=== PATIENT | female | born 1965 | race Caucasian/White ===

== ENCOUNTER 2017-01-30 05:38 | Outpatient (CLI) | payer BC ==
[~2017-01-30] VITALS: Ht 160 cm; Wt 68.9 kg
[~2017-01-30 05:38] MED LIST: ATEN50TA PO; ATOR10TA66; ATOR20TA66 PO; CYCL10TA9 PO; CYCL5TAB PO; DIAZ-345 PO; DIAZ5TAB3 PO; FLDR.1T PO; GABA-488; GABA600T2 PO; HYDR-1231 PO; HYDR12.56 PO; LEVO500T69 PO; LORA-1025 PO; METO-352 PO; NAPR500T3 PO; OMEP20TA7 PO; ONDA-42 SL; PARO20TA57 PO; SERT25TA5 PO; SERT50TA2 PO; SERT50TA9 PO; TRAM200T31 PO; TRAM50TA2 PO; WALK1EAC23 MC
[2017-01-30] MEDS ORDERED: PANT40TA2 PO (15:31)
== END 2017-01-30 15:33 ==
LOC: PREOP 05:38
PROVIDERS: ATTEND Surgery
DX: Z01.818 Encounter for other preprocedural examination (principal); Z12.11 Encounter for screening for malignant neoplasm of colon; K21.9 Gastro-esophageal reflux disease without esophagitis

== ENCOUNTER 2017-02-04 09:01 | Day surgery (SDC) | payer BC ==
[~2017-02-04] VITALS: Ht 160 cm; Wt 68.9 kg
[~2017-02-04 09:01] MED LIST changes: +PANT40TA2 PO
[2017-02-04] MEDS ORDERED: NS IV 1000 ML 1,000 ML IV STA (09:12)
[2017-02-04] MEDS ORDERED: HURRICAINE EXT TUBE (BENZOCAINE) XX PRN (09:15)
[2017-02-04] MEDS ORDERED: NS IV 1000 ML 1,000 ML ONE (09:16)
[2017-02-04 09:27] VITALS: BP 133/86
[2017-02-04] MEDS ORDERED: MIDAZOLAM 2 MG/2 ML (VERSED) VIAL ONE (10:31)
[2017-02-04] MEDS ORDERED: proPOfol 200 MG/20 ML (DIPRIVAN) VIAL IV ONE (10:31)
--- NOTE | 2017-02-04 10:41 | Progress Note-Pre Operative ---
Pre-Operative Progress Note H&P Reviewed The H&P was reviewed, patient examined and no changes noted. Date H&P Reviewed: February 04, 2017 Time H&P Reviewed: 10:39 Pre-Operative Diagnosis: gerd, screening colonoscopy EUFEMIA RAMOS DO February 04, 2017 10:41 am
[2017-02-04] MEDS ORDERED: SUCR1TAB36 PO (11:16)
--- NOTE | 2017-02-04 11:19 | Progress Note-Post Operative ---
Post-Operative Progess Note Surgeon (s)/Asphalt Dauber (s) Surgeon EUFEMIA RAMOS DO Asphalt Dauber: na Pre-Operative Diagnosis gerd, screening colonoscopy Post-Operative Diagnosis hiatal hernia, esophageal erosions, incomplete colonoscopy Procedure & Operative Findings Date of Procedure 02/04/17 Procedure Performed/Findings egd c biopsies, incomplete colonoscopy Anesthesia Type per [facility] Estimated Blood Loss Estimated blood loss (mL): none Specimens/Packing Specimens Removed antrum, distal esophagus EUFEMIA RAMOS DO February 04, 2017 11:19 am
--- NOTE | 2017-02-04 11:19 | Discharge Inst-Simple/Standard ---
Discharge Inst-Standard Discharge Medications New, Converted or Re-Newed RX: Transmitted to Pharmacy Patient Instructions/Follow Up Plan of Care/Instructions/FU: Follow up with Dr. Sanchez in 3 weeks Take protonix 40 mg twice a day for 2 weeks and then once a day after that. Activity as Tolerated: Yes Discharge Diet: No Restrictions SHAYY CHEN APRN February 04, 2017 11:19
[2017-02-04] MEDS ORDERED: HURRICAINE EXT TUBE (BENZOCAINE) ONE (11:25)
[2017-02-04 11:35] VITALS: BP 118/81
[2017-02-04 12:10] VITALS: BP 117/81
--- NOTE | 2017-02-04 12:57 | OPERATIVE REPORT ---
DATE OF SERVICE: 02/04/2017 PREOPERATIVE DIAGNOSIS: GERD, screening colonoscopy. POSTOPERATIVE DIAGNOSES: Hiatal hernia, esophageal erosions and incomplete colonoscopy. PROCEDURE: EGD with biopsies and incomplete colonoscopy. SURGEON: Nils Sanchez DO. ANESTHESIA: Per MDA. ESTIMATED BLOOD LOSS: None. COMPLICATIONS: None. INDICATIONS: The patient is a 51-year-old female with worsening GERD symptoms. She has not had a colonoscopy before. She understands risks and benefits of procedures and wished to proceed with procedure. Consent was signed and in the chart. PROCEDURE: The patient was taken to the endoscopy suite, placed in left lateral recumbent position. Timeout was performed. Scope was inserted in mouth, down into esophagus, stomach and into the duodenum without difficulty. There were no polyps, masses or ulcerations within the duodenum. The scope was slowly retracted back into the stomach, where it was further insufflated. There were no polyps, masses or ulcerations present within the stomach. Biopsy of the antrum was obtained. Scope was retroflexed, noting moderate sized hiatal hernia. Scope was slowly returned to its normal position, slowly withdrawn in the distal esophagus, there was some esophageal erosions present. Biopsy was obtained. Scope was slowly retracted back noting no other pathology. Digital rectal exam was performed. There were no palpable polyps, masses or ulcerations. Scope was inserted in the rectum and advanced to the rectum and into the sigmoid colon. Due to some fixed points within the sigmoid colon, the scope could not be advanced. The patient was repositioned multiple times trying to reposition the colon for further advancement but the scope was unable to be further advanced. At that time, it was decided to slowly retract the scope back. There were no polyps, masses or ulcerations within the sigmoid colon visualized or within the rectum. Scope was also retroflexed in the rectum, noting no other pathology. Scope was returned to its normal position slowly withdrawn until completely removed. RECOMMENDATIONS: The patient will go for barium enema for further evaluation of the colon. She is to have a repeat colonoscopy in ten years if no family history and normal barium enema. If she has family history of colon cancer, it should be in 5 years. If she has any problems prior to that, she should be reevaluated at that time. As for her reflux, the patient will go on Protonix twice a day 40 mg for two weeks and then go to 1 per day. The patient also be started on Carafate 1 gram four times a day. She will follow up in the office in 3 weeks to discuss all findings. Job ID: [id number] DocumentID: [id number] Dictated Date: 02/04/2017 11:22:56 Public Health Service Officer Date: 02/04/2017 11:58:08 Dictated By: DO HARLAN KAUR
[2017-02-04 15:17] VITALS: BP 117/81
--- NOTE | 2017-02-04 15:55 | Diagnostic Imaging Report ---
PROCEDURE: CT abdomen and pelvis with rectal contrast, without intravenous contrast. TECHNIQUE: Multiple contiguous axial images were obtained through the abdomen and pelvis without the use of intravenous contrast. Rectal contrast however is administered with prone and supine images performed. INDICATION: Incomplete colonoscopy. FINDINGS: There are areas of nonspecific fold thickening seen in the colon with no definite sizable polyp or mass. No colonic obstruction. There are scattered diverticula seen in the sigmoid colon. A few distal small bowel loops are opacified with no definite abnormality. There is a small hiatal hernia. There is mild atelectasis in the left lung base. The liver demonstrates geographic areas of low density seen mostly in the left hepatic lobe suggestive of fatty infiltration. The spleen is not enlarged. The adrenals and the pancreas and the gallbladder appear unremarkable for unenhanced exam. The kidneys demonstrate no hydronephrosis. Nonobstructive stone in the upper to mid left kidney measuring 3 mm is seen. No fluid collection or free fluid in the abdomen or pelvis seen. The abdominal aorta is normal in caliber. No para-aortic significantly enlarged lymph node is seen. Mild degenerative changes in the lower lumbar spine and SI joints noted. IMPRESSION: 1. Scattered diverticula in the sigmoid colon. No diverticulitis. 2. Mild nonspecific fold thickening is seen in the colon with no suspicious mass. 3. Small to moderate hiatal hernia. 4. Nonobstructive 3 mm stone in the upper to mid left kidney. 5. Hepatic steatosis. Dictated by: Dictated on workstation # [id number]
== END 2017-02-04 15:15 | disposition home or self-care (01) ==
LOC: ENDO 09:01
PROVIDERS: ATTEND Surgery
DX: Z12.11 Encounter for screening for malignant neoplasm of colon (principal); K21.9 Gastro-esophageal reflux disease without esophagitis; K44.9 Diaphragmatic hernia without obstruction or gangrene; K22.10 Ulcer of esophagus without bleeding; I10 Essential (primary) hypertension; I08.1 Rheumatic disorders of both mitral and tricuspid valves; J43.9 Emphysema, unspecified; F17.210 Nicotine dependence, cigarettes, uncomplicated; F41.9 Anxiety disorder, unspecified; F32.9 Major depressive disorder, single episode, unspecified; N28.9 Disorder of kidney and ureter, unspecified
CPT/HCPCS: 74176

== ENCOUNTER 2017-04-11 10:00 | Outpatient (CLI) | payer BC, OTHER ==
[~2017-04-11 10:00] MED LIST changes: +SUCR1TAB36 PO
== END 2017-04-11 10:30 | disposition home or self-care (01) ==
LOC: SLEEP 10:00
PROVIDERS: ATTEND Internal Medicine Cardiovascular Disease
DX: G47.33 Obstructive sleep apnea (adult) (pediatric) (principal)

== ENCOUNTER 2017-05-14 19:20 | Outpatient (CLI) | payer BC, OTHER ==
[~2017-05-14 19:20] MED LIST changes: -NAPR500T3 PO; +NAPR500T4 PO
== END 2017-05-15 05:27 | disposition home or self-care (01) ==
LOC: SLEEP 19:20
PROVIDERS: ATTEND Nurse Practitioner Family
DX: G47.33 Obstructive sleep apnea (adult) (pediatric) (principal); R06.83 Snoring; I10 Essential (primary) hypertension
CPT/HCPCS: 95811

== ENCOUNTER → 2017-11-14 | Outpatient (CLI) | payer BC, OTHER ==
[~2017-11-14] MED LIST changes: +NAPR-915 PO; -NAPR500T4 PO
== END ==
LOC: CARD 11:26
PROVIDERS: ATTEND Internal Medicine Cardiovascular Disease
DX: R07.9 Chest pain, unspecified (principal); I10 Essential (primary) hypertension; I34.0 Nonrheumatic mitral (valve) insufficiency; R00.2 Palpitations; Z72.0 Tobacco use
CPT/HCPCS: 93306

== ENCOUNTER → 2018-04-06 | Outpatient (CLI) | payer BC ==
[~2018-04-06] MED LIST changes: +OMEG-154 PO
--- NOTE | 2018-04-06 08:36 | Diagnostic Imaging Report ---
PROCEDURE: US Gallbladder. TECHNIQUE: Multiple real-time grayscale images were obtained over the right upper quadrant in various projections. INDICATION: Epigastric pain. COMPARISON: CT abdomen and pelvis from 02/04/2017. FINDINGS: Diffuse increased echogenicity of the liver is most indicative of hepatic steatosis. No focal hepatic mass. The main portal vein is patent with antegrade flow. The gallbladder is distended without gallstones, wall thickening, or pericholecystic fluid. The common bile duct is not visualized as it is obscured by overlying bowel gas. Majority of the pancreas is obscured by overlying bowel gas and therefore suboptimally evaluated. The right kidney is normal in size. No hydronephrosis, shadowing calculi, or suspicious mass lesion. No right upper quadrant ascites. IMPRESSION: 1. Diffuse hepatic steatosis. No focal hepatic lesion. 2. Normal gallbladder. 3. Common bile duct is not visualized as it is obscured by overlying bowel gas from the stomach and the first portion of duodenum. Dictated by: Dictated on workstation # [id number]
== END ==
LOC: RAD 07:16
PROVIDERS: ATTEND Surgery
DX: K76.0 Fatty (change of) liver, not elsewhere classified (principal)
CPT/HCPCS: 76705

== ENCOUNTER → 2018-04-10 | Outpatient (CLI) | payer BC ==
[~2018-04-10] MED LIST changes: +CATHETER FLUSH 10 ML SYR IV PRN
--- NOTE | 2018-04-10 13:43 | Diagnostic Imaging Report ---
INDICATION: Upper abdominal pain. TECHNIQUE: Patient was administered 4.9 mCi technetium-99m Choletec intravenously, and imaging over the abdomen was performed. At 80 minutes, the patient ingested 8 ounces of Ensure, and gallbladder ejection fraction was calculated. FINDINGS: There is homogeneous uptake of activity throughout the liver. Prompt excretion of activity into the common duct and gallbladder is seen. There is normal passage of activity into the small bowel. Gallbladder ejection fraction is normal at 57%. IMPRESSION: Normal HIDA scan and gallbladder ejection fraction. Dictated by: Dictated on workstation # [id number]
== END ==
LOC: CARD 09:24
PROVIDERS: ATTEND Surgery
DX: R10.13 Epigastric pain (principal)
CPT/HCPCS: 78227

== ENCOUNTER 2018-04-22 10:00 | Outpatient (CLI) | payer BC ==
[~2018-04-22] VITALS: Ht 160 cm; Wt 78.0 kg
[~2018-04-22 10:00] MED LIST changes: -CATHETER FLUSH 10 ML SYR IV PRN; -OMEG-154 PO
[2018-04-22] MEDS ORDERED: TRAM50TA2 PO (10:03)
[2018-04-22] MEDS ORDERED: OMEG-154 PO (10:03)
== END 2018-04-22 10:30 | disposition home or self-care (01) ==
LOC: PREOP 10:00
PROVIDERS: ATTEND Surgery
DX: Z01.818 Encounter for other preprocedural examination (principal)

== ENCOUNTER → 2018-05-25 | Outpatient (CLI) | payer BC ==
[~2018-05-25] MED LIST changes: +OMEG-154 PO
--- NOTE | 2018-05-25 10:47 | Diagnostic Imaging Report ---
INDICATION: Routine screening. No prior mammograms are available for comparison. 2-D and 3-D bilateral screening mammography was performed with a Computer Aided Detection (CAD) system. FINDINGS: Both breasts are heterogeneously dense, limiting the sensitivity of mammography. No discrete mass or malignant appearing microcalcifications are seen. Axillae are unremarkable. IMPRESSION: No mammographic features suspicious for malignancy are identified. ACR BI-RADS Category 1: Negative. Result letter will be mailed to the patient. Note: At least 10% of breast cancer is not imaged by mammography. Dictated by: Dictated on workstation # [id number]
== END ==
LOC: RAD 09:10
PROVIDERS: ATTEND Nurse Practitioner Primary Care
DX: Z12.31 Encounter for screening mammogram for malignant neoplasm of breast (principal)
CPT/HCPCS: 77067

== ENCOUNTER → 2018-06-30 | Outpatient (CLI) | payer BC | LOC: RT 08:14 | PROVIDERS: ATTEND Nurse Practitioner Family | DX: R06.09 Other forms of dyspnea (principal); K21.0 Gastro-esophageal reflux disease with esophagitis; R00.2 Palpitations; G47.33 Obstructive sleep apnea (adult) (pediatric); Z72.0 Tobacco use ==

== ENCOUNTER → 2018-07-06 | Outpatient (CLI) | payer BC, OTHER ==
[~2018-07-06] MED LIST changes: +RT-ALBUTEROL SULF 2.5 MG/3 ML PRE-MIX VIAL INH ONE
== END ==
LOC: RT 12:18
PROVIDERS: ATTEND Nurse Practitioner Family
DX: R06.09 Other forms of dyspnea (principal); G47.33 Obstructive sleep apnea (adult) (pediatric); K21.9 Gastro-esophageal reflux disease without esophagitis; K20.9 Esophagitis, unspecified; R00.2 Palpitations; Z72.0 Tobacco use
CPT/HCPCS: 94060; 94640; 94726; 94729

== ENCOUNTER → 2018-07-27 | Outpatient (CLI) | payer BC, OTHER ==
[~2018-07-27] MED LIST changes: +IOHEXOL 350 MG/ML 150 ML (OMNIPAQUE 350) VIAL IV ONE; +NS 250 ML (IVPB) BAG IV ONE; +RECEIVED CONTRAST (Hold Metformin) IV SCH; -RT-ALBUTEROL SULF 2.5 MG/3 ML PRE-MIX VIAL INH ONE
[2018-07-27 09:21] LABS: BASOPHILS % (AUTO) 1 % (0-10); EOSINOPHILS # (AUTO) 0.1 10^3/uL (0.0-0.3); EOSINOPHILS % (AUTO) 2 % (0-10); HEMATOCRIT 44 % (35-52); HEMOGLOBIN 14.6 G/DL (11.5-16.0); LYMPHOCYTES # (AUTO) 1.9 X 10^3 (1.0-4.0); LYMPHOCYTES % (AUTO) 30 % (12-44); MEAN CORPUSCULAR HEMOGLOBIN 31 PG (25-34); MEAN CORPUSCULAR HGB CONC 33 G/DL (32-36); MEAN CORPUSCULAR VOLUME 94 FL (80-99); MEAN PLATELET VOLUME 9.1 FL (7.4-10.4); MONOCYTES # (AUTO) 0.4 X 10^3 (0.0-1.0); MONOCYTES % (AUTO) 6 % (0-12); NEUTROPHILS # (AUTO) 3.9 X 10^3 (1.8-7.8); NEUTROPHILS % (AUTO) 62 % (42-75); PLATELET COUNT 223 10^3/uL (130-400); RED BLOOD COUNT 4.68 10^6/uL (4.35-5.85); RED CELL DISTRIBUTION WIDTH 12.7 % (10.0-14.5); WHITE BLOOD COUNT 6.3 10^3/uL (4.3-11.0)
[2018-07-27 09:45] LABS: BUN/CREATININE RATIO 9; GFR ESTIMATED > 60
--- NOTE | 2018-07-27 12:00 | Diagnostic Imaging Report ---
CLINICAL INDICATION: Patient with dyspnea on exertion and decreased diffusion capacity of the lung. Patient is tobacco user. COMPARISON: Ultrasound venous Doppler of the bilateral lower extremity dated 04/04/2015. PROCEDURE: Real-time bilateral lower extremity venous Doppler duplex evaluation is performed from the inguinal region through the popliteal fossa. The calf venous structures are also evaluated. FINDINGS: The deep venous system is well visualized and is easily compressible. There is no evidence of deep venous thrombosis, valvular incompetence, or significant collateral circulation. Benign-appearing lymph node in the left groin region is seen. IMPRESSION: There is no ultrasound Doppler evidence of deep venous thrombosis in the bilateral lower extremities. Dictated by: Dictated on workstation # [id number]
--- NOTE | 2018-07-27 13:35 | Diagnostic Imaging Report ---
PROCEDURE: CT angiography of the chest with contrast. TECHNIQUE: Multiple contiguous axial images were obtained through the chest after uneventful bolus administration of intravenous contrast. 2D reconstructed CTA MIP acquisitions were also performed. INDICATION: Decreased oxygen levels. FINDINGS: The previous CTA chest exam of 04/04/2015 noted emphysematous changes involving both lungs but failed to show any sign of an acute abnormality. In particular, there was no evidence for a pulmonary embolus. On this study, there is still no defect within the pulmonary arteries to indicate a pulmonary embolus. The aorta is not abnormally dilated, and there is no sign of a dissection. The heart size is stable. The emphysematous changes involving both lungs seen previously are again evident. There is still no sign of failure, pneumonia, or of a pleural effusion to indicate an acute abnormality. There is no new mediastinal or hilar adenopathy. There is a 1.4 x 1 x 2.0 cm lymph node in the aorticopulmonary window. This was present on the prior exam, at which time, it measured approximately 1.5 x 1.6 cm. This lymph node is nonspecific in appearance. Just superior to this, there is another lymph node measuring 0.5 x 0.7 cm. This was also present on the prior exam and measured 0.6 x 0.5 cm. Also, in the interval since the prior study, a well-circumscribed 0.7 cm area of low density has developed in the right lobe of the thyroid. Ultrasound would be recommended to better characterize this finding. There is no obvious breast mass. The sections through the upper abdomen fail to show any sign of an acute abnormality. 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 The hiatal hernia seen previously is again evident and no different. The bone windows are unremarkable for a fracture or for a destructive lesion. IMPRESSION: 1. There is no evidence for an acute cardiopulmonary abnormality. 2. The lymph nodes in the aorticopulmonary window seen previously are slightly more prominent than on the prior exam. These nodes are nonspecific in appearance. It may prove worthwhile to have a short-term (three-month) followup CT chest exam for further study. 3. Ultrasound would be recommended for further evaluation of the small low-density area in the right lobe of the thyroid. 4. The appearance of the liver does suggest fatty metamorphosis. Dictated by: Dictated on workstation # [id number]
== END ==
LOC: RAD 09:06
PROVIDERS: ATTEND Nurse Practitioner Family
DX: K21.9 Gastro-esophageal reflux disease without esophagitis (principal); R06.09 Other forms of dyspnea; R09.02 Hypoxemia; R00.2 Palpitations; R94.2 Abnormal results of pulmonary function studies; Z72.0 Tobacco use
CPT/HCPCS: 36415; 71275; 82565; 84520; 85025; 93970

== ENCOUNTER 2018-08-06 05:32 | Outpatient (CLI) | payer BC, OTHER ==
[~2018-08-06] VITALS: Ht 160 cm; Wt 78.0 kg
[~2018-08-06 05:32] MED LIST changes: -IOHEXOL 350 MG/ML 150 ML (OMNIPAQUE 350) VIAL IV ONE; -NS 250 ML (IVPB) BAG IV ONE; -RECEIVED CONTRAST (Hold Metformin) IV SCH
[2018-08-06] MEDS ORDERED: BUDE10.22 IH (14:48)
[2018-08-06] MEDS ORDERED: RT-ALBUINH INH (14:48)
[2018-08-06] MEDS ORDERED: FLUT9.9S NS (14:48)
== END 2018-08-06 14:49 | disposition home or self-care (01) ==
LOC: PREOP 05:32
PROVIDERS: ATTEND Internal Medicine Critical Care Medicine
DX: Z01.818 Encounter for other preprocedural examination (principal)

== ENCOUNTER 2018-08-10 08:17 | Outpatient (RCR) | payer BC, OTHER ==
[~2018-08-10] VITALS: Ht 157.5 cm; Wt 80.3 kg
[~2018-08-10 08:17] MED LIST changes: +BUDE10.22 IH; +FLUT9.9S NS; -GABA600T2 PO; +GBPN600T PO; +RT-ALBUINH INH
[2018-08-10 08:23] VITALS: BP 120/50
--- NOTE | 2018-08-10 11:08 | Pulmonary Rehab Eval/Txmt Plan ---
Pulmonary Rehab Initial Eval Information Paper Evaluation Completed: No Date: Aug 10, 2018 Therapist: YAHAIRA OSMAN Pulmonary Rehab Treatment Plan Treatment P Treatment Periord: Initial Diagnosis Diagnosis: DECREASED DIFFUSION CAPACITY Date: Aug 10, 2018 Assessment/Problems Exercise: Deconditioning, Decreased Exer Tolerance, No Regular Exercise, Sedentary Type: AEROBIC Frequency: 2 X PER WEEK Duration: 1 HR CLASS, EXERCISE PER PT'S TOLERANCE Barriers to Exercise: CYATIC PAIN Initial MET Level: 2 Aerobic Exercise/Goals Freq: time per week minus LA: 2 MET Level=: 2 Type: Arm Ergometry, Bike, Scifi/Nustep, Treadmill JOSE CRUZ DO Aug 10, 2018 11:08
== END 2018-11-08 | disposition home or self-care (01) ==
LOC: PULM 08:17
PROVIDERS: ATTEND Nurse Practitioner Family
DX: R94.2 Abnormal results of pulmonary function studies (principal); R06.09 Other forms of dyspnea; Z72.0 Tobacco use

== ENCOUNTER 2018-08-12 06:55 | Day surgery (SDC) | payer BC, OTHER ==
[~2018-08-12] VITALS: Ht 157.5 cm; Wt 80.3 kg
[~2018-08-12 06:55] MED LIST changes: +GABA600T2 PO; -GBPN600T PO
[2018-08-12] MEDS ORDERED: LACTATED RINGERS 1,000 ML IV ONE (06:56)
[2018-08-12] MEDS ORDERED: LIDOCAINE PF 1% 2 ML AMP IJ ONE (06:56)
[2018-08-12] MEDS ORDERED: LIDOCAINE PF 2% 5 ML (XYLOCAINE) VIAL INJ ONE (06:56)
[2018-08-12] MEDS ORDERED: LACTATED RINGERS 1,000 ML IV STA (07:03)
--- OUTSIDE RECORDS SUMMARY | 2018-08-12 07:04 | XMS REPORT ---
Author Author JOHANNY KINNEY Organization [facility] Address [address] [place] [address] Care Team Providers Care Special Education Case Manager Name Role Phone JOHANNY KINNEY Unavailable PROBLEMS Type Condition ICD9-CM Code HCB37-RR Code Onset Dates Condition Status SNOMED Code Problem Cervical disc disease M50.90 Active 886816620 Problem Anxiety disorder, unspecified F41.9 Active 354674469 Problem Gastroesophageal reflux disease, esophagitis presence not specified K21.9 Active 275788006 Problem Pulmonary emphysema, unspecified emphysema type J43.9 Active 36999234 Problem Chronic maxillary sinusitis J32.0 Active 11536023 Problem Prediabetes R73.03 Active 337993803 Problem Mixed hyperlipidemia E78.2 Active 397737871 Problem Right maxillary sinusitis J32.0 Active 59875473 Problem Sinusitis chronic, frontal J32.1 Active 09138507 Problem Hypertension I10 Active 60068148 Problem Reactive depression F32.9 Active 68597680 Problem Lumbago with sciatica, right side M54.41 Active 496227709 Problem Sciatica M54.30 Active 55339996 Problem Other chronic pain G89.29 Active 27703900 Problem PVCs (premature ventricular contractions) I49.3 Active 58991794 Problem Neck pain M54.2 Active 13528748 ALLERGIES No Information ENCOUNTERS Encounter Location Date Diagnosis [facility] [address] [address] Aug, Low back pain M54.5 [facility] [id number] [place] [address] 59802- 9180 Jul, Low back pain M54.5 [facility] [address] [address] 2458 Jul, Low back pain M54.5 [facility] [id number] [place] [address] 89035- 8268 Jun, Low back pain M54.5 [facility] [id number] [place] [address] 92713- 8647 Jun, Low back pain M54.5 [facility] [id number] [place] [address] 86777- 1305 Jun, Low back pain M54.5 [facility] [id number] [place] [address] 00349- 1848 24 May, 2018 Elevated glucose R73.09 [facility] [id number] [place] [address] 00161- 4524 18 May, 2018 Elevated glucose R73.09 [facility] [id number] [place] [address] 69569- 7519 11 May, 2018 Screening for breast cancer Z12.31 ; Well woman exam Z01.419 and Hypertension I10 [facility] [id number] [place] [address] 04725- 2797 May, Low back pain M54.5 [facility] [id number] [place] [address] 07682- 0146 May, Low back pain M54.5 [facility] [id number] [place] [address] 25337- 4765 Apr, [facility] [id number] [place] [address] 46249- 6378 Apr, [facility] [id number] [place] [address] 16678- 6525 Apr, Lumbago with sciatica, right side M54.41 ; Right maxillary sinusitis J32.0 ; Pulmonary emphysema, unspecified emphysema type J43.9 ; Hypertension I10 and Reactive depression F32.9 [facility] [id number] [place] [address] 10978- 0801 Apr, [facility] [id number] [place] [address] 71948- 8781 Apr, Low back pain M54.5 [facility] [address] 39234- 0560 Apr, Low back pain M54.5 [facility] [id number] [place] [address] 30355- 4875 Mar, Gastroesophageal reflux disease, esophagitis presence not specified K21.9 and Low back pain M54.5 [facility] [id number] [place] [address] 98765 -2279 Feb, Chronic maxillary sinusitis J32.0 [facility] [address] 03540- 1065 Feb, Low back pain M54.5 [facility] [address] 59767- 5629 Feb, Low back pain M54.5 [facility] [address] 00152- 9594 Feb, Low back pain M54.5 [facility] [address] 93212- 3767 January, [facility] [id number] [place] [address] 27080- 2373 January, Sinusitis chronic, frontal J32.1 [facility] [address] 51719- 4526 January, Lumbago with sciatica, right side M54.41 ; Cervical disc disease M50.90 ; Hypertension I10 and Gastroesophageal reflux disease, esophagitis presence not specified K21.9 [facility] [id number] [place] [address] 19475- 2660 Dec, Low back pain M54.5 [facility] [id number] [place] [address] 73761- 7038 Dec, Low back pain M54.5 [facility] [id number] [place] [address] 57329- 4833 Nov, [facility] [address] 63574 -8039 Nov, Right maxillary sinusitis J32.0 [facility] [address] 24943- 9148 Nov, Low back pain M54.5 [facility] [address] 80721 -0298 Oct, Sinusitis chronic, frontal J32.1 [facility] [address] 95552- 5122 Oct, Neck pain M54.2 [facility] [address] 41510- 1360 Sep, Low back pain M54.5 [facility] [address] 53517- 8230 Sep, Neck pain M54.2 [facility] [address] 02205- 9778 Sep, Lumbago with sciatica, right side M54.41 ; Hypertension I10 ; Bronchitis J40 and Anxiety disorder, unspecified F41.9 [facility] [address] 69963- 3012 Aug, Neck pain M54.2 and Low back pain M54.5 [facility] [address] 14426- 9232 Jul, Neck pain M54.2 and Low back pain M54.5 [facility] [address] 27186- 7953 Jul, Neck pain M54.2 [facility] [address] 66169- 0618 Jun, Low back pain M54.5 and Neck pain M54.2 [facility] [id number] [place] [address] 65362- 4792 22 May, 2017 Low back pain M54.5 and Neck pain M54.2 [facility] [id number] [place] [address] 16902- 6333 21 May, 2017 [facility] [id number] [place] [address] 45266 -3523 14 May, 2017 Bronchitis J40 [facility] [id number] [place] [address] 91683- 1619 11 Apr, 2017 Hyperglycemia R73.9 [facility] [address] 21633- 5941 08 Apr, 2017 Hyperglycemia R73.9 [facility] [id number] [place] [address] 17450- 3822 Apr, Gastroesophageal reflux disease, esophagitis presence not specified K21.9 ; Mixed hyperlipidemia E78.2 ; Neck pain M54.2 and PVCs ( premature ventricular contractions) I49.3 [facility] [id number] [place] [address] 63304- 0974 Mar, Low back pain M54.5 [facility] [id number] [place] [address] 04200- 9012 Feb, Low back pain M54.5 and Gastroesophageal reflux disease, esophagitis presence not specified K21.9 [facility] [id number] [place] [address] 58050- 1681 January, Dyspnea on exertion R06.09 [facility] [address] 79989- 3985 January, Hypertension I10 [facility] [id number] [place] [address] 17273- 7555 January, [facility] [id number] [place] [address] 51066- 2513 January, Low back pain M54.5 [facility] [id number] [place] [address] 05073- 1808 January, Low back pain M54.5 [facility] [id number] [place] [address] 54872- 4118 January, Gastroesophageal reflux disease, esophagitis presence not specified K21.9 ; Lumbago with sciatica, right side M54.41 and Dyspnea on exertion R06.09 [facility] [address] 27012- 7777 30 Nov, 2016 [facility] [address] 25347- 7094 Nov, [facility] [address] 74547- 4210 Nov, Gastroesophageal reflux disease, esophagitis presence not specified K21.9 and Bronchitis J40 [facility] [id number] [place] [address] 57794- 2526 15 Oct, 2016 Low back pain M54.5 and Anxiety disorder, unspecified F41.9 [facility] [id number] [place] [address] 73381- 5939 10 Oct, 2016 Bronchitis J40 ; Hypertension I10 ; Sciatica M54.30 and Paresthesias R20.2 [facility] [address] [id number] Sep, Dental examination Z01.20 [facility] [address] [id number] Sep, Dental examination Z01.20 and Dental caries K02.9 [facility] [address] 36635- 4125 Aug, [facility] [address] 10270- 4025 Jul, Low back pain M54.5 and Anxiety disorder, unspecified F41.9 [facility] [address] [address]- 6766 Jul, [facility] [id number] [place] [address], [place] [address]- 5052 Jun, Lumbago with sciatica, right side M54.41 ; Cervical disc disease M50.90 and Gastroesophageal reflux disease, esophagitis presence not specified K21.9 [facility] [id number] [place] [address], [place] [address]- 4525 Jun, [facility] [address] [facility] [id number] [place] [address], [place] [address]- 5318 Jun, [facility] [id number] [place] [address], [place] [address]- 4136 Jun, [facility] [id number] [place] [address], [place] [address]- 1075 Jun, [facility] [id number] [place] [address], [place] [address]- 9703 Jun, [facility] [address] [address]- 7032 May, [facility] [id number] [place] [address], [place] [address]- 9839 May, [facility] [address] [address]- 6539 May, [facility] [address] [address]- 1276 Apr, [facility] [id number] [address]- 2548 Apr, [facility] [id number] [place] [address], [place] [address]- 5587 Apr, [facility] [address] [address]- 4099 Apr, Cervical disc disease M50.90 [facility] [id number] [place] [address] 72730- 7294 Apr, [facility] [id number] [place] [address] 24316- 8170 Apr, Neck pain M54.2 ; Hypertension I10 and Reactive depression F32.9 [facility] [id number] [place] [address] 17312- 0312 Mar, [facility] [id number] [place] [address] 08400- 4897 Mar, [facility] [id number] [place] [address] 11801- 3920 Mar, [facility] [id number] [place] [address] 75421- 6892 Feb, Sciatica M54.30 [facility] [id number] [place] [address] 26802- 6203 Feb, Paresthesias R20.2 ; Sciatica M54.30 and Reactive depression F32.9 [facility] [id number] [place] [address] 98463- 1248 Feb, [facility] [id number] [place] [address] 87265- 3492 January, [facility] [id number] [place] [address] 24850- 0069 January, Hyperlipemia, mixed E78.2 ; Other abnormalities of heart beat R00.8 and Anxiety F41.9 [facility] [id number] [place] [address] 24135- 6831 January, [facility] [id number] [place] [address] 29850- 2153 January, Low back pain M54.5 [facility] [id number] [place] [address] 70445- 8768 January, Anxiety disorder, unspecified F41.9 [facility] [id number] [place] [address] 16008- 8241 Dec, Ventricular bigeminy I49.9 [facility] [id number] [place] [address] 84596- 1213 Dec, [facility] [id number] [place] [address] 23804- 2533 Dec, Low back pain M54.5 [facility] [address] 16687- 7633 Dec, Sciatica M54.30 [facility] [id number] [place] [address] 32957- 5375 Nov, Major depressive disorder, single episode, unspecified F32.9 [facility] [id number] [place] [address] 54444- 1473 Nov, Sciatica M54.30 [facility] [address] 59026- 7610 Nov, [facility] [id number] [place] [address] 71454- 4535 Nov, [facility] [address] 98713- 3924 Nov, Anxiety disorder, unspecified F41.9 [facility] [id number] [place] [address] 40874- 0727 Nov, [facility] [id number] [place] [address] 38982- 9333 Nov, Depressed F32.9 and Anxiety F41.9 [facility] [id number] [place] [address] 23190- 0072 Nov, Lumbago 724.2 ; Sciatica M54.30 and PVCs (premature ventricular contractions) I49.3 [facility] [id number] [place] [address] 34282- 8122 Oct, [facility] [address] 17307- 5446 Oct, [facility] [id number] [place] [address] 84071- 7762 Oct, Sciatica M54.30 and Hypertension I10 [facility] [id number] [place] [address] 30923- 2096 Oct, [facility] [id number] [place] [address] 71504- 5346 Oct, [facility] [id number] [place] [address] 26285- 6617 Oct, [facility] [id number] [place] [address] 54250- 1491 Sep, [facility] [id number] [place] [address] 44326- 9022 Sep, [facility] [id number] [place] [address] 84139- 7016 Sep, [facility] [id number] [place] [address] 96629- 7082 Sep, Ventricular arrhythmia I49.9 [facility] [address] [place] [address] 35490- 2682 Sep, Ventricular bigeminy I49.9 and Hypertension I10 [facility] [id number] [place] [address] 51648- 9507 Sep, Lumbago M54.5 and Ventricular bigeminy I49.9 [facility] [address] [place] [address] 07235- 2069 Sep, [facility] [id number] [place] [address] 82508- 7089 Aug, [facility] [address] [place] [address] 17879- 5326 Aug, [facility] [id number] [place] [address] 69305- 1102 Aug, [facility] [address]- 9362 Aug, [facility] [address] [address]- 1748 Aug, [facility] [address] [address]- 3518 Jul, [facility] [address] 3730 Jun, [facility] [address] 8637 May, [facility] [address] 1931 May, [facility] [address]- 3498 May, Lumbago 724.2 and Depressive disorder, not elsewhere classified 311 [facility] [id number] [address]- 1192 Apr, UTI (urinary tract infection) 599.0 [facility] [address] 9689 Apr, UTI (urinary tract infection) 599.0 and Depression 311 [facility] [address] [address]- 8149 Mar, [facility] [id number] [address]- 4550 Mar, [facility] [address] [address]- 9805 Mar, [facility] [id number] 1004 Mar, Unspecified essential hypertension 401.9 ; Lumbago 724.2 and Anxiety 300.00 [facility] [address] [address]- 9728 Mar, [facility] [place] [facility] [address] [id number] [place] [address]- 5788 Feb, [facility] [place] [facility] [address] [id number] [place] [address]- 7613 Feb, [facility] [place] [facility] [address] [id number] [place] [address]- 4040 January, [facility] [place] [facility] [address] [id number] [place] [address]- 3151 Dec, [facility] [place] [facility] [address] [id number] [place] [address]- 6432 Dec, [facility] [place] [facility] [address] [id number] [place] [address]- 6126 Oct, [facility] [place] [facility] [address] [id number] [place] [address]- 5353 Oct, [facility] [place] [facility] [address] [id number] [place] [address]- 9829 Oct, [facility] [place] [facility] [address] [id number] [place] [address]- 5947 Oct, [facility] [place] [facility] [address] [facility] [id number] [place] [address]- 2194 Sep, [facility] [place] [facility] [address] [id number] [place] [address]- 7278 Sep, [facility] [place] [facility] [address] [id number] [place] [address]- 4115 Sep, [facility] [place] [facility] [address] [id number] [place] [address]- 6365 Sep, [facility] [place] [facility] [address] [id number] [place] [address]- 8904 Aug, [facility] [place] [facility] [address] [id number] [place] [address]- 4439 Aug, [facility] [place] [facility] [address] [id number] [place] [address]- 8410 Jul, [facility] [place] [facility] [address] [id number] [place] [address]- 7198 Jul, [facility] [place] [facility] [address] [id number] [place] [address]- 8070 Jun, [facility] [place] [facility] [address] [id number] [place] [address]- 1959 Jun, [facility] [place] [facility] [address] [id number] [place] [address]- 9117 Jun, [facility] [place] [facility] [address] [id number] [place] [address]- 7827 Jun, [facility] [place] [facility] [address] [id number] [place] [address]- 4802 Jun, [facility] [place] [facility] [address] [id number] [place] [address]- 4792 Jun, [facility] [place] [facility] [address] [id number] [place] [address]- 9567 May, [facility] [place] [facility] [address] [id number] [place] [address]- 6509 May, [facility] [place] [facility] [address] [id number] [place] [address]- 0073 Apr, [facility] [place] [facility] [address] [id number] [place] [address]- 2993 Apr, [facility] [place] [facility] [address] [id number] [place] [address]- 5857 Apr, [facility] [place] [facility] [address] [id number] [place] [address]- 1087 Apr, [facility] [place] [facility] [address] [id number] [place] [address]- 8447 Mar, [facility] [place] [facility] [address] [id number] [place] [address]- 0755 Mar, [facility] [place] [facility] [address] [id number] [place] [address]- 4806 Mar, [facility] [place] [facility] [address] [id number] [place] [address]- 4546 Mar, [facility] [place] [facility] [address] [id number] [place] [address]- 5139 Mar, [facility] [place] [facility] [address] [id number] [place] [address]- 4329 Mar, [facility] [place] [facility] [address] [id number] [place] [address]- 1410 Mar, [facility] [place] [facility] [address] [id number] [place] [address]- 7718 Mar, [facility] [place] [facility] [address] [id number] [place] [address]- 4601 Feb, [facility] [place] [facility] [address] [id number] [place] [address] Feb, [facility] [place] [facility] [address] [id number] [place] [address] January, [facility] [place] [facility] [address] [id number] [place] [address] January, [facility] [place] [facility] [address] [id number] [place] [address] January, [facility] [place] [facility] [address] [id number] [place] [address] January, [facility] [place] [facility] [address] [id number] [place] [address] Dec, [facility] [place] [facility] [address] [id number] [place] [address] Dec, [facility] [place] [facility] [address] [id number] [place] [address] Dec, [facility] [place] [facility] [address] [id number] [place] [address] 14 Dec, 2013 [facility] [place] [facility] [address] [id number] [place] [address] 13 Nov, 2013 [facility] [place] [facility] [address] [id number] [place] [address] 13 Nov, 2013 [facility] [place] [facility] [address] [id number] [place] [address] Sep, [facility] [place] [facility] [address] [id number] [place] [address] Sep, [facility] [place] [facility] [address] [id number] [place] [address] Sep, [facility] [place] [facility] [address] [id number] [place] [address] Sep, [facility] [place] [facility] [address] [id number] [place] [address] Sep, [facility] [place] [facility] [address] [id number] [place] [address] Sep, [facility] [place] [facility] [address] [id number] [place] [address] Aug, [facility] [place] [facility] [address] [id number] [place] [address] Aug, [facility] [place] [facility] [address] [id number] [place] [address] Aug, [facility] [place] [facility] [address] [id number] [place] [address] Aug, [facility] [place] [facility] [address] [id number] [place] [address] Jul, [facility] [place] [facility] [address] [id number] [place] [address] 11 Jul, 2013 [facility] [place] [facility] [address] [id number] [place] [address] Jun, [facility] [id number] [address] Jun, [facility] [id number] [address] Mar, [facility] [id number] [address] January, [facility] [id number] [address] Dec, [facility] [id number] [address] Dec, [facility] [id number] [place] [address] Nov, [facility] [id number] [address] Nov, [facility] [id number] [address] Oct, [facility] [id number] [address] January, [facility] [id number] [address] Dec, [facility] [id number] [address] Sep, IMMUNIZATIONS No Known Immunizations SOCIAL HISTORY Never Assessed REASON FOR VISIT Controlled Med Refill PLAN OF CARE VITAL SIGNS MEDICATIONS Medication Instructions Dosage Frequency Start Date End Date Duration Status Tramadol HCl 50MG Orally, each fill must last 30 days every 6 hours 1 tablet 6h 28 days Active RESULTS No Results PROCEDURES No Known procedures INSTRUCTIONS MEDICATIONS ADMINISTERED No Known Medications MEDICAL (GENERAL) HISTORY Type Description Date Medical History hypertension Medical History anxiety Medical History renal disease Medical History heart disease Medical History heart murmur (skips a beat) Medical History COPD Medical History arthritis Medical History back trouble Surgical History hysterectomy Surgical History Dr. Cottrell took out cyst off Thyroid 09/07/2016 Surgical History endoscope 04/28/2018 Hospitalization History Hospitalization for surgery only Hospitalization History hypertension and heart 09/28/2015 Hospitalization History ER for hypertension 10/24/2015 Hospitalization History Right ankle was smashed 01/2016 Hospitalization History cyst removed from thyroid 09/06/15
--- OUTSIDE RECORDS SUMMARY | 2018-08-12 07:05 | XMS REPORT ---
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 Role Phone JOHANNY KINNEY Unavailable PROBLEMS Type Condition ICD9-CM Code TCK83-ZH Code Onset Dates Condition Status SNOMED Code Problem Cervical disc disease M50.90 Active 593962449 Problem Anxiety disorder, unspecified F41.9 Active 829694220 Problem Gastroesophageal reflux disease, esophagitis presence not specified K21.9 Active 062706451 Problem Pulmonary emphysema, unspecified emphysema type J43.9 Active 09434317 Problem Chronic maxillary sinusitis J32.0 Active 48978535 Problem Prediabetes R73.03 Active 738870237 Problem Mixed hyperlipidemia E78.2 Active 644306188 Problem Right maxillary sinusitis J32.0 Active 25274493 Problem Sinusitis chronic, frontal J32.1 Active 01738701 Problem Hypertension I10 Active 28634135 Problem Reactive depression F32.9 Active 05801491 Problem Lumbago with sciatica, right side M54.41 Active 982224790 Problem Sciatica M54.30 Active 34045941 Problem Other chronic pain G89.29 Active 67566238 Problem PVCs (premature ventricular contractions) I49.3 Active 28396062 Problem Neck pain M54.2 Active 70121170 ALLERGIES No Information ENCOUNTERS Encounter Location Date Diagnosis [facility] [place] [facility] [id number], [place] [address] Jul, Low back pain M54.5 [facility] [place] [facility] [id number] [place] [address] 43452- 9701 Jul, Low back pain M54.5 [facility] [place] [facility] [id number], [place] [address] Jun, Low back pain M54.5 [facility] [place] [facility] [id number] [place] [address] 17073- 6852 Jun, Low back pain M54.5 [facility] [place] [facility] [id number] [place] [address] 41342- 9722 04 Jun, 2018 Low back pain M54.5 [facility] [place] [facility] [id number] [place] [address] 96539- 5719 24 May, 2018 Elevated glucose R73.09 [facility] [place] [facility] [id number] [place] [address] 96076- 6312 18 May, 2018 Elevated glucose R73.09 [facility] [place] [facility] [id number] [place] [address] 82064- 0895 11 May, 2018 Screening for breast cancer Z12.31 ; Well woman exam Z01.419 and Hypertension I10 [place] [facility] [id number] [place] [address] 20940- 1265 May, Low back pain M54.5 [facility] [place] [facility] [id number] [place] [address] 35105- 5534 May, Low back pain M54.5 [facility] [place] [facility] [id number] [place] [address] 30057- 0052 Apr, [facility] [place] [facility] [id number] [place] [address] 64597- 0808 Apr, [facility] [place] [facility] [id number] [place] [address] 28737- 2179 Apr, Lumbago with sciatica, right side M54.41 ; Right maxillary sinusitis J32.0 ; Pulmonary emphysema, unspecified emphysema type J43.9 ; Hypertension I10 and Reactive depression F32.9 [facility] [place] [facility] [id number] [place] [address] 21508- 7897 Apr, [facility] [place] [facility] [id number] [place] [address] 98546- 2020 Apr, Low back pain M54.5 [facility] [place] [facility] [address] [place] [address] 1310 Apr, Low back pain M54.5 [facility] [place] [facility] [id number] [place] [address] 27088- 5936 Mar, Gastroesophageal reflux disease, esophagitis presence not specified K21.9 and Low back pain M54.5 [facility] [id number] [place] [address] 73537 -0729 Feb, Chronic maxillary sinusitis J32.0 [facility] [place] [facility] [id number] [place] [address] 56272- 4421 Feb, Low back pain M54.5 [facility] [place] [facility] [address] 88578- 1393 Feb, Low back pain M54.5 [facility] [place] [facility] [id number] [place] [address] 89914- 3894 Feb, Low back pain M54.5 [facility] [place] [facility] [id number] [place] [address] 41711- 3248 January, [facility] [place] [facility] [address] 23747- 7818 January, Sinusitis chronic, frontal J32.1 [facility] [place] [facility] [id number] [place] [address] 41527- 3174 January, Lumbago with sciatica, right side M54.41 ; Cervical disc disease M50.90 ; Hypertension I10 and Gastroesophageal reflux disease, esophagitis presence not specified K21.9 [facility] [place] [facility] [id number] [place] [address] 85756- 3293 Dec, Low back pain M54.5 [facility] [place] [facility] [id number] [place] [address] 74247- 0299 Dec, Low back pain M54.5 [facility] [place] [facility] [id number] [place] [address] 18152- 2795 Nov, [facility] [id number] [place] [address] 83576 -9761 Nov, Right maxillary sinusitis J32.0 [facility] [place] [facility] [address] 35575- 7454 15 Nov, 2017 Low back pain M54.5 [facility] [address] 80482 -6098 Oct, Sinusitis chronic, frontal J32.1 [facility] [place] [facility] [address] 70039- 7647 Oct, Neck pain M54.2 [place] [facility] [address] 12984- 9139 Sep, Low back pain M54.5 [place] [facility] [address] 87743- 3559 Sep, Neck pain M54.2 [place] [facility] [address] 96005- 0724 Sep, Lumbago with sciatica, right side M54.41 ; Hypertension I10 ; Bronchitis J40 and Anxiety disorder, unspecified F41.9 [place] [facility] [address] 81410- 5044 Aug, Neck pain M54.2 and Low back pain M54.5 [facility] [facility] [address] 15975- 7085 16 Jul, 2017 Neck pain M54.2 and Low back pain M54.5 [facility] [facility] [address] 19139- 7120 06 Jul, 2017 Neck pain M54.2 [place] [facility] [address] 63540- 7141 20 Jun, 2017 Low back pain M54.5 and Neck pain M54.2 [facility] [facility] [address] 39871- 0441 May, Low back pain M54.5 and Neck pain M54.2 [facility] [place] [facility] [id number] [place] [address] 13254- 6304 21 May, 2017 [facility] [id number] [place] [address] 06136 -2341 14 May, 2017 Bronchitis J40 [facility] [place] [facility] [address] 92805- 3832 11 Apr, 2017 Hyperglycemia R73.9 [facility] [place] [facility] [address] 30539- 0306 08 Apr, 2017 Hyperglycemia R73.9 [place] [facility] [address] 57619- 2896 07 Apr, 2017 Gastroesophageal reflux disease, esophagitis presence not specified K21.9 ; Mixed hyperlipidemia E78.2 ; Neck pain M54.2 and PVCs ( premature ventricular contractions) I49.3 [facility] [facility] [address] 68598- 8780 Mar, Low back pain M54.5 [facility] [place] [facility] [id number] [place] [address] 85088- 3945 Feb, Low back pain M54.5 and Gastroesophageal reflux disease, esophagitis presence not specified K21.9 [facility] [place] [facility] [id number] [place] [address] 12437- 5649 January, Dyspnea on exertion R06.09 [facility] [place] [facility] [id number] [place] [address] 61835- 6248 January, Hypertension I10 [facility] [place] [facility] [id number] [place] [address] 31719- 3419 January, [facility] [address] 71395- 3446 January, Low back pain M54.5 [facility] [place] [facility] [id number] [place] [address] 46453- 8398 January, Low back pain M54.5 [facility] [place] [facility] [id number] [place] [address] 88133- 2399 January, Gastroesophageal reflux disease, esophagitis presence not specified K21.9 ; Lumbago with sciatica, right side M54.41 and Dyspnea on exertion R06.09 [facility] [facility] [address] 60737- 7865 Nov, [facility] [place] [facility] [address] 52490- 8307 Nov, [place] [address] 49071- 6987 Nov, Gastroesophageal reflux disease, esophagitis presence not specified K21.9 and Bronchitis J40 [place] [address] 33922- 4660 15 Oct, 2016 Low back pain M54.5 and Anxiety disorder, unspecified F41.9 [place] [facility] [address] 40286- 0149 10 Oct, 2016 Bronchitis J40 ; Hypertension I10 ; Sciatica M54.30 and Paresthesias R20.2 [facility] [address] [id number] Sep, Dental examination Z01.20 [facility] [id number] [place] [address] [id number] Sep, Dental examination Z01.20 and Dental caries K02.9 [place] [facility] [id number] [place] [address] 73724- 9689 Aug, [place] [facility] [address] 17769- 4769 17 Jul, 2016 Low back pain M54.5 and Anxiety disorder, unspecified F41.9 [place] [facility] [address] 37513- 2281 Jul, [place] [facility] [address] 80337- 8935 Jun, Lumbago with sciatica, right side M54.41 ; Cervical disc disease M50.90 and Gastroesophageal reflux disease, esophagitis presence not specified K21.9 [facility] [place] [facility] [address], [place] [address]- 3409 Jun, [facility] [place] [facility] [id number] [place] [address] 80490- 6654 Jun, [facility] [place] [facility] [id number] [place] [address] 84322- 5036 Jun, [facility] [place] [facility] [id number] [place] [address] 46535- 1082 Jun, [facility] [place] [facility] [id number] [place] [address] 49489- 3705 Jun, [facility] [place] [facility] [id number] [place] [address] 97770- 3448 May, [facility] [place] [facility] [id number] [place] [address] 41498- 8466 May, [facility] [place] [facility] [id number] [place] [address] 48767- 1439 May, [facility] [place] [facility] [id number] [address]- 3636 Apr, [facility] [place] [facility] [id number] [place] [address] 80716- 5703 Apr, [facility] [place] [facility] [address], [place] [address]- 8668 Apr, [facility] [place] [facility] [id number] [place] [address] 70674- 9049 Apr, Cervical disc disease M50.90 [facility] [facility] [address], [place] [address]- 2446 Apr, [facility] [place] [facility] [id number] [place] [address] 25947- 1126 Apr, Neck pain M54.2 ; Hypertension I10 and Reactive depression F32.9 [facility] [facility] [id number] [place] [address] 17393- 0147 Mar, [facility] [place] [facility] [address] 89588- 2112 Mar, [facility] [place] [facility] [address] 87992- 4911 Mar, [facility] [place] [facility] [address] 47001- 6860 Feb, Sciatica M54.30 [place] [facility] [address] 50586- 3622 Feb, Paresthesias R20.2 ; Sciatica M54.30 and Reactive depression F32.9 [place] [facility] [address] 91803- 8871 Feb, [facility] [place] [facility] [address] 04128- 6348 January, [place] [address] 90047- 9415 January, Hyperlipemia, mixed E78.2 ; Other abnormalities of heart beat R00.8 and Anxiety F41.9 [place] [facility] [address] 46985- 7732 January, [facility] [place] [facility] [address] 89123- 3212 January, Low back pain M54.5 [place] [facility] [address] 83764- 1276 January, Anxiety disorder, unspecified F41.9 [facility] [facility] [id number] [place] [address] 03082- 5339 Dec, Ventricular bigeminy I49.9 [place] [facility] [address] 16586- 5329 Dec, [facility] [place] [facility] [id number] [place] [address] 33563- 8612 Dec, Low back pain M54.5 [facility] [place] [facility] [id number] [place] [address] 19038- 4365 Dec, Sciatica M54.30 [facility] [place] [facility] [address] 05807- 6241 Nov, Major depressive disorder, single episode, unspecified F32.9 [facility] [place] [facility] [id number] [place] [address] 16845- 8030 Nov, Sciatica M54.30 [facility] [place] [facility] [id number] [place] [address] 53712- 1734 Nov, [facility] [place] [facility] [address] 07425- 7454 Nov, [facility] [place] [facility] [id number] [place] [address] 71589- 0999 Nov, Anxiety disorder, unspecified F41.9 [facility] [place] [facility] [id number] [place] [address] 48525- 4927 Nov, [facility] [place] [facility] [id number] [place] [address] 32306- 1893 Nov, Depressed F32.9 and Anxiety F41.9 [facility] [place] [facility] [id number] [place] [address] 13048- 9285 Nov, Lumbago 724.2 ; Sciatica M54.30 and PVCs (premature ventricular contractions) I49.3 [facility] [place] [facility] [id number] [place] [address] 30309- 1073 Oct, [facility] [place] [facility] [id number] [place] [address] 86647- 9369 Oct, [facility] [place] [facility] [id number] [place] [address] 67744- 3565 Oct, Sciatica M54.30 and Hypertension I10 [facility] [place] [facility] [id number] [place] [address] 58518- 7930 Oct, [facility] [place] [facility] [id number] [place] [address] 28672- 8762 Oct, [facility] [place] [facility] [id number] [place] [address] 00787- 7690 Oct, [facility] [place] [facility] [id number] [place] [address] 11482- 2767 Sep, [facility] [place] [facility] [id number] [place] [address] 18468- 1898 Sep, [facility] [place] [facility] [id number] [place] [address] 59703- 8485 Sep, [facility] [place] [facility] [id number] [place] [address] 89923- 0284 Sep, Ventricular arrhythmia I49.9 [facility] [place] [facility] [id number] [place] [address] 58198- 2317 Sep, Ventricular bigeminy I49.9 and Hypertension I10 [facility] [place] [facility] [id number] [place] [address] 00931- 3357 Sep, Lumbago M54.5 and Ventricular bigeminy I49.9 [facility] [place] [facility] [id number] [place] [address] 54099- 9395 Sep, [facility] [place] [facility] [id number] [place] [address] 62352- 8801 Aug, [facility] [place] [facility] [id number] [place] [address] 40990- 8057 Aug, [facility] [place] [facility] [id number] [place] [address] 53954- 9474 Aug, [facility] [place] [facility] [id number] [place] [address] 70301- 1608 Aug, [facility] [place] [facility] [id number]- 5333 Aug, [facility] [place] [facility] [address], [place] [address]- 4597 Jul, [facility] [facility] [id number]- 7494 Jun, [facility] [place] [facility] [id number] [place] [address] 169563- 5380 May, [facility] [place] [facility] [address]- 1367 May, [facility] [place] [facility] [id number] [place] [address] 343840- 7577 May, Lumbago 724.2 and Depressive disorder, not elsewhere classified 311 [facility] [facility] [address], [place] [address]- 2972 Apr, UTI (urinary tract infection) 599.0 [facility] [facility] [id number] [address]- 0048 Apr, UTI (urinary tract infection) 599.0 and Depression 311 [facility] [facility] [address], [place] [address]- 1318 Mar, [facility] [facility] [id number] [address]- 7590 Mar, [facility] [facility] [id number], [place] [address]- 9169 Mar, [facility] [facility] [id number] [address]- 2375 Mar, Unspecified essential hypertension 401.9 ; Lumbago 724.2 and Anxiety 300.00 [facility] [place] [facility] [id number]- 7356 Mar, [facility] [place] [facility] [address], [place] [address]- 1274 Feb, [facility] [place] [facility] [address] [id number] [place] [address]- 2425 Feb, [facility] [place] [facility] [address] [id number] [place] [address]- 4370 January, [facility] [place] [facility] [address] [id number] [place] [address]- 8509 Dec, [facility] [place] [facility] [address] [id number] [place] [address]- 2841 Dec, [facility] [place] [facility] [address] [id number] [place] [address]- 5404 Oct, [facility] [place] [facility] [address] [id number] [place] [address]- 4508 Oct, [facility] [place] [facility] [address] [id number] [place] [address]- 6265 Oct, [facility] [place] [facility] [address] [id number] [place] [address]- 8317 Oct, [facility] [place] [facility] [address] [id number] [place] [address]- 8545 Sep, [facility] [place] [facility] [address] [facility] [id number] [place] [address]- 0123 Sep, [facility] [place] [facility] [address] [facility] [id number] [place] [address]- 4375 Sep, [facility] [place] [facility] [address] [id number] [place] [address]- 5562 Sep, [facility] [place] [facility] [address] [id number] [place] [address]- 6432 Aug, [facility] [place] [facility] [address] [id number] [place] 5482 Aug, [facility] [place] [facility] [address] [facility] [id number] [address]- 1035 Jul, [facility] [place] [facility] [address] [id number] [place] [address]- 8744 Jul, [facility] [place] [facility] [address] [id number] [place] [address]- 9897 Jun, [facility] [place] [facility] [address] [id number] [place] [address]- 8532 Jun, [facility] [place] [facility] [address] [id number] [place] [address]- 2925 Jun, [facility] [place] [facility] [address] [id number] [place] [address]- 6767 Jun, [facility] [place] [facility] [address] [id number] [place] [address]- 9970 Jun, [facility] [place] [facility] [address] [id number] [place] [address]- 3828 Jun, [facility] [place] [facility] [address] [id number] [place] [address]- 1918 May, [facility] [place] [facility] [address] [id number] [place] [address]- 2752 May, [facility] [place] [facility] [address] [id number] [place] [address]- 9458 Apr, [facility] [place] [facility] [address] [id number] [place] [address]- 4503 Apr, [facility] [place] [facility] [address] [id number] [place] [address]- 2845 Apr, [facility] [place] [facility] [address] [id number] [place] [address]- 7536 Apr, [facility] [place] [facility] [address] [id number] [place] [address]- 9016 Mar, [facility] [place] [facility] [address] [id number] [place] [address]- 6190 Mar, [facility] [place] [facility] [address] [id number] [place] [address]- 3558 Mar, [facility] [place] [facility] [address] [id number] [place] [address]- 4119 Mar, [facility] [place] [facility] [address] [id number] [place] [address]- 8473 Mar, [facility] [place] [facility] [address] [id number] [place] [address]- 5951 Mar, [facility] [place] [facility] [address] [id number] [place] [address]- 2239 Mar, [facility] [place] [facility] [address] [id number] [place] [address]- 4612 Mar, [facility] [place] [facility] [address] [id number] [place] [address]- 5442 Feb, [facility] [place] [facility] [address] [id number] [place] [address]- 8513 Feb, [facility] [place] [facility] [address] [id number] [place] [address]- 4877 January, [facility] [place] [facility] [address] [id number] [place] [address]- 1243 January, [facility] [place] [facility] [address] [id number] [place] [address]- 2216 January, [facility] [place] [facility] [address] [id number] [place] [address] January, [facility] [place] [facility] [address] [id number] [place] [address] Dec, [facility] [place] [facility] [address] [id number] [place] [address] Dec, [facility] [place] [facility] [address] [id number] [place] [address] Dec, [facility] [place] [facility] [address] [id number] [place] [address] Dec, [facility] [place] [facility] [address] [id number] [place] [address] 13 Nov, 2013 [facility] [address] [id number] [place] [address] 13 Nov, 2013 [facility] [address] [id number] [place] [address] Sep, [facility] [address] [id number] [place] [address] Sep, [facility] [address] [id number] [place] [address] Sep, [facility] [address] [id number] [place] [address] Sep, [facility] [address] [id number] [place] [address] Sep, [facility] [address] [id number] [place] [address] Sep, [facility] [address] [id number] [place] [address] Aug, [facility] [address] [id number] [place] [address] Aug, [facility] [address] [id number] [place] [address] Aug, [facility] [address] [id number] [place] [address] Aug, [facility] [address] [id number] [place] [address] Jul, [facility] [place] [facility] [address] [id number] [place] [address] Jul, [facility] [place] [facility] [address] [id number] [place] [address] Jun, [facility] [address] [id number] [place] [address] Jun, [facility] [place] [facility] [address] [id number] [address] Mar, [facility] [place] [facility] [address] [id number] [address] January, [facility] [place] [facility] [address] [id number] [address] Dec, [facility] [place] [facility] [id number] [place] [address] Dec, [facility] [place] [facility] [id number], [place] [address] Nov, [facility] [place] [facility] [id number], [place] [address] Nov, [facility] [place] [facility] [id number], [place] [address] Oct, [facility] [place] [facility] [id number], [place] [address] January, [facility] [place] [facility] [id number], [place] [address] Dec, [facility] [place] [facility] [address] [id number], [place] [address] Sep, IMMUNIZATIONS No Known Immunizations SOCIAL HISTORY Never Assessed REASON FOR VISIT Controlled Med Refill 08/06 PLAN OF CARE VITAL SIGNS MEDICATIONS Medication Instructions Dosage Frequency Start Date End Date Duration Status Diazepam 5MG Orally, each fill must last 30 days Twice a day 1 tablet as needed 12h 28 days Active RESULTS No Results PROCEDURES [...]
--- OUTSIDE RECORDS SUMMARY | 2018-08-12 07:05 | XMS REPORT ---
Author Author JOHANNY KINNEY Organization [facility] Address [address] [place] [address] Care Team Providers Care Bus Escort Name Role Phone JOHANNY KINNEY Unavailable PROBLEMS Type Condition ICD9-CM Code ZUH89-WX Code Onset Dates Condition Status SNOMED Code Problem Cervical disc disease M50.90 Active 220653553 Problem Anxiety disorder, unspecified F41.9 Active 947578773 Problem Gastroesophageal reflux disease, esophagitis presence not specified K21.9 Active 751701027 Problem Pulmonary emphysema, unspecified emphysema type J43.9 Active 94672393 Problem Chronic maxillary sinusitis J32.0 Active 00715420 Problem Prediabetes R73.03 Active 121562481 Problem Mixed hyperlipidemia E78.2 Active 408674469 Problem Right maxillary sinusitis J32.0 Active 12347246 Problem Sinusitis chronic, frontal J32.1 Active 82845940 Problem Hypertension I10 Active 40328116 Problem Reactive depression F32.9 Active 63230788 Problem Lumbago with sciatica, right side M54.41 Active 853744059 Problem Sciatica M54.30 Active 56525642 Problem Other chronic pain G89.29 Active 39842371 Problem PVCs (premature ventricular contractions) I49.3 Active 84910531 Problem Neck pain M54.2 Active [id number] ALLERGIES No Information ENCOUNTERS Encounter Location Date Diagnosis [facility] [address] [address] Jul, Low back pain M54.5 [facility] [id number] [place] [address] 78985- 2116 Jun, Low back pain M54.5 [facility] [address] [address] 3[address] Jun, Low back pain M54.5 [facility] [id number] [place] [address] 92926- 1977 04 Jun, 2018 Low back pain M54.5 [facility] [id number] [place] [address] 77508- 2968 24 May, 2018 Elevated glucose R73.09 [facility] [id number] [place] [address] 00045- 7575 18 May, 2018 Elevated glucose R73.09 [facility] [id number] [place] [address] 21944- 1794 11 May, 2018 Screening for breast cancer Z12.31 ; Well woman exam Z01.419 and Hypertension I10 [facility] [id number] [place] [address] 01970- 7856 10 May, 2018 Low back pain M54.5 [facility] [id number] [place] [address] 42407- 6507 05 May, 2018 Low back pain M54.5 [facility] [id number] [place] [address] 26281- 1091 Apr, [facility] [id number] [place] [address] 27825- 4848 Apr, [facility] [id number] [place] [address] 93305- 0256 Apr, Lumbago with sciatica, right side M54.41 ; Right maxillary sinusitis J32.0 ; Pulmonary emphysema, unspecified emphysema type J43.9 ; Hypertension I10 and Reactive depression F32.9 [facility] [id number] [place] [address] 42507- 0169 Apr, [facility] [id number] [place] [address] 73396- 5989 Apr, Low back pain M54.5 [facility] [id number] [place] [address] 73188- 4935 Apr, Low back pain M54.5 [facility] [address] [place] [address] 3213 Mar, Gastroesophageal reflux disease, esophagitis presence not specified K21.9 and Low back pain M54.5 [facility] [id number] [place] [address] 95428 -7352 Feb, Chronic maxillary sinusitis J32.0 [facility] [address] 52370- 6371 Feb, Low back pain M54.5 [facility] [address] 51609- 7469 Feb, Low back pain M54.5 [facility] [address] 31124- 9212 Feb, Low back pain M54.5 [facility] [address] 90040- 8936 January, [facility] [address] 27479- 8749 January, Sinusitis chronic, frontal J32.1 [facility] [address] 51280- 8648 January, Lumbago with sciatica, right side M54.41 ; Cervical disc disease M50.90 ; Hypertension I10 and Gastroesophageal reflux disease, esophagitis presence not specified K21.9 [facility] [id number] [place] [address] 18535- 2996 Dec, Low back pain M54.5 [facility] [id number] [place] [address] 03130- 8726 Dec, Low back pain M54.5 [facility] [address] 00800- 3267 Nov, [facility] [id number] [place] [address] 68929 -6834 Nov, Right maxillary sinusitis J32.0 [facility] [id number] [place] [address] 29153- 2698 15 Nov, 2017 Low back pain M54.5 [facility] [address] 34546 -0962 Oct, Sinusitis chronic, frontal J32.1 [facility] [id number] [place] [address] 45732- 8606 Oct, Neck pain M54.2 [facility] [address] 62190- 1755 Sep, Low back pain M54.5 [facility] [address] 82333- 3119 Sep, Neck pain M54.2 [facility] [address] 20548- 4713 Sep, Lumbago with sciatica, right side M54.41 ; Hypertension I10 ; Bronchitis J40 and Anxiety disorder, unspecified F41.9 [facility] [address] 63679- 2305 Aug, Neck pain M54.2 and Low back pain M54.5 [facility] [id number] [place] [address] 55359- 1589 16 Jul, 2017 Neck pain M54.2 and Low back pain M54.5 [facility] [id number] [place] [address] 96368- 1646 Jul, Neck pain M54.2 [facility] [id number] [place] [address] 95686- 2859 Jun, Low back pain M54.5 and Neck pain M54.2 [facility] [id number] [place] [address] 12158- 2382 May, Low back pain M54.5 and Neck pain M54.2 [facility] [address] 97333- 9098 May, [facility] [id number] [place] [address] 49688 -4858 14 May, 2017 Bronchitis J40 [facility] [id number] [place] [address] 12016- 0752 11 Apr, 2017 Hyperglycemia R73.9 [facility] [id number] [place] [address] 59840- 0159 08 Apr, 2017 Hyperglycemia R73.9 [facility] [address] 31571- 7954 07 Apr, 2017 Gastroesophageal reflux disease, esophagitis presence not specified K21.9 ; Mixed hyperlipidemia E78.2 ; Neck pain M54.2 and PVCs ( premature ventricular contractions) I49.3 [facility] [address] 47417- 4776 Mar, Low back pain M54.5 [facility] [address] 91258- 9092 Feb, Low back pain M54.5 and Gastroesophageal reflux disease, esophagitis presence not specified K21.9 [facility] [id number] [place] [address] 09970- 3538 January, Dyspnea on exertion R06.09 [facility] [id number] [place] [address] 54867- 1957 January, Hypertension I10 [facility] [id number] [place] [address] 72366- 6492 January, [facility] [id number] [place] [address] 77026- 6547 January, Low back pain M54.5 [facility] [id number] [place] [address] 21435- 1897 January, Low back pain M54.5 [facility] [id number] [place] [address] 23646- 3765 January, Gastroesophageal reflux disease, esophagitis presence not specified K21.9 ; Lumbago with sciatica, right side M54.41 and Dyspnea on exertion R06.09 [facility] [address] 70802- 9441 30 Nov, 2016 [facility] [id number] [place] [address] 40064- 5732 Nov, [facility] [address] 66129- 5690 Nov, Gastroesophageal reflux disease, esophagitis presence not specified K21.9 and Bronchitis J40 [facility] [address] 861627- 6512 15 Oct, 2016 Low back pain M54.5 and Anxiety disorder, unspecified F41.9 [facility] [address] 14588- 3227 10 Oct, 2016 Bronchitis J40 ; Hypertension I10 ; Sciatica M54.30 and Paresthesias R20.2 [facility] [id number] [place] [address] [id number] Sep, Dental examination Z01.20 [facility] [address] [id number] Sep, Dental examination Z01.20 and Dental caries K02.9 [facility] [id number] [place] [address] 96591- 0684 Aug, [facility] [id number] [place] [address] 01512- 7752 17 Jul, 2016 Low back pain M54.5 and Anxiety disorder, unspecified F41.9 [facility] [address] 17515- 4416 Jul, [facility] [id number] [place] [address] 27956- 9077 31 Jun, 2016 Lumbago with sciatica, right side M54.41 ; Cervical disc disease M50.90 and Gastroesophageal reflux disease, esophagitis presence not specified K21.9 [facility] [address] [address]- 3069 Jun, [facility] [id number] [place] [address] 50614- 9223 Jun, [facility] [id number] [place] [address] 62144- 9010 Jun, [facility] [id number] [place] [address] 23557- 1567 Jun, [facility] [id number] [place] [address] 45812- 3632 Jun, [facility] [id number] [place] [address] 61554- 0442 May, [facility] [id number] [place] [address] 14480- 2170 May, [facility] [id number] [place] [address] 30971- 5693 May, [facility] [id number] [place] [address] 07244- 5541 Apr, [facility] [id number] [place] [address] 37857- 8511 Apr, [facility] [id number] [place] [address] 50067- 2926 Apr, [facility] [id number] [place] [address] 22240- 1235 Apr, Cervical disc disease M50.90 [facility] [id number] [place] [address] 80864- 8737 Apr, [facility] [id number] [place] [address] 71572- 1977 Apr, Neck pain M54.2 ; Hypertension I10 and Reactive depression F32.9 [facility] [id number] [place] [address] 75690- 0523 Mar, [facility] [id number] [place] [address] 32897- 8211 Mar, [facility] [id number] [place] [address] 58077- 4324 Mar, [facility] [id number] [place] [address] 72912- 7174 Feb, Sciatica M54.30 [facility] [id number] [place] [address] 31793- 5082 Feb, Paresthesias R20.2 ; Sciatica M54.30 and Reactive depression F32.9 [facility] [id number] [place] [address] 77182- 1698 Feb, [facility] [id number] [place] [address] 48689- 6892 January, [facility] [id number] [place] [address] 52053- 0921 January, Hyperlipemia, mixed E78.2 ; Other abnormalities of heart beat R00.8 and Anxiety F41.9 [facility] [id number] [place] [address] 86123- 6073 January, [facility] [id number] [place] [address] 71460- 4361 January, Low back pain M54.5 [facility] [id number] [place] [address] 78803- 9567 January, Anxiety disorder, unspecified F41.9 [facility] [id number] [place] [address] 41293- 2000 Dec, Ventricular bigeminy I49.9 [facility] [id number] [place] [address] 75424- 9374 Dec, [facility] [id number] [place] [address] 88141- 5314 Dec, Low back pain M54.5 [facility] [id number] [place] [address] 18853- 0210 Dec, Sciatica M54.30 [facility] [id number] [place] [address] 87640- 0327 Nov, Major depressive disorder, single episode, unspecified F32.9 [facility] [address] 36699- 1748 Nov, Sciatica M54.30 [facility] [id number] [place] [address] 94862- 6100 Nov, [facility] [id number] [place] [address] 01534- 3709 Nov, [facility] [id number] [place] [address] 88260- 0616 Nov, Anxiety disorder, unspecified F41.9 [facility] [id number] [place] [address] 86520- 2159 Nov, [facility] [id number] [place] [address] 83218- 7965 Nov, Depressed F32.9 and Anxiety F41.9 [facility] [id number] [place] [address] 57681- 7865 Nov, Lumbago 724.2 ; Sciatica M54.30 and PVCs (premature ventricular contractions) I49.3 [facility] [id number] [place] [address] 68183- 3238 Oct, [facility] [address] 66156- 0084 Oct, [facility] [id number] [place] [address] 75358- 2343 Oct, Sciatica M54.30 and Hypertension I10 [facility] [id number] [place] [address] 67018- 1019 Oct, [facility] [id number] [place] [address]- 2580 Oct, [facility] [address] [address]- 3645 Oct, [facility] [address] [address]- 8980 Sep, [facility] [id number] [place] [address] 73909- 2086 Sep, [facility] [address] [place] [address] 36667- 0037 Sep, [facility] [address] [place] [address] 02960- 9655 Sep, Ventricular arrhythmia I49.9 [facility] [address] [place] [address] 68945- 4249 Sep, Ventricular bigeminy I49.9 and Hypertension I10 [facility] [address] [place] [address] 35341- 8721 Sep, Lumbago M54.5 and Ventricular bigeminy I49.9 [facility] [address] [address]- 8467 Sep, [facility] [address] [address]- 9527 Aug, [facility] [address] [address]- 1084 Aug, [facility] [address] [address]- 5051 Aug, [facility] [address] [address]- 8027 Aug, [facility] [address] [address]- 1307 Aug, [facility] [address] [address]- 6087 Jul, [facility] [address] [address]- 8568 Jun, [facility] [address] [address]- 5129 May, [facility] [id number] [place] [address] 69575- 7092 May, [facility] [address] [address]- 6939 May, Lumbago 724.2 and Depressive disorder, not elsewhere classified 311 [facility] [address] 3150 Apr, UTI (urinary tract infection) 599.0 [facility] [id number] [place] [address] 686719- 1446 Apr, UTI (urinary tract infection) 599.0 and Depression 311 [facility] [address] [address]- 7633 Mar, [facility] [address] [address]- 2698 Mar, [facility] [address] [address]- 9626 Mar, [facility] [address] [address]- 5968 Mar, Unspecified essential hypertension 401.9 ; Lumbago 724.2 and Anxiety 300.00 [facility] [address] [address]- 3193 Mar, [facility] [address] [address]- 4716 Feb, [facility] [id number] [place] [address] 26484- 9007 Feb, [facility] [place] [facility] [address] [id number] [place] [address]- 4043 January, [facility] [place] [facility] [address] [id number] [place] [address]- 6994 Dec, [facility] [place] [facility] [address] [id number] [place] [address]- 5688 Dec, [facility] [place] [facility] [address] [id number] [place] [address]- 9990 Oct, [facility] [place] [facility] [address] [id number] [place] [address]- 9859 Oct, [facility] [place] [facility] [address] [id number] [place] [address]- 3610 Oct, [facility] [place] [facility] [address] [id number] [place] [address]- 4365 Oct, [facility] [place] [facility] [address] [id number] [place] [address]- 3870 Sep, [facility] [place] [facility] [address] [id number] [place] [address]- 8607 Sep, [facility] [place] [facility] [address] [id number] [place] [address]- 2627 Sep, [facility] [place] [facility] [address] [id number] [place] [address]- 9638 Sep, [facility] [place] [facility] [address] [id number] [place] [address]- 6729 Aug, [facility] [place] [facility] [address] [id number] [place] [address]- 7172 Aug, [facility] [place] [facility] [address] [id number] [place] [address]- 1972 Jul, [facility] [place] [facility] [address] [id number] [place] [address]- 1376 Jul, [facility] [place] [facility] [address] [id number] [place] [address]- 6867 Jun, [facility] [place] [facility] [address] [id number] [place] [address]- 1298 Jun, [facility] [place] [facility] [address] [id number] [place] [address]- 8056 Jun, [facility] [place] [facility] [address] [id number] [place] [address]- 9370 Jun, [facility] [place] [facility] [address] [id number] [place] [address]- 5995 Jun, [facility] [place] [facility] [address] [id number] [place] [address]- 0350 Jun, [facility] [place] [facility] [address] [id number] [place] [address]- 0958 May, [facility] [place] [facility] [address] [id number] [place] [address]- 0114 May, [facility] [place] [facility] [address] [id number] [place] [address]- 8536 Apr, [facility] [place] [facility] [address] [id number] [place] [address]- 4328 Apr, [facility] [place] [facility] [address] [id number] [place] [address]- 1811 Apr, [facility] [place] [facility] [address] [id number] [place] [address]- 0403 Apr, [facility] [place] [facility] [address] [id number] [place] [address]- 2393 Mar, [facility] [place] [facility] [address] [id number] [place] [address]- 8260 Mar, [facility] [place] [facility] [address] [id number] [place] [address]- 3805 Mar, [facility] [place] [facility] [address] [id number] [place] [address]- 7807 Mar, [facility] [place] [facility] [address] [id number] [place] [address]- 8200 Mar, [facility] [place] [facility] [address] [id number] [place] [address]- 7242 Mar, [facility] [place] [facility] [address] [id number] [place] [address]- 4558 Mar, [facility] [place] [facility] [address] [id number] [place] [address]- 1764 Mar, [facility] [place] [facility] [address] [id number] [place] [address]- 1553 Feb, [facility] [place] [facility] [address] [id number] [place] [address]- 2234 Feb, [facility] [place] [facility] [address] [id number] [place] [address] January, [facility] [place] [facility] [address] [id number] [place] [address] January, [facility] [place] [facility] [address] [id number] [place] [address] January, [facility] [place] [facility] [address] [id number] [place] [address] January, [facility] [place] [facility] [address] [id number] [place] [address] Dec, [facility] [place] [facility] [address] [id number] [place] [address] Dec, [facility] [place] [facility] [address] [id number] [place] [address] Dec, [facility] [place] [facility] [address] [id number] [place] [address] Dec, [facility] [place] [facility] [address] [id number] [place] [address] Nov, [facility] [place] [facility] [address] [id number] [address] Nov, [facility] [place] [facility] [address] [id number] [place] [address] Sep, [facility] [place] [facility] [address] [id number] [place] [address] Sep, [facility] [place] [facility] [address] [id number] [place] [address] Sep, [facility] [place] [facility] [address] [id number] [place] [address] Sep, [facility] [place] [facility] [address] [id number] [place] [address] Sep, [facility] [place] [facility] [address] [id number] [place] [address] Sep, [facility] [place] [facility] [address] [id number] [place] [address] Aug, [facility] [place] [facility] [address] [id number] [place] [address] Aug, [facility] [place] [facility] [address] [id number] [place] [address] Aug, [facility] [place] [facility] [address] [id number] [place] [address] Aug, [facility] [place] [facility] [address] [id number] [place] [address] Jul, [facility] [place] [facility] [address] [id number] [place] [address] Jul, [facility] [place] [facility] [address] [id number] [place] [address] Jun, [facility] [place] [facility] [address] [id number] [place] [address] Jun, [facility] [place] [facility] [address] [id number] [place] [address] Mar, [facility] [place] [facility] [address] [id number] [address] January, [facility] [address] [id number] [address] Dec, [facility] [address] [id number] [address] Dec, [facility] [address] [id number] [address] Nov, [facility] [id number] [address] Nov, [facility] [id number] [address] Oct, [facility] [id number] [address] January, [facility] [id number] [address] Dec, [facility] [address] [facility] [id number] [address] Sep, IMMUNIZATIONS No Known Immunizations SOCIAL HISTORY Never Assessed REASON FOR VISIT Controlled Med Refill 07/13 PLAN OF CARE VITAL SIGNS MEDICATIONS Medication [...]
--- OUTSIDE RECORDS SUMMARY | 2018-08-12 07:06 | XMS REPORT ---
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 Name Role Phone JOHANNY KINNEY Unavailable PROBLEMS Type Condition ICD9-CM Code [id number] Code Onset Dates Condition Status SNOMED Code Problem Cervical disc disease M50.90 Active 712018613 Problem Anxiety disorder, unspecified F41.9 Active 276897995 Problem Gastroesophageal reflux disease, esophagitis presence not specified K21.9 Active 162908976 Problem Pulmonary emphysema, unspecified emphysema type J43.9 Active 54413001 Problem Chronic maxillary sinusitis J32.0 Active 89778835 Problem Prediabetes R73.03 Active 253421716 Problem Mixed hyperlipidemia E78.2 Active 355817886 Problem Right maxillary sinusitis J32.0 Active 45727621 Problem Sinusitis chronic, frontal J32.1 Active 69549951 Problem Hypertension I10 Active 43098709 Problem Reactive depression F32.9 Active 40030940 Problem Lumbago with sciatica, right side M54.41 Active 630267339 Problem Sciatica M54.30 Active 12040049 Problem Other chronic pain G89.29 Active 98946934 Problem PVCs (premature ventricular contractions) I49.3 Active 21790153 Problem Neck pain M54.2 Active 82335333 ALLERGIES No Information ENCOUNTERS Encounter Location Date Diagnosis [facility] [id number] [address] Jun, Low back pain M54.5 [facility] [id number] [place] [address] 74686- 4995 Jun, Low back pain M54.5 [facility] [id number] [address] 0037 Jun, Low back pain M54.5 [facility] [id number] [place] [address] 18755- 9916 24 May, 2018 Elevated glucose R73.09 [place] [address] 32503- 2741 18 May, 2018 Elevated glucose R73.09 [facility] [id number] [place] [address] 12398- 1991 11 May, 2018 Screening for breast cancer Z12.31 ; Well woman exam Z01.419 and Hypertension I10 [place] [address] 64980- 3860 10 May, 2018 Low back pain M54.5 [place] [address] 12047- 2415 05 May, 2018 Low back pain M54.5 [place] [address] 88076- 6037 Apr, [place] [address] 56561- 0984 Apr, [facility] [id number] [place] [address] 80301- 2400 Apr, Lumbago with sciatica, right side M54.41 ; Right maxillary sinusitis J32.0 ; Pulmonary emphysema, unspecified emphysema type J43.9 ; Hypertension I10 and Reactive depression F32.9 [place] [address] 74029- 1191 Apr, [facility] [id number] [place] [address] 06080- 7923 Apr, Low back pain M54.5 [facility] [facility] [address] 16741- 5569 Apr, Low back pain M54.5 [facility] [id number] [place] [address] 31228- 5754 Mar, Gastroesophageal reflux disease, esophagitis presence not specified K21.9 and Low back pain M54.5 [facility] [id number] [place] [address] 59629 -6021 Feb, Chronic maxillary sinusitis J32.0 [facility] [id number] [place] [address] 56736- 2446 Feb, Low back pain M54.5 [facility] [id number] [place] [address] 95433- 4447 Feb, Low back pain M54.5 [facility] [id number] [place] [address] 10509- 0731 Feb, Low back pain M54.5 [facility] [address] 22115- 4383 January, [facility] [id number] [place] [address] 96080- 9694 January, Sinusitis chronic, frontal J32.1 [facility] [address] 32961- 6137 January, Lumbago with sciatica, right side M54.41 ; Cervical disc disease M50.90 ; Hypertension I10 and Gastroesophageal reflux disease, esophagitis presence not specified K21.9 [facility] [id number] [place] [address] 16599- 1563 Dec, Low back pain M54.5 [facility] [id number] [place] [address] 19073- 6077 Dec, Low back pain M54.5 [facility] [id number] [place] [address] 39056- 7698 Nov, [facility] [id number] [place] [address] 08612 -0808 Nov, Right maxillary sinusitis J32.0 [facility] [id number] [place] [address] 02029- 4278 Nov, Low back pain M54.5 [facility] [id number] [place] [address] 08549 -5242 Oct, Sinusitis chronic, frontal J32.1 [facility] [address] 00732- 4331 Oct, Neck pain M54.2 [facility] [address] 53543- 8947 Sep, Low back pain M54.5 [facility] [address] 46951- 9617 Sep, Neck pain M54.2 [place] [address] 89104- 8667 Sep, Lumbago with sciatica, right side M54.41 ; Hypertension I10 ; Bronchitis J40 and Anxiety disorder, unspecified F41.9 [place] [address] 07177- 8310 Aug, Neck pain M54.2 and Low back pain M54.5 [place] [address] 36148- 6525 16 Jul, 2017 Neck pain M54.2 and Low back pain M54.5 [place] [address] 78661- 1388 Jul, Neck pain M54.2 [facility] [address] 91575- 5018 Jun, Low back pain M54.5 and Neck pain M54.2 [facility] [address] 80648- 8027 22 May, 2017 Low back pain M54.5 and Neck pain M54.2 [facility] [id number] [place] [address] 95133- 2928 21 May, 2017 [facility] [address] 52083 -0171 14 May, 2017 Bronchitis J40 [facility] [id number] [place] [address] 06586- 9257 11 Apr, 2017 Hyperglycemia R73.9 [facility] [address] 26402- 1311 08 Apr, 2017 Hyperglycemia R73.9 [facility] [address] 91141- 8606 Apr, Gastroesophageal reflux disease, esophagitis presence not specified K21.9 ; Mixed hyperlipidemia E78.2 ; Neck pain M54.2 and PVCs ( premature ventricular contractions) I49.3 [place] [address] 42800- 5308 Mar, Low back pain M54.5 [place] [address] 54763- 7811 Feb, Low back pain M54.5 and Gastroesophageal reflux disease, esophagitis presence not specified K21.9 [facility] [id number] [place] [address] 22115- 0199 January, Dyspnea on exertion R06.09 [place] [address] 13396- 7414 January, Hypertension I10 [facility] [facility] [id number] [place] [address] 59800- 7168 January, [facility] [id number] [place] [address] 94872- 2056 January, Low back pain M54.5 [facility] [id number] [place] [address] 88918- 0164 January, Low back pain M54.5 [facility] [id number] [place] [address] 55398- 9428 January, Gastroesophageal reflux disease, esophagitis presence not specified K21.9 ; Lumbago with sciatica, right side M54.41 and Dyspnea on exertion R06.09 [facility] [id number] [place] [address] 27014- 5673 30 Nov, 2016 [facility] [address] 80209- 2072 Nov, [facility] [address] 32198- 3611 Nov, Gastroesophageal reflux disease, esophagitis presence not specified K21.9 and Bronchitis J40 [place] [address] 36811- 3947 15 Oct, 2016 Low back pain M54.5 and Anxiety disorder, unspecified F41.9 [place] [address] 29135- 9907 10 Oct, 2016 Bronchitis J40 ; Hypertension I10 ; Sciatica M54.30 and Paresthesias R20.2 [facility] [address] [id number] Sep, Dental examination Z01.20 [facility] [address] [id number] Sep, Dental examination Z01.20 and Dental caries K02.9 [facility] [facility] [id number] [place] [address] 27178- 0784 Aug, [facility] [id number] [place] [address] 58268- 0672 Jul, Low back pain M54.5 and Anxiety disorder, unspecified F41.9 [facility] [facility] [id number] [place] [address] 79947- 7030 Jul, [place] [address] 14943- 4570 31 Jun, 2016 Lumbago with sciatica, right side M54.41 ; Cervical disc disease M50.90 and Gastroesophageal reflux disease, esophagitis presence not specified K21.9 [place] [address] 63083- 0187 Jun, [facility] [address] [address]- 9224 Jun, [facility] [id number] [place] [address], [place] [address]- 1624 Jun, [facility] [address] [address]- 9800 Jun, [facility] [id number] [place] [address], [place] [address]- 8238 Jun, [facility] [address] [facility] [id number] [place] [address]- 1860 May, [facility] [id number] [place] [address], [place] [address]- 3410 May, [facility] [id number] [place] [address], [place] [address]- 2684 May, [facility] [id number] [place] [address], [place] [address]- 1410 Apr, [facility] [id number] [address]- 2657 Apr, [facility] [id number] [address]- 8956 Apr, [facility] [address], [place] [address]- 7785 Apr, Cervical disc disease M50.90 [facility] [address], [place] [address]- 5460 Apr, [facility] [id number], [place] [address]- 9020 Apr, Neck pain M54.2 ; Hypertension I10 and Reactive depression F32.9 [facility] [address], [place] [address]- 4627 Mar, [facility] [id number] [address]- 6304 15 Mar, 2016 [facility] [id number] [place] [address] 10699- 8512 Mar, [facility] [id number] [place] [address] 22341- 9452 Feb, Sciatica M54.30 [facility] [id number] [place] [address] 24917- 2697 Feb, Paresthesias R20.2 ; Sciatica M54.30 and Reactive depression F32.9 [facility] [id number] [place] [address] 19083- 8918 Feb, [facility] [id number] [place] [address] 66120- 6019 January, [facility] [id number] [place] [address] 12711- 0252 January, Hyperlipemia, mixed E78.2 ; Other abnormalities of heart beat R00.8 and Anxiety F41.9 [facility] [id number] [place] [address] 44994- 0352 January, [facility] [id number] [place] [address] 90931- 3545 January, Low back pain M54.5 [facility] [id number] [place] [address] 07450- 0698 January, Anxiety disorder, unspecified F41.9 [facility] [id number] [place] [address] 23555- 9605 Dec, Ventricular bigeminy I49.9 [facility] [id number] [place] [address] 04442- 2394 Dec, [facility] [id number] [place] [address] 14908- 9288 Dec, Low back pain M54.5 [facility] [id number] [place] [address] 74648- 2782 Dec, Sciatica M54.30 [facility] [id number] [place] [address] 87278- 5613 Nov, Major depressive disorder, single episode, unspecified F32.9 [facility] [id number] [place] [address] 35964- 5790 Nov, Sciatica M54.30 [facility] [address] 47952- 8354 Nov, [facility] [id number] [place] [address] 51052- 1000 Nov, [facility] [id number] [place] [address] 77744- 6514 Nov, Anxiety disorder, unspecified F41.9 [facility] [facility] [id number] [place] [address] 44130- 2993 Nov, [facility] [id number] [place] [address] 18257- 2240 Nov, Depressed F32.9 and Anxiety F41.9 [facility] [facility] [id number] [place] [address] 11742- 8665 Nov, Lumbago 724.2 ; Sciatica M54.30 and PVCs (premature ventricular contractions) I49.3 [facility] [id number] [place] [address] 41492- 9107 Oct, [facility] [id number] [place] [address] 22005- 6115 Oct, [facility] [id number] [place] [address] 62350- 1312 Oct, Sciatica M54.30 and Hypertension I10 [facility] [id number] [place] [address] 45029- 1129 Oct, [facility] [id number] [place] [address] 37731- 3615 Oct, [facility] [address] [address]- 5564 Oct, [facility] [id number] [place] [address] 39825- 9182 Sep, [facility] [id number] [place] [address] 12395- 1310 Sep, [facility] [id number] [place] [address] 01650- 7950 Sep, [facility] [id number] [place] [address] 15223- 6551 Sep, Ventricular arrhythmia I49.9 [facility] [id number] [place] [address] 76769- 1964 Sep, Ventricular bigeminy I49.9 and Hypertension I10 [facility] [id number] [place] [address] 57341- 9246 Sep, Lumbago M54.5 and Ventricular bigeminy I49.9 [facility] [id number] [place] [address] 26572- 2138 Sep, [facility] [id number] [place] [address] 51902- 2476 Aug, [facility] [address], [place] [address]- 6374 Aug, [facility] [address] [address]- 9612 Aug, [facility] [id number] [place] [address] 34254- 5633 Aug, [facility] [address] [address]- 0263 Aug, [facility] [address] [address]- 7523 Jul, [facility] [address] [facility] [id number] [address]- 5509 Jun, [facility] [address] [facility] [id number] [address]- 9260 May, [facility] [address] [facility] [id number] [address]- 6982 May, [facility] [id number] 2814 May, Lumbago 724.2 and Depressive disorder, not elsewhere classified 311 [facility] [address] [facility] [id number], [place] [address]- 2295 Apr, UTI (urinary tract infection) 599.0 [facility] [address] [facility] [id number] [address]- 5010 Apr, UTI (urinary tract infection) 599.0 and Depression 311 [facility] [id number] [address]- 1629 Mar, [facility] [id number] [address]- 2872 Mar, [facility] [id number] [address]- 0418 Mar, [facility] [id number] [address]- 6712 Mar, Unspecified essential hypertension 401.9 ; Lumbago 724.2 and Anxiety 300.00 [facility] [address] [facility] [id number] [address]- 2991 Mar, [facility] [address] [facility] [id number][place] [address]- 0049 Feb, [facility] [address] [facility] [id number], [place] [address]- 8159 Feb, [facility] [id number] [address]- 7912 January, [facility] [place] [facility] [address] [id number] [place] [address]- 6171 Dec, [facility] [place] [facility] [address] [id number] [place] [address]- 8278 Dec, [facility] [place] [facility] [address] [id number] [place] [address]- 9048 Oct, [facility] [place] [facility] [address] [id number] [place] [address]- 4350 Oct, [facility] [place] [facility] [address] [id number] [place] [address]- 3236 Oct, [facility] [place] [facility] [address] [id number] [place] [address]- 6661 Oct, [facility] [place] [facility] [address] [id number] [place] [address]- 3101 Sep, [facility] [place] [facility] [address] [id number] [place] [address]- 8356 Sep, [facility] [place] [facility] [address] [id number] [place] [address]- 7580 Sep, [facility] [place] [facility] [address] [id number] [place] [address]- 9993 Sep, [facility] [place] [facility] [address] [id number], [place] [address]- 7650 Aug, [facility] [place] [facility] [address] [id number] [address]- 1527 Aug, [facility] [place] [facility] [address] [id number] [place] [address]- 4563 Jul, [facility] [place] [facility] [address] [id number] [place] [address]- 4048 Jul, [facility] [place] [facility] [address] [id number] [place] [address]- 4860 Jun, [facility] [place] [facility] [address] [id number], [place] [address]- 2791 Jun, [facility] [place] [facility] [address] [id number] [place] [address]- 0858 Jun, [facility] [place] [facility] [address] [id number] [place] [address]- 0262 Jun, [facility] [place] [facility] [address] [id number] [place] [address]- 8337 Jun, [facility] [place] [facility] [address] [id number] [place] [address]- 4622 Jun, [facility] [place] [facility] [address] [id number] [place] [address]- 3989 May, [facility] [place] [facility] [address] [id number] [place] [address]- 4539 May, [facility] [place] [facility] [address] [id number] [place] [address]- 5589 Apr, [facility] [place] [facility] [address] [id number] [place] [address]- 4726 Apr, [facility] [place] [facility] [address] [id number] [place] [address]- 7249 Apr, [facility] [place] [facility] [address] [id number] [place] [address]- 4032 Apr, [facility] [place] [facility] [address] [id number] [place] [address]- 2869 Mar, [facility] [place] [facility] [address] [id number] [place] [address]- 7822 Mar, [facility] [place] [facility] [address] [id number] [place] [address]- 9140 Mar, [facility] [place] [facility] [address] [id number] [place] [address]- 1963 Mar, [facility] [place] [facility] [address] [id number] [place] [address]- 4421 Mar, [facility] [place] [facility] [address] [id number] [place] [address]- 4964 Mar, [facility] [place] [facility] [address] [id number] [place] [address]- 5286 Mar, [facility] [place] [facility] [address] [id number] [place] [address]- 5316 Mar, [facility] [place] [facility] [address] [id number] [place] [address]- 8905 Feb, [facility] [place] [facility] [address] [id number] [place] [address] Feb, [facility] [place] [facility] [address] [id number] [place] [address] January, [facility] [place] [facility] [address] [id number] [place] [address] January, [facility] [place] [facility] [address] [id number] [place] [address] January, [facility] [place] [facility] [address] [id number] [place] [address] January, [facility] [place] [facility] [address] [id number] [place] [address] Dec, [facility] [place] [facility] [address] [id number] [place] [address] Dec, [facility] [place] [facility] [address] [id number] [place] [address] Dec, [facility] [place] [facility] [address] [id number] [place] [address] Dec, [facility] [place] [facility] [address] [id number] [place] [address] Nov, [facility] [place] [facility] [address] [id number] [place] [address] Nov, [facility] [place] [facility] [address] [id number] [place] [address] Sep, [facility] [address] [id number] [place] [address] Sep, [facility] [place] [facility] [address] [id number] [place] [address] Sep, [facility] [place] [facility] [address] [id number] [place] [address] Sep, [facility] [place] [facility] [address] [id number] [place] [address] Sep, [facility] [place] [facility] [address] [id number] [place] [address] Sep, [facility] [place] [facility] [address] [id number] [place] [address] Aug, [facility] [place] [facility] [address] [id number] [place] [address] Aug, [facility] [place] [facility] [address] [id number] [place] [address] Aug, [facility] [place] [facility] [address] [id number] [place] [address] Aug, [facility] [place] [facility] [address] [id number] [place] [address] Jul, [facility] [place] [facility] [address] [id number], [place] [address] Jul, [facility] [place] [facility] [address] [id number], [place] [address] Jun, [facility] [place] [facility] [address] [id number] [place] [address] Jun, [facility] [place] [facility] [address] [id number], [place] [address] Mar, [facility] [place] [facility] [address] [id number] [place] [address] January, [facility] [place] [facility] [address] [facility] [id number], [place] [address] Dec, [facility] [address] [id number], [place] [address] Dec, [facility] [address] [id number], [place] [address] Nov, [facility] [id number], [place] [address] Nov, [facility] [address] [id number], [place] [address] Oct, [facility] [id number], [place] [address] January, [facility] [id number], [place] [address] Dec, [facility] [address] [id number], [place] [address] Sep, IMMUNIZATIONS No Known Immunizations SOCIAL HISTORY Never Assessed REASON FOR VISIT Controlled Med Refill 07/09 PLAN OF CARE VITAL SIGNS MEDICATIONS Medication [...]
--- OUTSIDE RECORDS SUMMARY | 2018-08-12 07:06 | XMS REPORT ---
Author Author DEL HAWTHORNE Organization [facility] Address [address] [place] [address] Care Team Providers Care General Operations Manager Name Role Phone DEL HAWTHORNE Unavailable PROBLEMS Type Condition ICD9-CM Code SIY16-PY Code Onset Dates Condition Status SNOMED Code Problem Cervical disc disease M50.90 Active 840547223 Problem Anxiety disorder, unspecified F41.9 Active 947330979 Problem Gastroesophageal reflux disease, esophagitis presence not specified K21.9 Active 619119505 Problem Pulmonary emphysema, unspecified emphysema type J43.9 Active 81679119 Problem Chronic maxillary sinusitis J32.0 Active 71882919 Problem Prediabetes R73.03 Active 811731913 Problem Mixed hyperlipidemia E78.2 Active 569053891 Problem Right maxillary sinusitis J32.0 Active 54330519 Problem Sinusitis chronic, frontal J32.1 Active 74530653 Problem Hypertension I10 Active 74866681 Problem Reactive depression F32.9 Active 78878195 Problem Lumbago with sciatica, right side M54.41 Active 872562806 Problem Sciatica M54.30 Active 63284426 Problem Other chronic pain G89.29 Active 99389343 Problem PVCs (premature ventricular contractions) I49.3 Active 30072284 Problem Neck pain M54.2 Active 12015742 ALLERGIES No Information ENCOUNTERS Encounter Location Date Diagnosis [facility] [address] [address] Jun, Low back pain M54.5 [facility] [id number] [place] [address] 26297- 1249 Jun, Low back pain M54.5 [facility] [id number], [place] [address] May, Elevated glucose R73.09 [facility] [id number] [place] [address] 49037- 4436 18 May, 2018 Elevated glucose R73.09 [place] [address] 95127- 7461 11 May, 2018 Screening for breast cancer Z12.31 ; Well woman exam Z01.419 and Hypertension I10 [place] [address] 78734- 6075 10 May, 2018 Low back pain M54.5 [place] [address] 46489- 2166 05 May, 2018 Low back pain M54.5 [place] [address] 25164- 1940 Apr, [place] [address] 42818- 3709 Apr, [place] [address] 90253- 1406 Apr, Lumbago with sciatica, right side M54.41 ; Right maxillary sinusitis J32.0 ; Pulmonary emphysema, unspecified emphysema type J43.9 ; Hypertension I10 and Reactive depression F32.9 [place] [id number] [place] [address] 07138- 5492 Apr, [place] [id number] [place] [address] 39622- 3119 Apr, Low back pain M54.5 [facility] [id number] [place] [address] 07499- 5704 Apr, Low back pain M54.5 [place] [address] 36722- 2112 Mar, Gastroesophageal reflux disease, esophagitis presence not specified K21.9 and Low back pain M54.5 [facility] [id number] [place] [address] 03901 -1783 Feb, Chronic maxillary sinusitis J32.0 [facility] [id number] [place] [address] 73003- 9576 14 Feb, 2018 Low back pain M54.5 [facility] [id number] [place] [address] 77260- 1904 Feb, Low back pain M54.5 [facility] [id number] [place] [address] 90272- 3057 Feb, Low back pain M54.5 [facility] [id number] [place] [address] 13168- 6221 January, [facility] [address] 50910- 1618 January, Sinusitis chronic, frontal J32.1 [facility] [id number] [place] [address] 00263- 2437 January, Lumbago with sciatica, right side M54.41 ; Cervical disc disease M50.90 ; Hypertension I10 and Gastroesophageal reflux disease, esophagitis presence not specified K21.9 [facility] [id number] [place] [address] 79188- 7727 Dec, Low back pain M54.5 [facility] [id number] [place] [address] 12589- 7542 Dec, Low back pain M54.5 [facility] [id number] [place] [address] 92252- 0800 Nov, [facility] [id number] [place] [address] 91754 -5035 Nov, Right maxillary sinusitis J32.0 [facility] [id number] [place] [address] 36913- 6067 15 Nov, 2017 Low back pain M54.5 [facility] [id number] [place] [address] 32855 -6744 Oct, Sinusitis chronic, frontal J32.1 [facility] [id number] [place] [address] 83160- 2211 Oct, Neck pain M54.2 [facility] [address] 15899- 9229 Sep, Low back pain M54.5 [facility] [address] 25937- 6044 Sep, Neck pain M54.2 [facility] [address] 14735- 2456 Sep, Lumbago with sciatica, right side M54.41 ; Hypertension I10 ; Bronchitis J40 and Anxiety disorder, unspecified F41.9 [facility] [address] 20463- 1431 Aug, Neck pain M54.2 and Low back pain M54.5 [facility] [address] 12898- 8230 Jul, Neck pain M54.2 and Low back pain M54.5 [facility] [address] 09304- 2333 Jul, Neck pain M54.2 [facility] [address] 77678- 4281 Jun, Low back pain M54.5 and Neck pain M54.2 [facility] [id number] [place] [address] 82909- 5417 22 May, 2017 Low back pain M54.5 and Neck pain M54.2 [facility] [address] 49931- 6075 21 May, 2017 [facility] [id number] [place] [address] 88006 -6348 14 May, 2017 Bronchitis J40 [facility] [id number] [place] [address] 84162- 0057 Apr, Hyperglycemia R73.9 [facility] [id number] [place] [address] 27477- 9720 Apr, Hyperglycemia R73.9 [facility] [address] 73734- 7673 Apr, Gastroesophageal reflux disease, esophagitis presence not specified K21.9 ; Mixed hyperlipidemia E78.2 ; Neck pain M54.2 and PVCs ( premature ventricular contractions) I49.3 [place] [address] 34394- 1086 Mar, Low back pain M54.5 [place] [address] 47904- 9403 Feb, Low back pain M54.5 and Gastroesophageal reflux disease, esophagitis presence not specified K21.9 [place] [address] 08173- 0909 January, Dyspnea on exertion R06.09 [facility] [address] 84016- 6415 January, Hypertension I10 [place] [address] 23415- 1339 January, [facility] [address] 57164- 2809 January, Low back pain M54.5 [facility] [address] 96513- 8535 January, Low back pain M54.5 [facility] [id number] [place] [address] 25539- 6351 January, Gastroesophageal reflux disease, esophagitis presence not specified K21.9 ; Lumbago with sciatica, right side M54.41 and Dyspnea on exertion R06.09 [facility] [id number] [place] [address] 17123- 9107 Nov, [facility] [address] 23429- 1586 29 Nov, 2016 [facility] [address] 05129- 4492 Nov, Gastroesophageal reflux disease, esophagitis presence not specified K21.9 and Bronchitis J40 [facility] [address] 39764- 7156 15 Oct, 2016 Low back pain M54.5 and Anxiety disorder, unspecified F41.9 [facility] [address] 27266- 0410 10 Oct, 2016 Bronchitis J40 ; Hypertension I10 ; Sciatica M54.30 and Paresthesias R20.2 [facility] [address] [id number] Sep, Dental examination Z01.20 [facility] [address] [id number] Sep, Dental examination Z01.20 and Dental caries K02.9 [place] [address] 28662- 8444 Aug, [place] [address] 99649- 2713 Jul, Low back pain M54.5 and Anxiety disorder, unspecified F41.9 [place] [address] 10457- 7153 Jul, [facility] [address] 45865- 5826 31 Jun, 2016 Lumbago with sciatica, right side M54.41 ; Cervical disc disease M50.90 and Gastroesophageal reflux disease, esophagitis presence not specified K21.9 [facility] [address] 04501- 0159 Jun, [facility] [address] 66195- 0366 Jun, [place] [id number] [address]- 7593 Jun, [facility] [id number] [address]- 7154 18 Jun, 2016 [facility] [id number] [address]- 9590 Jun, [facility] [id number] [place] [address], [place] [address]- 0019 May, [facility] [address] [facility] [id number] [place] [address]- 5024 May, [facility] [id number] [place] [address], [place] [address]- 3390 May, [facility] [id number] [address]- 5142 Apr, [facility] [address] [place] [address], [place] [address]- 7282 Apr, [facility] [address], [place] [address]- 2465 Apr, [facility] [address], [place] [address]- 6159 Apr, Cervical disc disease M50.90 [facility] [address], [place] [address]- 7053 Apr, [facility] [address], [place] [address]- 6001 Apr, Neck pain M54.2 ; Hypertension I10 and Reactive depression F32.9 [facility] [address], [place] [address]- 8406 Mar, [facility] [address], [place] [address]- 1186 Mar, [facility] [address], [place] [address]- 5022 Mar, [facility] [id number] [place] [address] 41742- 0442 Feb, Sciatica M54.30 [facility] [address] 75773- 4404 Feb, Paresthesias R20.2 ; Sciatica M54.30 and Reactive depression F32.9 [place] [address] 97964- 7436 Feb, [facility] [address] 51360- 6107 January, [place] [address] 57676- 3721 January, Hyperlipemia, mixed E78.2 ; Other abnormalities of heart beat R00.8 and Anxiety F41.9 [place] [address] 79862- 3630 January, [place] [address] 46125- 3727 January, Low back pain M54.5 [place] [address] 79602- 0335 January, Anxiety disorder, unspecified F41.9 [place] [address] 29074- 9967 Dec, Ventricular bigeminy I49.9 [facility] [address] 78925- 6770 Dec, [facility] [address] 93937- 7523 Dec, Low back pain M54.5 [facility] [id number] [place] [address] 72394- 1955 Dec, Sciatica M54.30 [facility] [address] 42108- 1487 Nov, Major depressive disorder, single episode, unspecified F32.9 [facility] [id number] [place] [address] 14293- 4507 Nov, Sciatica M54.30 [facility] [id number] [place] [address] 05829- 7534 Nov, [facility] [address] 22736- 0690 Nov, [facility] [address] 53492- 8568 Nov, Anxiety disorder, unspecified F41.9 [facility] [address] 38897- 6365 Nov, [place] [address] 89320- 8294 Nov, Depressed F32.9 and Anxiety F41.9 [place] [id number] [place] [address] 45281- 7218 Nov, Lumbago 724.2 ; Sciatica M54.30 and PVCs (premature ventricular contractions) I49.3 [place] [id number] [place] [address] 76105- 0063 Oct, [facility] [id number] [place] [address] 24864- 8292 Oct, [facility] [id number] [place] [address] 67908- 8448 Oct, Sciatica M54.30 and Hypertension I10 [facility] [id number] [place] [address] 01204- 0957 Oct, [facility] [id number] [place] [address] 94384- 8192 Oct, [facility] [id number] [place] [address] 43125- 2158 Oct, [facility] [address], [place] [address]- 8798 Sep, [facility] [id number] [place] [address] 55699- 8669 Sep, [facility] [id number] [place] [address] 93591- 5986 Sep, [facility] [id number] [place] [address] 84690- 2056 Sep, Ventricular arrhythmia I49.9 [facility] [id number] [place] [address] 61219- 8428 Sep, Ventricular bigeminy I49.9 and Hypertension I10 [facility] [id number] [place] [address] 02504- 2115 Sep, Lumbago M54.5 and Ventricular bigeminy I49.9 [facility] [id number] [place] [address] 62918- 4608 Sep, [facility] [id number] [place] [address] 70037- 0171 Aug, [facility] [address] [place] [address] 24570- 6718 Aug, [facility] [address], [place] [address]- 1948 Aug, [facility] [address] [place] [address] 29399- 5179 Aug, [facility] [address] [place] [address] 39753- 7648 Aug, [facility] [id number] [place] [address] 60926- 8705 Jul, [facility] [address], [place] [address]- 7805 Jun, [facility] [id number]- 9869 14 May, 2015 [facility] [address], [place] [address]- 1058 May, [facility] [id number] 8085 May, Lumbago 724.2 and Depressive disorder, not elsewhere classified 311 [facility] [address], [place] [address]- 5861 Apr, UTI (urinary tract infection) 599.0 [facility] [address] 5010 Apr, UTI (urinary tract infection) 599.0 and Depression 311 [facility] [address], [place] [address]- 6382 Mar, [facility] [address], [place] [address]- 0845 Mar, [facility] [address], [place] [address]- 2024 Mar, [facility] [address], [place] [address]- 7252 Mar, Unspecified essential hypertension 401.9 ; Lumbago 724.2 and Anxiety 300.00 [facility] [address], [place] [address]- 6915 Mar, [facility] [id number], [place] [address]- 7474 Feb, [facility] [id number], [place] [address]- 4331 Feb, [facility] [id number] 2621 January, [facility] [id number] 5005 Dec, [facility] [address] [facility] [id number] [place] [address]- 6885 13 Dec, 2014 [facility] [place] [facility] [address] [id number] [place] [address]- 5116 10 Oct, 2014 [facility] [place] [facility] [address] [id number] [place] [address]- 6315 10 Oct, 2014 [facility] [place] [facility] [address] [id number] [place] [address]- 5665 Oct, [facility] [place] [facility] [address] [id number] [place] [address]- 3859 Oct, [facility] [place] [facility] [address] [id number] [place] [address]- 6284 Sep, [facility] [place] [facility] [address] [id number] [place] [address]- 9216 Sep, [facility] [place] [facility] [address] [id number] [place] [address]- 2082 Sep, [facility] [place] [facility] [address] [id number] [place] [address]- 1109 Sep, [facility] [place] [facility] [address] [id number] [place] [address]- 5297 Aug, [facility] [place] [facility] [address] [id number] [place] [address]- 9450 Aug, [facility] [place] [facility] [address] [id number] [place] [address]- 5039 Jul, [facility] [place] [facility] [address] [id number] [place] [address]- 9745 Jul, [facility] [place] [facility] [address] [id number] [place] [address]- 2752 Jun, [facility] [place] [facility] [address] [id number] [place] [address]- 1708 Jun, [facility] [place] [facility] [address] [id number] [place] [address]- 2055 Jun, [facility] [place] [facility] [address] [id number] [place] [address]- 8076 Jun, [facility] [place] [facility] [address] [id number] [place] [address]- 8821 Jun, [facility] [place] [facility] [address] [id number] [place] [address]- 1789 Jun, [facility] [place] [facility] [address] [id number] [place] [address]- 3891 May, [facility] [place] [facility] [address] [id number] [place] [address]- 1956 May, [facility] [place] [facility] [address] [id number] [place] [address]- 9523 Apr, [facility] [place] [facility] [address] [id number] [place] [address]- 7239 Apr, [facility] [place] [facility] [address] [id number] [place] [address]- 7661 Apr, [facility] [place] [facility] [address] [id number] [place] [address]- 6136 Apr, [facility] [place] [facility] [address] [id number] [place] [address]- 3869 Mar, [facility] [place] [facility] [address] [id number] [place] [address]- 1775 Mar, [facility] [place] [facility] [address] [id number] [place] [address]- 7307 Mar, [facility] [place] [facility] [address] [id number] [place] [address]- 6859 Mar, [facility] [place] [facility] [address] [id number] [place] [address]- 7154 Mar, [facility] [place] [facility] [address] [id number] [place] [address]- 5019 Mar, [facility] [place] [facility] [address] [id number] [place] [address]- 5870 Mar, [facility] [place] [facility] [address] [id number] [place] [address]- 6606 Mar, [facility] [place] [facility] [address] [id number] [place] [address]- 4769 Feb, [facility] [place] [facility] [address] [id number] [place] [address]- 6657 Feb, [facility] [place] [facility] [address] [id number] [place] [address]- 5792 January, [facility] [place] [facility] [address] [id number] [place] [address]- 2313 January, [facility] [place] [facility] [address] [id number] [place] [address]- 2659 January, [facility] [place] [facility] [address] [id number] [place] [address]- 1593 January, [facility] [place] [facility] [address] [id number] [place] [address]- 0477 Dec, [facility] [place] [facility] [address] [id number] [place] [address]- 3043 Dec, [facility] [place] [facility] [address] [id number] [place] [address]- 4661 Dec, [facility] [place] [facility] [address] [id number] [place] [address]- 9353 Dec, [facility] [place] [facility] [address] [id number] [place] [address]- 2622 Nov, [facility] [place] [facility] [address] [id number] [place] [address]- 0976 Nov, [facility] [place] [facility] [address] [id number] [place] [address]- 4868 Sep, [facility] [place] [facility] [address] [id number] [place] [address]- 9125 Sep, [facility] [place] [facility] [address] [id number] [place] [address]- 9457 Sep, [facility] [address] [id number] [place] [address]- 9849 Sep, [facility] [address] [id number] [place] [address]- 5057 Sep, [facility] [address] [id number] [place] [address]- 6685 Sep, [facility] [address] [id number] [place] [address]- 1465 Aug, [facility] [address] [id number] [place] [address]- 1369 Aug, [facility] [address] [id number] [place] [address] Aug, [facility] [address] [id number] [place] [address] Aug, [facility] [address] [id number] [place] [address] Jul, [facility] [address] [id number] [place] [address] Jul, [facility] [address] [id number] [place] [address] Jun, [facility] [address] [id number] [place] [address] Jun, [facility] [place] [facility] [address] [id number] [place] [address] Mar, [facility] [place] [facility] [address] [id number] [place] [address] January, [facility] [place] [facility] [address] [id number] [place] [address] Dec, [facility] [place] [facility] [address] [id number], [place] [address] Dec, [facility] [address] [facility] [id number], [place] [address] Nov, [facility] [address] [facility] [id number], [place] [address] Nov, [facility] [address] [facility] [id number], [place] [address] Oct, [facility] [address] [facility] [id number], [place] [address] January, [facility] [address] [facility] [id number], [place] [address] Dec, [facility] [address] [facility] [id number], [place] [address] Sep, IMMUNIZATIONS No Known Immunizations SOCIAL [...]
--- OUTSIDE RECORDS SUMMARY | 2018-08-12 07:07 | XMS REPORT ---
Author Author MELANIE ESCOBAR Organization [facility] Address [address] [place] [address] Care Team Providers Care Business Operations Consultant Name Role Phone MELANIE ESCOBAR Unavailable PROBLEMS Type Condition ICD9-CM Code KWP69-OP Code Onset Dates Condition Status SNOMED Code Problem Cervical disc disease M50.90 Active 304955597 Problem Anxiety disorder, unspecified F41.9 Active 379774074 Problem Gastroesophageal reflux disease, esophagitis presence not specified K21.9 Active 049172039 Problem Pulmonary emphysema, unspecified emphysema type J43.9 Active 29879389 Problem Chronic maxillary sinusitis J32.0 Active 97704628 Problem Prediabetes R73.03 Active 283978740 Problem Mixed hyperlipidemia E78.2 Active 997614356 Problem Right maxillary sinusitis J32.0 Active 28032922 Problem Sinusitis chronic, frontal J32.1 Active 93893057 Problem Hypertension I10 Active 18987093 Problem Reactive depression F32.9 Active 95747269 Problem Lumbago with sciatica, right side M54.41 Active 211897342 Problem Sciatica M54.30 Active 68095142 Problem Other chronic pain G89.29 Active 15066128 Problem PVCs (premature ventricular contractions) I49.3 Active 46830065 Problem Neck pain M54.2 Active 91890151 ALLERGIES No Information ENCOUNTERS Encounter Location Date Diagnosis [facility] [address] [address] Jun, Low back pain M54.5 [facility] [id number] [place] [address] 93965- 9236 May, Elevated glucose R73.09 [facility] [id number] [address] 49[address] May, Elevated glucose R73.09 [facility] [id number] [place] [address] 46478- 6887 11 May, 2018 Screening for breast cancer Z12.31 ; Well woman exam Z01.419 and Hypertension I10 [facility] [id number] [place] [address] 45291- 3940 10 May, 2018 Low back pain M54.5 [facility] [address] 12558- 2975 05 May, 2018 Low back pain M54.5 [facility] [address] 89310- 1314 Apr, [facility] [address] 40840- 1305 Apr, [facility] [address] 74302- 0308 Apr, Lumbago with sciatica, right side M54.41 ; Right maxillary sinusitis J32.0 ; Pulmonary emphysema, unspecified emphysema type J43.9 ; Hypertension I10 and Reactive depression F32.9 [facility] [address] 61199- 7147 Apr, [facility] [address] 71754- 1399 Apr, Low back pain M54.5 [facility] [address] 62624- 5853 Apr, Low back pain M54.5 [facility] [id number] [place] [address] 52652- 2594 Mar, Gastroesophageal reflux disease, esophagitis presence not specified K21.9 and Low back pain M54.5 [facility] [id number] [place] [address] 91709 -3202 Feb, Chronic maxillary sinusitis J32.0 [facility] [address] 35950- 4748 14 Feb, 2018 Low back pain M54.5 [facility] [id number] [place] [address] 30575- 3846 Feb, Low back pain M54.5 [facility] [address] 61292- 4484 Feb, Low back pain M54.5 [facility] [address] 31677- 1139 January, [facility] [address] 75570- 5898 January, Sinusitis chronic, frontal J32.1 [facility] [address] 89575- 2188 January, Lumbago with sciatica, right side M54.41 ; Cervical disc disease M50.90 ; Hypertension I10 and Gastroesophageal reflux disease, esophagitis presence not specified K21.9 [facility] [address] 94701- 6578 Dec, Low back pain M54.5 [facility] [address] 27275- 2113 Dec, Low back pain M54.5 [facility] [address] 83341- 6006 Nov, [facility] [id number] [place] [address] 00785 -4564 Nov, Right maxillary sinusitis J32.0 [facility] [id number] [place] [address] 94513- 3821 15 Nov, 2017 Low back pain M54.5 [facility] [address] 42065 -0421 Oct, Sinusitis chronic, frontal J32.1 [facility] [id number] [place] [address] 04372- 3699 Oct, Neck pain M54.2 [facility] [address] 56993- 3342 Sep, Low back pain M54.5 [facility] [address] 22605- 8607 Sep, Neck pain M54.2 [facility] [address] 43492- 9730 Sep, Lumbago with sciatica, right side M54.41 ; Hypertension I10 ; Bronchitis J40 and Anxiety disorder, unspecified F41.9 [facility] [address] 33482- 3955 Aug, Neck pain M54.2 and Low back pain M54.5 [facility] [address] 04154- 4833 16 Jul, 2017 Neck pain M54.2 and Low back pain M54.5 [facility] [address] 67250- 9359 Jul, Neck pain M54.2 [facility] [address] 09546- 7783 Jun, Low back pain M54.5 and Neck pain M54.2 [facility] [address] 39139- 6913 22 May, 2017 Low back pain M54.5 and Neck pain M54.2 [facility] [address] 16174- 9698 21 May, 2017 [facility] [address] 42977 -4648 14 May, 2017 Bronchitis J40 [facility] [address] 52637- 5390 11 Apr, 2017 Hyperglycemia R73.9 [facility] [address] 96797- 7429 08 Apr, 2017 Hyperglycemia R73.9 [facility] [id number] [place] [address] 02374- 5378 Apr, Gastroesophageal reflux disease, esophagitis presence not specified K21.9 ; Mixed hyperlipidemia E78.2 ; Neck pain M54.2 and PVCs ( premature ventricular contractions) I49.3 [facility] [id number] [place] [address] 82845- 4123 Mar, Low back pain M54.5 [facility] [address] 03939- 8819 Feb, Low back pain M54.5 and Gastroesophageal reflux disease, esophagitis presence not specified K21.9 [facility] [address] 09364- 0621 January, Dyspnea on exertion R06.09 [facility] [address] 16220- 0322 January, Hypertension I10 [facility] [address] 16613- 5347 January, [facility] [address] 94183- 5603 January, Low back pain M54.5 [facility] [id number] [place] [address] 05704- 5651 January, Low back pain M54.5 [facility] [id number] [place] [address] 99822- 2409 January, Gastroesophageal reflux disease, esophagitis presence not specified K21.9 ; Lumbago with sciatica, right side M54.41 and Dyspnea on exertion R06.09 [facility] [id number] [place] [address] 29229- 7087 Nov, [facility] [id number] [place] [address] 29909- 9196 Nov, [facility] [address] [place] [address]- 1365 Nov, Gastroesophageal reflux disease, esophagitis presence not specified K21.9 and Bronchitis J40 [facility] [address] 21392- 5653 15 Oct, 2016 Low back pain M54.5 and Anxiety disorder, unspecified F41.9 [facility] [address] 63881- 7827 10 Oct, 2016 Bronchitis J40 ; Hypertension I10 ; Sciatica M54.30 and Paresthesias R20.2 [facility] [place] [facility] [address] [id number] Sep, Dental examination Z01.20 [facility] [place] [facility] [address] [id number] Sep, Dental examination Z01.20 and Dental caries K02.9 [facility] [address] 88680- 4750 Aug, [facility] [address] 16020- 5720 Jul, Low back pain M54.5 and Anxiety disorder, unspecified F41.9 [facility] [address] 11110- 3584 Jul, [facility] [id number] [place] [address] 95549- 1983 Jun, Lumbago with sciatica, right side M54.41 ; Cervical disc disease M50.90 and Gastroesophageal reflux disease, esophagitis presence not specified K21.9 [facility] [address] 48949- 5805 Jun, [facility] [address] 84401- 5322 Jun, [facility] [address] 92151- 5236 Jun, [facility] [address] [place] [address]- 8102 18 Jun, 2016 [facility] [address] [place] [address], [place] [address]- 5259 Jun, [facility] [address] [place] [address]- 4122 23 May, 2016 [facility] [address] [place] [address], [place] [address]- 8663 16 May, 2016 [facility] [address] [facility] [id number] [place] [address]- 0585 May, [facility] [id number] [place] [address], [place] [address]- 4003 Apr, [facility] [address] [place] [address]- 6832 Apr, [facility] [address] [place] [address], [place] [address]- 9266 Apr, [facility] [address], [place] [address]- 3974 Apr, Cervical disc disease M50.90 [facility] [address], [place] [address]- 6472 Apr, [facility] [address], [place] [address]- 4671 Apr, Neck pain M54.2 ; Hypertension I10 and Reactive depression F32.9 [facility] [address], [place] [address]- 1693 Mar, [facility] [address], [place] [address]- 1350 Mar, [facility] [address], [place] [address]- 1057 Mar, [facility] [address], [place] [address]- 7965 Feb, Sciatica M54.30 [facility] [id number] [place] [address] 56135- 6857 Feb, Paresthesias R20.2 ; Sciatica M54.30 and Reactive depression F32.9 [facility] [id number] [place] [address] 62289- 9109 Feb, [facility] [address] 59562- 5783 January, [facility] [address] 11105- 4798 January, Hyperlipemia, mixed E78.2 ; Other abnormalities of heart beat R00.8 and Anxiety F41.9 [facility] [address] 09649- 6509 January, [facility] [address] 61278- 6954 January, Low back pain M54.5 [facility] [address] 29469- 9985 January, Anxiety disorder, unspecified F41.9 [facility] [address] 82262- 1515 Dec, Ventricular bigeminy I49.9 [facility] [id number] [place] [address] 93602- 7514 Dec, [facility] [address] 21517- 7043 Dec, Low back pain M54.5 [facility] [address] 50355- 1795 Dec, Sciatica M54.30 [facility] [id number] [place] [address] 77886- 1929 Nov, Major depressive disorder, single episode, unspecified F32.9 [facility] [address] [place] [address]- 9508 Nov, Sciatica M54.30 [facility] [address] 81490- 6351 Nov, [facility] [address] 70888- 3174 Nov, [facility] [address] 78710- 9112 Nov, Anxiety disorder, unspecified F41.9 [facility] [address] 31161- 7460 Nov, [facility] [address] 03481- 7839 Nov, Depressed F32.9 and Anxiety F41.9 [facility] [address] 54953- 3721 Nov, Lumbago 724.2 ; Sciatica M54.30 and PVCs (premature ventricular contractions) I49.3 [facility] [id number] [place] [address] 74578- 6051 Oct, [facility] [id number] [place] [address] 08150- 6091 Oct, [facility] [id number] [place] [address] 41141- 2122 Oct, Sciatica M54.30 and Hypertension I10 [facility] [id number] [place] [address] 26373- 5810 Oct, [facility] [id number] [place] [address] 67818- 7758 Oct, [facility] [id number] [place] [address] 61808- 5349 Oct, [facility] [address] 24434- 6610 Sep, [facility] [address], [place] [address]- 4823 Sep, [facility] [id number] [place] [address], [place] [address]- 1808 Sep, [facility] [id number] [place] [address] 20392- 2880 Sep, Ventricular arrhythmia I49.9 [facility] [id number] [place] [address] 41260- 0019 Sep, Ventricular bigeminy I49.9 and Hypertension I10 [facility] [id number] [place] [address] 84736- 3200 Sep, Lumbago M54.5 and Ventricular bigeminy I49.9 [facility] [id number] [place] [address] 50715- 7721 Sep, [facility] [id number] [place] [address] 40997- 9113 Aug, [facility] [id number] [place] [address] 13861- 7310 Aug, [facility] [address] [place] [address] 25958- 7535 Aug, [facility] [address], [place] [address]- 0993 Aug, [facility] [address] [place] [address] 15101- 6819 Aug, [facility] [place] [facility] [address], [place] [address]- 7663 Jul, [facility] [id number] [place] [address] 46410- 5346 29 Jun, 2015 [facility] [address], [place] [address]- 9987 14 May, 2015 [facility] [id number], [place] [address]- 6155 May, [facility] [id number] 2748 May, Lumbago 724.2 and Depressive disorder, not elsewhere classified 311 [facility] [id number] 6280 Apr, UTI (urinary tract infection) 599.0 [facility] [address] 4292 Apr, UTI (urinary tract infection) 599.0 and Depression 311 [facility] [address], [place] [address]- 7678 Mar, [facility] [address], [place] [address]- 0636 Mar, [facility] [address], [place] [address]- 2542 Mar, [facility] [address], [place] [address]- 6239 Mar, Unspecified essential hypertension 401.9 ; Lumbago 724.2 and Anxiety 300.00 [facility] [id number], [place] [address]- 0575 Mar, [facility] [id number], [place] [address]- 2744 Feb, [facility] [id number], [place] [address]- 5593 Feb, [facility] [id number], [place] [address]- 9938 January, [facility] [id number], [place] [address]- 2381 Dec, [facility] [id number], [place] [address]- 7641 Dec, [facility] [address] [place] [address]- 0928 10 Oct, 2014 [facility] [place] [facility] [address] [id number] [place] [address]- 2492 10 Oct, 2014 [facility] [place] [facility] [address] [id number] [place] [address]- 1498 Oct, 2014 [facility] [place] [facility] [address] [id number] [place] [address]- 6811 Oct, [facility] [place] [facility] [address] [id number] [place] [address]- 6696 Sep, [facility] [place] [facility] [address] [id number] [place] [address]- 4864 Sep, [facility] [place] [facility] [address] [id number] [place] [address]- 6772 Sep, [facility] [place] [facility] [address] [id number] [place] [address]- 7226 Sep, [facility] [place] [facility] [address] [id number] [place] [address]- 1880 Aug, [facility] [place] [facility] [address] [id number] [place] [address]- 3804 Aug, [facility] [place] [facility] [address] [facility] [id number] [place] [address]- 2784 Jul, [facility] [place] [facility] [address] [id number] [place] [address]- 5390 Jul, [facility] [place] [facility] [address] [id number] [place] [address]- 2375 Jun, [facility] [place] [facility] [address] [id number] [place] [address]- 7389 Jun, [facility] [place] [facility] [address] [id number] [place] 2569 Jun, [facility] [place] [facility] [address] [id number] [place] [address]- 7226 Jun, [facility] [place] [facility] [address] [id number] [place] [address]- 5885 Jun, [facility] [place] [facility] [address] [id number] [place] [address]- 1084 Jun, [facility] [place] [facility] [address] [id number] [place] [address]- 1945 May, [facility] [place] [facility] [address] [id number] [place] [address]- 3063 May, [facility] [place] [facility] [address] [id number] [place] [address]- 0089 Apr, [facility] [place] [facility] [address] [id number] [place] [address]- 9813 Apr, [facility] [place] [facility] [address] [id number] [place] [address]- 6466 Apr, [facility] [place] [facility] [address] [id number] [place] [address]- 2049 Apr, [facility] [place] [facility] [address] [id number] [place] [address]- 5520 Mar, [facility] [place] [facility] [address] [id number] [place] [address]- 1738 Mar, [facility] [place] [facility] [address] [id number] [place] [address]- 9019 Mar, [facility] [place] [facility] [address] [id number] [place] [address]- 1885 Mar, [facility] [place] [facility] [address] [id number] [place] [address]- 8752 Mar, [facility] [place] [facility] [address] [id number] [place] [address]- 0258 Mar, [facility] [place] [facility] [address] [id number] [place] [address]- 0207 Mar, [facility] [place] [facility] [address] [id number] [place] [address]- 6569 Mar, [facility] [place] [facility] [address] [id number] [place] [address]- 7661 Feb, [facility] [place] [facility] [address] [id number] [place] 6353 Feb, [facility] [place] [facility] [address] [id number] [place] [address]- 5557 January, [facility] [place] [facility] [address] [id number] [place] [address]- 8772 January, [facility] [place] [facility] [address] [id number] [place] [address]- 8283 January, [facility] [place] [facility] [address] [id number] [place] [address]- 8193 January, [facility] [place] [facility] [address] [id number] [place] [address]- 5485 Dec, [facility] [place] [facility] [address] [id number] [place] [address]- 2849 Dec, [facility] [place] [facility] [address] [id number] [place] [address]- 4648 Dec, [facility] [place] [facility] [address] [id number] [place] [address]- 1358 Dec, [facility] [place] [facility] [address] [id number] [place] [address]- 7194 Nov, [facility] [place] [facility] [address] [id number] [place] [address]- 2962 Nov, [facility] [place] [facility] [address] [id number] [place] [address]- 2248 Sep, [facility] [place] [facility] [address] [id number] [place] [address]- 6005 Sep, [facility] [place] [facility] [address] [id number] [place] [address]- 9521 Sep, [facility] [place] [facility] [address] [id number] [place] [address]- 9925 16 Sep, 2013 [facility] [address] [id number] [place] [address]- 8807 Sep, [facility] [place] [facility] [address] [id number] [place] [address]- 0138 Sep, [facility] [place] [facility] [address] [id number] [place] [address]- 1282 Aug, [facility] [address] [id number] [place] [address]- 5810 Aug, [facility] [place] [facility] [address] [id number] [place] [address]- 6342 Aug, [facility] [place] [facility] [address] [id number] [place] [address]- 8838 Aug, [facility] [place] [facility] [address] [id number] [place] [address]- 4487 Jul, [facility] [place] [facility] [address] [id number] [place] [address] Jul, [facility] [place] [facility] [address] [id number] [place] [address] Jun, [facility] [place] [facility] [address] [id number] [place] [address] Jun, [facility] [place] [facility] [address] [id number] [place] [address] Mar, [facility] [place] [facility] [address] [id number] [place] [address] January, [facility] [place] [facility] [address] [id number] [place] [address] Dec, [facility] [place] [facility] [address] [id number] [place] [address] Dec, [facility] [place] [facility] [address] [id number], [place] [address] Nov, [facility] [address] [facility] [place] [id number], [place] [address] Nov, [facility] [address] [facility] [place] [id number], [place] [address] Oct, [facility] [address] [facility] [place] [id number], [place] [address] January, [facility] [address] [facility] [place] [id number], [place] [address] Dec, [facility] [address] [facility] [place] [id number], [place] [address] Sep, IMMUNIZATIONS No Known Immunizations SOCIAL HISTORY Never Assessed REASON FOR VISIT Lab (walk-in) PLAN OF CARE VITAL SIGNS MEDICATIONS Unknown Medications RESULTS Name Result Date Reference Range A1C (IN HOUSE) 2018-06-01 A1C IN HOUSE 6.5 4.3 - 5.6 % Previous A1c 6.0 Lot [id number] Exp date 11/2019 PROCEDURES Procedure Date Ordered Result Body Site GLYCATED HEMOGLOBIN TEST Jun 01, 2018 INSTRUCTIONS MEDICATIONS ADMINISTERED No Known Medications MEDICAL [...]
--- OUTSIDE RECORDS SUMMARY | 2018-08-12 07:07 | XMS REPORT ---
Author Author JOHANNY KINNEY Organization [facility] Address [address] [place] [address] Care Team Providers Care Rehabilitation Inspector Name Role Phone JOHANNY KINNEY Unavailable PROBLEMS Type Condition ICD9-CM Code EAT40-RT Code Onset Dates Condition Status SNOMED Code Problem Cervical disc disease M50.90 Active 607964916 Problem Anxiety disorder, unspecified F41.9 Active 125936934 Problem Gastroesophageal reflux disease, esophagitis presence not specified K21.9 Active 175851898 Problem Pulmonary emphysema, unspecified emphysema type J43.9 Active 23286447 Problem Chronic maxillary sinusitis J32.0 Active 86939322 Problem Prediabetes R73.03 Active 191594338 Problem Mixed hyperlipidemia E78.2 Active 233234246 Problem Right maxillary sinusitis J32.0 Active 33644062 Problem Sinusitis chronic, frontal J32.1 Active 34075855 Problem Hypertension I10 Active 84458222 Problem Reactive depression F32.9 Active 91133025 Problem Lumbago with sciatica, right side M54.41 Active 575961856 Problem Sciatica M54.30 Active 83467426 Problem Other chronic pain G89.29 Active 89723780 Problem PVCs (premature ventricular contractions) I49.3 Active 34644405 Problem Neck pain M54.2 Active [id number] ALLERGIES No Information ENCOUNTERS Encounter Location Date Diagnosis [facility] [id number] [address] Jun, Low back pain M54.5 [facility] [id number] [place] [address] 53752- 2648 Jun, Low back pain M54.5 [facility] [id number] [address] May, Elevated glucose R73.09 [facility] [id number] [place] [address] 94715- 5499 18 May, 2018 Elevated glucose R73.09 [place] [address] 94695- 5546 11 May, 2018 Screening for breast cancer Z12.31 ; Well woman exam Z01.419 and Hypertension I10 [place] [address] 94200- 5756 10 May, 2018 Low back pain M54.5 [place] [address] 42822- 5613 05 May, 2018 Low back pain M54.5 [place] [address] 33653- 9453 Apr, [place] [address] 51043- 4333 Apr, [place] [address] 20177- 5539 Apr, Lumbago with sciatica, right side M54.41 ; Right maxillary sinusitis J32.0 ; Pulmonary emphysema, unspecified emphysema type J43.9 ; Hypertension I10 and Reactive depression F32.9 [facility] [id number] [place] [address] 92729- 0382 Apr, [place] [id number] [place] [address] 67275- 0565 Apr, Low back pain M54.5 [facility] [id number] [place] [address] 66538- 6695 Apr, Low back pain M54.5 [place] [address] 27024- 2398 Mar, Gastroesophageal reflux disease, esophagitis presence not specified K21.9 and Low back pain M54.5 [facility] [id number] [place] [address] 67660 -5955 Feb, Chronic maxillary sinusitis J32.0 [facility] [id number] [place] [address] 88105- 2185 14 Feb, 2018 Low back pain M54.5 [facility] [id number] [place] [address] 01127- 1359 Feb, Low back pain M54.5 [facility] [id number] [place] [address] 81463- 2798 Feb, Low back pain M54.5 [facility] [id number] [place] [address] 77346- 3213 January, [facility] [address] 46257- 4833 January, Sinusitis chronic, frontal J32.1 [facility] [id number] [place] [address] 73999- 1426 January, Lumbago with sciatica, right side M54.41 ; Cervical disc disease M50.90 ; Hypertension I10 and Gastroesophageal reflux disease, esophagitis presence not specified K21.9 [facility] [id number] [place] [address] 30175- 7929 Dec, Low back pain M54.5 [facility] [id number] [place] [address] 77142- 9643 Dec, Low back pain M54.5 [facility] [id number] [place] [address] 55302- 2625 Nov, [facility] [id number] [place] [address] 30017 -0214 Nov, Right maxillary sinusitis J32.0 [facility] [id number] [place] [address] 65950- 6564 15 Nov, 2017 Low back pain M54.5 [facility] [id number] [place] [address] 64110 -2893 Oct, Sinusitis chronic, frontal J32.1 [facility] [id number] [place] [address] 01589- 6977 Oct, Neck pain M54.2 [facility] [address] 59300- 8327 Sep, Low back pain M54.5 [facility] [address] 95210- 3825 Sep, Neck pain M54.2 [facility] [address] 84204- 6859 Sep, Lumbago with sciatica, right side M54.41 ; Hypertension I10 ; Bronchitis J40 and Anxiety disorder, unspecified F41.9 [facility] [address] 70799- 8773 Aug, Neck pain M54.2 and Low back pain M54.5 [facility] [address] 78904- 2683 16 Jul, 2017 Neck pain M54.2 and Low back pain M54.5 [facility] [address] 49848- 3900 Jul, Neck pain M54.2 [facility] [address] 03470- 6980 Jun, Low back pain M54.5 and Neck pain M54.2 [facility] [address] 95467- 7812 22 May, 2017 Low back pain M54.5 and Neck pain M54.2 [facility] [address] 08654- 0765 21 May, 2017 [facility] [address] 71103 -5566 14 May, 2017 Bronchitis J40 [facility] [address] 61509- 8518 Apr, Hyperglycemia R73.9 [facility] [id number] [place] [address] 06664- 8497 08 Apr, 2017 Hyperglycemia R73.9 [facility] [address] 93190- 8337 07 Apr, 2017 Gastroesophageal reflux disease, esophagitis presence not specified K21.9 ; Mixed hyperlipidemia E78.2 ; Neck pain M54.2 and PVCs ( premature ventricular contractions) I49.3 [facility] [address] 06306- 0689 Mar, Low back pain M54.5 [place] [address] 55970- 0331 Feb, Low back pain M54.5 and Gastroesophageal reflux disease, esophagitis presence not specified K21.9 [place] [address] 06269- 6824 January, Dyspnea on exertion R06.09 [facility] [address] 77137- 6905 January, Hypertension I10 [facility] [address] 60546- 8639 January, [facility] [address] 84895- 0762 January, Low back pain M54.5 [facility] [address] 93612- 1500 January, Low back pain M54.5 [facility] [id number] [place] [address] 11154- 6516 January, Gastroesophageal reflux disease, esophagitis presence not specified K21.9 ; Lumbago with sciatica, right side M54.41 and Dyspnea on exertion R06.09 [facility] [id number] [place] [address] 95657- 2222 Nov, [facility] [address] 25889- 3233 29 Nov, 2016 [facility] [address] 11902- 8070 Nov, Gastroesophageal reflux disease, esophagitis presence not specified K21.9 and Bronchitis J40 [place] [address] 55167- 6757 15 Oct, 2016 Low back pain M54.5 and Anxiety disorder, unspecified F41.9 [facility] [address] 64285- 1928 10 Oct, 2016 Bronchitis J40 ; Hypertension I10 ; Sciatica M54.30 and Paresthesias R20.2 [facility] [address] [id number] Sep, Dental examination Z01.20 [facility] [address] [id number] Sep, Dental examination Z01.20 and Dental caries K02.9 [place] [address] 35441- 4653 Aug, [place] [address] 58748- 9591 Jul, Low back pain M54.5 and Anxiety disorder, unspecified F41.9 [place] [address] 37457- 2359 Jul, [facility] [address] 18224- 6723 Jun, Lumbago with sciatica, right side M54.41 ; Cervical disc disease M50.90 and Gastroesophageal reflux disease, esophagitis presence not specified K21.9 [facility] [address] 79120- 0649 Jun, [place] [address] 92061- 9995 Jun, [place] [address] [place] [address]- 1494 Jun, [facility] [address] [place] [address]- 3141 18 Jun, 2016 [facility] [address] [facility] [id number] [place] [address]- 4406 Jun, [facility] [address] [place] [address], [place] [address]- 6177 23 May, 2016 [facility] [address] [facility] [id number] [place] [address]- 9495 May, [facility] [id number] [place] [address], [place] [address]- 8305 May, [facility] [address] [place] [address]- 2326 Apr, [facility] [address] [place] [address]- 9458 Apr, [facility] [address] [place] [address]- 3648 Apr, [facility] [address] [place] [address]- 1627 Apr, Cervical disc disease M50.90 [facility] [address] [address]- 0050 Apr, [facility] [address] [address]- 5312 Apr, Neck pain M54.2 ; Hypertension I10 and Reactive depression F32.9 [facility] [address] [address]- 4075 Mar, [facility] [address] [address]- 1913 Mar, [facility] [address], [place] [address]- 7633 Mar, [place] [id number] [place] [address] 91400- 4007 Feb, Sciatica M54.30 [place] [address] 33701- 0836 Feb, Paresthesias R20.2 ; Sciatica M54.30 and Reactive depression F32.9 [place] [address] 34314- 6540 Feb, [place] [address] 35717- 1799 January, [place] [address] 02001- 4434 January, Hyperlipemia, mixed E78.2 ; Other abnormalities of heart beat R00.8 and Anxiety F41.9 [place] [address] 03463- 5528 January, [place] [address] 10885- 5489 January, Low back pain M54.5 [place] [address] 30909- 5964 January, Anxiety disorder, unspecified F41.9 [place] [id number] [place] [address] 35006- 5789 Dec, Ventricular bigeminy I49.9 [place] [address] 26344- 1208 Dec, [facility] [address] 59406- 8933 Dec, Low back pain M54.5 [facility] [id number] [place] [address] 39019- 7422 Dec, Sciatica M54.30 [place] [address] 58850- 0751 Nov, Major depressive disorder, single episode, unspecified F32.9 [facility] [id number] [place] [address] 82883- 2578 Nov, Sciatica M54.30 [facility] [id number] [place] [address] 74534- 4866 Nov, [facility] [address] 15063- 9015 Nov, [facility] [address] 12192- 2474 Nov, Anxiety disorder, unspecified F41.9 [facility] [address] 80621- 9980 Nov, [place] [id number] [place] [address] 11844- 1368 Nov, Depressed F32.9 and Anxiety F41.9 [place] [id number] [place] [address] 12056- 7370 Nov, Lumbago 724.2 ; Sciatica M54.30 and PVCs (premature ventricular contractions) I49.3 [place] [id number] [place] [address] 54348- 1888 Oct, [facility] [id number] [place] [address] 91871- 8042 Oct, [facility] [id number] [place] [address] 00114- 6087 Oct, Sciatica M54.30 and Hypertension I10 [facility] [id number] [place] [address] 23142- 2871 Oct, [facility] [id number] [place] [address] 41936- 2411 Oct, [facility] [id number] [place] [address] 40866- 8757 Oct, [facility] [address], [place] [address]- 7183 Sep, [facility] [id number] [place] [address] 38853- 2547 Sep, [facility] [id number] [place] [address] 60398- 1857 Sep, [facility] [id number] [place] [address] 30310- 0842 Sep, Ventricular arrhythmia I49.9 [facility] [id number] [place] [address] 05922- 8624 Sep, Ventricular bigeminy I49.9 and Hypertension I10 [facility] [id number] [place] [address] 70118- 9054 Sep, Lumbago M54.5 and Ventricular bigeminy I49.9 [facility] [id number] [place] [address] 59292- 6176 Sep, [facility] [id number] [place] [address] 46471- 7174 Aug, [facility] [id number] [place] [address] 20195- 3197 Aug, [facility] [address] [address]- 1072 Aug, [facility] [id number] [place] [address] 52169- 4309 Aug, [facility] [id number] [place] [address] 40136- 6653 Aug, [facility] [id number] [place] [address] 62558- 4756 Jul, [facility] [address] [address]- 8557 Jun, [facility] [id number] [address]- 0397 14 May, 2015 [facility] [id number] [address]- 4088 May, [facility] [address] 9030 May, Lumbago 724.2 and Depressive disorder, not elsewhere classified 311 [facility] [address] [address]- 8192 Apr, UTI (urinary tract infection) 599.0 [facility] [address] 8616 Apr, UTI (urinary tract infection) 599.0 and Depression 311 [facility] [address] [address]- 1008 Mar, [facility] [address] [address]- 6092 Mar, [facility] [address] [address]- 0642 Mar, [facility] [address] [address]- 5355 Mar, Unspecified essential hypertension 401.9 ; Lumbago 724.2 and Anxiety 300.00 [facility] [address] [address]- 2508 Mar, [facility] [id number] [address]- 3227 Feb, [facility] [id number] [address]- 8047 Feb, [facility] [id number] 2739 January, [facility] [id number] [address]- 2601 Dec, [facility] [id number] [place] [address]- 2332 Dec, [facility] [place] [facility] [address] [id number] [place] [address]- 5981 Oct, [facility] [place] [facility] [address] [id number] [place] [address]- 8476 Oct, 2014 [facility] [place] [facility] [address] [id number] [place] [address]- 0128 Oct, [facility] [place] [facility] [address] [id number] [place] [address]- 2463 Oct, [facility] [place] [facility] [address] [id number] [place] [address]- 9105 Sep, [facility] [place] [facility] [address] [id number] [place] [address]- 7569 Sep, [facility] [place] [facility] [address] [id number] [place] [address]- 5639 Sep, [facility] [place] [facility] [address] [id number] [place] [address]- 3207 Sep, [facility] [place] [facility] [address] [id number] [place] [address]- 2838 Aug, [facility] [place] [facility] [address] [id number] [place] [address]- 2468 Aug, [facility] [place] [facility] [address] [id number] [place] [address]- 3069 Jul, [facility] [place] [facility] [address] [id number] [place] [address]- 4650 Jul, [facility] [place] [facility] [address] [id number] [place] 7798 Jun, [facility] [place] [facility] [address] [id number] [place] 9876 Jun, [facility] [place] [facility] [address] [id number] [place] [address]- 7439 Jun, [facility] [place] [facility] [address] [id number] [place] [address]- 0641 Jun, [facility] [place] [facility] [address] [id number] [place] [address]- 5691 Jun, [facility] [place] [facility] [address] [id number] [place] [address]- 8505 Jun, [facility] [place] [facility] [address] [id number] [place] [address] May, [facility] [place] [facility] [address] [id number] [place] [address] May, [facility] [place] [facility] [address] [id number] [place] [address] Apr, [facility] [place] [facility] [address] [id number] [place] [address] Apr, [facility] [place] [facility] [address] [id number] [place] [address] Apr, [facility] [place] [facility] [address] [id number] [place] [address] Apr, [facility] [place] [facility] [address] [id number] [place] [address] Mar, [facility] [place] [facility] [address] [id number] [place] [address] Mar, [facility] [place] [facility] [address] [id number] [place] [address] Mar, [facility] [place] [facility] [address] [id number] [place] [address] Mar, [facility] [place] [facility] [address] [id number] [place] [address] Mar, [facility] [place] [facility] [address] [id number] [place] [address] Mar, [facility] [place] [facility] [address] [id number] [place] [address] Mar, [facility] [place] [facility] [address] [id number] [place] [address] Mar, [facility] [place] [facility] [address] [id number] [place] [address] Feb, [facility] [place] [facility] [address] [id number] [place] [address] Feb, [facility] [place] [facility] [address] [id number] [place] [address] January, [facility] [place] [facility] [address] [id number] [place] [address] January, [facility] [place] [facility] [address] [id number] [place] [address] January, [facility] [place] [facility] [address] [id number] [place] [address] January, [facility] [place] [facility] [address] [id number] [place] [address] Dec, [facility] [place] [facility] [address] [id number] [place] [address] Dec, [facility] [place] [facility] [address] [id number] [place] [address] Dec, [facility] [place] [facility] [address] [id number] [place] [address] Dec, [facility] [place] [facility] [address] [id number] [place] [address] Nov, [facility] [place] [facility] [address] [id number] [place] [address] Nov, [facility] [place] [facility] [address] [id number] [place] [address] Sep, [facility] [place] [facility] [address] [id number] [place] [address] Sep, [facility] [place] [facility] [address] [id number] [place] [address] Sep, [facility] [address] [id number] [place] [address] Sep, [facility] [address] [id number] [place] [address] Sep, [facility] [address] [id number] [place] [address] Sep, [facility] [address] [id number] [place] [address] Aug, [facility] [address] [id number] [place] [address] Aug, [facility] [address] [id number] [place] [address] Aug, [facility] [address] [id number] [place] [address] Aug, [facility] [address] [id number] [place] [address] Jul, [facility] [address] [id number] [place] [address] Jul, [facility] [address] [id number] [place] [address] Jun, [facility] [address] [id number] [place] [address] Jun, [facility] [place] [facility] [address] [id number] [place] [address] Mar, [facility] [place] [facility] [address] [id number] [place] [address] January, [facility] [place] [facility] [address] [id number] [place] [address] Dec, [facility] [place] [facility] [address] [id number] [place] [address] Dec, [facility] [address] [facility] [id number], [place] [address] Nov, [facility] [address] [facility] [id number], [place] [address] Nov, [facility] [address] [facility] [id number], [place] [address] Oct, [facility] [address] [facility] [id number], [place] [address] January, [facility] [address] [facility] [id number], [place] [address] Dec, [facility] [address] [facility] [id number], [place] [address] Sep, IMMUNIZATIONS No Known Immunizations SOCIAL [...]
--- OUTSIDE RECORDS SUMMARY | 2018-08-12 07:08 | XMS REPORT ---
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 Name Role Phone MELANIE ESCOBAR Unavailable PROBLEMS Type Condition ICD9-CM Code RAY68-NR Code Onset Dates Condition Status SNOMED Code Problem Cervical disc disease M50.90 Active 740690626 Problem Anxiety disorder, unspecified F41.9 Active 908444459 Problem Gastroesophageal reflux disease, esophagitis presence not specified K21.9 Active 011701821 Problem Pulmonary emphysema, unspecified emphysema type J43.9 Active 77248813 Problem Chronic maxillary sinusitis J32.0 Active 95364075 Problem Prediabetes R73.03 Active 179238229 Problem Mixed hyperlipidemia E78.2 Active 041235807 Problem Right maxillary sinusitis J32.0 Active 81610425 Problem Sinusitis chronic, frontal J32.1 Active 60164622 Problem Hypertension I10 Active 42675757 Problem Reactive depression F32.9 Active 17854248 Problem Lumbago with sciatica, right side M54.41 Active 378502820 Problem Sciatica M54.30 Active 54785186 Problem Other chronic pain G89.29 Active 40792267 Problem PVCs (premature ventricular contractions) I49.3 Active 78357113 Problem Neck pain M54.2 Active 18296716 ALLERGIES No Known Allergies ENCOUNTERS Encounter Location Date Diagnosis [facility] [id number] [address] May, Elevated glucose R73.09 [facility] [address] [address] May, Elevated glucose R73.09 [facility] [id number] [address] May, Screening for breast cancer Z12.31 ; Well woman exam Z01.419 and Hypertension I10 [facility] [id number] [place] [address] 64658- 8411 10 May, 2018 Low back pain M54.5 [facility] [address] 26[address]- 2871 05 May, 2018 Low back pain M54.5 [facility] [address] 22363- 7177 Apr, [facility] [address] 42799- 8803 Apr, [facility] [address] 14346- 7993 Apr, Lumbago with sciatica, right side M54.41 ; Right maxillary sinusitis J32.0 ; Pulmonary emphysema, unspecified emphysema type J43.9 ; Hypertension I10 and Reactive depression F32.9 [facility] [address] [address]58- [address] Apr, [facility] [address] 41064- 8493 Apr, Low back pain M54.5 [facility] [address] 37894- 5492 Apr, Low back pain M54.5 [facility] [address] 6[address]16- 4614 Mar, Gastroesophageal reflux disease, esophagitis presence not specified K21.9 and Low back pain M54.5 [facility] [id number] [place] [address] 06251 -7583 Feb, Chronic maxillary sinusitis J32.0 [facility] [address] 77648- 3161 14 Feb, 2018 Low back pain M54.5 [facility] [address] 23064- 2459 Feb, Low back pain M54.5 [facility] [id number] [place] [address] 00443- 9754 Feb, Low back pain M54.5 [facility] [id number] [place] [address] 13960- 8628 January, [facility] [id number] [place] [address] 64229- 4648 January, Sinusitis chronic, frontal J32.1 [facility] [address] 36155- 5619 January, Lumbago with sciatica, right side M54.41 ; Cervical disc disease M50.90 ; Hypertension I10 and Gastroesophageal reflux disease, esophagitis presence not specified K21.9 [facility] [id number] [place] [address] 91785- 1059 Dec, Low back pain M54.5 [facility] [id number] [place] [address] 89529- 6917 Dec, Low back pain M54.5 [facility] [address] 13933- 0643 Nov, [facility] [id number] [place] [address] 32604 -3655 Nov, Right maxillary sinusitis J32.0 [facility] [id number] [place] [address] 50010- 1328 Nov, Low back pain M54.5 [facility] [id number] [place] [address] 59744 -2717 Oct, Sinusitis chronic, frontal J32.1 [facility] [id number] [place] [address] 46361- 4159 Oct, Neck pain M54.2 [facility] [id number] [place] [address] 23598- 2123 Sep, Low back pain M54.5 [facility] [address] 03630- 5337 Sep, Neck pain M54.2 [facility] [address] 79725- 2754 08 Sep, 2017 Lumbago with sciatica, right side M54.41 ; Hypertension I10 ; Bronchitis J40 and Anxiety disorder, unspecified F41.9 [facility] [address] 15693- 3756 Aug, Neck pain M54.2 and Low back pain M54.5 [facility] [address] 37360- 3550 16 Jul, 2017 Neck pain M54.2 and Low back pain M54.5 [facility] [address] 63480- 8488 Jul, Neck pain M54.2 [facility] [address] 48762- 8329 Jun, Low back pain M54.5 and Neck pain M54.2 [facility] [address] 27344- 1252 22 May, 2017 Low back pain M54.5 and Neck pain M54.2 [facility] [address] 87332- 4091 21 May, 2017 [facility] [address] 83257 -4290 14 May, 2017 Bronchitis J40 [facility] [address] 85774- 3497 11 Apr, 2017 Hyperglycemia R73.9 [facility] [address] 94009- 3595 08 Apr, 2017 Hyperglycemia R73.9 [facility] [address] 99089- 1484 Apr, Gastroesophageal reflux disease, esophagitis presence not specified K21.9 ; Mixed hyperlipidemia E78.2 ; Neck pain M54.2 and PVCs ( premature ventricular contractions) I49.3 [place] [address] 57249- 3546 Mar, Low back pain M54.5 [facility] [address] 38641- 2977 Feb, Low back pain M54.5 and Gastroesophageal reflux disease, esophagitis presence not specified K21.9 [facility] [address] 50167- 7105 January, Dyspnea on exertion R06.09 [place] [address] 47819- 5524 January, Hypertension I10 [place] [address] 88216- 6155 January, [facility] [address] 48964- 9173 January, Low back pain M54.5 [facility] [address] 16171- 3626 January, Low back pain M54.5 [place] [id number] [place] [address] 00010- 6009 January, Gastroesophageal reflux disease, esophagitis presence not specified K21.9 ; Lumbago with sciatica, right side M54.41 and Dyspnea on exertion R06.09 [facility] [id number] [place] [address] 73635- 0082 Nov, [facility] [address] 79959- 7731 Nov, [facility] [address] 84199- 6320 Nov, Gastroesophageal reflux disease, esophagitis presence not specified K21.9 and Bronchitis J40 [place] [id number] [place] [address] 40140- 4395 15 Oct, 2016 Low back pain M54.5 and Anxiety disorder, unspecified F41.9 [facility] [id number] [place] [address] 32437- 0712 10 Oct, 2016 Bronchitis J40 ; Hypertension I10 ; Sciatica M54.30 and Paresthesias R20.2 [facility] [address] [id number] Sep, Dental examination Z01.20 [facility] [address] [id number] Sep, Dental examination Z01.20 and Dental caries K02.9 [facility] [address] 05195- 3972 Aug, [facility] [address] 57676- 2050 Jul, Low back pain M54.5 and Anxiety disorder, unspecified F41.9 [facility] [id number] [place] [address] 13764- 3466 Jul, [facility] [address] 24791- 1823 Jun, Lumbago with sciatica, right side M54.41 ; Cervical disc disease M50.90 and Gastroesophageal reflux disease, esophagitis presence not specified K21.9 [facility] [id number] [place] [address] 63085- 6789 Jun, [facility] [id number] [place] [address] 02212- 6094 Jun, [facility] [address] 72391- 5182 Jun, [facility] [id number] [place] [address] 92927- 3879 Jun, [facility] [address] [place] [address]- 6869 Jun, [facility] [address] [address]- 3256 23 May, 2016 [facility] [address] [address]- 1042 16 May, 2016 [facility] [address] [place] [address] 97423- 1028 May, [facility] [id number] [place] [address] 69807- 9149 Apr, [facility] [address] [place] [address] 87125- 8841 Apr, [facility] [id number] [place] [address] 77770- 4800 Apr, [facility] [id number] [place] [address] 74515- 6340 Apr, Cervical disc disease M50.90 [facility] [address] [place] [address] 54847- 9878 Apr, [facility] [id number] [place] [address] 02198- 2978 Apr, Neck pain M54.2 ; Hypertension I10 and Reactive depression F32.9 [facility] [address] [address]- 9836 Mar, [facility] [id number] [address]- 0333 Mar, [facility] [address] [address]- 1809 Mar, [facility] [address] [place] [address] 74888- 4465 Feb, Sciatica M54.30 [facility] [address] [address]- 3869 Feb, Paresthesias R20.2 ; Sciatica M54.30 and Reactive depression F32.9 [facility] [id number] [place] [address] 01175- 6853 Feb, [facility] [address] 22058- 0754 January, [facility] [address] 48041- 1291 January, Hyperlipemia, mixed E78.2 ; Other abnormalities of heart beat R00.8 and Anxiety F41.9 [facility] [id number] [place] [address] 35157- 1458 January, [facility] [address] 76781- 7379 January, Low back pain M54.5 [place] [address] 58073- 8331 January, Anxiety disorder, unspecified F41.9 [facility] [address] 96287- 6426 18 Dec, 2015 Ventricular bigeminy I49.9 [facility] [id number] [place] [address] 36578- 8877 Dec, [facility] [id number] [place] [address] 94406- 3642 Dec, Low back pain M54.5 [facility] [address] 57499- 1965 Dec, Sciatica M54.30 [facility] [id number] [place] [address] 96043- 1422 Nov, Major depressive disorder, single episode, unspecified F32.9 [facility] [id number] [place] [address] 64805- 9820 14 Nov, 2015 Sciatica M54.30 [facility] [address] [place] [address]- 6911 14 Nov, 2015 [facility] [address] 64504- 8059 Nov, [facility] [address] 29819- 8045 Nov, Anxiety disorder, unspecified F41.9 [facility] [address] 93195- 9999 Nov, [facility] [address] 37188- 1943 Nov, Depressed F32.9 and Anxiety F41.9 [place] [address] 00847- 9593 Nov, Lumbago 724.2 ; Sciatica M54.30 and PVCs (premature ventricular contractions) I49.3 [facility] [address] 19613- 9729 Oct, [facility] [address] 42696- 7016 Oct, [facility] [address] 23535- 4271 Oct, Sciatica M54.30 and Hypertension I10 [facility] [id number] [place] [address] 18667- 4764 Oct, [facility] [address] 66270- 4505 Oct, [facility] [address] 30022- 5823 Oct, [facility] [address] 78117- 8194 Sep, [facility] [address] 76080- 8958 Sep, [facility] [id number] [place] [address] 93360- 3482 Sep, [facility] [id number] [place] [address] 45784- 9059 Sep, Ventricular arrhythmia I49.9 [facility] [id number] [place] [address] 79756- 1138 Sep, Ventricular bigeminy I49.9 and Hypertension I10 [facility] [id number] [place] [address] 12655- 1711 Sep, Lumbago M54.5 and Ventricular bigeminy I49.9 [facility] [id number] [place] [address], [place] [address]- 2894 Sep, [facility] [id number] [place] [address] 34820- 9305 Aug, [facility] [id number] [place] [address] 75887- 5704 Aug, [facility] [id number] [place] [address] 41782- 0019 Aug, [facility] [id number] [place] [address] 32700- 5952 Aug, [facility] [id number] [place] [address] 43607- 9178 Aug, [facility] [id number] [place] [address] 23073- 1037 Jul, [facility] [address] [place] [address] 57955- 7079 29 Jun, 2015 [facility] [id number] [place] [address] 24569- 4172 14 May, 2015 [facility] [id number] [place] [address] 45987- 2063 10 May, 2015 [facility] [id number] [place] [address] 11214- 5017 May, Lumbago 724.2 and Depressive disorder, not elsewhere classified 311 [facility] [id number] [address]- 0716 Apr, UTI (urinary tract infection) 599.0 [facility] [id number]- 6582 Apr, UTI (urinary tract infection) 599.0 and Depression 311 [facility] [address] [facility] [id number] [address]- 7259 Mar, [facility] [id number] [place] [address] 80554- 5258 Mar, [facility] [id number] [address]- 1707 Mar, [facility] [address] [place] [address] 56871- 9451 Mar, Unspecified essential hypertension 401.9 ; Lumbago 724.2 and Anxiety 300.00 [facility] [address] [address]- 9448 Mar, [facility] [id number] [address]- 3220 Feb, [facility] [id number] [address]- 6265 Feb, [facility] [id number] [address]- 7938 January, [facility] [id number] [address]- 6597 Dec, [facility] [id number] [address]- 8302 Dec, [facility] [id number] [address]- 2662 Oct, [facility] [id number] [address]- 4379 10 Oct, 2014 [facility] [place] [facility] [address] [id number] [place] [address]- 6592 Oct, [facility] [place] [facility] [address] [id number] [place] [address]- 6422 Oct, [facility] [place] [facility] [address] [id number] [place] [address]- 6192 Sep, [facility] [place] [facility] [address] [id number] [place] [address]- 7465 Sep, [facility] [place] [facility] [address] [id number] [place] [address]- 6263 Sep, [facility] [place] [facility] [address] [id number] [place] [address]- 4880 Sep, [facility] [place] [facility] [address] [id number] [place] [address]- 7789 Aug, [facility] [place] [facility] [address] [id number] [place] [address]- 9040 Aug, [facility] [place] [facility] [address] [id number] [place] [address]- 8258 Jul, [facility] [place] [facility] [address] [id number] [place] [address]- 6050 Jul, [facility] [place] [facility] [address] [id number] [place] [address]- 0953 Jun, [facility] [place] [facility] [address] [id number] [place] [address]- 3250 Jun, [facility] [place] [facility] [address] [id number] [place] [address]- 4042 Jun, [facility] [place] [facility] [address] [id number] [place] [address]- 0518 Jun, [facility] [place] [facility] [address] [id number] [place] [address]- 0001 Jun, [facility] [place] [facility] [address] [id number] [place] [address]- 5755 Jun, [facility] [place] [facility] [address] [id number] [place] [address]- 6663 May, [facility] [place] [facility] [address] [id number] [place] [address]- 7900 May, [facility] [place] [facility] [address] [id number] [place] [address]- 3940 Apr, [facility] [place] [facility] [address] [id number] [place] [address]- 2637 Apr, [facility] [place] [facility] [address] [id number] [place] [address]- 8003 Apr, [facility] [place] [facility] [address] [id number] [place] [address]- 9029 Apr, [facility] [place] [facility] [address] [id number] [place] [address]- 9460 Mar, [facility] [place] [facility] [address] [id number] [place] [address]- 0201 Mar, [facility] [place] [facility] [address] [id number] [place] [address]- 6733 Mar, [facility] [place] [facility] [address] [id number] [place] [address]- 5837 Mar, [facility] [place] [facility] [address] [id number] [place] [address]- 5226 Mar, [facility] [place] [facility] [address] [id number] [place] [address]- 3852 Mar, [facility] [place] [facility] [address] [id number] [place] [address]- 5489 Mar, [facility] [place] [facility] [address] [id number] [place] [address]- 8877 Mar, [facility] [place] [facility] [address] [id number] [place] [address]- 8586 Feb, [facility] [place] [facility] [address] [id number] [place] [address]- 7550 Feb, [facility] [place] [facility] [address] [id number] [place] 6963 January, [facility] [place] [facility] [address] [id number] [place] [address]- 3904 January, [facility] [place] [facility] [address] [id number] [place] 8369 January, [facility] [place] [facility] [address] [id number] [place] [address]- 1455 January, [facility] [place] [facility] [address] [id number] [place] [address] Dec, [facility] [place] [facility] [address] [id number] [place] [address] Dec, [facility] [place] [facility] [address] [id number] [place] [address] Dec, [facility] [place] [facility] [address] [id number] [place] [address] Dec, [facility] [place] [facility] [address] [id number] [place] [address] Nov, [facility] [place] [facility] [address] [id number] [place] [address] Nov, [facility] [place] [facility] [address] [id number] [place] [address] Sep, [facility] [place] [facility] [address] [id number] [place] [address] Sep, [facility] [place] [facility] [address] [id number] [place] [address] Sep, [facility] [place] [facility] [address] [id number] [place] [address] Sep, [facility] [place] [facility] [address] [id number] [place] [address] 13 Sep, 2013 [facility] [address] [id number] [place] [address] Sep, [facility] [address] [id number] [place] [address] Aug, [facility] [address] [id number] [place] [address] Aug, [facility] [address] [id number] [place] [address] Aug, [facility] [address] [id number] [place] [address] Aug, [facility] [address] [id number] [place] [address] Jul, [facility] [address] [id number] [place] [address] Jul, [facility] [address] [id number] [place] [address] Jun, [facility] [address] [id number] [place] [address] Jun, [facility] [address] [id number] [place] [address] Mar, [facility] [address] [id number] [place] [address] January, [facility] [address] [id number] [place] [address] Dec, [facility] [place] [facility] [address] [id number] [place] [address] Dec, [facility] [address] [id number] [place] [address] Nov, [facility] [address] [id number] [place] [address] Nov, [facility] [address] [facility] [id number] [address] Oct, [facility] [address] [facility] [id number] [address] January, [facility] [address] [facility] [id number] [place] [address] Dec, [facility] [address] [facility] [id number] [address] Sep, IMMUNIZATIONS No Known Immunizations SOCIAL HISTORY Never Assessed REASON FOR VISIT Well Woman [facility] PLAN OF CARE Activity Details Follow Up 1 Year Reason: VITAL SIGNS Height 62 in 2018-05-19 Weight 174.8 lbs 2018-05-19 Temperature 100.0 degrees Fahrenheit 2018-05-19 Heart Rate 110 bpm 2018-05-19 Respiratory Rate 20 2018-05-19 BMI 31.97 kg/m2 2018-05-19 Blood pressure systolic 124 mmHg 2018-05-19 Blood pressure diastolic 78 mmHg 2018-05-19 MEDICATIONS Medication Instructions Dosage Frequency Start Date End Date Duration Status Gabapentin 600 mg Orally 2 times a day 1 tablet 12h Active Lipitor 10 MG Orally Once a day 1 tablet 24h Active C-PAP Machine Active Tramadol HCl 50MG Orally, each fill must last 30 days every 6 hours 1 tablet 6h 28 days Active Zoloft 50MG Orally Once a day 1 tablet 24h Active Diazepam 5MG Orally, each fill must last 30 days Twice a day 1 tablet as needed 12h 28 days Active Protonix 40 mg Orally twice a day 1 tablet 12h Nov, 30 day(s) Active ProAir HFA 108 (90 Base) MCG/ACT Inhalation every 4 hrs 2 puffs as needed 4h 14 May, 2017 5 days Active Metoprolol Succinate ER 50MG TAKE ONE TABLET BY MOUTH ONCE DAILY 90 Active Carafate 1 GM Orally 4 times a day 1 tablet 6h Active Cyclobenzaprine HCl 10MG Orally Three times a day 1 tablet 8h 90 Active Flonase 50 MCG/ACT Nasally twice a day 1 spray in each nostril 12h Oct, 30 days Active RESULTS No Results PROCEDURES Procedure Date Ordered Result Body Site COMPREHEN METABOLIC PANEL May 19, 2018 LIPID PANEL May 19, 2018 ASSAY THYROID STIM HORMONE May 19, 2018 INSTRUCTIONS MEDICATIONS ADMINISTERED No Known Medications [...]
--- OUTSIDE RECORDS SUMMARY | 2018-08-12 07:08 | XMS REPORT ---
Author Author JOHANNY KINNEY Organization [facility] Address [address] [place] [address] Care Team Providers Care Tissue Coordinator Name Role Phone JOHANNY KINNEY Unavailable PROBLEMS Type Condition ICD9-CM Code [id number] Code Onset Dates Condition Status SNOMED Code Problem Cervical disc disease M50.90 Active 666588653 Problem Anxiety disorder, unspecified F41.9 Active 513939205 Problem Gastroesophageal reflux disease, esophagitis presence not specified K21.9 Active 690325314 Problem Pulmonary emphysema, unspecified emphysema type J43.9 Active 11550950 Problem Chronic maxillary sinusitis J32.0 Active 21636198 Problem Prediabetes R73.03 Active 480179613 Problem Mixed hyperlipidemia E78.2 Active 952751679 Problem Right maxillary sinusitis J32.0 Active 64552697 Problem Sinusitis chronic, frontal J32.1 Active 04207716 Problem Hypertension I10 Active 21313706 Problem Reactive depression F32.9 Active 98450574 Problem Lumbago with sciatica, right side M54.41 Active 973207163 Problem Sciatica M54.30 Active 26389554 Problem Other chronic pain G89.29 Active 30593977 Problem PVCs (premature ventricular contractions) I49.3 Active 13433941 Problem Neck pain M54.2 Active 36532076 ALLERGIES No Information ENCOUNTERS Encounter Location Date Diagnosis [facility] [id number] [address] May, Elevated glucose R73.09 [facility] [address], [place] [address] 18 May, 2018 Elevated glucose R73.09 [facility] [id number], [place] [address] 8[address] May, Screening for breast cancer Z12.31 ; Well woman exam Z01.419 and Hypertension I10 [facility] [id number] [place] [address] 20427- 0177 10 May, 2018 Low back pain M54.5 [facility] [address] 08697- 7421 05 May, 2018 Low back pain M54.5 [facility] [address] 06130- 5414 Apr, [facility] [address] 61174- 6436 Apr, [facility] [address] 21737- 7856 Apr, Lumbago with sciatica, right side M54.41 ; Right maxillary sinusitis J32.0 ; Pulmonary emphysema, unspecified emphysema type J43.9 ; Hypertension I10 and Reactive depression F32.9 [facility] [address] [address]- 8993 Apr, [facility] [address] 15129- 6398 Apr, Low back pain M54.5 [facility] [address] 70052- 8993 Apr, Low back pain M54.5 [facility] [id number] [place] [address] 26262- 6266 Mar, Gastroesophageal reflux disease, esophagitis presence not specified K21.9 and Low back pain M54.5 [facility] [id number] [place] [address] 22279 -4209 Feb, Chronic maxillary sinusitis J32.0 [facility] [id number] [place] [address] 43515- 0281 Feb, Low back pain M54.5 [facility] [id number] [place] [address] 82306- 4427 Feb, Low back pain M54.5 [facility] [id number] [place] [address] 47071- 8835 Feb, Low back pain M54.5 [facility] [id number] [place] [address] 76053- 5303 January, [facility] [id number] [place] [address] 50590- 1982 January, Sinusitis chronic, frontal J32.1 [facility] [id number] [place] [address] 42768- 7319 January, Lumbago with sciatica, right side M54.41 ; Cervical disc disease M50.90 ; Hypertension I10 and Gastroesophageal reflux disease, esophagitis presence not specified K21.9 [facility] [id number] [place] [address] 96667- 3912 Dec, Low back pain M54.5 [facility] [id number] [place] [address] 52326- 4761 Dec, Low back pain M54.5 [facility] [id number] [place] [address] 16437- 4735 Nov, [facility] [id number] [place] [address] 98279 -1628 Nov, Right maxillary sinusitis J32.0 [facility] [id number] [place] [address] 95111- 2636 Nov, Low back pain M54.5 [facility] [id number] [place] [address] 17692 -1731 Oct, Sinusitis chronic, frontal J32.1 [facility] [id number] [place] [address] 61870- 3328 Oct, Neck pain M54.2 [facility] [id number] [place] [address] 23588- 0870 Sep, Low back pain M54.5 [facility] [address] 49524- 8527 Sep, Neck pain M54.2 [facility] [address] 94169- 5984 Sep, Lumbago with sciatica, right side M54.41 ; Hypertension I10 ; Bronchitis J40 and Anxiety disorder, unspecified F41.9 [facility] [address] 35941- 2102 Aug, Neck pain M54.2 and Low back pain M54.5 [facility] [address] 35777- 9241 16 Jul, 2017 Neck pain M54.2 and Low back pain M54.5 [facility] [address] 01029- 2796 Jul, Neck pain M54.2 [facility] [address] 03559- 7700 Jun, Low back pain M54.5 and Neck pain M54.2 [facility] [address] 46116- 6469 May, Low back pain M54.5 and Neck pain M54.2 [facility] [address] 23377- 0645 May, [facility] [address] 37516 -7193 14 May, 2017 Bronchitis J40 [facility] [address] 63575- 6686 Apr, Hyperglycemia R73.9 [facility] [address] 58626- 9862 08 Apr, 2017 Hyperglycemia R73.9 [facility] [address] 73579- 1889 07 Apr, 2017 Gastroesophageal reflux disease, esophagitis presence not specified K21.9 ; Mixed hyperlipidemia E78.2 ; Neck pain M54.2 and PVCs ( premature ventricular contractions) I49.3 [facility] [address] 97830- 5244 Mar, Low back pain M54.5 [facility] [address] 51092- 4915 Feb, Low back pain M54.5 and Gastroesophageal reflux disease, esophagitis presence not specified K21.9 [facility] [address] 98896- 2020 January, Dyspnea on exertion R06.09 [facility] [address] 25325- 7624 January, Hypertension I10 [facility] [address] 70398- 9868 January, [facility] [address] 55240- 9473 January, Low back pain M54.5 [facility] [address] 21316- 4542 January, Low back pain M54.5 [facility] [id number] [place] [address] 58414- 7009 January, Gastroesophageal reflux disease, esophagitis presence not specified K21.9 ; Lumbago with sciatica, right side M54.41 and Dyspnea on exertion R06.09 [facility] [id number] [place] [address] 75161- 7454 Nov, [facility] [address] 15462- 8459 Nov, [facility] [id number] [place] [address] 21563- 7975 Nov, Gastroesophageal reflux disease, esophagitis presence not specified K21.9 and Bronchitis J40 [facility] [id number] [place] [address] 68330- 0949 15 Oct, 2016 Low back pain M54.5 and Anxiety disorder, unspecified F41.9 [facility] [address] 75732- 6877 10 Oct, 2016 Bronchitis J40 ; Hypertension I10 ; Sciatica M54.30 and Paresthesias R20.2 [facility] [address] [id number] Sep, Dental examination Z01.20 [facility] [address] [id number] Sep, Dental examination Z01.20 and Dental caries K02.9 [facility] [address] 16359- 3675 Aug, [facility] [address] 07198- 3319 Jul, Low back pain M54.5 and Anxiety disorder, unspecified F41.9 [facility] [address] 25372- 3330 Jul, [facility] [address] 49488- 3041 Jun, Lumbago with sciatica, right side M54.41 ; Cervical disc disease M50.90 and Gastroesophageal reflux disease, esophagitis presence not specified K21.9 [facility] [id number] [place] [address] 14345- 5342 Jun, [facility] [address] 22421- 4085 Jun, [facility] [address] 90076- 8404 Jun, [facility] [id number] [place] [address] 35073- 3328 Jun, [facility] [address] 23502- 7567 Jun, [facility] [address], [place] [address]- 4958 May, [facility] [id number] [place] [address] 43751- 6179 May, [facility] [id number] [place] [address] 52267- 2132 May, [facility] [id number] [place] [address] 77168- 2379 Apr, [facility] [id number] [place] [address] 48891- 1519 Apr, [facility] [id number] [place] [address] 43968- 4764 Apr, [facility] [id number] [place] [address] 25600- 2480 Apr, Cervical disc disease M50.90 [facility] [id number] [place] [address] 70934- 6453 Apr, [facility] [id number] [place] [address] 67062- 2483 Apr, Neck pain M54.2 ; Hypertension I10 and Reactive depression F32.9 [facility] [address], [place] [address]- 3837 Mar, [facility] [id number] [place] [address] 22324- 9613 Mar, [facility] [address], [place] [address]- 0800 Mar, [facility] [id number] [place] [address] 81866- 7172 Feb, Sciatica M54.30 [facility] [address], [place] [address]- 5303 Feb, Paresthesias R20.2 ; Sciatica M54.30 and Reactive depression F32.9 [facility] [id number] [place] [address] 09684- 9316 Feb, [facility] [address] 52230- 5769 January, [facility] [address] 32698- 4213 January, Hyperlipemia, mixed E78.2 ; Other abnormalities of heart beat R00.8 and Anxiety F41.9 [facility] [address] 34705- 0523 January, [address] 59701- 2561 January, Low back pain M54.5 [place] [address] 73706- 0274 January, Anxiety disorder, unspecified F41.9 [facility] [id number] [place] [address] 56370- 1899 18 Dec, 2015 Ventricular bigeminy I49.9 [address] [address] 34210- 6969 Dec, [facility] [id number] [place] [address] 44267- 2245 Dec, Low back pain M54.5 [facility] [id number] [place] [address] 78696- 8178 Dec, Sciatica M54.30 [facility] [id number] [place] [address] 25475- 2592 Nov, Major depressive disorder, single episode, unspecified F32.9 [facility] [id number] [place] [address] 21053- 1252 14 Nov, 2015 Sciatica M54.30 [facility] [address] 39669- 0456 14 Nov, 2015 [facility] [id number] [place] [address] 92908- 9083 Nov, [facility] [id number] [place] [address] 54375- 2972 Nov, Anxiety disorder, unspecified F41.9 [facility] [id number] [place] [address] 73608- 5664 Nov, [facility] [id number] [place] [address] 60791- 4538 Nov, Depressed F32.9 and Anxiety F41.9 [facility] [address] 74681- 8660 Nov, Lumbago 724.2 ; Sciatica M54.30 and PVCs (premature ventricular contractions) I49.3 [facility] [id number] [place] [address] 90026- 8034 Oct, [facility] [id number] [place] [address] 20492- 1853 Oct, [facility] [id number] [place] [address] 64782- 5569 Oct, Sciatica M54.30 and Hypertension I10 [facility] [id number] [place] [address] 63059- 0418 Oct, [facility] [id number] [place] [address] 88833- 4652 Oct, [facility] [id number] [place] [address] 76944- 8444 Oct, [facility] [id number] [place] [address] 97503- 9235 Sep, [facility] [id number] [place] [address] 54806- 3763 Sep, [facility] [address] [place] [address]- 1852 Sep, [facility] [id number] [place] [address] 41930- 7794 Sep, Ventricular arrhythmia I49.9 [facility] [id number] [place] [address], [place] [address]- 8086 Sep, Ventricular bigeminy I49.9 and Hypertension I10 [facility] [id number] [place] [address] 65208- 3396 Sep, Lumbago M54.5 and Ventricular bigeminy I49.9 [facility] [id number] [place] [address], [place] [address]- 9202 Sep, [facility] [id number] [place] [address] 28156- 0586 Aug, [facility] [id number] [place] [address], [place] [address]- 2195 Aug, [facility] [id number] [place] [address] 74755- 0938 Aug, [facility] [id number] [place] [address], [place] [address]- 3747 Aug, [facility] [address], [place] [address]- 3124 Aug, [facility] [id number] [place] [address] 16091- 2845 Jul, [facility] [address], [place] [address]- 7710 Jun, [facility] [id number] [place] [address], [place] [address]- 9702 14 May, 2015 [facility] [address], [place] [address]- 3879 May, [facility] [id number] [place] [address] 862111- 1912 May, Lumbago 724.2 and Depressive disorder, not elsewhere classified 311 [facility] [address], [place] [address]- 7875 Apr, UTI (urinary tract infection) 599.0 [facility] [address] 4384 Apr, UTI (urinary tract infection) 599.0 and Depression 311 [facility] [address], [place] [address]- 4275 Mar, [facility] [address], [place] [address]- 1097 Mar, [facility] [id number] [place] [address] 27017- 9989 Mar, [facility] [id number] [place] [address] 52048- 4374 Mar, Unspecified essential hypertension 401.9 ; Lumbago 724.2 and Anxiety 300.00 [facility] [address], [place] [address]- 5763 Mar, [facility] [address], [place] [address]- 9353 Feb, [facility] [address] [place] [address]- 1792 Feb, [facility] [address], [place] [address]- 2649 January, [facility] [id number], [place] [address]- 4325 Dec, [facility] [address], [place] [address]- 7635 Dec, [facility] [id number], [place] [address]- 1371 Oct, [facility] [address], [place] [address]- 9315 Oct, [facility] [place] [facility] [address] [id number] [place] [address]- 7984 Oct, [facility] [place] [facility] [address] [id number] [place] [address]- 2781 Oct, [facility] [place] [facility] [address] [id number] [place] [address]- 9195 Sep, [facility] [place] [facility] [address] [id number] [place] [address]- 2133 Sep, [facility] [place] [facility] [address] [id number] [place] [address]- 9384 Sep, [facility] [place] [facility] [address] [id number] [place] [address]- 4228 Sep, [facility] [place] [facility] [address] [facility] [id number] [place] [address]- 0908 Aug, [facility] [place] [facility] [address] [id number] [place] [address]- 2558 Aug, [facility] [place] [facility] [address] [facility] [id number] [place] [address]- 0130 Jul, [facility] [place] [facility] [address] [facility] [id number] [place] [address]- 6337 Jul, [facility] [place] [facility] [address] [id number] [address]- 4676 Jun, [facility] [place] [facility] [address] [id number], [place] [address]- 2499 Jun, [facility] [place] [facility] [address] [id number] [place] [address]- 0544 Jun, [facility] [place] [facility] [address] [id number] [place] [address]- 0372 Jun, [facility] [place] [facility] [address] [facility] [id number] [place] [address]- 1744 Jun, [facility] [place] [facility] [address] [id number] [place] [address]- 0190 Jun, [facility] [place] [facility] [address] [id number] [place] [address]- 8167 May, [facility] [place] [facility] [address] [id number] [place] [address]- 0086 May, [facility] [place] [facility] [address] [id number] [place] [address]- 6706 Apr, [facility] [place] [facility] [address] [id number] [place] [address]- 6686 Apr, [facility] [place] [facility] [address] [id number] [place] [address]- 6080 Apr, [facility] [place] [facility] [address] [id number] [place] [address]- 0175 Apr, [facility] [place] [facility] [address] [id number] [place] [address]- 7153 Mar, [facility] [place] [facility] [address] [id number] [place] [address]- 2712 Mar, [facility] [place] [facility] [address] [id number] [place] [address]- 9110 Mar, [facility] [place] [facility] [address] [id number] [place] [address]- 8387 Mar, [facility] [place] [facility] [address] [id number] [place] [address]- 0762 Mar, [facility] [place] [facility] [address] [id number] [place] [address]- 0008 Mar, [facility] [place] [facility] [address] [id number] [place] [address]- 0476 Mar, [facility] [place] [facility] [address] [id number] [place] [address]- 7796 Mar, [facility] [place] [facility] [address] [id number] [place] [address]- 5198 Feb, [facility] [place] [facility] [address] [id number] [place] [address]- 9746 Feb, [facility] [place] [facility] [address] [id number] [place] [address]- 6750 January, [facility] [place] [facility] [address] [id number] [place] [address] January, [facility] [place] [facility] [address] [id number] [place] [address] January, [facility] [place] [facility] [address] [id number] [place] [address] January, [facility] [place] [facility] [address] [id number] [place] [address] Dec, [facility] [place] [facility] [address] [id number] [place] [address] Dec, [facility] [place] [facility] [address] [id number] [place] [address] Dec, [facility] [place] [facility] [address] [id number] [place] [address] Dec, [facility] [place] [facility] [address] [id number] [place] [address] Nov, [facility] [place] [facility] [address] [id number] [place] [address] Nov, [facility] [place] [facility] [address] [id number] [place] [address] Sep, [facility] [place] [facility] [address] [id number] [place] [address] Sep, [facility] [place] [facility] [address] [id number] [place] [address] Sep, [facility] [place] [facility] [address] [id number] [place] [address] Sep, [facility] [place] [facility] [address] [id number] [place] [address] 13 Sep, 2013 [facility] [address] [id number] [place] [address] Sep, [facility] [place] [facility] [address] [id number] [place] [address] Aug, [facility] [address] [id number] [place] [address] Aug, [facility] [place] [facility] [address] [id number] [place] [address] Aug, [facility] [address] [id number] [place] [address] Aug, [facility] [place] [facility] [address] [id number] [place] [address] Jul, [facility] [address] [id number] [place] [address] Jul, [facility] [address] [id number] [place] [address] Jun, [facility] [address] [id number] [place] [address] Jun, [facility] [address] [id number] [place] [address] Mar, [facility] [address] [id number] [place] [address] January, [facility] [place] [facility] [address] [id number] [place] [address] Dec, [facility] [place] [facility] [address] [id number] [place] [address] Dec, [facility] [place] [facility] [address] [id number] [place] [address] Nov, [facility] [place] [facility] [address] [id number] [place] [address] Nov, [facility] [address] [facility] [id number], [place] [address] Oct, [facility] [address] [facility] [id number], [place] [address] January, [facility] [address] [facility] [id number], [place] [address] Dec, [facility] [address] [facility] [id number], [place] [address] Sep, IMMUNIZATIONS No Known Immunizations SOCIAL HISTORY Never Assessed REASON FOR VISIT Medication refill request/question PLAN OF CARE VITAL SIGNS MEDICATIONS Medication Instructions Dosage Frequency Start Date End Date Duration Status Gabapentin 600 mg Orally 2 times a day 1 tablet 12h Active Tramadol HCl 50MG Orally, each fill [...]
--- OUTSIDE RECORDS SUMMARY | 2018-08-12 07:09 | XMS REPORT ---
Author Author JOHANNY KINNEY Organization [facility] Address [address] [place] [address] Care Team Providers Care Callisthenics Instructor Name Role Phone JOHANNY KINNEY Unavailable PROBLEMS Type Condition ICD9-CM Code [id number] Code Onset Dates Condition Status SNOMED Code Problem Cervical disc disease M50.90 Active 066863296 Problem Anxiety disorder, unspecified F41.9 Active 224399769 Problem Gastroesophageal reflux disease, esophagitis presence not specified K21.9 Active 709149634 Problem Pulmonary emphysema, unspecified emphysema type J43.9 Active 49068750 Problem Chronic maxillary sinusitis J32.0 Active 92633130 Problem Prediabetes R73.03 Active 112395140 Problem Mixed hyperlipidemia E78.2 Active 924823089 Problem Right maxillary sinusitis J32.0 Active 69284452 Problem Sinusitis chronic, frontal J32.1 Active 98594796 Problem Hypertension I10 Active 94633275 Problem Reactive depression F32.9 Active 35770033 Problem Lumbago with sciatica, right side M54.41 Active 962319690 Problem Sciatica M54.30 Active 14837542 Problem Other chronic pain G89.29 Active 58719968 Problem PVCs (premature ventricular contractions) I49.3 Active 30630910 Problem Neck pain M54.2 Active 60107898 ALLERGIES No Information ENCOUNTERS Encounter Location Date Diagnosis [facility] [id number], [place] [address] 18 May, [address] [facility] [id number] [place] [address] 65844- 1824 11 May, 2018 Screening for breast cancer Z12.31 ; Well woman exam Z01.[address] [facility] [id number], [place] [address] 10 May, 2018 Low back pain M54.5 [facility] [id number] [place] [address] 01429- 7152 May, Low back pain M54.5 [facility] [id number] [place] [address] 67940- 2671 Apr, [facility] [id number] [place] [address] 89094- 0112 Apr, [facility] [address] 61130- 2414 Apr, Lumbago with sciatica, right side M54.41 ; Right maxillary sinusitis J32.0 ; Pulmonary emphysema, unspecified emphysema type J43.9 ; Hypertension I10 and Reactive depression F32.9 [facility] [id number] [place] [address] 06215- 3747 Apr, [facility] [address] 49222- 7045 Apr, Low back pain M54.5 [facility] [id number] [place] [address] 30984- 0110 Apr, Low back pain M54.5 [facility] [id number] [place] [address] 30633- 7493 Mar, Gastroesophageal reflux disease, esophagitis presence not specified K21.9 and Low back pain M54.5 [facility] [id number] [place] [address] 71709 -8876 Feb, Chronic maxillary sinusitis J32.0 [facility] [id number] [place] [address] 24586- 8515 Feb, Low back pain M54.5 [facility] [id number] [place] [address] 31680- 9446 Feb, Low back pain M54.5 [facility] [id number] [place] [address] 59627- 7551 Feb, Low back pain M54.5 [facility] [id number] [place] [address] 71321- 5651 January, [facility] [id number] [place] [address] 03219- 2553 January, Sinusitis chronic, frontal J32.1 [facility] [id number] [place] [address] 52705- 3186 January, Lumbago with sciatica, right side M54.41 ; Cervical disc disease M50.90 ; Hypertension I10 and Gastroesophageal reflux disease, esophagitis presence not specified K21.9 [facility] [address] 20760- 9143 Dec, Low back pain M54.5 [facility] [id number] [place] [address] 40410- 7189 Dec, Low back pain M54.5 [facility] [address] 50636- 6634 Nov, [facility] [id number] [place] [address] 93484 -0175 Nov, Right maxillary sinusitis J32.0 [facility] [id number] [place] [address] 12690- 3208 Nov, Low back pain M54.5 [facility] [id number] [place] [address] 07861 -9027 Oct, Sinusitis chronic, frontal J32.1 [facility] [id number] [place] [address] 80193- 2662 Oct, Neck pain M54.2 [facility] [id number] [place] [address] 16111- 2843 Sep, Low back pain M54.5 [facility] [id number] [place] [address] 82477- 8022 Sep, Neck pain M54.2 [facility] [id number] [place] [address] 79892- 9679 08 Sep, 2017 Lumbago with sciatica, right side M54.41 ; Hypertension I10 ; Bronchitis J40 and Anxiety disorder, unspecified F41.9 [place] [address] 59188- 1718 13 Aug, 2017 Neck pain M54.2 and Low back pain M54.5 [place] [address] 67710- 0212 16 Jul, 2017 Neck pain M54.2 and Low back pain M54.5 [place] [address] 59036- 9989 06 Jul, 2017 Neck pain M54.2 [place] [address] 49976- 5213 Jun, Low back pain M54.5 and Neck pain M54.2 [place] [address] 02818- 9527 May, Low back pain M54.5 and Neck pain M54.2 [place] [address] 73100- 3492 21 May, 2017 [facility] [address] 79591 -2807 14 May, 2017 Bronchitis J40 [address] [address] 52504- 3406 Apr, Hyperglycemia R73.9 [place] [address] 63712- 0628 08 Apr, 2017 Hyperglycemia R73.9 [place] [address] 47619- 4293 07 Apr, 2017 Gastroesophageal reflux disease, esophagitis presence not specified K21.9 ; Mixed hyperlipidemia E78.2 ; Neck pain M54.2 and PVCs ( premature ventricular contractions) I49.3 [place] [id number] [place] [address] 88270- 1404 Mar, Low back pain M54.5 [facility] [id number] [place] [address] 61876- 2902 Feb, Low back pain M54.5 and Gastroesophageal reflux disease, esophagitis presence not specified K21.9 [facility] [id number] [place] [address] 10326- 9898 January, Dyspnea on exertion R06.09 [facility] [id number] [place] [address] 97532- 0532 January, Hypertension I10 [facility] [address] 86683- 1765 January, [facility] [id number] [place] [address] 23093- 5965 January, Low back pain M54.5 [facility] [id number] [place] [address] 82509- 0903 January, Low back pain M54.5 [facility] [id number] [place] [address] 52110- 9911 January, Gastroesophageal reflux disease, esophagitis presence not specified K21.9 ; Lumbago with sciatica, right side M54.41 and Dyspnea on exertion R06.09 [facility] [id number] [place] [address] 45222- 2231 Nov, [facility] [id number] [place] [address] 62407- 7249 Nov, [facility] [id number] [place] [address] 39964- 2675 Nov, Gastroesophageal reflux disease, esophagitis presence not specified K21.[address] [facility] [id number] [place] [address] 62194- 6383 Oct, Low back pain M54.5 and Anxiety disorder, unspecified F41.9 [facility] [id number] [place] [address] 83911- 3198 10 Oct, 2016 Bronchitis J40 ; Hypertension I10 ; Sciatica M54.30 and Paresthesias R20.2 [facility] [id number] [place] [address] [id number] Sep, Dental examination Z01.20 [facility] [id number] [place] [address] [phone] Sep, Dental examination Z01.20 [address] Dental caries K02.9 [facility] [address] 01566- 2676 Aug, [facility] [id number] [place] [address] 04912- 1585 Jul, Low back pain M54.5 and Anxiety disorder, unspecified F41.9 [facility] [id number] [place] [address] 31025- 9838 Jul, [facility] [id number] [place] [address] 76197- 2540 Jun, Lumbago with sciatica, right side M54.41 ; Cervical disc disease M50.90 and Gastroesophageal reflux disease, esophagitis presence not specified K21.9 [facility] [id number] [place] [address] 88361- 8897 Jun, [facility] [id number] [place] [address] 84559- 2994 Jun, [facility] [id number] [place] [address] 64184- 2006 Jun, [facility] [id number] [place] [address] 00624- 6408 Jun, [facility] [id number] [place] [address] 38516- 9960 Jun, [facility] [id number] [place] [address] 97785- 0117 May, [facility] [id number] [place] [address] 22654- 3307 May, [facility] [id number] [place] [address] 15468- 7756 May, [facility] [id number] [place] [address] 47864- 0926 Apr, [facility] [id number] [place] [address] 64092- 6845 Apr, [facility] [id number] [place] [address] 08047- 3286 Apr, [facility] [id number] [place] [address] 45771- 3960 Apr, Cervical disc disease M50.90 [facility] [id number] [place] [address] 88557- 8552 Apr, [facility] [id number] [place] [address] 70918- 6452 Apr, Neck pain M54.2 ; Hypertension I10 and Reactive depression F32.9 [facility] [id number] [place] [address] 07123- 5753 Mar, [facility] [id number] [place] [address] 78300- 2937 Mar, [facility] [id number] [place] [address] 50701- 8014 Mar, [facility] [id number] [place] [address] 91507- 8530 Feb, Sciatica M54.30 [facility] [id number] [place] [address] 44103- 6235 Feb, Paresthesias R20.2 ; Sciatica M54.30 and Reactive depression F32.9 [facility] [id number] [place] [address] 40753- 0041 Feb, [facility] [id number] [place] [address] 93747- 6152 January, [facility] [id number] [place] [address] 39616- 4410 January, Hyperlipemia, mixed E78.2 ; Other abnormalities of heart beat R00.[address] [facility] [address] 66768- 6318 January, [facility] [id number] [place] [address] 42517- 2384 January, Low back pain M54.5 [facility] [id number] [place] [address] 13081- 2320 January, Anxiety disorder, unspecified F41.9 [facility] [id number] [place] [address] 70421- 1441 Dec, Ventricular bigeminy I49.9 [facility] [id number] [place] [address] 15958- 9917 Dec, [facility] [id number] [place] [address] 32197- 7440 Dec, Low back pain M54.5 [facility] [id number] [place] [address] 68737- 0460 Dec, Sciatica M54.30 [facility] [id number] [place] [address] 82133- 1282 Nov, Major depressive disorder, single episode, unspecified F32.9 [facility] [id number] [place] [address] 57333- 2783 Nov, Sciatica M54.30 [facility] [id number] [place] [address] 32864- 2467 Nov, [facility] [id number] [place] [address] 70910- 6178 Nov, [facility] [id number] [place] [address] 59575- 2754 Nov, Anxiety disorder, unspecified F41.9 [facility] [id number] [place] [address] 47683- 2352 Nov, [facility] [id number] [place] [address] 26671- 4465 Nov, Depressed F32.[address] [facility] [address] 80667- 9977 Nov, Lumbago 724.2 ; Sciatica M54.30 and PVCs (premature ventricular contractions) I49.3 [facility] [id number] [place] [address] 24447- 5082 Oct, [facility] [address] 77592- 0693 Oct, [facility] [id number] [place] [address] 86408- 0682 Oct, Sciatica M54.[address] [facility] [id number] [place] [address] 72964- 3401 Oct, [facility] [id number] [place] [address] 03616- 4532 Oct, [facility] [id number] [place] [address] 85434- 1600 Oct, [facility] [id number] [place] [address] 23175- 9773 Sep, [facility] [address] 17341- 2721 Sep, [facility] [id number] [place] [address] 88233- 3616 Sep, [facility] [address] 92757- 2260 Sep, Ventricular arrhythmia I49.9 [facility] [id number] [place] [address] 31270- 4694 Sep, Ventricular bigeminy I49.[address] [facility] [id number] [place] [address] 62820- 5643 Sep, Lumbago M54.5 and Ventricular bigeminy I49.9 [facility] [id number] [place] [address] 97232- 9676 Sep, [facility] [id number] [place] [address] 18223- 8780 Aug, [facility] [id number] [place] [address] 20394- 1708 Aug, [facility] [id number] [place] [address] 54394- 2026 Aug, [facility] [id number] [place] [address] 63217- 1109 Aug, [facility] [id number] [place] [address] 24467- 8802 Aug, [facility] [id number] [place] [address] 33020- 4621 Jul, [facility] [id number] [place] [address] 42065- 6899 Jun, [facility] [address], [place] [address]- 8139 [address], [address] [facility] [id number] [place] [address] 44196- 5465 May, [facility] [id number] [place] [address] 70076- 4205 May, Lumbago 724.2 and Depressive disorder, not elsewhere classified 311 [facility] [id number] [place] [address] 23701- 6246 Apr, UTI (urinary tract infection) 599.0 [facility] [id number] [address]- 9497 Apr, UTI (urinary tract infection) 599.[address] [facility] [address] [place] [address]- 9527 Mar, [facility] [address] [address] 4398 Mar, [facility] [address] 1830 Mar, [facility] [address]- 1754 Mar, Unspecified essential hypertension 401.9 ; Lumbago 724.[address] [facility] [address] [place] [address]- 8306 Mar, [facility] [address] [address]- 1618 Feb, [facility] [address] [address]- 4216 Feb, [facility] [id number] [address] 8694 January, [facility] [id number] [address]- 6909 Dec, [facility] [id number] [address]- 2177 Dec, [facility] [id number] [address]- 8243 Oct, [facility] [id number] [address]- 6566 Oct, [facility] [id number] [address]- 0489 Oct, [facility] [place] [facility] [address] [id number] [place] [address]- 1631 Oct, [facility] [place] [facility] [address] [id number] [place] [address]- 3990 Sep, [facility] [place] [facility] [address] [id number] [place] [address]- 0881 Sep, [facility] [place] [facility] [address] [id number] [place] [address]- 2207 Sep, [facility] [place] [facility] [address] [id number] [place] [address]- 3909 Sep, [facility] [place] [facility] [address] [id number] [place] [address]- 3213 Aug, [facility] [place] [facility] [address] [id number] [place] [address]- 6051 Aug, [facility] [place] [facility] [address] [id number] [place] [address]- 4731 Jul, [facility] [place] [facility] [address] [id number] [place] [address]- 5031 Jul, [facility] [place] [facility] [address] [id number] [place] [address]- 2742 Jun, [facility] [place] [facility] [address] [id number], [place] [address]- 5488 Jun, [facility] [place] [facility] [address] [id number], [place] [address]- 0620 Jun, [facility] [place] [facility] [address] [id number] [place] [address]- 4644 Jun, [facility] [place] [facility] [address] [id number], [place] [address]- 8345 Jun, [facility] [place] [facility] [address] [id number], [place] [address]- 9529 Jun, [facility] [place] [facility] [address] [id number] [place] [address]- 7503 May, [facility] [place] [facility] [address] [id number] [place] [address]- 3516 May, [facility] [place] [facility] [address] [id number] [place] [address]- 6002 Apr, [facility] [place] [facility] [address] [id number] [place] [address]- 9082 Apr, [facility] [place] [facility] [address] [id number] [place] [address]- 5084 Apr, [facility] [place] [facility] [address] [id number] [place] [address] Apr, [facility] [place] [facility] [address] [id number] [place] [address] Mar, [facility] [place] [facility] [address] [id number] [place] [address] Mar, [facility] [place] [facility] [address] [id number] [place] [address] Mar, [facility] [place] [facility] [address] [id number] [place] [address] Mar, [facility] [place] [facility] [address] [id number] [place] [address] Mar, [facility] [place] [facility] [address] [id number] [place] [address] Mar, [facility] [place] [facility] [address] [id number] [place] [address] Mar, [facility] [place] [facility] [address] [id number] [place] [address] Mar, [facility] [place] [facility] [address] [id number] [place] [address] Feb, [facility] [place] [facility] [address] [id number] [place] [address] Feb, [facility] [place] [facility] [address] [id number] [place] [address] January, [facility] [place] [facility] [address] [id number] [place] [address] January, [facility] [place] [facility] [address] [id number] [place] [address] January, [facility] [place] [facility] [address] [id number] [place] [address] January, [facility] [address] [id number] [place] [address] Dec, [facility] [place] [facility] [address] [id number] [place] [address] Dec, [facility] [address] [id number] [place] [address] Dec, [facility] [address] [id number] [place] [address] Dec, [facility] [place] [facility] [address] [id number] [place] [address] Nov, [facility] [place] [facility] [address] [id number] [place] [address]- [address] Nov, [facility] [place] [facility] [address] [id number] [place] [address] Sep, [facility] [place] [facility] [address] [id number] [place] [address] Sep, [facility] [place] [facility] [address] [id number] [place] [address]- [address] Sep, [facility] [place] [facility] [address] [id number] [place] [address]- [address] Sep, [facility] [place] [facility] [address] [id number] [place] [address] Sep, [facility] [place] [facility] [address] [id number] [place] [address]- [address] Sep, [facility] [address] [id number] [place] [address] Aug, [facility] [place] [facility] [address] [id number] [place] [address] Aug, [facility] [place] [facility] [address] [id number] [place] [address] Aug, [facility] [place] [facility] [address] [id number] [place] [address] Aug, [facility] [place] [facility] [address] [id number] [place] [address] Jul, [facility] [place] [facility] [address] [id number] [place] [address] Jul, [facility] [place] [facility] [address] [id number] [place] [address] Jun, [facility] [place] [facility] [address] [id number] [place] [address] Jun, [facility] [place] [facility] [address] [id number] [place] [address] Mar, [facility] [place] [facility] [address] [id number] [place] [address] January, [facility] [place] [facility] [address] [id number] [place] [address] Dec, [facility] [place] [facility] [address] [id number] [place] [address] Dec, [facility] [place] [facility] [address] [id number] [place] [address] Nov, [facility] [place] [facility] [address] [id number] [place] [address] Nov, [facility] [place] [facility] [address] [id number] [place] [address] Oct, [facility] [place] [facility] [address] [facility] [id number] [place] [address] January, [facility] [address] [facility] [id number] [place] [id number]- 1183 Dec, [facility] [address] [facility] [id number] [place] [address] Sep, IMMUNIZATIONS No Known Immunizations SOCIAL HISTORY Never Assessed REASON FOR VISIT Medication refill request PLAN OF CARE VITAL SIGNS MEDICATIONS Unknown Medications RESULTS No Results PROCEDURES No Known procedures [...]
--- OUTSIDE RECORDS SUMMARY | 2018-08-12 07:09 | XMS REPORT ---
Author Author JOHANNY KINNEY Organization [facility] Address [address] [place] [address] Care Team Providers Care Couturiere Name Role Phone JOHANNY KINNEY Unavailable PROBLEMS Type Condition ICD9-CM Code SMH19-NZ Code Onset Dates Condition Status SNOMED Code Problem Cervical disc disease M50.90 Active 202006508 Problem Anxiety disorder, unspecified F41.9 Active 492954928 Problem Gastroesophageal reflux disease, esophagitis presence not specified K21.9 Active 999358930 Problem Pulmonary emphysema, unspecified emphysema type J43.9 Active 07345678 Problem Chronic maxillary sinusitis J32.0 Active 62960698 Problem Prediabetes R73.03 Active 531035013 Problem Mixed hyperlipidemia E78.2 Active 229405869 Problem Right maxillary sinusitis J32.0 Active 18997398 Problem Sinusitis chronic, frontal J32.1 Active 99548105 Problem Hypertension I10 Active 51396232 Problem Reactive depression F32.9 Active 14493383 Problem Lumbago with sciatica, right side M54.41 Active 723389526 Problem Sciatica M54.30 Active 58161204 Problem Other chronic pain G89.29 Active 76211980 Problem PVCs (premature ventricular contractions) I49.3 Active 56830809 Problem Neck pain M54.2 Active 48756699 ALLERGIES No Information ENCOUNTERS Encounter Location Date Diagnosis [facility] [id number] [address] May, Elevated glucose R73.09 [facility] [address] [address] 18 May, 2018 Elevated glucose R73.09 [facility] [id number] [address] May, Screening for breast cancer Z12.31 ; Well woman exam Z01.419 and Hypertension I10 [facility] [id number] [place] [address] 58042- 4702 10 May, 2018 Low back pain M54.5 [facility] [address] 22350- 6245 05 May, 2018 Low back pain M54.5 [facility] [address] 92500- 8146 Apr, [facility] [address] 97179- 0059 Apr, [facility] [address] 46731- 6515 Apr, Lumbago with sciatica, right side M54.41 ; Right maxillary sinusitis J32.0 ; Pulmonary emphysema, unspecified emphysema type J43.9 ; Hypertension I10 and Reactive depression F32.9 [facility] [address] 24504- 8009 Apr, [facility] [address] 38708- 5456 Apr, Low back pain M54.5 [facility] [address] 58454- 0330 Apr, Low back pain M54.5 [facility] [id number] [place] [address] 20654- 2643 Mar, Gastroesophageal reflux disease, esophagitis presence not specified K21.9 and Low back pain M54.5 [facility] [id number] [place] [address] 05809 -8826 Feb, Chronic maxillary sinusitis J32.0 [facility] [id number] [place] [address] 44661- 3135 Feb, Low back pain M54.5 [facility] [id number] [place] [address] 85831- 7944 Feb, Low back pain M54.5 [facility] [id number] [place] [address] 37063- 1051 Feb, Low back pain M54.5 [facility] [id number] [place] [address] 98007- 5265 January, [facility] [id number] [place] [address] 29153- 9240 January, Sinusitis chronic, frontal J32.1 [facility] [id number] [place] [address] 41019- 5490 January, Lumbago with sciatica, right side M54.41 ; Cervical disc disease M50.90 ; Hypertension I10 and Gastroesophageal reflux disease, esophagitis presence not specified K21.9 [facility] [id number] [place] [address] 67963- 9706 Dec, Low back pain M54.5 [facility] [id number] [place] [address] 13192- 6736 Dec, Low back pain M54.5 [facility] [id number] [place] [address] 52753- 3369 Nov, [facility] [id number] [place] [address] 40524 -3862 Nov, Right maxillary sinusitis J32.0 [facility] [id number] [place] [address] 83623- 6697 Nov, Low back pain M54.5 [facility] [id number] [place] [address] 66172 -5355 Oct, Sinusitis chronic, frontal J32.1 [facility] [id number] [place] [address] 16795- 8070 Oct, Neck pain M54.2 [facility] [id number] [place] [address] 80572- 7614 Sep, Low back pain M54.5 [facility] [address] 60446- 1952 Sep, Neck pain M54.2 [facility] [address] 01115- 9733 Sep, Lumbago with sciatica, right side M54.41 ; Hypertension I10 ; Bronchitis J40 and Anxiety disorder, unspecified F41.9 [facility] [address] 77657- 7446 Aug, Neck pain M54.2 and Low back pain M54.5 [facility] [address] 45942- 7486 16 Jul, 2017 Neck pain M54.2 and Low back pain M54.5 [facility] [address] 43923- 1108 Jul, Neck pain M54.2 [facility] [address] 13383- 5630 Jun, Low back pain M54.5 and Neck pain M54.2 [facility] [address] 23439- 4066 May, Low back pain M54.5 and Neck pain M54.2 [facility] [address] 76440- 0764 May, [facility] [address] 84081 -1394 14 May, 2017 Bronchitis J40 [facility] [address] 63167- 6513 Apr, Hyperglycemia R73.9 [facility] [address] 41811- 1335 08 Apr, 2017 Hyperglycemia R73.9 [facility] [address] 10648- 9491 07 Apr, 2017 Gastroesophageal reflux disease, esophagitis presence not specified K21.9 ; Mixed hyperlipidemia E78.2 ; Neck pain M54.2 and PVCs ( premature ventricular contractions) I49.3 [facility] [address] 63967- 4930 Mar, Low back pain M54.5 [facility] [address] 38506- 1457 Feb, Low back pain M54.5 and Gastroesophageal reflux disease, esophagitis presence not specified K21.9 [facility] [address] 75466- 5040 January, Dyspnea on exertion R06.09 [facility] [address] 90018- 7249 January, Hypertension I10 [facility] [address] 31286- 2875 January, [facility] [address] 97857- 9665 January, Low back pain M54.5 [facility] [address] 49126- 3251 January, Low back pain M54.5 [facility] [id number] [place] [address] 52554- 7854 January, Gastroesophageal reflux disease, esophagitis presence not specified K21.9 ; Lumbago with sciatica, right side M54.41 and Dyspnea on exertion R06.09 [facility] [id number] [place] [address] 99291- 4129 Nov, [facility] [address] 78085- 3711 Nov, [facility] [id number] [place] [address] 43516- 7791 Nov, Gastroesophageal reflux disease, esophagitis presence not specified K21.9 and Bronchitis J40 [facility] [id number] [place] [address] 69151- 3001 15 Oct, 2016 Low back pain M54.5 and Anxiety disorder, unspecified F41.9 [facility] [address] 34107- 9302 10 Oct, 2016 Bronchitis J40 ; Hypertension I10 ; Sciatica M54.30 and Paresthesias R20.2 [facility] [address] [id number] Sep, Dental examination Z01.20 [facility] [address] [id number] Sep, Dental examination Z01.20 and Dental caries K02.9 [facility] [address] 89192- 3923 Aug, [facility] [address] 02686- 7191 Jul, Low back pain M54.5 and Anxiety disorder, unspecified F41.9 [facility] [address] 89040- 6263 Jul, [facility] [address] 29400- 4492 Jun, Lumbago with sciatica, right side M54.41 ; Cervical disc disease M50.90 and Gastroesophageal reflux disease, esophagitis presence not specified K21.9 [facility] [id number] [place] [address] 63847- 2854 Jun, [facility] [address] 52277- 3326 Jun, [facility] [address] 69656- 1291 Jun, [facility] [id number] [place] [address] 43656- 6385 Jun, [facility] [address] 05219- 1373 Jun, [facility] [address] [address]- 6815 May, [facility] [address] [place] [address] 85956- 6741 May, [facility] [address] [place] [address] 08887- 8118 May, [facility] [id number] [place] [address] 32946- 9930 Apr, [facility] [address] [place] [address] 23105- 6390 Apr, [facility] [id number] [place] [address] 11473- 6760 Apr, [facility] [id number] [place] [address] 35334- 9817 Apr, Cervical disc disease M50.90 [facility] [id number] [place] [address] 52692- 4049 Apr, [facility] [id number] [place] [address] 66712- 6977 Apr, Neck pain M54.2 ; Hypertension I10 and Reactive depression F32.9 [facility] [address] [address]- 1085 Mar, [facility] [address] [place] [address] 49385- 2903 Mar, [facility] [address] [address]- 8244 Mar, [facility] [id number] [place] [address] 19939- 7195 Feb, Sciatica M54.30 [facility] [address] [address]- 1729 Feb, Paresthesias R20.2 ; Sciatica M54.30 and Reactive depression F32.9 [facility] [id number] [place] [address] 46594- 6639 Feb, [facility] [address] 08836- 6340 January, [facility] [address] 06908- 7170 January, Hyperlipemia, mixed E78.2 ; Other abnormalities of heart beat R00.8 and Anxiety F41.9 [facility] [address] 68174- 3285 January, [address] 24329- 8858 January, Low back pain M54.5 [address] 73365- 8815 January, Anxiety disorder, unspecified F41.9 [facility] [id number] [place] [address] 36758- 6772 18 Dec, 2015 Ventricular bigeminy I49.9 [address] 98568- 8323 Dec, [facility] [id number] [place] [address] 37115- 6276 Dec, Low back pain M54.5 [facility] [id number] [place] [address] 91270- 1593 Dec, Sciatica M54.30 [facility] [id number] [place] [address] 23777- 0783 Nov, Major depressive disorder, single episode, unspecified F32.9 [facility] [id number] [place] [address] 58769- 6672 14 Nov, 2015 Sciatica M54.30 [facility] [address] 90285- 6691 14 Nov, 2015 [facility] [id number] [place] [address] 48194- 2034 Nov, [facility] [id number] [place] [address] 29993- 1619 Nov, Anxiety disorder, unspecified F41.9 [facility] [id number] [place] [address] 74411- 5751 Nov, [facility] [id number] [place] [address] 24847- 5102 Nov, Depressed F32.9 and Anxiety F41.9 [facility] [address] 66951- 4076 Nov, Lumbago 724.2 ; Sciatica M54.30 and PVCs (premature ventricular contractions) I49.3 [facility] [id number] [place] [address] 24954- 0187 Oct, [facility] [id number] [place] [address] 24428- 0612 Oct, [facility] [id number] [place] [address] 88821- 3835 Oct, Sciatica M54.30 and Hypertension I10 [facility] [id number] [place] [address] 94726- 8189 Oct, [facility] [id number] [place] [address] 70458- 4546 Oct, [facility] [id number] [place] [address] 61224- 6072 Oct, [facility] [id number] [place] [address] 90614- 0667 Sep, [facility] [id number] [place] [address] 15266- 9363 Sep, [facility] [address] [place] [address]- 0565 Sep, [facility] [address] [place] [address] 50653- 9370 Sep, Ventricular arrhythmia I49.9 [facility] [id number] [place] [address], [place] [address]- 7031 Sep, Ventricular bigeminy I49.9 and Hypertension I10 [facility] [id number] [place] [address] 69930- 3167 Sep, Lumbago M54.5 and Ventricular bigeminy I49.9 [facility] [id number] [place] [address], [place] [address]- 1528 Sep, [facility] [id number] [place] [address] 08704- 2040 Aug, [facility] [id number] [place] [address], [place] [address]- 4553 Aug, [facility] [address] [place] [address] 10625- 7666 Aug, [facility] [id number] [place] [address], [place] [address]- 7618 Aug, [facility] [address] [address]- 2179 Aug, [facility] [address] [place] [address] 28801- 2794 Jul, [facility] [address] [address]- 3322 Jun, [facility] [id number] [place] [address], [place] [address]- 0933 14 May, 2015 [facility] [address] [address]- 2485 May, [facility] [address] [place] [address] 378300- 2467 May, Lumbago 724.2 and Depressive disorder, not elsewhere classified 311 [facility] [address] [address]- 8325 Apr, UTI (urinary tract infection) 599.0 [facility] [address] 7149 Apr, UTI (urinary tract infection) 599.0 and Depression 311 [facility] [address] [address]- 4985 Mar, [facility] [address] [address]- 0481 Mar, [facility] [address] [place] [address] 32629- 1766 Mar, [facility] [id number] [place] [address] 37466- 5496 Mar, Unspecified essential hypertension 401.9 ; Lumbago 724.2 and Anxiety 300.00 [facility] [address] [address]- 3857 Mar, [facility] [address] [address]- 2306 Feb, [facility] [address] [address]- 8357 Feb, [facility] [address] [address]- 3893 January, [facility] [id number] [address]- 8953 Dec, [facility] [address] [address]- 5958 Dec, [facility] [id number] [address]- 1805 Oct, [facility] [address] [address]- 0557 Oct, [facility] [place] [facility] [address] [id number] [place] [address]- 4675 Oct, [facility] [place] [facility] [address] [id number] [place] [address]- 6081 Oct, [facility] [place] [facility] [address] [id number] [place] [address]- 6373 Sep, [facility] [place] [facility] [address] [id number] [place] [address]- 5309 Sep, [facility] [place] [facility] [address] [id number] [place] [address]- 5799 Sep, [facility] [place] [facility] [address] [id number] [place] [address]- 8460 Sep, [facility] [place] [facility] [address] [facility] [id number] [place] [address]- 0539 Aug, [facility] [place] [facility] [address] [id number] [place] [address]- 5414 Aug, [facility] [place] [facility] [address] [facility] [id number] [place] [address]- 2319 Jul, [facility] [place] [facility] [address] [facility] [id number] [place] [address]- 7036 Jul, [facility] [place] [facility] [address] [id number] [address]- 8378 Jun, [facility] [place] [facility] [address] [id number] [address]- 4428 Jun, [facility] [place] [facility] [address] [id number] [place] [address]- 6851 Jun, [facility] [place] [facility] [address] [id number] [place] [address]- 2692 Jun, [facility] [place] [facility] [address] [facility] [id number] [place] [address]- 6879 Jun, [facility] [place] [facility] [address] [id number] [place] [address]- 8873 Jun, [facility] [place] [facility] [address] [id number] [place] [address]- 7957 May, [facility] [place] [facility] [address] [id number] [place] [address]- 5556 May, [facility] [place] [facility] [address] [id number] [place] [address]- 7876 Apr, [facility] [place] [facility] [address] [id number] [place] [address]- 5498 Apr, [facility] [place] [facility] [address] [id number] [place] [address]- 2828 Apr, [facility] [place] [facility] [address] [id number] [place] [address]- 4924 Apr, [facility] [place] [facility] [address] [id number] [place] [address]- 7951 Mar, [facility] [place] [facility] [address] [id number] [place] [address]- 5996 Mar, [facility] [place] [facility] [address] [id number] [place] [address]- 4805 Mar, [facility] [place] [facility] [address] [id number] [place] [address]- 5857 Mar, [facility] [place] [facility] [address] [id number] [place] [address]- 0585 Mar, [facility] [place] [facility] [address] [id number] [place] [address]- 3896 Mar, [facility] [place] [facility] [address] [id number] [place] [address]- 5596 Mar, [facility] [place] [facility] [address] [id number] [place] [address]- 2686 Mar, [facility] [place] [facility] [address] [id number] [place] [address]- 3647 Feb, [facility] [place] [facility] [address] [id number] [place] [address]- 9721 Feb, [facility] [place] [facility] [address] [id number] [place] [address]- 1233 January, [facility] [place] [facility] [address] [id number] [place] [address]- 5408 January, [facility] [place] [facility] [address] [id number] [place] [address]- 1160 January, [facility] [place] [facility] [address] [id number] [place] [address]- 2393 January, [facility] [place] [facility] [address] [id number] [place] [address]- 2381 Dec, [facility] [place] [facility] [address] [id number] [place] [address]- 9470 Dec, [facility] [place] [facility] [address] [id number] [place] [address]- 6530 Dec, [facility] [place] [facility] [address] [id number] [place] [address]- 6317 Dec, [facility] [place] [facility] [address] [id number] [place] [address]- 7661 Nov, [facility] [place] [facility] [address] [id number] [place] [address]- 1412 Nov, [facility] [place] [facility] [address] [id number] [place] [address]- 9103 Sep, [facility] [place] [facility] [address] [id number] [place] [address]- 0322 Sep, [facility] [place] [facility] [address] [id number] [place] [address]- 3154 Sep, [facility] [place] [facility] [address] [id number] [place] [address]- 18[address] Sep, [facility] [place] [facility] [address] [id number] [place] [address] 13 Sep, 2013 [facility] [address] [id number] [place] [address] Sep, [facility] [place] [facility] [address] [id number] [place] [address] Aug, [facility] [address] [id number] [place] [address] Aug, [facility] [place] [facility] [address] [id number] [place] [address] Aug, [facility] [address] [id number] [place] [address] Aug, [facility] [place] [facility] [address] [id number] [place] [address] Jul, [facility] [address] [id number] [place] [address] Jul, [facility] [address] [id number] [place] [address] Jun, [facility] [address] [id number] [place] [address] Jun, [facility] [address] [id number] [place] [address] Mar, [facility] [address] [id number] [place] [address] January, [facility] [place] [facility] [address] [id number] [place] [address] Dec, [facility] [place] [facility] [address] [id number] [place] [address] Dec, [facility] [place] [facility] [address] [id number] [place] [address] Nov, [facility] [place] [facility] [address] [id number] [place] [address] Nov, [facility] [address] [facility] [id number] [place] [address] Oct, [facility] [address] [facility] [id number] [place] [address] January, [facility] [address] [facility] [id number] [place] [address] Dec, [facility] [address] [facility] [id number] [place] [address] Sep, IMMUNIZATIONS No Known Immunizations SOCIAL HISTORY Never Assessed REASON FOR VISIT Controlled Med Refill 05/14 PLAN OF CARE VITAL SIGNS MEDICATIONS Medication Instructions Dosage Frequency Start Date End Date Duration Status Gabapentin 600 mg Orally 2 times a day 1 tablet 12h Active Diazepam 5MG Orally, each fill must [...]
--- OUTSIDE RECORDS SUMMARY | 2018-08-12 07:09 | XMS REPORT ---
Author Author JOHANNY KINNEY Organization [facility] Address [address] [place] [address] Care Team Providers Care [employer] Name Role Phone JOHANNY KINNEY Unavailable PROBLEMS Type Condition ICD9-CM Code IYX41-FI Code Onset Dates Condition Status SNOMED Code Problem Cervical disc disease M50.90 Active 107726954 Problem Anxiety disorder, unspecified F41.9 Active 406443923 Problem Gastroesophageal reflux disease, esophagitis presence not specified K21.9 Active 041831042 Problem Pulmonary emphysema, unspecified emphysema type J43.9 Active 23766435 Problem Chronic maxillary sinusitis J32.0 Active 71745456 Problem Prediabetes R73.03 Active 481622944 Problem Mixed hyperlipidemia E78.2 Active 995727642 Problem Right maxillary sinusitis J32.0 Active 49750505 Problem Sinusitis chronic, frontal J32.1 Active 34550186 Problem Hypertension I10 Active 54704553 Problem Reactive depression F32.9 Active 40661467 Problem Lumbago with sciatica, right side M54.41 Active 351282331 Problem Sciatica M54.30 Active 64434445 Problem Other chronic pain G89.29 Active 73974374 Problem PVCs (premature ventricular contractions) I49.3 Active 95854474 Problem Neck pain M54.2 Active 95732969 ALLERGIES No Information ENCOUNTERS Encounter Location Date Diagnosis [facility] [id number], [place] [address] 18 May, 2018 Elevated glucose R73.09 [facility] [id number] [place] [address] 90901- 3815 11 May, 2018 Screening for breast cancer Z12.31 ; Well woman exam Z01.419 and Hypertension I10 [facility] [id number], [place] [address] 10 May, 2018 Low back pain M54.5 [facility] [id number] [place] [address] 29913- 2662 May, Low back pain M54.5 [facility] [id number] [place] [address] 86697- 2678 Apr, [facility] [id number] [place] [address] 52738- 9848 Apr, [facility] [address] 27967- 0232 Apr, Lumbago with sciatica, right side M54.41 ; Right maxillary sinusitis J32.0 ; Pulmonary emphysema, unspecified emphysema type J43.9 ; Hypertension I10 and Reactive depression F32.9 [facility] [id number] [place] [address] 04335- 0620 Apr, [facility] [address] 67583- 9734 Apr, Low back pain M54.5 [facility] [id number] [place] [address] 22997- 8497 Apr, Low back pain M54.5 [facility] [id number] [place] [address] 37060- 1826 Mar, Gastroesophageal reflux disease, esophagitis presence not specified K21.9 and Low back pain M54.5 [facility] [id number] [place] [address] 80979 -0590 Feb, Chronic maxillary sinusitis J32.0 [facility] [id number] [place] [address] 78493- 1021 Feb, Low back pain M54.5 [facility] [id number] [place] [address] 02853- 3810 Feb, Low back pain M54.5 [facility] [id number] [place] [address] 46587- 5367 Feb, Low back pain M54.5 [facility] [id number] [place] [address] 22422- 4977 January, [facility] [id number] [place] [address] 58428- 6311 January, Sinusitis chronic, frontal J32.1 [facility] [id number] [place] [address] 46258- 7867 January, Lumbago with sciatica, right side M54.41 ; Cervical disc disease M50.90 ; Hypertension I10 and Gastroesophageal reflux disease, esophagitis presence not specified K21.9 [facility] [address] 62344- 5047 Dec, Low back pain M54.5 [facility] [id number] [place] [address] 01060- 0247 Dec, Low back pain M54.5 [facility] [address] 80334- 7614 Nov, [facility] [id number] [place] [address] 35225 -8609 Nov, Right maxillary sinusitis J32.0 [facility] [id number] [place] [address] 30284- 6813 Nov, Low back pain M54.5 [facility] [id number] [place] [address] 52023 -4906 Oct, Sinusitis chronic, frontal J32.1 [facility] [id number] [place] [address] 48495- 2977 Oct, Neck pain M54.2 [facility] [id number] [place] [address] 69169- 2016 Sep, Low back pain M54.5 [facility] [id number] [place] [address] 38131- 9569 Sep, Neck pain M54.2 [facility] [id number] [place] [address] 94699- 2295 08 Sep, 2017 Lumbago with sciatica, right side M54.41 ; Hypertension I10 ; Bronchitis J40 and Anxiety disorder, unspecified F41.9 [place] [address] 55776- 5552 13 Aug, 2017 Neck pain M54.2 and Low back pain M54.5 [place] [address] 81370- 4879 16 Jul, 2017 Neck pain M54.2 and Low back pain M54.5 [place] [address] 24017- 9047 06 Jul, 2017 Neck pain M54.2 [place] [address] 10997- 6127 Jun, Low back pain M54.5 and Neck pain M54.2 [place] [address] 16443- 5369 May, Low back pain M54.5 and Neck pain M54.2 [place] [address] 05828- 2603 21 May, 2017 [facility] [address] 24584 -3594 14 May, 2017 Bronchitis J40 [place] [address] 53352- 0787 Apr, Hyperglycemia R73.9 [place] [address] 36310- 2390 08 Apr, 2017 Hyperglycemia R73.9 [place] [address] 16257- 7285 07 Apr, 2017 Gastroesophageal reflux disease, esophagitis presence not specified K21.9 ; Mixed hyperlipidemia E78.2 ; Neck pain M54.2 and PVCs ( premature ventricular contractions) I49.3 [place] [id number] [place] [address] 10209- 0274 Mar, Low back pain M54.5 [facility] [id number] [place] [address] 54023- 6693 Feb, Low back pain M54.5 and Gastroesophageal reflux disease, esophagitis presence not specified K21.9 [facility] [id number] [place] [address] 74049- 0421 January, Dyspnea on exertion R06.09 [facility] [id number] [place] [address] 51086- 6980 January, Hypertension I10 [facility] [address] 57384- 3570 January, [facility] [id number] [place] [address] 06246- 9346 January, Low back pain M54.5 [facility] [id number] [place] [address] 52644- 2907 January, Low back pain M54.5 [facility] [id number] [place] [address] 57115- 5504 January, Gastroesophageal reflux disease, esophagitis presence not specified K21.9 ; Lumbago with sciatica, right side M54.41 and Dyspnea on exertion R06.09 [facility] [id number] [place] [address] 49898- 4097 Nov, [facility] [id number] [place] [address] 85426- 3325 Nov, [facility] [id number] [place] [address] 16856- 5959 Nov, Gastroesophageal reflux disease, esophagitis presence not specified K21.9 and Bronchitis J40 [facility] [id number] [place] [address] 21462- 9316 Oct, Low back pain M54.5 and Anxiety disorder, unspecified F41.9 [facility] [id number] [place] [address] 61667- 1206 10 Oct, 2016 Bronchitis J40 ; Hypertension I10 ; Sciatica M54.30 and Paresthesias R20.2 [facility] [id number] [place] [address] [id number] Sep, Dental examination Z01.20 [facility] [id number] [place] [address] [id number] Sep, Dental examination Z01.20 and Dental caries K02.9 [facility] [address] 66174- 4405 Aug, [facility] [id number] [place] [address] 51304- 9795 Jul, Low back pain M54.5 and Anxiety disorder, unspecified F41.9 [facility] [id number] [place] [address] 24154- 6945 Jul, [facility] [id number] [place] [address] 50040- 2235 Jun, Lumbago with sciatica, right side M54.41 ; Cervical disc disease M50.90 and Gastroesophageal reflux disease, esophagitis presence not specified K21.9 [facility] [id number] [place] [address] 74082- 3823 Jun, [facility] [id number] [place] [address] 03702- 7234 Jun, [facility] [id number] [place] [address] 50545- 9136 Jun, [facility] [id number] [place] [address] 34418- 7276 Jun, [facility] [id number] [place] [address] 53798- 8854 Jun, [facility] [id number] [place] [address] 92229- 8004 May, [facility] [id number] [place] [address] 95329- 5220 May, [facility] [id number] [place] [address] 26583- 4179 May, [facility] [id number] [place] [address] 60244- 2890 Apr, [facility] [id number] [place] [address] 88443- 8623 Apr, [facility] [id number] [place] [address] 14726- 8779 Apr, [facility] [id number] [place] [address] 98024- 9761 Apr, Cervical disc disease M50.90 [facility] [id number] [place] [address] 56866- 5607 Apr, [facility] [id number] [place] [address] 83130- 3453 Apr, Neck pain M54.2 ; Hypertension I10 and Reactive depression F32.9 [facility] [id number] [place] [address] 43801- 1314 Mar, [facility] [id number] [place] [address] 06539- 6350 Mar, [facility] [id number] [place] [address] 80434- 3798 Mar, [facility] [id number] [place] [address] 28179- 0345 Feb, Sciatica M54.30 [facility] [id number] [place] [address] 08400- 8825 Feb, Paresthesias R20.2 ; Sciatica M54.30 and Reactive depression F32.9 [facility] [id number] [place] [address] 88234- 6564 Feb, [facility] [id number] [place] [address] 87044- 6802 January, [facility] [id number] [place] [address] 48885- 0244 January, Hyperlipemia, mixed E78.2 ; Other abnormalities of heart beat R00.8 and Anxiety F41.9 [facility] [address] 93655- 3944 January, [facility] [id number] [place] [address] 37650- 6463 January, Low back pain M54.5 [facility] [id number] [place] [address] 10269- 5931 January, Anxiety disorder, unspecified F41.9 [facility] [id number] [place] [address] 90701- 1361 Dec, Ventricular bigeminy I49.9 [facility] [id number] [place] [address] 84117- 3186 Dec, [facility] [id number] [place] [address] 97759- 2060 Dec, Low back pain M54.5 [facility] [id number] [place] [address] 79455- 8124 Dec, Sciatica M54.30 [facility] [id number] [place] [address] 88460- 8060 Nov, Major depressive disorder, single episode, unspecified F32.9 [facility] [id number] [place] [address] 87900- 2182 Nov, Sciatica M54.30 [facility] [id number] [place] [address] 15104- 9449 Nov, [facility] [id number] [place] [address] 90078- 9436 Nov, [facility] [id number] [place] [address] 31760- 9662 Nov, Anxiety disorder, unspecified F41.9 [facility] [id number] [place] [address] 07082- 3588 Nov, [facility] [id number] [place] [address] 16564- 5655 Nov, Depressed F32.9 and Anxiety F41.9 [facility] [address] 85109- 5484 Nov, Lumbago 724.2 ; Sciatica M54.30 and PVCs (premature ventricular contractions) I49.3 [facility] [id number] [place] [address] 43964- 0363 Oct, [facility] [address] 28303- 2589 Oct, [facility] [id number] [place] [address] 14981- 4890 Oct, Sciatica M54.30 and Hypertension I10 [facility] [id number] [place] [address] 89535- 1316 Oct, [facility] [id number] [place] [address] 04205- 5343 Oct, [facility] [id number] [place] [address] 97324- 9373 Oct, [facility] [id number] [place] [address] 72837- 0520 Sep, [facility] [address] 15034- 7235 Sep, [facility] [id number] [place] [address] 21229- 9001 Sep, [facility] [address] 50498- 2909 Sep, Ventricular arrhythmia I49.9 [facility] [address] [place] [address] 90407- 3143 Sep, Ventricular bigeminy I49.9 and Hypertension I10 [facility] [id number] [place] [address] 33701- 9640 Sep, Lumbago M54.5 and Ventricular bigeminy I49.9 [facility] [id number] [place] [address] 05170- 1502 Sep, [facility] [id number] [place] [address] 26809- 4510 Aug, [facility] [id number] [place] [address] 97371- 0880 Aug, [facility] [id number] [place] [address] 60979- 5094 Aug, [facility] [address] [place] [address] 29044- 2423 Aug, [facility] [id number] [place] [address] 87007- 4713 Aug, [facility] [id number] [place] [address] 00327- 4507 Jul, [facility] [id number] [place] [address] 63773- 6120 Jun, [facility] [address] [place] [address]- 6553 14 May, 2015 [facility] [id number] [place] [address] 51916- 5970 May, [facility] [address] [place] [address] 10063- 4235 May, Lumbago 724.2 and Depressive disorder, not elsewhere classified 311 [facility] [id number] [place] [address] 88599- 1436 Apr, UTI (urinary tract infection) 599.0 [facility] [id number], [place] [address]- 2003 Apr, UTI (urinary tract infection) 599.0 and Depression 311 [facility] [address], [place] [address]- 7835 Mar, [facility] [address] [place] [address]- 2588 Mar, [facility] [address]- 6369 Mar, [facility] [address] 2338 Mar, Unspecified essential hypertension 401.9 ; Lumbago 724.2 and Anxiety 300.00 [facility] [address], [place] [address]- 7177 Mar, [facility] [address], [place] [address]- 8941 Feb, [facility] [address] [place] [address]- 5060 Feb, [facility] [id number] [address]- 5920 January, [facility] [id number], [place] [address]- 5715 Dec, [facility] [id number], [place] [address]- 1563 Dec, [facility] [id number] [address]- 3960 Oct, [facility] [id number] [address]- 0096 Oct, [facility] [id number], [place] [address]- 1795 Oct, [facility] [place] [facility] [address] [id number] [place] [address]- 7048 Oct, [facility] [place] [facility] [address] [id number] [place] [address]- 2042 Sep, [facility] [place] [facility] [address] [id number] [place] [address]- 4640 Sep, [facility] [place] [facility] [address] [id number] [place] [address]- 0761 Sep, [facility] [place] [facility] [address] [id number] [place] [address]- 9802 Sep, [facility] [place] [facility] [address] [id number] [place] [address]- 9148 Aug, [facility] [place] [facility] [address] [id number] [place] [address]- 3508 Aug, [facility] [place] [facility] [address] [id number] [place] [address]- 2158 Jul, [facility] [place] [facility] [address] [id number] [place] [address]- 2207 Jul, [facility] [place] [facility] [address] [id number] [place] [address]- 5184 Jun, [facility] [place] [facility] [address] [id number], [place] [address]- 7583 Jun, [facility] [place] [facility] [address] [id number], [place] [address]- 7049 Jun, [facility] [place] [facility] [address] [id number] [place] [address]- 3181 Jun, [facility] [place] [facility] [address] [id number], [place] [address]- 3414 Jun, [facility] [place] [facility] [address] [id number], [place] [address]- 3860 Jun, [facility] [place] [facility] [address] [id number] [place] [address]- 2987 May, [facility] [place] [facility] [address] [id number] [place] [address]- 1746 May, [facility] [place] [facility] [address] [id number] [place] [address]- 1857 Apr, [facility] [place] [facility] [address] [id number] [place] [address]- 4026 Apr, [facility] [place] [facility] [address] [id number] [place] [address]- 0585 Apr, [facility] [place] [facility] [address] [id number] [place] [address]- 6127 Apr, [facility] [place] [facility] [address] [id number] [place] [address]- 7810 Mar, [facility] [place] [facility] [address] [id number] [place] [address]- 2211 Mar, [facility] [place] [facility] [address] [id number] [place] [address]- 3182 Mar, [facility] [place] [facility] [address] [id number] [place] [address]- 8607 Mar, [facility] [place] [facility] [address] [id number] [place] [address]- 9509 Mar, [facility] [place] [facility] [address] [id number] [place] [address]- 1334 Mar, [facility] [place] [facility] [address] [id number] [place] [address]- 6970 Mar, [facility] [place] [facility] [address] [id number] [place] [address]- 5436 Mar, [facility] [place] [facility] [address] [id number] [place] [address] Feb, [facility] [place] [facility] [address] [id number] [place] [address] Feb, [facility] [place] [facility] [address] [id number] [place] [address] January, [facility] [place] [facility] [address] [id number] [place] [address] January, [facility] [place] [facility] [address] [id number] [place] [address] January, [facility] [place] [facility] [address] [id number] [place] [address] January, [facility] [address] [id number] [place] [address] Dec, [facility] [place] [facility] [address] [id number] [place] [address] Dec, [facility] [address] [id number] [place] [address] Dec, [facility] [address] [id number] [place] [address] Dec, [facility] [place] [facility] [address] [id number] [place] [address] Nov, [facility] [place] [facility] [address] [id number] [place] [address] Nov, [facility] [place] [facility] [address] [id number] [place] [address] Sep, [facility] [place] [facility] [address] [id number] [place] [address] Sep, [facility] [place] [facility] [address] [id number] [place] [address] Sep, [facility] [place] [facility] [address] [id number] [place] [address] Sep, [facility] [place] [facility] [address] [id number] [place] [address] Sep, [facility] [place] [facility] [address] [id number] [place] [address] Sep, [facility] [address] [id number] [place] [address] Aug, [facility] [place] [facility] [address] [id number] [place] [address] Aug, [facility] [place] [facility] [address] [id number] [place] [address] Aug, [facility] [place] [facility] [address] [id number] [place] [address] Aug, [facility] [place] [facility] [address] [id number] [place] [address] Jul, [facility] [place] [facility] [address] [id number] [place] [address] Jul, [facility] [place] [facility] [address] [id number] [place] [address] Jun, [facility] [place] [facility] [address] [id number] [place] [address] Jun, [facility] [place] [facility] [address] [id number] [place] [address] Mar, [facility] [place] [facility] [address] [id number] [place] [address] January, [facility] [place] [facility] [address] [id number] [place] [address] Dec, [facility] [place] [facility] [address] [id number] [place] [address] Dec, [facility] [place] [facility] [address] [id number] [place] [address] Nov, [facility] [place] [facility] [address] [id number] [place] [address] Nov, [facility] [place] [facility] [address] [id number] [place] [address] Oct, [facility] [place] [facility] [address] [facility] [id number] [place] [id number] January, [facility] [address] [facility] [id number] [place] [address] Dec, [facility] [address] [facility] [id number] [place] [address] Sep, IMMUNIZATIONS No Known Immunizations SOCIAL HISTORY Never Assessed REASON FOR VISIT PLAN OF CARE VITAL SIGNS MEDICATIONS Medication Instructions Dosage Frequency Start Date End Date Duration Status Breo Ellipta 100-25 MCG/INH Inhalation Once a day 1 puff 24h Apr, Active RESULTS No Results PROCEDURES No Known [...]
--- OUTSIDE RECORDS SUMMARY | 2018-08-12 07:10 | XMS REPORT ---
Author Author JOHANNY KINNEY Organization [facility] Address [address] [place] [address] Care Team Providers Care Ssrs Developer Name Role Phone JOHANNY KINNEY Unavailable PROBLEMS Type Condition ICD9-CM Code BGW66-SB Code Onset Dates Condition Status SNOMED Code Problem Cervical disc disease M50.90 Active 908515079 Problem Anxiety disorder, unspecified F41.9 Active 837909021 Problem Gastroesophageal reflux disease, esophagitis presence not specified K21.9 Active 631264925 Problem Pulmonary emphysema, unspecified emphysema type J43.9 Active 17510410 Problem Chronic maxillary sinusitis J32.0 Active 97467414 Problem Prediabetes R73.03 Active 235704712 Problem Mixed hyperlipidemia E78.2 Active 448440580 Problem Right maxillary sinusitis J32.0 Active 30137014 Problem Sinusitis chronic, frontal J32.1 Active 28400220 Problem Hypertension I10 Active 28201163 Problem Reactive depression F32.9 Active 55782843 Problem Lumbago with sciatica, right side M54.41 Active 380613677 Problem Sciatica M54.30 Active 11192561 Problem Other chronic pain G89.29 Active 32287283 Problem PVCs (premature ventricular contractions) I49.3 Active 71353116 Problem Neck pain M54.2 Active 01708917 ALLERGIES No Information ENCOUNTERS Encounter Location Date Diagnosis [facility] [address] [address] 11 May, 2018 Screening for breast cancer Z12.31 ; Well woman exam Z01.419 and Hypertension I10 [facility] [address] [address] 10 May, 2018 Low back pain M54.5 [facility] [id number] [address] 250[address] 05 May, 2018 Low back pain M54.5 [facility] [id number] [place] [address] 90360- 7366 Apr, [facility] [id number] [place] [address] 04868- 6487 Apr, [facility] [id number] [place] [address] 40120- 0120 Apr, Lumbago with sciatica, right side M54.41 ; Right maxillary sinusitis J32.0 ; Pulmonary emphysema, unspecified emphysema type J43.9 ; Hypertension I10 and Reactive depression F32.9 [facility] [id number] [place] [address] 56091- 2806 Apr, [facility] [id number] [place] [address] 55132- 1424 Apr, Low back pain M54.5 [facility] [id number] [place] [address] 37683- 5506 Apr, Low back pain M54.5 [facility] [id number] [place] [address] 06122- 5310 Mar, Gastroesophageal reflux disease, esophagitis presence not specified K21.9 and Low back pain M54.5 [facility] [id number] [place] [address] 29904 -0339 Feb, Chronic maxillary sinusitis J32.0 [facility] [id number] [place] [address] 75526- 8223 Feb, Low back pain M54.5 [facility] [id number] [place] [address] 51305- 0256 Feb, Low back pain M54.5 [facility] [id number] [place] [address] 72628- 7251 Feb, Low back pain M54.5 [facility] [id number] [place] [address] 71690- 8607 January, [facility] [id number] [place] [address] 19998- 5686 January, Sinusitis chronic, frontal J32.1 [facility] [address] 44668- 4111 January, Lumbago with sciatica, right side M54.41 ; Cervical disc disease M50.90 ; Hypertension I10 and Gastroesophageal reflux disease, esophagitis presence not specified K21.9 [facility] [address] 43705- 6133 Dec, Low back pain M54.5 [place] [address] 87966- 3712 Dec, Low back pain M54.5 [place] [address] 37490- 9321 Nov, [facility] [address] 05863 -4437 Nov, Right maxillary sinusitis J32.0 [facility] [address] 28820- 3376 Nov, Low back pain M54.5 [facility] [id number] [place] [address] 18867 -1978 Oct, Sinusitis chronic, frontal J32.1 [facility] [id number] [place] [address] 26427- 4608 Oct, Neck pain M54.2 [facility] [id number] [place] [address] 23312- 6817 Sep, Low back pain M54.5 [facility] [address] 65213- 0099 Sep, Neck pain M54.2 [facility] [id number] [place] [address] 55178- 3186 Sep, Lumbago with sciatica, right side M54.41 ; Hypertension I10 ; Bronchitis J40 and Anxiety disorder, unspecified F41.9 [facility] [address] 51731- 4831 13 Aug, 2017 Neck pain M54.2 and Low back pain M54.5 [facility] [address] 18732- 7303 16 Jul, 2017 Neck pain M54.2 and Low back pain M54.5 [facility] [address] 90283- 1964 06 Jul, 2017 Neck pain M54.2 [place] [address] 44220- 6887 Jun, Low back pain M54.5 and Neck pain M54.2 [place] [address] 70045- 8888 22 May, 2017 Low back pain M54.5 and Neck pain M54.2 [facility] [address] 85090- 5081 21 May, 2017 [facility] [address] 68268 -2038 14 May, 2017 Bronchitis J40 [facility] [address] 35556- 5224 11 Apr, 2017 Hyperglycemia R73.9 [place] [address] 45091- 5177 08 Apr, 2017 Hyperglycemia R73.9 [place] [address] 71227- 7829 Apr, Gastroesophageal reflux disease, esophagitis presence not specified K21.9 ; Mixed hyperlipidemia E78.2 ; Neck pain M54.2 and PVCs ( premature ventricular contractions) I49.3 [facility] [address] 73185- 4020 Mar, Low back pain M54.5 [place] [id number] [place] [address] 23781- 4725 Feb, Low back pain M54.5 and Gastroesophageal reflux disease, esophagitis presence not specified K21.9 [facility] [id number] [place] [address] 39721- 0985 January, Dyspnea on exertion R06.09 [place] [address] 27964- 6020 January, Hypertension I10 [place] [address] 95977- 7043 January, [place] [address] 37757- 0227 January, Low back pain M54.5 [place] [id number] [place] [address] 60933- 3120 January, Low back pain M54.5 [place] [id number] [place] [address] 59104- 3902 05 Jan, 2017 Gastroesophageal reflux disease, esophagitis presence not specified K21.9 ; Lumbago with sciatica, right side M54.41 and Dyspnea on exertion R06.09 [place] [id number] [place] [address] 82023- 4606 30 Nov, 2016 [place] [id number] [place] [address] 72660- 3783 Nov, [place] [id number] [place] [address] 40963- 1144 Nov, Gastroesophageal reflux disease, esophagitis presence not specified K21.9 and Bronchitis J40 [place] [address] 91521- 6916 15 Oct, 2016 Low back pain M54.5 and Anxiety disorder, unspecified F41.9 [place] [id number] [place] [address] 04702- 9712 10 Feb, 2017 Bronchitis J40 ; Hypertension I10 ; Sciatica M54.30 and Paresthesias R20.2 [facility] [id number] [place] [address] [id number] Sep, Dental examination Z01.20 [facility] [id number] [place] [address] [id number] Sep, Dental examination Z01.20 and Dental caries K02.9 [facility] [address] 38989- 0366 Aug, [facility] [id number] [place] [address] 33247- 1595 Jul, Low back pain M54.5 and Anxiety disorder, unspecified F41.9 [facility] [id number] [place] [address] 58732- 5285 Jul, [facility] [address] 49004- 0426 Jun, Lumbago with sciatica, right side M54.41 ; Cervical disc disease M50.90 and Gastroesophageal reflux disease, esophagitis presence not specified K21.9 [facility] [id number] [place] [address] 69012- 5153 Jun, [facility] [id number] [place] [address] 74675- 7164 Jun, [facility] [id number] [place] [address] 76268- 1062 Jun, [facility] [id number] [place] [address] 93452- 4870 18 Jun, 2016 [facility] [address] 96973- 8596 Jun, [facility] [id number] [place] [address] 60659- 0007 23 May, 2016 [facility] [id number] [place] [address] 25364- 8387 May, [facility] [address] [address]- 0061 May, [facility] [address] [place] [address] 24978- 7478 Apr, [facility] [address] [address]- 7518 Apr, [facility] [id number] [place] [address] 39408- 5418 Apr, [facility] [address] [place] [address] 02704- 8923 Apr, Cervical disc disease M50.90 [facility] [address] [place] [address] 99618- 3093 Apr, [facility] [address] [place] [address] 44738- 5707 Apr, Neck pain M54.2 ; Hypertension I10 and Reactive depression F32.9 [facility] [address] [place] [address] 57816- 4411 Mar, [facility] [id number] [place] [address] 70537- 9359 Mar, [facility] [address] [address]- 0617 Mar, [facility] [address] [place] [address] 82947- 3781 Feb, Sciatica M54.30 [facility] [address] [address]- 4980 Feb, Paresthesias R20.2 ; Sciatica M54.30 and Reactive depression F32.9 [facility] [address] [address]- 4934 Feb, [facility] [address] [place] [address] 26971- 5527 January, [facility] [id number] [place] [address] 74591- 2411 January, Hyperlipemia, mixed E78.2 ; Other abnormalities of heart beat R00.8 and Anxiety F41.9 [facility] [id number] [place] [address] 06619- 8046 January, [facility] [address] 66307- 2862 January, Low back pain M54.5 [facility] [id number] [place] [address] 98860- 0261 January, Anxiety disorder, unspecified F41.9 [facility] [id number] [place] [address] 96616- 6072 Dec, Ventricular bigeminy I49.9 [place] [address] 33137- 6577 Dec, [facility] [id number] [place] [address] 57980- 9261 Dec, Low back pain M54.5 [facility] [id number] [place] [address] 59752- 8876 Dec, Sciatica M54.30 [facility] [id number] [place] [address] 88791- 6750 Nov, Major depressive disorder, single episode, unspecified F32.9 [facility] [id number] [place] [address] 29037- 2072 14 Nov, 2015 Sciatica M54.30 [facility] [id number] [place] [address] 69571- 5825 14 Nov, 2015 [facility] [id number] [place] [address] 27960- 8384 Nov, [facility] [id number] [place] [address] 90184- 3710 Nov, Anxiety disorder, unspecified F41.9 [facility] [id number] [place] [address] 69566- 3656 Nov, [facility] [address] 66004- 0937 Nov, Depressed F32.9 and Anxiety F41.9 [facility] [address] 79534- 6291 Nov, Lumbago 724.2 ; Sciatica M54.30 and PVCs (premature ventricular contractions) I49.3 [facility] [id number] [place] [address] 29262- 3769 Oct, [facility] [address] 31710- 7091 Oct, [facility] [address] 16563- 9926 Oct, Sciatica M54.30 and Hypertension I10 [facility] [id number] [place] [address] 77912- 3148 Oct, [facility] [id number] [place] [address] 38987- 3586 Oct, [facility] [id number] [place] [address] 31280- 5274 Oct, [facility] [id number] [place] [address] 34792- 0842 Sep, [facility] [id number] [place] [address] 90090- 1849 Sep, [facility] [address] 40091- 7070 Sep, [facility] [id number] [place] [address] 86178- 5952 Sep, Ventricular arrhythmia I49.9 [facility] [id number] [place] [address] 04113- 1072 Sep, Ventricular bigeminy I49.9 and Hypertension I10 [facility] [id number] [place] [address] 42387- 4219 Sep, Lumbago M54.5 and Ventricular bigeminy I49.9 [facility] [id number] [place] [address] 26831- 2051 Sep, [facility] [id number] [place] [address] 59515- 0545 Aug, [facility] [address] [place] [address] 01700- 6084 Aug, [facility] [id number] [place] [address] 70913- 2228 Aug, [facility] [id number] [place] [address] 66039- 8239 Aug, [facility] [id number] [place] [address] 48983- 5537 Aug, [facility] [id number] [place] [address] 41906- 3455 Jul, [facility] [address] [place] [address] 67015- 5453 Jun, [facility] [address] [place] [address] 46023- 7809 14 May, 2015 [facility] [address] [place] [address] 63191- 1889 10 May, 2015 [facility] [address] [place] [address] 44304- 4415 May, Lumbago 724.2 and Depressive disorder, not elsewhere classified 311 [facility] [address] [address]- 4324 17 Apr, 2015 UTI (urinary tract infection) 599.0 [facility] [id number] [address]- 1190 Apr, UTI (urinary tract infection) 599.0 and Depression 311 [facility] [id number] [place] [address] 36663- 3386 Mar, [facility] [id number] [address]- 4395 Mar, [facility] [id number] [place] [address] 69115- 5599 Mar, [facility] [id number] [place] [address] 62408- 4402 Mar, Unspecified essential hypertension 401.9 ; Lumbago 724.2 and Anxiety 300.00 [facility] [address] [address]- 1170 Mar, [facility] [id number] [place] [address] 14731- 7865 Feb, [facility] [address] [place] [address] 41674- 8590 Feb, [facility] [id number] [place] [address] 78982- 3808 January, [facility] [address] [address]- 5316 Dec, [facility] [address] [place] [address] 72527- 1407 Dec, [facility] [address] [address]- 8708 Oct, [facility] [address] [place] [address] 17542- 0523 Oct, [facility] [address] 2511 Oct, [facility] [address] [place] [address] 17671- 3123 Oct, [facility] [place] [facility] [address] [id number] [place] [address]- 3023 Sep, [facility] [place] [facility] [address] [id number] [place] [address]- 5240 Sep, [facility] [place] [facility] [address] [id number] [place] [address]- 5847 Sep, [facility] [place] [facility] [address] [id number] [place] [address]- 6344 Sep, [facility] [place] [facility] [address] [id number] [place] [address]- 1651 Aug, [facility] [place] [facility] [address] [id number] [place] [address]- 7006 Aug, [facility] [place] [facility] [address] [id number] [place] [address]- 5185 Jul, [facility] [place] [facility] [address] [id number] [place] [address]- 9328 Jul, [facility] [place] [facility] [address] [id number] [place] [address]- 6217 Jun, [facility] [place] [facility] [address] [id number] [place] [address]- 0926 Jun, [facility] [place] [facility] [address] [id number] [address]- 5106 Jun, [facility] [place] [facility] [address] [id number] [address]- 7563 Jun, [facility] [place] [facility] [address] [id number] [place] [address]- 6055 Jun, [facility] [place] [facility] [address] [id number] [place] [address]- 3403 Jun, [facility] [place] [facility] [address] [id number] 6600 May, [facility] [place] [facility] [address] [id number] [place] [address]- 1144 May, [facility] [place] [facility] [address] [id number] [place] [address]- 3157 Apr, [facility] [place] [facility] [address] [id number] [place] [address]- 7210 Apr, [facility] [place] [facility] [address] [id number] [place] [address]- 0836 Apr, [facility] [place] [facility] [address] [id number] [place] [address]- 2881 Apr, [facility] [place] [facility] [address] [id number] [place] [address]- 3411 Mar, [facility] [place] [facility] [address] [id number] [place] [address]- 6866 Mar, [facility] [place] [facility] [address] [id number] [place] [address]- 2187 Mar, [facility] [place] [facility] [address] [id number] [place] [address]- 0056 Mar, [facility] [place] [facility] [address] [id number] [place] [address]- 8038 Mar, [facility] [place] [facility] [address] [id number] [place] [address]- 9710 Mar, [facility] [place] [facility] [address] [id number] [place] [address]- 2526 Mar, [facility] [place] [facility] [address] [id number] [place] [address]- 0092 Mar, [facility] [place] [facility] [address] [id number] [place] [address]- 3493 Feb, [facility] [place] [facility] [address] [id number] [place] [address]- 2615 Feb, [facility] [place] [facility] [address] [id number] [place] [address]- 2567 January, [facility] [place] [facility] [address] [id number] [place] [address]- 0824 January, [facility] [place] [facility] [address] [id number] [place] [address]- 8208 January, [facility] [place] [facility] [address] [id number] [place] [address]- 9966 January, [facility] [place] [facility] [address] [id number] [place] [address]- 5621 Dec, [facility] [place] [facility] [address] [id number] [place] [address]- 7291 Dec, [facility] [place] [facility] [address] [id number] [place] [address]- 4223 Dec, [facility] [place] [facility] [address] [id number] [place] [address]- 2270 Dec, [facility] [place] [facility] [address] [id number] [place] [address]- 8593 Nov, [facility] [place] [facility] [address] [id number] [place] [address]- 6606 Nov, [facility] [place] [facility] [address] [id number] [place] [address]- 5669 Sep, [facility] [place] [facility] [address] [id number] [place] [address]- 5306 Sep, [facility] [place] [facility] [address] [id number] [place] [address] Sep, [facility] [place] [facility] [address] [id number] [place] [address] Sep, [facility] [place] [facility] [address] [id number] [place] [address] Sep, [facility] [place] [facility] [address] [id number] [place] [address] Sep, [facility] [place] [facility] [address] [id number] [place] [address] Aug, [facility] [address] [id number] [place] [address] Aug, [facility] [place] [facility] [address] [id number] [place] [address] Aug, [facility] [place] [facility] [address] [id number] [place] [address] [address] Aug, [facility] [place] [facility] [address] [id number] [place] [address] Jul, [facility] [place] [facility] [address] [id number] [place] [address] Jul, [facility] [place] [facility] [address] [id number] [place] [address] Jun, [facility] [place] [facility] [address] [id number] [place] [address] Jun, [facility] [place] [facility] [address] [id number] [place] [address] Mar, [facility] [place] [facility] [address] [id number] [place] [address] January, [facility] [place] [facility] [address] [id number] [place] [address] Dec, [facility] [place] [facility] [address] [id number] [address] Dec, [facility] [place] [facility] [address] [id number] [place] [address] Nov, [facility] [place] [facility] [address] [id number] [place] [address] Nov, [facility] [place] [facility] [address] [id number] [place] [address] Oct, [facility] [place] [facility] [address] [id number] [place] [address] January, [facility] [place] [facility] [address] [facility] [id number] [place] [id number] Dec, [facility] [address] [facility] [id number] [place] [id number] Sep, IMMUNIZATIONS No Known Immunizations SOCIAL HISTORY Never Assessed REASON FOR VISIT Refill request PLAN OF CARE VITAL SIGNS MEDICATIONS Medication [...]
--- OUTSIDE RECORDS SUMMARY | 2018-08-12 07:10 | XMS REPORT ---
Author Author JOHANNY KINNEY Organization [facility] Address [address] [place] [address] Care Team Providers Care Stamping Mill Tender Name Role Phone JOHANNY KINNEY Unavailable PROBLEMS Type Condition ICD9-CM Code [id number]-IM Code Onset Dates Condition Status SNOMED Code Problem Cervical disc disease M50.90 Active 868098887 Problem Anxiety disorder, unspecified F41.9 Active 261852912 Problem Gastroesophageal reflux disease, esophagitis presence not specified K21.9 Active 568253695 Problem Pulmonary emphysema, unspecified emphysema type J43.9 Active 93231337 Problem Chronic maxillary sinusitis J32.0 Active 99205889 Problem Prediabetes R73.03 Active 131940278 Problem Mixed hyperlipidemia E78.2 Active 699147486 Problem Right maxillary sinusitis J32.0 Active 96387296 Problem Sinusitis chronic, frontal J32.1 Active 91983154 Problem Hypertension I10 Active 99972625 Problem Reactive depression F32.9 Active 26494613 Problem Lumbago with sciatica, right side M54.41 Active 433491095 Problem Sciatica M54.30 Active 97677691 Problem Other chronic pain G89.29 Active 87124017 Problem PVCs (premature ventricular contractions) I49.3 Active 17965178 Problem Neck pain M54.2 Active [id number] ALLERGIES No Information ENCOUNTERS Encounter Location Date Diagnosis [facility] [address], [place] [address] 11 May, 2018 Screening for breast cancer Z12.31 ; Well woman exam Z01.419 and Hypertension I10 [facility] [address], [place] [address] 10 May, 2018 Low back pain M54.5 [facility] [id number] [address] 05 May, 2018 Low back pain M54.5 [facility] [id number] [place] [address] 16494- 7542 Apr, [facility] [id number] [place] [address] 96114- 2869 Apr, [facility] [id number] [place] [address] 33637- 6599 Apr, Lumbago with sciatica, right side M54.41 ; Right maxillary sinusitis J32.0 ; Pulmonary emphysema, unspecified emphysema type J43.9 ; Hypertension I10 and Reactive depression F32.9 [facility] [id number] [place] [address] 12359- 4194 Apr, [facility] [id number] [place] [address] 88916- 9333 Apr, Low back pain M54.5 [facility] [id number] [place] [address] 43329- 5398 Apr, Low back pain M54.5 [facility] [id number] [place] [address] 85162- 3268 Mar, Gastroesophageal reflux disease, esophagitis presence not specified K21.9 and Low back pain M54.5 [facility] [id number] [place] [address] 00091 -9179 Feb, Chronic maxillary sinusitis J32.0 [facility] [id number] [place] [address] 08743- 1955 Feb, Low back pain M54.5 [facility] [id number] [place] [address] 18793- 4665 Feb, Low back pain M54.5 [facility] [id number] [place] [address] 00479- 7173 Feb, Low back pain M54.5 [facility] [id number] [place] [address] 80990- 1470 January, [facility] [id number] [place] [address] 42254- 8283 January, Sinusitis chronic, frontal J32.1 [facility] [address] 03957- 1782 January, Lumbago with sciatica, right side M54.41 ; Cervical disc disease M50.90 ; Hypertension I10 and Gastroesophageal reflux disease, esophagitis presence not specified K21.9 [facility] [address] 90702- 9186 Dec, Low back pain M54.5 [place] [address] 32915- 8692 Dec, Low back pain M54.5 [place] [address] 28965- 2420 Nov, [facility] [address] 97546 -5753 Nov, Right maxillary sinusitis J32.0 [facility] [address] 39241- 5217 Nov, Low back pain M54.5 [facility] [id number] [place] [address] 86935 -2550 Oct, Sinusitis chronic, frontal J32.1 [facility] [id number] [place] [address] 48749- 4123 Oct, Neck pain M54.2 [facility] [id number] [place] [address] 79740- 7245 Sep, Low back pain M54.5 [facility] [address] 78577- 5386 Sep, Neck pain M54.2 [facility] [id number] [place] [address] 03099- 7200 Sep, Lumbago with sciatica, right side M54.41 ; Hypertension I10 ; Bronchitis J40 and Anxiety disorder, unspecified F41.9 [facility] [address] 23995- 1755 13 Aug, 2017 Neck pain M54.2 and Low back pain M54.5 [facility] [address] 93557- 4416 16 Jul, 2017 Neck pain M54.2 and Low back pain M54.5 [facility] [address] 07477- 2706 06 Jul, 2017 Neck pain M54.2 [place] [address] 01714- 4640 Jun, Low back pain M54.5 and Neck pain M54.2 [facility] [facility] [address] 13109- 3753 22 May, 2017 Low back pain M54.5 and Neck pain M54.2 [facility] [address] 39804- 8572 21 May, 2017 [facility] [address] 84715 -8616 14 May, 2017 Bronchitis J40 [facility] [address] 75368- 0049 11 Apr, 2017 Hyperglycemia R73.9 [place] [facility] [address] 72831- 2079 08 Apr, 2017 Hyperglycemia R73.9 [facility] [address] 82951- 5571 Apr, Gastroesophageal reflux disease, esophagitis presence not specified K21.9 ; Mixed hyperlipidemia E78.2 ; Neck pain M54.2 and PVCs ( premature ventricular contractions) I49.3 [facility] [address] 27075- 2456 Mar, Low back pain M54.5 [facility] [facility] [id number] [place] [address] 65432- 2940 Feb, Low back pain M54.5 and Gastroesophageal reflux disease, esophagitis presence not specified K21.9 [facility] [id number] [place] [address] 74155- 8751 January, Dyspnea on exertion R06.09 [place] [facility] [address] 28893- 0237 January, Hypertension I10 [place] [facility] [address] 82330- 7547 January, [place] [address] 42445- 2474 January, Low back pain M54.5 [facility] [id number] [place] [address] 74334- 0899 January, Low back pain M54.5 [facility] [id number] [place] [address] 15451- 2378 05 Jan, 2017 Gastroesophageal reflux disease, esophagitis presence not specified K21.9 ; Lumbago with sciatica, right side M54.41 and Dyspnea on exertion R06.09 [place] [id number] [place] [address] 76701- 5375 30 Nov, 2016 [place] [id number] [place] [address] 09255- 6350 Nov, [facility] [id number] [place] [address] 19822- 6678 Nov, Gastroesophageal reflux disease, esophagitis presence not specified K21.9 and Bronchitis J40 [facility] [address] 42221- 4460 15 Oct, 2016 Low back pain M54.5 and Anxiety disorder, unspecified F41.9 [facility] [id number] [place] [address] 35745- 0284 10 Feb, 2017 Bronchitis J40 ; Hypertension I10 ; Sciatica M54.30 and Paresthesias R20.2 [facility] [id number] [place] [address] [id number] Sep, Dental examination Z01.20 [facility] [id number] [place] [address] [id number] Sep, Dental examination Z01.20 and Dental caries K02.9 [facility] [address] 45146- 8076 Aug, [facility] [id number] [place] [address] 87496- 8131 Jul, Low back pain M54.5 and Anxiety disorder, unspecified F41.9 [facility] [id number] [place] [address] 80520- 0160 Jul, [facility] [address] 43671- 0357 Jun, Lumbago with sciatica, right side M54.41 ; Cervical disc disease M50.90 and Gastroesophageal reflux disease, esophagitis presence not specified K21.9 [facility] [id number] [place] [address] 38489- 4557 Jun, [facility] [id number] [place] [address] 02149- 9531 Jun, [facility] [id number] [place] [address] 12408- 5619 Jun, [facility] [id number] [place] [address] 59380- 8151 18 Jun, 2016 [facility] [address] 59072- 0803 Jun, [facility] [id number] [place] [address] 89637- 2094 23 May, 2016 [facility] [id number] [place] [address] 30265- 0668 May, [facility] [address], [place] [address]- 3220 May, [facility] [id number] [place] [address] 51238- 0791 Apr, [facility] [address], [place] [address]- 7604 Apr, [facility] [id number] [place] [address] 05354- 7690 Apr, [facility] [id number] [place] [address] 56857- 6433 Apr, Cervical disc disease M50.90 [facility] [address] [place] [address] 93151- 6937 Apr, [facility] [id number] [place] [address] 90024- 2022 Apr, Neck pain M54.2 ; Hypertension I10 and Reactive depression F32.9 [facility] [id number] [place] [address] 36070- 3555 Mar, [facility] [id number] [place] [address] 14308- 3219 Mar, [facility] [address], [place] [address]- 4761 Mar, [facility] [address] [place] [address] 44801- 0561 Feb, Sciatica M54.30 [facility] [address], [place] [address]- 2786 Feb, Paresthesias R20.2 ; Sciatica M54.30 and Reactive depression F32.9 [facility] [address] [address]- 2606 Feb, [facility] [id number] [place] [address] 75143- 7287 January, [facility] [id number] [place] [address] 30396- 9585 January, Hyperlipemia, mixed E78.2 ; Other abnormalities of heart beat R00.8 and Anxiety F41.9 [facility] [id number] [place] [address] 03910- 0765 January, [facility] [address] 21253- 3185 January, Low back pain M54.5 [facility] [id number] [place] [address] 47360- 2368 January, Anxiety disorder, unspecified F41.9 [facility] [id number] [place] [address] 01720- 9537 Dec, Ventricular bigeminy I49.9 [place] [address] 08314- 1031 Dec, [facility] [id number] [place] [address] 90015- 8037 Dec, Low back pain M54.5 [facility] [id number] [place] [address] 53259- 7385 Dec, Sciatica M54.30 [facility] [id number] [place] [address] 16312- 7589 Nov, Major depressive disorder, single episode, unspecified F32.9 [facility] [id number] [place] [address] 41217- 8507 14 Nov, 2015 Sciatica M54.30 [facility] [id number] [place] [address] 04654- 2292 14 Nov, 2015 [facility] [id number] [place] [address] 06556- 6740 Nov, [facility] [id number] [place] [address] 83354- 8074 Nov, Anxiety disorder, unspecified F41.9 [facility] [id number] [place] [address] 14025- 6497 Nov, [facility] [address] 13717- 5326 Nov, Depressed F32.9 and Anxiety F41.9 [facility] [address] 11368- 5629 Nov, Lumbago 724.2 ; Sciatica M54.30 and PVCs (premature ventricular contractions) I49.3 [facility] [id number] [place] [address] 22891- 6038 Oct, [facility] [address] 70588- 1073 Oct, [facility] [address] 20754- 0726 Oct, Sciatica M54.30 and Hypertension I10 [facility] [id number] [place] [address] 20660- 2784 Oct, [facility] [id number] [place] [address] 65775- 4468 Oct, [facility] [id number] [place] [address] 64703- 5125 Oct, [facility] [id number] [place] [address] 61005- 5606 Sep, [facility] [id number] [place] [address] 56059- 9120 Sep, [facility] [address] 88805- 4958 Sep, [facility] [id number] [place] [address] 91877- 0500 Sep, Ventricular arrhythmia I49.9 [facility] [id number] [place] [address] 99619- 3828 Sep, Ventricular bigeminy I49.9 and Hypertension I10 [facility] [id number] [place] [address] 56201- 4070 Sep, Lumbago M54.5 and Ventricular bigeminy I49.9 [facility] [id number] [place] [address] 83638- 9048 Sep, [facility] [id number] [place] [address] 55072- 9958 Aug, [facility] [id number] [place] [address] 67085- 3519 Aug, [facility] [id number] [place] [address] 21560- 6268 Aug, [facility] [id number] [place] [address] 76406- 7908 Aug, [facility] [id number] [place] [address] 46938- 8012 Aug, [facility] [id number] [place] [address] 39124- 1508 Jul, [facility] [id number] [place] [address] 09489- 7807 Jun, [facility] [id number] [place] [address] 63615- 6336 14 May, 2015 [facility] [id number] [place] [address] 53073- 4095 10 May, 2015 [facility] [id number] [place] [address] 22273- 8226 May, Lumbago 724.2 and Depressive disorder, not elsewhere classified 311 [facility] [address], [place] [address]- 7947 17 Apr, 2015 UTI (urinary tract infection) 599.0 [facility] [id number], [place] [address]- 2381 Apr, UTI (urinary tract infection) 599.0 and Depression 311 [facility] [id number] [place] [address] 12793- 0891 Mar, [facility] [id number] [address]- 1462 Mar, [facility] [id number] [place] [address] 77273- 5864 Mar, [facility] [id number] [place] [address] 00157- 7332 Mar, Unspecified essential hypertension 401.9 ; Lumbago 724.2 and Anxiety 300.00 [facility] [address], [place] [address]- 0769 Mar, [facility] [id number] [place] [address] 37593- 1928 Feb, [facility] [id number] [place] [address] 52906- 0047 Feb, [facility] [id number] [place] [address] 75783- 8345 January, [facility] [address], [place] [address]- 8291 Dec, [facility] [id number] [place] [address] 11987- 6833 Dec, [facility] [address] [address]- 8205 Oct, [facility] [id number] [place] [address] 31954- 4250 Oct, [facility] [address] 9852 Oct, [facility] [id number] [place] [address] 39631- 0313 Oct, [facility] [place] [facility] [address] [id number] [place] [address]- 0537 Sep, [facility] [place] [facility] [address] [id number] [place] [address]- 5829 Sep, [facility] [place] [facility] [address] [id number] [place] [address]- 3215 Sep, [facility] [place] [facility] [address] [id number] [place] [address]- 0179 Sep, [facility] [place] [facility] [address] [id number] [place] [address]- 9140 Aug, [facility] [place] [facility] [address] [id number] [place] [address]- 9645 Aug, [facility] [place] [facility] [address] [id number] [place] [address]- 0485 Jul, [facility] [place] [facility] [address] [id number] [place] [address]- 1789 Jul, [facility] [place] [facility] [address] [id number] [place] [address]- 4309 Jun, [facility] [place] [facility] [address] [id number] [place] [address]- 9557 Jun, [facility] [place] [facility] [address] [id number], [place] [address]- 6803 Jun, [facility] [place] [facility] [address] [id number], [place] [address]- 5849 Jun, [facility] [place] [facility] [address] [id number] [place] [address]- 4243 Jun, [facility] [place] [facility] [address] [id number] [place] [address]- 6152 Jun, [facility] [place] [facility] [address] [id number] 8141 May, [facility] [place] [facility] [address] [id number], [place] [address]- 0375 May, [facility] [place] [facility] [address] [id number] [place] [address]- 3022 Apr, [facility] [place] [facility] [address] [id number] [place] [address]- 3947 Apr, [facility] [place] [facility] [address] [id number] [place] [address]- 6036 Apr, [facility] [place] [facility] [address] [id number] [place] [address]- 4921 Apr, [facility] [place] [facility] [address] [id number] [place] [address]- 7291 Mar, [facility] [place] [facility] [address] [id number] [place] [address]- 9295 Mar, [facility] [place] [facility] [address] [id number] [place] [address]- 2173 Mar, [facility] [place] [facility] [address] [id number] [place] [address]- 2922 Mar, [facility] [place] [facility] [address] [id number] [place] [address]- 4567 Mar, [facility] [place] [facility] [address] [id number] [place] [address]- 8944 Mar, [facility] [place] [facility] [address] [id number] [place] [address]- 5982 Mar, [facility] [place] [facility] [address] [id number] [place] [address]- 5252 Mar, [facility] [place] [facility] [address] [id number] [place] [address]- 3698 Feb, [facility] [place] [facility] [address] [id number] [place] [address]- 5741 Feb, [facility] [place] [facility] [address] [id number] [place] [address]- 2879 January, [facility] [place] [facility] [address] [id number] [place] [address]- 8815 January, [facility] [place] [facility] [address] [id number] [place] [address]- 5832 January, [facility] [place] [facility] [address] [id number] [place] [address]- 3546 January, [facility] [place] [facility] [address] [id number] [place] [address]- 0483 Dec, [facility] [place] [facility] [address] [id number] [place] [address]- 2657 Dec, [facility] [place] [facility] [address] [id number] [place] [address]- 6395 Dec, [facility] [place] [facility] [address] [id number] [place] [address]- 9399 Dec, [facility] [place] [facility] [address] [id number] [place] [address]- 0966 Nov, [facility] [place] [facility] [address] [id number] [place] [address]- 1637 Nov, [facility] [place] [facility] [address] [id number] [place] [address]- 1106 Sep, [facility] [place] [facility] [address] [id number] [place] [address]- 3232 Sep, [facility] [place] [facility] [address] [id number] [place] [address]- 9051 Sep, [facility] [facility] [address] [id number] [place] [address] Sep, [facility] [place] [facility] [address] [id number] [place] [address] Sep, [facility] [place] [facility] [address] [id number] [place] [address] Sep, [facility] [place] [facility] [address] [id number] [place] [address] Aug, [facility] [address] [id number] [place] [address] Aug, [facility] [place] [facility] [address] [id number] [place] [address] Aug, [facility] [place] [facility] [address] [id number] [place] Aug, [facility] [place] [facility] [address] [id number] [place] [address] Jul, [facility] [place] [facility] [address] [id number] [place] [address] Jul, [facility] [place] [facility] [address] [id number] [place] [address] Jun, [facility] [place] [facility] [address] [id number] [place] [address] Jun, [facility] [place] [facility] [address] [id number] [place] [address] Mar, [facility] [place] [facility] [address] [id number] [place] [address] January, [facility] [place] [facility] [address] [id number] [place] [address] Dec, [facility] [place] [facility] [address] [id number], [place] [address] Dec, [facility] [place] [facility] [address] [id number], [place] [address] Nov, [facility] [place] [facility] [address] [id number] [place] [address] Nov, [facility] [facility] [address] [id number], [place] [address] Oct, [facility] [place] [facility] [address] [id number] [place] [address] January, [facility] [facility] [address] [facility] [id number] [place] [address] Dec, [facility] [address] [facility] [id number] [place] [address] Sep, IMMUNIZATIONS No Known Immunizations SOCIAL HISTORY Never Assessed REASON FOR VISIT Requests return call PLAN OF CARE VITAL SIGNS MEDICATIONS No Known Medications RESULTS No Results PROCEDURES No Known [...]
--- OUTSIDE RECORDS SUMMARY | 2018-08-12 07:11 | XMS REPORT ---
Author Author JOHANNY KINNEY Organization [facility] Address [address] [place] [address] Care Team Providers Care Coil Connector Name Role Phone JOHANNY KINNEY Unavailable PROBLEMS Type Condition ICD9-CM Code ABS05-KV Code Onset Dates Condition Status SNOMED Code Problem Cervical disc disease M50.90 Active 906390520 Problem Anxiety disorder, unspecified F41.9 Active 430870498 Problem Gastroesophageal reflux disease, esophagitis presence not specified K21.9 Active 907581142 Problem Pulmonary emphysema, unspecified emphysema type J43.9 Active 40969526 Problem Chronic maxillary sinusitis J32.0 Active 81365914 Problem Prediabetes R73.03 Active 932102220 Problem Mixed hyperlipidemia E78.2 Active 387626722 Problem Right maxillary sinusitis J32.0 Active 52230299 Problem Sinusitis chronic, frontal J32.1 Active 65048229 Problem Hypertension I10 Active 55610353 Problem Reactive depression F32.9 Active 84336895 Problem Lumbago with sciatica, right side M54.41 Active 456601832 Problem Sciatica M54.30 Active 41933037 Problem Other chronic pain G89.29 Active 75495794 Problem PVCs (premature ventricular contractions) I49.3 Active 16650828 Problem Neck pain M54.2 Active [id number] ALLERGIES No Information ENCOUNTERS Encounter Location Date Diagnosis [facility] [id number], [place] [address] 11 May, 2018 Screening for breast cancer Z12.31 ; Well woman exam Z01.419 and Hypertension I10 [facility] [id number], [place] [address] 10 May, 2018 Low back pain M54.5 [facility] [id number], [place] [address] 05 May, 2018 Low back pain M54.5 [facility] [id number] [place] [address] 47026- 2975 Apr, [facility] [id number] [place] [address] 74284- 4133 Apr, [facility] [id number] [place] [address] 10233- 7285 Apr, Lumbago with sciatica, right side M54.41 ; Right maxillary sinusitis J32.0 ; Pulmonary emphysema, unspecified emphysema type J43.9 ; Hypertension I10 and Reactive depression F32.9 [facility] [id number] [place] [address] 99227- 6116 Apr, [facility] [id number] [place] [address] 23929- 5364 Apr, Low back pain M54.5 [facility] [id number] [place] [address] 34158- 4932 Apr, Low back pain M54.5 [facility] [id number] [place] [address] 20775- 6893 Mar, Gastroesophageal reflux disease, esophagitis presence not specified K21.9 and Low back pain M54.5 [facility] [id number] [place] [address] 08196 -8519 Feb, Chronic maxillary sinusitis J32.0 [facility] [id number] [place] [address] 78411- 1877 Feb, Low back pain M54.5 [facility] [id number] [place] [address] 52180- 0718 Feb, Low back pain M54.5 [facility] [id number] [place] [address] 76344- 3925 Feb, Low back pain M54.5 [facility] [id number] [place] [address] 61584- 1819 January, [facility] [id number] [place] [address] 35009- 1975 January, Sinusitis chronic, frontal J32.1 [facility] [address] 94432- 3874 January, Lumbago with sciatica, right side M54.41 ; Cervical disc disease M50.90 ; Hypertension I10 and Gastroesophageal reflux disease, esophagitis presence not specified K21.9 [facility] [address] 08088- 2899 Dec, Low back pain M54.5 [place] [address] 06981- 4383 Dec, Low back pain M54.5 [place] [address] 20541- 9901 Nov, [facility] [address] 14490 -4450 Nov, Right maxillary sinusitis J32.0 [facility] [address] 89937- 3406 Nov, Low back pain M54.5 [facility] [id number] [place] [address] 53399 -6040 Oct, Sinusitis chronic, frontal J32.1 [facility] [id number] [place] [address] 36645- 4471 Oct, Neck pain M54.2 [facility] [id number] [place] [address] 91141- 0289 Sep, Low back pain M54.5 [facility] [address] 15125- 9226 Sep, Neck pain M54.2 [facility] [id number] [place] [address] 61472- 8773 Sep, Lumbago with sciatica, right side M54.41 ; Hypertension I10 ; Bronchitis J40 and Anxiety disorder, unspecified F41.9 [facility] [address] 42868- 2006 13 Aug, 2017 Neck pain M54.2 and Low back pain M54.5 [facility] [address] 93217- 9360 16 Jul, 2017 Neck pain M54.2 and Low back pain M54.5 [facility] [address] 27221- 2192 06 Jul, 2017 Neck pain M54.2 [place] [address] 92026- 8154 Jun, Low back pain M54.5 and Neck pain M54.2 [place] [address] 79427- 8781 22 May, 2017 Low back pain M54.5 and Neck pain M54.2 [facility] [address] 07250- 9531 21 May, 2017 [facility] [address] 87717 -0391 14 May, 2017 Bronchitis J40 [facility] [address] 38941- 7209 11 Apr, 2017 Hyperglycemia R73.9 [place] [address] 78609- 3091 08 Apr, 2017 Hyperglycemia R73.9 [place] [address] 17677- 6072 Apr, Gastroesophageal reflux disease, esophagitis presence not specified K21.9 ; Mixed hyperlipidemia E78.2 ; Neck pain M54.2 and PVCs ( premature ventricular contractions) I49.3 [facility] [address] 37023- 2118 Mar, Low back pain M54.5 [place] [id number] [place] [address] 29572- 2735 Feb, Low back pain M54.5 and Gastroesophageal reflux disease, esophagitis presence not specified K21.9 [facility] [id number] [place] [address] 50074- 0557 January, Dyspnea on exertion R06.09 [place] [address] 44307- 4628 January, Hypertension I10 [place] [address] 01071- 1778 January, [place] [address] 76391- 4968 January, Low back pain M54.5 [place] [id number] [place] [address] 37133- 4551 January, Low back pain M54.5 [place] [id number] [place] [address] 64205- 6568 05 Jan, 2017 Gastroesophageal reflux disease, esophagitis presence not specified K21.9 ; Lumbago with sciatica, right side M54.41 and Dyspnea on exertion R06.09 [place] [id number] [place] [address] 47591- 1875 30 Nov, 2016 [place] [facility] [id number] [place] [address] 57258- 7066 Nov, [place] [facility] [id number] [place] [address] 79537- 9485 Nov, Gastroesophageal reflux disease, esophagitis presence not specified K21.9 and Bronchitis J40 [place] [address] 45824- 8474 15 Oct, 2016 Low back pain M54.5 and Anxiety disorder, unspecified F41.9 [place] [id number] [place] [address] 39067- 0444 10 Feb, 2017 Bronchitis J40 ; Hypertension I10 ; Sciatica M54.30 and Paresthesias R20.2 [facility] [id number] [place] [address] [id number] Sep, Dental examination Z01.20 [facility] [id number] [place] [address] [id number] Sep, Dental examination Z01.20 and Dental caries K02.9 [facility] [address] 68916- 1561 Aug, [facility] [id number] [place] [address] 35015- 4783 Jul, Low back pain M54.5 and Anxiety disorder, unspecified F41.9 [facility] [id number] [place] [address] 33388- 3347 Jul, [facility] [address] 27487- 9693 Jun, Lumbago with sciatica, right side M54.41 ; Cervical disc disease M50.90 and Gastroesophageal reflux disease, esophagitis presence not specified K21.9 [facility] [id number] [place] [address] 17602- 8065 Jun, [facility] [id number] [place] [address] 07424- 4772 Jun, [facility] [id number] [place] [address] 91725- 9907 Jun, [facility] [id number] [place] [address] 30460- 0652 18 Jun, 2016 [facility] [address] 80302- 6832 Jun, [facility] [id number] [place] [address] 41600- 3176 23 May, 2016 [facility] [id number] [place] [address] 03385- 1154 May, [facility] [address], [place] [address]- 5748 May, [facility] [id number] [place] [address] 43746- 7324 Apr, [facility] [address], [place] [address]- 9330 Apr, [facility] [id number] [place] [address] 64887- 2324 Apr, [facility] [id number] [place] [address] 95410- 3310 Apr, Cervical disc disease M50.90 [facility] [id number] [place] [address] 28737- 1653 Apr, [facility] [id number] [place] [address] 69744- 0437 Apr, Neck pain M54.2 ; Hypertension I10 and Reactive depression F32.9 [facility] [id number] [place] [address] 50541- 4427 Mar, [facility] [id number] [place] [address] 30030- 2068 Mar, [facility] [address], [place] [address]- 8101 Mar, [facility] [id number] [place] [address] 99355- 1280 Feb, Sciatica M54.30 [facility] [address], [place] [address]- 8940 Feb, Paresthesias R20.2 ; Sciatica M54.30 and Reactive depression F32.9 [facility] [address], [place] [address]- 6203 Feb, [facility] [id number] [place] [address] 41508- 1199 January, [facility] [id number] [place] [address] 43914- 3130 January, Hyperlipemia, mixed E78.2 ; Other abnormalities of heart beat R00.8 and Anxiety F41.9 [facility] [id number] [place] [address] 60336- 4952 January, [facility] [address] 73456- 1997 January, Low back pain M54.5 [facility] [id number] [place] [address] 74923- 1151 January, Anxiety disorder, unspecified F41.9 [facility] [id number] [place] [address] 69506- 1928 Dec, Ventricular bigeminy I49.9 [place] [address] 90665- 2657 Dec, [facility] [id number] [place] [address] 41300- 5112 Dec, Low back pain M54.5 [facility] [id number] [place] [address] 68567- 8429 Dec, Sciatica M54.30 [facility] [id number] [place] [address] 71391- 7744 Nov, Major depressive disorder, single episode, unspecified F32.9 [facility] [id number] [place] [address] 14514- 8384 14 Nov, 2015 Sciatica M54.30 [facility] [id number] [place] [address] 76186- 9367 14 Nov, 2015 [facility] [id number] [place] [address] 57321- 2502 Nov, [facility] [id number] [place] [address] 03631- 6558 Nov, Anxiety disorder, unspecified F41.9 [facility] [id number] [place] [address] 06543- 3139 Nov, [facility] [address] 93893- 7612 Nov, Depressed F32.9 and Anxiety F41.9 [facility] [address] 67228- 0304 Nov, Lumbago 724.2 ; Sciatica M54.30 and PVCs (premature ventricular contractions) I49.3 [facility] [id number] [place] [address] 99928- 8281 Oct, [facility] [address] 62276- 3080 Oct, [facility] [address] 95322- 0763 Oct, Sciatica M54.30 and Hypertension I10 [facility] [id number] [place] [address] 87289- 6137 Oct, [facility] [id number] [place] [address] 50439- 8648 Oct, [facility] [id number] [place] [address] 98192- 8283 Oct, [facility] [id number] [place] [address] 83803- 3001 Sep, [facility] [id number] [place] [address] 16501- 5184 Sep, [facility] [address] 60103- 5579 Sep, [facility] [id number] [place] [address] 26569- 4428 Sep, Ventricular arrhythmia I49.9 [facility] [id number] [place] [address] 86558- 1865 Sep, Ventricular bigeminy I49.9 and Hypertension I10 [facility] [id number] [place] [address] 61147- 1664 Sep, Lumbago M54.5 and Ventricular bigeminy I49.9 [facility] [id number] [place] [address] 72888- 0492 Sep, [facility] [id number] [place] [address] 10240- 1192 Aug, [facility] [id number] [place] [address] 08419- 7503 Aug, [facility] [id number] [place] [address] 30803- 8670 Aug, [facility] [id number] [place] [address] 40470- 8164 Aug, [facility] [id number] [place] [address] 41587- 0819 Aug, [facility] [id number] [place] [address] 17837- 3902 Jul, [facility] [id number] [place] [address] 05328- 1705 Jun, [facility] [id number] [place] [address] 51213- 3262 14 May, 2015 [facility] [id number] [place] [address] 85459- 7354 10 May, 2015 [facility] [id number] [place] [address] 44867- 5087 May, Lumbago 724.2 and Depressive disorder, not elsewhere classified 311 [facility] [address], [place] [address]- 8793 17 Apr, 2015 UTI (urinary tract infection) 599.0 [facility] [id number], [place] [address]- 1431 Apr, UTI (urinary tract infection) 599.0 and Depression 311 [facility] [id number] [place] [address] 29976- 6412 Mar, [facility] [id number], [place] [address]- 8812 Mar, [facility] [id number] [place] [address] 88675- 3674 Mar, [facility] [id number] [place] [address] 33797- 9770 Mar, Unspecified essential hypertension 401.9 ; Lumbago 724.2 and Anxiety 300.00 [facility] [address], [place] [address]- 4804 Mar, [facility] [id number] [place] [address] 38942- 8012 Feb, [facility] [id number] [place] [address] 28734- 3749 Feb, [facility] [id number] [place] [address] 08083- 0357 January, [facility] [address], [place] [address]- 6959 Dec, [facility] [id number] [place] [address] 86781- 8122 Dec, [facility] [address], [place] [address]- 0543 Oct, [facility] [id number] [place] [address] 76370- 9604 Oct, [facility] [address] 5113 Oct, [facility] [id number] [place] [address] 39423- 0050 Oct, [facility] [place] [facility] [address] [id number] [place] [address]- 8085 Sep, [facility] [place] [facility] [address] [id number] [place] [address]- 2368 Sep, [facility] [place] [facility] [address] [id number] [place] [address]- 0470 Sep, [facility] [place] [facility] [address] [id number] [place] [address]- 0891 Sep, [facility] [place] [facility] [address] [id number] [place] [address]- 8044 Aug, [facility] [place] [facility] [address] [id number] [place] [address]- 9374 Aug, [facility] [place] [facility] [address] [id number] [place] [address]- 9437 Jul, [facility] [place] [facility] [address] [id number] [place] [address]- 4220 Jul, [facility] [place] [facility] [address] [id number] [place] [address]- 6119 Jun, [facility] [place] [facility] [address] [id number] [place] [address]- 4239 Jun, [facility] [place] [facility] [address] [id number], [place] [address]- 1386 Jun, [facility] [place] [facility] [address] [id number], [place] [address]- 7129 Jun, [facility] [place] [facility] [address] [id number] [place] [address]- 8082 Jun, [facility] [place] [facility] [address] [id number] [place] [address]- 7681 Jun, [facility] [place] [facility] [address] [id number] 0716 May, [facility] [place] [facility] [address] [id number], [place] [address]- 7757 May, [facility] [place] [facility] [address] [id number] [place] [address]- 4328 Apr, [facility] [place] [facility] [address] [id number] [place] [address]- 7444 Apr, [facility] [place] [facility] [address] [id number] [place] [address]- 5777 Apr, [facility] [place] [facility] [address] [id number] [place] [address]- 4726 Apr, [facility] [place] [facility] [address] [id number] [place] [address]- 0186 Mar, [facility] [place] [facility] [address] [id number] [place] [address]- 3629 Mar, [facility] [place] [facility] [address] [id number] [place] [address]- 2646 Mar, [facility] [place] [facility] [address] [id number] [place] [address]- 6832 Mar, [facility] [place] [facility] [address] [id number] [place] [address]- 6269 Mar, [facility] [place] [facility] [address] [id number] [place] [address]- 6399 Mar, [facility] [place] [facility] [address] [id number] [place] [address] Mar, [facility] [place] [facility] [address] [id number] [place] [address] Mar, [facility] [place] [facility] [address] [id number] [place] [address] Feb, [facility] [place] [facility] [address] [id number] [place] [address] Feb, [facility] [place] [facility] [address] [id number] [place] [address] January, [facility] [place] [facility] [address] [id number] [place] [address] January, [facility] [place] [facility] [address] [id number] [place] [address] January, [facility] [place] [facility] [address] [id number] [place] [address] January, [facility] [place] [facility] [address] [id number] [place] [address] Dec, [facility] [place] [facility] [address] [id number] [place] [address] Dec, [facility] [place] [facility] [address] [id number] [place] [address] Dec, [facility] [place] [facility] [address] [id number] [place] [address] Dec, [facility] [place] [facility] [address] [id number] [place] [address] Nov, [facility] [place] [facility] [address] [id number] [place] [address] Nov, [facility] [place] [facility] [address] [id number] [place] [address] Sep, [facility] [place] [facility] [address] [id number] [place] [address] Sep, [facility] [place] [facility] [address] [id number] [place] [address] Sep, [facility] [place] [facility] [address] [id number] [place] [address] Sep, [facility] [place] [facility] [address] [id number] [place] [address] Sep, [facility] [place] [facility] [address] [id number] [place] [address] Sep, [facility] [place] [facility] [address] [id number] [place] [address] Aug, [facility] [address] [id number] [place] [address] Aug, [facility] [place] [facility] [address] [id number] [place] [address]- [address] Aug, [facility] [place] [facility] [address] [id number] [place] [address] Aug, [facility] [place] [facility] [address] [id number] [place] [address] Jul, [facility] [place] [facility] [address] [id number] [place] [address] Jul, [facility] [place] [facility] [address] [id number] [place] [address] Jun, [facility] [place] [facility] [address] [id number] [place] [address] Jun, [facility] [place] [facility] [address] [id number] [place] [address] Mar, [facility] [place] [facility] [address] [id number] [place] [address] January, [facility] [place] [facility] [address] [id number] [place] [address] Dec, [facility] [place] [facility] [address] [id number], [place] [address] Dec, [facility] [place] [facility] [address] [id number], [place] [address] Nov, [facility] [place] [facility] [address] [id number] [place] [address] Nov, [facility] [place] [facility] [address] [id number], [place] [address] Oct, [facility] [place] [facility] [address] [id number] [place] [address] January, [facility] [place] [facility] [address] [facility] [place] [id number] [place] [address] Dec, [facility] [address] [facility] [place] [id number] [place] [id number] Sep, IMMUNIZATIONS No Known Immunizations SOCIAL HISTORY [...]
--- OUTSIDE RECORDS SUMMARY | 2018-08-12 07:11 | XMS REPORT ---
Author Author JOHANNY KINNEY Organization [facility] [place] Address [address] [place] [address] Care Team Providers Care Instrument Assembly Supervisor Name Role Phone JOHANNY KINNEY Unavailable PROBLEMS Type Condition ICD9-CM Code HEI09-GO Code Onset Dates Condition Status SNOMED Code Problem Cervical disc disease M50.90 Active 181324354 Problem Anxiety disorder, unspecified F41.9 Active 494014054 Problem Gastroesophageal reflux disease, esophagitis presence not specified K21.9 Active 624766770 Problem Pulmonary emphysema, unspecified emphysema type J43.9 Active 08804677 Problem Chronic maxillary sinusitis J32.0 Active 98997426 Problem Prediabetes R73.03 Active 018683438 Problem Mixed hyperlipidemia E78.2 Active 233295139 Problem Right maxillary sinusitis J32.0 Active 24898915 Problem Sinusitis chronic, frontal J32.1 Active 41308868 Problem Hypertension I10 Active 09358636 Problem Reactive depression F32.9 Active 34815353 Problem Lumbago with sciatica, right side M54.41 Active 022390427 Problem Sciatica M54.30 Active 86758506 Problem Other chronic pain G89.29 Active 20618049 Problem PVCs (premature ventricular contractions) I49.3 Active 76593234 Problem Neck pain M54.2 Active [id number] ALLERGIES No Information ENCOUNTERS Encounter Location Date Diagnosis [facility] [place] [address] [facility] [id number] [address] Apr, [facility] [place] [address] [address] Apr, [facility] [place] [address] [address] Apr, Lumbago with sciatica, right side M54.41 ; Right maxillary sinusitis J32.0 ; Pulmonary emphysema, unspecified emphysema type J43.9 ; Hypertension I10 and Reactive depression F32.9 [facility] [place] [address] [address] Apr, [facility] [place] [address] [address]- 12[address] Apr, Low back pain M54.5 [facility] [place] [address] [address] 8869 Apr, Low back pain M54.5 [facility] [place] [address] [address] Mar, Gastroesophageal reflux disease, esophagitis presence not specified K21.9 and Low back pain M54.5 [facility] WALK IN [facility] [address] [address] Feb, Chronic maxillary sinusitis J32.0 [facility] [place] [address] [address] 0324 Feb, Low back pain M54.5 [facility] [place] [address] [address]- 1155 Feb, Low back pain M54.5 [place] [address] [address] 6[address] Feb, Low back pain M54.5 [facility] [place] [address] [address]- 3[address] January, [facility] [place] [address] [address]- 0038 January, Sinusitis chronic, frontal J32.1 [facility] [place] [address] [address]- 120[address] January, Lumbago with sciatica, right side M54.41 ; Cervical disc disease M50.90 ; Hypertension I10 and Gastroesophageal reflux disease, esophagitis presence not specified K21.9 [facility] [place] [address] [address]- [address] Dec, Low back pain M54.5 [facility] [place] [id number] [place] [address]00- 5862 Dec, Low back pain M54.5 [facility] [place] [id number] [place] [address] 27322- 6530 Nov, [facility] IN CARE [address] [address] Nov, Right maxillary sinusitis J32.0 [facility] [place] [id number] [place] [address] 07254- 5972 Nov, Low back pain M54.5 [facility] WALK IN [facility] [id number] [place] [address]86 [address]455 Oct, Sinusitis chronic, frontal J32.1 [place] [address] [address]- 1629 Oct, Neck pain M54.2 [facility] [place] [id number] [place] [address] 13991- 0732 Sep, Low back pain M54.5 [place] [address] [address] [id number] [place] [address] 33672- 6792 Sep, Neck pain M54.2 [place] [address] [address] [id number] [place] [address] 83900- 9726 Sep, Lumbago with sciatica, right side M54.41 ; Hypertension I10 ; Bronchitis J40 and Anxiety disorder, unspecified F41.9 [facility] [place] [id number] [place] [address] 82740- 8387 Aug, Neck pain M54.2 and Low back pain M54.5 [facility] [place] [id number] [place] [address] 24786- 8325 Jul, Neck pain M54.2 and Low back pain M54.5 [facility] [place] [address] [place] [address]- 1534 Jul, Neck pain M54.2 [facility] [place] [address] 32[address]- 9280 Jun, Low back pain M54.5 and Neck pain M54.2 [facility] [place] [id number] [place] [address] 85017- 4568 May, Low back pain M54.5 and Neck pain M54.2 [facility] [place] [address] 6[address]- 7138 21 May, 2017 [facility] WALK IN [facility] [address] [address]68 14 May, 2017 Bronchitis J40 [facility] [place] [address] 32946- 2730 11 Apr, 2017 Hyperglycemia R73.9 [place] [address] [address]- 2425 08 Apr, 2017 Hyperglycemia R73.9 [place] [address] 38982- 3169 07 Apr, 2017 Gastroesophageal reflux disease, esophagitis presence not specified K21.9 ; Mixed hyperlipidemia E78.2 ; Neck pain M54.2 and PVCs ( premature ventricular contractions) I49.3 [place] [address] [place] [id number] [place] [address] 67543- 4700 Mar, Low back pain M54.5 [facility] [place] [id number] [place] [address] 96189- 1618 Feb, Low back pain M54.5 and Gastroesophageal reflux disease, esophagitis presence not specified K21.9 [place] [address] 0[address]- 0774 January, Dyspnea on exertion R06.09 [facility] [place] [id number] [place] [address] 06730- 9386 January, Hypertension I10 [place] [address] [place] [address] [id number] [place] [address] 69307- 6205 January, [facility] [place] [address] [address]- 1827 January, Low back pain M54.5 [facility] [place] [id number] [place] [address] 18174- 2145 January, Low back pain M54.5 [facility] [place] [address] 53163- 5498 January, Gastroesophageal reflux disease, esophagitis presence not specified K21.9 ; Lumbago with sciatica, right side M54.41 and Dyspnea on exertion R06.09 [place] [address] [address]- 1966 Nov, [place] [address] 63279- 7209 Nov, [facility] [place] [address] [address]- 4890 Nov, Gastroesophageal reflux disease, esophagitis presence not specified K21.9 and Bronchitis J40 [place] [address] [place] [id number] [place] [address] 91435- 6192 15 Oct, 2016 Low back pain M54.5 and Anxiety disorder, unspecified F41.9 [place] [address] [place] [address] [id number] [place] [address] 10515- 3410 10 Oct, 2016 Bronchitis J40 ; Hypertension I10 ; Sciatica M54.30 and Paresthesias R20.2 [facility] [id number] [place] [address] [id number] Sep, Dental examination Z01.20 [facility] [address] [id number] Sep, Dental examination Z01.20 and Dental caries K02.9 [facility] [place] [id number] [place] [address] 07340- 1913 Aug, [facility] [place] [address] [facility] [id number] [address] Jul, Low back pain M54.5 and Anxiety disorder, unspecified F41.9 [facility] [place] [id number] [place] [address], [place] [address]- 9858 Jul, [facility] [place] [id number] [place] [address], [place] [address]- 2631 Jun, Lumbago with sciatica, right side M54.41 ; Cervical disc disease M50.90 and Gastroesophageal reflux disease, esophagitis presence not specified K21.9 [facility] [place] [id number] [place] [address], [place] [address]- 2620 Jun, [facility] [place] [address] [id number] [place] [address], [place] [address]- 0599 Jun, [facility] [place] [id number] [place] [address], [place] [address]- 0495 Jun, [facility] [place] [id number] [place] [address], [place] [address]- 5483 Jun, [facility] [place] [id number] [place] [address], [place] [address]- 7950 Jun, [facility] [place] [id number] [place] [address]- 2724 May, [facility] [place] [id number] [place] [address], [place] [address]- 7920 May, [facility] [place] [address] [id number] [address]- 5913 May, [facility] [place] [id number] [place] [address], [place] [address]- 4407 Apr, [facility] [place] [address] [facility] [id number] [place] [address]- 3317 Apr, [facility] [place] [address], [place] [address]- 9597 Apr, [facility] [place] [id number] [place] [address] 59727- 7891 Apr, Cervical disc disease M50.90 [facility] [place] [id number] [place] [address] 05482- 1762 Apr, [facility] [place] [id number] [place] [address] 48772- 5720 Apr, Neck pain M54.2 ; Hypertension I10 and Reactive depression F32.9 [facility] [place] [id number] [place] [address] 39550- 3100 Mar, [facility] [place] [address] 16421- 2513 Mar, [facility] [place] [address] [address] [id number] [place] [address] 10640- 1531 Mar, [facility] [place] [address] 43912- 3884 Feb, Sciatica M54.30 [facility] [place] [address] [place] [address] [id number] [place] [address] 98408- 9059 Feb, Paresthesias R20.2 ; Sciatica M54.30 and Reactive depression F32.9 [facility] [place] [id number] [place] [address] 03273- 2289 Feb, [facility] [place] [id number] [place] [address] 98561- 1925 January, [facility] [place] [id number] [place] [address] 01022- 6231 January, Hyperlipemia, mixed E78.2 ; Other abnormalities of heart beat R00.8 and Anxiety F41.9 [facility] [place] [id number] [place] [address] 84710- 0946 January, [facility] [place] [id number] [place] [address] 96546- 0188 January, Low back pain M54.5 [facility] [place] [id number] [place] [address] 34275- 3892 January, Anxiety disorder, unspecified F41.9 [facility] [place] [id number] [place] [address] 09341- 2603 Dec, Ventricular bigeminy I49.9 [facility] [place] [address] 18662- 7040 Dec, [facility] [place] [address] 41459- 1038 Dec, Low back pain M54.5 [place] [address] 61988- 5743 Dec, Sciatica M54.30 [place] [address] 33554- 0100 Nov, Major depressive disorder, single episode, unspecified F32.9 [facility] [place] [id number] [place] [address] 02940- 0250 Nov, Sciatica M54.30 [facility] [place] [address] 76456- 4281 Nov, [facility] [place] [id number] [place] [address] 83284- 8723 Nov, [place] [address] [id number] [place] [address] 19323- 0817 Nov, Anxiety disorder, unspecified F41.9 [facility] [place] [id number] [place] [address] 28801- 1327 Nov, [facility] [place] [address] 66949- 8184 Nov, Depressed F32.9 and Anxiety F41.9 [facility] [place] [id number] [place] [address] 48664- 0158 Nov, Lumbago 724.2 ; Sciatica M54.30 and PVCs (premature ventricular contractions) I49.3 [facility] [place] [id number] [place] [address] 17006- 2140 Oct, [facility] [place] [address] 75744- 8332 Oct, [facility] [place] [address] 30640- 2688 Oct, Sciatica M54.30 and Hypertension I10 [facility] [place] [address] 49368- 8717 Oct, [facility] [place] [address] 93393- 4765 Oct, [facility] [place] [address] 25419- 9343 Oct, [facility] [place] [address] 82617- 3548 Sep, [facility] [place] [id number] [place] [address] 23882- 5711 Sep, [facility] [place] [address] 68081- 3690 Sep, [facility] [place] [id number] [place] [address] 98217- 2309 Sep, Ventricular arrhythmia I49.9 [facility] [place] [address] 76536- 2744 Sep, Ventricular bigeminy I49.9 and Hypertension I10 [facility] [place] [id number] [place] [address] 14727- 9772 Sep, Lumbago M54.5 and Ventricular bigeminy I49.9 [facility] [place] [id number] [place] [address] 19614- 3017 Sep, [facility] [place] [address] 93903- 7196 Aug, [facility] [place] [address] [facility] [id number], [place] [address]- 5115 Aug, [facility] [place] [address] [facility] [id number] [address]- 8029 Aug, [facility] [place] [address] [id number] [address]- 3845 Aug, [facility] [place] [address] [facility] [id number] [address]- 6415 Aug, [facility] [place] [id number] [address]- 6023 Jul, [facility] [place] [id number] [address]- 4469 Jun, [facility] [place] [address] [address]- 8251 May, [facility] [place] [id number] [address]- 9023 May, [facility] [place] [id number]- 7448 May, Lumbago 724.2 and Depressive disorder, not elsewhere classified 311 [facility] [place] [address] [id number] [address]- 3773 Apr, UTI (urinary tract infection) 599.0 [facility] [place] [address] [id number] [address]- 1989 Apr, UTI (urinary tract infection) 599.0 and Depression 311 [facility] [place] [id number] [address]- 8982 Mar, [facility] [place] [id number] [address]- 1341 Mar, [facility] [place] [id number] [address]- 1613 Mar, [facility] [place] [address] [address]- 1855 Mar, Unspecified essential hypertension 401.9 ; Lumbago 724.2 and Anxiety 300.00 [facility] [place] [id number]- 9841 Mar, [facility] [place] [id number] [place] [address]- 0937 Feb, [facility] [place] [address] [address]- 3184 Feb, [facility] [place] [id number] [place] [address]- 3012 January, [facility] [place] [id number] [place] [address]- 0286 Dec, [facility] [place] [id number] [address]- 9592 Dec, [facility] [place] [id number] [address]- 4795 Oct, [facility] [place] [id number] [place] [address]- 1354 Oct, [facility] [place] [address]65[address] [address]- 5090 Oct, [facility] [place] [id number] [place] [address]- 5754 Oct, [facility] [place] [address] [id number] [address] Sep, [facility], [place], [facility] [address] [id number] [address] Sep, [facility], [place], [facility] [id number] [address] Sep, [facility], [place], [facility] [address] [id number] [address] Sep, [facility] [place] [facility] [address] [id number] [place] [address] Aug, [facility] [place] [facility] [address] [id number] [place] [address] Aug, [facility] [place] [facility] [address] [id number] [place] [address] Jul, [facility] [place] [facility] [address] [id number] [place] [address] Jul, [facility] [place] [facility] [address] [id number] [place] [address] Jun, [facility] [place] [facility] [address] [id number] [place] [address] Jun, [facility] [place] [facility] [address] [id number] [place] [address] Jun, [facility] [place] [facility] [address] [id number] [place] [address] Jun, [facility] [place] [facility] [address] [id number] [place] [address] Jun, [facility] [place] [facility] [address] [id number] [place] [address] Jun, [facility] [place] [facility] [address] [id number] [place] [address] May, [facility] [place] [facility] [address] [id number] [place] [address] May, [facility] [place] [facility] [address] [id number] [place] [address] Apr, [facility] [place] [facility] [address] [id number] [place] [address] Apr, [facility] [place] [facility] [address] [id number] [place] [address] Apr, [facility] [place] [facility] [address] [id number] [place] [address] Apr, [facility] [place] [facility] [address] [id number] [place] [address] Mar, [facility] [place] [facility] [address] [id number] [place] [address] Mar, [facility] [place] [facility] [address] [id number] [place] [address] Mar, [facility] [place] [facility] [address] [id number] [place] [address] Mar, [facility] [place] [facility] [address] [id number] [place] [address] Mar, [facility] [place] [facility] [address] [id number] [place] [address] Mar, [facility] [place] [facility] [address] [id number] [place] [address] Mar, [facility] [place] [facility] [address] [id number] [place] [address] Mar, [facility] [place] [facility] [address] [id number] [place] [address] Feb, [facility] [place] [facility] [address] [id number] [place] [address] Feb, [facility] [place] [facility] [address] [id number] [place] [address] January, [facility] [place] [facility] [address] [id number] [place] [address] January, [facility] [place] [facility] [address] [id number] [place] [address] January, [facility] [place] [facility] [address] [id number] [place] [address] January, [facility] [place] [facility] [address] [id number] [place] [address] Dec, [facility] [place] [facility] [address] [id number] [place] [address] 14 Dec, 2013 [facility] [address] [id number] [place] [address] 14 Dec, 2013 [facility] [address] [id number] [place] [address] 14 Dec, 2013 [facility] [address] [id number] [place] [address] 13 Nov, 2013 [facility] [address] [id number] [place] [address] 13 Nov, 2013 [facility] [address] [id number] [place] [address] Sep, [facility] [address] [id number] [place] [address] Sep, [facility] [address] [id number] [place] [address] 16 Sep, 2013 [facility] [address] [id number] [place] [address] 16 Sep, 2013 [facility] [address] [id number] [place] [address] Sep, [facility] [address] [id number] [place] [address] Sep, [facility] [address] [id number] [place] [address] Aug, [facility] [address] [id number] [place] [address] Aug, [facility] [place] [facility] [address] [id number] [place] [address] Aug, [facility] [address] [id number] [place] [address] Aug, [facility] [address] [id number] [place] [address] Jul, [facility] [place] [address] [id number] [address] Jul, [facility] [place] [id number] [place] [address] Jun, [facility] [place] [id number] [address] Jun, [facility] [place] [id number] [place] [address] Mar, [facility] [place] [id number], [place] [address] January, [facility] [place] [id number], [place] [address] Dec, [facility] [place] [id number], [place] [address] Dec, [facility] [place] [id number] [place] [address] Nov, [facility] [place] [id number], [place] [address] Nov, [facility] [place] [id number], [place] [address] Oct, [facility] [place] [id number] [address] January, [facility] [place] [id number], [place] [address] Dec, [facility] [place] [address] [id number], [place] [address] Sep, IMMUNIZATIONS No Known Immunizations SOCIAL HISTORY Never Assessed REASON FOR VISIT Medication refill request PLAN OF CARE VITAL SIGNS MEDICATIONS Medication Instructions Dosage Frequency Start Date End Date Duration Status Protonix 40 mg Orally twice a day 1 tablet 12h 30 Nov, 2016 30 day(s) Active Tramadol HCl 50MG Orally, each fill [...]
[2018-08-12] MEDS ORDERED: SUCCINYLCHOLINE INJ 100 MG/5 ML SYR ONE (07:12)
[2018-08-12] MEDS ORDERED: ROCURONIUM 10 MG/ML 5 ML SYRINGE IV ONE (07:12)
[2018-08-12] MEDS ORDERED: MIDAZOLAM 2 MG/2 ML (VERSED) VIAL ONE (07:12)
[2018-08-12] MEDS ORDERED: fentaNYL INJECTION 100 MCG/2 ML AMP ONE (07:12)
[2018-08-12] MEDS ORDERED: proPOfol 200 MG/20 ML (DIPRIVAN) VIAL IV ONE (07:12)
--- OUTSIDE RECORDS SUMMARY | 2018-08-12 07:12 | XMS REPORT ---
Author Author JOHANNY KINNEY Organization [facility] Address [address] [place] [address] Care Team Providers Care Epic Prelude Analyst Name Role Phone JOHANNY KINNEY Unavailable PROBLEMS Type Condition ICD9-CM Code [id number] Code Onset Dates Condition Status SNOMED Code Problem Cervical disc disease M50.90 Active 314404441 Problem Anxiety disorder, unspecified F41.9 Active 694404176 Problem Gastroesophageal reflux disease, esophagitis presence not specified K21.9 Active 382542073 Problem Pulmonary emphysema, unspecified emphysema type J43.9 Active 27659840 Problem Chronic maxillary sinusitis J32.0 Active 95469210 Problem Prediabetes R73.03 Active 575578284 Problem Mixed hyperlipidemia E78.2 Active 381307734 Problem Right maxillary sinusitis J32.0 Active 83073999 Problem Sinusitis chronic, frontal J32.1 Active 20067521 Problem Hypertension I10 Active 59899333 Problem Reactive depression F32.9 Active 92798805 Problem Lumbago with sciatica, right side M54.41 Active 703064776 Problem Sciatica M54.30 Active 22525059 Problem Other chronic pain G89.29 Active 54396002 Problem PVCs (premature ventricular contractions) I49.3 Active 31263476 Problem Neck pain M54.2 Active 71546162 ALLERGIES No Information ENCOUNTERS Encounter Location Date Diagnosis [facility] [address] [facility] [id number] [address] Apr, [facility] [address] [address] 67[address] Apr, [facility] [address] [address] Apr, Lumbago with sciatica, right side M54.41 ; Right maxillary sinusitis J32.0 ; Pulmonary emphysema, unspecified emphysema type J43.9 ; Hypertension I10 and Reactive depression F32.9 [facility] [address] [address]- [address] Apr, [facility] [address] [address]- 3008 Apr, Low back pain M54.5 [facility] [address] [address]- 5034 Apr, Low back pain M54.5 [facility] [address] 299[address]- 3753 Mar, Gastroesophageal reflux disease, esophagitis presence not specified K21.9 and Low back pain M54.5 [facility] [address] [address] Feb, Chronic maxillary sinusitis J32.0 [facility] [address] [address]- 4690 Feb, Low back pain M54.5 [facility] [address] 6[address]- 3776 Feb, Low back pain M54.5 [place] [address] [address]- 7344 Feb, Low back pain M54.5 [facility] [address] 46784- 9657 January, [facility] [address] 8[address]54- 3602 January, Sinusitis chronic, frontal J32.1 [facility] [address] 77409- 8588 January, Lumbago with sciatica, right side M54.41 ; Cervical disc disease M50.90 ; Hypertension I10 and Gastroesophageal reflux disease, esophagitis presence not specified K21.9 [facility] [address] 25995- 0776 Dec, Low back pain M54.5 [facility] [address] [place] [id number] [place] [address] 43419- 5700 Dec, Low back pain M54.5 [facility] [address] [id number] [place] [address] 69320- 3710 Nov, [facility] [address] 30[address]25 Nov, Right maxillary sinusitis J32.0 [facility] [address] [place] [id number] [place] [address] 86088- 8610 Nov, Low back pain M54.5 [facility] [address] [id number] [place] [address] 23789 -6604 Oct, Sinusitis chronic, frontal J32.1 [place] [address] 75383- 1050 Oct, Neck pain M54.2 [facility] [id number] [place] [address] 50749- 2610 Sep, Low back pain M54.5 [place] [address] [place] [id number] [place] [address] 26199- 2239 Sep, Neck pain M54.2 [place] [address] [place] [id number] [place] [address] 09728- 4578 Sep, Lumbago with sciatica, right side M54.41 ; Hypertension I10 ; Bronchitis J40 and Anxiety disorder, unspecified F41.9 [facility] [address] [id number] [place] [address] 00168- 9441 Aug, Neck pain M54.2 and Low back pain M54.5 [facility] [id number] [place] [address] 78147- 8692 Jul, Neck pain M54.2 and Low back pain M54.5 [facility] [address] [place] [address]- 3092 Jul, Neck pain M54.2 [facility] [address] 95027- 3224 Jun, Low back pain M54.5 and Neck pain M54.2 [facility] [address] [id number] [place] [address] 70925- 4962 May, Low back pain M54.5 and Neck pain M54.2 [facility] [address] 55252- 7419 21 May, 2017 [facility] [address] 90819 -3802 14 May, 2017 Bronchitis J40 [facility] [address] 31147- 5643 11 Apr, 2017 Hyperglycemia R73.9 [place] [address] 42667- 4956 08 Apr, 2017 Hyperglycemia R73.9 [place] [address] 89696- 7611 07 Apr, 2017 Gastroesophageal reflux disease, esophagitis presence not specified K21.9 ; Mixed hyperlipidemia E78.2 ; Neck pain M54.2 and PVCs ( premature ventricular contractions) I49.3 [place] [address] [place] [id number] [place] [address] 68763- 3703 Mar, Low back pain M54.5 [facility] [address] [place] [id number] [place] [address] 07805- 2648 Feb, Low back pain M54.5 and Gastroesophageal reflux disease, esophagitis presence not specified K21.9 [place] [address] 64982- 7920 January, Dyspnea on exertion R06.09 [facility] [address] [place] [id number] [place] [address] 12255- 7295 January, Hypertension I10 [place] [address] [place] [id number] [place] [address] 85772- 7811 January, [facility] [address] 48252- 9742 January, Low back pain M54.5 [facility] [address] [place] [id number] [place] [address] 91910- 9349 January, Low back pain M54.5 [facility] [address] 67487- 9643 January, Gastroesophageal reflux disease, esophagitis presence not specified K21.9 ; Lumbago with sciatica, right side M54.41 and Dyspnea on exertion R06.09 [place] [address] 36834- 4146 Nov, [place] [address] 87867- 5972 Nov, [facility] [address] 01899- 1159 Nov, Gastroesophageal reflux disease, esophagitis presence not specified K21.9 and Bronchitis J40 [place] [address] [place] [id number] [place] [address] 92239- 2153 15 Oct, 2016 Low back pain M54.5 and Anxiety disorder, unspecified F41.9 [place] [address] [place] [id number] [place] [address] 82618- 0564 10 Oct, 2016 Bronchitis J40 ; Hypertension I10 ; Sciatica M54.30 and Paresthesias R20.2 [facility] [id number] [place] [address] [id number] Sep, Dental examination Z01.20 [facility] [address] [id number] Sep, Dental examination Z01.20 and Dental caries K02.9 [facility] [address] [place] [id number] [place] [address] 08714- 7754 Aug, [facility] [address] [facility] [id number] [address]- 0485 Jul, Low back pain M54.5 and Anxiety disorder, unspecified F41.9 [facility] [address] [place] [place] [id number] [place] [address], [place] [address]- 1022 Jul, [facility] [id number] [place] [address], [place] [address]- 2402 Jun, Lumbago with sciatica, right side M54.41 ; Cervical disc disease M50.90 and Gastroesophageal reflux disease, esophagitis presence not specified K21.9 [facility] [id number] [place] [address], [place] [address]- 4135 Jun, [facility] [address] [place] [address] [id number] [place] [address], [place] [address]- 7088 Jun, [facility] [id number] [place] [address], [place] [address]- 9235 Jun, [facility] [id number] [place] [address], [place] [address]- 2619 Jun, [facility] [id number] [place] [address], [place] [address]- 9603 Jun, [facility] [address] [place] [id number] [address]- 6151 May, [facility] [id number] [place] [address], [place] [address]- 6500 May, [facility] [address] [place] [address] [id number] [address]- 9623 May, [facility] [address] [place] [address] [id number] [place] [address], [place] [address]- 9729 Apr, [facility] [address] [facility] [id number] [place] [address]- 0234 Apr, [facility] [address] [address]- 4721 Apr, [facility] [address] [place] [id number] [place] [address] 44793- 8061 Apr, Cervical disc disease M50.90 [facility] [address] [place] [id number] [place] [address] 44733- 3197 Apr, [facility] [address] [place] [id number] [place] [address] 58464- 0659 Apr, Neck pain M54.2 ; Hypertension I10 and Reactive depression F32.9 [facility] [address] [place] [id number] [place] [address] 21344- 4237 Mar, [facility] [address] 02720- 4834 Mar, [facility] [address] [place] [id number] [place] [address] 28084- 5872 Mar, [facility] [address] 39866- 3535 Feb, Sciatica M54.30 [facility] [address] [place] [id number] [place] [address] 01112- 2459 Feb, Paresthesias R20.2 ; Sciatica M54.30 and Reactive depression F32.9 [facility] [address] [place] [id number] [place] [address] 81698- 1855 Feb, [facility] [address] [place] [id number] [place] [address] 30992- 6482 January, [facility] [address] [place] [id number] [place] [address] 28489- 1295 January, Hyperlipemia, mixed E78.2 ; Other abnormalities of heart beat R00.8 and Anxiety F41.9 [facility] [address] [id number] [place] [address] 98135- 7057 January, [facility] [address] [id number] [place] [address] 45461- 4006 January, Low back pain M54.5 [facility] [address] [id number] [place] [address] 32550- 2392 January, Anxiety disorder, unspecified F41.9 [facility] [address] [id number] [place] [address] 02481- 5242 Dec, Ventricular bigeminy I49.9 [facility] [address] 81568- 6137 Dec, [facility] [address] 66921- 6548 Dec, Low back pain M54.5 [place] [address] 03740- 8032 Dec, Sciatica M54.30 [place] [address] 84172- 1713 Nov, Major depressive disorder, single episode, unspecified F32.9 [facility] [address] [place] [id number] [place] [address] 50325- 4352 Nov, Sciatica M54.30 [facility] [address] 65458- 8317 Nov, [facility] [address] [place] [id number] [place] [address] 06915- 9716 Nov, [place] [address] [place] [id number] [place] [address] 99920- 5205 Nov, Anxiety disorder, unspecified F41.9 [facility] [address] [place] [place] [id number] [place] [address] 64414- 9403 Nov, [facility] [address] 21384- 3794 Nov, Depressed F32.9 and Anxiety F41.9 [facility] [address] [place] [id number] [place] [address] 21686- 5742 Nov, Lumbago 724.2 ; Sciatica M54.30 and PVCs (premature ventricular contractions) I49.3 [facility] [address] [place] [id number] [place] [address] 94901- 2108 Oct, [facility] [address] 61129- 3783 Oct, [facility] [address] 23770- 7897 Oct, Sciatica M54.30 and Hypertension I10 [facility] [address] 84748- 8366 Oct, [facility] [address] 65465- 7151 Oct, [facility] [address] 28698- 8205 Oct, [facility] [address] 93330- 6309 Sep, [facility] [address] [place] [id number] [place] [address] 56838- 6905 Sep, [facility] [address] 04299- 6423 Sep, [facility] [address] [place] [id number] [place] [address] 93909- 4045 Sep, Ventricular arrhythmia I49.9 [facility] [address] 47118- 9564 Sep, Ventricular bigeminy I49.9 and Hypertension I10 [facility] [address] [place] [id number] [place] [address] 87598- 5021 Sep, Lumbago M54.5 and Ventricular bigeminy I49.9 [facility] [id number] [place] [address] 36888- 3203 Sep, [facility] [address] 48360- 1326 Aug, [facility] [address] [facility] [id number] [place] [address]- 8700 Aug, [facility] [address] [facility] [id number] [place] [address]- 3008 Aug, [facility] [id number] [address]- 7115 Aug, [facility] [address] [facility] [id number] [place] [address]- 3029 Aug, [facility] [id number] [address]- 2550 Jul, [facility] [id number] [address]- 9577 Jun, [facility] [address] [address]- 9607 May, [facility] [id number] [address]- 8872 May, [facility] [id number] 5781 May, Lumbago 724.2 and Depressive disorder, not elsewhere classified 311 [facility] [id number] [address]- 1598 Apr, UTI (urinary tract infection) 599.0 [facility] [id number] [address]- 2533 Apr, UTI (urinary tract infection) 599.0 and Depression 311 [facility] [id number] [address]- 7159 Mar, [facility] [id number] [address]- 3921 Mar, [facility] [id number] [address]- 0015 Mar, [facility] [address] [address]- 3649 Mar, Unspecified essential hypertension 401.9 ; Lumbago 724.2 and Anxiety 300.00 [facility] [address] 6425 Mar, [facility] [address] [place] [address]- 9193 Feb, [facility] [address] [address]- 2534 Feb, [facility] [address] [place] [address]- 7132 January, [facility] [address] [place] [address]- 3680 Dec, [facility] [address] [address]- 9909 Dec, [facility] [address] [address]- 2837 Oct, [facility] [address] [place] [address]- 3427 Oct, [facility] [address] [address]- 7597 Oct, [facility] [address] [place] [address]- 8306 Oct, [facility] [id number] [address]- 7593 Sep, [facility] [id number] [address]- 9552 Sep, [facility] [address] [address]- 0018 Sep, [facility] [id number] [address]- 0095 Sep, [facility] [place] [facility] [address] [id number] [place] [address]- 7770 Aug, [facility] [place] [facility] [address] [id number] [place] [address]- 0141 Aug, [facility] [place] [facility] [address] [id number] [place] [address]- 4531 Jul, [facility] [place] [facility] [address] [id number] [place] [address]- 2898 Jul, [facility] [place] [facility] [address] [id number] [place] [address]- 9495 Jun, [facility] [place] [facility] [address] [id number] [place] [address]- 1928 Jun, [facility] [place] [facility] [address] [id number] [place] [address]- 0184 Jun, [facility] [place] [facility] [address] [id number] [place] [address]- 2140 Jun, [facility] [place] [facility] [address] [id number] [place] [address]- 8471 Jun, [facility] [place] [facility] [address] [id number] [place] [address]- 3274 Jun, [facility] [place] [facility] [address] [id number] [place] [address]- 2537 May, [facility] [place] [facility] [address] [id number] [place] [address]- 0863 May, [facility] [place] [facility] [address] [id number] [place] [address]- 0107 Apr, [facility] [place] [facility] [address] [id number] [place] [address]- 9703 Apr, [facility] [place] [facility] [address] [id number] [place] 8411 Apr, [facility] [place] [facility] [address] [id number] [place] [address]- 3817 Apr, [facility] [place] [facility] [address] [id number] [place] [address]- 0310 Mar, [facility] [place] [facility] [address] [id number] [place] 4514 Mar, [facility] [place] [facility] [address] [id number] [place] [address]- 4751 Mar, [facility] [place] [facility] [address] [id number] [place] [address]- 1791 Mar, [facility] [place] [facility] [address] [id number] [place] [address]- 8661 Mar, [facility] [place] [facility] [address] [id number] [place] [address]- 8425 Mar, [facility] [place] [facility] [address] [id number] [place] [address]- 4417 Mar, [facility] [place] [facility] [address] [id number] [place] [address]- 4824 Mar, [facility] [place] [facility] [address] [id number] [place] [address]- 9997 Feb, [facility] [place] [facility] [address] [id number] [place] [address]- 9339 Feb, [facility] [place] [facility] [address] [id number] [place] [address]- 2346 January, [facility] [place] [facility] [address] [id number] [place] [address]- 8310 January, [facility] [place] [facility] [address] [id number] [place] 6552 January, [facility] [place] [facility] [address] [id number] [place] 2012 January, [facility] [place] [facility] [address] [id number] [place] [address]- 7400 Dec, [facility] [place] [facility] [address] [id number] [place] [address]- 4746 14 Dec, 2013 [facility] [address] [id number] [place] [address]- 6684 14 Dec, 2013 [facility] [address] [id number] [place] [address]- 8458 14 Dec, 2013 [facility] [address] [id number] [place] [address]- 8146 13 Nov, 2013 [facility] [address] [id number] [place] [address]- 6715 13 Nov, 2013 [facility] [address] [id number] [place] [address]- 9521 Sep, [facility] [address] [id number] [place] [address]- 8855 Sep, [facility] [address] [id number] [place] [address]- 4913 16 Sep, 2013 [facility] [address] [id number] [place] [address]- 0467 16 Sep, 2013 [facility] [address] [id number] [place] [address]- 6616 Sep, [facility] [address] [id number] [place] [address] Sep, [facility] [address] [id number] [place] [address] Aug, [facility] [address] [id number] [place] [address] Aug, [facility] [place] [facility] [address] [id number] [place] [address] Aug, [facility] [address] [id number] [place] [address] Aug, [facility] [address] [id number] [place] [address] Jul, [facility] [id number] [address] Jul, [facility] [address] [address] Jun, [facility] [id number] [address] Jun, [facility] [id number] [address] Mar, [facility] [id number] [address] January, [facility] [id number] [place] [address] Dec, [facility] [id number] [address] Dec, [facility] [id number] [address] Nov, [facility] [id number] [address] Nov, [facility] [id number] [address] Oct, [facility] [id number] [address] January, [facility] [id number] [address] Dec, [facility] [id number] [address] Sep, IMMUNIZATIONS No Known Immunizations SOCIAL HISTORY [...]
--- OUTSIDE RECORDS SUMMARY | 2018-08-12 07:12 | XMS REPORT ---
Author Author RICHARD HAWTHORNE [facility] IN [facility] Address [address] [place] [address] Care Team Providers Care Marketing Secretary Name Role Phone RICHARD HAWTHORNE Unavailable PROBLEMS Type Condition ICD9-CM Code QKZ52-SC Code Onset Dates Condition Status SNOMED Code Problem Cervical disc disease M50.90 Active 712893905 Problem Anxiety disorder, unspecified F41.9 Active 906947689 Problem Gastroesophageal reflux disease, esophagitis presence not specified K21.9 Active 856202981 Problem Pulmonary emphysema, unspecified emphysema type J43.9 Active 96733279 Problem Chronic maxillary sinusitis J32.0 Active 80033797 Problem Prediabetes R73.03 Active 999821265 Problem Mixed hyperlipidemia E78.2 Active 067263569 Problem Right maxillary sinusitis J32.0 Active 20796391 Problem Sinusitis chronic, frontal J32.1 Active 89891142 Problem Hypertension I10 Active 92378972 Problem Reactive depression F32.9 Active 38464767 Problem Lumbago with sciatica, right side M54.41 Active 943700965 Problem Sciatica M54.30 Active 52729780 Problem Other chronic pain G89.29 Active 21832487 Problem PVCs (premature ventricular contractions) I49.3 Active 65292779 Problem Neck pain M54.2 Active 85194866 ALLERGIES No Known Allergies ENCOUNTERS Encounter Location Date Diagnosis [facility] [address] [facility] [id number] [address] Apr, [facility] [address] [address] Apr, [facility] [address] [id number] [address] Apr, Lumbago with sciatica, right side M54.41 ; Right maxillary sinusitis J32.0 ; Pulmonary emphysema, unspecified emphysema type J43.9 ; Hypertension I10 and Reactive depression F32.9 [facility] [id number] [place] [address] 88325- 7088 Apr, [facility] [id number] [place] [address] 33647- 6750 Apr, Low back pain M54.5 [facility] [address] 12726- 0894 Apr, Low back pain M54.5 [facility] [address] 36742- 9150 Mar, Gastroesophageal reflux disease, esophagitis presence not specified K21.9 and Low back pain M54.5 [facility] IN [facility] [id number] [place] [address] 90235 -1732 Feb, Chronic maxillary sinusitis J32.0 [facility] [address] 89456- 9375 Feb, Low back pain M54.5 [facility] [address] 08175- 4816 Feb, Low back pain M54.5 [facility] [id number] [place] [address] 66123- 0552 Feb, Low back pain M54.5 [facility] [id number] [place] [address] 05005- 1567 January, [facility] [id number] [place] [address] 99064- 5375 January, Sinusitis chronic, frontal J32.1 [facility] [address] 58954- 8101 January, Lumbago with sciatica, right side M54.41 ; Cervical disc disease M50.90 ; Hypertension I10 and Gastroesophageal reflux disease, esophagitis presence not specified K21.9 [facility] [address] 67479- 4878 Dec, Low back pain M54.5 [facility] [id number] [place] [address] 91433- 5658 Dec, Low back pain M54.5 [facility] [id number] [place] [address] 16347- 5871 Nov, [facility] [address] 40391 -6876 Nov, Right maxillary sinusitis J32.0 [facility] [address] 13353- 0482 Nov, Low back pain M54.5 [facility] [id number] [place] [address] 71608 -6103 Oct, Sinusitis chronic, frontal J32.1 [place] [address] 67983- 8062 Oct, Neck pain M54.2 [facility] [address] 25749- 8125 Sep, Low back pain M54.5 [facility] [address] 39590- 2113 Sep, Neck pain M54.2 [place] [id number] [place] [address] 45859- 2731 Sep, Lumbago with sciatica, right side M54.41 ; Hypertension I10 ; Bronchitis J40 and Anxiety disorder, unspecified F41.9 [facility] [id number] [place] [address] 28002- 5049 Aug, Neck pain M54.2 and Low back pain M54.5 [facility] [id number] [place] [address] 74370- 5971 Jul, Neck pain M54.2 and Low back pain M54.5 [facility] [address] 72415- 7144 Jul, Neck pain M54.2 [place] [address] 88313- 3850 Jun, Low back pain M54.5 and Neck pain M54.2 [facility] [address] 92840- 4151 22 May, 2017 Low back pain M54.5 [address] Neck pain M54.2 [facility] [address] 83741- 2963 21 May, 2017 [facility] [address] 03420 -3876 14 May, [address] [facility] [address] 18782- 1241 11 Apr, 2017 Hyperglycemia R73.9 [place] [address] 16048- 1495 08 Apr, 2017 Hyperglycemia R73.9 [place] [address] 80654- 7610 07 Apr, 2017 Gastroesophageal reflux disease, esophagitis presence not specified K21.9 ; Mixed hyperlipidemia E78.2 ; Neck pain M54.2 and PVCs ( premature ventricular contractions) I49.3 [place] [id number] [place] [address] 73616- 5220 Mar, Low back pain M54.5 [facility] [address] 29987- 9943 Feb, Low back pain M54.5 and Gastroesophageal reflux disease, esophagitis presence not specified K21.9 [place] [address] 29324- 9015 January, Dyspnea on exertion R06.09 [place] [id number] [place] [address] 89637- 1331 January, Hypertension I10 [place] [id number] [place] [address] 32109- 8365 January, [facility] [address] 44670- 3665 January, Low back pain M54.5 [facility] [id number] [place] [address] 20526- 6255 January, Low back pain M54.5 [facility] [address] 44991- 7021 January, Gastroesophageal reflux disease, esophagitis presence not specified K21.9 ; Lumbago with sciatica, right side M54.41 and Dyspnea on exertion R06.09 [place] [address] 67427- 1454 Nov, [place] [address] 80354- 2446 Nov, [place] [address] 30618- 7570 Nov, Gastroesophageal reflux disease, esophagitis presence not specified K21.9 and Bronchitis J40 [place] [id number] [place] [address] 14330- 1477 15 Oct, 2016 Low back pain M54.5 and Anxiety disorder, unspecified F41.9 [place] [id number] [place] [address] 53284- 5085 10 Oct, 2016 Bronchitis J40 ; Hypertension I10 ; Sciatica M54.30 and Paresthesias R20.2 [facility] [id number] [place] [address] [id number] Sep, Dental examination Z01.20 [facility] [id number] [place] [address] [id number] Sep, Dental examination Z01.20 and Dental caries K02.9 [place] [id number] [place] [address] 46237- 4648 Aug, [facility] [id number] [place] [address] 79297- 2915 Jul, Low back pain M54.5 and Anxiety disorder, unspecified F41.9 [facility] [id number] [place] [address] 89672- 2852 Jul, [facility] [id number] [place] [address] 19179- 1869 Jun, Lumbago with sciatica, right side M54.41 ; Cervical disc disease M50.90 and Gastroesophageal reflux disease, esophagitis presence not specified K21.9 [facility] [id number] [place] [address] 12055- 7922 Jun, [facility] [id number] [place] [address] 60386- 3694 Jun, [facility] [id number] [place] [address] 19064- 1060 Jun, [facility] [id number] [place] [address] 37996- 1332 Jun, [facility] [id number] [place] [address], [place] [address]- 8598 Jun, [facility] [id number] [place] [address] 72221- 5560 May, [facility] [id number] [place] [address] 98636- 2105 May, [facility] [id number] [place] [address] 361962- [address]994 May, [facility] [id number] [place] [address], [place]- [address] Apr, [facility] [id number] [place] [address] [id number]- 7497 Apr, [facility] [id number] [place] [address] 28080- 5276 Apr, [facility] [id number] [place] [address] 59658- 9406 Apr, Cervical disc disease M50.90 [facility] [id number] [place] [address] 52185- 1943 Apr, [facility] [id number] [place] [address] 44147- 9406 Apr, Neck pain M54.2 ; Hypertension I10 and Reactive depression F32.9 [facility] [id number] [place] [address] 07343- 1431 Mar, [facility] [address] 07646- 3683 Mar, [facility] [id number] [place] [address] 54296- 1066 Mar, [facility] [address] 50434- 0694 Feb, Sciatica M54.30 [facility] [id number] [place] [address] 40986- 6733 Feb, Paresthesias R20.2 ; Sciatica M54.30 and Reactive depression F32.9 [facility] [id number] [place] [address] 77737- 7230 Feb, [facility] [id number] [place] [address] 51049- 4422 January, [facility] [id number] [place] [address] 18752- 1470 January, Hyperlipemia, mixed E78.2 ; Other abnormalities of heart beat R00.[address] [facility] [id number] [place] [address] 29965- 5537 January, [facility] [id number] [place] [address] 23631- 2519 January, Low back pain M54.5 [facility] [id number] [place] [address] 77097- 3806 January, Anxiety disorder, unspecified F41.9 [facility] [id number] [place] [address] 73889- 8605 Dec, Ventricular bigeminy I49.9 [facility] [id number] [place] [address] 14513- 6295 Dec, [facility] [id number] [place] [address] 88218- 5968 Dec, Low back pain M54.5 [facility] [id number] [place] [address] 62330- 1340 Dec, Sciatica M54.30 [facility] [id number] [place] [address] 47586- 3342 Nov, Major depressive disorder, single episode, unspecified F32.9 [facility] [id number] [place] [address] 44943- 0195 Nov, Sciatica M54.30 [facility] [id number] [place] [address] 36268- 7111 Nov, [facility] [id number] [place] [address] 60127- 0612 Nov, [facility] [id number] [place] [address] 78386- 4810 Nov, Anxiety disorder, unspecified F41.9 [facility] [id number] [place] [address] 33472- 5549 Nov, [facility] [id number] [place] [address] 41502- 0343 Nov, Depressed F32.[address] [facility] [id number] [place] [address] 92941- 4650 Nov, Lumbago 724.2 ; Sciatica M54.30 and PVCs (premature ventricular contractions) I49.3 [facility] [id number] [place] [address] 52184- 7589 Oct, [facility] [id number] [place] [address] 09614- 8922 Oct, [facility] [id number] [place] [address] 64052- 1561 Oct, Sciatica M54.[address] [facility] [id number] [place] [address] 59888- 7345 Oct, [facility] [address] 59960- 2375 Oct, [facility] [address] 74525- 3319 Oct, [facility] [address] 07850- 8673 Sep, [facility] [id number] [place] [address] 71469- 6795 Sep, [facility] [address] 74424- 4899 Sep, [facility] [id number] [place] [address] 70630- 1668 Sep, Ventricular arrhythmia I49.9 [facility] [address] 10998- 8623 Sep, Ventricular bigeminy I49.[address] [facility] [id number] [place] [address] 17530- 0778 Sep, Lumbago M54.5 and Ventricular bigeminy I49.9 [facility] [id number] [place] [address] 01775- 0146 Sep, [facility] [id number] [place] [address] 48466- 0505 Aug, [facility] [address] [facility] [id number] [address]- 5788 Aug, [facility] [address] [facility] [id number] [place] [address]- 3974 Aug, [facility] [id number] [address]- 4984 Aug, [facility] [id number] [address]- 1148 Aug, [facility] [id number] [address]- 3283 Jul, [facility] [address]- 78[address] Jun, [facility] [address]- [address] May, [facility] [address] [address]- 1243 May, [facility] [id number]- 4106 May, Lumbago 724.2 and Depressive disorder, not elsewhere classified 311 [facility] [id number]- 4058 Apr, UTI (urinary tract infection) 599.0 [facility] [id number] 3769 Apr, UTI (urinary tract infection) 599.[address] [facility] [id number] [address]- 1848 Mar, [facility] [id number]- 6120 Mar, [facility] [id number] [address]- 8392 Mar, [facility] [address] [facility] [id number] [place] [address]- 9991 Mar, Unspecified essential hypertension 401.9 ; Lumbago 724.[address] [facility] [address] [facility] [id number] [place] [address]- 8875 Mar, [facility] [address] [place] [address]- 1529 Feb, [facility] [address] [facility] [id number] [place] [address]- 2013 Feb, [facility] [address] [place] [address], [place] [address]- 2822 January, [facility] [address] [address]- 5348 Dec, [facility] [address] [place] [address]- 2677 Dec, [facility] [address] [place] [address]- 5498 Oct, [facility] [address] [address]- 3257 Oct, [facility] [id number] [address]- 4664 Oct, [facility] [address] [address]- 5836 Oct, [facility] [id number] [address]- 385[address] Sep, [facility] [address]- 5707 Sep, [facility] [id number] [address]- 7[address] Sep, [facility] [id number]- 8400 Sep, [facility] [place] [facility] [address] [id number] [place] [address]- 4096 Aug, [facility] [place] [facility] [address] [id number] [place] [address]- 9409 Aug, [facility] [place] [facility] [address] [id number] [place] [address]- 5481 Jul, [facility] [place] [facility] [address] [id number] [place] [address]- 5836 Jul, [facility] [place] [facility] [address] [id number] [place] [address]- 0232 Jun, [facility] [place] [facility] [address] [id number] [place] [address]- 5365 Jun, [facility] [place] [facility] [address] [id number] [place] [address]- 2140 Jun, [facility] [place] [facility] [address] [id number] [place] [address]- 7924 Jun, [facility] [place] [facility] [address] [id number] [place] [address]- 3293 Jun, [facility] [place] [facility] [address] [id number] [place] [address]- 6421 Jun, [facility] [place] [facility] [address] [id number] [place] [address]- 9210 May, [facility] [place] [facility] [address] [id number] [place] [address]- 7571 May, [facility] [place] [facility] [address] [id number] [place] [address]- 1280 Apr, [facility] [place] [facility] [address] [id number] [place] [address]- 4268 Apr, [facility] [place] [facility] [address] [id number] [place] [address]- 6967 Apr, [facility] [place] [facility] [address] [id number] [place] [address]- 5555 Apr, [facility] [place] [facility] [address] [id number] [place] [address]- 5591 Mar, [facility] [place] [facility] [address] [id number] [place] [address]- 5102 Mar, [facility] [place] [facility] [address] [id number] [place] [address]- 3103 Mar, [facility] [place] [facility] [address] [id number] [place] [address]- 5423 Mar, [facility] [place] [facility] [address] [id number] [place] [address]- 6190 Mar, [facility] [place] [facility] [address] [id number] [place] [address]- 5040 Mar, [facility] [place] [facility] [address] [id number] [place] [address]- 4179 Mar, [facility] [place] [facility] [address] [id number] [place] [address]- 5297 Mar, [facility] [place] [facility] [address] [id number] [place] [address]- 5400 Feb, [facility] [place] [facility] [address] [id number] [place] [address]- 1583 Feb, [facility] [place] [facility] [address] [id number] [place] [address]- 2606 January, [facility] [place] [facility] [address] [id number] [place] [address]- 4140 January, [facility] [place] [facility] [address] [id number] [place] [address]- 5839 January, [facility] [place] [facility] [address] [id number] [place] [address]- 6282 January, [facility] [place] [facility] [address] [id number] [place] [address]- 0237 Dec, [facility] [place] [facility] [address] [id number] [place] [address]- 4171 14 Dec, 2013 [facility] [place] [facility] [address] [id number] [place] [address]- 9640 14 Dec, 2013 [facility] [place] [facility] [address] [id number] [place] [address]- 5218 14 Dec, 2013 [facility] [place] [facility] [address] [id number] [place] [address]- 3200 13 Nov, 2013 [facility] [place] [facility] [address] [id number] [place] [address]- 7921 13 Nov, 2013 [facility] [place] [facility] [address] [id number] [place] [address] Sep, [facility] [place] [facility] [address] [id number] [place] [address] Sep, [facility] [place] [facility] [address] [id number] [place] [address] 16 Sep, 2013 [facility] [place] [facility] [address] [id number] [place] [address] 16 Sep, 2013 [facility] [place] [facility] [address] [id number] [place] [address] Sep, [facility] [place] [facility] [address] [id number] [place] [address] Sep, [facility] [place] [facility] [address] [id number] [place] [address] Aug, [facility] [place] [facility] [address] [id number] [place] [address] Aug, [facility] [place] [facility] [address] [id number] [place] [address] Aug, [facility] [place] [facility] [address] [id number] [place] [address] Aug, [facility] [place] [facility] [address] [id number] [place] [address] Jul, [facility] [address] [id number] [address] Jul, [facility] [id number] [address] Jun, [facility] [address] [id number] [address] Jun, [facility] [address] [id number] [address] Mar, [facility] [id number] [address] January, [facility] [id number] [place] [address] Dec, [facility] [id number] [address] Dec, [facility] [id number] [address] Nov, [facility] [id number] [address] Nov, [facility] [id number] [address] Oct, [facility] [id number] [address] January, [facility] [address] [id number] [address] Dec, [facility] [address] [id number] [address] Sep, IMMUNIZATIONS No Known Immunizations SOCIAL HISTORY Never Assessed REASON FOR VISIT sinus pressure moving to ear and teeth started 1 week ago Pratik PLAN OF CARE Activity Details Follow Up w/ Dr. Cottrell Reason:chronic sinusitis VITAL SIGNS Height 62 in 2018-02-25 Weight 169.0 lbs 2018-02-25 Temperature 99.4 degrees Fahrenheit 2018-02-25 Heart Rate 90 bpm 2018-02-25 Respiratory Rate 20 2018-02-25 BMI 30.91 kg/m2 2018-02-25 Blood pressure systolic 120 mmHg 2018-02-25 Blood pressure diastolic 80 mmHg 2018-02-25 MEDICATIONS Medication Instructions Dosage Frequency Start Date End Date Duration Status Protonix 40 mg Orally twice a day 1 tablet 12h 30 Nov, 2016 30 day(s) Active Cyclobenzaprine HCl 10MG Orally Three times a day 1 tablet 8h 90 Active ProAir HFA 108 (90 Base) MCG/ACT Inhalation every 4 hrs 2 puffs as needed 4h 14 May, 2017 5 days Active Flonase 50 MCG/ACT Nasally twice a day 1 spray in each nostril 12h Oct, 30 days Active Metoprolol Succinate ER 50MG TAKE ONE TABLET BY MOUTH ONCE DAILY 90 Active Lipitor 10 MG Orally Once a day 1 tablet 24h Active C-PAP Machine Active Augmentin 875-125 MG Orally every 12 hrs 1 tablet 12h Feb,Feb 10 day(s) Active Tramadol HCl 50MG Orally, each fill must last 30 days every 6 hours 1 tablet 6h 28 days Active Gabapentin 600MG Orally 2 times a day 1 tablet 12h Active Diazepam 5MG Orally, each fill must last 30 days Twice a day 1 tablet as needed 12h 28 days Active Zoloft 50MG Orally Once a day 1 tablet 24h Active RESULTS No Results PROCEDURES No Known [...]
[2018-08-12] MEDS ORDERED: ONDANSETRON 4 MG/2 ML (SDV) Z0FRAN ONE (07:13)
[2018-08-12] MEDS ORDERED: DEXAMETHASONE 10 MG/ML (DECADRON) 1 ML VIAL ONE (07:13)
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
--- OUTSIDE RECORDS SUMMARY | 2018-08-12 07:13 | XMS REPORT ---
Author Author JOHANNY KINNEY Organization [facility] Address [address] [place] [address] Care Team Providers Care Document Clerk Name Role Phone JOHANNY KINNEY Unavailable PROBLEMS Type Condition ICD9-CM Code KEP58-OX Code Onset Dates Condition Status SNOMED Code Problem Neck pain M54.2 Active 92245161 Problem Gastroesophageal reflux disease, esophagitis presence not specified K21.9 Active 371814879 Problem Cervical disc disease M50.90 Active 084863420 Problem Chronic maxillary sinusitis J32.0 Active 64298703 Problem Right maxillary sinusitis J32.0 Active 50152974 Problem Mixed hyperlipidemia E78.2 Active 178094440 Problem Anxiety disorder, unspecified F41.9 Active 418986576 Problem Sinusitis chronic, frontal J32.1 Active 49707652 Problem Prediabetes R73.03 Active 710968962 Problem PVCs (premature ventricular contractions) I49.3 Active 62414177 Problem Reactive depression F32.9 Active 91428188 Problem Hypertension I10 Active 32188417 Problem Lumbago with sciatica, right side M54.41 Active 077657789 Problem Sciatica M54.30 Active 13634006 Problem Other chronic pain G89.29 Active 82228076 ALLERGIES No Information ENCOUNTERS Encounter Location Date Diagnosis [facility] [address] [address] Apr, [facility] [address] [address] Apr, [facility] [id number] [place] [address] 80585- 5380 Apr, Low back pain M54.5 [facility] [id number] [address] 8088 Apr, Low back pain M54.5 [facility] [id number] [place] [address] 03196- 7120 Mar, Gastroesophageal reflux disease, esophagitis presence not specified K21.9 and Low back pain M54.5 [facility] [id number] [place] [address] 73719 -0368 Feb, Chronic maxillary sinusitis J32.0 [facility] [address] [address]- [address] Feb, Low back pain M54.5 [facility] [address] [address]- 3822 Feb, Low back pain M54.5 [facility] [address] 78846- 5356 Feb, Low back pain M54.5 [place] [address] 00[address]- 6807 January, [facility] [address] [address]21- [address]35 January, Sinusitis chronic, frontal J32.1 [facility] [address] [address]26- 5800 January, Lumbago with sciatica, right side M54.41 ; Cervical disc disease M50.90 ; Hypertension I10 and Gastroesophageal reflux disease, esophagitis presence not specified K21.9 [facility] [id number] [place] [address] 58982- 2681 Dec, Low back pain M54.5 [facility] [id number] [place] [address] 70185- 6033 Dec, Low back pain M54.5 [facility] [id number] [place] [address] 95149- 3005 Nov, [facility] [id number] [place] [address] 72008 -6027 22 Mar, 2018 Right maxillary sinusitis J32.0 [facility] [id number] [place] [address] 53810- 1191 Nov, Low back pain M54.5 [facility] [id number] [place] [address] 74001 -2551 Oct, Sinusitis chronic, frontal J32.1 [facility] [address] 73617- 2520 Oct, Neck pain M54.2 [facility] [address] 39424- 9931 Sep, Low back pain M54.5 [facility] [address] 07608- 8755 Sep, Neck pain M54.2 [facility] [address] 40021- 9466 Sep, Lumbago with sciatica, right side M54.41 ; Hypertension I10 ; Bronchitis J40 and Anxiety disorder, unspecified F41.9 [facility] [address] 57363- 4785 Aug, Neck pain M54.2 and Low back pain M54.5 [facility] [address] 41083- 2564 16 Jul, 2017 Neck pain M54.2 and Low back pain M54.5 [facility] [id number] [place] [address] 28963- 6557 Jul, Neck pain M54.2 [facility] [address] 41440- 2312 Jun, Low back pain M54.5 and Neck pain M54.2 [facility] [id number] [place] [address] 34193- 3166 May, Low back pain M54.5 and Neck pain M54.2 [facility] [id number] [place] [address]- 0745 21 May, 2017 [facility] [id number] [place] [address] 40923 -0447 14 May, 2017 Bronchitis J40 [facility] [id number] [place] [address] 23421- 6663 11 Apr, 2017 Hyperglycemia R73.9 [facility] [address] 30738- 7665 08 Apr, 2017 Hyperglycemia R73.9 [facility] [id number] [place] [address] 51016- 1898 07 Apr, 2017 Gastroesophageal reflux disease, esophagitis presence not specified K21.9 ; Mixed hyperlipidemia E78.2 ; Neck pain M54.2 and PVCs ( premature ventricular contractions) I49.3 [facility] [id number] [place] [address] 43150- 9436 Mar, Low back pain M54.5 [facility] [id number] [place] [address] 45532- 2808 Feb, Low back pain M54.5 and Gastroesophageal reflux disease, esophagitis presence not specified K21.9 [facility] [id number] [place] [address] 18677- 1241 January, Dyspnea on exertion R06.09 [facility] [id number] [place] [address] 86272- 1550 January, Hypertension I10 [facility] [id number] [place] [address] 14789- 1141 January, [facility] [address] 30655- 0627 January, Low back pain M54.5 [facility] [id number] [place] [address] 06497- 3146 January, Low back pain M54.5 [facility] [address] 55032- 5160 January, Gastroesophageal reflux disease, esophagitis presence not specified K21.9 ; Lumbago with sciatica, right side M54.41 and Dyspnea on exertion R06.09 [place] [id number] [place] [address] 06173- 9389 Nov, [place] [id number] [place] [address] 60957- 9398 Nov, [place] [address] 36844- 1524 Nov, Gastroesophageal reflux disease, esophagitis presence not specified K21.9 and Bronchitis J40 [place] [address] 58057- 5834 15 Oct, 2016 Low back pain M54.5 and Anxiety disorder, unspecified F41.9 [place] [address] 31946- 3551 10 Oct, 2016 Bronchitis J40 ; Hypertension I10 ; Sciatica M54.30 and Paresthesias R20.2 [facility] [address] [id number] Sep, Dental examination Z01.20 [facility] [address] [id number] Sep, Dental examination Z01.20 and Dental caries K02.9 [place] [id number] [place] [address] 26141- 1784 Aug, [place] [address] 64986- 2811 17 Jul, 2016 Low back pain M54.5 and Anxiety disorder, unspecified F41.9 [place] [address] 16507- 2236 11 Jul, 2016 [place] [id number] [place] [address] 48247- 7549 31 Jun, 2016 Lumbago with sciatica, right side M54.41 ; Cervical disc disease M50.90 and Gastroesophageal reflux disease, esophagitis presence not specified K21.9 [facility] [id number] [place] [address] 67512- 5315 Jun, [facility] [id number] [place] [address] 89809- 5266 Jun, [facility] [id number] [place] [address] 60291- 9616 Jun, [facility] [id number] [place] [address] 20056- 2063 Jun, [facility] [id number] [place] [address] 85074- 0593 Jun, [facility] [id number] [place] [address] 62544- 3849 May, [facility] [id number] [place] [address] 52998- 4178 May, [facility] [id number] [place] [address] 49893- 8065 May, [facility] [id number] [place] [address] 24278- 1029 Apr, [facility] [id number] [place] [address] 77353- 8216 Apr, [facility] [id number] [place] [address] 83164- 5240 Apr, [facility] [address] [address]- 8331 Apr, Cervical disc disease M50.90 [facility] [id number] [place] [address] 17669- 8145 Apr, [facility] [id number] [place] [address] 59895- 8385 Apr, Neck pain M54.2 ; Hypertension I10 and Reactive depression F32.9 [facility] [id number] [place] [address] 53832- 0184 Mar, [facility] [address] 50415- 0094 Mar, [facility] [id number] [place] [address] 30259- 7479 Mar, [facility] [address] 90725- 9936 Feb, Sciatica M54.30 [facility] [address] 44357- 5588 Feb, Paresthesias R20.2 ; Sciatica M54.30 and Reactive depression F32.9 [facility] [id number] [place] [address] 32714- 5272 Feb, [facility] [address] 14280- 1311 January, [facility] [address] 52242- 6602 January, Hyperlipemia, mixed E78.2 ; Other abnormalities of heart beat R00.8 and Anxiety F41.9 [facility] [id number] [place] [address] 53052- 7327 January, [facility] [id number] [place] [address] 94064- 8403 January, Low back pain M54.5 [facility] [id number] [place] [address] 07420- 8035 January, Anxiety disorder, unspecified F41.9 [facility] [address] 25632- 8048 Dec, Ventricular bigeminy I49.9 [facility] [id number] [place] [address] 13409- 5980 Dec, [facility] [address] [place] [address]- 6690 Dec, Low back pain M54.5 [facility] [address] 22172- 7535 Dec, Sciatica M54.30 [facility] [id number] [place] [address] 97289- 2601 Nov, Major depressive disorder, single episode, unspecified F32.9 [facility] [address] 23238- 0910 Nov, Sciatica M54.30 [facility] [address] 35648- 0998 Nov, [facility] [address] 14097- 5149 Nov, [facility] [address] 30802- 4907 Nov, Anxiety disorder, unspecified F41.9 [facility] [id number] [place] [address] 89577- 2286 Nov, [facility] [address] 26615- 5186 Nov, Depressed F32.9 and Anxiety F41.9 [facility] [id number] [place] [address] 04701- 2392 Nov, Lumbago 724.2 ; Sciatica M54.30 and PVCs (premature ventricular contractions) I49.3 [facility] [id number] [place] [address] 53559- 5421 Oct, [facility] [address] 61527- 5916 Oct, [facility] [id number] [place] [address] 74730- 5769 Oct, Sciatica M54.30 and Hypertension I10 [facility] [address], [place] [address]- 6838 Oct, [facility] [id number] [place] [address] 19775- 4138 Oct, [facility] [id number] [place] [address] 82845- 9621 Oct, [facility] [id number] [place] [address] 64595- 6356 Sep, [facility] [id number] [place] [address] 59042- 9304 Sep, [facility] [id number] [place] [address] 04137- 3071 Sep, [facility] [id number] [place] [address] 15743- 0230 Sep, Ventricular arrhythmia I49.9 [facility] [id number] [place] [address] 55237- 6996 Sep, Ventricular bigeminy I49.9 and Hypertension I10 [facility] [id number] [place] [address] 09309- 5866 Sep, Lumbago M54.5 and Ventricular bigeminy I49.9 [facility] [address] [place] [address] 81654- 6644 Sep, [facility] [id number] [place] [address] 63338- 3952 Aug, [facility] [id number] [place] [address] 38750- 6851 Aug, [facility] [id number] [place] [address] 03192- 8386 Aug, [facility] [address], [place] [address]- 6455 Aug, [facility] [id number] [place] [address] 64266- 7193 Aug, [facility] [address], [place] [address]- 5935 Jul, [facility] [address], [place] [address]- 6881 Jun, [facility] [address]- 6608 May, [facility] [address], [place] [address]- 4515 May, [facility] [address] 8279 May, Lumbago 724.2 and Depressive disorder, not elsewhere classified 311 [facility] [id number] [address]- 6818 Apr, UTI (urinary tract infection) 599.0 [facility] [address], [place] [address]- 3309 Apr, UTI (urinary tract infection) 599.0 and Depression 311 [facility] [address], [place] [address]- 7608 Mar, [facility] [id number] [address]- 5339 Mar, [facility] [address], [place] [address]- 9661 Mar, [facility] [id number] [address]- 7829 Mar, Unspecified essential hypertension 401.9 ; Lumbago 724.2 and Anxiety 300.00 [facility] [id number] [address]- 2993 Mar, [facility] [id number] [address]- 1014 Feb, [facility] [address] [place] [address]- 0503 Feb, [facility] [place] [facility] [address] [id number] [place] [address]- 9683 January, [facility] [place] [facility] [address] [id number] [place] [address]- 5963 Dec, [facility] [place] [facility] [address] [id number] [place] [address]- 1380 Dec, [facility] [place] [facility] [address] [id number] [place] [address]- 4420 Oct, [facility] [place] [facility] [address] [id number] [place] [address]- 8696 Oct, [facility] [place] [facility] [address] [id number] [place] [address]- 3305 Oct, [facility] [place] [facility] [address] [id number] [place] [address]- 7465 Oct, [facility] [place] [facility] [address] [id number] [place] [address]- 3868 Sep, [facility] [place] [facility] [address] [id number] [place] [address]- 9090 Sep, [facility] [place] [facility] [address] [facility] [id number] [place] [address]- 9261 Sep, [facility] [place] [facility] [address] [id number] [place] [address]- 7618 Sep, [facility] [place] [facility] [address] [id number] [place] [address]- 8006 Aug, [facility] [place] [facility] [address] [id number] [place]68 Aug, [facility] [place] [facility] [address] [id number] [place] [address]- 7668 Jul, [facility] [place] [facility] [address] [id number] [place] [address]- 0465 Jul, [facility] [place] [facility] [address] [id number] [place] [address]- 6346 Jun, [facility] [place] [facility] [address] [id number] [place] [address]- 0836 Jun, [facility] [place] [facility] [address] [id number] [place] [address]- 8891 Jun, [facility] [place] [facility] [address] [id number] [place] [address]- 7328 Jun, [facility] [place] [facility] [address] [id number] [place] [address]- 2859 Jun, [facility] [place] [facility] [address] [id number] [place] [address]- 4022 Jun, [facility] [place] [facility] [address] [id number] [place] [address]- 2879 May, [facility] [place] [facility] [address] [id number] [place] [address]- 1784 May, [facility] [place] [facility] [address] [id number] [place] [address]- 9974 Apr, [facility] [place] [facility] [address] [id number] [place] [address]- 0087 Apr, [facility] [place] [facility] [address] [id number] [place] [address]- 8308 Apr, [facility] [place] [facility] [address] [id number] [place] [address]- 1751 Apr, [facility] [place] [facility] [address] [id number] [place] [address]- 0202 Mar, [facility] [place] [facility] [address] [id number] [place] [address]- 7579 Mar, [facility] [place] [facility] [address] [id number] [place] [address]- 9350 Mar, [facility] [place] [facility] [address] [id number] [place] [address]- 1740 Mar, [facility] [place] [facility] [address] [id number] [place] [address]- 1243 Mar, [facility] [place] [facility] [address] [id number] [place] [address]- 5761 Mar, [facility] [place] [facility] [address] [id number] [place] [address]- 5650 Mar, [facility] [place] [facility] [address] [id number] [place] [address]- 0890 Mar, [facility] [place] [facility] [address] [id number] [place] [address]- 4691 Feb, [facility] [place] [facility] [address] [id number] [place] [address]- 0553 Feb, [facility] [place] [facility] [address] [id number] [place] [address]- 1473 January, [facility] [place] [facility] [address] [id number] [place] [address]- 4775 January, [facility] [place] [facility] [address] [id number] [place] [address]- 2181 January, [facility] [place] [facility] [address] [id number] [place] [address]- 3164 January, [facility] [place] [facility] [address] [id number] [place] [address]- 9382 Dec, [facility] [place] [facility] [address] [id number] [place] [address]- 1264 Dec, [facility] [place] [facility] [address] [id number] [place] [address]- 3484 Dec, [facility] [place] [facility] [address] [id number] [place] [address]- 2488 Dec, [facility] [place] [facility] [address] [id number] [place] [address]- 3620 Nov, [facility] [place] [facility] [address] [id number] [place] [address]- 0063 Nov, [facility] [place] [facility] [address] [id number] [place] [address]- 7773 Sep, [facility] [place] [facility] [address] [id number] [place] [address]- 7832 Sep, [facility] [place] [facility] [address] [id number] [place] [address]- 1017 Sep, [facility] [place] [facility] [address] [id number] [place] [address]- 9180 Sep, [facility] [place] [facility] [address] [id number] [place] [address]- 8267 Sep, [facility] [place] [facility] [address] [id number] [place] [address]- 9276 Sep, [facility] [place] [facility] [address] [id number] [place] [address]- 1327 Aug, [facility] [place] [facility] [address] [id number] [place] [address]- 7623 Aug, [facility] [place] [facility] [address] [id number] [place] [address] Aug, [facility] [place] [facility] [address] [id number] [place] [address] Aug, [facility] [place] [facility] [address] [id number] [place] [address] Jul, [facility] [place] [facility] [address] [id number] [place] [address] Jul, [facility] [place] [facility] [address] [id number] [place] [address] Jun, [facility] [place] [facility] [address] [id number] [place] [address] Jun, [facility] [place] [facility] [address] [id number] [place] [address] Mar, [facility] [address] [id number] [address] January, [facility] [id number] [address] Dec, [facility] [address] [id number] [address] Dec, [facility] [id number] [address] Nov, [facility] [id number] [place] [address] Nov, [facility] [id number] [address] Oct, [facility] [id number] [address] January, [facility] [id number] [address] Dec, [facility] [id number] [address] Sep, IMMUNIZATIONS No Known Immunizations SOCIAL [...]
--- OUTSIDE RECORDS SUMMARY | 2018-08-12 07:14 | XMS REPORT ---
Author Author JOHANNY KINNEY Organization [facility] Address [address] [place] [address] Care Team Providers Care Business Analyst Sales Operations Name Role Phone JOHANNY KINNEY Unavailable PROBLEMS Type Condition ICD9-CM Code [id number] Code Onset Dates Condition Status SNOMED Code Problem Neck pain M54.2 Active 41376283 Problem Gastroesophageal reflux disease, esophagitis presence not specified K21.9 Active 331555273 Problem Cervical disc disease M50.90 Active 403102417 Problem Chronic maxillary sinusitis J32.0 Active 75212653 Problem Right maxillary sinusitis J32.0 Active 59153511 Problem Mixed hyperlipidemia E78.2 Active 751417446 Problem Anxiety disorder, unspecified F41.9 Active 506795618 Problem Sinusitis chronic, frontal J32.1 Active 73676344 Problem Prediabetes R73.03 Active 258327936 Problem PVCs (premature ventricular contractions) I49.3 Active 09119587 Problem Reactive depression F32.9 Active 17426723 Problem Hypertension I10 Active 30222159 Problem Lumbago with sciatica, right side M54.41 Active 259676808 Problem Sciatica M54.30 Active 30424924 Problem Other chronic pain G89.29 Active 04791268 ALLERGIES No Known Allergies ENCOUNTERS Encounter Location Date Diagnosis [facility] [id number] [place] [address] 91043- 1111 Mar, Gastroesophageal reflux disease, esophagitis presence not specified K21.9 and Low back pain M54.5 [facility] [id number] [place] [address] 86184 -7575 20 Feb, 2018 Chronic maxillary sinusitis J32.0 [facility] [id number] [place] [address] 19222- 3262 14 Feb, 2018 Low back pain M54.5 [facility] [id number] [place] [address] 43749- 1855 Feb, Low back pain M54.5 [facility] [address] 70994- 1212 Feb, Low back pain M54.5 [facility] [address] 84823- 7855 January, [facility] [address] 29517- 3802 January, Sinusitis chronic, frontal J32.1 [facility] [address] 79068- 7911 January, Lumbago with sciatica, right side M54.41 ; Cervical disc disease M50.90 ; Hypertension I10 and Gastroesophageal reflux disease, esophagitis presence not specified K21.9 [facility] [address] 91917- 5516 Dec, Low back pain M54.5 [facility] [address] 48989- 9546 Dec, Low back pain M54.5 [facility] [address] 05735- 0304 Nov, [facility] [id number] [place] [address] 28416 -4557 Nov, Right maxillary sinusitis J32.0 [facility] [id number] [place] [address] 62098- 2000 Nov, Low back pain M54.5 [facility] [address] 47477 -3966 Oct, Sinusitis chronic, frontal J32.1 [facility] [id number] [place] [address] 69882- 3404 Oct, Neck pain M54.2 [facility] [address] 50048- 5868 Sep, Low back pain M54.5 [facility] [address] 11498- 8810 Sep, Neck pain M54.2 [facility] [address] 77947- 9510 Sep, Lumbago with sciatica, right side M54.41 ; Hypertension I10 ; Bronchitis J40 and Anxiety disorder, unspecified F41.9 [facility] [address] 82186- 6632 Aug, Neck pain M54.2 and Low back pain M54.5 [facility] [address] 85493- 4281 16 Jul, 2017 Neck pain M54.2 and Low back pain M54.5 [facility] [address] 73461- 7963 Jul, Neck pain M54.2 [facility] [address] 20794- 3565 Jun, Low back pain M54.5 and Neck pain M54.2 [facility] [id number] [place] [address] 41427- 4548 22 May, 2017 Low back pain M54.5 and Neck pain M54.2 [facility] [address] 46903- 6101 21 May, 2017 [facility] [address] 33336 -9482 14 May, 2017 Bronchitis J40 [facility] [address] 40118- 9728 Apr, Hyperglycemia R73.9 [facility] [id number] [place] [address] 30814- 2403 Apr, Hyperglycemia R73.9 [facility] [id number] [place] [address] 65351- 3759 Apr, Gastroesophageal reflux disease, esophagitis presence not specified K21.9 ; Mixed hyperlipidemia E78.2 ; Neck pain M54.2 and PVCs ( premature ventricular contractions) I49.3 [facility] [id number] [place] [address] 69849- 9013 Mar, Low back pain M54.5 [facility] [address] 79729- 7377 Feb, Low back pain M54.5 and Gastroesophageal reflux disease, esophagitis presence not specified K21.9 [place] [address] 25374- 1298 January, Dyspnea on exertion R06.09 [place] [address] 48003- 6800 January, Hypertension I10 [place] [address] 37795- 3129 January, [facility] [id number] [place] [address] 66696- 1556 January, Low back pain M54.5 [place] [id number] [place] [address] 89918- 1909 January, Low back pain M54.5 [place] [id number] [place] [address] 95259- 4038 January, Gastroesophageal reflux disease, esophagitis presence not specified K21.9 ; Lumbago with sciatica, right side M54.41 and Dyspnea on exertion R06.09 [place] [id number] [place] [address] 55688- 3814 Nov, [place] [id number] [place] [address] 60648- 6804 Nov, [facility] [id number] [place] [address] 00394- 5705 Nov, Gastroesophageal reflux disease, esophagitis presence not specified K21.9 and Bronchitis J40 [facility] [address] 23396- 8021 15 Oct, 2016 Low back pain M54.5 and Anxiety disorder, unspecified F41.9 [facility] [address] 11325- 1930 10 Oct, 2016 Bronchitis J40 ; Hypertension I10 ; Sciatica M54.30 and Paresthesias R20.2 [facility] [address] [id number] Sep, Dental examination Z01.20 [facility] [address] [id number] Sep, Dental examination Z01.20 and Dental caries K02.9 [facility] [address] 94976- 5164 Aug, [facility] [address] 24349- 8325 Jul, Low back pain M54.5 and Anxiety disorder, unspecified F41.9 [facility] [address] 92064- 9393 Jul, [facility] [address] 77766- 0340 Jun, Lumbago with sciatica, right side M54.41 ; Cervical disc disease M50.90 and Gastroesophageal reflux disease, esophagitis presence not specified K21.9 [facility] [id number] [place] [address] 38097- 6571 Jun, [facility] [address] 23033- 7582 Jun, [facility] [id number] [place] [address] 16003- 0155 Jun, [facility] [address] 03160- 9884 Jun, [facility] [address] [address]- 7869 Jun, [facility] [id number] [place] [address] 93509- 2771 23 May, 2016 [facility] [id number] [place] [address] 57419- 7247 May, [facility] [id number] [place] [address] 47757- 4022 May, [facility] [id number] [place] [address] 10588- 0660 Apr, [facility] [id number] [place] [address] 14182- 0122 Apr, [facility] [id number] [place] [address] 63565- 7818 Apr, [facility] [id number] [place] [address] 51739- 6089 Apr, Cervical disc disease M50.90 [facility] [id number] [place] [address] 13038- 5721 Apr, [facility] [id number] [place] [address] 36245- 1086 Apr, Neck pain M54.2 ; Hypertension I10 and Reactive depression F32.9 [facility] [id number] [place] [address] 27142- 6213 Mar, [facility] [id number] [place] [address] 70650- 5848 Mar, [facility] [id number] [place] [address] 85076- 5434 Mar, [facility] [id number] [place] [address] 50326- 7399 Feb, Sciatica M54.30 [facility] [address] 75262- 2612 13 Feb, 2016 Paresthesias R20.2 ; Sciatica M54.30 and Reactive depression F32.9 [place] [address] 33355- 5265 06 Feb, 2016 [facility] [address] 36029- 2771 January, [facility] [address] 01847- 3521 January, Hyperlipemia, mixed E78.2 ; Other abnormalities of heart beat R00.8 and Anxiety F41.9 [place] [address] 85822- 0743 January, [place] [address] 30687- 9615 January, Low back pain M54.5 [place] [address] 98992- 1082 January, Anxiety disorder, unspecified F41.9 [place] [address] 70504- 7986 18 Dec, 2015 Ventricular bigeminy I49.9 [facility] [address] 20385- 1803 Dec, [facility] [address] 62784- 7562 Dec, Low back pain M54.5 [facility] [id number] [place] [address] 39068- 9412 Dec, Sciatica M54.30 [facility] [address] 82028- 1673 Nov, Major depressive disorder, single episode, unspecified F32.9 [facility] [address] 63688- 7796 14 Nov, 2015 Sciatica M54.30 [facility] [id number] [place] [address] 87737- 6507 14 Nov, 2015 [facility] [address] 61659- 0878 Nov, [facility] [id number] [place] [address] 19649- 9522 Nov, Anxiety disorder, unspecified F41.9 [facility] [address] 22265- 2970 Nov, [facility] [address] 14775- 5196 Nov, Depressed F32.9 and Anxiety F41.9 [facility] [address] 93292- 8799 Nov, Lumbago 724.2 ; Sciatica M54.30 and PVCs (premature ventricular contractions) I49.3 [facility] [id number] [place] [address] 51956- 4471 Oct, [facility] [address] 36764- 8488 Oct, [facility] [id number] [place] [address] 20314- 4216 Oct, Sciatica M54.30 and Hypertension I10 [facility] [id number] [place] [address] 95796- 9119 Oct, [facility] [id number] [place] [address] 61321- 0564 Oct, [facility] [address] 25144- 7243 Oct, [facility] [id number] [place] [address] 43169- 6709 Sep, [facility] [address] 54995- 9482 Sep, [facility] [id number] [place] [address], [place] [address]- 0975 Sep, [facility] [id number] [place] [address] 30670- 3671 Sep, Ventricular arrhythmia I49.9 [facility] [id number] [place] [address] 00711- 4903 Sep, Ventricular bigeminy I49.9 and Hypertension I10 [facility] [id number] [place] [address] 69585- 3209 Sep, Lumbago M54.5 and Ventricular bigeminy I49.9 [facility] [id number] [place] [address], [place] [address]- 2192 Sep, [facility] [id number] [place] [address] 74735- 1150 Aug, [facility] [id number] [place] [address] 12990- 6894 Aug, [facility] [id number] [place] [address], [place] [address]- 9822 Aug, [facility] [address] [address]- 1621 Aug, [facility] [id number] [place] [address] 37252- 1999 Aug, [facility] [address] [address]- 7571 Jul, [facility] [id number] [place] [address] 61365- 3804 29 Jun, 2015 [facility] [address] [address]- 4782 14 May, 2015 [facility] [address] [address]- 6230 10 May, 2015 [facility] [address] [address]- 4896 May, Lumbago 724.2 and Depressive disorder, not elsewhere classified 311 [facility] [address] [address]- 4753 Apr, UTI (urinary tract infection) 599.0 [facility] [id number] [place] [address] 726993- 9883 Apr, UTI (urinary tract infection) 599.0 and Depression 311 [facility] [address]- 6892 Mar, [facility] [id number] [place] [address] 61197- 2455 Mar, [facility] [address] [address]- 3611 Mar, [facility] [address] [address]- 8685 Mar, Unspecified essential hypertension 401.9 ; Lumbago 724.2 and Anxiety 300.00 [facility] [address] [address]- 1167 Mar, [facility] [address] [address]- 9405 Feb, [facility] [address] [address]- 2531 Feb, [facility] [address] [address]- 2076 January, [facility] [address]- 3238 Dec, [facility] [id number] [address]- 7809 Dec, [facility] [id number] [address]- 0381 Oct, 2014 [facility] [place] [facility] [address] [id number] [place] [address]- 2145 10 Oct, 2014 [facility] [place] [facility] [address] [id number] [place] [address]- 4757 Oct, [facility] [place] [facility] [address] [id number] [place] [address]- 9481 Oct, [facility] [place] [facility] [address] [id number] [place] [address]- 6114 Sep, [facility] [place] [facility] [address] [id number] [place] [address]- 9644 Sep, [facility] [place] [facility] [address] [id number] [place] [address]- 0398 Sep, [facility] [place] [facility] [address] [id number] [place] [address]- 2117 Sep, [facility] [place] [facility] [address] [id number] [place] [address]- 7415 Aug, [facility] [place] [facility] [address] [id number] [place] [address]- 9902 Aug, [facility] [place] [facility] [address] [id number] [place] [address]- 8372 Jul, [facility] [place] [facility] [address] [id number] [place] [address]- 8894 Jul, [facility] [place] [facility] [address] [id number] [place] [address]- 1344 Jun, [facility] [place] [facility] [address] [id number] [place] [address]- 1506 Jun, [facility] [place] [facility] [address] [id number] [place] [address]- 6580 Jun, [facility] [place] [facility] [address] [id number] [place] [address]- 4813 Jun, [facility] [place] [facility] [address] [id number] [place] [address]- 0600 Jun, [facility] [place] [facility] [address] [id number] [place] [address]- 2211 Jun, [facility] [place] [facility] [address] [id number] [place] [address]- 5933 May, [facility] [place] [facility] [address] [id number] [place] [address]- 7378 May, [facility] [place] [facility] [address] [id number] [place] [address]- 6961 Apr, [facility] [place] [facility] [address] [id number] [place] [address]- 1449 Apr, [facility] [place] [facility] [address] [id number] [place] [address]- 1413 Apr, [facility] [place] [facility] [address] [id number] [place] [address]- 1408 Apr, [facility] [place] [facility] [address] [id number] [place] [address]- 6469 Mar, [facility] [place] [facility] [address] [id number] [place] [address]- 8182 Mar, [facility] [place] [facility] [address] [id number] [place] [address]- 1655 Mar, [facility] [place] [facility] [address] [id number] [place] [address]- 9037 Mar, [facility] [place] [facility] [address] [id number] [place] [address]- 4307 Mar, [facility] [place] [facility] [address] [id number] [place] [address]- 1605 Mar, [facility] [place] [facility] [address] [id number] [place] [address]- 6259 Mar, [facility] [place] [facility] [address] [id number] [place] [address]- 0030 Mar, [facility] [place] [facility] [address] [id number] [place] [address]- 1779 Feb, [facility] [place] [facility] [address] [id number] [place] [address]- 5151 Feb, [facility] [place] [facility] [address] [id number] [place] [address]- 9287 January, [facility] [place] [facility] [address] [id number] [place] [address]- 0182 January, [facility] [place] [facility] [address] [id number] [place] [address]- 5147 January, [facility] [place] [facility] [address] [id number] [place] [address]- 8388 January, [facility] [place] [facility] [address] [id number] [place] [address]- 5368 Dec, [facility] [place] [facility] [address] [id number] [place] [address]- 1810 Dec, [facility] [place] [facility] [address] [id number] [place] [address]- 5224 Dec, [facility] [place] [facility] [address] [id number] [place] [address]- 6409 Dec, [facility] [place] [facility] [address] [id number] [place] [address]- 1781 Nov, [facility] [place] [facility] [address] [id number] [place] [address]- 8904 Nov, [facility] [place] [facility] [address] [id number] [place] [address]- 5785 Sep, [facility] [place] [facility] [address] [id number] [place] [address]- 6031 Sep, [facility] [place] [facility] [address] [id number] [place] [address]- 4764 Sep, [facility] [place] [facility] [address] [id number] [place] [address]- 2523 Sep, [facility] [address] [id number] [place] [address]- 0818 Sep, [facility] [place] [facility] [address] [id number] [place] 6587 Sep, [facility] [place] [facility] [address] [id number] [place] [address] Aug, [facility] [place] [facility] [address] [id number] [place] [address] Aug, [facility] [place] [facility] [address] [id number] [place] [address] Aug, [facility] [place] [facility] [address] [id number] [place] [address] Aug, [facility] [place] [facility] [address] [id number] [place] [address] Jul, [facility] [place] [facility] [address] [id number] [place] [address] Jul, [facility] [place] [facility] [address] [id number] [place] [address] Jun, [facility] [place] [facility] [address] [id number] [place] [address] Jun, [facility] [place] [facility] [address] [id number] [place] [address] Mar, [facility] [place] [facility] [address] [id number] [place] [address] January, [facility] [place] [facility] [address] [id number] [place] [address] Dec, [facility] [place] [facility] [address] [id number] [place] [address] Dec, [facility] [place] [facility] [address] [id number] [place] [address] Nov, [facility] [place] [facility] [address] [id number] [place] [address] Nov, [facility] [address] [facility] [id number] [place] [address] Oct, [facility] [address] [facility] [id number] [place] [address] January, [facility] [address] [facility] [id number] [place] [address] Dec, [facility] [address] [facility] [id number] [place] [address] Sep, IMMUNIZATIONS No Known Immunizations SOCIAL HISTORY Never Assessed REASON FOR VISIT Pain management (chronic)- Karen Oden RN, PDM, PLAN OF CARE Activity Details Follow Up 3 Months, needs A1c then Reason: VITAL SIGNS Height 62 in 2018-01-08 Weight 167 lbs 2018-01-08 Temperature 98.0 degrees Fahrenheit 2018-01-08 Heart Rate 78 bpm 2018-01-08 Respiratory Rate 18 2018-01-08 BMI 30.54 kg/m2 2018-01-08 Blood pressure systolic 130 mmHg 2018-01-08 Blood pressure diastolic 90 mmHg 2018-01-08 MEDICATIONS Medication Instructions Dosage Frequency Start Date End Date Duration Status Gabapentin 600MG Orally 2 times a day 1 tablet 12h Active Zoloft 50MG Orally Once a day 1 tablet 24h Active C-PAP Machine Active ProAir HFA 108 (90 Base) MCG/ACT Inhalation every 4 hrs 2 puffs as needed 4h 14 May, 2017 5 days Active Protonix 40 mg Orally twice a day 1 tablet 12h 30 Nov, 2016 30 day(s) Active Metoprolol Succinate ER 50MG TAKE ONE TABLET BY MOUTH ONCE DAILY Active Flonase 50 MCG/ACT Nasally twice a day 1 spray in each nostril 12h Oct, 07 days Active Cyclobenzaprine HCl 10MG Orally Three times a day 1 tablet 8h 90 Active Lipitor 10 MG Orally Once a day 1 tablet 24h Active Diazepam 5MG Orally, each fill must last 30 days Twice a day 1 tablet as needed 12h 28 days Active Tramadol HCl 50MG Orally, each fill must last 30 days every 6 hours 1 tablet 6h 28 days Active RESULTS No Results PROCEDURES Procedure Date Ordered Result Body Site DRUG SCREENING TRAMADOL January 08, 2018 09 PANEL (PROFILE 1) January 08, 2018 INSTRUCTIONS MEDICATIONS ADMINISTERED No Known Medications [...]
--- OUTSIDE RECORDS SUMMARY | 2018-08-12 07:14 | XMS REPORT ---
Author Author JOHANNY KINNEY Organization [facility] Address [address] [place] [address] Care Team Providers Care Pensions Retirement Plan Specialist Name Role Phone JOHANNY KINNEY Unavailable PROBLEMS Type Condition ICD9-CM Code OUI64-KN Code Onset Dates Condition Status SNOMED Code Problem Neck pain M54.2 Active 58399588 Problem Gastroesophageal reflux disease, esophagitis presence not specified K21.9 Active 203010188 Problem Cervical disc disease M50.90 Active 467634142 Problem Chronic maxillary sinusitis J32.0 Active 22921768 Problem Right maxillary sinusitis J32.0 Active 51290182 Problem Mixed hyperlipidemia E78.2 Active 507171968 Problem Anxiety disorder, unspecified F41.9 Active 856887680 Problem Sinusitis chronic, frontal J32.1 Active 52462644 Problem Prediabetes R73.03 Active 450608052 Problem PVCs (premature ventricular contractions) I49.3 Active 90622956 Problem Reactive depression F32.9 Active 37445523 Problem Hypertension I10 Active 15480253 Problem Lumbago with sciatica, right side M54.41 Active 892076272 Problem Sciatica M54.30 Active 15512326 Problem Other chronic pain G89.29 Active 60515829 ALLERGIES No Information ENCOUNTERS Encounter Location Date Diagnosis [facility] [address] [address] Apr, [facility] [address] [address] Apr, [facility] [address] [place] [address] 84453- 7623 Apr, Low back pain M54.5 [facility] [id number] [address] 3314 Apr, Low back pain M54.5 [facility] [id number] [place] [address] 17946- 5185 Mar, Gastroesophageal reflux disease, esophagitis presence not specified K21.9 and Low back pain M54.5 [facility] [id number] [place] [address] 62617 -1739 Feb, Chronic maxillary sinusitis J32.0 [facility] [address] [address]- 1292 Feb, Low back pain M54.5 [facility] [address] 14838- 7295 Feb, Low back pain M54.5 [facility] [address] 73204- 3621 Feb, Low back pain M54.5 [place] [address] 47448- 8037 January, [facility] [address] 36413- 6004 January, Sinusitis chronic, frontal J32.1 [facility] [address] 00865- 8440 January, Lumbago with sciatica, right side M54.41 ; Cervical disc disease M50.90 ; Hypertension I10 and Gastroesophageal reflux disease, esophagitis presence not specified K21.9 [facility] [id number] [place] [address] 98875- 2822 Dec, Low back pain M54.5 [facility] [id number] [place] [address] 63879- 2207 Dec, Low back pain M54.5 [facility] [id number] [place] [address] 91652- 9516 Nov, [facility] [id number] [place] [address] 38740 -7160 22 Mar, 2018 Right maxillary sinusitis J32.0 [facility] [id number] [place] [address] 66587- 1419 Nov, Low back pain M54.[address] [facility] [id number] [place] [address] 05254 -3874 Oct, Sinusitis chronic, frontal J32.1 [facility] [address] 87779- 0841 Oct, Neck pain M54.2 [facility] [address] 42346- 7405 Sep, Low back pain M54.5 [facility] [address] 55998- 0401 Sep, Neck pain M54.2 [facility] [address] 84490- 7700 Sep, Lumbago with sciatica, right side M54.41 ; Hypertension I10 ; Bronchitis J40 and Anxiety disorder, unspecified F41.9 [facility] [address] 44319- 0953 Aug, Neck pain M54.2 and Low back pain M54.5 [facility] [address] 01093- 0979 16 Jul, 2017 Neck pain M54.2 and Low back pain M54.5 [facility] [id number] [place] [address] 47165- 4046 Jul, Neck pain M54.2 [facility] [address] 08198- 1264 Jun, Low back pain M54.5 and Neck pain M54.2 [facility] [id number] [place] [address] 08444- 1787 May, Low back pain M54.5 and Neck pain M54.2 [facility] [id number] [place] [address] 4056 21 May, [address] [facility] [id number] [place] [address] 32108 -1240 14 May, 2017 Bronchitis J40 [facility] [id number] [place] [address] 86606- 8987 11 Apr, 2017 Hyperglycemia R73.9 [facility] [address] 75498- 1234 08 Apr, 2017 Hyperglycemia R73.9 [facility] [id number] [place] [address] 54995- 1275 07 Apr, 2017 Gastroesophageal reflux disease, esophagitis presence not specified K21.9 ; Mixed hyperlipidemia E78.2 ; Neck pain M54.2 and PVCs ( premature ventricular contractions) I49.3 [facility] [id number] [place] [address] 24908- 4027 Mar, Low back pain M54.5 [facility] [id number] [place] [address] 38263- 9476 Feb, Low back pain M54.5 and Gastroesophageal reflux disease, esophagitis presence not specified K21.9 [facility] [id number] [place] [address] 66012- 4621 January, Dyspnea on exertion R06.09 [facility] [id number] [place] [address] 59999- 3142 January, Hypertension I10 [facility] [id number] [place] [address] 75724- 3907 January, [facility] [address] 33323- 6961 January, Low back pain M54.5 [facility] [id number] [place] [address] 52359- 5021 January, Low back pain M54.5 [facility] [address] 48091- 2985 January, Gastroesophageal reflux disease, esophagitis presence not specified K21.9 ; Lumbago with sciatica, right side M54.41 and Dyspnea on exertion R06.09 [place] [id number] [place] [address] 08149- 4830 Nov, [facility] [id number] [place] [address] 26294- 1453 Nov, [place] [address] 78312- 2633 Nov, Gastroesophageal reflux disease, esophagitis presence not specified K21.9 and Bronchitis J40 [place] [address] 10665- 4456 15 Oct, 2016 Low back pain M54.5 and Anxiety disorder, unspecified F41.9 [place] [address] 44827- 6916 10 Oct, 2016 Bronchitis J40 ; Hypertension I10 ; Sciatica M54.30 and Paresthesias R20.2 [facility] [address] [id number] Sep, Dental examination Z01.20 [facility] [address] [id number] Sep, Dental examination Z01.20 and Dental caries K02.9 [place] [id number] [place] [address] 88495- 5743 Aug, [place] [address] 86268- 0050 17 Jul, 2016 Low back pain M54.5 and Anxiety disorder, unspecified F41.9 [place] [address] 94181- 8208 11 Jul, 2016 [place] [id number] [place] [address] 34517- 7588 31 Jun, 2016 Lumbago with sciatica, right side M54.41 ; Cervical disc disease M50.90 and Gastroesophageal reflux disease, esophagitis presence not specified K21.9 [facility] [id number] [place] [address] 79822- 3719 Jun, [facility] [id number] [place] [address] 10404- 9400 Jun, [facility] [id number] [place] [address] 82419- 9905 Jun, [facility] [id number] [place] [address] 62338- 4214 Jun, [facility] [id number] [place] [address] 46457- 6397 Jun, [facility] [id number] [place] [address] 61772- 8172 May, [facility] [id number] [place] [address] 13774- 2564 May, [facility] [id number] [place] [address] 27945- 7467 May, [facility] [id number] [place] [address] 35423- 0906 Apr, [facility] [id number] [place] [address] 49332- 2032 Apr, [facility] [address] [place] [address] 31773- 4380 Apr, [facility] [address] [address]- 5902 Apr, Cervical disc disease M50.90 [facility] [id number] [place] [address] 36671- 7595 Apr, [facility] [address] [place] [address] 59129- 8596 Apr, Neck pain M54.2 ; Hypertension I10 and Reactive depression F32.9 [facility] [id number] [place] [address] 58544- 2846 Mar, [facility] [address] 80262- 3304 Mar, [facility] [id number] [place] [address] 81675- 2166 Mar, [facility] [address] 54376- 0061 Feb, Sciatica M54.30 [facility] [address] 22483- 8320 Feb, Paresthesias R20.2 ; Sciatica M54.30 and Reactive depression F32.9 [facility] [id number] [place] [address] 72023- 2061 Feb, [facility] [address] 24859- 7009 January, [facility] [address] 21746- 3355 January, Hyperlipemia, mixed E78.2 ; Other abnormalities of heart beat R00.8 and Anxiety F41.9 [facility] [id number] [place] [address] 60357- 8767 January, [facility] [id number] [place] [address] 15309- 2831 January, Low back pain M54.5 [facility] [id number] [place] [address] 99501- 6078 January, Anxiety disorder, unspecified F41.9 [facility] [address] 36143- 7664 Dec, Ventricular bigeminy I49.9 [facility] [id number] [place] [address] 23449- 4618 Dec, [facility] [address] [place] [address]- 1883 Dec, Low back pain M54.5 [facility] [address] 02325- 8569 Dec, Sciatica M54.30 [facility] [id number] [place] [address] 84283- 3078 Nov, Major depressive disorder, single episode, unspecified F32.9 [facility] [address] 25303- 4085 Nov, Sciatica M54.30 [facility] [address] 76414- 2183 Nov, [facility] [address] 92932- 8085 Nov, [facility] [address] 75881- 6978 Nov, Anxiety disorder, unspecified F41.9 [facility] [id number] [place] [address] 45342- 1061 Nov, [facility] [address] 84546- 4968 Nov, Depressed F32.9 and Anxiety F41.9 [facility] [id number] [place] [address] 88750- 5722 Nov, Lumbago 724.2 ; Sciatica M54.30 and PVCs (premature ventricular contractions) I49.3 [facility] [id number] [place] [address] 51468- 8987 Oct, [facility] [address] 17394- 0111 Oct, [facility] [id number] [place] [address] 23895- 9157 Oct, Sciatica M54.30 and Hypertension I10 [facility] [address] [address]- 1887 Oct, [facility] [id number] [place] [address] 11806- 5926 Oct, [facility] [id number] [place] [address] 13495- 2580 Oct, [facility] [id number] [place] [address] 69637- 7711 Sep, [facility] [address] [place] [address] 05661- 5333 Sep, [facility] [id number] [place] [address] 05507- 9936 Sep, [facility] [id number] [place] [address] 84987- 9497 Sep, Ventricular arrhythmia I49.9 [facility] [id number] [place] [address] 02735- 4500 Sep, Ventricular bigeminy I49.9 and Hypertension I10 [facility] [id number] [place] [address] 27886- 2287 Sep, Lumbago M54.5 and Ventricular bigeminy I49.9 [facility] [address] [place] [address] 20563- 2432 Sep, [facility] [address] [place] [address] 74541- 4572 Aug, [facility] [address] [place] [address] 21619- 4809 Aug, [facility] [id number] [place] [address] 80612- 6607 Aug, [facility] [address] [address]- 6749 Aug, [facility] [id number] [place] [address] 58128- 4311 Aug, [facility] [address] [address]- 7930 Jul, [facility] [address] [address]- 9295 Jun, [facility] [address] 9998 May, [facility] [address] [address]- 6275 May, [facility] [address] 3595 May, Lumbago 724.2 and Depressive disorder, not elsewhere classified 311 [facility] [id number] [address]- 0561 Apr, UTI (urinary tract infection) 599.0 [facility] [address] [address]- 4322 Apr, UTI (urinary tract infection) 599.0 and Depression 311 [facility] [address] [address]- 6007 Mar, [facility] [id number] [address]- 2433 Mar, [facility] [address] [address]- 1445 Mar, [facility] [id number] [address]- 6155 Mar, Unspecified essential hypertension 401.9 ; Lumbago 724.2 and Anxiety 300.00 [facility] [id number] [address]- 4957 Mar, [facility] [id number] [address]- 7452 Feb, [facility] [id number] [place] [address]- 6353 Feb, [facility] [place] [facility] [address] [id number] [place] [address]- 2031 January, [facility] [place] [facility] [address] [id number] [place] [address]- 1242 Dec, [facility] [place] [facility] [address] [id number] [place] [address]- 7681 Dec, [facility] [place] [facility] [address] [id number] [place] [address]- 9443 Oct, [facility] [place] [facility] [address] [id number] [place] [address]- 5314 Oct, [facility] [place] [facility] [address] [id number] [place] [address]- 2956 Oct, [facility] [place] [facility] [address] [id number] [place] [address]- 7316 Oct, [facility] [place] [facility] [address] [id number] [place] [address]- 3086 Sep, [facility] [place] [facility] [address] [id number] [place] [address]- 6519 Sep, [facility] [place] [facility] [address] [facility] [id number] [place] [address]- 3132 Sep, [facility] [place] [facility] [address] [id number] [place] [address]- 8909 Sep, [facility] [place] [facility] [address] [id number] [place] [address]- 7259 Aug, [facility] [place] [facility] [address] [id number] [place] 9909 Aug, [facility] [place] [facility] [address] [id number] [place] [address]- 2181 Jul, [facility] [place] [facility] [address] [id number] [place] [address]- 9502 Jul, [facility] [place] [facility] [address] [id number] [place] [address]- 2021 Jun, [facility] [place] [facility] [address] [id number] [place] [address]- 9883 Jun, [facility] [place] [facility] [address] [id number] [place] [address]- 4898 Jun, [facility] [place] [facility] [address] [id number] [place] [address]- 4368 Jun, [facility] [place] [facility] [address] [id number] [place] [address]- 2010 Jun, [facility] [place] [facility] [address] [id number] [place] [address]- 8049 Jun, [facility] [place] [facility] [address] [id number] [place] [address]- 8868 May, [facility] [place] [facility] [address] [id number] [place] [address]- 0690 May, [facility] [place] [facility] [address] [id number] [place] [address]- 3755 Apr, [facility] [place] [facility] [address] [id number] [place] [address]- 4210 Apr, [facility] [place] [facility] [address] [id number] [place] [address]- 0385 Apr, [facility] [place] [facility] [address] [id number] [place] [address]- 4637 Apr, [facility] [place] [facility] [address] [id number] [place] [address]- 5814 Mar, [facility] [place] [facility] [address] [id number] [place] [address]- 3318 Mar, [facility] [place] [facility] [address] [id number] [place] [address]- 4741 Mar, [facility] [place] [facility] [address] [id number] [place] [address]- 7266 Mar, [facility] [place] [facility] [address] [id number] [place] [address]- 6212 Mar, [facility] [place] [facility] [address] [id number] [place] [address]- 6518 Mar, [facility] [place] [facility] [address] [id number] [place] [address]- 3803 Mar, [facility] [place] [facility] [address] [id number] [place] [address]- 7329 Mar, [facility] [place] [facility] [address] [id number] [place] [address]- 9071 Feb, [facility] [place] [facility] [address] [id number] [place] [address]- 7952 Feb, [facility] [place] [facility] [address] [id number] [place] [address]- 0556 January, [facility] [place] [facility] [address] [id number] [place] [address]- 6921 January, [facility] [place] [facility] [address] [id number] [place] [address]- 0302 January, [facility] [place] [facility] [address] [id number] [place] [address]- 7580 January, [facility] [place] [facility] [address] [id number] [place] [address]- 8780 Dec, [facility] [place] [facility] [address] [id number] [place] [address]- 4605 Dec, [facility] [place] [facility] [address] [id number] [place] [address]- 0615 Dec, [facility] [place] [facility] [address] [id number] [place] [address]- 5509 Dec, [facility] [place] [facility] [address] [id number] [place] [address]- 9776 Nov, [facility] [place] [facility] [address] [id number] [place] [address]- 5197 Nov, [facility] [place] [facility] [address] [id number] [place] [address]- 5991 Sep, [facility] [place] [facility] [address] [id number] [place] [address]- 3004 Sep, [facility] [place] [facility] [address] [id number] [place] [address]- 3353 Sep, [facility] [place] [facility] [address] [id number] [place] [address] Sep, [facility] [place] [facility] [address] [id number] [place] [address] Sep, [facility] [place] [facility] [address] [id number] [place] [address] Sep, [facility] [place] [facility] [address] [id number] [place] [address] Aug, [facility] [place] [facility] [address] [id number] [place] [address] Aug, [facility] [place] [facility] [address] [id number] [place] [address] Aug, [facility] [place] [facility] [address] [id number] [place] [address] Aug, [facility] [place] [facility] [address] [id number] [place] [address] Jul, [facility] [place] [facility] [address] [id number] [place] [address] Jul, [facility] [place] [facility] [address] [id number] [place] [address] Jun, [facility] [place] [facility] [address] [id number] [place] [address] Jun, [facility] [place] [facility] [address] [id number] [place] [address] Mar, [facility] [id number] [address] January, [facility] [address] [id number] [address] Dec, [facility] [id number] [address] Dec, [facility] [id number] [address] Nov, [facility] [id number] [address] Nov, [facility] [id number] [address] Oct, [facility] [id number] [address] January, [facility] [id number] [address] Dec, [facility] [id number] [address] Sep, IMMUNIZATIONS No Known Immunizations SOCIAL HISTORY Never Assessed REASON FOR VISIT questions PLAN OF CARE VITAL SIGNS MEDICATIONS Unknown [...]
--- OUTSIDE RECORDS SUMMARY | 2018-08-12 07:15 | XMS REPORT ---
Author Author JOHANNY KINNEY Organization [facility] Address [address] [place] [address] Care Team Providers Care Film Booker Name Role Phone JOHANNY KINNEY Unavailable PROBLEMS Type Condition ICD9-CM Code IOX44-UP Code Onset Dates Condition Status SNOMED Code Problem Neck pain M54.2 Active 46500591 Problem Gastroesophageal reflux disease, esophagitis presence not specified K21.9 Active 683627287 Problem Cervical disc disease M50.90 Active 372451415 Problem Chronic maxillary sinusitis J32.0 Active 11743976 Problem Right maxillary sinusitis J32.0 Active 26567074 Problem Mixed hyperlipidemia E78.2 Active 388496538 Problem Anxiety disorder, unspecified F41.9 Active 369412454 Problem Sinusitis chronic, frontal J32.1 Active 19046808 Problem Prediabetes R73.03 Active 101286986 Problem PVCs (premature ventricular contractions) I49.3 Active 31027957 Problem Reactive depression F32.9 Active 24374927 Problem Hypertension I10 Active 32246199 Problem Lumbago with sciatica, right side M54.41 Active 793633041 Problem Sciatica M54.30 Active 21495697 Problem Other chronic pain G89.29 Active 80759662 ALLERGIES No Information ENCOUNTERS Encounter Location Date Diagnosis [facility] [id number] [place] [address] 23631- 3461 Mar, Gastroesophageal reflux disease, esophagitis presence not specified K21.9 and Low back pain M54.5 [facility] [id number] [place] [address] 11473 -2208 20 Feb, 2018 Chronic maxillary sinusitis J32.0 [facility] [address] [address] 1394 14 Feb, 2018 Low back pain M54.5 [facility] [id number] [place] [address] 09432- 0536 Feb, Low back pain M54.5 [facility] [address] 12370- 6344 Feb, Low back pain M54.5 [facility] [address] 65251- 9174 January, [facility] [address] 81074- 8196 January, Sinusitis chronic, frontal J32.1 [facility] [address] 43770- 0183 January, Lumbago with sciatica, right side M54.41 ; Cervical disc disease M50.90 ; Hypertension I10 and Gastroesophageal reflux disease, esophagitis presence not specified K21.9 [facility] [address] 50564- 2776 Dec, Low back pain M54.5 [facility] [address] 14784- 5655 Dec, Low back pain M54.5 [facility] [address] 18390- 8589 Nov, [facility] [id number] [place] [address] 65682 -7283 Nov, Right maxillary sinusitis J32.0 [facility] [id number] [place] [address] 60692- 4213 Nov, Low back pain M54.5 [facility] [id number] [place] [address] 68133 -0443 Oct, Sinusitis chronic, frontal J32.1 [facility] [id number] [place] [address] 89258- 0364 Oct, Neck pain M54.2 [facility] [address] [place] [address]- 0520 Sep, Low back pain M54.5 [facility] [address] 76173- 0888 Sep, Neck pain M54.2 [facility] [address] 53494- 4956 Sep, Lumbago with sciatica, right side M54.41 ; Hypertension I10 ; Bronchitis J40 and Anxiety disorder, unspecified F41.9 [facility] [address] 45636- 2464 Aug, Neck pain M54.2 and Low back pain M54.5 [facility] [address] 37117- 6438 16 Jul, 2017 Neck pain M54.2 and Low back pain M54.5 [facility] [address] 91161- 0115 06 Jul, 2017 Neck pain M54.2 [facility] [address] 40985- 9945 Jun, Low back pain M54.5 and Neck pain M54.2 [facility] [id number] [place] [address] 22238- 1922 22 May, 2017 Low back pain M54.5 and Neck pain M54.2 [facility] [address] 62939- 7978 21 May, 2017 [facility] [address] 06944 -3966 14 May, 2017 Bronchitis J40 [facility] [address] 35062- 0714 Apr, Hyperglycemia R73.9 [facility] [id number] [place] [address] 44288- 5111 Apr, Hyperglycemia R73.9 [facility] [id number] [place] [address]- 4615 Apr, Gastroesophageal reflux disease, esophagitis presence not specified K21.9 ; Mixed hyperlipidemia E78.2 ; Neck pain M54.2 and PVCs ( premature ventricular contractions) I49.3 [facility] [id number] [place] [address] 76607- 3590 Mar, Low back pain M54.5 [facility] [address] 64950- 9996 Feb, Low back pain M54.5 and Gastroesophageal reflux disease, esophagitis presence not specified K21.9 [place] [address] 29564- 5317 January, Dyspnea on exertion R06.09 [facility] [address] 88662- 5362 January, Hypertension I10 [facility] [address] 46192- 9019 January, [facility] [id number] [place] [address] 08699- 5655 January, Low back pain M54.5 [facility] [id number] [place] [address] 87170- 4166 January, Low back pain M54.5 [facility] [id number] [place] [address] 23707- 6528 January, Gastroesophageal reflux disease, esophagitis presence not specified K21.9 ; Lumbago with sciatica, right side M54.41 and Dyspnea on exertion R06.09 [facility] [id number] [place] [address] 90750- 3035 Nov, [facility] [id number] [place] [address] 43607- 6313 Nov, [facility] [id number] [place] [address] 64301- 0810 Nov, Gastroesophageal reflux disease, esophagitis presence not specified K21.9 and Bronchitis J40 [facility] [address] 32219- 8401 15 Oct, 2016 Low back pain M54.5 and Anxiety disorder, unspecified F41.9 [facility] [address] 58852- 4707 10 Oct, 2016 Bronchitis J40 ; Hypertension I10 ; Sciatica M54.30 and Paresthesias R20.2 [facility] [address] [id number] Sep, Dental examination Z01.20 [facility] [address] [id number] Sep, Dental examination Z01.20 and Dental caries K02.9 [facility] [address] 80667- 7564 Aug, [facility] [address] 14319- 2968 Jul, Low back pain M54.5 and Anxiety disorder, unspecified F41.9 [facility] [address] 96174- 6527 Jul, [facility] [address] 11899- 4028 Jun, Lumbago with sciatica, right side M54.41 ; Cervical disc disease M50.90 and Gastroesophageal reflux disease, esophagitis presence not specified K21.9 [facility] [id number] [place] [address] 29790- 4594 Jun, [facility] [address] 22850- 5194 Jun, [facility] [id number] [place] [address] 99815- 6205 Jun, [facility] [address] 57015- 2957 Jun, [facility] [address] [place] [address]- 4063 Jun, [facility] [id number] [place] [address] 78805- 8493 23 May, 2016 [facility] [id number] [place] [address], [place] [address]- 4242 May, [facility] [id number] [place] [address] 61743- 8855 May, [facility] [id number] [place] [address], [place] [address]- 4271 Apr, [facility] [id number] [place] [address] 86944- 1841 Apr, [facility] [id number] [place] [address] 49512- 4589 Apr, [facility] [id number] [place] [address] 83930- 1600 Apr, Cervical disc disease M50.90 [facility] [id number] [place] [address] 31573- 5922 Apr, [facility] [id number] [place] [address] 12284- 6582 Apr, Neck pain M54.2 ; Hypertension I10 and Reactive depression F32.9 [facility] [id number] [place] [address] 49707- 9860 Mar, [facility] [id number] [place] [address] 54345- 9439 Mar, [facility] [id number] [place] [address] 90206- 2389 Mar, [facility] [id number] [place] [address] 62996- 0468 Feb, Sciatica M54.30 [facility] [address] 53990- 8370 13 Feb, 2016 Paresthesias R20.2 ; Sciatica M54.30 and Reactive depression F32.9 [facility] [address] 49413- 3620 06 Feb, 2016 [facility] [address] 73043- 4014 January, [facility] [address] 19286- 4791 January, Hyperlipemia, mixed E78.2 ; Other abnormalities of heart beat R00.8 and Anxiety F41.9 [place] [address] 05216- 7689 January, [place] [address] 74864- 8548 January, Low back pain M54.5 [place] [address] 15969- 4265 January, Anxiety disorder, unspecified F41.9 [facility] [address] 81063- 2498 18 Dec, 2015 Ventricular bigeminy I49.9 [facility] [address] 37566- 3394 Dec, [facility] [address] 46131- 8988 Dec, Low back pain M54.5 [facility] [address] 91451- 4698 Dec, Sciatica M54.30 [facility] [address] 71832- 1764 Nov, Major depressive disorder, single episode, unspecified F32.9 [facility] [address] 47053- 7132 14 Nov, 2015 Sciatica M54.30 [facility] [id number] [place] [address] 15167- 2917 14 Nov, 2015 [facility] [address] 46851- 9014 Nov, [facility] [id number] [place] [address] 45473- 9253 Nov, Anxiety disorder, unspecified F41.9 [facility] [address] 32827- 1763 Nov, [facility] [address] 18608- 7890 Nov, Depressed F32.9 and Anxiety F41.9 [facility] [id number] [place] [address] 97707- 1742 Nov, Lumbago 724.2 ; Sciatica M54.30 and PVCs (premature ventricular contractions) I49.3 [facility] [id number] [place] [address] 18724- 2025 Oct, [facility] [address] 93680- 9930 Oct, [facility] [id number] [place] [address] 49306- 2933 Oct, Sciatica M54.30 and Hypertension I10 [facility] [id number] [place] [address] 22647- 1798 Oct, [facility] [id number] [place] [address] 67207- 2751 Oct, [facility] [address] 95607- 5483 Oct, [facility] [id number] [place] [address] 61907- 0994 Sep, [facility] [address] 41182- 7599 Sep, [facility] [address] [place] [address]- 4704 Sep, [facility] [address] [address]- 6284 Sep, Ventricular arrhythmia I49.9 [facility] [address] [place] [address] 37468- 5711 Sep, Ventricular bigeminy I49.9 and Hypertension I10 [facility] [address] [place] [address] 86259- 0292 Sep, Lumbago M54.5 and Ventricular bigeminy I49.9 [facility] [address] [place] [address], [place] [address]- 8273 Sep, [facility] [id number] [place] [address] 21972- 9725 Aug, [facility] [address], [place] [address]- 8405 Aug, [facility] [id number] [place] [address], [place] [address]- 2234 Aug, [facility] [address], [place] [address]- 1151 Aug, [facility] [address] [place] [address]- 3077 Aug, [facility] [address] [address]- 3305 Jul, [facility] [address] [address]- 5884 29 Jun, 2015 [facility] [address] [address]- 5282 14 May, 2015 [facility] [address] [address]- 9630 May, [facility] [address], [place] [address]- 3241 May, Lumbago 724.2 and Depressive disorder, not elsewhere classified 311 [facility] [address], [place] [address]- 9786 Apr, UTI (urinary tract infection) 599.0 [facility] [address] [place] [address] 003927- 3085 Apr, UTI (urinary tract infection) 599.0 and Depression 311 [facility] [address] 4660 Mar, [facility] [address], [place] [address]- 5386 Mar, [facility] [address], [place] [address]- 5580 Mar, [facility] [address], [place] [address]- 3724 Mar, Unspecified essential hypertension 401.9 ; Lumbago 724.2 and Anxiety 300.00 [facility] [address], [place] [address]- 0112 Mar, [facility] [address], [place] [address]- 5879 Feb, [facility] [address], [place] [address]- 4649 Feb, [facility] [id number] [address]- 5987 January, [facility] [address] 1208 Dec, [facility] [id number] [address]- 1822 Dec, [facility] [id number] [address]- 4686 Oct, [facility] [place] [facility] [address] [id number] [place] [address]- 6954 10 Oct, 2014 [facility] [place] [facility] [address] [id number] [place] [address]- 9254 Oct, [facility] [place] [facility] [address] [id number] [place] [address]- 8735 Oct, [facility] [place] [facility] [address] [id number] [place] [address]- 9112 Sep, [facility] [place] [facility] [address] [id number] [place] [address]- 8163 Sep, [facility] [place] [facility] [address] [id number] [place] [address]- 9822 Sep, [facility] [place] [facility] [address] [id number] [place] [address]- 3834 Sep, [facility] [place] [facility] [address] [id number] [place] [address]- 9835 Aug, [facility] [place] [facility] [address] [id number] [place] [address]- 9269 Aug, [facility] [place] [facility] [address] [id number] [place] [address]- 8579 Jul, [facility] [place] [facility] [address] [id number] [address]- 2401 Jul, [facility] [place] [facility] [address] [id number], [place] [address]- 3535 Jun, [facility] [place] [facility] [address] [id number] [place] [address]- 6749 Jun, [facility] [place] [facility] [address] [id number] [place] [address]- 2646 Jun, [facility] [place] [facility] [address] [id number] [place] [address]- 6103 Jun, [facility] [place] [facility] [address] [id number] [place] [address]- 9526 Jun, [facility] [place] [facility] [address] [id number] [place] [address]- 5032 Jun, [facility] [place] [facility] [address] [id number] [place] [address]- 3429 May, [facility] [place] [facility] [address] [id number] [place] [address]- 9263 May, [facility] [place] [facility] [address] [id number] [place] [address]- 6940 Apr, [facility] [place] [facility] [address] [id number] [place] [address]- 4610 Apr, [facility] [place] [facility] [address] [id number] [place] [address]- 0688 Apr, [facility] [place] [facility] [address] [id number] [place] [address]- 2355 Apr, [facility] [place] [facility] [address] [id number] [place] [address]- 1773 Mar, [facility] [place] [facility] [address] [id number] [place] [address]- 1084 Mar, [facility] [place] [facility] [address] [id number] [place] [address]- 9775 Mar, [facility] [place] [facility] [address] [id number] [place] [address]- 0170 Mar, [facility] [place] [facility] [address] [id number] [place] [address]- 9223 Mar, [facility] [place] [facility] [address] [id number] [place] [address]- 4271 Mar, [facility] [place] [facility] [address] [id number] [place] [address]- 3508 Mar, [facility] [place] [facility] [address] [id number] [place] [address]- 5638 Mar, [facility] [place] [facility] [address] [id number] [place] [address]- 6615 Feb, [facility] [place] [facility] [address] [id number] [place] [address]- 4018 Feb, [facility] [place] [facility] [address] [id number] [place] [address]- 7753 January, [facility] [place] [facility] [address] [id number] [place] [address]- 6637 January, [facility] [place] [facility] [address] [id number] [place] [address]- 3510 January, [facility] [place] [facility] [address] [id number] [place] [address]- 3780 January, [facility] [place] [facility] [address] [id number] [place] [address]- 9011 Dec, [facility] [place] [facility] [address] [id number] [place] [address]- 5841 Dec, [facility] [place] [facility] [address] [id number] [place] [address]- 9550 Dec, [facility] [place] [facility] [address] [id number] [place] [address]- 7364 Dec, [facility] [place] [facility] [address] [id number] [place] [address]- 3026 Nov, [facility] [place] [facility] [address] [id number] [place] [address]- 7696 Nov, [facility] [place] [facility] [address] [id number] [place] [address]- 8283 Sep, [facility] [place] [facility] [address] [id number] [place] [address]- 5717 Sep, [facility] [place] [facility] [address] [id number] [place] [address]- 6069 Sep, [facility] [place] [facility] [address] [id number], [place] [address]- 1624 Sep, [facility] [address] [id number] [place] [address]- 1135 Sep, [facility] [place] [facility] [address] [id number] [place] 6098 Sep, [facility] [place] [facility] [address] [id number] [place] [address]- 4902 Aug, [facility] [place] [facility] [address] [id number] [place] [address]- 8887 Aug, [facility] [place] [facility] [address] [id number] [place] [address]- 0023 Aug, [facility] [place] [facility] [address] [id number] [place] [address]- 9645 Aug, [facility] [place] [facility] [address] [id number] [place] [address]- 9319 Jul, [facility] [place] [facility] [address] [id number] [place] [address]- 7539 Jul, [facility] [place] [facility] [address] [id number] [place] [address]- 6685 Jun, [facility] [place] [facility] [address] [id number] [place] [address]- 2077 Jun, [facility] [place] [facility] [address] [id number], [place] [address]- 5482 Mar, [facility] [place] [facility] [address] [id number] [place] [address]- 8293 January, [facility] [place] [facility] [address] [id number] [place] [address]- 1024 Dec, [facility] [place] [facility] [address] [id number] [place] 3335 Dec, [facility] [place] [facility] [address] [id number] [place] 2780 Nov, [facility] [place] [facility] [address] [facility] [id number] [place] [address]- 2546 Nov, [facility] [address] [facility] [id number], [place] [address]- 3356 Oct, [facility] [address] [facility] [id number], [place] [address]- 2546 January, [facility] [address] [facility] [id number], [place] [address]- 2546 Dec, [facility] [address] [facility] [id number], [place] [address]- 8156 Sep, IMMUNIZATIONS No Known Immunizations SOCIAL HISTORY Never Assessed REASON FOR VISIT Flonase Refill PLAN OF CARE VITAL SIGNS MEDICATIONS Medication Instructions Dosage Frequency Start Date End Date Duration Status Flonase 50 MCG/ACT Nasally twice a day 1 spray in each nostril 12h Oct, 30 days Active RESULTS No Results PROCEDURES No [...]
--- OUTSIDE RECORDS SUMMARY | 2018-08-12 07:15 | XMS REPORT ---
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 Name Role Phone JOHANNY KINNEY Unavailable PROBLEMS Type Condition ICD9-CM Code PNL92-YD Code Onset Dates Condition Status SNOMED Code Problem Neck pain M54.2 Active 20125623 Problem Gastroesophageal reflux disease, esophagitis presence not specified K21.9 Active 773066373 Problem Cervical disc disease M50.90 Active 752404572 Problem Chronic maxillary sinusitis J32.0 Active 88843513 Problem Right maxillary sinusitis J32.0 Active 67582109 Problem Mixed hyperlipidemia E78.2 Active 590335818 Problem Anxiety disorder, unspecified F41.9 Active 046969021 Problem Sinusitis chronic, frontal J32.1 Active 73087096 Problem Prediabetes R73.03 Active 127420648 Problem PVCs (premature ventricular contractions) I49.3 Active 98839749 Problem Reactive depression F32.9 Active 59307043 Problem Hypertension I10 Active 75529141 Problem Lumbago with sciatica, right side M54.41 Active 723486645 Problem Sciatica M54.30 Active 70733750 Problem Other chronic pain G89.29 Active [id number] ALLERGIES No Information ENCOUNTERS Encounter Location Date Diagnosis [facility] [place] [id number] [place] [address] 09227- 6182 Mar, Gastroesophageal reflux disease, esophagitis presence not specified K21.9 and Low back pain M54.5 [facility] [id number] [place] [address] 46796 -2511 20 Feb, 2018 Chronic maxillary sinusitis J32.0 [facility] [place] [address] [address] 14 Feb, 2018 Low back pain M54.5 [facility] [place] [id number] [place] [address] 18021- 9984 Feb, Low back pain M54.5 [facility] [place] [address] [address]- 8330 Feb, Low back pain M54.5 [facility] [place] [address] 0[address]30- 8821 January, [facility] [place] [address] 94085- 3453 January, Sinusitis chronic, frontal J32.1 [facility] [place] [address] 78941- 4718 January, Lumbago with sciatica, right side M54.41 ; Cervical disc disease M50.90 ; Hypertension I10 and Gastroesophageal reflux disease, esophagitis presence not specified K21.9 [facility] [place] [address] 6[address]99- 9038 Dec, Low back pain M54.5 [facility] [place] [address] 07623- 8556 Dec, Low back pain M54.5 [facility] [place] [address] 35358- 7587 Nov, [facility] [id number] [place] [address] 40192 -8403 Nov, Right maxillary sinusitis J32.0 [facility] [place] [id number] [place] [address] 89504- 6438 Nov, Low back pain M54.5 [facility] [id number] [place] [address] 65190 -3882 Oct, Sinusitis chronic, frontal J32.1 [facility] [place] [id number] [place] [address] 80028- 2690 Oct, Neck pain M54.2 [facility] [place] [address] [place] [address]- 6080 Sep, Low back pain M54.5 [facility] [place] [address] 25411- 4045 Sep, Neck pain M54.2 [facility] [place] [address] 03675- 6544 Sep, Lumbago with sciatica, right side M54.41 ; Hypertension I10 ; Bronchitis J40 and Anxiety disorder, unspecified F41.9 [facility] [place] [address] 59605- 2810 Aug, Neck pain M54.2 and Low back pain M54.5 [facility] [place] [address] 83826- 3862 16 Jul, 2017 Neck pain M54.2 and Low back pain M54.5 [facility] [place] [address] 54723- 0930 06 Jul, 2017 Neck pain M54.2 [facility] [place] [address] 96397- 5371 Jun, Low back pain M54.5 and Neck pain M54.2 [facility] [place] [id number] [place] [address] 89548- 8292 22 May, 2017 Low back pain M54.5 and Neck pain M54.2 [facility] [place] [address] 65893- 8627 21 May, 2017 [facility] [address] 05759 -7359 14 May, 2017 Bronchitis J40 [facility] [place] [address] 97438- 1274 Apr, Hyperglycemia R73.9 [facility] [place] [id number] [place] [address] 65707- 5074 Apr, Hyperglycemia R73.9 [facility] [place] [address] [place] [address]- 9879 Apr, Gastroesophageal reflux disease, esophagitis presence not specified K21.9 ; Mixed hyperlipidemia E78.2 ; Neck pain M54.2 and PVCs ( premature ventricular contractions) I49.3 [facility] [place] [id number] [place] [address] 73817- 2942 Mar, Low back pain M54.5 [facility] [place] [address] 86016- 2756 Feb, Low back pain M54.5 and Gastroesophageal reflux disease, esophagitis presence not specified K21.9 [place] [address] 41277- 4202 January, Dyspnea on exertion R06.09 [facility] [place] [address] 23927- 4413 January, Hypertension I10 [facility] [place] [address] 24958- 0036 January, [facility] [place] [id number] [place] [address] 98038- 9051 January, Low back pain M54.5 [facility] [place] [id number] [place] [address] 82689- 1665 January, Low back pain M54.5 [facility] [place] [id number] [place] [address] 22905- 9198 January, Gastroesophageal reflux disease, esophagitis presence not specified K21.9 ; Lumbago with sciatica, right side M54.41 and Dyspnea on exertion R06.09 [facility] [place] [id number] [place] [address] 08986- 2764 Nov, [facility] [place] [id number] [place] [address] 19003- 6870 Nov, [facility] [place] [id number] [place] [address] 58905- 3785 Nov, Gastroesophageal reflux disease, esophagitis presence not specified K21.9 and Bronchitis J40 [facility] [place] [address] 69674- 1399 15 Oct, 2016 Low back pain M54.5 and Anxiety disorder, unspecified F41.9 [facility] [place] [address] 98412- 6933 10 Oct, 2016 Bronchitis J40 ; Hypertension I10 ; Sciatica M54.30 and Paresthesias R20.2 [facility] [address] [id number] Sep, Dental examination Z01.20 [facility] [address] [id number] Sep, Dental examination Z01.20 and Dental caries K02.9 [facility] [place] [address] 52022- 5961 Aug, [facility] [place] [address] 48577- 1795 Jul, Low back pain M54.5 and Anxiety disorder, unspecified F41.9 [facility] [place] [address] 76184- 3206 Jul, [facility] [place] [address] 18819- 2754 Jun, Lumbago with sciatica, right side M54.41 ; Cervical disc disease M50.90 and Gastroesophageal reflux disease, esophagitis presence not specified K21.9 [facility] [place] [id number] [place] [address] 54771- 3593 Jun, [facility] [place] [address] 11092- 4814 Jun, [facility] [place] [id number] [place] [address] 23870- 8677 Jun, [facility] [place] [address] 08624- 8131 Jun, [facility] [place] [id number] [place] [address]- 0531 Jun, [facility] [place] [id number] [place] [address] 39468- 5753 23 May, 2016 [facility] [place] [id number] [place] [address], [place] [address]- 3735 May, [facility] [place] [id number] [place] [address] 69209- 5151 May, [facility] [place] [id number] [place] [address], [place] [address]- 7407 Apr, [facility] [place] [id number] [place] [address] 97396- 0462 Apr, [facility] [place] [id number] [place] [address] 48483- 1257 Apr, [facility] [place] [id number] [place] [address] 95545- 3811 Apr, Cervical disc disease M50.90 [facility] [place] [id number] [place] [address] 57486- 3850 Apr, [facility] [place] [id number] [place] [address] 86812- 5861 Apr, Neck pain M54.2 ; Hypertension I10 and Reactive depression F32.9 [facility] [place] [id number] [place] [address] 01603- 3746 Mar, [facility] [place] [id number] [place] [address] 83322- 3426 Mar, [facility] [place] [id number] [place] [address] 47364- 4098 Mar, [facility] [place] [id number] [place] [address] 43696- 6499 Feb, Sciatica M54.30 [facility] [place] [address] 59474- 9458 13 Feb, 2016 Paresthesias R20.2 ; Sciatica M54.30 and Reactive depression F32.9 [facility] [place] [address] [address]6- 3454 06 Feb, 2016 [facility] [place] [address] 75138- 5820 January, [facility] [place] [address] 22908- 4277 January, Hyperlipemia, mixed E78.2 ; Other abnormalities of heart beat R00.8 and Anxiety F41.9 [place] [address] 11181- 9111 January, [place] [address] 02053- 3379 January, Low back pain M54.5 [place] [address] 06737- 6284 January, Anxiety disorder, unspecified F41.9 [facility] [place] [address] 10919- 0821 18 Dec, 2015 Ventricular bigeminy I49.9 [facility] [place] [address] 61144- 0621 Dec, [facility] [place] [address] 20173- 3919 Dec, Low back pain M54.5 [facility] [place] [address] 71149- 7809 Dec, Sciatica M54.30 [facility] [place] [address] 61272- 0682 Nov, Major depressive disorder, single episode, unspecified F32.9 [facility] [place] [address] 87711- 2020 14 Nov, 2015 Sciatica M54.30 [facility] [place] [id number] [place] [address] 05657- 5545 14 Nov, 2015 [facility] [place] [address] 51807- 8947 Nov, [facility] [place] [id number] [place] [address] 01920- 5316 Nov, Anxiety disorder, unspecified F41.9 [facility] [place] [address] 19070- 9393 Nov, [facility] [place] [address] 44901- 3065 Nov, Depressed F32.9 and Anxiety F41.9 [facility] [place] [id number] [place] [address] 48360- 8181 Nov, Lumbago 724.2 ; Sciatica M54.30 and PVCs (premature ventricular contractions) I49.3 [facility] [place] [id number] [place] [address] 33912- 8433 Oct, [facility] [place] [address] 87845- 9178 Oct, [facility] [place] [id number] [place] [address] 43652- 9162 Oct, Sciatica M54.30 and Hypertension I10 [facility] [place] [id number] [place] [address] 14494- 7548 Oct, [facility] [place] [id number] [place] [address] 65354- 7710 Oct, [facility] [place] [address] 63162- 2226 Oct, [facility] [place] [id number] [place] [address] 84177- 2200 Sep, [facility] [place] [address] 77962- 6624 Sep, [facility] [place] [id number] [place] [address]- 2697 Sep, [facility] [place] [id number] [address]- 0444 Sep, Ventricular arrhythmia I49.9 [facility] [place] [id number] [place] [address] 57086- 3292 Sep, Ventricular bigeminy I49.9 and Hypertension I10 [facility] [place] [id number] [place] [address] 56607- 8714 Sep, Lumbago M54.5 and Ventricular bigeminy I49.9 [facility] [place] [id number] [place] [address], [place] [address]- 4725 Sep, [facility] [place] [id number] [place] [address] 03313- 6120 Aug, [facility] [place] [id number] [address]- 7949 Aug, [facility] [place] [address] [place] [address], [place] [address]- 4796 Aug, [facility] [place] [id number] [address]- 5720 Aug, [facility] [place] [id number] [place] [address]- 3713 Aug, [facility] [place] [id number] [address]- 0735 Jul, [facility] [place] [id number] [address]- 5796 29 Jun, 2015 [facility] [place] [address] [address]- 9218 14 May, 2015 [facility] [place] [id number] [address]- 7624 May, [facility] [place] [id number] [address]- 7095 May, Lumbago 724.2 and Depressive disorder, not elsewhere classified 311 [facility] [place] [id number] [address]- 9218 Apr, UTI (urinary tract infection) 599.0 [facility] [place] [id number] [place] [address] 078987- 9768 Apr, UTI (urinary tract infection) 599.0 and Depression 311 [facility] [place] [id number] [address]- 0805 Mar, [facility] [place] [id number], [place] [address]- 1823 Mar, [facility] [place] [id number], [place] [address]- 5815 Mar, [facility] [place] [id number] [address]- 0023 Mar, Unspecified essential hypertension 401.9 ; Lumbago 724.2 and Anxiety 300.00 [facility] [place] [id number] [address]- 6826 Mar, [facility] [place] [id number], [place] [address]- 0834 Feb, [facility] [place] [id number], [place] [address]- 2770 Feb, [facility] [place] [id number] [address]- 4603 January, [facility] [place] [id number]- 1686 Dec, [facility] [place] [id number] [address]- 2414 Dec, [facility] [place] [id number] [address]- 8681 Oct, [facility] [place] [facility] [address] [id number] [place] [address]- 9887 10 Oct, 2014 [facility] [place] [facility] [address] [id number] [place] [address]- 1267 Oct, [facility] [place] [facility] [address] [id number] [place] [address]- 1408 Oct, [facility] [place] [facility] [address] [id number] [place] [address]- 8699 Sep, [facility] [place] [facility] [address] [id number] [place] [address]- 4533 Sep, [facility] [place] [facility] [address] [id number] [place] [address]- 9632 Sep, [facility] [place] [facility] [address] [id number] [place] [address] Sep, [facility] [place] [facility] [address] [id number] [place] [address] Aug, [facility] [place] [facility] [address] [id number] [place] [address] Aug, [facility] [place] [facility] [address] [id number] [place] [address] Jul, [facility] [place] [facility] [address] [id number], [place] [address] Jul, [facility] [place] [facility] [address] [id number], [place] [address] Jun, [facility] [place] [facility] [address] [id number] [place] [address] Jun, [facility] [place] [facility] [address] [id number] [place] [address] Jun, [facility] [place] [facility] [address] [id number] [place] [address] Jun, [facility] [place] [facility] [address] [id number] [place] [address] Jun, [facility] [place] [facility] [address] [id number] [place] [address] Jun, [facility] [place] [facility] [address] [id number] [place] [address] May, [facility] [place] [facility] [address] [id number] [place] [address] May, [facility] [place] [facility] [address] [id number] [place] [address] Apr, [facility] [place] [facility] [address] [id number] [place] [address]- [address] Apr, [facility] [place] [facility] [address] [id number] [place] [address] Apr, [facility] [place] [facility] [address] [id number] [place] [address] Apr, [facility] [place] [facility] [address] [id number] [place] [address] Mar, [facility] [place] [facility] [address] [id number] [place] [address]- [address] Mar, [facility] [place] [facility] [address] [id number] [place] [address] Mar, [facility] [place] [facility] [address] [id number] [place] [address] Mar, [facility] [place] [facility] [address] [id number] [place] [address] Mar, [facility] [place] [facility] [address] [id number] [place] [address] Mar, [facility] [place] [facility] [address] [id number] [place] [address] Mar, [facility] [place] [facility] [address] [id number] [place] [address] Mar, [facility] [place] [facility] [address] [id number] [place] [address] Feb, [facility] [place] [facility] [address] [id number] [place] [address] Feb, [facility] [place] [facility] [address] [id number] [place] [address] January, [facility] [place] [facility] [address] [id number] [place] [address] January, [facility] [place] [facility] [address] [id number] [place] [address] January, [facility] [place] [facility] [address] [id number] [place] [address] January, [facility] [place] [facility] [address] [id number] [place] [address] Dec, [facility] [place] [facility] [address] [id number] [place] [address] Dec, [facility] [place] [facility] [address] [id number] [place] [address] Dec, [facility] [place] [facility] [address] [id number] [place] [address] Dec, [facility] [place] [facility] [address] [id number] [place] [address] Nov, [facility] [place] [facility] [address] [id number] [place] [address] Nov, [facility] [place] [facility] [address] [id number] [place] [address] Sep, [facility] [place] [facility] [address] [id number] [place] [address] Sep, [facility] [place] [facility] [address] [id number] [place] [address] Sep, [facility] [place] [facility] [address] [id number], [place] [address] Sep, [facility] [address] [id number] [place] [address] Sep, [facility] [place] [facility] [address] [id number] [place] [address] Sep, [facility] [place] [facility] [address] [id number] [place] [address] Aug, [facility] [place] [facility] [address] [id number] [place] [address] Aug, [facility] [place] [facility] [address] [id number] [place] [address] Aug, [facility] [place] [facility] [address] [id number] [place] [address] Aug, [facility] [place] [facility] [address] [id number] [place] [address] Jul, [facility] [place] [facility] [address] [id number] [place] [address] Jul, [facility] [place] [facility] [address] [id number] [place] [address] Jun, [facility] [place] [facility] [address] [id number] [place] [address] Jun, [facility] [place] [facility] [address] [id number], [place] [address] Mar, [facility] [place] [facility] [address] [id number] [place] [address] January, [facility] [place] [facility] [address] [id number] [place] [address] Dec, [facility] [place] [facility] [address] [id number] [place] [address] Dec, [facility] [place] [facility] [address] [id number] [place] [address] Nov, [facility] [place] [facility] [address] [id number] [place] [address] Nov, [facility] [place] [address] [id number], [place] [address] Oct, [facility] [place] [address] [id number], [place] [address] January, [facility] [place] [address] [id number], [place] [address] Dec, [facility] [place] [address] [id number], [place] [address] Sep, IMMUNIZATIONS No Known Immunizations SOCIAL HISTORY Never Assessed REASON FOR VISIT Diazepam 01/01 PLAN OF CARE VITAL SIGNS MEDICATIONS Medication [...]
--- OUTSIDE RECORDS SUMMARY | 2018-08-12 07:16 | XMS REPORT ---
Author Author RONI RAMEY [facility] [address] Address [address] [place] [address] Care Team Providers Care Traffic Monitor Specialist Name Role Phone RONI RAMEY Unavailable PROBLEMS Type Condition ICD9-CM Code FCD71-AD Code Onset Dates Condition Status SNOMED Code Problem Neck pain M54.2 Active 79857807 Problem Gastroesophageal reflux disease, esophagitis presence not specified K21.9 Active 381947340 Problem Cervical disc disease M50.90 Active 071765499 Problem Chronic maxillary sinusitis J32.0 Active 12622885 Problem Right maxillary sinusitis J32.0 Active 73945814 Problem Mixed hyperlipidemia E78.2 Active 927441599 Problem Anxiety disorder, unspecified F41.9 Active 118733019 Problem Sinusitis chronic, frontal J32.1 Active 55885654 Problem Prediabetes R73.03 Active 931007105 Problem PVCs (premature ventricular contractions) I49.3 Active 96498250 Problem Reactive depression F32.9 Active 29732673 Problem Hypertension I10 Active 09250096 Problem Lumbago with sciatica, right side M54.41 Active 759556443 Problem Sciatica M54.30 Active 07765776 Problem Other chronic pain G89.29 Active 30388104 ALLERGIES No Known Allergies ENCOUNTERS Encounter Location Date Diagnosis [facility] [address], [place] [address] Mar, Gastroesophageal reflux disease, esophagitis presence not specified K21.9 and Low back pain M54.5 [facility] [address], [place] [address] 20 Feb, 2018 Chronic maxillary sinusitis J32.0 [facility] [address], [place] [address] 14 Feb, 2018 Low back pain M54.5 [facility] [id number] [place] [address] 50014- 1811 Feb, Low back pain M54.5 [facility] [address] [address]- 9077 Feb, Low back pain M54.5 [facility] [id number] [place] [address] 76276- 1818 January, [facility] [address] [address]38- 4655 January, Sinusitis chronic, frontal J32.1 [facility] [address] [address]37- 7972 January, Lumbago with sciatica, right side M54.41 ; Cervical disc disease M50.90 ; Hypertension I10 and Gastroesophageal reflux disease, esophagitis presence not specified K21.9 [facility] [address] [address]- [address] Dec, Low back pain M54.5 [facility] [id number] [place] [address] 18096- 1844 Dec, Low back pain M54.5 [facility] [address] 50008- 4782 Nov, [facility] [id number] [place] [address] 31435 -5129 Nov, Right maxillary sinusitis J32.0 [facility] [id number] [place] [address] 90254- 6764 Nov, Low back pain M54.5 [facility] [id number] [place] [address] 15844 -5564 Oct, Sinusitis chronic, frontal J32.1 [facility] [id number] [place] [address] 06633- 1555 Oct, Neck pain M54.2 [facility] [address] 58054- 8522 Sep, Low back pain M54.5 [facility] [address] 99861- 0967 Sep, Neck pain M54.2 [facility] [id number] [place] [address] 49502- 9323 Sep, Lumbago with sciatica, right side M54.41 ; Hypertension I10 ; Bronchitis J40 and Anxiety disorder, unspecified F41.9 [facility] [id number] [place] [address] 99790- 1178 Aug, Neck pain M54.2 and Low back pain M54.5 [facility] [address] 53575- 1854 16 Jul, 2017 Neck pain M54.2 and Low back pain M54.5 [facility] [address] 72055- 7486 06 Jul, 2017 Neck pain M54.2 [facility] [address] 04000- 9608 Jun, Low back pain M54.5 and Neck pain M54.2 [facility] [id number] [place] [address] 90168- 2914 22 May, 2017 Low back pain M54.5 and Neck pain M54.2 [facility] [address] 95496- 6603 21 May, 2017 [facility] [id number] [place] [address] 67405 -9079 14 May, 2017 Bronchitis J40 [facility] [address] 03296- 8082 Apr, Hyperglycemia R73.9 [facility] [id number] [place] [address] 34267- 2197 Apr, Hyperglycemia R73.9 [facility] [address] [place] [address]- 9455 Apr, Gastroesophageal reflux disease, esophagitis presence not specified K21.9 ; Mixed hyperlipidemia E78.2 ; Neck pain M54.2 and PVCs ( premature ventricular contractions) I49.3 [facility] [address] 23415- 1831 Mar, Low back pain M54.5 [facility] [address] 56664- 2976 Feb, Low back pain M54.5 and Gastroesophageal reflux disease, esophagitis presence not specified K21.9 [place] [address] 25662- 4086 January, Dyspnea on exertion R06.09 [facility] [address] 82387- 2347 January, Hypertension I10 [facility] [address] 35080- 1171 January, [facility] [address] 93759- 6551 January, Low back pain M54.5 [facility] [address] 88690- 4194 January, Low back pain M54.5 [facility] [id number] [place] [address] 40304- 3641 January, Gastroesophageal reflux disease, esophagitis presence not specified K21.9 ; Lumbago with sciatica, right side M54.41 and Dyspnea on exertion R06.09 [facility] [id number] [place] [address] 03915- 3528 Nov, [facility] [address] 48251- 7003 Nov, [facility] [id number] [place] [address] 54767- 2002 Nov, Gastroesophageal reflux disease, esophagitis presence not specified K21.9 and Bronchitis J40 [facility] [id number] [place] [address] 39524- 2457 15 Oct, 2016 Low back pain M54.5 and Anxiety disorder, unspecified F41.9 [facility] [address] 47913- 9053 10 Oct, 2016 Bronchitis J40 ; Hypertension I10 ; Sciatica M54.30 and Paresthesias R20.2 [facility] [address] [id number] Sep, Dental examination Z01.20 [facility] [address] [id number] Sep, Dental examination Z01.20 and Dental caries K02.9 [facility] [address] 85978- 1346 Aug, [facility] [address] 21508- 4885 Jul, Low back pain M54.5 and Anxiety disorder, unspecified F41.9 [facility] [address] 89517- 9869 Jul, [facility] [address] 38732- 0251 Jun, Lumbago with sciatica, right side M54.41 ; Cervical disc disease M50.90 and Gastroesophageal reflux disease, esophagitis presence not specified K21.9 [facility] [id number] [place] [address] 82668- 3502 Jun, [facility] [address] 62399- 8520 Jun, [facility] [id number] [place] [address] 44962- 0568 Jun, [facility] [address] 95485- 5824 Jun, [facility] [address] [address]- 7905 Jun, [facility] [id number] [place] [address], [place] [address]- 3676 23 May, 2016 [facility] [id number] [place] [address], [place] [address]- 3048 May, [facility] [id number] [place] [address] 25293- 0659 May, [facility] [id number] [place] [address], [place] [address]- 2062 Apr, [facility] [id number] [place] [address] 79850- 7209 Apr, [facility] [id number] [place] [address] 71675- 0449 Apr, [facility] [id number] [place] [address] 16062- 3144 Apr, Cervical disc disease M50.90 [facility] [id number] [place] [address] 84992- 0857 Apr, [facility] [id number] [place] [address] 85592- 0203 Apr, Neck pain M54.2 ; Hypertension I10 and Reactive depression F32.9 [facility] [id number] [place] [address] 83205- 5523 Mar, [facility] [id number] [place] [address] 44575- 0475 Mar, [facility] [id number] [place] [address] 51585- 2105 Mar, [facility] [id number] [place] [address] 13541- 7413 Feb, Sciatica M54.30 [facility] [address] [address]- 6353 Feb, Paresthesias R20.2 ; Sciatica M54.30 and Reactive depression F32.9 [facility] [address] 87045- 9449 Feb, [facility] [address] 82514- 2026 January, [facility] [address] 04639- 6234 January, Hyperlipemia, mixed E78.2 ; Other abnormalities of heart beat R00.8 and Anxiety F41.9 [place] [address] 43380- 6652 January, [place] [address] 86241- 5512 January, Low back pain M54.5 [place] [address] 00982- 8498 January, Anxiety disorder, unspecified F41.9 [place] [address] 71500- 4711 18 Dec, 2015 Ventricular bigeminy I49.9 [place] [address] 34287- 4801 Dec, [facility] [address] 30322- 8959 Dec, Low back pain M54.5 [facility] [address] 26808- 6437 Dec, Sciatica M54.30 [facility] [address] 74956- 7794 Nov, Major depressive disorder, single episode, unspecified F32.9 [facility] [address] 61509- 4346 14 Nov, 2015 Sciatica M54.30 [facility] [id number] [place] [address] 59507- 0727 14 Nov, 2015 [facility] [address] 77584- 4790 Nov, [facility] [id number] [place] [address] 30116- 3803 Nov, Anxiety disorder, unspecified F41.9 [facility] [address] 69626- 3211 Nov, [facility] [id number] [place] [address] 98523- 0447 Nov, Depressed F32.9 and Anxiety F41.9 [facility] [id number] [place] [address] 27526- 7826 Nov, Lumbago 724.2 ; Sciatica M54.30 and PVCs (premature ventricular contractions) I49.3 [facility] [id number] [place] [address] 25918- 9071 Oct, [facility] [id number] [place] [address] 92633- 9328 Oct, [facility] [id number] [place] [address] 36261- 4195 Oct, Sciatica M54.30 and Hypertension I10 [facility] [id number] [place] [address] 70530- 2535 Oct, [facility] [id number] [place] [address] 63453- 7796 Oct, [facility] [id number] [place] [address] 10689- 9989 Oct, [facility] [id number] [place] [address] 49690- 2756 Sep, [facility] [address] 15249- 6223 Sep, [facility] [id number] [address]- 8524 Sep, [facility] [address], [place] [address]- 9887 Sep, Ventricular arrhythmia I49.9 [facility] [address] [place] [address] 71214- 1608 Sep, Ventricular bigeminy I49.9 and Hypertension I10 [facility] [address] [place] [address] 27387- 2695 Sep, Lumbago M54.5 and Ventricular bigeminy I49.9 [facility] [id number] [place] [address], [place] [address]- 2826 Sep, [facility] [id number] [place] [address] 59135- 8873 Aug, [facility] [address], [place] [address]- 3241 Aug, [facility] [id number] [place] [address], [place] [address]- 5074 Aug, [facility] [address], [place] [address]- 9635 Aug, [facility] [id number] [address]- 0287 Aug, [facility] [address], [place] [address]- 1467 Jul, [facility] [address], [place] [address]- 2720 29 Jun, 2015 [facility] [address], [place] [address]- 2077 14 May, 2015 [facility] [address], [place] [address]- 5869 May, [facility] [address], [place] [address]- 7071 May, Lumbago 724.2 and Depressive disorder, not elsewhere classified 311 [facility] [address], [place] [address]- 3474 Apr, UTI (urinary tract infection) 599.0 [facility] [address] [place] [address] 646118- 1676 Apr, UTI (urinary tract infection) 599.0 and Depression 311 [facility] [address], [place] [address]- 6106 Mar, [facility] [id number] [place] [address] 61614- 2369 Mar, [facility] [address], [place] [address]- 1440 Mar, [facility] [id number] [place] [address] 29762- 4038 Mar, Unspecified essential hypertension 401.9 ; Lumbago 724.2 and Anxiety 300.00 [facility] [address], [place] [address]- 1174 Mar, [facility] [address], [place] [address]- 2846 Feb, [facility] [address], [place] [address]- 2832 Feb, [facility] [address], [place] [address]- 8837 January, [facility] [address], [place] [address]- 8442 Dec, [facility] [address], [place] [address]- 1206 Dec, [facility] [address], [place] [address]- 2839 Oct, [facility] [place] [facility] [address] [id number] [place] [address]- 2392 10 Oct, 2014 [facility] [place] [facility] [address] [id number] [place] [address]- 3822 Oct, [facility] [place] [facility] [address] [id number] [place] [address]65 Oct, [facility] [place] [facility] [address] [id number] [place] [address]- 6310 Sep, [facility] [place] [facility] [address] [id number] [place] [address]- 1395 Sep, [facility] [place] [facility] [address] [id number] [place] [address]- 3651 Sep, [facility] [place] [facility] [address] [id number] [place] [address]- 9553 Sep, [facility] [place] [facility] [address] [id number] [place] [address]- 1966 Aug, [facility] [place] [facility] [address] [id number] [place] [address]- 1736 Aug, [facility] [place] [facility] [address] [id number] [place] [address]- 6350 Jul, [facility] [place] [facility] [address] [id number] [address]- 6410 Jul, [facility] [place] [facility] [address] [id number], [place] [address]- 4613 Jun, [facility] [place] [facility] [address] [id number] [place] [address]- 5138 Jun, [facility] [place] [facility] [address] [id number] [place] [address]- 5949 Jun, [facility] [place] [facility] [address] [id number] [place] [address]- 4509 Jun, [facility] [place] [facility] [address] [id number] [place] [address]- 4100 Jun, [facility] [place] [facility] [address] [id number] [place] [address]- 6961 Jun, [facility] [place] [facility] [address] [id number] [place] [address]- 9587 May, [facility] [place] [facility] [address] [id number] [place] [address]- 5910 May, [facility] [place] [facility] [address] [id number] [place] [address]- 4252 Apr, [facility] [place] [facility] [address] [id number] [place] [address]- 7292 Apr, [facility] [place] [facility] [address] [id number] [place] [address]- 0588 Apr, [facility] [place] [facility] [address] [id number] [place] [address]- 6815 Apr, [facility] [place] [facility] [address] [id number] [place] [address]- 4560 Mar, [facility] [place] [facility] [address] [id number] [place] [address]- 6326 Mar, [facility] [place] [facility] [address] [id number] [place] [address]- 1137 Mar, [facility] [place] [facility] [address] [id number] [place] [address]- 8395 Mar, [facility] [place] [facility] [address] [id number] [place] [address]- 4451 Mar, [facility] [place] [facility] [address] [id number] [place] [address]- 5605 Mar, [facility] [place] [facility] [address] [id number] [place] [address]- 3645 Mar, [facility] [place] [facility] [address] [id number] [place] [address]- 7596 Mar, [facility] [place] [facility] [address] [id number] [place] [address]- 9593 Feb, [facility] [place] [facility] [address] [id number] [place] [address]- 5279 Feb, [facility] [place] [facility] [address] [id number] [place] [address]- 3802 January, [facility] [place] [facility] [address] [id number] [place] [address]- 8260 January, [facility] [place] [facility] [address] [id number] [place] [address]- 1702 January, [facility] [place] [facility] [address] [id number] [place] [address]- 8883 January, [facility] [place] [facility] [address] [id number] [place] [address]- 6235 Dec, [facility] [place] [facility] [address] [id number] [place] [address]- 0235 Dec, [facility] [place] [facility] [address] [id number] [place] [address]- 9499 Dec, [facility] [place] [facility] [address] [id number] [place] [address]- 3086 Dec, [facility] [place] [facility] [address] [id number] [place] [address]- 5090 Nov, [facility] [place] [facility] [address] [id number] [place] [address]- 4440 Nov, [facility] [place] [facility] [address] [id number] [place] [address]- 1975 Sep, [facility] [place] [facility] [address] [id number] [place] [address]- 1248 Sep, [facility] [place] [facility] [address] [id number] [place] [address]- 9665 Sep, [facility] [place] [facility] [address] [id number] [place] [address]- 4490 Sep, [facility] [place] [facility] [address] [id number] [place] [address]- 9000 Sep, [facility] [place] [facility] [address] [id number] [place] 2870 Sep, [facility] [place] [facility] [address] [id number] [place] [address]- 9607 Aug, [facility] [place] [facility] [address] [id number] [place] [address] Aug, [facility] [place] [facility] [address] [id number] [place] [address] Aug, [facility] [place] [facility] [address] [id number] [place] [address] Aug, [facility] [place] [facility] [address] [id number] [place] [address] Jul, [facility] [place] [facility] [address] [id number] [place] [address] Jul, [facility] [place] [facility] [address] [id number] [place] [address] Jun, [facility] [place] [facility] [address] [id number] [place] [address] Jun, [facility] [place] [facility] [address] [id number] [place] [address] Mar, [facility] [place] [facility] [address] [id number] [place] [address] January, [facility] [place] [facility] [address] [id number] [place] [address] Dec, [facility] [place] [facility] [address] [id number] [place] Dec, [facility] [place] [facility] [address] [id number] [place] [address] Nov, [facility] [place] [facility] [address] [id number][place] [id number] Nov, [place] [address] [address] [facility] [place] [id number], [place] [address] Oct, [facility] [address] [facility] [place] [id number], [place] [address] January, [place] [address] [address] [facility] [place] [id number], [place] [address] Dec, [place] [address] [address] [facility] [place] [id number], [place] [address] Sep, IMMUNIZATIONS No Known Immunizations SOCIAL HISTORY Never Assessed REASON FOR VISIT sinus pressure in ears, teeth, roof of mouth started a little over 1 week ago [employer] PLAN OF CARE Activity Details Follow Up prn Reason: VITAL SIGNS Height 62 in 2017-11-27 Weight 167.0 lbs 2017-11-27 Temperature 99.5 degrees Fahrenheit 2017-11-27 Heart Rate 80 bpm 2017-11-27 Respiratory Rate 20 2017-11-27 BMI 30.54 kg/m2 2017-11-27 Blood pressure systolic 112 mmHg 2017-11-27 Blood pressure diastolic 80 mmHg 2017-11-27 MEDICATIONS Medication Instructions Dosage Frequency Start Date End Date Duration Status Lipitor 10 MG Orally Once a day 1 tablet 24h Active Augmentin 875-125 MG Orally every 12 hrs 1 tablet 12h 10 day(s) Active Tramadol HCl 50MG Orally, each fill must last 30 days every 6 hours 1 tablet 6h 28 days Active Flonase 50 MCG/ACT Nasally twice a day 1 spray in each nostril 12h Oct, 07 days Active C-PAP Machine Active Metoprolol Succinate ER 50MG TAKE ONE TABLET BY MOUTH ONCE DAILY Active ProAir HFA 108 (90 Base) MCG/ACT Inhalation every 4 hrs 2 puffs as needed 4h May, 5 days Not-Taking Cyclobenzaprine HCl 10MG Orally Three times a day 1 tablet 8h Active Zoloft 50MG Orally Once a day 1 tablet 24h Active Gabapentin 600MG TAKE ONE TABLET BY MOUTH THREE TIMES DAILY Active Protonix 40 mg Orally twice a day 1 tablet 12h Nov, 30 day(s) Active Diazepam 5MG Orally, each fill must [...]
--- OUTSIDE RECORDS SUMMARY | 2018-08-12 07:16 | XMS REPORT ---
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 Name Role Phone JOHANNY KINNEY Unavailable PROBLEMS Type Condition ICD9-CM Code GCR36-TZ Code Onset Dates Condition Status SNOMED Code Problem Neck pain M54.2 Active 79358761 Problem Gastroesophageal reflux disease, esophagitis presence not specified K21.9 Active 538867928 Problem Cervical disc disease M50.90 Active 026386448 Problem Chronic maxillary sinusitis J32.0 Active 31414943 Problem Right maxillary sinusitis J32.0 Active 27963214 Problem Mixed hyperlipidemia E78.2 Active 808511133 Problem Anxiety disorder, unspecified F41.9 Active 672926036 Problem Sinusitis chronic, frontal J32.1 Active 65703754 Problem Prediabetes R73.03 Active 143327179 Problem PVCs (premature ventricular contractions) I49.3 Active 56025840 Problem Reactive depression F32.9 Active 08619871 Problem Hypertension I10 Active 98270857 Problem Lumbago with sciatica, right side M54.41 Active 843614592 Problem Sciatica M54.30 Active 77909901 Problem Other chronic pain G89.29 Active [id number] ALLERGIES No Information ENCOUNTERS Encounter Location Date Diagnosis [facility] [id number] [place] [address] 46631- 2857 Mar, Gastroesophageal reflux disease, esophagitis presence not specified K21.9 and Low back pain M54.5 [facility] [id number] [place] [address] 28564 -9086 20 Feb, 2018 Chronic maxillary sinusitis J32.0 [facility] [address] [address] 5408 14 Feb, 2018 Low back pain M54.5 [facility] [id number] [place] [address] 66389- 0725 Feb, Low back pain M54.5 [facility] [address] 42871- 2223 Feb, Low back pain M54.5 [facility] [address] 96388- 5142 January, [facility] [address] 01794- 3851 January, Sinusitis chronic, frontal J32.1 [facility] [address] 43646- 8392 January, Lumbago with sciatica, right side M54.41 ; Cervical disc disease M50.90 ; Hypertension I10 and Gastroesophageal reflux disease, esophagitis presence not specified K21.9 [facility] [address] 38742- 5598 Dec, Low back pain M54.5 [facility] [address] 09331- 7842 Dec, Low back pain M54.5 [facility] [address] 99573- 6433 Nov, [facility] [id number] [place] [address] 04553 -7938 Nov, Right maxillary sinusitis J32.0 [facility] [id number] [place] [address] 83571- 0654 Nov, Low back pain M54.5 [facility] [id number] [place] [address] 87867 -3475 Oct, Sinusitis chronic, frontal J32.1 [facility] [id number] [place] [address] 31607- 2802 Oct, Neck pain M54.2 [facility] [address] [place] [address]- 1499 Sep, Low back pain M54.5 [facility] [address] 75700- 2118 Sep, Neck pain M54.2 [facility] [address] 25560- 7535 Sep, Lumbago with sciatica, right side M54.41 ; Hypertension I10 ; Bronchitis J40 and Anxiety disorder, unspecified F41.9 [facility] [address] 44828- 6735 Aug, Neck pain M54.2 and Low back pain M54.5 [facility] [address] 46204- 0414 16 Jul, 2017 Neck pain M54.2 and Low back pain M54.5 [facility] [address] 25209- 3706 06 Jul, 2017 Neck pain M54.2 [facility] [address] 66503- 4836 Jun, Low back pain M54.5 and Neck pain M54.2 [facility] [id number] [place] [address] 45941- 0369 22 May, 2017 Low back pain M54.5 and Neck pain M54.2 [facility] [address] 92981- 7556 21 May, 2017 [facility] [address] 08625 -0733 14 May, 2017 Bronchitis J40 [facility] [address] 84680- 8131 Apr, Hyperglycemia R73.9 [facility] [id number] [place] [address] 63333- 0592 Apr, Hyperglycemia R73.9 [facility] [address] [place] [address]- 9452 Apr, Gastroesophageal reflux disease, esophagitis presence not specified K21.9 ; Mixed hyperlipidemia E78.2 ; Neck pain M54.2 and PVCs ( premature ventricular contractions) I49.3 [facility] [id number] [place] [address] 15258- 1491 Mar, Low back pain M54.5 [facility] [address] 90875- 8840 Feb, Low back pain M54.5 and Gastroesophageal reflux disease, esophagitis presence not specified K21.9 [place] [address] 90768- 6056 January, Dyspnea on exertion R06.09 [facility] [address] 32203- 7784 January, Hypertension I10 [facility] [address] 73410- 8533 January, [facility] [id number] [place] [address] 71812- 5924 January, Low back pain M54.5 [facility] [id number] [place] [address] 64970- 3876 January, Low back pain M54.5 [facility] [id number] [place] [address] 94994- 5339 January, Gastroesophageal reflux disease, esophagitis presence not specified K21.9 ; Lumbago with sciatica, right side M54.41 and Dyspnea on exertion R06.09 [facility] [id number] [place] [address] 06689- 5620 Nov, [facility] [id number] [place] [address] 50564- 5204 Nov, [facility] [id number] [place] [address] 84505- 5292 Nov, Gastroesophageal reflux disease, esophagitis presence not specified K21.9 and Bronchitis J40 [facility] [address] 24223- 1707 15 Oct, 2016 Low back pain M54.5 and Anxiety disorder, unspecified F41.9 [facility] [address] 38603- 6282 10 Oct, 2016 Bronchitis J40 ; Hypertension I10 ; Sciatica M54.30 and Paresthesias R20.2 [facility] [address] [id number] Sep, Dental examination Z01.20 [facility] [address] [id number] Sep, Dental examination Z01.20 and Dental caries K02.9 [facility] [address] 75759- 0106 Aug, [facility] [address] 53976- 8835 Jul, Low back pain M54.5 and Anxiety disorder, unspecified F41.9 [facility] [address] 28725- 6055 Jul, [facility] [address] 87366- 6731 Jun, Lumbago with sciatica, right side M54.41 ; Cervical disc disease M50.90 and Gastroesophageal reflux disease, esophagitis presence not specified K21.9 [facility] [id number] [place] [address] 83149- 3408 Jun, [facility] [address] 25858- 6502 Jun, [facility] [id number] [place] [address] 37371- 6361 Jun, [facility] [address] 05619- 0957 Jun, [facility] [address] [place] [address]- 7847 Jun, [facility] [id number] [place] [address] 38335- 2224 23 May, 2016 [facility] [id number] [place] [address], [place] [address]- 4800 May, [facility] [id number] [place] [address] 49043- 8684 May, [facility] [id number] [place] [address], [place] [address]- 8962 Apr, [facility] [id number] [place] [address] 46190- 8096 Apr, [facility] [id number] [place] [address] 10807- 5546 Apr, [facility] [id number] [place] [address] 99460- 0771 Apr, Cervical disc disease M50.90 [facility] [id number] [place] [address] 22085- 3768 Apr, [facility] [id number] [place] [address] 77060- 4423 Apr, Neck pain M54.2 ; Hypertension I10 and Reactive depression F32.9 [facility] [address] [place] [address] 75837- 8442 Mar, [facility] [address] [place] [address] 46381- 4577 Mar, [facility] [id number] [place] [address] 65847- 9254 Mar, [facility] [id number] [place] [address] 40276- 9131 Feb, Sciatica M54.30 [facility] [address] 86779- 3501 13 Feb, 2016 Paresthesias R20.2 ; Sciatica M54.30 and Reactive depression F32.9 [facility] [address] 31315- 0221 06 Feb, 2016 [facility] [address] 53861- 2329 January, [facility] [address] 96631- 1350 January, Hyperlipemia, mixed E78.2 ; Other abnormalities of heart beat R00.8 and Anxiety F41.9 [place] [address] 50173- 7127 January, [place] [address] 88728- 1945 January, Low back pain M54.5 [place] [address] 07667- 9011 January, Anxiety disorder, unspecified F41.9 [facility] [address] 55174- 9251 18 Dec, 2015 Ventricular bigeminy I49.9 [facility] [address] 86136- 7346 Dec, [facility] [address] 62069- 6352 Dec, Low back pain M54.5 [facility] [address] 85255- 1985 Dec, Sciatica M54.30 [facility] [address] 90882- 5225 Nov, Major depressive disorder, single episode, unspecified F32.9 [facility] [address] 60904- 5694 14 Nov, 2015 Sciatica M54.30 [facility] [id number] [place] [address] 19447- 6853 14 Nov, 2015 [facility] [address] 14425- 6576 Nov, [facility] [id number] [place] [address] 21037- 7558 Nov, Anxiety disorder, unspecified F41.9 [facility] [address] 74931- 7124 Nov, [facility] [address] 37057- 8063 Nov, Depressed F32.9 and Anxiety F41.9 [facility] [id number] [place] [address] 81354- 4684 Nov, Lumbago 724.2 ; Sciatica M54.30 and PVCs (premature ventricular contractions) I49.3 [facility] [id number] [place] [address] 98443- 8437 Oct, [facility] [address] 88521- 7508 Oct, [facility] [id number] [place] [address] 80632- 2880 Oct, Sciatica M54.30 and Hypertension I10 [facility] [id number] [place] [address] 88467- 3944 Oct, [facility] [id number] [place] [address] 01995- 7532 Oct, [facility] [address] 70176- 3223 Oct, [facility] [id number] [place] [address] 05654- 3350 Sep, [facility] [address] 29075- 9697 Sep, [facility] [address] [place] [address]- 9963 Sep, [facility] [address] [address]- 1682 Sep, Ventricular arrhythmia I49.9 [facility] [address] [place] [address] 66055- 9965 Sep, Ventricular bigeminy I49.9 and Hypertension I10 [facility] [address] [place] [address] 50727- 5355 Sep, Lumbago M54.5 and Ventricular bigeminy I49.9 [facility] [address] [place] [address], [place] [address]- 4041 Sep, [facility] [address] [place] [address] 89481- 4841 Aug, [facility] [address] [address]- 9025 Aug, [facility] [address] [place] [address], [place] [address]- 1421 Aug, [facility] [address] [address]- 2418 Aug, [facility] [id number] [place] [address]- 9600 Aug, [facility] [address] [address]- 5468 Jul, [facility] [address] [address]- 8839 29 Jun, 2015 [facility] [address] [address]- 2403 14 May, 2015 [facility] [address] [address]- 1787 May, [facility] [address] [address]- 3168 May, Lumbago 724.2 and Depressive disorder, not elsewhere classified 311 [facility] [address] [address]- 0852 Apr, UTI (urinary tract infection) 599.0 [facility] [address] [place] [address] 184678- 5987 Apr, UTI (urinary tract infection) 599.0 and Depression 311 [facility] [address] 1523 Mar, [facility] [address] [address]- 3359 Mar, [facility] [address] [address]- 4022 Mar, [facility] [address] [address]- 6860 Mar, Unspecified essential hypertension 401.9 ; Lumbago 724.2 and Anxiety 300.00 [facility] [address] [address]- 0304 Mar, [facility] [address] [address]- 2621 Feb, [facility] [address] [address]- 4404 Feb, [facility] [id number] [address]- 3152 January, [facility] [address] 1106 Dec, [facility] [id number] [address]- 8659 Dec, [facility] [id number] [address]- 7170 Oct, [facility] [place] [facility] [address] [id number] [place] [address]- 2103 10 Oct, 2014 [facility] [place] [facility] [address] [id number] [place] [address]- 1764 Oct, [facility] [place] [facility] [address] [id number] [place] [address]- 8728 Oct, [facility] [place] [facility] [address] [id number] [place] [address]- 5124 Sep, [facility] [place] [facility] [address] [id number] [place] [address]- 4878 Sep, [facility] [place] [facility] [address] [id number] [place] [address]- 9124 Sep, [facility] [place] [facility] [address] [id number] [place] [address]- 0069 Sep, [facility] [place] [facility] [address] [id number] [place] [address]- 2163 Aug, [facility] [place] [facility] [address] [id number] [place] [address]- 3451 Aug, [facility] [place] [facility] [address] [id number] [place] [address]- 2368 Jul, [facility] [place] [facility] [address] [id number] [address]- 2128 Jul, [facility] [place] [facility] [address] [id number], [place] [address]- 2944 Jun, [facility] [place] [facility] [address] [id number] [place] [address]- 0704 Jun, [facility] [place] [facility] [address] [id number] [place] [address]- 4533 Jun, [facility] [place] [facility] [address] [id number] [place] [address]- 4156 Jun, [facility] [place] [facility] [address] [id number] [place] [address]- 5314 Jun, [facility] [place] [facility] [address] [id number] [place] [address]- 3803 Jun, [facility] [place] [facility] [address] [id number] [place] [address]- 5426 May, [facility] [place] [facility] [address] [id number] [place] [address]- 9327 May, [facility] [place] [facility] [address] [id number] [place] [address]- 6740 Apr, [facility] [place] [facility] [address] [id number] [place] [address]- 1185 Apr, [facility] [place] [facility] [address] [id number] [place] [address]- 3442 Apr, [facility] [place] [facility] [address] [id number] [place] [address]- 3805 Apr, [facility] [place] [facility] [address] [id number] [place] [address]- 0467 Mar, [facility] [place] [facility] [address] [id number] [place] [address]- 5001 Mar, [facility] [place] [facility] [address] [id number] [place] [address]- 0458 Mar, [facility] [place] [facility] [address] [id number] [place] [address]- 6150 Mar, [facility] [place] [facility] [address] [id number] [place] [address]- 0536 Mar, [facility] [place] [facility] [address] [id number] [place] [address]- 1840 Mar, [facility] [place] [facility] [address] [id number] [place] [address]- 0938 Mar, [facility] [place] [facility] [address] [id number] [place] [address]- 8288 Mar, [facility] [place] [facility] [address] [id number] [place] [address]- 3848 Feb, [facility] [place] [facility] [address] [id number] [place] [address]- 0354 Feb, [facility] [place] [facility] [address] [id number] [place] [address]- 8510 January, [facility] [place] [facility] [address] [id number] [place] [address]- 4295 January, [facility] [place] [facility] [address] [id number] [place] [address]- 7234 January, [facility] [place] [facility] [address] [id number] [place] [address]- 0299 January, [facility] [place] [facility] [address] [id number] [place] [address]- 2174 Dec, [facility] [place] [facility] [address] [id number] [place] [address]- 7967 Dec, [facility] [place] [facility] [address] [id number] [place] [address]- 4694 Dec, [facility] [place] [facility] [address] [id number] [place] [address]- 1638 Dec, [facility] [place] [facility] [address] [id number] [place] [address]- 4914 Nov, [facility] [place] [facility] [address] [id number] [place] [address] Nov, [facility] [place] [facility] [address] [id number] [place] [address] Sep, [facility] [place] [facility] [address] [id number] [place] [address] Sep, [facility] [place] [facility] [address] [id number] [place] [address] Sep, [facility] [address] [id number], [place] [address] Sep, [facility] [address] [id number] [place] [address] Sep, [facility] [facility] [address] [id number] [place] [address] Sep, [facility] [place] [facility] [address] [id number] [place] [address] Aug, [facility] [place] [facility] [address] [id number] [place] [address] Aug, [facility] [place] [facility] [address] [id number] [place] [address] Aug, [facility] [place] [facility] [address] [id number] [place] [address] Aug, [facility] [place] [facility] [address] [id number] [place] [address] Jul, [facility] [place] [facility] [address] [id number] [place] [address] Jul, [facility] [facility] [address] [id number] [place] [address] Jun, [facility] [place] [facility] [address] [id number] [place] [address] Jun, [facility] [place] [facility] [address] [id number], [place] [address] Mar, [facility] [address] [id number] [place] [address] January, [facility] [place] [facility] [address] [id number] [place] [address] Dec, [facility] [place] [facility] [address] [id number] [place] [address] Dec, [facility] [facility] [address] [id number] [place] [address] Nov, [facility] [facility] [address] [facility] [id number] [place] [address] Nov, [facility] [address] [facility] [id number], [place] [address] Oct, [facility] [address] [facility] [id number], [place] [address] January, [facility] [address] [facility] [id number], [place] [address] Dec, [facility] [address] [facility] [id number] [place] [address] Sep, IMMUNIZATIONS No Known Immunizations SOCIAL HISTORY Never Assessed REASON FOR VISIT Tramadol 12/22 PLAN OF CARE VITAL SIGNS MEDICATIONS Medication [...]
--- OUTSIDE RECORDS SUMMARY | 2018-08-12 07:17 | XMS REPORT ---
Author Author JOHANNY KINNEY Organization [facility] Address [address] [place] [address] Care Team Providers Care Yard Caller Name Role Phone JOHANNY KINNEY Unavailable PROBLEMS Type Condition ICD9-CM Code KSS32-YN Code Onset Dates Condition Status SNOMED Code Problem Neck pain M54.2 Active 33569816 Problem Gastroesophageal reflux disease, esophagitis presence not specified K21.9 Active 976614869 Problem Cervical disc disease M50.90 Active 456976790 Problem Chronic maxillary sinusitis J32.0 Active 19657476 Problem Right maxillary sinusitis J32.0 Active 31876238 Problem Mixed hyperlipidemia E78.2 Active 988333526 Problem Anxiety disorder, unspecified F41.9 Active 398971760 Problem Sinusitis chronic, frontal J32.1 Active 29557242 Problem Prediabetes R73.03 Active 603826019 Problem PVCs (premature ventricular contractions) I49.3 Active 23848850 Problem Reactive depression F32.9 Active 38782490 Problem Hypertension I10 Active 53038753 Problem Lumbago with sciatica, right side M54.41 Active 836761129 Problem Sciatica M54.30 Active 05240664 Problem Other chronic pain G89.29 Active [id number] ALLERGIES No Information ENCOUNTERS Encounter Location Date Diagnosis [facility] [id number] [place] [address] 28719- 4784 Mar, Gastroesophageal reflux disease, esophagitis presence not specified K21.9 and Low back pain M54.5 [facility] [id number] [place] [address] 75051 -4592 20 Feb, 2018 Chronic maxillary sinusitis J32.0 [facility] [address] [address] 1624 14 Feb, 2018 Low back pain M54.5 [facility] [id number] [place] [address] 58599- 0469 Feb, Low back pain M54.5 [facility] [address] 80293- 6976 Feb, Low back pain M54.5 [facility] [address] 27228- 4103 January, [facility] [address] 81822- 2298 January, Sinusitis chronic, frontal J32.1 [facility] [address] 94699- 7996 January, Lumbago with sciatica, right side M54.41 ; Cervical disc disease M50.90 ; Hypertension I10 and Gastroesophageal reflux disease, esophagitis presence not specified K21.9 [facility] [address] 73274- 2060 Dec, Low back pain M54.5 [facility] [address] 80181- 2690 Dec, Low back pain M54.5 [facility] [address] 53985- 2663 Nov, [facility] [id number] [place] [address] 95843 -5788 Nov, Right maxillary sinusitis J32.0 [facility] [id number] [place] [address] 66900- 0800 Nov, Low back pain M54.5 [facility] [id number] [place] [address] 89619 -7746 Oct, Sinusitis chronic, frontal J32.1 [facility] [id number] [place] [address] 79834- 9060 Oct, Neck pain M54.2 [facility] [address] [place] [address]- 9684 Sep, Low back pain M54.5 [facility] [address] 72911- 2602 Sep, Neck pain M54.2 [facility] [address] 76533- 6190 Sep, Lumbago with sciatica, right side M54.41 ; Hypertension I10 ; Bronchitis J40 and Anxiety disorder, unspecified F41.9 [facility] [address] 06364- 3522 Aug, Neck pain M54.2 and Low back pain M54.5 [facility] [address] 86809- 6046 16 Jul, 2017 Neck pain M54.2 and Low back pain M54.5 [facility] [address] 69454- 2267 06 Jul, 2017 Neck pain M54.2 [facility] [address] 24285- 7834 Jun, Low back pain M54.5 and Neck pain M54.2 [facility] [id number] [place] [address] 95282- 0657 22 May, 2017 Low back pain M54.5 and Neck pain M54.2 [facility] [address] 28983- 4817 21 May, 2017 [facility] [address] 72612 -5538 14 May, 2017 Bronchitis J40 [facility] [address] 90443- 4651 Apr, Hyperglycemia R73.9 [facility] [id number] [place] [address] 05928- 3417 Apr, Hyperglycemia R73.9 [facility] [id number] [place] [address]- 2923 Apr, Gastroesophageal reflux disease, esophagitis presence not specified K21.9 ; Mixed hyperlipidemia E78.2 ; Neck pain M54.2 and PVCs ( premature ventricular contractions) I49.3 [facility] [id number] [place] [address] 24514- 3869 Mar, Low back pain M54.5 [facility] [address] 03474- 5838 Feb, Low back pain M54.5 and Gastroesophageal reflux disease, esophagitis presence not specified K21.9 [facility] [address] 91806- 4729 January, Dyspnea on exertion R06.09 [facility] [address] 71602- 1896 January, Hypertension I10 [facility] [address] 72851- 8113 January, [facility] [id number] [place] [address] 67911- 7791 January, Low back pain M54.5 [facility] [id number] [place] [address] 55913- 7955 January, Low back pain M54.5 [facility] [id number] [place] [address] 15911- 2799 January, Gastroesophageal reflux disease, esophagitis presence not specified K21.9 ; Lumbago with sciatica, right side M54.41 and Dyspnea on exertion R06.09 [facility] [id number] [place] [address] 85786- 5134 Nov, [facility] [id number] [place] [address] 27423- 3462 Nov, [facility] [id number] [place] [address] 66459- 2239 Nov, Gastroesophageal reflux disease, esophagitis presence not specified K21.9 and Bronchitis J40 [facility] [address] 83225- 9252 15 Oct, 2016 Low back pain M54.5 and Anxiety disorder, unspecified F41.9 [facility] [address] 36885- 0690 10 Oct, 2016 Bronchitis J40 ; Hypertension I10 ; Sciatica M54.[address] [facility] [address] [id number] Sep, Dental examination Z01.20 [facility] [address] [id number] Sep, Dental examination Z01.20 and Dental caries K02.9 [facility] [address] 65225- 8175 Aug, [facility] [address] 30314- 0220 Jul, Low back pain M54.5 and Anxiety disorder, unspecified F41.9 [facility] [address] 04008- 8552 Jul, [facility] [address] 33112- 7413 Jun, Lumbago with sciatica, right side M54.41 ; Cervical disc disease M50.90 and Gastroesophageal reflux disease, esophagitis presence not specified K21.9 [facility] [id number] [place] [address] 92319- 0063 Jun, [facility] [address] 31724- 6001 Jun, [facility] [id number] [place] [address] 68106- 4517 Jun, [facility] [address] 70066- 5733 Jun, [facility] [address] [place] [address]- 1399 Jun, [facility] [id number] [place] [address] 51476- 8666 23 May, 2016 [facility] [id number] [place] [address], [place] [address]- 2183 May, [facility] [id number] [place] [address] 19198- 4688 May, [facility] [id number] [place] [address], [place] [address]- 3829 Apr, [facility] [id number] [place] [address] 35580- 4077 Apr, [facility] [id number] [place] [address] 39230- 0580 Apr, [facility] [id number] [place] [address] 70112- 6558 Apr, Cervical disc disease M50.90 [facility] [id number] [place] [address] 46337- 5320 Apr, [facility] [id number] [place] [address] 26854- 0595 Apr, Neck pain M54.2 ; Hypertension I10 and Reactive depression F32.9 [facility] [address] [place] [address] 54270- 5307 Mar, [facility] [address] [place] [address] 98586- 9679 Mar, [facility] [id number] [place] [address] 34278- 7849 Mar, [facility] [id number] [place] [address] 92045- 4378 Feb, Sciatica M54.30 [facility] [address] 17229- 7570 13 Feb, 2016 Paresthesias R20.2 ; Sciatica M54.30 and Reactive depression F32.9 [facility] [address] 02598- 1395 06 Feb, 2016 [facility] [address] 67563- 4741 January, [facility] [address] 54908- 4317 January, Hyperlipemia, mixed E78.2 ; Other abnormalities of heart beat R00.8 and Anxiety F41.9 [place] [address] 69412- 2245 January, [place] [address] 43975- 0375 January, Low back pain M54.5 [place] [address] 92678- 0461 January, Anxiety disorder, unspecified F41.9 [facility] [address] 20886- 4820 18 Dec, 2015 Ventricular bigeminy I49.9 [facility] [address] 46604- 5971 Dec, [facility] [address] 02214- 9644 Dec, Low back pain M54.5 [facility] [address] 83983- 3275 Dec, Sciatica M54.30 [facility] [address] 67909- 6779 Nov, Major depressive disorder, single episode, unspecified F32.9 [facility] [address] 36681- 2436 14 Nov, 2015 Sciatica M54.30 [facility] [id number] [place] [address] 09577- 0426 14 Nov, 2015 [facility] [address] 54431- 3309 Nov, [facility] [id number] [place] [address] 78854- 7681 Nov, Anxiety disorder, unspecified F41.9 [facility] [address] 77587- 5542 Nov, [facility] [address] 35846- 1772 Nov, Depressed F32.9 and Anxiety F41.9 [facility] [id number] [place] [address] 77687- 9841 Nov, Lumbago 724.2 ; Sciatica M54.30 and PVCs (premature ventricular contractions) I49.3 [facility] [id number] [place] [address] 48831- 8803 Oct, [facility] [address] 13291- 4575 Oct, [facility] [id number] [place] [address] 67677- 7332 Oct, Sciatica M54.30 and Hypertension I10 [facility] [id number] [place] [address] 23847- 1146 Oct, [facility] [id number] [place] [address] 24609- 9659 Oct, [facility] [address] 13709- 4796 Oct, [facility] [id number] [place] [address] 57084- 1992 Sep, [facility] [address] 03891- 0657 Sep, [facility] [address] [place] [address]- 7029 Sep, [facility] [address] [address]- 4497 Sep, Ventricular arrhythmia I49.9 [facility] [address] [place] [address] 65561- 2283 Sep, Ventricular bigeminy I49.9 and Hypertension I10 [facility] [address] [place] [address] 21430- 1787 Sep, Lumbago M54.5 and Ventricular bigeminy I49.9 [facility] [address] [place] [address], [place] [address]- 4224 Sep, [facility] [id number] [place] [address] 10497- 5817 Aug, [facility] [address] [address]- 4038 Aug, [facility] [address] [place] [address], [place] [address]- 7306 Aug, [facility] [address] [address]- 7786 Aug, [facility] [address] [place] [address]- 6964 Aug, [facility] [address] [address]- 0100 Jul, [facility] [address] [address]- 1580 29 Jun, 2015 [facility] [address] [address]- 5921 14 May, 2015 [facility] [address] [address]- 1130 May, [facility] [address] [address]- 4637 May, Lumbago 724.2 and Depressive disorder, not elsewhere classified 311 [facility] [address] [address]- 6959 Apr, UTI (urinary tract infection) 599.0 [facility] [address] [place] [address] 415067- 2336 Apr, UTI (urinary tract infection) 599.0 and Depression 311 [facility] [address] 9675 Mar, [facility] [address] [address]- 9094 Mar, [facility] [address] [address]- 5108 Mar, [facility] [address] [address]- 2079 Mar, Unspecified essential hypertension 401.9 ; Lumbago 724.2 and Anxiety 300.00 [facility] [address] [address]- 8258 Mar, [facility] [address] [address]- 6641 Feb, [facility] [address] [address]- 6331 Feb, [facility] [id number] [address]- 2662 January, [facility] [address] 6191 Dec, [facility] [id number] [address]- 1691 Dec, [facility] [id number] [address]- 2423 Oct, [facility] [place] [facility] [address] [id number] [place] [address]- 7178 10 Oct, 2014 [facility] [place] [facility] [address] [id number] [place] [address]- 7616 Oct, [facility] [place] [facility] [address] [id number] [place] [address]- 5981 Oct, [facility] [place] [facility] [address] [id number] [place] [address]- 6460 Sep, [facility] [place] [facility] [address] [id number] [place] [address]- 2423 Sep, [facility] [place] [facility] [address] [id number] [place] [address]- 1850 Sep, [facility] [place] [facility] [address] [id number] [place] [address]- 7123 Sep, [facility] [place] [facility] [address] [id number] [place] [address]- 8726 Aug, [facility] [place] [facility] [address] [id number] [place] [address]- 9067 Aug, [facility] [place] [facility] [address] [id number] [place] [address]- 5884 Jul, [facility] [place] [facility] [address] [id number] [address]- 3934 Jul, [facility] [place] [facility] [address] [id number] [address]- 2648 Jun, [facility] [place] [facility] [address] [id number] [place] [address]- 9256 Jun, [facility] [place] [facility] [address] [id number] [place] [address]- 7401 Jun, [facility] [place] [facility] [address] [id number] [place] [address]- 6757 Jun, [facility] [place] [facility] [address] [id number] [place] [address]- 8897 Jun, [facility] [place] [facility] [address] [id number] [place] [address]- 6183 Jun, [facility] [place] [facility] [address] [id number] [place] [address]- 2309 May, [facility] [place] [facility] [address] [id number] [place] [address]- 8838 May, [facility] [place] [facility] [address] [id number] [place] [address]- 4325 Apr, [facility] [place] [facility] [address] [id number] [place] [address]- 8674 Apr, [facility] [place] [facility] [address] [id number] [place] [address]- 6192 Apr, [facility] [place] [facility] [address] [id number] [place] [address]- 0446 Apr, [facility] [place] [facility] [address] [id number] [place] [address]- 0705 Mar, [facility] [place] [facility] [address] [id number] [place] [address]- 6537 Mar, [facility] [place] [facility] [address] [id number] [place] [address]- 4851 Mar, [facility] [place] [facility] [address] [id number] [place] [address]- 1962 Mar, [facility] [place] [facility] [address] [id number] [place] [address]- 9822 Mar, [facility] [place] [facility] [address] [id number] [place] [address]- 5874 Mar, [facility] [place] [facility] [address] [id number] [place] [address]- 6262 Mar, [facility] [place] [facility] [address] [id number] [place] [address]- 7899 Mar, [facility] [place] [facility] [address] [id number] [place] [address]- 1195 Feb, [facility] [place] [facility] [address] [id number] [place] [address]- 4830 Feb, [facility] [place] [facility] [address] [id number] [place] [address]- 7283 January, [facility] [place] [facility] [address] [id number] [place] [address]- 3236 January, [facility] [place] [facility] [address] [id number] [place] [address]- 1350 January, [facility] [place] [facility] [address] [id number] [place] [address]- 5694 January, [facility] [place] [facility] [address] [id number] [place] [address]- 1552 Dec, [facility] [place] [facility] [address] [id number] [place] [address]- 5428 Dec, [facility] [place] [facility] [address] [id number] [place] [address]- 1326 Dec, [facility] [place] [facility] [address] [id number] [place] [address]- 5110 Dec, [facility] [place] [facility] [address] [id number] [place] [address]- 7324 Nov, [facility] [place] [facility] [address] [id number] [place] [address]- 5799 Nov, [facility] [place] [facility] [address] [id number] [place] [address]- 3064 Sep, [facility] [place] [facility] [address] [id number] [place] [address]- 2883 Sep, [facility] [place] [facility] [address] [id number] [place] [address]- 0275 Sep, [facility] [place] [facility] [address] [id number] [address]- 7471 Sep, [facility] [address] [id number] [place] [address]- 9724 Sep, [facility] [place] [facility] [address] [id number] [place] 5611 Sep, [facility] [place] [facility] [address] [id number] [place] [address] Aug, [facility] [place] [facility] [address] [id number] [place] [address] Aug, [facility] [place] [facility] [address] [id number] [place] [address] Aug, [facility] [place] [facility] [address] [id number] [place] [address] Aug, [facility] [place] [facility] [address] [id number] [place] [address] Jul, [facility] [place] [facility] [address] [id number] [place] [address] Jul, [facility] [place] [facility] [address] [id number] [place] [address] Jun, [facility] [place] [facility] [address] [id number] [place] [address] Jun, [facility] [place] [facility] [address] [id number] [place] [address] Mar, [facility] [place] [facility] [address] [id number] [place] [address] January, [facility] [place] [facility] [address] [id number] [place] [address] Dec, [facility] [place] [facility] [address] [id number] [place] [address] Dec, [facility] [place] [facility] [address] [id number] [place] [address] [address] Nov, [facility] [place] [facility] [address] [facility] [id number] [place] [address] Nov, [facility] [address] [facility] [id number] [place] [address] Oct, [facility] [address] [facility] [id number] [place] [address] January, [facility] [address] [facility] [id number] [place] [address] Dec, [facility] [address] [facility] [id number] [place] [address] Sep, IMMUNIZATIONS No Known Immunizations SOCIAL HISTORY Never Assessed REASON FOR VISIT Tramadol 11/24 PLAN OF CARE VITAL SIGNS MEDICATIONS Medication [...]
--- OUTSIDE RECORDS SUMMARY | 2018-08-12 07:17 | XMS REPORT ---
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 Name Role Phone RONI RAMEY Unavailable PROBLEMS Type Condition ICD9-CM Code NOI50-HF Code Onset Dates Condition Status SNOMED Code Problem Neck pain M54.2 Active 73411112 Problem Gastroesophageal reflux disease, esophagitis presence not specified K21.9 Active 122727793 Problem Cervical disc disease M50.90 Active 628046838 Problem Chronic maxillary sinusitis J32.0 Active 28578882 Problem Right maxillary sinusitis J32.0 Active 60027554 Problem Mixed hyperlipidemia E78.2 Active 776026349 Problem Anxiety disorder, unspecified F41.9 Active 327523653 Problem Sinusitis chronic, frontal J32.1 Active 06701257 Problem Prediabetes R73.03 Active 844963547 Problem PVCs (premature ventricular contractions) I49.3 Active 19063530 Problem Reactive depression F32.9 Active 15909706 Problem Hypertension I10 Active 13748378 Problem Lumbago with sciatica, right side M54.41 Active 913279111 Problem Sciatica M54.30 Active 78831225 Problem Other chronic pain G89.29 Active [id number] ALLERGIES No Information ENCOUNTERS Encounter Location Date Diagnosis [facility] [address], [place] [address] Mar, Gastroesophageal reflux disease, esophagitis presence not specified K21.9 and Low back pain M54.5 [facility] [address], [place] [address] Feb, Chronic maxillary sinusitis J32.0 [facility] [id number], [place] [address] 14 Feb, 2018 Low back pain M54.5 [facility] [id number] [place] [address] 77792- 5283 Feb, Low back pain M54.5 [facility] [address] 7[address]71- 9354 Feb, Low back pain M54.5 [facility] [id number] [place] [address] 98872- 1958 January, [facility] [address] [address]08- 0176 January, Sinusitis chronic, frontal J32.1 [facility] [address] [address]276- 4527 January, Lumbago with sciatica, right side M54.41 ; Cervical disc disease M50.90 ; Hypertension I10 and Gastroesophageal reflux disease, esophagitis presence not specified K21.9 [facility] [address] [address]25- 8324 Dec, Low back pain M54.5 [facility] [id number] [place] [address] 54070- 8457 Dec, Low back pain M54.5 [facility] [address] 14561- 9080 Nov, [facility] [id number] [place] [address] 53434 -4941 Nov, Right maxillary sinusitis J32.0 [facility] [id number] [place] [address] 58167- 0433 Nov, Low back pain M54.5 [facility] [id number] [place] [address] 26515 -8462 Oct, Sinusitis chronic, frontal J32.1 [facility] [id number] [place] [address] 47075- 5396 Oct, Neck pain M54.2 [facility] [address] 23221- 9989 Sep, Low back pain M54.5 [facility] [id number] [place] [address] 43668- 6907 Sep, Neck pain M54.2 [facility] [id number] [place] [address] 78202- 7462 Sep, Lumbago with sciatica, right side M54.41 ; Hypertension I10 ; Bronchitis J40 and Anxiety disorder, unspecified F41.9 [facility] [id number] [place] [address] 01989- 2807 Aug, Neck pain M54.2 and Low back pain M54.5 [facility] [address] 91204- 9600 16 Jul, 2017 Neck pain M54.2 and Low back pain M54.5 [facility] [address] 99287- 7840 Jul, Neck pain M54.2 [facility] [address] 13794- 8702 Jun, Low back pain M54.5 and Neck pain M54.2 [facility] [id number] [place] [address] 82661- 3079 22 May, 2017 Low back pain M54.5 and Neck pain M54.2 [facility] [address] 35452- 1413 21 May, 2017 [facility] [id number] [place] [address] 93064 -3008 14 May, 2017 Bronchitis J40 [facility] [address] 33058- 7999 Apr, Hyperglycemia R73.9 [facility] [id number] [place] [address] 59800- 0770 08 Apr, 2017 Hyperglycemia R73.9 [facility] [address] [place] [address] 6[address] Apr, Gastroesophageal reflux disease, esophagitis presence not specified K21.9 ; Mixed hyperlipidemia E78.2 ; Neck pain M54.2 and PVCs ( premature ventricular contractions) I49.3 [facility] [address] 53568- 2359 Mar, Low back pain M54.5 [facility] [address] 00562- 9868 Feb, Low back pain M54.5 and Gastroesophageal reflux disease, esophagitis presence not specified K21.9 [place] [address] 26639- 5367 January, Dyspnea on exertion R06.09 [facility] [address] 85685- 1735 January, Hypertension I10 [facility] [address] 61331- 7054 January, [facility] [address] 40269- 3327 January, Low back pain M54.5 [facility] [address] 31662- 2962 January, Low back pain M54.5 [facility] [id number] [place] [address] 22093- 8090 January, Gastroesophageal reflux disease, esophagitis presence not specified K21.9 ; Lumbago with sciatica, right side M54.41 and Dyspnea on exertion R06.09 [facility] [address] 97447- 0145 Nov, [facility] [address] 40133- 9202 Nov, [facility] [id number] [place] [address] 19106- 2463 28 Mar, 2017 Gastroesophageal reflux disease, esophagitis presence not specified K21.9 and Bronchitis J40 [facility] [id number] [place] [address] 45952- 9904 15 Oct, 2016 Low back pain M54.5 and Anxiety disorder, unspecified F41.9 [facility] [id number] [place] [address] 97029- 7520 10 Oct, 2016 Bronchitis J40 ; Hypertension I10 ; Sciatica M54.30 and Paresthesias R20.2 [facility] [address] [id number] Sep, Dental examination Z01.20 [facility] [address] [id number] Sep, Dental examination Z01.20 and Dental caries K02.9 [facility] [address] 14490- 2680 Aug, [facility] [address] 74934- 2363 Jul, Low back pain M54.5 and Anxiety disorder, unspecified F41.9 [facility] [address] 00791- 3632 Jul, [facility] [address] 94173- 3617 Jun, Lumbago with sciatica, right side M54.41 ; Cervical disc disease M50.90 and Gastroesophageal reflux disease, esophagitis presence not specified K21.9 [facility] [id number] [place] [address] 83890- 4757 Jun, [facility] [address] 75221- 9339 Jun, [facility] [id number] [place] [address] 17032- 1958 Jun, [facility] [address] 84676- 4085 Jun, [facility] [address], [place] [address]- 6628 Jun, [facility] [id number] [place] [address] 88096- 7176 23 May, 2016 [facility] [id number] [place] [address] 80279- 7919 May, [facility] [id number] [place] [address] 75067- 7044 May, [facility] [address] [place] [address], [place] [address]- 9417 Apr, [facility] [id number] [place] [address] 11696- 1431 Apr, [facility] [id number] [place] [address] 39885- 5438 Apr, [facility] [id number] [place] [address] 73858- 1075 Apr, Cervical disc disease M50.90 [facility] [id number] [place] [address] 55029- 2476 Apr, [facility] [id number] [place] [address] 63715- 4647 Apr, Neck pain M54.2 ; Hypertension I10 and Reactive depression F32.9 [facility] [address] [place] [address] 98192- 8855 Mar, [facility] [id number] [place] [address] 87580- 2884 Mar, [facility] [id number] [place] [address] 68526- 6091 Mar, [facility] [address] [place] [address] 97538- 4431 Feb, Sciatica M54.30 [facility] [address] [place] [address] 48550- 8294 Feb, Paresthesias R20.2 ; Sciatica M54.30 and Reactive depression F32.9 [place] [address] 66964- 8488 Feb, [facility] [address] 45104- 5945 January, [facility] [address] 62065- 6321 January, Hyperlipemia, mixed E78.2 ; Other abnormalities of heart beat R00.8 and Anxiety F41.9 [place] [address] 24646- 7403 January, [place] [address] 75653- 0691 January, Low back pain M54.5 [place] [address] 57329- 7166 January, Anxiety disorder, unspecified F41.9 [place] [address] 93520- 1953 18 Dec, 2015 Ventricular bigeminy I49.9 [place] [address] 74039- 4244 Dec, [facility] [address] 04816- 0968 Dec, Low back pain M54.5 [facility] [address] 58414- 1192 Dec, Sciatica M54.30 [facility] [address] 40773- 0987 Nov, Major depressive disorder, single episode, unspecified F32.9 [facility] [address] 36423- 0309 14 Nov, 2015 Sciatica M54.30 [facility] [id number] [place] [address] 99022- 7501 14 Nov, 2015 [facility] [address] 68598- 2198 Nov, [facility] [id number] [place] [address] 41202- 8833 Nov, Anxiety disorder, unspecified F41.9 [facility] [address] 96099- 6402 Nov, [facility] [id number] [place] [address] 71737- 9944 Nov, Depressed F32.9 and Anxiety F41.9 [facility] [id number] [place] [address] 92642- 6347 Nov, Lumbago 724.2 ; Sciatica M54.30 and PVCs (premature ventricular contractions) I49.3 [facility] [id number] [place] [address] 22139- 6313 Oct, [facility] [id number] [place] [address] 59224- 7771 Oct, [facility] [id number] [place] [address] 28658- 7110 Oct, Sciatica M54.30 and Hypertension I10 [facility] [id number] [place] [address] 91165- 2522 Oct, [facility] [id number] [place] [address] 40360- 4256 Oct, [facility] [address] 16004- 8300 Oct, [facility] [id number] [place] [address] 88249- 9749 Sep, [facility] [address] 70466- 6043 Sep, [facility] [address], [place] [address]- 4368 Sep, [facility] [address], [place] [address]- 6184 Sep, Ventricular arrhythmia I49.9 [facility] [address] [place] [address] 49895- 7658 Sep, Ventricular bigeminy I49.9 and Hypertension I10 [facility] [address] [place] [address] 28403- 2328 Sep, Lumbago M54.5 and Ventricular bigeminy I49.9 [facility] [address] [place] [address] 05655- 8193 Sep, [facility] [address] [place] [address] 10243- 4947 Aug, [facility] [address], [place] [address]- 2573 Aug, [facility] [address] [place] [address] 55590- 2911 Aug, [facility] [address], [place] [address]- 9069 Aug, [facility] [address], [place] [address]- 7525 Aug, [facility] [address], [place] [address]- 2918 Jul, [facility] [address], [place] [address]- 2841 29 Jun, 2015 [facility] [address], [place] [address]- 4923 14 May, 2015 [facility] [address], [place] [address]- 4356 May, [facility] [address], [place] [address]- 6507 May, Lumbago 724.2 and Depressive disorder, not elsewhere classified 311 [facility] [address], [place] [address]- 3396 Apr, UTI (urinary tract infection) 599.0 [facility] [address] [place] [address] 33920- 8587 Apr, UTI (urinary tract infection) 599.0 and Depression 311 [facility] [address], [place] [address]- 6978 Mar, [facility] [address] [place] [address] 75896- 3939 Mar, [facility] [address], [place] [address]- 3775 Mar, [facility] [address] [place] [address] 07831- 4073 Mar, Unspecified essential hypertension 401.9 ; Lumbago 724.2 and Anxiety 300.00 [facility] [address], [place] [address]- 8256 Mar, [facility] [address], [place] [address]- 8494 Feb, [facility] [address], [place] [address]- 8066 Feb, [facility] [address], [place] [address]- 4158 January, [facility] [address], [place] [address]- 6335 Dec, [facility] [address], [place] [address]- 0835 Dec, [facility] [address], [place] [address]- 0183 Oct, [facility] [place] [facility] [address] [id number] [place] [address]- 1242 10 Oct, 2014 [facility] [place] [facility] [address] [id number] [place] [address]- 3091 Oct, [facility] [place] [facility] [address] [id number] [place] [address]- 9607 Oct, [facility] [place] [facility] [address] [id number] [place] [address]- 6069 Sep, [facility] [place] [facility] [address] [id number] [place] [address]- 6920 Sep, [facility] [place] [facility] [address] [id number] [place] [address]- 6278 Sep, [facility] [place] [facility] [address] [id number] [place] [address]- 7580 Sep, [facility] [place] [facility] [address] [id number], [place] [address]- 9419 Aug, [facility] [place] [facility] [address] [id number] [place] [address]- 6610 Aug, [facility] [place] [facility] [address] [id number], [place] [address]- 5879 Jul, [facility] [place] [facility] [address] [id number], [place] [address]- 7789 Jul, [facility] [place] [facility] [address] [id number], [place] [address]- 7097 Jun, [facility] [place] [facility] [address] [id number] [place] [address]- 5880 Jun, [facility] [place] [facility] [address] [id number], [place] [address]- 0780 Jun, [facility] [place] [facility] [address] [id number], [place] [address]- 4892 Jun, [facility] [place] [facility] [address] [id number] [place] [address]- 7251 Jun, [facility] [place] [facility] [address] [id number] [place] [address]- 3196 Jun, [facility] [place] [facility] [address] [id number] [place] [address]- 9626 May, [facility] [place] [facility] [address] [id number] [place] [address]- 4056 May, [facility] [place] [facility] [address] [id number] [place] [address]- 2049 Apr, [facility] [place] [facility] [address] [id number] [place] [address]- 7996 Apr, [facility] [place] [facility] [address] [id number] [place] [address]- 9613 Apr, [facility] [place] [facility] [address] [id number] [place] [address]- 4354 Apr, [facility] [place] [facility] [address] [id number] [place] [address]- 1077 Mar, [facility] [place] [facility] [address] [id number] [place] [address]- 4673 Mar, [facility] [place] [facility] [address] [id number] [place] [address]- 3892 Mar, [facility] [place] [facility] [address] [id number] [place] [address]- 5140 Mar, [facility] [place] [facility] [address] [id number] [place] [address]- 0373 Mar, [facility] [place] [facility] [address] [id number] [place] [address]- 5155 Mar, [facility] [place] [facility] [address] [id number] [place] [address]- 4754 Mar, [facility] [place] [facility] [address] [id number] [place] [address]- 5806 Mar, [facility] [place] [facility] [address] [id number] [place] [address]- 1897 Feb, [facility] [place] [facility] [address] [id number] [place] [address]- 5945 Feb, [facility] [place] [facility] [address] [id number] [place] [address]- 0035 January, [facility] [place] [facility] [address] [id number] [place] [address]- 9998 January, [facility] [place] [facility] [address] [id number] [place] [address]- 1179 January, [facility] [place] [facility] [address] [id number] [place] [address]- 2071 January, [facility] [place] [facility] [address] [id number] [place] [address]- 6428 Dec, [facility] [place] [facility] [address] [id number] [place] [address]- 9756 Dec, [facility] [place] [facility] [address] [id number] [place] [address]- 2597 Dec, [facility] [place] [facility] [address] [id number] [place] [address]- 4097 Dec, [facility] [place] [facility] [address] [id number] [place] [address]- 6362 Nov, [facility] [place] [facility] [address] [id number] [place] [address]- 1391 Nov, [facility] [place] [facility] [address] [id number] [place] [address]- 0471 Sep, [facility] [place] [facility] [address] [id number] [place] [address]- 6942 Sep, [facility] [place] [facility] [address] [id number] [place] [address]- 7247 16 Sep, 2013 [facility] [place] [facility] [address] [id number] [place] [address]- 3046 Sep, [facility] [address] [id number] [place] [address]- 8936 Sep, [facility] [place] [facility] [address] [id number] [place] [address]- 6701 Sep, [facility] [place] [facility] [address] [id number] [place] [address]- 2590 Aug, [facility] [place] [facility] [address] [id number] [place] [address]- 8680 Aug, [facility] [place] [facility] [address] [id number] [place] [address]- 5584 Aug, [facility] [place] [facility] [address] [id number] [place] [address]- 5339 Aug, [facility] [place] [facility] [address] [id number] [place] [address]- 2636 Jul, [facility] [place] [facility] [address] [id number] [place] [address]- 8650 Jul, [facility] [place] [facility] [address] [id number] [place] [address]- 2724 Jun, [facility] [place] [facility] [address] [id number] [place] [address]- 4592 Jun, [facility] [place] [facility] [address] [id number], [place] [address]- 8171 Mar, [facility] [place] [facility] [address] [id number], [place] [address]- 5879 January, [facility] [place] [facility] [address] [id number] [place] [address]- 3504 Dec, [facility] [place] [facility] [address] [id number] [place] [address]- 8995 Dec, [facility] [place] [facility] [address] [id number] [place] [address]- 3063 Nov, [facility] [place] [facility] [address] [facility] [id number] [place] [address]- 2546 Nov, [facility] [address] [facility] [id number], [place] [address]- 4847 Oct, [facility] [address] [facility] [id number], [place] [address] January, [facility] [address] [facility] [id number], [place] [address] Dec, [facility] [address] [facility] [id number], [place] [address] Sep, IMMUNIZATIONS No Known Immunizations SOCIAL HISTORY Never Assessed REASON FOR VISIT Requests return call PLAN OF CARE VITAL SIGNS MEDICATIONS Unknown [...]
--- OUTSIDE RECORDS SUMMARY | 2018-08-12 07:17 | XMS REPORT ---
Author Author JOHANNY KINNEY Organization [facility] Address [address] [place] [address] Care Team Providers Care Teacher Hearing Impaired Name Role Phone JOHANNY KINNEY Unavailable PROBLEMS Type Condition ICD9-CM Code XMR90-KG Code Onset Dates Condition Status SNOMED Code Problem Other chronic pain G89.29 Active 97461187 Problem Cervical disc disease M50.90 Active 634327278 Problem Neck pain M54.2 Active 04175885 Problem Right maxillary sinusitis J32.0 Active 44807528 Problem Sinusitis chronic, frontal J32.1 Active 82275357 Problem Anxiety disorder, unspecified F41.9 Active 913251572 Problem Gastroesophageal reflux disease, esophagitis presence not specified K21.9 Active 356156993 Problem Prediabetes R73.03 Active 213525087 Problem Mixed hyperlipidemia E78.2 Active 637254744 Problem Sciatica M54.30 Active 30940984 Problem PVCs (premature ventricular contractions) I49.3 Active 40328101 Problem Reactive depression F32.9 Active 43589803 Problem Hypertension I10 Active 29023623 Problem Lumbago with sciatica, right side M54.41 Active 241996921 ALLERGIES No Information ENCOUNTERS Encounter Location Date Diagnosis [place] [id number] [place] [address] 33915- 5420 January, Sinusitis chronic, frontal J32.1 [facility] [id number] [place] [address] 75061- 1092 January, Lumbago with sciatica, right side M54.41 ; Cervical disc disease M50.90 ; Hypertension I10 and Gastroesophageal reflux disease, esophagitis presence not specified K21.9 [place] [address] [id number] [address] 6754 Dec, Low back pain M54.5 [place] [address] [place] [address] [id number] [place] [address] 48963- 6532 Dec, Low back pain M54.5 [facility] [address] 90483- 5462 Nov, [facility] [id number] [place] [address] 15092 -4591 Nov, Right maxillary sinusitis J32.0 [facility] [address] 16425- 6536 Nov, Low back pain M54.5 [facility] [address] 73482 -2442 Oct, Sinusitis chronic, frontal J32.1 [place] [address] 54483- 1212 Oct, Neck pain M54.2 [place] [address] 19057- 4028 Sep, Low back pain M54.5 [place] [address] 81113- 9199 Sep, Neck pain M54.2 [place] [address] [address] [id number] [place] [address] 12879- 6692 Sep, Lumbago with sciatica, right side M54.41 ; Hypertension I10 ; Bronchitis J40 and Anxiety disorder, unspecified F41.9 [facility] [id number] [place] [address] 55690- 7480 Aug, Neck pain M54.2 and Low back pain M54.5 [facility] [address] 40417- 3522 Jul, Neck pain M54.2 and Low back pain M54.5 [facility] [id number] [place] [address] 20500- 2828 Jul, Neck pain M54.2 [place] [address] [id number] [place] [address] 40401- 7337 Jun, Low back pain M54.5 and Neck pain M54.2 [facility] [address] 08492- 1061 May, Low back pain M54.5 and Neck pain M54.2 [facility] [address] 25400- 9876 May, [facility] [address] 28703 -4681 14 May, 2017 Bronchitis J40 [place] [address] 73833- 3378 11 Apr, 2017 Hyperglycemia R73.9 [place] [address] 87720- 9912 08 Apr, 2017 Hyperglycemia R73.9 [place] [address] 73767- 9285 Apr, Gastroesophageal reflux disease, esophagitis presence not specified K21.9 ; Mixed hyperlipidemia E78.2 ; Neck pain M54.2 and PVCs ( premature ventricular contractions) I49.3 [place] [address] 90957- 6311 Mar, Low back pain M54.5 [place] [address] 24133- 8491 Feb, Low back pain M54.5 and Gastroesophageal reflux disease, esophagitis presence not specified K21.9 [place] [address] 94148- 7862 January, Dyspnea on exertion R06.09 [place] [address] 39282- 6698 January, Hypertension I10 [place] [address] 57977- 2181 January, [facility] [id number] [place] [address] 55847- 8979 January, Low back pain M54.5 [facility] [address] [id number] [place] [address] 52172- 7536 January, Low back pain M54.5 [facility] [id number] [place] [address] 15153- 5462 January, Gastroesophageal reflux disease, esophagitis presence not specified K21.9 ; Lumbago with sciatica, right side M54.41 and Dyspnea on exertion R06.09 [place] [address] 30898- 9412 Nov, [facility] [address] 40282- 9806 Nov, [facility] [address] 28133- 7011 Nov, Gastroesophageal reflux disease, esophagitis presence not specified K21.9 and Bronchitis J40 [facility] [id number] [place] [address] 07049- 0013 15 Oct, 2016 Low back pain M54.5 and Anxiety disorder, unspecified F41.9 [facility] [address] [id number] [place] [address] 76884- 1768 10 Oct, 2016 Bronchitis J40 ; Hypertension I10 ; Sciatica M54.30 and Paresthesias R20.2 [facility] [address] [id number] [place] [address] [id number] Sep, Dental examination Z01.20 [facility] [id number] [place] [address] [id number] Sep, Dental examination Z01.20 and Dental caries K02.9 [facility] [id number] [place] [address] 11460- 2779 Aug, [facility] [address] 85398- 1816 Jul, Low back pain M54.5 and Anxiety disorder, unspecified F41.9 [facility] [address] [id number] [place] [address] 91277- 5057 Jul, [facility] [address] [id number] [place] [address], [place] [address]- 4518 Jun, Lumbago with sciatica, right side M54.41 ; Cervical disc disease M50.90 and Gastroesophageal reflux disease, esophagitis presence not specified K21.9 [facility] [address] [facility] [id number] [place] [address], [place] [address]- 3197 Jun, [facility] [address] [id number] [place] [address], [place] [address]- 4228 Jun, [facility] [address] [place] [id number] [place] [address] 48217- 7660 Jun, [facility] [id number] [place] [address] 48078- 3813 Jun, [facility] [address] [place] [id number] [place] [address] 58989- 2253 Jun, [facility] [address] [place] [id number] [place] [address] 62225- 8626 May, [facility] [id number], [place] [address]- 6575 May, [facility] [id number], [place] [address]- 9718 May, [facility] [id number], [place] [address]- 1424 Apr, [facility] [address] [place] [id number] [place] [address] 53006- 8891 Apr, [facility] [address] [facility] [id number], [place] [address]- 4276 Apr, [facility] [address] [place] [id number] [place] [address] 40374- 6660 Apr, Cervical disc disease M50.90 [facility] [address] [id number] [place] [address] 28496- 9868 Apr, [facility] [address] 76140- 8504 Apr, Neck pain M54.2 ; Hypertension I10 and Reactive depression F32.9 [facility] [address] 48172- 0946 Mar, [facility] [address] 56825- 7760 Mar, [facility] [address] 46216- 3333 Mar, [place] [address] 11527- 3834 Feb, Sciatica M54.30 [place] [address] 33645- 4336 Feb, Paresthesias R20.2 ; Sciatica M54.30 and Reactive depression F32.9 [place] [address] [place] [id number] [place] [address] 09763- 6948 Feb, [place] [address] [place] [id number] [place] [address] 97200- 1420 January, [facility] [address] [place] [address] [id number] [place] [address] 44113- 3557 January, Hyperlipemia, mixed E78.2 ; Other abnormalities of heart beat R00.8 and Anxiety F41.9 [place] [address] 22826- 9693 January, [facility] [address] 37653- 2649 January, Low back pain M54.5 [place] [address] 40117- 3505 January, Anxiety disorder, unspecified F41.9 [facility] [address] [id number] [place] [address] 29675- 5066 Dec, Ventricular bigeminy I49.9 [facility] [address] 17381- 6835 Dec, [facility] [address] 49258- 1408 Dec, Low back pain M54.5 [facility] [address] 65341- 3084 Dec, Sciatica M54.30 [place] [address] 38540- 5858 Nov, Major depressive disorder, single episode, unspecified F32.9 [facility] [address] 62120- 0297 Nov, Sciatica M54.30 [facility] [address] [address] [id number] [place] [address] 51984- 1204 Nov, [facility] [address] 59798- 9530 Nov, [facility] [address] [address] [id number] [place] [address] 99532- 6161 Nov, Anxiety disorder, unspecified F41.9 [facility] [address] [address] [id number] [place] [address] 17929- 9629 Nov, [facility] [address] [id number] [place] [address] 25601- 4366 Nov, Depressed F32.9 and Anxiety F41.9 [facility] [address] [address] [id number] [place] [address] 86019- 0534 Nov, Lumbago 724.2 ; Sciatica M54.30 and PVCs (premature ventricular contractions) I49.3 [place] [address] [place] [address]- 6384 Oct, [facility] [address] [id number] [place] [address] 26080- 4268 Oct, [facility] [address] [id number] [place] [address] 53205- 7858 Oct, Sciatica M54.30 and Hypertension I10 [facility] [address] [id number] [place] [address] 28379- 4425 Oct, [facility] [address] [id number] [place] [address] 74506- 8633 Oct, [facility] [address] [id number] [place] [address] 90995- 9307 Oct, [facility] [address] [id number] [place] [address] 66945- 9165 Sep, [facility] [address] [id number] [place] [address] 46861- 7257 Sep, [facility] [address] [id number] [place] [address] 83522- 8493 Sep, [facility] [address] [id number] [place] [address] 72472- 3228 Sep, Ventricular arrhythmia I49.9 [facility] [address] [id number] [place] [address] 65305- 3457 Sep, Ventricular bigeminy I49.9 and Hypertension I10 [facility] [address] [place] [address] 76999- 6146 Sep, Lumbago M54.5 and Ventricular bigeminy I49.9 [facility] [address] [id number] [place] [address] 10010- 5878 Sep, [facility] [address] [place] [address] 65083- 1181 Aug, [facility] [address] [address] [id number] [address]- 7847 Aug, [facility] [address] [facility] [id number], [place] [address]- 9066 Aug, [facility] [id number], [place] [address]- 6774 Aug, [facility] [address], [place] [address]- 4611 Aug, [facility] [id number], [place] [address]- 1946 Jul, [facility] [address], [place] [address]- 9967 Jun, [facility] [address] 7418 May, [facility] [address], [place] [address]- 3221 May, [facility] [id number] 6102 May, Lumbago 724.2 and Depressive disorder, not elsewhere classified 311 [facility] [id number] 9731 Apr, UTI (urinary tract infection) 599.0 [facility] [id number], [place] [address]- 8983 Apr, UTI (urinary tract infection) 599.0 and Depression 311 [facility] [id number], [place] [address]- 3892 Mar, [facility] [id number], [place] [address]- 3144 Mar, [facility] [id number], [place] [address]- 4534 Mar, [facility] [id number], [place] [address]- 2163 Mar, Unspecified essential hypertension 401.9 ; Lumbago 724.2 and Anxiety 300.00 [facility] [address], [place] [address]- 6972 Mar, [facility] [address] [place] [address]- 4344 Feb, [facility] [id number] [place] [address] 94892- 0660 Feb, [facility] [address] [place] [address] [id number] [place] [address]- 2217 January, [facility] [id number] [place] [address], [place] [address]- 8036 Dec, [facility] [id number] [address]- 1980 Dec, [facility] [address] [place] [address], [place] [address]- 1218 Oct, [facility] [address], [place] [address]- 4856 Oct, [facility] [address], [place] [address]- 6614 Oct, [facility] [address], [place] [address]- 8504 Oct, [facility] [address], [place] [address]- 5009 Sep, [facility] [address], [place] [address]- 3211 Sep, [facility] [address], [place] [address]- 8037 Sep, [facility] [id number], [place] [address]- 4666 Sep, [facility] [address], [place] [address]- 0425 Aug, [facility] [place] [facility] [address] [id number] [place] [address]- 6757 Aug, [facility] [place] [facility] [address] [id number] [place] [address]- 7780 Jul, [facility] [place] [facility] [address] [id number] [place] [address]- 6977 Jul, [facility] [place] [facility] [address] [id number] [place] [address]- 1605 Jun, [facility] [place] [facility] [address] [id number] [place] [address]- 5773 Jun, [facility] [place] [facility] [address] [id number] [place] [address]- 2868 Jun, [facility] [place] [facility] [address] [id number] [place] [address]- 6360 Jun, [facility] [place] [facility] [address] [id number] [place] [address]- 4136 Jun, [facility] [place] [facility] [address] [id number] [place] [address]- 4164 Jun, [facility] [place] [facility] [address] [id number] [place] [address]- 8271 May, [facility] [place] [facility] [address] [id number] [address]- 4750 May, [facility] [place] [facility] [address] [id number], [place] [address]- 4529 Apr, [facility] [place] [facility] [address] [id number] [place] [address]- 6123 Apr, [facility] [place] [facility] [address] [id number] [place] [address]- 9435 Apr, [facility] [place] [facility] [address] [id number] [place] [address]- 4363 Apr, [facility] [place] [facility] [address] [id number] [place] [address]- 9858 Mar, [facility] [place] [facility] [address] [id number] [place] [address]- 2122 Mar, [facility] [place] [facility] [address] [id number] [place] [address]- 7466 Mar, [facility] [place] [facility] [address] [id number] [place] [address]- 4657 Mar, [facility] [place] [facility] [address] [id number] [place] [address]- 0642 Mar, [facility] [place] [facility] [address] [id number] [place] [address]- 4986 Mar, [facility] [place] [facility] [address] [id number] [place] [address]- 5178 Mar, [facility] [place] [facility] [address] [id number] [place] [address]- 9223 Mar, [facility] [place] [facility] [address] [id number] [place] [address]- 7797 Feb, [facility] [place] [facility] [address] [id number] [place] [address]- 4324 Feb, [facility] [place] [facility] [address] [id number] [place] [address]- 0468 January, [facility] [place] [facility] [address] [id number] [place] [address]- 6373 January, [facility] [place] [facility] [address] [id number] [place] [address]- 3456 January, [facility] [place] [facility] [address] [id number] [place] [address]- 4813 January, [facility] [place] [facility] [address] [id number] [place] [address]- 8516 Dec, [facility] [place] [facility] [address] [id number] [place] [address]- 4922 Dec, [facility] [place] [facility] [address] [id number] [place] [address]- 1811 14 Dec, 2013 [facility] [address] [id number] [place] [address]- 8766 14 Dec, 2013 [facility] [address] [id number] [place] [address]- 3647 13 Nov, 2013 [facility] [place] [facility] [address] [id number] [place] [address]- 3271 Nov, [facility] [address] [id number] [place] [address]- 8291 Sep, [facility] [address] [id number] [place] [address]- 3759 Sep, [facility] [address] [id number] [place] [address]- 5752 Sep, [facility] [address] [id number] [place] [address]- 5194 Sep, [facility] [address] [id number] [place] [address]- 3410 Sep, [facility] [address] [id number] [place] [address]- 2656 Sep, [facility] [address] [id number] [place] [address]- 7083 Aug, [facility] [place] [facility] [address] [id number] [place] [address]- 7781 Aug, [facility] [place] [facility] [address] [id number] [place] [address]- 6660 Aug, [facility] [place] [facility] [address] [id number] [place] [address]- 6280 Aug, [facility] [place] [facility] [address] [id number] [place] [address]- 6489 Jul, [facility] [place] [facility] [address] [id number], [place] [address] 2546 Jul, [facility] [address], [place] [address]- 5336 Jun, [facility] [address], [place] [address]- 0376 Jun, [facility] [address], [place] [address] 2546 Mar, [facility] [address], [place] [address]- 8465 January, [facility] [address], [place] [address]- 6713 Dec, [facility] [address], [place] [address] 2546 Dec, [facility] [address], [place] [address]- 0726 Nov, [facility] [address], [place] [address] 2546 Nov, [facility] [address], [place] [address]- [address] Oct, [facility] [id number], [place] [address] January, [facility] [id number] [address] Dec, [facility] [id number], [place] [address] Sep, IMMUNIZATIONS No Known Immunizations SOCIAL HISTORY Never Assessed REASON FOR VISIT Diazepam and Tramadol- 06/30 PLAN OF CARE VITAL SIGNS MEDICATIONS Medication Instructions Dosage Frequency Start Date End Date Duration Status Diazepam 5MG Orally, each fill must last 30 days Twice a day 1 tablet as needed 12h 28 days Active Tramadol HCl 50MG Orally, each fill must last 30 days every 6 hours 1 tablet 6h Active RESULTS No Results PROCEDURES No Known [...]
[2018-08-12 07:18] VITALS: BP 115/84
--- OUTSIDE RECORDS SUMMARY | 2018-08-12 07:18 | XMS REPORT ---
Author Author LAITH Campos Organization [facility] Address Unknown Care Team Providers Care Rn [facility] Name Role Phone lisaLAITH Reyna Unavailable PROBLEMS Type Condition ICD9-CM Code [id number] Code Onset Dates Condition Status SNOMED Code Problem Reactive depression F32.9 Active 08991108 Problem Other chronic pain G89.29 Active 15473710 Problem Lumbago with sciatica, right side M54.41 Active 338375297 Problem Hypertension I10 Active 97585089 Problem Sciatica M54.30 Active 74608501 Problem PVCs (premature ventricular contractions) I49.3 Active 47818415 Problem Prediabetes R73.03 Active 044777806 Problem Mixed hyperlipidemia E78.2 Active 216946845 Problem Cervical disc disease M50.90 Active 246226364 Problem Neck pain M54.2 Active 66527632 Problem Anxiety disorder, unspecified F41.9 Active 746128621 Problem Gastroesophageal reflux disease, esophagitis presence not specified K21.9 Active 033776941 ALLERGIES Substance Reaction Event Type Date Status N.K.D.A. Unknown Non Drug Allergy Sep, Unknown SOCIAL HISTORY No smoking Hx information available PLAN OF CARE VITAL SIGNS MEDICATIONS Medication Instructions Dosage Frequency Start Date End Date Duration Status Lipitor 10 MG Orally Once a day 1 tablet 24h Active Zoloft 50 mg Orally Once a day 1 tablet 24h Sep, Active Metoprolol Succinate ER 50 MG Orally Once a day 1 tablet 24h Sep, Active Zoloft 50MG Orally Once a day 1 tablet 24h 30 Active Cyclobenzaprine HCl 10 mg Orally Three times a day 1 tablet 8h 10 Active Omeprazole 20 mg Orally Once a day 1 24h Jun, Active Tramadol HCl 50MG Orally, each fill must last 30 days every 6 hours 1 tablet 6h Active Hydrocodone-Acetaminophen 5-325 MG Orally every 6 hrs 1 tablet as needed 6h Active Gabapentin 600 MG Orally Three times a day 1 capsule 8h Oct, Active Diazepam 5MG Orally, each fill must last 30 days Twice a day 1 tablet as needed 12h Active RESULTS No Results PROCEDURES Procedure Date Ordered Related Diagnosis Body Site LTD ORAL EVALUATION - PROBLEM FOCUS Oct 08, 2016 INTRAORL-PERIAPICAL 1 FILM 35170 Oct 08, 2016 Billing Notes on claim Oct 08, 2016 IMMUNIZATIONS No Known Immunizations
--- OUTSIDE RECORDS SUMMARY | 2018-08-12 07:18 | XMS REPORT ---
Author Author JOHANNY KINNEY Organization [facility] Address [address] [place] [address] Care Team Providers Care Drop Machine Operator Name Role Phone JOHANNY KINNEY Unavailable PROBLEMS Type Condition ICD9-CM Code BLL06-TT Code Onset Dates Condition Status SNOMED Code Problem Neck pain M54.2 Active 04607851 Problem Gastroesophageal reflux disease, esophagitis presence not specified K21.9 Active 182560804 Problem Cervical disc disease M50.90 Active 058234551 Problem Chronic maxillary sinusitis J32.0 Active 02634618 Problem Right maxillary sinusitis J32.0 Active 85932148 Problem Mixed hyperlipidemia E78.2 Active 878769356 Problem Anxiety disorder, unspecified F41.9 Active 726887099 Problem Sinusitis chronic, frontal J32.1 Active 28935957 Problem Prediabetes R73.03 Active 556024001 Problem PVCs (premature ventricular contractions) I49.3 Active 85207142 Problem Reactive depression F32.9 Active 83503931 Problem Hypertension I10 Active 36880685 Problem Lumbago with sciatica, right side M54.41 Active 180037391 Problem Sciatica M54.30 Active 22592117 Problem Other chronic pain G89.29 Active 16872164 ALLERGIES No Known Allergies ENCOUNTERS Encounter Location Date Diagnosis [facility] [address] [address] Feb, Chronic maxillary sinusitis J32.0 [facility] [id number] [place] [address] 00500- 3339 Feb, Low back pain M54.5 [facility] [id number] [place] [address] 97015- 9610 Feb, Low back pain M54.5 [facility] [id number] [place] [address] 96208- 3140 Feb, Low back pain M54.5 [facility] [id number] [place] [address] 16337- 0228 January, [facility] [address] 77198- 8055 January, Sinusitis chronic, frontal J32.1 [facility] [address] 32399- 9776 January, Lumbago with sciatica, right side M54.41 ; Cervical disc disease M50.90 ; Hypertension I10 and Gastroesophageal reflux disease, esophagitis presence not specified K21.9 [facility] [address] 39807- 7149 Dec, Low back pain M54.5 [facility] [address] 03134- 7381 Dec, Low back pain M54.5 [facility] [address] 51624- 5388 Nov, [facility] [address] [address] Nov, Right maxillary sinusitis J32.0 [facility] [id number] [place] [address] 16596- 1404 Nov, Low back pain M54.5 [facility] [id number] [place] [address] 93250 -8989 Oct, Sinusitis chronic, frontal J32.1 [facility] [id number] [place] [address] 54707- 5214 Oct, Neck pain M54.2 [facility] [id number] [place] [address] 75089- 0153 Sep, Low back pain M54.5 [facility] [address] 57299- 1071 Sep, Neck pain M54.2 [facility] [address] 72961- 9066 Sep, Lumbago with sciatica, right side M54.41 ; Hypertension I10 ; Bronchitis J40 and Anxiety disorder, unspecified F41.9 [facility] [address] 71575- 8609 Aug, Neck pain M54.2 and Low back pain M54.5 [facility] [address] 51558- 7384 Jul, Neck pain M54.2 and Low back pain M54.5 [place] [address] 01922- 2426 Jul, Neck pain M54.2 [place] [address] 16562- 4654 Jun, Low back pain M54.5 and Neck pain M54.2 [facility] [address] 67905- 1373 May, Low back pain M54.5 and Neck pain M54.2 [facility] [address] 77697- 5921 May, [facility] [address] 0[address]65 [address] 14 May, 2017 Bronchitis J40 [facility] [address] 32022- 3522 Apr, Hyperglycemia R73.9 [place] [address] 26465- 6957 Apr, Hyperglycemia R73.9 [facility] [address] 05532- 2786 Apr, Gastroesophageal reflux disease, esophagitis presence not specified K21.9 ; Mixed hyperlipidemia E78.2 ; Neck pain M54.2 and PVCs ( premature ventricular contractions) I49.3 [facility] [id number] [place] [address] 26824- 4016 Mar, Low back pain M54.5 [facility] [id number] [place] [address] 29020- 8365 Feb, Low back pain M54.5 and Gastroesophageal reflux disease, esophagitis presence not specified K21.9 [facility] [address] 40419- 0922 January, Dyspnea on exertion R06.09 [facility] [address] 73081- 6919 January, Hypertension I10 [facility] [address] 09496- 9270 January, [facility] [address] 68110- 8669 January, Low back pain M54.5 [facility] [id number] [place] [address] 50609- 6214 January, Low back pain M54.5 [facility] [id number] [place] [address] 42305- 7014 January, Gastroesophageal reflux disease, esophagitis presence not specified K21.9 ; Lumbago with sciatica, right side M54.41 and Dyspnea on exertion R06.09 [facility] [id number] [place] [address] 27225- 8238 30 Nov, 2016 [facility] [id number] [place] [address] 81388- 9197 Nov, [facility] [address] 50497- 6617 Nov, Gastroesophageal reflux disease, esophagitis presence not specified K21.9 and Bronchitis J40 [facility] [id number] [place] [address] 48594- 2395 Oct, Low back pain M54.5 and Anxiety disorder, unspecified F41.9 [facility] [id number] [place] [address] 15395- 5081 10 Oct, 2016 Bronchitis J40 ; Hypertension I10 ; Sciatica M54.30 and Paresthesias R20.2 [facility] [address] [place] [address] [id number] Sep, Dental examination Z01.20 [facility] [id number] [place] [address] [id number] Sep, Dental examination Z01.20 and Dental caries K02.9 [facility] [address] 01830- 3747 Aug, [facility] [id number] [place] [address] 36397- 5229 Jul, Low back pain M54.5 and Anxiety disorder, unspecified F41.9 [facility] [id number] [place] [address] 32396- 0446 Jul, [facility] [id number] [place] [address] 82914- 6403 Jun, Lumbago with sciatica, right side M54.41 ; Cervical disc disease M50.90 and Gastroesophageal reflux disease, esophagitis presence not specified K21.9 [facility] [id number] [place] [address] 39433- 6118 Jun, [facility] [id number] [place] [address] 04329- 1186 Jun, [facility] [id number] [place] [address] 29412- 2903 Jun, [facility] [id number] [place] [address] 91454- 1192 Jun, [facility] [id number] [place] [address] 22724- 8009 Jun, [facility] [address] [place] [address]- 8390 May, [facility] [address] [place] [address] 12299- 9818 May, [facility] [address] [address]- 8383 May, [facility] [address] [place] [address] 76066- 5278 Apr, [facility] [id number] [place] [address] 89973- 9688 Apr, [facility] [id number] [place] [address] 29176- 9178 Apr, [facility] [id number] [place] [address] 79487- 9107 Apr, Cervical disc disease M50.90 [facility] [id number] [place] [address] 43507- 2197 Apr, [facility] [id number] [place] [address] 71499- 0160 Apr, Neck pain M54.2 ; Hypertension I10 and Reactive depression F32.9 [facility] [id number] [place] [address] 15291- 2630 Mar, [facility] [id number] [place] [address] 20036- 5428 Mar, [facility] [id number] [place] [address] 91604- 1076 Mar, [facility] [id number] [place] [address] 67279- 0038 Feb, Sciatica M54.30 [facility] [id number] [place] [address] 02668- 9115 Feb, Paresthesias R20.2 ; Sciatica M54.30 and Reactive depression F32.9 [facility] [id number] [place] [address] 85675- 2870 Feb, [facility] [id number] [place] [address] 24933- 3046 January, [facility] [id number] [place] [address] 47593- 3094 January, Hyperlipemia, mixed E78.2 ; Other abnormalities of heart beat R00.8 and Anxiety F41.9 [facility] [address] 38999- 4036 January, [facility] [id number] [place] [address] 77173- 4521 January, Low back pain M54.5 [facility] [id number] [place] [address] 81555- 0229 January, Anxiety disorder, unspecified F41.9 [facility] [id number] [place] [address] 44841- 1023 Dec, Ventricular bigeminy I49.9 [facility] [id number] [place] [address] 04630- 4380 Dec, [facility] [id number] [place] [address] 41230- 8406 Dec, Low back pain M54.5 [facility] [id number] [place] [address] 80599- 5503 Dec, Sciatica M54.30 [facility] [id number] [place] [address] 66759- 3698 Nov, Major depressive disorder, single episode, unspecified F32.9 [facility] [id number] [place] [address] 56727- 1556 Nov, Sciatica M54.30 [facility] [id number] [place] [address] 70051- 7001 Nov, [facility] [id number] [place] [address] 75104- 8785 Nov, [facility] [id number] [place] [address] 51945- 7226 Nov, Anxiety disorder, unspecified F41.9 [facility] [id number] [place] [address] 44780- 9960 Nov, [facility] [address] 88693- 6091 Nov, Depressed F32.9 and Anxiety F41.9 [facility] [id number] [place] [address] 15879- 3280 Nov, Lumbago 724.2 ; Sciatica M54.30 and PVCs (premature ventricular contractions) I49.3 [facility] [address] 34011- 0668 Oct, [facility] [address] 19349- 7298 Oct, [facility] [id number] [place] [address] 57338- 8216 Oct, Sciatica M54.30 and Hypertension I10 [facility] [id number] [place] [address] 20974- 1394 Oct, [facility] [id number] [place] [address] 50795- 7569 Oct, [facility] [id number] [place] [address] 76084- 8941 Oct, [facility] [id number] [place] [address] 25135- 5715 Sep, [facility] [id number] [place] [address] 41827- 1192 Sep, [facility] [id number] [place] [address] 63597- 3469 Sep, [facility] [id number] [place] [address] 08532- 2852 Sep, Ventricular arrhythmia I49.9 [facility] [id number] [place] [address] 13946- 2898 Sep, Ventricular bigeminy I49.9 and Hypertension I10 [facility] [id number] [place] [address] 02373- 1809 Sep, Lumbago M54.5 and Ventricular bigeminy I49.9 [facility] [id number] [place] [address], [place] [address]- 7713 Sep, [facility] [id number] [place] [address], [place] [address]- 7305 Aug, [facility] [id number] [place] [address] 89743- 7082 Aug, [facility] [id number] [place] [address] 39477- 9170 Aug, [facility] [id number] [place] [address] 95299- 7741 Aug, [facility] [id number] [place] [address] 72296- 7057 Aug, [facility] [id number] [place] [address] 83275- 4996 Jul, [facility] [address] [place] [address] 47165- 2955 Jun, [facility] [address] [place] [address] 71767- 7794 14 May, 2015 [facility] [id number] [place] [address] 80436- 4721 May, [facility] [address] [place] [address] 42512- 3340 May, Lumbago 724.2 and Depressive disorder, not elsewhere classified 311 [facility] [address] [facility] [id number] [address]- 7168 Apr, UTI (urinary tract infection) 599.0 [facility] [address] [facility] [id number] 5506 Apr, UTI (urinary tract infection) 599.0 and Depression 311 [facility] [id number] [address]- 2571 Mar, [facility] [address] [facility] [id number] [address]- 7873 Mar, [facility] [id number] [address]- 4680 Mar, [facility] [address], [place] [address]- 4539 Mar, Unspecified essential hypertension 401.9 ; Lumbago 724.2 and Anxiety 300.00 [facility] [address] [address]- 3932 Mar, [facility] [id number] [address]- 2084 Feb, [facility] [id number] [address]- 4178 Feb, [facility] [id number] [address]- 2741 January, [facility] [id number] [address]- 9381 Dec, [facility] [address] [facility] [id number] [address]- 6868 Dec, [facility] [id number] 7566 Oct, [facility] [id number]- 3956 Oct, [facility] [id number] [place] [address]- 8913 Oct, [facility] [place] [facility] [address] [id number] [place] [address]- 4704 Oct, [facility] [place] [facility] [address] [id number] [place] 0883 Sep, [facility] [place] [facility] [address] [id number] [place] [address]- 5502 Sep, [facility] [place] [facility] [address] [id number] [place] [address]- 7398 Sep, [facility] [place] [facility] [address] [id number] [place] [address]- 7574 Sep, [facility] [place] [facility] [address] [id number] [place] [address]- 4818 Aug, [facility] [place] [facility] [address] [id number] [place] [address]- 0104 Aug, [facility] [place] [facility] [address] [id number] [place] [address]- 3398 Jul, [facility] [place] [facility] [address] [id number] [place] [address]- 0300 Jul, [facility] [place] [facility] [address] [facility] [id number] [place] [address]- 3494 Jun, [facility] [place] [facility] [address] [id number] [place] [address]- 8758 Jun, [facility] [place] [facility] [address] [id number] [place] [address]- 5051 Jun, [facility] [place] [facility] [address] [id number] [place]- 7918 Jun, [facility] [place] [facility] [address] [id number] [place] [address]- 5290 Jun, [facility] [place] [facility] [address] [id number] [place] [address]- 6054 Jun, [facility] [place] [facility] [address] [id number] [place] [address]- 0853 May, [facility] [place] [facility] [address] [id number] [place] 1410 May, [facility] [place] [facility] [address] [id number] [place] [address]- 2850 Apr, [facility] [place] [facility] [address] [id number] [place] [address]- 9350 Apr, [facility] [place] [facility] [address] [id number] [place] [address]- 5581 Apr, [facility] [place] [facility] [address] [id number] [place] [address]- 4510 Apr, [facility] [place] [facility] [address] [id number] [place] [address]- 5286 Mar, [facility] [place] [facility] [address] [id number] [place] [address]- 1909 Mar, [facility] [place] [facility] [address] [id number] [place] [address]- 1293 Mar, [facility] [place] [facility] [address] [id number] [place] [address]- 4707 Mar, [facility] [place] [facility] [address] [id number] [place] [address]- 4634 Mar, [facility] [place] [facility] [address] [id number] [place] [address]- 0672 Mar, [facility] [place] [facility] [address] [id number] [place] [address]- 3073 Mar, [facility] [place] [facility] [address] [id number] [place] [address]- 8246 Mar, [facility] [place] [facility] [address] [id number] [place] [address]- 8658 Feb, [facility] [place] [facility] [address] [id number] [place] [address]- 1276 Feb, [facility] [place] [facility] [address] [id number] [place] [address]- 4683 January, [facility] [place] [facility] [address] [id number] [place] 3503 January, [facility] [place] [facility] [address] [id number] [place] [address]- 5691 January, [facility] [place] [facility] [address] [id number] [place] [address]- 1890 January, [facility] [place] [facility] [address] [id number] [place] [address]- 1393 Dec, [facility] [place] [facility] [address] [id number] [place] [address]- 8869 Dec, [facility] [place] [facility] [address] [id number] [place] [address]- 2567 Dec, [facility] [place] [facility] [address] [id number] [place] [address]- 6313 Dec, [facility] [place] [facility] [address] [id number] [place] [address]- 0016 Nov, [facility] [place] [facility] [address] [id number] [place] [address]- 4812 Nov, [facility] [place] [facility] [address] [id number] [place] [address]- 7565 Sep, [facility] [place] [facility] [address] [id number] [place] [address]- 5492 Sep, [facility] [place] [facility] [address] [id number] [place] [address]- 6289 Sep, [facility] [place] [facility] [address] [id number] [place] [address]- 4033 Sep, [facility] [place] [facility] [address] [id number] [place] [address]- 6021 Sep, [facility] [place] [facility] [address] [id number] [place] [address]- 2276 Sep, [facility] [address] [id number] [place] [address]- 9587 Aug, [facility] [address] [id number] [place] [address] Aug, [facility] [address] [id number] [place] [address] Aug, [facility] [address] [id number] [place] [address] Aug, [facility] [address] [id number] [place] [address] Jul, [facility] [address] [id number] [place] [address] Jul, [facility] [address] [id number] [place] [address] Jun, [facility] [address] [id number] [place] [address] Jun, [facility] [address] [id number] [place] [address] Mar, [facility] [address] [id number] [place] [address] January, [facility] [address] [id number] [place] [address] Dec, [facility] [address] [id number] [place] [address] Dec, [facility] [place] [facility] [address] [id number] [place] [address] Nov, [facility] [address] [id number] [place] [address] Nov, [facility] [address] [id number] [place] [address] Oct, [facility] [address] [facility] [id number] [address] January, [facility] [address] [facility] [id number] [address] Dec, [facility] [address] [facility] [id number] [address] Sep, IMMUNIZATIONS No Known Immunizations SOCIAL HISTORY Never Assessed REASON FOR VISIT Pain management (chronic), C-PAP and O2 f/u-Buck [facility] PLAN OF CARE Activity Details Follow Up 3 Months Reason: VITAL SIGNS Height 62 in 2017-09-15 Weight 162.4 lbs 2017-09-15 Temperature 98.7 degrees Fahrenheit 2017-09-15 Heart Rate 82 bpm 2017-09-15 Respiratory Rate 20 2017-09-15 Oximetry 97 % 2017-09-15 BMI 29.70 kg/m2 2017-09-15 Blood pressure systolic 124 mmHg 2017-09-15 Blood pressure diastolic 86 mmHg 2017-09-15 MEDICATIONS Medication Instructions Dosage Frequency Start Date End Date Duration Status ProAir HFA 108 (90 Base) MCG/ACT Inhalation every 4 hrs 2 puffs as needed 4h May, 5 days Not-Taking Gabapentin 600MG TAKE ONE TABLET BY MOUTH THREE TIMES DAILY 30 Active Protonix 40 mg Orally twice a day 1 tablet 12h Nov, 30 day(s) Active Lipitor 10 MG Orally Once a day 1 tablet 24h Active Zoloft 50MG Orally Once a day 1 tablet 24h Active Doxycycline Hyclate 100 mg Orally Twice a day 1 capsule 12h Sep, Sep, 5 day(s) Active PredniSONE 20 mg Orally Once a day 2 tabs 24h Sep, Sep, 05 days Active C-PAP Machine Active Cyclobenzaprine HCl 10MG Orally Three times a day 1 tablet 8h Active Metoprolol Succinate ER 50 MG Orally Once a day 1 tablet 24h Sep, Active Diazepam 5MG Orally, each fill must last 30 days Twice a day 1 tablet as needed 12h 28 days Active Tramadol HCl 50MG Orally, each fill must last 30 days every 6 hours 1 tablet 6h 28 days Active RESULTS No Results PROCEDURES Procedure Date Ordered Result Body Site MEASURE BLOOD OXYGEN LEVEL Sep 15, 2017 INSTRUCTIONS MEDICATIONS ADMINISTERED No Known Medications MEDICAL [...]
--- OUTSIDE RECORDS SUMMARY | 2018-08-12 07:18 | XMS REPORT ---
Author Author JOHANNY KINNEY Organization [facility] Address [address] [place] [address] Care Team Providers Care Inspector Wreath Name Role Phone JOHANNY KINNEY Unavailable PROBLEMS Type Condition ICD9-CM Code [id number] Code Onset Dates Condition Status SNOMED Code Problem Reactive depression F32.9 Active 26925827 Problem Other chronic pain G89.29 Active 15353879 Problem Lumbago with sciatica, right side M54.41 Active 291283510 Problem Hypertension I10 Active 18428250 Problem Sciatica M54.30 Active 84275184 Problem PVCs (premature ventricular contractions) I49.3 Active 38413064 Problem Prediabetes R73.03 Active 092434985 Problem Mixed hyperlipidemia E78.2 Active 560200281 Problem Cervical disc disease M50.90 Active 198498376 Problem Neck pain M54.2 Active 90964797 Problem Anxiety disorder, unspecified F41.9 Active 997067847 Problem Gastroesophageal reflux disease, esophagitis presence not specified K21.9 Active 809689758 ALLERGIES No Information SOCIAL HISTORY Never Assessed PLAN OF CARE VITAL SIGNS MEDICATIONS Medication Instructions Dosage Frequency Start Date End Date Duration Status Diazepam 5MG Orally, each fill must last 30 days Twice a day 1 tablet as needed 12h Active RESULTS No Results PROCEDURES No Known procedures IMMUNIZATIONS No Known Immunizations MEDICAL (GENERAL) HISTORY Type Description Date Medical [...]
--- OUTSIDE RECORDS SUMMARY | 2018-08-12 07:19 | XMS REPORT ---
Author Author JOHANNY KINNEY Organization [facility] Address [address] [place] [address] Care Team Providers Care Adjuster Arbitrator Name Role Phone JOHANNY KINNEY Unavailable PROBLEMS Type Condition ICD9-CM Code RZC65-MH Code Onset Dates Condition Status SNOMED Code Problem Reactive depression F32.9 Active 13777518 Problem Other chronic pain G89.29 Active 55320845 Problem Lumbago with sciatica, right side M54.41 Active 615534089 Problem Hypertension I10 Active 34277346 Problem Sciatica M54.30 Active 61512608 Problem PVCs (premature ventricular contractions) I49.3 Active 27690646 Problem Prediabetes R73.03 Active 706382529 Problem Mixed hyperlipidemia E78.2 Active 980091879 Problem Cervical disc disease M50.90 Active 080856941 Problem Neck pain M54.2 Active 42642546 Problem Anxiety disorder, unspecified F41.9 Active 775400570 Problem Gastroesophageal reflux disease, esophagitis presence not specified K21.9 Active 500112835 ALLERGIES No Information SOCIAL HISTORY Never Assessed PLAN OF CARE VITAL SIGNS MEDICATIONS Medication Instructions Dosage Frequency Start Date End Date Duration Status Metoprolol Succinate ER 50 MG Orally Once a day 1 tablet 24h Sep, Active RESULTS No Results PROCEDURES No Known [...]
--- OUTSIDE RECORDS SUMMARY | 2018-08-12 07:19 | XMS REPORT ---
Author Author JOHANNY KINNEY Organization [facility] Address [address] [place] [address] Care Team Providers Care Registered Art Therapist Name Role Phone JOHANNY KINNEY Unavailable PROBLEMS Type Condition ICD9-CM Code [id number] Code Onset Dates Condition Status SNOMED Code Problem Other chronic pain G89.29 Active 03754000 Problem Cervical disc disease M50.90 Active 557785729 Problem Neck pain M54.2 Active 19546886 Problem Right maxillary sinusitis J32.0 Active 68052648 Problem Sinusitis chronic, frontal J32.1 Active 93966939 Problem Anxiety disorder, unspecified F41.9 Active 243420089 Problem Gastroesophageal reflux disease, esophagitis presence not specified K21.9 Active 822754717 Problem Prediabetes R73.03 Active 948417233 Problem Mixed hyperlipidemia E78.2 Active 627470690 Problem Sciatica M54.30 Active 27294659 Problem PVCs (premature ventricular contractions) I49.3 Active 47360424 Problem Reactive depression F32.9 Active 82953630 Problem Hypertension I10 Active 60388346 Problem Lumbago with sciatica, right side M54.41 Active 722009859 ALLERGIES No Information ENCOUNTERS Encounter Location Date Diagnosis [place] [id number] [address] January, [facility] [address] [address] January, Sinusitis chronic, frontal J32.1 [place] [address] [place] [id number] [address] January, Lumbago with sciatica, right side M54.41 ; Cervical disc disease M50.90 ; Hypertension I10 and Gastroesophageal reflux disease, esophagitis presence not specified K21.9 [place] [address] [place] [id number] [place] [address] 67369- 1548 Dec, Low back pain M54.5 [facility] [address] [address]- 6813 Dec, Low back pain M54.5 [facility] [address] [id number] [place] [address] 73147- 5061 Nov, [facility] [address] [address] -[address] Nov, Right maxillary sinusitis J32.0 [facility] [address] 80798- 1155 Nov, Low back pain M54.5 [facility] [address] [address] [id number] [place] [address] 73840 -6512 Oct, Sinusitis chronic, frontal J32.1 [place] [address] [address]79- 6226 Oct, Neck pain M54.2 [facility] [address] 70349- 7132 Sep, Low back pain M54.5 [facility] [address] [place] [address] [id number] [place] [address] 20807- 7211 Sep, Neck pain M54.2 [place] [address] 54893- 6181 Sep, Lumbago with sciatica, right side M54.41 ; Hypertension I10 ; Bronchitis J40 and Anxiety disorder, unspecified F41.9 [facility] [address] 55969- 6596 Aug, Neck pain M54.2 and Low back pain M54.5 [facility] [address] 53729- 1228 16 Jul, 2017 Neck pain M54.2 and Low back pain M54.5 [facility] [id number] [place] [address] 75196- 0908 Jul, Neck pain M54.2 [place] [address] 23099- 4702 Jun, Low back pain M54.5 and Neck pain M54.2 [facility] [address] [place] [id number] [place] [address] 59200- 0113 May, Low back pain M54.5 and Neck pain M54.2 [facility] [address] 84421- 6910 21 May, 2017 [facility] [address] 18844 -1693 14 May, 2017 Bronchitis J40 [place] [address] 61279- 5673 11 Apr, 2017 Hyperglycemia R73.9 [place] [address] 22594- 3614 08 Apr, 2017 Hyperglycemia R73.9 [place] [address] 36403- 7920 Apr, Gastroesophageal reflux disease, esophagitis presence not specified K21.9 ; Mixed hyperlipidemia E78.2 ; Neck pain M54.2 and PVCs ( premature ventricular contractions) I49.3 [place] [address] [place] [id number] [place] [address] 27267- 3310 Mar, Low back pain M54.5 [place] [address] [address] [id number] [place] [address] 20281- 5458 Feb, Low back pain M54.5 and Gastroesophageal reflux disease, esophagitis presence not specified K21.9 [place] [address] [place] [id number] [place] [address] 93000- 4796 January, Dyspnea on exertion R06.09 [place] [address] [place] [id number] [place] [address] 50177- 6456 January, Hypertension I10 [facility] [address] [address] [id number] [place] [address] 56808- 6381 January, [facility] [address] 84813- 9869 January, Low back pain M54.5 [facility] [address] 60795- 9329 January, Low back pain M54.5 [facility] [address] 97124- 0619 05 Jan, 2017 Gastroesophageal reflux disease, esophagitis presence not specified K21.9 ; Lumbago with sciatica, right side M54.41 and Dyspnea on exertion R06.09 [place] [address] 10142- 0965 30 Nov, 2016 [place] [address] 25669- 8004 Nov, [facility] [address] 00418- 8342 Nov, Gastroesophageal reflux disease, esophagitis presence not specified K21.9 and Bronchitis J40 [place] [address] [place] [id number] [place] [address] 99139- 2309 15 Oct, 2016 Low back pain M54.5 and Anxiety disorder, unspecified F41.9 [place] [address] [place] [id number] [place] [address] 04795- 9645 10 Oct, 2016 Bronchitis J40 ; Hypertension I10 ; Sciatica M54.30 and Paresthesias R20.2 [facility] [address] [place] [address] [id number] [place] [address] [id number] Sep, Dental examination Z01.20 [facility] [address] [id number] Sep, Dental examination Z01.20 and Dental caries K02.9 [facility] [address] [place] [id number] [place] [address] 34001- 1599 Aug, [facility] [address] [place] [address] 18503- 9184 Jul, Low back pain M54.5 and Anxiety disorder, unspecified F41.9 [facility] [address] [place] [address] [id number] [place] [address], [place] [address]- 3121 Jul, [facility] [address] [place] [address] [id number] [place] [address] 725311- 8420 Jun, Lumbago with sciatica, right side M54.41 ; Cervical disc disease M50.90 and Gastroesophageal reflux disease, esophagitis presence not specified K21.9 [facility] [address] [place] [address] [id number] [place] [address], [place] [address]- 1036 Jun, [facility] [address] [place] [address] [id number] [place] [address] 54678- 7680 Jun, [facility] [address] [address] [id number] [place] [address] 90688- 0390 Jun, [facility] [address] [id number] [place] [address] 91318- 9689 Jun, [facility] [address] [address] [id number] [place] [address] 83283- 2375 Jun, [facility] [address] [address]- 5250 May, [facility] [address] [place] [address] [id number] [place] [address] 03369- 1395 May, [facility] [address] [place] [address] 539195- 6623 May, [facility] [address] [place] [id number] [place] [address] 977360- 1321 Apr, [facility] [address] [place] [id number] 4311 Apr, [facility] [address] [place] [id number] [place] [address] 73167- 0407 Apr, [facility] [address] [place] [address] [id number] [place] [address] 80231- 1876 Apr, Cervical disc disease M50.90 [facility] [address] [place] [id number] [place] [address] 33457- 9751 Apr, [facility] [address] [place] [address] [id number] [place] [address] 77222- 6834 Apr, Neck pain M54.2 ; Hypertension I10 and Reactive depression F32.9 [facility] [address] [place] [id number] [place] [address] 97546- 4642 Mar, [facility] [address] 18753- 5262 Mar, [facility] [address] [place] [id number] [place] [address] 23560- 8472 Mar, [facility] [address] [place] [id number] [place] [address] 04212- 3242 Feb, Sciatica M54.30 [facility] [address] [place] [id number] [place] [address] 47312- 3546 Feb, Paresthesias R20.2 ; Sciatica M54.30 and Reactive depression F32.9 [facility] [address] [place] [id number] [place] [address] 06434- 9000 Feb, [facility] [address] [place] [id number] [place] [address] 53792- 7164 January, [facility] [address] [place] [id number] [place] [address] 32151- 1380 January, Hyperlipemia, mixed E78.2 ; Other abnormalities of heart beat R00.8 and Anxiety F41.9 [facility] [address] [id number] [place] [address] 55435- 4505 January, [facility] [address] [place] [id number] [place] [address] 62257- 4171 January, Low back pain M54.5 [facility] [address] [place] [address] 54305- 0788 January, Anxiety disorder, unspecified F41.9 [facility] [address] [place] [address] [id number] [place] [address] 42123- 0088 Dec, Ventricular bigeminy I49.9 [facility] [address] [place] [address] [id number] [place] [address] 20741- 2428 Dec, [facility] [address] [address] [id number] [place] [address] 87313- 9263 Dec, Low back pain M54.5 [facility] [address] [place] [id number] [place] [address] 26785- 4826 Dec, Sciatica M54.30 [facility] [address] [place] [id number] [place] [address] 24050- 5818 Nov, Major depressive disorder, single episode, unspecified F32.9 [facility] [address] [place] [id number] [place] [address] 25601- 1816 Nov, Sciatica M54.30 [facility] [address] [address] [id number] [place] [address] 93468- 2748 Nov, [facility] [address] [place] [id number] [place] [address] 69963- 0928 Nov, [facility] [address] [id number] [place] [address] 90087- 8843 Nov, Anxiety disorder, unspecified F41.9 [facility] [address] [place] [address] 54679- 9029 Nov, [facility] [address] [place] [address] [id number] [place] [address] 73289- 5565 Nov, Depressed F32.9 and Anxiety F41.9 [facility] [address] [place] [id number] [place] [address] 66157- 0098 Nov, Lumbago 724.2 ; Sciatica M54.30 and PVCs (premature ventricular contractions) I49.3 [facility] [address] [place] [id number] [place] [address] 69802- 2636 Oct, [facility] [address] [place] [id number] [place] [address] 19587- 9018 Oct, [facility] [address] [id number] [place] [address] 36099- 7741 Oct, Sciatica M54.30 and Hypertension I10 [facility] [address] [place] [id number] [place] [address] 84246- 9130 Oct, [facility] [address] 04732- 1226 Oct, [facility] [address] 73491- 3623 Oct, [facility] [address] 05882- 1191 Sep, [facility] [address] [id number] [place] [address] 60398- 4620 Sep, [facility] [address] [id number] [place] [address] 16507- 4760 Sep, [facility] [id number] [place] [address] 31498- 2485 Sep, Ventricular arrhythmia I49.9 [facility] [address] [place] [id number] [place] [address] 18801- 5522 Sep, Ventricular bigeminy I49.9 and Hypertension I10 [facility] [address] 77209- 7414 Sep, Lumbago M54.5 and Ventricular bigeminy I49.9 [facility] [address] [place] [id number] [place] [address] 82001- 9110 Sep, [facility] [address] [place] [address]- 2670 Aug, [facility] [address] [facility] [id number] [address]- 0486 Aug, [facility] [address] [facility] [id number] [address]- 6771 Aug, [facility] [address] [id number] [address]- 1232 Aug, [facility] [address] [facility] [id number] [place] [address]- 7769 Aug, [facility] [address] [id number] [address]- 3640 Jul, [facility] [address] [address]- 0599 Jun, [facility] [address] [address]- 6267 May, [facility] [address] [id number] [address]- 4725 May, [facility] [address] [id number] 2107 May, Lumbago 724.2 and Depressive disorder, not elsewhere classified 311 [facility] [address] [id number] [address]- 6985 Apr, UTI (urinary tract infection) 599.0 [facility] [address] [place] [id number] [address]- 7195 Apr, UTI (urinary tract infection) 599.0 and Depression 311 [facility] [address] [id number] [address]- 7075 Mar, [facility] [address] [id number] [address]- 7480 Mar, [facility] [address] [id number] [address]- 2718 Mar, [facility] [address] [id number] [address]- 3014 Mar, Unspecified essential hypertension 401.9 ; Lumbago 724.2 and Anxiety 300.00 [facility] [address] [facility] [id number] [place] [address]- 1616 Mar, [facility] [address] [facility] [id number] [place] [address]- 2878 Feb, [facility] [address] [facility] [id number] [place] [address]- 4976 Feb, [facility] [id number] [place] [address], [place] [address]- 9780 January, [facility] [address] [place] [address]- 2653 Dec, [facility] [id number] [place] [address], [place] [address]- 9785 Dec, [facility] [address] [id number] [address]- 1863 Oct, [facility] [address] [place] [address]- 1181 Oct, [facility] [address] [address]- 1678 Oct, [facility] [id number] [address]- 2277 Oct, [facility] [id number] [address]- 9613 Sep, [facility] [id number] [address]- 8959 Sep, [facility] [address] [facility] [id number] [place] [address]- 9806 Sep, [facility] [address] [address]- 7294 Sep, [facility] [place] [facility] [address] [id number] [place] [address]- 3689 Aug, [facility] [place] [facility] [address] [id number] [place] 2402 Aug, [facility] [place] [facility] [address] [id number] [place] [address]- 4541 Jul, [facility] [place] [facility] [address] [id number] [place] [address]- 6863 Jul, [facility] [place] [facility] [address] [id number] [place] [address]- 4635 Jun, [facility] [place] [facility] [address] [id number] [place] [address]- 1566 Jun, [facility] [place] [facility] [address] [id number] [place] [address]- 1143 Jun, [facility] [place] [facility] [address] [id number] [place] [address]- 4564 Jun, [facility] [place] [facility] [address] [id number] [place] [address]- 4034 Jun, [facility] [place] [facility] [address] [id number] [place] [address]- 7189 Jun, [facility] [place] [facility] [address] [id number] [place] [address]- 6158 May, [facility] [place] [facility] [address] [id number] [place] [address]- 2418 May, [facility] [place] [facility] [address] [id number] [place] [address]- 7454 Apr, [facility] [place] [facility] [address] [id number] [place] [address]- 4576 Apr, [facility] [place] [facility] [address] [id number] [place] [address]- 3625 Apr, [facility] [place] [facility] [address] [id number] [place] [address]- 5066 Apr, [facility] [place] [facility] [address] [id number] [place] [address]- 3382 Mar, [facility] [place] [facility] [address] [id number] [place]- 6289 Mar, [facility] [place] [facility] [address] [id number] [place] [address]- 9564 Mar, [facility] [place] [facility] [address] [id number] [place] [address]- 9851 Mar, [facility] [place] [facility] [address] [id number] [place] [address]- 0605 Mar, [facility] [place] [facility] [address] [id number] [place] [address]- 3976 Mar, [facility] [place] [facility] [address] [id number] [place] [address]- 7171 Mar, [facility] [place] [facility] [address] [id number] [place] [address]- 6535 Mar, [facility] [place] [facility] [address] [id number] [place] [address]- 1190 Feb, [facility] [place] [facility] [address] [id number] [place] [address]- 8101 Feb, [facility] [place] [facility] [address] [id number] [place] [address]- 8248 January, [facility] [place] [facility] [address] [id number] [place] [address]- 3786 January, [facility] [place] [facility] [address] [id number] [place] [address]- 2490 January, [facility] [place] [facility] [address] [id number] [place] [address]- 9356 January, [facility] [place] [facility] [address] [id number] [place] [address]- 8574 Dec, [facility] [place] [facility] [address] [id number] [place] [address]- 9819 14 Dec, 2013 [facility] [address] [id number] [place] [address]- 6933 14 Dec, 2013 [facility] [address] [id number] [place] [address]- 9887 14 Dec, 2013 [facility] [address] [id number] [place] [address]- 7448 13 Nov, 2013 [facility] [address] [id number] [place] [address]- 2946 Nov, [facility] [place] [facility] [address] [id number] [place] [address]- 4355 Sep, [facility] [address] [id number] [place] [address]- 4213 Sep, [facility] [address] [id number] [place] [address]- 3151 16 Sep, 2013 [facility] [address] [id number] [place] [address]- 8512 Sep, [facility] [address] [id number] [place] [address]- 9424 Sep, [facility] [address] [id number] [place] [address]- 9434 Sep, [facility] [address] [id number] [place] [address] Aug, [facility] [place] [facility] [address] [id number] [place] [address] Aug, [facility] [place] [facility] [address] [id number] [place] [address] Aug, [facility] [place] [facility] [address] [id number] [place] [address] Aug, [facility] [place] [facility] [address] [id number] [address] Jul, [facility] [id number] [address] Jul, [facility] [id number] [address] Jun, [facility] [id number] [address] Jun, [facility] [id number] [address] Mar, [facility] [id number] [address] January, [facility] [id number] [address] Dec, [facility] [id number] [address] Dec, [facility] [id number] [address] Nov, [facility] [id number] [address] Nov, [facility] [id number] [address] Oct, [facility] [id number] [address] January, [facility] [id number] [address] Dec, [facility] [id number] [address] Sep, IMMUNIZATIONS No Known Immunizations SOCIAL HISTORY Never Assessed REASON FOR VISIT Tramadol and Diazepam- 07/28 PLAN OF CARE VITAL SIGNS MEDICATIONS Medication [...]
--- OUTSIDE RECORDS SUMMARY | 2018-08-12 07:19 | XMS REPORT ---
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 Role Phone JOHANNY KINNEY Unavailable PROBLEMS Type Condition ICD9-CM Code YCF29-MC Code Onset Dates Condition Status SNOMED Code Problem Other chronic pain G89.29 Active 76156957 Problem Cervical disc disease M50.90 Active 905121272 Problem Neck pain M54.2 Active 54019098 Problem Right maxillary sinusitis J32.0 Active 28620690 Problem Sinusitis chronic, frontal J32.1 Active 09629472 Problem Anxiety disorder, unspecified F41.9 Active 942003834 Problem Gastroesophageal reflux disease, esophagitis presence not specified K21.9 Active 406879851 Problem Prediabetes R73.03 Active 604126335 Problem Mixed hyperlipidemia E78.2 Active 187900961 Problem Sciatica M54.30 Active 64764173 Problem PVCs (premature ventricular contractions) I49.3 Active 89940086 Problem Reactive depression F32.9 Active 75004340 Problem Hypertension I10 Active 12189018 Problem Lumbago with sciatica, right side M54.41 Active 017846650 ALLERGIES No Information ENCOUNTERS Encounter Location Date Diagnosis [facility] [id number] [place] [address] 60500- 5687 Nov, [facility] [id number] [place] [address] 82349 -0500 Nov, Right maxillary sinusitis J32.0 [facility] [id number] [place] [address] 13024- 9638 Nov, Low back pain M54.5 [facility] [id number] [place] [address] 19309 -1210 Oct, Sinusitis chronic, frontal J32.1 [facility] [id number] [place] [address] 10290- 3403 Oct, Neck pain M54.2 [facility] [address] 77449- 7784 Sep, Low back pain M54.5 [facility] [address] 83941- 7942 Sep, Neck pain M54.2 [facility] [address] 62721- 9488 Sep, Lumbago with sciatica, right side M54.41 ; Hypertension I10 ; Bronchitis J40 and Anxiety disorder, unspecified F41.9 [facility] [address] 96602- 0506 Aug, Neck pain M54.2 and Low back pain M54.5 [facility] [address] 26263- 6107 Jul, Neck pain M54.2 and Low back pain M54.5 [facility] [address] 08923- 7609 Jul, Neck pain M54.2 [facility] [id number] [place] [address] 30813- 4590 Jun, Low back pain M54.5 and Neck pain M54.2 [facility] [address] 98445- 8251 22 May, 2017 Low back pain M54.5 and Neck pain M54.2 [facility] [address] 29426- 6011 May, [facility] [id number] [place] [address] 51727 -6528 14 May, 2017 Bronchitis J40 [facility] [address] 70753- 9739 Apr, Hyperglycemia R73.9 [facility] [id number] [place] [address] 75876- 1744 Apr, Hyperglycemia R73.9 [facility] [id number] [place] [address] 77629- 1225 Apr, Gastroesophageal reflux disease, esophagitis presence not specified K21.9 ; Mixed hyperlipidemia E78.2 ; Neck pain M54.2 and PVCs ( premature ventricular contractions) I49.3 [facility] [address] 23533- 1872 Mar, Low back pain M54.5 [facility] [address] 41033- 6372 Feb, Low back pain M54.5 and Gastroesophageal reflux disease, esophagitis presence not specified K21.9 [facility] [id number] [place] [address] 22850- 2871 January, Dyspnea on exertion R06.09 [facility] [id number] [place] [address] 87619- 7219 January, Hypertension I10 [facility] [address] 96311- 6205 January, [facility] [id number] [place] [address] 92870- 4551 January, Low back pain M54.5 [facility] [id number] [place] [address] 80145- 7457 January, Low back pain M54.5 [facility] [id number] [place] [address] 73180- 7891 January, Gastroesophageal reflux disease, esophagitis presence not specified K21.9 ; Lumbago with sciatica, right side M54.41 and Dyspnea on exertion R06.09 [facility] [id number] [place] [address] 60745- 7535 Nov, [facility] [address] 27362- 9475 Nov, [facility] [address] 42717- 9689 Nov, Gastroesophageal reflux disease, esophagitis presence not specified K21.9 and Bronchitis J40 [facility] [address] 86967- 5522 15 Oct, 2016 Low back pain M54.5 and Anxiety disorder, unspecified F41.9 [facility] [address] 40239- 7094 10 Oct, 2016 Bronchitis J40 ; Hypertension I10 ; Sciatica M54.30 and Paresthesias R20.2 [facility] [address] [id number] Sep, Dental examination Z01.20 [facility] [address] [id number] Sep, Dental examination Z01.20 and Dental caries K02.9 [facility] [address] 02010- 0604 Aug, [place] [address] 85279- 5913 Jul, Low back pain M54.5 and Anxiety disorder, unspecified F41.9 [place] [address] 28585- 7142 Jul, [facility] [address] 99278- 0811 Jun, Lumbago with sciatica, right side M54.41 ; Cervical disc disease M50.90 and Gastroesophageal reflux disease, esophagitis presence not specified K21.9 [facility] [address] 39297- 4051 Jun, [facility] [address] 68787- 1368 Jun, [place] [id number] [place] [address]- 0405 Jun, [facility] [id number] [place] [address], [place] [address]- 6187 Jun, [facility] [id number] [place] [address]- 2419 Jun, [facility] [id number] [place] [address], [place] [address]- 1740 May, [facility] [address] [facility] [id number] [place] [address], [place] [address]- 7675 May, [facility] [id number] [place] [address], [place] [address]- 3920 May, [facility] [id number] [place] [address], [place] [address]- 6235 Apr, [facility] [id number] [place] [address], [place] [address]- 5642 Apr, [facility] [id number] [place] [address], [place] [address]- 7597 Apr, [facility] [address] [place] [address], [place] [address]- 6285 Apr, Cervical disc disease M50.90 [facility] [address] [address]- 9278 Apr, [facility] [address] [address]- 9368 Apr, Neck pain M54.2 ; Hypertension I10 and Reactive depression F32.9 [facility] [id number] [address]- 2473 Mar, [facility] [id number] [place] [address]- 2871 Mar, [facility] [address] [address]- 1808 Mar, [facility] [id number] [place] [address] 56704- 2847 Feb, Sciatica M54.30 [facility] [address] 89581- 4148 Feb, Paresthesias R20.2 ; Sciatica M54.30 and Reactive depression F32.9 [place] [address] 69816- 3791 Feb, [facility] [address] 34681- 2048 January, [place] [address] 62750- 8304 January, Hyperlipemia, mixed E78.2 ; Other abnormalities of heart beat R00.8 and Anxiety F41.9 [place] [address] 14369- 8594 January, [facility] [address] 32289- 2301 January, Low back pain M54.5 [place] [address] 91119- 9864 January, Anxiety disorder, unspecified F41.9 [facility] [id number] [place] [address] 96800- 7035 Dec, Ventricular bigeminy I49.9 [facility] [id number] [place] [address] 93746- 3834 Dec, [facility] [address] 21315- 6888 Dec, Low back pain M54.5 [facility] [id number] [place] [address] 56931- 2741 Dec, Sciatica M54.30 [facility] [id number] [place] [address] 53177- 1350 Nov, Major depressive disorder, single episode, unspecified F32.9 [facility] [id number] [place] [address] 50656- 6843 Nov, Sciatica M54.30 [facility] [id number] [place] [address] 25646- 5708 Nov, [facility] [id number] [place] [address] 97695- 3500 Nov, [facility] [id number] [place] [address] 26370- 9968 Nov, Anxiety disorder, unspecified F41.9 [facility] [id number] [place] [address] 10928- 2551 Nov, [facility] [id number] [place] [address] 77730- 4398 Nov, Depressed F32.9 and Anxiety F41.9 [place] [id number] [place] [address] 56389- 3514 Nov, Lumbago 724.2 ; Sciatica M54.30 and PVCs (premature ventricular contractions) I49.3 [facility] [id number] [place] [address] 04981- 9265 Oct, [facility] [id number] [place] [address] 68326- 2370 Oct, [facility] [id number] [place] [address] 49895- 7889 Oct, Sciatica M54.30 and Hypertension I10 [facility] [id number] [place] [address] 69272- 6818 Oct, [facility] [id number] [place] [address] 62682- 1100 Oct, [facility] [id number] [place] [address] 67807- 0289 Oct, [facility] [address] [address]- 9956 Sep, [facility] [id number] [place] [address] 47278- 4489 Sep, [facility] [address] [address]- 9533 Sep, [facility] [id number] [place] [address] 41631- 4727 Sep, Ventricular arrhythmia I49.9 [facility] [id number] [place] [address] 99088- 1538 Sep, Ventricular bigeminy I49.9 and Hypertension I10 [facility] [address] [place] [address] 11982- 1048 Sep, Lumbago M54.5 and Ventricular bigeminy I49.9 [facility] [address] [address]- 1225 Sep, [facility] [id number] [place] [address] 78259- 7281 Aug, [facility] [address] [address]- 1056 Aug, [facility] [address] [address]- 6422 Aug, [facility] [address] [address]- 0003 Aug, [facility] [address] [address]- 9181 Aug, [facility] [address] [address]- 6527 Jul, [facility] [address] [address]- 6278 Jun, [facility] [id number] [address]- 7520 14 May, 2015 [facility] [address] [address]- 6671 May, [facility] [address] 2532 May, Lumbago 724.2 and Depressive disorder, not elsewhere classified 311 [facility] [address] [address]- 0987 Apr, UTI (urinary tract infection) 599.0 [facility] [address] 4665 Apr, UTI (urinary tract infection) 599.0 and Depression 311 [facility] [address] [address]- 4564 Mar, [facility] [address] [address]- 0787 Mar, [facility] [id number] [address]- 1040 Mar, [facility] [address] [address]- 4842 Mar, Unspecified essential hypertension 401.9 ; Lumbago 724.2 and Anxiety 300.00 [facility] [address] [address]- 9232 Mar, [facility] [id number] [address]- 6692 Feb, [facility] [id number] [address]- 6688 Feb, [facility] [id number] [address]- 9848 January, [facility] [id number] [address]- 2285 Dec, [facility] [address] [id number] [place] [address]- 0566 Dec, [facility] [place] [facility] [address] [id number] [place] [address]- 7698 Oct, 2014 [facility] [place] [facility] [address] [id number] [place] [address]- 8331 Oct, 2014 [facility] [place] [facility] [address] [id number] [place] [address]- 3655 Oct, [facility] [place] [facility] [address] [id number] [place] [address]- 7136 Oct, [facility] [place] [facility] [address] [id number] [place] [address]- 4962 Sep, [facility] [place] [facility] [address] [id number] [place] [address]- 1634 Sep, [facility] [place] [facility] [address] [id number] [place] [address]- 2821 Sep, [facility] [place] [facility] [address] [id number] [place] [address]- 1454 Sep, [facility] [place] [facility] [address] [id number] [place] [address]- 0694 Aug, [facility] [place] [facility] [address] [id number] [place] [address]- 2055 Aug, [facility] [place] [facility] [address] [id number] [place] [address]- 0899 Jul, [facility] [place] [facility] [address] [id number] [place] [address]- 2552 Jul, [facility] [place] [facility] [address] [id number] [place] [address]- 2048 Jun, [facility] [place] [facility] [address] [id number] [place] [address]- 1243 Jun, [facility] [place] [facility] [address] [id number] [place] [address]- 6003 Jun, [facility] [place] [facility] [address] [id number] [place] [address]- 1062 Jun, [facility] [place] [facility] [address] [id number] [place] 8930 Jun, [facility] [place] [facility] [address] [id number] [place] [address]- 2847 Jun, [facility] [place] [facility] [address] [id number] [place] [address]- 2205 May, [facility] [place] [facility] [address] [id number] [place] [address]- 1370 May, [facility] [place] [facility] [address] [id number] [place] [address]- 1545 Apr, [facility] [place] [facility] [address] [id number] [place] [address]- 6043 Apr, [facility] [place] [facility] [address] [id number] [place] [address]- 2987 Apr, [facility] [place] [facility] [address] [id number] [place] [address]- 1038 Apr, [facility] [place] [facility] [address] [id number] [place] [address]- 8210 Mar, [facility] [place] [facility] [address] [id number] [place] [address]- 8059 Mar, [facility] [place] [facility] [address] [id number] [place] [address]- 2075 Mar, [facility] [place] [facility] [address] [id number] [place] [address]- 8638 Mar, [facility] [place] [facility] [address] [id number] [place] [address]- 3520 Mar, [facility] [place] [facility] [address] [id number] [place] [address]- 8437 Mar, [facility] [place] [facility] [address] [id number] [place] [address]- 8568 Mar, [facility] [address] [id number] [place] [address]- 0871 Mar, [facility] [address] [id number] [place] [address]- 1242 Feb, [facility] [address] [id number] [place] [address]- 1382 Feb, [facility] [address] [id number] [place] [address]- 3732 January, [facility] [address] [id number] [place] [address]- 8820 January, [facility] [address] [id number] [place] [address]- 3791 January, [facility] [address] [id number] [place] [address]- 5103 January, [facility] [address] [id number] [place] [address]- 7985 Dec, [facility] [place] [facility] [address] [id number] [place] [address]- 8752 Dec, [facility] [address] [id number] [place] [address]- 4619 Dec, [facility] [place] [facility] [address] [id number] [place] [address]- 0244 Dec, [facility] [place] [facility] [address] [id number] [place] [address]- 2445 Nov, [facility] [place] [facility] [address] [id number] [place] [address]- 3140 Nov, [facility] [place] [facility] [address] [id number] [place] [address]- 3855 Sep, [facility] [place] [facility] [address] [id number] [place] [address]- 3216 Sep, [facility] [address] [id number] [place] [address]- 1492 Sep, [facility] [place] [facility] [address] [id number] [place] [address]- 3680 Sep, [facility] [place] [facility] [address] [id number] [place] [address]- 6724 Sep, [facility] [place] [facility] [address] [id number] [place] [address]- 6518 Sep, [facility] [place] [facility] [address] [id number] [place] [address]- 6953 Aug, [facility] [place] [facility] [address] [id number] [place] [address]- 1184 Aug, [facility] [place] [facility] [address] [id number] [place] [address]- 8540 Aug, [facility] [place] [facility] [address] [id number] [place] [address]- 9033 Aug, [facility] [place] [facility] [address] [id number] [place] [address]- 4794 Jul, [facility] [place] [facility] [address] [id number] [address]- 1846 Jul, [facility] [place] [facility] [address] [id number], [place] [address]- 7067 Jun, [facility] [place] [facility] [address] [id number], [place] [address]- 8715 Jun, [facility] [place] [facility] [address] [id number] [place] [address]- 3991 Mar, [facility] [place] [facility] [address] [id number] [place] [address]- 4375 January, [facility] [place] [facility] [address] [id number], [place] [address]- 7325 Dec, [facility] [place] [facility] [address] [id number], [place] [address]- 2546 Dec, [facility] [address] [facility] [id number], [place] [address]- 2546 Nov, [facility] [id number] [address]- 2546 Nov, [facility] [id number] [address]- 2546 Oct, [facility] [id number] [address]- 2546 January, [facility] [id number] [address]- 9636 Dec, [facility] [id number] [address] 2546 Sep, IMMUNIZATIONS No Known Immunizations SOCIAL HISTORY Never Assessed REASON FOR VISIT hyperglycemia PLAN OF CARE VITAL SIGNS MEDICATIONS Unknown [...]
--- OUTSIDE RECORDS SUMMARY | 2018-08-12 07:19 | XMS REPORT ---
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 Role Phone JOHANNY KINNEY Unavailable PROBLEMS Type Condition ICD9-CM Code MQT55-QT Code Onset Dates Condition Status SNOMED Code Problem Reactive depression F32.9 Active 89248229 Problem Other chronic pain G89.29 Active 69818992 Problem Lumbago with sciatica, right side M54.41 Active 054867395 Problem Hypertension I10 Active 36040374 Problem Sciatica M54.30 Active 46706623 Problem PVCs (premature ventricular contractions) I49.3 Active 11331596 Problem Prediabetes R73.03 Active 005833635 Problem Mixed hyperlipidemia E78.2 Active 849805146 Problem Cervical disc disease M50.90 Active 561808958 Problem Neck pain M54.2 Active 32597658 Problem Anxiety disorder, unspecified F41.9 Active 395681822 Problem Gastroesophageal reflux disease, esophagitis presence not specified K21.9 Active 057427796 ALLERGIES No Known Allergies SOCIAL HISTORY Never Assessed PLAN OF CARE Activity Details Follow Up 3 Months Reason: VITAL SIGNS Height 62 in 2017-01-10 Weight 159.8 lbs 2017-01-10 Temperature 98.1 degrees Fahrenheit 2017-01-10 Heart Rate 100 bpm 2017-01-10 Respiratory Rate 20 2017-01-10 Oximetry 96 % 2017-01-10 BMI 29.22 kg/m2 2017-01-10 Blood pressure systolic 120 mmHg 2017-01-10 Blood pressure diastolic 78 mmHg 2017-01-10 MEDICATIONS Medication Instructions Dosage Frequency Start Date End Date Duration Status Zoloft 50 mg Orally Once a day 1 tablet 24h Sep, Active Lipitor 10 MG Orally Once a day 1 tablet 24h Active Cyclobenzaprine HCl 10 mg Orally Three times a day 1 tablet 8h 10 Active Tramadol HCl 50MG Orally, each fill must last 30 days every 6 hours 1 tablet 6h Active Gabapentin 600 MG Orally Three times a day 1 capsule 8h Oct, Active Diazepam 5MG Orally, each fill must last 30 days Twice a day 1 tablet as needed 12h Active Protonix 40 mg Orally Once a day 1 tablet 24h Nov, 30 day(s) Active Metoprolol Succinate ER 50 MG Orally Once a day 1 tablet 24h 14 Sep, 2015 Active RESULTS No Results PROCEDURES Procedure Date Ordered Result Body Site MEASURE BLOOD OXYGEN LEVEL January 10, 2017 IMMUNIZATIONS No Known Immunizations MEDICAL (GENERAL) HISTORY [...]
--- OUTSIDE RECORDS SUMMARY | 2018-08-12 07:20 | XMS REPORT ---
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 Role Phone JOHANNY KINNEY Unavailable PROBLEMS Type Condition ICD9-CM Code [id number] Code Onset Dates Condition Status SNOMED Code Problem Reactive depression F32.9 Active 40422919 Problem Other chronic pain G89.29 Active 45707799 Problem Lumbago with sciatica, right side M54.41 Active 933971235 Problem Hypertension I10 Active 75612173 Problem Sciatica M54.30 Active 04159974 Problem PVCs (premature ventricular contractions) I49.3 Active 48222693 Problem Prediabetes R73.03 Active 640308289 Problem Mixed hyperlipidemia E78.2 Active 946562916 Problem Cervical disc disease M50.90 Active 090680381 Problem Neck pain M54.2 Active 19535175 Problem Anxiety disorder, unspecified F41.9 Active 382022726 Problem Gastroesophageal reflux disease, esophagitis presence not specified K21.9 Active 066830676 ALLERGIES No Information SOCIAL HISTORY Never Assessed [...]
--- OUTSIDE RECORDS SUMMARY | 2018-08-12 07:20 | XMS REPORT ---
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 Name Role Phone JOHANNY KINNEY Unavailable PROBLEMS Type Condition ICD9-CM Code [id number] Code Onset Dates Condition Status SNOMED Code Problem Neck pain M54.2 Active 34695280 Problem Gastroesophageal reflux disease, esophagitis presence not specified K21.9 Active 319339140 Problem Cervical disc disease M50.90 Active 053933156 Problem Chronic maxillary sinusitis J32.0 Active 77374219 Problem Right maxillary sinusitis J32.0 Active 64817000 Problem Mixed hyperlipidemia E78.2 Active 793666681 Problem Anxiety disorder, unspecified F41.9 Active 716503170 Problem Sinusitis chronic, frontal J32.1 Active 25537565 Problem Prediabetes R73.03 Active 572772417 Problem PVCs (premature ventricular contractions) I49.3 Active 83462661 Problem Reactive depression F32.9 Active 51477172 Problem Hypertension I10 Active 22715145 Problem Lumbago with sciatica, right side M54.41 Active 985579481 Problem Sciatica M54.30 Active 09466744 Problem Other chronic pain G89.29 Active [id number] ALLERGIES No Information ENCOUNTERS Encounter Location Date Diagnosis [facility] [id number], [place] [address] Feb, Chronic maxillary sinusitis J32.0 [facility] [id number] [place] [address] 95547- 8321 14 Feb, 2018 Low back pain M54.5 [facility] [id number] [place] [address] 54587- 5588 06 Feb, 2018 Low back pain M54.5 [facility] [id number] [place] [address] 87753- 7566 Feb, Low back pain M54.5 [facility] [id number] [place] [address] 62281- 6788 January, [facility] [address] [address]507- 1612 January, Sinusitis chronic, frontal J32.1 [facility] [address] 29243- [address]95 January, Lumbago with sciatica, right side M54.41 ; Cervical disc disease M50.90 ; Hypertension I10 and Gastroesophageal reflux disease, esophagitis presence not specified K21.9 [facility] [address] [address]26- 8898 Dec, Low back pain M54.5 [facility] [address] 98248- 5225 Dec, Low back pain M54.5 [facility] [address] 48031- 0978 Nov, [facility] [address] [address] Nov, Right maxillary sinusitis J32.0 [facility] [address] 74363- 0301 Nov, Low back pain M54.5 [facility] [id number] [place] [address] 24531 -8651 Oct, Sinusitis chronic, frontal J32.1 [facility] [id number] [place] [address] 82508- 7121 Oct, Neck pain M54.2 [facility] [address] 16892- 5180 Sep, Low back pain M54.5 [facility] [address] 98178- 8715 Sep, Neck pain M54.2 [facility] [address] 08196- 0906 Sep, Lumbago with sciatica, right side M54.41 ; Hypertension I10 ; Bronchitis J40 and Anxiety disorder, unspecified F41.9 [facility] [address] 16551- 1600 Aug, Neck pain M54.2 and Low back pain M54.5 [facility] [address] 64559- 6326 Jul, Neck pain M54.2 and Low back pain M54.5 [facility] [facility] [address] 66625- 4028 Jul, Neck pain M54.2 [facility] [address] 92384- 4710 Jun, Low back pain M54.5 and Neck pain M54.2 [facility] [facility] [address] 83884- 8350 May, Low back pain M54.5 and Neck pain M54.2 [place] [address] 56350- 8904 May, [facility] [address] 06324 -7942 14 May, 2017 Bronchitis J40 [facility] [address] 65389- 0353 Apr, Hyperglycemia R73.9 [place] [facility] [address] 94872- 2498 Apr, Hyperglycemia R73.9 [facility] [address] 96604- 9804 Apr, Gastroesophageal reflux disease, esophagitis presence not specified K21.9 ; Mixed hyperlipidemia E78.2 ; Neck pain M54.2 and PVCs ( premature ventricular contractions) I49.3 [facility] [id number] [place] [address] 56408- 8673 Mar, Low back pain M54.5 [facility] [id number] [place] [address] 28782- 0161 Feb, Low back pain M54.5 and Gastroesophageal reflux disease, esophagitis presence not specified K21.9 [facility] [address] 38780- 0640 January, Dyspnea on exertion R06.09 [facility] [address] 28291- 5021 January, Hypertension I10 [facility] [address] 83173- 2856 January, [facility] [address] 57290- 7964 January, Low back pain M54.5 [facility] [id number] [place] [address] 36570- 3052 January, Low back pain M54.5 [facility] [id number] [place] [address] 57054- 2284 January, Gastroesophageal reflux disease, esophagitis presence not specified K21.9 ; Lumbago with sciatica, right side M54.41 and Dyspnea on exertion R06.09 [facility] [id number] [place] [address] 51262- 0359 Nov, [facility] [id number] [place] [address] 28234- 3762 Nov, [facility] [address] 80189- 7604 Nov, Gastroesophageal reflux disease, esophagitis presence not specified K21.9 and Bronchitis J40 [facility] [id number] [place] [address] 38707- 0543 Oct, Low back pain M54.5 and Anxiety disorder, unspecified F41.9 [facility] [id number] [place] [address] 15545- 9810 10 Oct, 2016 Bronchitis J40 ; Hypertension I10 ; Sciatica M54.30 and Paresthesias R20.2 [facility] [address] [place] [address] [id number] Sep, Dental examination Z01.20 [facility] [id number] [place] [address] [id number] Sep, Dental examination Z01.20 and Dental caries K02.9 [facility] [id number] [place] [address] 89601- 6818 Aug, [facility] [id number] [place] [address] 03631- 8134 Jul, Low back pain M54.5 and Anxiety disorder, unspecified F41.9 [facility] [id number] [place] [address] 99449- 7846 Jul, [facility] [id number] [place] [address] 42535- 4291 Jun, Lumbago with sciatica, right side M54.41 ; Cervical disc disease M50.90 and Gastroesophageal reflux disease, esophagitis presence not specified K21.9 [facility] [id number] [place] [address] 97087- 5466 Jun, [facility] [id number] [place] [address] 14856- 0620 Jun, [facility] [id number] [place] [address] 33721- 5628 Jun, [facility] [id number] [place] [address] 91341- 2160 Jun, [facility] [id number] [place] [address] 53154- 8773 Jun, [facility] [address] [place] [address] 0831 May, [facility] [id number] [place] [address] 69525- 1932 May, [facility] [id number] [place] [address] 08473- 7318 May, [facility] [id number] [place] [address] 44064- 9334 Apr, [facility] [id number] [place] [address] 97091- 1520 Apr, [facility] [id number] [place] [address] 08235- 5071 Apr, [facility] [id number] [place] [address] 97610- 4800 Apr, Cervical disc disease M50.90 [facility] [id number] [place] [address] 90522- 5768 Apr, [facility] [id number] [place] [address] 50387- 2843 Apr, Neck pain M54.2 ; Hypertension I10 and Reactive depression F32.9 [facility] [id number] [place] [address] 10709- 6862 Mar, [facility] [id number] [place] [address] 31477- 9916 Mar, [facility] [id number] [place] [address] 31835- 2891 Mar, [facility] [id number] [place] [address] 88022- 7491 Feb, Sciatica M54.30 [facility] [id number] [place] [address] 22833- 8596 Feb, Paresthesias R20.2 ; Sciatica M54.30 and Reactive depression F32.9 [facility] [id number] [place] [address] 47121- 6589 Feb, [facility] [id number] [place] [address] 20074- 5161 January, [facility] [address] 80795- 0503 January, Hyperlipemia, mixed E78.2 ; Other abnormalities of heart beat R00.8 and Anxiety F41.9 [facility] [address] 89271- 1322 January, [facility] [address] 45935- 4006 January, Low back pain M54.5 [facility] [id number] [place] [address] 53095- 6622 January, Anxiety disorder, unspecified F41.9 [facility] [address] 46482- 2267 18 Dec, 2015 Ventricular bigeminy I49.9 [facility] [id number] [place] [address] 17869- 5985 Dec, [facility] [id number] [place] [address] 26155- 8552 Dec, Low back pain M54.5 [facility] [id number] [place] [address] 30150- 6596 Dec, Sciatica M54.30 [facility] [id number] [place] [address] 14870- 8509 Nov, Major depressive disorder, single episode, unspecified F32.9 [facility] [address] 04317- 6423 Nov, Sciatica M54.30 [facility] [id number] [place] [address] 41259- 7036 Nov, [facility] [id number] [place] [address] 54736- 0573 Nov, [facility] [id number] [place] [address] 75193- 1374 Nov, Anxiety disorder, unspecified F41.9 [facility] [id number] [place] [address] 08848- 3029 Nov, [facility] [id number] [place] [address] 11403- 6022 Nov, Depressed F32.9 and Anxiety F41.9 [facility] [id number] [place] [address] 35474- 4294 Nov, Lumbago 724.2 ; Sciatica M54.30 and PVCs (premature ventricular contractions) I49.3 [facility] [id number] [place] [address] 57801- 6439 Oct, [facility] [id number] [place] [address] 62692- 7611 Oct, [facility] [id number] [place] [address] 61026- 7128 Oct, Sciatica M54.30 and Hypertension I10 [facility] [id number] [place] [address] 99440- 6444 Oct, [facility] [id number] [place] [address] 73418- 7742 Oct, [facility] [id number] [place] [address] 05394- 3089 Oct, [facility] [id number] [place] [address] 40163- 6197 Sep, [facility] [id number] [place] [address] 75973- 7571 Sep, [facility] [id number] [place] [address] 12030- 5840 Sep, [facility] [id number] [place] [address] 02819- 7100 Sep, Ventricular arrhythmia I49.9 [facility] [id number] [place] [address] 74769- 0579 Sep, Ventricular bigeminy I49.9 and Hypertension I10 [facility] [id number] [place] [address] 09566- 7968 Sep, Lumbago M54.5 and Ventricular bigeminy I49.9 [facility] [id number] [place] [address] 68560- 6644 Sep, [facility] [id number] [place] [address] 79736- 7128 Aug, [facility] [id number] [place] [address] 54168- 6710 Aug, [facility] [id number] [place] [address] 84532- 0549 Aug, [facility] [id number] [place] [address] 22907- 1211 Aug, [facility] [id number] [place] [address] 92510- 0431 Aug, [facility] [id number] [place] [address] 73112- 3880 Jul, [facility] [id number] [place] [address] 29595- 7484 Jun, [facility] [id number] [place] [address] 49568- 8000 May, [facility] [id number] [place] [address] 99897- 8770 May, [facility] [address] [address]- 1228 May, Lumbago 724.2 and Depressive disorder, not elsewhere classified 311 [facility] [address], [place] [address]- 6717 Apr, UTI (urinary tract infection) 599.0 [facility] [address] 4156 Apr, UTI (urinary tract infection) 599.0 and Depression 311 [facility] [address] [address]- 4907 Mar, [facility] [address], [place] [address]- 1953 Mar, [facility] [address], [place] [address]- 6077 Mar, [facility] [address] [address]- 1004 Mar, Unspecified essential hypertension 401.9 ; Lumbago 724.2 and Anxiety 300.00 [facility] [address], [place] [address]- 8349 Mar, [facility] [address], [place] [address]- 1787 Feb, [facility] [address] [address]- 0388 Feb, [facility] [id number], [place] [address]- 8956 January, [facility] [id number] [address]- 3474 Dec, [facility] [id number] [address]- 3616 Dec, [facility] [id number]- 1056 Oct, [facility] [id number] 9092 Oct, [facility] [address] [place] [address]- 3310 Oct, 2014 [facility] [place] [facility] [address] [id number] [place] [address]- 7003 Oct, [facility] [place] [facility] [address] [id number] [place] [address]- 7196 Sep, [facility] [place] [facility] [address] [id number] [place] [address]- 0731 Sep, [facility] [place] [facility] [address] [id number] [place] [address]- 6001 Sep, [facility] [place] [facility] [address] [id number] [place] [address]- 2966 Sep, [facility] [place] [facility] [address] [id number] [place] [address]- 7738 Aug, [facility] [place] [facility] [address] [id number] [place] [address]- 2013 Aug, [facility] [place] [facility] [address] [id number] [place] [address]- 5423 Jul, [facility] [place] [facility] [address] [id number] [place] [address]- 8622 Jul, [facility] [place] [facility] [address] [facility] [id number] [place] [address]- 3965 Jun, [facility] [place] [facility] [address] [id number] [place] [address]- 1110 Jun, [facility] [place] [facility] [address] [id number] [place] [address]- 2777 Jun, [facility] [place] [facility] [address] [id number] [place] 8069 Jun, [facility] [place] [facility] [address] [id number] [place] [address]- 7972 Jun, [facility] [place] [facility] [address] [id number] [place] 2675 Jun, [facility] [place] [facility] [address] [id number] [place] [address]- 1239 May, [facility] [place] [facility] [address] [id number] [place] [address]- 9019 May, [facility] [place] [facility] [address] [id number] [place] [address]- 2564 Apr, [facility] [place] [facility] [address] [id number] [place] [address]- 7429 Apr, [facility] [place] [facility] [address] [id number] [place] [address]- 6678 Apr, [facility] [place] [facility] [address] [id number] [place] [address]- 5036 Apr, [facility] [place] [facility] [address] [id number] [place] [address]- 2114 Mar, [facility] [place] [facility] [address] [id number] [place] [address]- 9995 Mar, [facility] [place] [facility] [address] [id number] [place] [address]- 3979 Mar, [facility] [place] [facility] [address] [id number] [place] [address]- 4687 Mar, [facility] [place] [facility] [address] [id number] [place] [address]- 9786 Mar, [facility] [place] [facility] [address] [id number] [place] [address]- 6938 Mar, [facility] [place] [facility] [address] [id number] [place] [address]- 3792 Mar, [facility] [place] [facility] [address] [id number] [place] [address]- 5958 Mar, [facility] [place] [facility] [address] [id number] [place] [address]- 7967 Feb, [facility] [place] [facility] [address] [id number] [place] [address]- 0795 Feb, [facility] [place] [facility] [address] [id number] [place] [address]- 7903 January, [facility] [place] [facility] [address] [id number] [place] [address]- 3098 January, [facility] [place] [facility] [address] [id number] [place] 8149 January, [facility] [place] [facility] [address] [id number] [place] [address]- 9193 January, [facility] [place] [facility] [address] [id number] [place] [address]- 7001 Dec, [facility] [place] [facility] [address] [id number] [place] [address]- 3064 Dec, [facility] [place] [facility] [address] [id number] [place] [address]- 8819 Dec, [facility] [place] [facility] [address] [id number] [place] [address]- 3597 Dec, [facility] [place] [facility] [address] [id number] [place] [address]- 3824 Nov, [facility] [place] [facility] [address] [id number] [place] [address]- 0023 Nov, [facility] [place] [facility] [address] [id number] [place] [address]- 3743 Sep, [facility] [place] [facility] [address] [id number] [place] [address]- 7697 Sep, [facility] [place] [facility] [address] [id number] [place] [address]- 6063 Sep, [facility] [place] [facility] [address] [id number] [place] [address] Sep, [facility] [place] [facility] [address] [id number] [place] [address] Sep, [facility] [place] [facility] [address] [id number] [place] [address] Sep, [facility] [address] [id number] [place] [address] Aug, [facility] [address] [id number] [place] [address] Aug, [facility] [address] [id number] [place] [address] Aug, [facility] [address] [id number] [place] [address] Aug, [facility] [address] [id number] [place] [address] Jul, [facility] [address] [id number] [place] [address] Jul, [facility] [address] [id number] [place] [address] Jun, [facility] [address] [id number] [place] [address] Jun, [facility] [address] [id number] [place] [address] Mar, [facility] [address] [id number] [place] [address] January, [facility] [address] [id number] [place] [address] Dec, [facility] [address] [id number] [place] [address] Dec, [facility] [place] [facility] [address] [id number] [place] [address] Nov, [facility] [place] [facility] [address] [id number] [place] [address] Nov, [facility] [address] [id number] [place] [address] Oct, [facility] [address] [facility] [id number] [place] [address] January, [facility] [address] [facility] [id number] [address] Dec, [facility] [address] [facility] [id number] [place] [address] Sep, IMMUNIZATIONS No Known Immunizations SOCIAL HISTORY Never Assessed REASON FOR VISIT Tramadol 10/27 PLAN OF CARE VITAL SIGNS MEDICATIONS Medication [...]
--- OUTSIDE RECORDS SUMMARY | 2018-08-12 07:20 | XMS REPORT ---
Author Author JOHANNY KINNEY Organization [facility] Address [address] [place] [address] Care Team Providers Care President And Chief Executive Officer Name Role Phone JOHANNY KINNEY Unavailable PROBLEMS Type Condition ICD9-CM Code TPF03-WL Code Onset Dates Condition Status SNOMED Code Problem Other chronic pain G89.29 Active 12909657 Problem Cervical disc disease M50.90 Active 021961174 Problem Neck pain M54.2 Active 19961038 Problem Right maxillary sinusitis J32.0 Active 20861227 Problem Sinusitis chronic, frontal J32.1 Active 31140190 Problem Anxiety disorder, unspecified F41.9 Active 058042489 Problem Gastroesophageal reflux disease, esophagitis presence not specified K21.9 Active 483990487 Problem Prediabetes R73.03 Active 962521660 Problem Mixed hyperlipidemia E78.2 Active 952086423 Problem Sciatica M54.30 Active 17309118 Problem PVCs (premature ventricular contractions) I49.3 Active 89031548 Problem Reactive depression F32.9 Active 85914341 Problem Hypertension I10 Active 38454470 Problem Lumbago with sciatica, right side M54.41 Active 154232906 ALLERGIES No Information ENCOUNTERS Encounter Location Date Diagnosis [place] [id number] [place] [address] 56767- 9488 Feb, Low back pain M54.5 [facility] [id number] [address] 5373 Feb, Low back pain M54.5 [facility] [id number] [place] [address] 15028- 4163 January, [facility] [id number] [place] [address] 26505- 1641 January, Sinusitis chronic, frontal J32.1 [place] [address] [place] [id number] [place] [address] 59922- 9388 January, Lumbago with sciatica, right side M54.41 ; Cervical disc disease M50.90 ; Hypertension I10 and Gastroesophageal reflux disease, esophagitis presence not specified K21.9 [facility] [id number] [place] [address] 48911- 9633 Dec, Low back pain M54.5 [facility] [address] 59341- 1545 Dec, Low back pain M54.5 [place] [address] 15302- 3246 Nov, [facility] [address] 33065 -6823 Nov, Right maxillary sinusitis J32.0 [place] [address] 85797- 4188 Nov, Low back pain M54.5 [facility] [id number] [place] [address] 86656 -7873 Oct, Sinusitis chronic, frontal J32.1 [place] [address] [address] [id number] [place] [address] 61801- 2099 Oct, Neck pain M54.2 [place] [address] [place] [address] [id number] [place] [address] 14819- 9626 Sep, Low back pain M54.5 [place] [address] [address] [id number] [place] [address] 60026- 5787 Sep, Neck pain M54.2 [place] [address] 66582- 7815 Sep, Lumbago with sciatica, right side M54.41 ; Hypertension I10 ; Bronchitis J40 and Anxiety disorder, unspecified F41.9 [facility] [id number] [place] [address] 87810- 2871 13 Aug, 2017 Neck pain M54.2 and Low back pain M54.5 [facility] [address] 79815- 6683 16 Jul, 2017 Neck pain M54.2 and Low back pain M54.5 [facility] [address] 45609- 7888 06 Jul, 2017 Neck pain M54.2 [facility] [address] 08936- 6773 Jun, Low back pain M54.5 and Neck pain M54.2 [place] [address] 40621- 8494 22 May, 2017 Low back pain M54.5 and Neck pain M54.2 [place] [address] 77486- 6343 21 May, 2017 [facility] [address] 62828 -5115 14 May, 2017 Bronchitis J40 [place] [address] 11712- 3078 11 Apr, 2017 Hyperglycemia R73.9 [place] [address] 01464- 5186 08 Apr, 2017 Hyperglycemia R73.9 [place] [address] 74164- 6009 07 Apr, 2017 Gastroesophageal reflux disease, esophagitis presence not specified K21.9 ; Mixed hyperlipidemia E78.2 ; Neck pain M54.2 and PVCs ( premature ventricular contractions) I49.3 [place] [address] 12159- 7884 Mar, Low back pain M54.5 [facility] [address] 69490- 9208 Feb, Low back pain M54.5 and Gastroesophageal reflux disease, esophagitis presence not specified K21.9 [facility] [id number] [place] [address] 22472- 2912 January, Dyspnea on exertion R06.09 [facility] [address] 42759- 0606 January, Hypertension I10 [facility] [address] 65763- 3435 January, [facility] [address] 71741- 3940 January, Low back pain M54.5 [place] [address] 33484- 5464 January, Low back pain M54.5 [facility] [address] 92739- 5087 January, Gastroesophageal reflux disease, esophagitis presence not specified K21.9 ; Lumbago with sciatica, right side M54.41 and Dyspnea on exertion R06.09 [facility] [address] 31040- 9048 Nov, [facility] [address] 74310- 0519 Nov, [facility] [address] 82314- 2012 Nov, Gastroesophageal reflux disease, esophagitis presence not specified K21.9 and Bronchitis J40 [facility] [address] [address] [id number] [place] [address] 29592- 8705 15 Oct, 2016 Low back pain M54.5 and Anxiety disorder, unspecified F41.9 [facility] [address] 28114- 4710 10 Oct, 2016 Bronchitis J40 ; Hypertension I10 ; Sciatica M54.30 and Paresthesias R20.2 [facility] [address] [id number] Sep, Dental examination Z01.20 [facility] [address] [id number] [id number] Sep, Dental examination Z01.20 and Dental caries K02.9 [facility] [address] [place] [id number] [place] [address] 433495- 2457 Aug, [facility] [address] [place] [address] [id number] [place] [address] 388563- 5686 Jul, Low back pain M54.5 and Anxiety disorder, unspecified F41.9 [facility] [address] [place] [address] [id number] [place] [address] 17263- 2162 Jul, [facility] [address] [place] [address] [id number] [place] [address] 913510- 1541 Jun, Lumbago with sciatica, right side M54.41 ; Cervical disc disease M50.90 and Gastroesophageal reflux disease, esophagitis presence not specified K21.9 [facility] [address] [id number] [place] [address] 03592- 1230 Jun, [facility] [address] [id number] [place] [address] 70134- 6683 Jun, [facility] [id number] [address]- 2337 Jun, [facility] [address] [address]- 7158 Jun, [facility] [id number] [place] [address] 69379- 3298 Jun, [facility] [address] [facility] [id number] [address]- 3142 23 May, 2016 [facility] [address] [place] [id number] 5838 16 May, 2016 [facility] [address] 5582 May, [facility] [id number] [address]- 2062 Apr, [facility] [address] [address] [id number] [place] [address] 38341- 8011 Apr, [facility] [address] [place] [address] [id number] [place] [address] 13743- 4651 Apr, [facility] [address] [place] [address] [id number] [place] [address] 16740- 0128 Apr, Cervical disc disease M50.90 [facility] [address] [place] [address] [id number] [place] [address] 50841- 3973 Apr, [facility] [address] [place] [id number] [place] [address] 41360- 6601 Apr, Neck pain M54.2 ; Hypertension I10 and Reactive depression F32.9 [facility] [address] [place] [id number] [place] [address] 14109- 0799 Mar, [facility] [address] [place] [address] [id number] [place] [address] 40076- 1179 Mar, [facility] [address] [place] [id number] [place] [address] 62654- 0520 Mar, [facility] [address] [place] [id number] [place] [address] 34694- 1352 Feb, Sciatica M54.30 [facility] [address] [place] [id number] [place] [address] 71838- 6852 Feb, Paresthesias R20.2 ; Sciatica M54.30 and Reactive depression F32.9 [facility] [address] [place] [id number] [place] [address] 64990- 7427 Feb, [facility] [address] [place] [id number] [place] [address] 72119- 1617 January, [facility] [address] [address] [id number] [place] [address] 71827- 8868 January, Hyperlipemia, mixed E78.2 ; Other abnormalities of heart beat R00.8 and Anxiety F41.9 [facility] [address] [place] [address] [id number] [place] [address] 73323- 8472 January, [facility] [address] [id number] [place] [address] 41301- 8082 January, Low back pain M54.5 [facility] [address] [place] [address] [id number] [place] [address] 29749- 4946 January, Anxiety disorder, unspecified F41.9 [facility] [address] [place] [id number] [place] [address] 83146- 8636 Dec, Ventricular bigeminy I49.9 [facility] [address] [place] [id number] [place] [address] 04710- 7730 Dec, [facility] [address] [place] [id number] [place] [address] 65911- 4575 Dec, Low back pain M54.5 [facility] [address] [address] [id number] [place] [address] 13366- 8225 Dec, Sciatica M54.30 [facility] [address] [place] [id number] [place] [address] 43806- 0669 Nov, Major depressive disorder, single episode, unspecified F32.9 [facility] [address] [place] [id number] [place] [address] 82383- 5525 Nov, Sciatica M54.30 [facility] [address] [place] [address] [id number] [place] [address] 01683- 7182 14 Nov, 2015 [facility] [address] [place] [address] [id number] [place] [address] 60525- 8969 Nov, [facility] [address] [place] [id number] [place] [address] 33578- 0952 Nov, Anxiety disorder, unspecified F41.9 [facility] [address] [address] [id number] [place] [address] 78574- 8296 Nov, [facility] [address] [id number] [place] [address] 36845- 0469 Nov, Depressed F32.9 and Anxiety F41.9 [facility] [address] 43552- 5824 Nov, Lumbago 724.2 ; Sciatica M54.30 and PVCs (premature ventricular contractions) I49.3 [facility] [address] 74792- 1844 Oct, [facility] [address] 16253- 7895 Oct, [facility] [address] 62593- 9291 Oct, Sciatica M54.30 and Hypertension I10 [place] [address] 59019- 0060 Oct, [facility] [address] 14892- 5672 Oct, [facility] [address] 83247- 8166 Oct, [facility] [address] 56402- 4543 Sep, [place] [address] 03365- 7237 Sep, [facility] [address] 31378- 4952 Sep, [facility] [address] 11040- 8584 Sep, Ventricular arrhythmia I49.9 [facility] [address] 66941- 6474 14 Sep, 2015 Ventricular bigeminy I49.9 and Hypertension I10 [facility] [address] 88325- 6469 Sep, Lumbago M54.5 and Ventricular bigeminy I49.9 [facility] [address] [place] [id number] [place] [address] 03571- 7967 Sep, [facility] [id number] [address]- 1066 Aug, [facility] [address] [place] [id number] [place] [address] 13045- 4249 Aug, [facility] [address] [id number] [place] [address] 75159- 5663 Aug, [facility] [address] [place] [address] [id number] [place] [address] 48476- 7131 Aug, [facility] [id number] [place] [address] 39518- 7803 Aug, [facility] [id number] [place] [address] 37962- 0373 Jul, [facility] [address] [address]- 8474 Jun, [facility] [address] [address]- 0790 May, [facility] [address] [address]- 4283 May, [facility] [address] [address]- 1228 May, Lumbago 724.2 and Depressive disorder, not elsewhere classified 311 [facility] [id number] [address]- 5587 Apr, UTI (urinary tract infection) 599.0 [facility] [address] [place] [id number] [address]- 1423 Apr, UTI (urinary tract infection) 599.0 and Depression 311 [facility] [address] [address]- 4324 Mar, [facility] [id number] [address]- 8436 Mar, [facility] [address] [address]- 9306 Mar, [facility] [address] [address]- 2299 Mar, Unspecified essential hypertension 401.9 ; Lumbago 724.2 and Anxiety 300.00 [facility] [id number] [address]- 7101 Mar, [facility] [id number] [address]- 7387 Feb, [facility] [id number] [address]- 8242 Feb, [facility] [id number] [address]- 1679 January, [facility] [address] [address]- 8488 Dec, [facility] [address] [address]- 8520 Dec, [facility] [address], [place] [address]- 7828 Oct, [facility] [place] [facility] [id number] [address]- 2265 Oct, [facility] [place] [facility] [id number] [address]- 9814 Oct, [facility] [place] [facility] [id number] 9324 Oct, [facility] [place] [facility] [id number] 8209 Sep, [facility] [place] [facility] [id number] [place] [address]- 2719 Sep, [facility] [address] [id number] [place] [address]- 7092 Sep, [facility] [place] [facility] [address] [id number] [place] [address]- 1516 Sep, [facility] [address] [id number] [place] [address]- 3075 Aug, [facility] [place] [facility] [address] [id number] [place] [address]- 9351 Aug, [facility] [place] [facility] [address] [id number] [place] [address]- 0777 Jul, [facility] [place] [facility] [address] [id number] [place] [address]- 6071 Jul, [facility] [place] [facility] [address] [id number] [place] [address]- 4859 Jun, [facility] [place] [facility] [address] [id number] [place] [address]- 0553 Jun, [facility] [place] [facility] [address] [id number] [place] [address]- 3844 Jun, [facility] [place] [facility] [address] [id number] [place] [address]- 7429 Jun, [facility] [place] [facility] [address] [id number] [place] [address]- 5529 Jun, [facility] [place] [facility] [address] [id number] [place] 0435 Jun, [facility] [place] [facility] [address] [id number] [place] [address]- 6703 May, [facility] [place] [facility] [address] [id number] [place] [address]- 8488 May, [facility] [place] [facility] [address] [id number] [place] [address]- 7529 Apr, [facility] [place] [facility] [address] [id number] [place] [address]- 4684 Apr, [facility] [place] [facility] [address] [id number] [place] [address]- 9616 Apr, [facility] [place] [facility] [address] [id number] [place] [address]- 0173 Apr, [facility] [place] [facility] [address] [id number] [place] [address]- 7893 Mar, [facility] [place] [facility] [address] [id number] [place] [address]- 3381 Mar, [facility] [place] [facility] [address] [id number] [place] [address]- 9551 Mar, [facility] [place] [facility] [address] [id number] [place] [address]- 7250 Mar, [facility] [place] [facility] [address] [id number] [place] [address]- 5036 Mar, [facility] [place] [facility] [address] [id number] [place] [address]- 0945 Mar, [facility] [place] [facility] [address] [id number] [place] [address]- 8617 Mar, [facility] [place] [facility] [address] [id number] [place] [address]- 0614 Mar, [facility] [place] [facility] [address] [id number] [place] [address]- 4041 Feb, [facility] [place] [facility] [address] [id number] [place] [address]- 1261 Feb, [facility] [place] [facility] [address] [id number] [place] [address]- 8245 January, [facility] [place] [facility] [address] [id number] [place] [address]- 1900 January, [facility] [place] [facility] [address] [id number] [place] [address]- 2194 January, [facility] [address] [id number] [place] [address]- 7152 January, [facility] [place] [facility] [address] [id number] [place] [address]- 4603 Dec, [facility] [place] [facility] [address] [id number] [place] [address]- 2209 Dec, [facility] [place] [facility] [address] [id number] [place] [address]- 3425 Dec, [facility] [place] [facility] [address] [id number] [place] [address]- 4771 Dec, [facility] [place] [facility] [address] [id number] [place] [address]- 6309 Nov, [facility] [place] [facility] [address] [id number] [place] [address]- 3535 Nov, [facility] [place] [facility] [address] [id number] [place] [address]- 0655 Sep, [facility] [place] [facility] [address] [id number] [place] [address]- 1423 Sep, [facility] [place] [facility] [address] [id number] [place] [address]- 8661 Sep, [facility] [place] [facility] [address] [id number] [place] [address]- 3820 Sep, [facility] [place] [facility] [address] [id number] [place] [address]- 5560 Sep, [facility] [place] [facility] [address] [id number] [place] [address]- 2646 Sep, [facility] [place] [facility] [address] [id number] [place] [address]- 5326 Aug, [facility] [place] [facility] [address] [id number] [place] [address]- 5965 Aug, [facility] [place] [facility] [address] [id number] [place] [address]- 2752 Aug, [facility] [address] [id number] [place] [address]- 9028 Aug, [facility] [place] [facility] [address] [id number] [place] [address]- 6552 Jul, [facility] [address] [id number] [place] [address]- 5022 Jul, [facility] [place] [facility] [address] [id number] [place] [address]- 9670 Jun, [facility] [address] [id number] [place] [address]- 3265 Jun, [facility] [place] [facility] [address] [id number] [place] [address]- 9168 Mar, [facility] [address] [id number] [place] [address] January, [facility] [address] [id number] [place] [address] Dec, [facility] [address] [id number] [place] [address] Dec, [facility] [address] [id number] [place] [address] Nov, [facility] [place] [facility] [address] [id number] [place] [address] Nov, [facility] [place] [facility] [address] [id number] [place] [address] Oct, [facility] [place] [facility] [address] [id number] [place] [address] January, [facility] [place] [facility] [address] [id number] [place] [address] Dec, [facility] [place] [facility] [address] [id number] [place] [address] Sep, IMMUNIZATIONS No Known Immunizations SOCIAL HISTORY Never Assessed REASON FOR VISIT Valium and Tramadol 08/25 PLAN OF CARE VITAL SIGNS MEDICATIONS Medication [...]
--- OUTSIDE RECORDS SUMMARY | 2018-08-12 07:21 | XMS REPORT ---
Author Author JOHANNY KINNEY Organization [facility] Address [address] [place] [address] Care Team Providers Care Gleason Operator Name Role Phone JOHANNY KINNEY Unavailable PROBLEMS Type Condition ICD9-CM Code VVV37-[place] Code Onset Dates Condition Status SNOMED Code Problem Other chronic pain G89.29 Active 90297500 Problem Cervical disc disease M50.90 Active 901586711 Problem Neck pain M54.2 Active 20818561 Problem Right maxillary sinusitis J32.0 Active 79844144 Problem Sinusitis chronic, frontal J32.1 Active 17264883 Problem Anxiety disorder, unspecified F41.9 Active 743148345 Problem Gastroesophageal reflux disease, esophagitis presence not specified K21.9 Active 838541924 Problem Prediabetes R73.03 Active 487984815 Problem Mixed hyperlipidemia E78.2 Active 437338430 Problem Sciatica M54.30 Active 34575252 Problem PVCs (premature ventricular contractions) I49.3 Active 43088121 Problem Reactive depression F32.9 Active 95015578 Problem Hypertension I10 Active 05078427 Problem Lumbago with sciatica, right side M54.41 Active 167911468 ALLERGIES No Information ENCOUNTERS Encounter Location Date Diagnosis [facility] [id number] [place] [address] 64077- 2549 Nov, [facility] [id number] [place] [address] 59648 -2986 Nov, Right maxillary sinusitis J32.0 [facility] [id number] [place] [address] 16793- 5279 Nov, Low back pain M54.5 [facility] [id number] [place] [address] 10978 -8620 Oct, Sinusitis chronic, frontal J32.1 [facility] [id number] [place] [address] 19378- 7258 Oct, Neck pain M54.2 [facility] [address] 00965- 1521 Sep, Low back pain M54.5 [facility] [address] 76880- 5531 Sep, Neck pain M54.2 [facility] [address] 64315- 0821 Sep, Lumbago with sciatica, right side M54.41 ; Hypertension I10 ; Bronchitis J40 and Anxiety disorder, unspecified F41.9 [facility] [address] 25839- 0091 Aug, Neck pain M54.2 and Low back pain M54.5 [facility] [address] 08602- 2299 Jul, Neck pain M54.2 and Low back pain M54.5 [facility] [address] 08108- 7871 Jul, Neck pain M54.2 [facility] [id number] [place] [address] 13320- 8707 Jun, Low back pain M54.5 and Neck pain M54.2 [facility] [address] 08319- 1944 22 May, 2017 Low back pain M54.5 and Neck pain M54.2 [facility] [address] 78790- 3073 May, [facility] [id number] [place] [address] 03450 -6679 14 May, [address] [facility] [address] 33733- 3134 Apr, Hyperglycemia R73.9 [facility] [id number] [place] [address] 14521- 7862 Apr, Hyperglycemia R73.9 [facility] [id number] [place] [address] 64902- 2505 Apr, Gastroesophageal reflux disease, esophagitis presence not specified K21.9 ; Mixed hyperlipidemia E78.2 ; Neck pain M54.2 and PVCs ( premature ventricular contractions) I49.3 [facility] [address] 96745- 9376 Mar, Low back pain M54.5 [facility] [address] 19778- 0271 Feb, Low back pain M54.5 and Gastroesophageal reflux disease, esophagitis presence not specified K21.9 [facility] [id number] [place] [address] 89884- 9314 January, Dyspnea on exertion R06.09 [facility] [id number] [place] [address] 49247- 6299 January, Hypertension I10 [facility] [address] 21249- 7966 January, [facility] [id number] [place] [address] 59953- 5299 January, Low back pain M54.5 [facility] [id number] [place] [address] 81400- 3576 January, Low back pain M54.5 [facility] [id number] [place] [address] 99075- 5645 January, Gastroesophageal reflux disease, esophagitis presence not specified K21.9 ; Lumbago with sciatica, right side M54.41 and Dyspnea on exertion R06.09 [facility] [id number] [place] [address] 88523- 5653 Nov, [facility] [address] 45790- 5859 Nov, [facility] [address] 28099- 3059 Nov, Gastroesophageal reflux disease, esophagitis presence not specified K21.[address] [facility] [address] 57599- 9101 15 Oct, 2016 Low back pain M54.5 and Anxiety disorder, unspecified F41.9 [facility] [address] 75311- 9199 10 Oct, 2016 Bronchitis J40 ; Hypertension I10 ; Sciatica M54.30 and Paresthesias R20.2 [facility] [address] [id number] Sep, Dental examination Z01.20 [facility] [address] [id number] Sep, Dental examination Z01.20 and Dental caries K02.9 [facility] [address] 46348- 8890 Aug, [place] [address] 74120- 0072 Jul, Low back pain M54.5 and Anxiety disorder, unspecified F41.9 [place] [address] 46951- 8523 Jul, [facility] [address] 65447- 0388 Jun, Lumbago with sciatica, right side M54.41 ; Cervical disc disease M50.90 and Gastroesophageal reflux disease, esophagitis presence not specified K21.9 [facility] [address] 66220- 7107 Jun, [facility] [address] 40183- 5705 Jun, [place] [address] [place] [address] 9557 Jun, [facility] [id number] [place] [address], [place] [address]- 3041 Jun, [facility] [id number] [place] [address]- 6805 Jun, [facility] [id number] [place] [address], [place] [address]- 6660 May, [facility] [address] [facility] [id number] [place] [address], [place] [address]- [address] May, [facility] [id number] [place] [address], [place] [address]- [address] May, [facility] [id number] [place] [address], [place] [address]- 9458 Apr, [facility] [id number] [place] [address], [place] [address]- 4680 Apr, [facility] [id number] [place] [address], [place] [address]- 2159 Apr, [facility] [id number] [place] [address], [place] [address]- 3411 Apr, Cervical disc disease M50.90 [facility] [address] [address]- 1627 Apr, [facility] [address] [address]- 0012 Apr, Neck pain M54.2 ; Hypertension I10 and Reactive depression F32.9 [facility] [address] [address]- 4660 Mar, [facility] [id number] [place] [address]- 0235 Mar, [facility] [address] [address]- 5000 Mar, [facility] [id number] [place] [address] 04654- 9139 Feb, Sciatica M54.30 [facility] [address] 07920- 5988 Feb, Paresthesias R20.2 ; Sciatica M54.30 and Reactive depression F32.9 [place] [address] 84846- 3664 Feb, [facility] [address] 29302- 0708 January, [place] [address] 86981- 6603 January, Hyperlipemia, mixed E78.2 ; Other abnormalities of heart beat R00.8 and Anxiety F41.9 [place] [address] 83465- 3488 January, [facility] [address] 97028- 8434 January, Low back pain M54.5 [place] [address] 79380- 0697 January, Anxiety disorder, unspecified F41.9 [facility] [id number] [place] [address] 48606- 2377 Dec, Ventricular bigeminy I49.9 [facility] [id number] [place] [address] 75840- 8932 Dec, [facility] [address] 40723- 1744 Dec, Low back pain M54.5 [facility] [id number] [place] [address] 50837- 3735 Dec, Sciatica M54.30 [facility] [id number] [place] [address] 87401- 1020 Nov, Major depressive disorder, single episode, unspecified F32.9 [facility] [id number] [place] [address] 48538- 9355 Nov, Sciatica M54.30 [facility] [id number] [place] [address] 14722- 0430 Nov, [facility] [id number] [place] [address] 80540- 2936 Nov, [facility] [id number] [place] [address] 18402- 3283 Nov, Anxiety disorder, unspecified F41.9 [facility] [id number] [place] [address] 49178- 4919 Nov, [facility] [id number] [place] [address] 78331- 0923 Nov, Depressed F32.9 and Anxiety F41.9 [place] [id number] [place] [address] 69081- 5932 Nov, Lumbago 724.2 ; Sciatica M54.30 and PVCs (premature ventricular contractions) I49.3 [facility] [id number] [place] [address] 55307- 7679 Oct, [facility] [id number] [place] [address] 08566- 1851 Oct, [facility] [id number] [place] [address] 39750- 8308 Oct, Sciatica M54.[address] [facility] [id number] [place] [address] 09788- 0602 Oct, [facility] [id number] [place] [address] 56702- 0089 Oct, [facility] [id number] [place] [address] 57715- 9378 Oct, [facility] [address] [address]- 5790 Sep, [facility] [id number] [place] [address] 22933- 1800 Sep, [facility] [address] [address]- 8819 Sep, [facility] [id number] [place] [address] 58748- 4348 Sep, Ventricular arrhythmia I49.9 [facility] [id number] [place] [address] 87276- 6256 Sep, Ventricular bigeminy I49.[address] [facility] [id number] [place] [address] 26818- 9523 Sep, Lumbago M54.5 and Ventricular bigeminy I49.9 [facility] [address] [address]- 3844 Sep, [facility] [id number] [place] [address] 62314- 5614 Aug, [facility] [address] [address]- 0346 Aug, [facility] [address] [address]- 112[address] Aug, [facility] [address] [address]- 8746 Aug, [facility] [address] [address]- 8612 Aug, [facility] [address] [address]- 3110 Jul, [facility] [address] [address]- 3741 Jun, [facility] [address] [address]- 6134 14 [address], 2015 [facility] [address] [address]- 0148 May, [facility] [address] 0461 May, Lumbago 724.2 and Depressive disorder, not elsewhere classified 311 [facility] [address] [address]- 1849 Apr, UTI (urinary tract infection) 599.0 [facility] [address] 7303 Apr, UTI (urinary tract infection) 599.[address] [facility] [address] [address]- 6047 Mar, [facility] [address] [address]- 9839 Mar, [facility] [id number] [address]- 7641 Mar, [facility] [address] [address]- 3866 Mar, Unspecified essential hypertension 401.9 ; Lumbago 724.[address] [facility] [address] [address]- 7844 Mar, [facility] [id number] [address]- 266[address] Feb, [facility] [id number] [address]- 4669 Feb, [facility] [id number] [address]- 6807 January, [facility] [id number] [address]- 6146 Dec, [facility] [address] [id number] [place] [address]- 7937 Dec, [facility] [place] [facility] [address] [id number] [place] [address]- 1118 Oct, 2014 [facility] [place] [facility] [address] [id number] [place] [address]- 4107 Oct, 2014 [facility] [place] [facility] [address] [id number] [place] [address]- 0299 Oct, [facility] [place] [facility] [address] [id number] [place] [address]- 4153 Oct, [facility] [place] [facility] [address] [id number] [place] [address]- 8259 Sep, [facility] [place] [facility] [address] [id number] [place] [address]- 2950 Sep, [facility] [place] [facility] [address] [id number] [place] [address]- 1513 Sep, [facility] [place] [facility] [address] [id number] [place] [address]- 1606 Sep, [facility] [place] [facility] [address] [id number] [place] [address]- 3904 Aug, [facility] [place] [facility] [address] [id number] [place] [address]- 8558 Aug, [facility] [place] [facility] [address] [id number] [place] [address]- 2247 Jul, [facility] [place] [facility] [address] [id number] [place] [address]- 4927 Jul, [facility] [place] [facility] [address] [id number] [place] [address]- 3350 Jun, [facility] [place] [facility] [address] [id number] [place] [address]- 4023 Jun, [facility] [place] [facility] [address] [id number] [place] [address]- 4777 Jun, [facility] [place] [facility] [address] [id number] [place] [address]- 2389 Jun, [facility] [place] [facility] [address] [id number] [place] 0029 Jun, [facility] [place] [facility] [address] [id number] [place] [address]- 4384 Jun, [facility] [place] [facility] [address] [id number] [place] [address]- 0860 May, [facility] [place] [facility] [address] [id number] [place] [address]- 4438 May, [facility] [place] [facility] [address] [id number] [place] [address]- 9042 Apr, [facility] [place] [facility] [address] [id number] [place] [address]- 9995 Apr, [facility] [place] [facility] [address] [id number] [place] [address]- 3869 Apr, [facility] [place] [facility] [address] [id number] [place] [address]- 5290 Apr, [facility] [place] [facility] [address] [id number] [place] [address]- 1194 Mar, [facility] [place] [facility] [address] [id number] [place] [address]- 6888 Mar, [facility] [place] [facility] [address] [id number] [place] [address]- 3052 Mar, [facility] [place] [facility] [address] [id number] [place] [address]- 8331 Mar, [facility] [place] [facility] [address] [id number] [place] [address]- 3099 Mar, [facility] [place] [facility] [address] [id number] [place] [address]- 7605 Mar, [facility] [place] [facility] [address] [id number] [place] [address]- 2984 Mar, [facility] [address] [id number] [place] [address]- 6705 Mar, [facility] [address] [id number] [place] [address]- 8089 Feb, [facility] [address] [id number] [place] [address]- 4952 Feb, [facility] [address] [id number] [place] [address]- 2310 January, [facility] [address] [id number] [place] [address]- 8310 January, [facility] [address] [id number] [place] [address]- 8362 January, [facility] [address] [id number] [place] [address]- 3182 January, [facility] [address] [id number] [place] [address]- 4736 Dec, [facility] [place] [facility] [address] [id number] [place] [address]- 9101 Dec, [facility] [address] [id number] [place] [address]- 8146 Dec, [facility] [place] [facility] [address] [id number] [place] [address]- 8546 Dec, [facility] [place] [facility] [address] [id number] [place] [address]- 2095 Nov, [facility] [place] [facility] [address] [id number] [place] [address]- 8549 Nov, [facility] [place] [facility] [address] [id number] [place] [address] Sep, [facility] [place] [facility] [address] [id number] [place] [address] Sep, [facility] [address] [id number] [place] [address] Sep, [facility] [place] [facility] [address] [id number] [place] [address] Sep, [facility] [place] [facility] [address] [id number] [place] [address] Sep, [facility] [place] [facility] [address] [id number] [place] [address] Sep, [facility] [place] [facility] [address] [id number] [place] [address] Aug, [facility] [place] [facility] [address] [id number] [place] [address] Aug, [facility] [place] [facility] [address] [id number] [place] [address] Aug, [facility] [place] [facility] [address] [id number] [place] [address] Aug, [facility] [place] [facility] [address] [id number] [place] [address] Jul, [facility] [place] [facility] [address] [id number] [place] [address] Jul, [facility] [place] [facility] [address] [id number] [place] [address] Jun, [facility] [place] [facility] [address] [id number] [place] [address] Jun, [facility] [place] [facility] [address] [id number] [place] [address] Mar, [facility] [place] [facility] [address] [id number] [place] [address] January, [facility] [place] [facility] [address] [id number] [place] [address] Dec, [facility] [place] [facility] [address] [id number] [place] [address] Dec, [facility] [address] [facility] [id number] [place] [address] Nov, [facility] [address] [id number] [place] [address] Nov, [facility] [address] [facility] [id number] [place] [address] Oct, [facility] [address] [id number] [place] [address] January, [facility] [address] [id number] [place] [address] Dec, [facility] [address] [id number] [place] [address] Sep, IMMUNIZATIONS No Known Immunizations SOCIAL HISTORY Never Assessed REASON FOR VISIT Valium PLAN OF CARE VITAL SIGNS MEDICATIONS Medication [...]
--- OUTSIDE RECORDS SUMMARY | 2018-08-12 07:21 | XMS REPORT ---
Author Author JOHANNY KINNEY Organization [facility] Address [address] [place] [address] Care Team Providers Care Java Developer Analyst Name Role Phone JOHANNY KINNEY Unavailable PROBLEMS Type Condition ICD9-CM Code LRA84-AT Code Onset Dates Condition Status SNOMED Code Problem Reactive depression F32.9 Active 83064617 Problem Other chronic pain G89.29 Active 14112413 Problem Lumbago with sciatica, right side M54.41 Active 031186792 Problem Hypertension I10 Active 33376766 Problem Sciatica M54.30 Active 82211820 Problem PVCs (premature ventricular contractions) I49.3 Active 29575038 Problem Prediabetes R73.03 Active 459229563 Problem Mixed hyperlipidemia E78.2 Active 253792415 Problem Cervical disc disease M50.90 Active 949772094 Problem Neck pain M54.2 Active 23398938 Problem Anxiety disorder, unspecified F41.9 Active 366883796 Problem Gastroesophageal reflux disease, esophagitis presence not specified K21.9 Active 855900728 ALLERGIES No Information SOCIAL HISTORY Never Assessed PLAN OF CARE VITAL SIGNS MEDICATIONS Unknown Medications RESULTS No Results PROCEDURES Procedure Date Ordered Result Body Site PULMONARY FUNCTION TEST (IN-HOUSE) 2017-01-28 N/A RESPIRATORY FLOW VOLUME LOOP January 28, 2017 SPIROMETRY January 28, 2017 NEB/MDI DEMO January 28, 2017 IMMUNIZATIONS No Known Immunizations MEDICAL (GENERAL) [...]
--- OUTSIDE RECORDS SUMMARY | 2018-08-12 07:21 | XMS REPORT ---
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 Name Role Phone JOHANNY KINNEY Unavailable PROBLEMS Type Condition ICD9-CM Code BSY99-MR Code Onset Dates Condition Status SNOMED Code Problem Other chronic pain G89.29 Active 94013937 Problem Cervical disc disease M50.90 Active 833745198 Problem Neck pain M54.2 Active 14495340 Problem Right maxillary sinusitis J32.0 Active 35614481 Problem Sinusitis chronic, frontal J32.1 Active 32512743 Problem Anxiety disorder, unspecified F41.9 Active 359693297 Problem Gastroesophageal reflux disease, esophagitis presence not specified K21.9 Active 973097468 Problem Prediabetes R73.03 Active 214932063 Problem Mixed hyperlipidemia E78.2 Active 907173698 Problem Sciatica M54.30 Active 01215709 Problem PVCs (premature ventricular contractions) I49.3 Active 37652054 Problem Reactive depression F32.9 Active 58731956 Problem Hypertension I10 Active 16048909 Problem Lumbago with sciatica, right side M54.41 Active 650561567 ALLERGIES No Information ENCOUNTERS Encounter Location Date Diagnosis [facility] [address], [place] [address] January, [facility] [id number] [address] Dec, Low back pain M54.5 [facility] [id number] [address] Dec, Low back pain M54.5 [facility] [address], [place] [address] Nov, [facility] [address] [address] Nov, Right maxillary sinusitis J32.0 [facility] [address] [address]- [address] Nov, Low back pain M54.5 [facility] [address] [address] Oct, Sinusitis chronic, frontal J32.1 [facility] [address] [address] Oct, Neck pain M54.2 [facility] [address] [address]- [address] Sep, Low back pain M54.5 [facility] [address] [address]- 2063 Sep, Neck pain M54.2 [facility] [address] [address] Sep, Lumbago with sciatica, right side M54.41 ; Hypertension I10 ; Bronchitis J40 and Anxiety disorder, unspecified F41.9 [facility] [facility] [address] [address] Aug, Neck pain M54.2 and Low back pain M54.5 [facility] [facility] [address] [address]- [address] Jul, Neck pain M54.2 and Low back pain M54.5 [facility] [address] [address] Jul, Neck pain M54.2 [facility] [address] [address]- 7030 Jun, Low back pain M54.5 and Neck pain M54.2 [facility] [address] [address]- 5404 May, Low back pain M54.5 and Neck pain M54.2 [facility] [id number] [place] [address] 16120- 4964 21 May, 2017 [facility] [id number] [place] [address]36 -2453 14 May, 2017 Bronchitis J40 [facility] [id number] [place] [address] 48870- 7445 11 Apr, 2017 Hyperglycemia R73.9 [facility] [address] [address]- 5232 08 Apr, 2017 Hyperglycemia R73.9 [facility] [address] [address]- [address] 07 Apr, 2017 Gastroesophageal reflux disease, esophagitis presence not specified K21.9 ; Mixed hyperlipidemia E78.2 ; Neck pain M54.2 and PVCs ( premature ventricular contractions) I49.3 [facility] [id number] [place] [address] 46858- 6603 Mar, Low back pain M54.5 [facility] [id number] [place] [address] 35133- 6231 Feb, Low back pain M54.5 and Gastroesophageal reflux disease, esophagitis presence not specified K21.9 [facility] [id number] [place] [address] 31968- 3500 January, Dyspnea on exertion R06.09 [facility] [address] [address]- 5458 January, Hypertension I10 [facility] [id number] [place] [address] 80339- 9837 January, [facility] [address] [address]- [address] January, Low back pain M54.5 [facility] [id number] [place] [address] 43849- 2869 January, Low back pain M54.5 [facility] [id number] [place] [address] 30181- 8979 January, Gastroesophageal reflux disease, esophagitis presence not specified K21.9 ; Lumbago with sciatica, right side M54.41 and Dyspnea on exertion R06.09 [facility] [id number] [place] [address] 82990- 6048 30 Nov, 2016 [place] [address] 71208- 5870 Nov, [place] [address] 12684- 5532 Nov, Gastroesophageal reflux disease, esophagitis presence not specified K21.9 and Bronchitis J40 [place] [address] 38015- 4735 15 Oct, 2016 Low back pain M54.5 and Anxiety disorder, unspecified F41.9 [place] [address] [address]70- 9228 10 Oct, 2016 Bronchitis J40 ; Hypertension I10 ; Sciatica M54.30 and Paresthesias R20.2 [facility] [address] [id number] Sep, Dental examination Z01.20 [facility] [address] [id number] Sep, Dental examination Z01.20 and Dental caries K02.9 [place] [id number] [place] [address] 53191- 7579 Aug, [place] [address] 39883- 7360 17 Jul, 2016 Low back pain M54.5 and Anxiety disorder, unspecified F41.9 [facility] [id number] [place] [address] 18070- 7690 11 Jul, 2016 [place] [address] 37880- 9165 Jun, Lumbago with sciatica, right side M54.41 ; Cervical disc disease M50.90 and Gastroesophageal reflux disease, esophagitis presence not specified K21.9 [facility] [address], [place] [address]- 59[address] Jun, [facility] [id number] [place] [address] 28532- 2648 Jun, [facility] [id number] [place] [address] 77763- 8033 Jun, [facility] [id number] [place] [address] 69528- 1427 Jun, [facility] [id number] [place] [address] 93352- 9936 Jun, [facility] [id number] [place] [address] 12595- 3876 May, [facility] [id number] [place] [address] 65019- 9533 May, [facility] [id number] [place] [address] 53255- 3071 May, [facility] [id number] [place] [address] 49401- 2679 Apr, [facility] [address], [place] [address]- 4711 Apr, [facility] [id number] [place] [address] 02842- 4666 Apr, [facility] [id number] [place] [address] 91935- 6831 Apr, Cervical disc disease M50.90 [facility] [id number], [place] [address]- 5132 Apr, [facility] [id number] [place] [address] 48750- 1029 Apr, Neck pain M54.2 ; Hypertension I10 and Reactive depression F32.9 [facility] [id number] [place] [address] 26417- 7530 Mar, [facility] [address] 49120- 9821 Mar, [facility] [address] 94664- 7755 Mar, [facility] [address] 66378- 4671 Feb, Sciatica M54.30 [place] [address] 89605- 1765 Feb, Paresthesias R20.2 ; Sciatica M54.30 and Reactive depression F32.9 [place] [address] 62863- 5517 Feb, [place] [address] 51713- 1750 January, [place] [address] 80364- 3084 January, Hyperlipemia, mixed E78.2 ; Other abnormalities of heart beat R00.8 and Anxiety F41.9 [place] [id number] [place] [address] 92818- 2768 January, [place] [address] 70688- 3533 January, Low back pain M54.5 [place] [id number] [place] [address] 58128- 9188 January, Anxiety disorder, unspecified F41.9 [facility] [id number] [place] [address] 04850- 2581 Dec, Ventricular bigeminy I49.9 [place] [address] 20352- 4328 Dec, [facility] [id number] [place] [address] 94686- 3256 Dec, Low back pain M54.5 [facility] [id number] [place] [address] 80648- 9478 Dec, Sciatica M54.30 [facility] [address] 95315- 9852 Nov, Major depressive disorder, single episode, unspecified F32.9 [facility] [id number] [place] [address] 46907- 8114 Nov, Sciatica M54.30 [facility] [address] 60446- 6528 Nov, [facility] [address] 96177- 0531 Nov, [facility] [id number] [place] [address] 93604- 7691 Nov, Anxiety disorder, unspecified F41.9 [facility] [id number] [place] [address] 94014- 2806 Nov, [facility] [id number] [place] [address] 86690- 0876 Nov, Depressed F32.9 and Anxiety F41.9 [facility] [id number] [place] [address] 50413- 7556 Nov, Lumbago 724.2 ; Sciatica M54.30 and PVCs (premature ventricular contractions) I49.3 [facility] [address] 00095- 3937 Oct, [facility] [id number] [place] [address] 07019- 5841 Oct, [facility] [id number] [place] [address] 00626- 0877 Oct, Sciatica M54.30 and Hypertension I10 [facility] [address] [place] [address] 47379- 7019 Oct, [facility] [id number] [place] [address] 12104- 2007 Oct, [facility] [id number] [place] [address] 04181- 3042 Oct, [facility] [id number] [place] [address] 27844- 8176 Sep, [facility] [id number] [place] [address] 77569- 9613 Sep, [facility] [id number] [place] [address] 34676- 8475 Sep, [facility] [id number] [place] [address] 55084- 1449 Sep, Ventricular arrhythmia I49.9 [facility] [id number] [place] [address] 45238- 0655 Sep, Ventricular bigeminy I49.9 and Hypertension I10 [facility] [address] [place] [address] 75329- 9890 Sep, Lumbago M54.5 and Ventricular bigeminy I49.9 [facility] [address] [place] [address] 00143- 6216 Sep, [facility] [address] [place] [address] 96967- 8643 Aug, [facility] [id number] [place] [address] 32864- 0326 Aug, [facility] [id number] [place] [address] 93646- 2424 Aug, [facility] [id number] [place] [address] 80649- 7320 Aug, [facility] [id number], [place] [address]- 0897 Aug, [facility] [address], [place] [address]- 9343 Jul, [facility] [id number], [place] [address]- 6235 Jun, [facility] [address], [place] [address]- 5677 May, [facility] [address]- 1166 May, [facility] [address], [place] [address]- 7110 May, Lumbago 724.2 and Depressive disorder, not elsewhere classified 311 [facility] [address], [place] [address]- 8352 Apr, UTI (urinary tract infection) 599.0 [facility] [address]- 0523 Apr, UTI (urinary tract infection) 599.0 and Depression 311 [facility] [id number], [place] [address]- 1421 Mar, [facility] [id number] [address]- 0584 Mar, [facility] [id number], [place] [address]- 0036 Mar, [facility] [id number] [address]- 7534 Mar, Unspecified essential hypertension 401.9 ; Lumbago 724.2 and Anxiety 300.00 [facility] [id number], [place] [address]- 0045 Mar, [facility] [id number], [place] [address]- 7227 Feb, [facility] [place] [facility] [address] [id number] [place] [address]- 1647 Feb, [facility] [place] [facility] [address] [id number] [place] [address]- 5348 January, [facility] [place] [facility] [address] [id number] [place] [address]- 0748 Dec, [facility] [place] [facility] [address] [id number] [place] [address]- 8613 Dec, [facility] [place] [facility] [address] [id number] [place] [address]- 7676 Oct, [facility] [place] [facility] [address] [id number] [place] [address]- 1209 Oct, [facility] [place] [facility] [address] [id number] [place] [address]- 2566 Oct, [facility] [place] [facility] [address] [id number] [place] [address]- 4742 Oct, [facility] [place] [facility] [address] [id number] [place] [address]- 6793 Sep, [facility] [place] [facility] [address] [id number] [place] [address]- 2752 Sep, [facility] [place] [facility] [address] [id number] [place] [address]- 5566 Sep, [facility] [place] [facility] [address] [id number] [place] [address]- 4050 Sep, [facility] [place] [facility] [address] [id number] [place] [address]- 4253 Aug, [facility] [place] [facility] [address] [id number] [place] 3271 Aug, [facility] [place] [facility] [address] [id number] [place] [address]- 1398 Jul, [facility] [place] [facility] [address] [id number] [place] [address]- 9385 Jul, [facility] [place] [facility] [address] [id number] [place] [address]- 7256 Jun, [facility] [place] [facility] [address] [id number] [place] [address]- 3346 Jun, [facility] [place] [facility] [address] [id number] [place] [address]- 0218 Jun, [facility] [place] [facility] [address] [id number] [place] [address]- 7875 Jun, [facility] [place] [facility] [address] [id number] [place] [address]- 0976 Jun, [facility] [place] [facility] [address] [id number] [place] [address]- 5706 Jun, [facility] [place] [facility] [address] [id number] [place] [address]- 0204 May, [facility] [place] [facility] [address] [id number] [place] [address]- 6271 May, [facility] [place] [facility] [address] [id number] [place] [address]- 4995 Apr, [facility] [place] [facility] [address] [id number] [place] [address]- 6661 Apr, [facility] [place] [facility] [address] [id number] [place] [address]- 6848 Apr, [facility] [place] [facility] [address] [id number] [place] [address]- 5897 Apr, [facility] [place] [facility] [address] [id number] [place] [address]- 0368 Mar, [facility] [place] [facility] [address] [id number] [place] [address]- 9932 Mar, [facility] [place] [facility] [address] [id number] [place] [address]- 0118 Mar, [facility] [place] [facility] [address] [id number] [place] [address]- 5663 Mar, [facility] [place] [facility] [address] [id number] [place] [address]- 0350 Mar, [facility] [place] [facility] [address] [id number] [place] [address]- 6772 Mar, [facility] [place] [facility] [address] [id number] [place] [address]- 4752 Mar, [facility] [place] [facility] [address] [id number] [place] [address]- 5217 Mar, [facility] [place] [facility] [address] [id number] [place] [address]- 4330 Feb, [facility] [place] [facility] [address] [id number] [place] [address]- 2751 Feb, [facility] [place] [facility] [address] [id number] [place] [address]- 3741 January, [facility] [place] [facility] [address] [id number] [place] [address]- 5282 January, [facility] [place] [facility] [address] [id number] [place] [address]- 1314 January, [facility] [place] [facility] [address] [id number] [place] [address]- 4214 January, [facility] [place] [facility] [address] [id number] [place] [address]- 6516 Dec, [facility] [place] [facility] [address] [id number] [place] [address]- 1876 Dec, [facility] [place] [facility] [address] [id number] [place] [address]- 5217 Dec, [facility] [place] [facility] [address] [id number] [place] [address]- 7956 Dec, [facility] [place] [facility] [address] [id number] [place] [address]- 8297 13 Nov, 2013 [facility] [address] [id number] [place] [address]- 8023 Nov, [facility] [place] [facility] [address] [id number] [place] [address]- 6108 Sep, [facility] [place] [facility] [address] [id number] [place] [address]- 5526 Sep, [facility] [place] [facility] [address] [id number] [place] [address]- 7926 Sep, [facility] [place] [facility] [address] [id number] [place] [address]- 5046 Sep, [facility] [place] [facility] [address] [id number] [place] [address]- 3944 Sep, [facility] [address] [id number] [place] [address]- 9820 Sep, [facility] [place] [facility] [address] [id number] [place] [address]- 3257 Aug, [facility] [place] [facility] [address] [id number] [place] [address]- 2046 Aug, [facility] [place] [facility] [address] [id number] [place] [address]- 1723 Aug, [facility] [place] [facility] [address] [id number] [place] [address]- 1406 Aug, [facility] [place] [facility] [address] [id number], [place] [address]- 3752 Jul, [facility] [place] [facility] [address] [id number] [place] [address]- 3367 Jul, [facility] [place] [facility] [address] [id number] [place] [address]- 2032 Jun, [facility] [place] [facility] [address] [id number] [place] [address]- 4083 Jun, [facility] [place] [facility] [id number], [place] [address]- 2546 Mar, [facility] [id number], [place] [address]- 3328 January, [facility] [address], [place] [address]- 2366 Dec, [facility] [id number], [place] [address]- 9106 Dec, [facility] [address], [place] [address]- 9237 Nov, [facility] [address], [place] [address]- 4136 Nov, [facility] [address], [place] [address]- 9749 Oct, [facility] [address], [place] [address]- 5840 January, [facility] [id number] [address] Dec, [facility] [id number], [place] [address] Sep, IMMUNIZATIONS No Known Immunizations SOCIAL HISTORY [...]
--- OUTSIDE RECORDS SUMMARY | 2018-08-12 07:21 | XMS REPORT ---
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 Name Role Phone JOHANNY KINNEY Unavailable PROBLEMS Type Condition ICD9-CM Code [id number] Code Onset Dates Condition Status SNOMED Code Problem Reactive depression F32.9 Active 55904740 Problem Other chronic pain G89.29 Active 27457036 Problem Lumbago with sciatica, right side M54.41 Active 184524460 Problem Hypertension I10 Active 47100799 Problem Sciatica M54.30 Active 47487502 Problem PVCs (premature ventricular contractions) I49.3 Active 03196667 Problem Prediabetes R73.03 Active 291628474 Problem Mixed hyperlipidemia E78.2 Active 969601049 Problem Cervical disc disease M50.90 Active 689620607 Problem Neck pain M54.2 Active 58848048 Problem Anxiety disorder, unspecified F41.9 Active 847148949 Problem Gastroesophageal reflux disease, esophagitis presence not specified K21.9 Active 363738786 ALLERGIES No Known Allergies SOCIAL HISTORY Never Assessed PLAN OF CARE Activity Details Follow Up 3 Months Reason: VITAL SIGNS Height 62 in 2016-10-18 Weight 153.8 lbs 2016-10-18 Temperature 98.4 degrees Fahrenheit 2016-10-18 Heart Rate 92 bpm 2016-10-18 Respiratory Rate 20 2016-10-18 BMI 28.13 kg/m2 2016-10-18 Blood pressure systolic 150 mmHg 2016-10-18 Blood pressure diastolic 100 mmHg 2016-10-18 MEDICATIONS Medication Instructions Dosage Frequency Start Date End Date Duration Status Cyclobenzaprine HCl 10 mg Orally Three times a day 1 tablet 8h 10 Active Lipitor 10 MG Orally Once a day 1 tablet 24h Active Diazepam 5MG Orally, each fill must last 30 days Twice a day 1 tablet as needed 12h Active Zoloft 50 mg Orally Once a day 1 tablet 24h Sep, Active Tramadol HCl 50MG Orally, each fill must last 30 days every 6 hours 1 tablet 6h Active Gabapentin 600 MG Orally Three times a day 1 capsule 8h 23 Oct, 2015 Active Zoloft 50MG Orally Once a day 1 tablet 24h 30 Active Zithromax Z-Darryn 250 MG Orally Once a day 2 tablets on the first day, then 1 tablet daily for 4 days 24h Oct, Oct, 5 day(s) Active Omeprazole 20 mg Orally Once a day 1 24h Jun, Active PredniSONE 50 mg Orally Once a day 1 tablet 24h Oct, Oct, 05 days Active Metoprolol Succinate ER 50 MG Orally [...]
--- OUTSIDE RECORDS SUMMARY | 2018-08-12 07:22 | XMS REPORT ---
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 Role Phone JOHANNY KINNEY Unavailable PROBLEMS Type Condition ICD9-CM Code CZZ95-ZT Code Onset Dates Condition Status SNOMED Code Problem Other chronic pain G89.29 Active 77654463 Problem Cervical disc disease M50.90 Active 453052212 Problem Neck pain M54.2 Active 60837217 Problem Right maxillary sinusitis J32.0 Active 90700459 Problem Sinusitis chronic, frontal J32.1 Active 50258945 Problem Anxiety disorder, unspecified F41.9 Active 718811794 Problem Gastroesophageal reflux disease, esophagitis presence not specified K21.9 Active 375183719 Problem Prediabetes R73.03 Active 165342776 Problem Mixed hyperlipidemia E78.2 Active 042720229 Problem Sciatica M54.30 Active 77330548 Problem PVCs (premature ventricular contractions) I49.3 Active 83774820 Problem Reactive depression F32.9 Active 30831687 Problem Hypertension I10 Active 35992632 Problem Lumbago with sciatica, right side M54.41 Active [id number] ALLERGIES No Information ENCOUNTERS Encounter Location Date Diagnosis [facility] [address] [address] January, [facility] [id number] [address] Dec, Low back pain M54.5 [facility] [id number] [address] Dec, Low back pain M54.5 [facility] [address] [address] Nov, [facility] [address] [address] Nov, Right maxillary sinusitis J32.0 [facility] [address] [address]- 9633 Nov, Low back pain M54.5 [facility] [address] [address] Oct, Sinusitis chronic, frontal J32.1 [facility] [address] [address]- 2197 Oct, Neck pain M54.2 [facility] [address] [address]- 7619 Sep, Low back pain M54.5 [facility] [address] [address]111- 4777 Sep, Neck pain M54.2 [facility] [address] [address]- 2207 Sep, Lumbago with sciatica, right side M54.41 ; Hypertension I10 ; Bronchitis J40 and Anxiety disorder, unspecified F41.9 [facility] [address] [address] Aug, Neck pain M54.2 and Low back pain M54.5 [facility] [facility] [address] 29809- 1757 Jul, Neck pain M54.2 and Low back pain M54.5 [facility] [address] 8[address]- 4465 Jul, Neck pain M54.2 [facility] [address] 40062- 9888 Jun, Low back pain M54.5 and Neck pain M54.2 [facility] [address] [address]64- 0516 May, Low back pain M54.5 and Neck pain M54.2 [facility] [id number] [place] [address] 78981- 9062 21 May, 2017 [facility] [id number] [place] [address]40 -2914 14 May, 2017 Bronchitis J40 [facility] [id number] [place] [address] 03684- 5734 11 Apr, 2017 Hyperglycemia R73.9 [facility] [address] 48178- 8672 08 Apr, 2017 Hyperglycemia R73.9 [facility] [address] 24397- 5525 07 Apr, 2017 Gastroesophageal reflux disease, esophagitis presence not specified K21.9 ; Mixed hyperlipidemia E78.2 ; Neck pain M54.2 and PVCs ( premature ventricular contractions) I49.3 [facility] [id number] [place] [address] 77997- 2012 Mar, Low back pain M54.5 [facility] [id number] [place] [address] 49351- 9692 Feb, Low back pain M54.5 and Gastroesophageal reflux disease, esophagitis presence not specified K21.9 [facility] [id number] [place] [address] 64364- 7027 January, Dyspnea on exertion R06.09 [facility] [address] 28760- 4744 January, Hypertension I10 [facility] [id number] [place] [address] 32812- 5057 January, [facility] [address] [address]- 1960 January, Low back pain M54.5 [facility] [id number] [place] [address] 40291- 5647 January, Low back pain M54.5 [facility] [id number] [place] [address] 02885- 1400 January, Gastroesophageal reflux disease, esophagitis presence not specified K21.9 ; Lumbago with sciatica, right side M54.41 and Dyspnea on exertion R06.09 [facility] [id number] [place] [address] 76131- 1288 30 Nov, 2016 [place] [facility] [address] 64787- 1563 Nov, [facility] [facility] [address] 68682- 6196 Nov, Gastroesophageal reflux disease, esophagitis presence not specified K21.9 and Bronchitis J40 [place] [address] 39674- 0413 15 Oct, 2016 Low back pain M54.5 and Anxiety disorder, unspecified F41.9 [facility] [facility] [address] 07462- 6495 10 Oct, 2016 Bronchitis J40 ; Hypertension I10 ; Sciatica M54.30 and Paresthesias R20.2 [facility] [address] [id number] Sep, Dental examination Z01.20 [facility] [address] [id number] Sep, Dental examination Z01.20 and Dental caries K02.9 [facility] [id number] [place] [address] 25261- 2944 Aug, [facility] [facility] [address] 60116- 3764 17 Jul, 2016 Low back pain M54.5 and Anxiety disorder, unspecified F41.9 [facility] [id number] [place] [address] 12407- 7500 11 Jul, 2016 [place] [address] 92021- 2618 Jun, Lumbago with sciatica, right side M54.41 ; Cervical disc disease M50.90 and Gastroesophageal reflux disease, esophagitis presence not specified K21.9 [facility] [address] [address]- 9300 Jun, [facility] [id number] [place] [address] 27632- 8144 Jun, [facility] [id number] [place] [address] 84114- 7767 Jun, [facility] [id number] [place] [address] 52668- 9899 Jun, [facility] [id number] [place] [address] 52899- 3400 Jun, [facility] [id number] [place] [address] 40931- 7972 May, [facility] [id number] [place] [address] 26652- 5561 May, [facility] [id number] [place] [address] 63443- 3937 May, [facility] [id number] [place] [address] 60991- 5661 Apr, [facility] [address] [address]- 0171 Apr, [facility] [id number] [place] [address] 63222- 4049 Apr, [facility] [id number] [place] [address] 79466- 1896 Apr, Cervical disc disease M50.90 [facility] [id number] [address]- 4281 Apr, [facility] [id number] [place] [address] 51069- 0635 Apr, Neck pain M54.2 ; Hypertension I10 and Reactive depression F32.9 [facility] [id number] [place] [address] 17275- 3444 Mar, [facility] [address] 68141- 7474 Mar, [facility] [address] 13784- 3815 Mar, [facility] [address] 35561- 3628 Feb, Sciatica M54.30 [place] [address] 56793- 8333 Feb, Paresthesias R20.2 ; Sciatica M54.30 and Reactive depression F32.9 [place] [address] 07973- 5983 Feb, [place] [address] 27102- 5566 January, [place] [address] 57225- 5168 January, Hyperlipemia, mixed E78.2 ; Other abnormalities of heart beat R00.8 and Anxiety F41.9 [place] [id number] [place] [address] 67841- 2004 January, [place] [address] 40759- 0914 January, Low back pain M54.5 [place] [id number] [place] [address] 26704- 3770 January, Anxiety disorder, unspecified F41.9 [facility] [id number] [place] [address] 31667- 0846 Dec, Ventricular bigeminy I49.9 [place] [address] 50673- 1411 Dec, [facility] [id number] [place] [address] 48627- 1950 Dec, Low back pain M54.5 [facility] [id number] [place] [address] 69046- 3115 Dec, Sciatica M54.30 [facility] [address] 12446- 8441 Nov, Major depressive disorder, single episode, unspecified F32.9 [facility] [id number] [place] [address] 82164- 3151 Nov, Sciatica M54.30 [facility] [address] 85177- 8790 Nov, [facility] [address] 70189- 9256 Nov, [facility] [id number] [place] [address] 51966- 5141 Nov, Anxiety disorder, unspecified F41.9 [facility] [id number] [place] [address] 50169- 3147 Nov, [facility] [id number] [place] [address] 60912- 8045 Nov, Depressed F32.9 and Anxiety F41.9 [facility] [id number] [place] [address] 36962- 4334 Nov, Lumbago 724.2 ; Sciatica M54.30 and PVCs (premature ventricular contractions) I49.3 [facility] [address] 23436- 5020 Oct, [facility] [id number] [place] [address] 35821- 1093 Oct, [facility] [id number] [place] [address] 40548- 7716 Oct, Sciatica M54.30 and Hypertension I10 [facility] [id number] [place] [address] 30622- 4968 Oct, [facility] [id number] [place] [address] 63479- 9914 Oct, [facility] [id number] [place] [address] 62846- 0275 Oct, [facility] [id number] [place] [address] 80402- 4825 Sep, [facility] [id number] [place] [address] 45724- 9467 Sep, [facility] [id number] [place] [address] 07844- 4384 Sep, [facility] [id number] [place] [address] 13733- 4112 Sep, Ventricular arrhythmia I49.9 [facility] [id number] [place] [address] 53111- 3276 Sep, Ventricular bigeminy I49.9 and Hypertension I10 [facility] [id number] [place] [address] 99282- 5308 Sep, Lumbago M54.5 and Ventricular bigeminy I49.9 [facility] [id number] [place] [address] 85012- 2129 Sep, [facility] [id number] [place] [address] 53682- 8533 Aug, [facility] [id number] [place] [address] 19739- 2014 Aug, [facility] [id number] [place] [address] 34749- 3418 Aug, [facility] [id number] [place] [address] 95698- 1793 Aug, [facility] [id number] [address]- 9558 Aug, [facility] [address] [address]- 4365 Jul, [facility] [id number] [address]- 8589 Jun, [facility] [address] [address]- 4084 May, [facility] [address]- 5782 May, [facility] [address] [address]- 3616 May, Lumbago 724.2 and Depressive disorder, not elsewhere classified 311 [facility] [address] [address]- 2291 Apr, UTI (urinary tract infection) 599.0 [facility] [address]- 9787 Apr, UTI (urinary tract infection) 599.0 and Depression 311 [facility] [id number] [address]- 1901 Mar, [facility] [id number] [address]- 9513 Mar, [facility] [id number] [address]- 0599 Mar, [facility] [id number] [address]- 1778 Mar, Unspecified essential hypertension 401.9 ; Lumbago 724.2 and Anxiety 300.00 [facility] [id number] [address]- 2547 Mar, [facility] [id number] [address]- 5390 Feb, [facility] [place] [facility] [address] [id number] [place] [address]- 2452 Feb, [facility] [place] [facility] [address] [id number] [place] [address]- 2780 January, [facility] [place] [facility] [address] [id number] [place] [address]- 0335 Dec, [facility] [place] [facility] [address] [id number] [place] [address]- 8286 Dec, [facility] [place] [facility] [address] [id number] [place] [address]- 6301 Oct, [facility] [place] [facility] [address] [id number] [place] [address]- 9928 Oct, [facility] [place] [facility] [address] [id number] [place] [address]- 6940 Oct, [facility] [place] [facility] [address] [id number] [place] [address]- 5986 Oct, [facility] [place] [facility] [address] [id number] [place] [address]- 3219 Sep, [facility] [place] [facility] [address] [id number] [place] [address]- 9872 Sep, [facility] [place] [facility] [address] [id number] [place] [address]- 8361 Sep, [facility] [place] [facility] [address] [id number] [place] [address]- 4233 Sep, [facility] [place] [facility] [address] [id number] [place] [address]- 8952 Aug, [facility] [place] [facility] [address] [id number] [place] 7641 Aug, [facility] [place] [facility] [address] [id number] [place] [address]- 7819 Jul, [facility] [place] [facility] [address] [id number] [place] [address]- 9082 Jul, [facility] [place] [facility] [address] [id number] [place] [address]- 2094 Jun, [facility] [place] [facility] [address] [id number] [place] [address]- 4046 Jun, [facility] [place] [facility] [address] [id number] [place] [address]- 0491 Jun, [facility] [place] [facility] [address] [id number] [place] [address]- 3098 Jun, [facility] [place] [facility] [address] [id number] [place] [address]- 5068 Jun, [facility] [place] [facility] [address] [id number] [place] [address]- 9137 Jun, [facility] [place] [facility] [address] [id number] [place] [address]- 7380 May, [facility] [place] [facility] [address] [id number] [place] [address]- 9334 May, [facility] [place] [facility] [address] [id number] [place] [address]- 8492 Apr, [facility] [place] [facility] [address] [id number] [place] [address]- 7272 Apr, [facility] [place] [facility] [address] [id number] [place] [address]- 2470 Apr, [facility] [place] [facility] [address] [id number] [place] [address]- 5937 Apr, [facility] [place] [facility] [address] [id number] [place] [address]- 5932 Mar, [facility] [place] [facility] [address] [id number] [place] [address]- 9595 Mar, [facility] [place] [facility] [address] [id number] [place] [address]- 6009 Mar, [facility] [place] [facility] [address] [id number] [place] [address]- 7547 Mar, [facility] [place] [facility] [address] [id number] [place] [address]- 2277 Mar, [facility] [place] [facility] [address] [id number] [place] [address]- 1394 Mar, [facility] [place] [facility] [address] [id number] [place] [address]- 4455 Mar, [facility] [place] [facility] [address] [id number] [place] [address]- 4665 Mar, [facility] [place] [facility] [address] [id number] [place] [address]- 5573 Feb, [facility] [place] [facility] [address] [id number] [place] [address]- 1435 Feb, [facility] [place] [facility] [address] [id number] [place] [address]- 1327 January, [facility] [place] [facility] [address] [id number] [place] [address]- 6707 January, [facility] [place] [facility] [address] [id number] [place] [address]- 6000 January, [facility] [place] [facility] [address] [id number] [place] [address]- 4948 January, [facility] [place] [facility] [address] [id number] [place] [address]- 6130 Dec, [facility] [place] [facility] [address] [id number] [place] [address]- 5169 Dec, [facility] [place] [facility] [address] [id number] [place] [address]- 1265 Dec, [facility] [place] [facility] [address] [id number] [place] [address]- 1028 Dec, [facility] [place] [facility] [address] [id number] [place] [address]- 8366 13 Nov, 2013 [facility] [address] [id number] [place] [address]- 5154 Nov, [facility] [place] [facility] [address] [id number] [place] [address]- 2916 Sep, [facility] [place] [facility] [address] [id number] [place] [address]- 8847 Sep, [facility] [place] [facility] [address] [id number] [place] [address]- 3374 Sep, [facility] [place] [facility] [address] [id number] [place] [address]- 0897 Sep, [facility] [place] [facility] [address] [id number] [place] [address]- 3703 Sep, [facility] [address] [id number] [place] [address]- 2911 Sep, [facility] [place] [facility] [address] [id number] [place] [address]- 3634 Aug, [facility] [place] [facility] [address] [id number] [place] [address]- 0496 Aug, [facility] [place] [facility] [address] [id number] [place] [address]- 5296 Aug, [facility] [place] [facility] [address] [id number] [place] [address]- 8581 Aug, [facility] [place] [facility] [address] [id number] [address]- 7017 Jul, [facility] [place] [facility] [address] [id number] [place] [address]- 1444 Jul, [facility] [place] [facility] [address] [id number] [place] [address]- 0720 Jun, [facility] [place] [facility] [address] [id number] [place] [address]- 5290 Jun, [facility] [place] [facility] [id number] [address]- 2546 Mar, [facility] [address] [address]- 3266 January, [facility] [address] [address]- 1456 Dec, [facility] [address] [address]- 2906 Dec, [facility] [address] [address]- 2767 Nov, [facility] [address] [address]- 6066 Nov, [facility] [address] [address]- 7376 Oct, [facility] [address] [address]- 8283 January, [facility] [id number] [address] Dec, [facility] [id number] [address] Sep, IMMUNIZATIONS No Known Immunizations SOCIAL HISTORY Never Assessed REASON FOR VISIT Diazepam & Tramadol- 06/02 PLAN OF CARE VITAL SIGNS MEDICATIONS Medication Instructions Dosage Frequency Start Date End Date Duration Status Tramadol HCl 50MG Orally, each fill must last 30 days every 6 hours 1 tablet 6h Active Diazepam 5MG Orally, each fill must [...]
[2018-08-12] MEDS ORDERED: SEVOFLURANE (ULTANE) 15 ML INHAL SOLN ONE (07:23)
--- OUTSIDE RECORDS SUMMARY | 2018-08-12 07:23 | XMS REPORT ---
Author Author JOHANNY KINNEY Organization [facility] Address [address] [place] [address] Care Team Providers Care Crap Shooter Name Role Phone JOHANNY KINNEY Unavailable PROBLEMS Type Condition ICD9-CM Code MOG77-RB Code Onset Dates Condition Status SNOMED Code Problem Neck pain M54.2 Active 25773270 Problem Gastroesophageal reflux disease, esophagitis presence not specified K21.9 Active 237645877 Problem Cervical disc disease M50.90 Active 330660723 Problem Chronic maxillary sinusitis J32.0 Active 89684098 Problem Right maxillary sinusitis J32.0 Active 53886274 Problem Mixed hyperlipidemia E78.2 Active 062450363 Problem Anxiety disorder, unspecified F41.9 Active 357998851 Problem Sinusitis chronic, frontal J32.1 Active 04259070 Problem Prediabetes R73.03 Active 675916303 Problem PVCs (premature ventricular contractions) I49.3 Active 08239686 Problem Reactive depression F32.9 Active 42658926 Problem Hypertension I10 Active 06054402 Problem Lumbago with sciatica, right side M54.41 Active 940015858 Problem Sciatica M54.30 Active 87484875 Problem Other chronic pain G89.29 Active 09198072 ALLERGIES No Information ENCOUNTERS Encounter Location Date Diagnosis [facility] [address] [id number] [address] Feb, Chronic maxillary sinusitis J32.0 [facility] [id number] [place] [address] 01203- 6018 14 Feb, 2018 Low back pain M54.5 [facility] [id number] [place] [address] 11717- 2224 06 Feb, 2018 Low back pain M54.5 [facility] [id number] [place] [address] 32907- 0514 Feb, Low back pain M54.5 [facility] [id number] [place] [address] 33503- 2023 January, [facility] [address] 58285- 0505 January, Sinusitis chronic, frontal J32.1 [facility] [address] 19733- 4595 January, Lumbago with sciatica, right side M54.41 ; Cervical disc disease M50.90 ; Hypertension I10 and Gastroesophageal reflux disease, esophagitis presence not specified K21.9 [facility] [address] 10268- 4470 Dec, Low back pain M54.5 [facility] [address] 60243- 9569 Dec, Low back pain M54.5 [facility] [address] 48712- 0332 Nov, [facility] [address] [address] Nov, Right maxillary sinusitis J32.0 [facility] [address] 33621- 8224 Nov, Low back pain M54.5 [facility] [id number] [place] [address] 41149 -2265 Oct, Sinusitis chronic, frontal J32.1 [facility] [id number] [place] [address] 30917- 3669 Oct, Neck pain M54.2 [facility] [address] 56138- 4339 Sep, Low back pain M54.5 [facility] [address] 40597- 4843 Sep, Neck pain M54.2 [facility] [address] 68759- 1211 Sep, Lumbago with sciatica, right side M54.41 ; Hypertension I10 ; Bronchitis J40 and Anxiety disorder, unspecified F41.9 [facility] [address] 31431- 6321 Aug, Neck pain M54.2 and Low back pain M54.5 [facility] [address] 05769- 6439 Jul, Neck pain M54.2 and Low back pain M54.5 [facility] [address] 44414- 4591 Jul, Neck pain M54.2 [facility] [address] 27388- 6622 Jun, Low back pain M54.5 and Neck pain M54.2 [facility] [address] 94354- 1886 May, Low back pain M54.5 and Neck pain M54.2 [facility] [address] 91314- 8450 May, [facility] [address] 10681 [address]376 14 May, 2017 Bronchitis J40 [facility] [address] 70083- 7710 Apr, Hyperglycemia R73.9 [facility] [address] 73853- 3039 Apr, Hyperglycemia R73.9 [facility] [address] 51009- 9661 Apr, Gastroesophageal reflux disease, esophagitis presence not specified K21.9 ; Mixed hyperlipidemia E78.2 ; Neck pain M54.2 and PVCs ( premature ventricular contractions) I49.3 [facility] [id number] [place] [address] 10358- 6868 Mar, Low back pain M54.5 [facility] [id number] [place] [address] 16852- 2076 Feb, Low back pain M54.5 and Gastroesophageal reflux disease, esophagitis presence not specified K21.9 [facility] [address] 23048- 5690 January, Dyspnea on exertion R06.09 [facility] [address] 36676- 7360 January, Hypertension I10 [facility] [address] 44313- 3024 January, [facility] [address] 94267- 8708 January, Low back pain M54.5 [facility] [id number] [place] [address] 64358- 5665 January, Low back pain M54.5 [facility] [id number] [place] [address] 35210- 4871 January, Gastroesophageal reflux disease, esophagitis presence not specified K21.9 ; Lumbago with sciatica, right side M54.41 and Dyspnea on exertion R06.09 [facility] [id number] [place] [address] 21879- 0309 Nov, [facility] [id number] [place] [address] 73217- 5067 Nov, [facility] [address] 28597- 7838 Nov, Gastroesophageal reflux disease, esophagitis presence not specified K21.9 and Bronchitis J40 [facility] [id number] [place] [address] 42947- 9031 Oct, Low back pain M54.5 and Anxiety disorder, unspecified F41.9 [facility] [id number] [place] [address] 21616- 8471 10 Oct, 2016 Bronchitis J40 ; Hypertension I10 ; Sciatica M54.30 and Paresthesias R20.2 [facility] [address] [place] [address] [id number] Sep, Dental examination Z01.20 [facility] [id number] [place] [address] [id number] Sep, Dental examination Z01.20 and Dental caries K02.9 [facility] [id number] [place] [address] 72708- 7888 Aug, [facility] [id number] [place] [address] 70442- 4132 Jul, Low back pain M54.5 and Anxiety disorder, unspecified F41.9 [facility] [id number] [place] [address] 43988- 3359 Jul, [facility] [id number] [place] [address] 37900- 0513 Jun, Lumbago with sciatica, right side M54.41 ; Cervical disc disease M50.90 and Gastroesophageal reflux disease, esophagitis presence not specified K21.9 [facility] [id number] [place] [address] 40407- 8184 Jun, [facility] [id number] [place] [address] 82887- 8169 Jun, [facility] [id number] [place] [address] 54362- 6061 Jun, [facility] [id number] [place] [address] 26992- 0305 Jun, [facility] [id number] [place] [address] 88762- 6419 Jun, [facility] [address] [place] [address]- 1627 May, [facility] [id number] [place] [address] 73583- 3859 May, [facility] [id number] [place] [address] 86565- 6838 May, [facility] [id number] [place] [address] 35465- 3573 Apr, [facility] [id number] [place] [address] 80094- 2075 Apr, [facility] [id number] [place] [address] 44193- 2060 Apr, [facility] [id number] [place] [address] 01962- 4281 Apr, Cervical disc disease M50.90 [facility] [id number] [place] [address] 86156- 1554 Apr, [facility] [id number] [place] [address] 79191- 9237 Apr, Neck pain M54.2 ; Hypertension I10 and Reactive depression F32.9 [facility] [id number] [place] [address] 71654- 9113 Mar, [facility] [id number] [place] [address] 20920- 7471 Mar, [facility] [id number] [place] [address] 41612- 6303 Mar, [facility] [id number] [place] [address] 82783- 1398 Feb, Sciatica M54.30 [facility] [id number] [place] [address] 36175- 6800 Feb, Paresthesias R20.2 ; Sciatica M54.30 and Reactive depression F32.9 [facility] [id number] [place] [address] 69089- 2452 Feb, [facility] [id number] [place] [address] 53954- 3505 January, [facility] [address] 62388- 7115 January, Hyperlipemia, mixed E78.2 ; Other abnormalities of heart beat R00.8 and Anxiety F41.9 [facility] [address] 87389- 6822 January, [facility] [address] 03377- 9766 January, Low back pain M54.5 [facility] [id number] [place] [address] 69105- 9063 January, Anxiety disorder, unspecified F41.9 [facility] [address] 80128- 7786 18 Dec, 2015 Ventricular bigeminy I49.9 [facility] [id number] [place] [address] 70776- 6145 Dec, [facility] [id number] [place] [address] 27619- 4567 Dec, Low back pain M54.5 [facility] [id number] [place] [address] 68135- 0416 Dec, Sciatica M54.30 [facility] [id number] [place] [address] 14840- 8024 Nov, Major depressive disorder, single episode, unspecified F32.9 [facility] [address] 00154- 0033 Nov, Sciatica M54.30 [facility] [id number] [place] [address] 41270- 6782 Nov, [facility] [id number] [place] [address] 84016- 9980 Nov, [facility] [id number] [place] [address] 61222- 5409 Nov, Anxiety disorder, unspecified F41.9 [facility] [id number] [place] [address] 00942- 3052 Nov, [facility] [id number] [place] [address] 36489- 6577 Nov, Depressed F32.9 and Anxiety F41.9 [facility] [id number] [place] [address] 53938- 7190 Nov, Lumbago 724.2 ; Sciatica M54.30 and PVCs (premature ventricular contractions) I49.3 [facility] [id number] [place] [address] 47325- 3737 Oct, [facility] [id number] [place] [address] 52980- 5008 Oct, [facility] [id number] [place] [address] 53111- 8162 Oct, Sciatica M54.30 and Hypertension I10 [facility] [id number] [place] [address] 65345- 8047 Oct, [facility] [id number] [place] [address] 72473- 9318 Oct, [facility] [id number] [place] [address] 81746- 2716 Oct, [facility] [id number] [place] [address] 52158- 0914 Sep, [facility] [id number] [place] [address] 90900- 1374 Sep, [facility] [id number] [place] [address] 47747- 9810 Sep, [facility] [id number] [place] [address] 69384- 2935 Sep, Ventricular arrhythmia I49.9 [facility] [id number] [place] [address] 50779- 2604 Sep, Ventricular bigeminy I49.9 and Hypertension I10 [facility] [id number] [place] [address] 70918- 8818 Sep, Lumbago M54.5 and Ventricular bigeminy I49.9 [facility] [id number] [place] [address] 08835- 4939 Sep, [facility] [id number] [place] [address] 50042- 8939 Aug, [facility] [id number] [place] [address] 03678- 7775 Aug, [facility] [id number] [place] [address] 16746- 0323 Aug, [facility] [id number] [place] [address] 03213- 4561 Aug, [facility] [id number] [place] [address] 49858- 9340 Aug, [facility] [id number] [place] [address] 87767- 0895 Jul, [facility] [id number] [place] [address] 72563- 4406 Jun, [facility] [id number] [place] [address] 19850- 3776 May, [facility] [id number] [place] [address] 39711- 9573 May, [facility] [address] [address]- 8286 May, Lumbago 724.2 and Depressive disorder, not elsewhere classified 311 [facility] [address] [address]- 1481 Apr, UTI (urinary tract infection) 599.0 [facility] [address]- 7044 Apr, UTI (urinary tract infection) 599.0 and Depression 311 [facility] [address] [address]- 9006 Mar, [facility] [address] [address]- 1313 Mar, [facility] [address] [address]- 9985 Mar, [facility] [address] [address]- 6046 Mar, Unspecified essential hypertension 401.9 ; Lumbago 724.2 and Anxiety 300.00 [facility] [address] [address]- 9060 Mar, [facility] [address] [address]- 5669 Feb, [facility] [address] [address]- 9579 Feb, [facility] [id number] [address]- 4550 January, [facility] [id number] [address]- 9105 Dec, [facility] [id number] [address]- 0864 Dec, [facility] [id number]- 4266 Oct, [facility] [id number]- 4226 Oct, [facility] [address] [address]- 2243 Oct, 2014 [facility] [place] [facility] [address] [id number] [place] [address]- 6974 Oct, [facility] [place] [facility] [address] [id number] [place] [address]- 5295 Sep, [facility] [place] [facility] [address] [id number] [place] [address]- 5138 Sep, [facility] [place] [facility] [address] [id number] [place] [address]- 3335 Sep, [facility] [place] [facility] [address] [id number] [place] [address]- 0149 Sep, [facility] [place] [facility] [address] [id number] [place] [address]- 4815 Aug, [facility] [place] [facility] [address] [id number] [place] [address]- 4428 Aug, [facility] [place] [facility] [address] [id number] [place] [address]- 4163 Jul, [facility] [place] [facility] [address] [id number] [place] [address]- 5471 Jul, [facility] [place] [facility] [address] [facility] [id number] [place] [address]- 7505 Jun, [facility] [place] [facility] [address] [id number] [place] [address]- 2284 Jun, [facility] [place] [facility] [address] [id number] [place] [address]- 9314 Jun, [facility] [place] [facility] [address] [id number] [place] 7082 Jun, [facility] [place] [facility] [address] [id number] [place] [address]- 0749 Jun, [facility] [place] [facility] [address] [id number] [place] 4500 Jun, [facility] [place] [facility] [address] [id number] [place] [address]- 4594 May, [facility] [place] [facility] [address] [id number] [place] [address]- 4492 May, [facility] [place] [facility] [address] [id number] [place] [address]- 5758 Apr, [facility] [place] [facility] [address] [id number] [place] [address]- 8550 Apr, [facility] [place] [facility] [address] [id number] [place] [address]- 9078 Apr, [facility] [place] [facility] [address] [id number] [place] [address]- 4222 Apr, [facility] [place] [facility] [address] [id number] [place] [address]- 9442 Mar, [facility] [place] [facility] [address] [id number] [place] [address]- 2652 Mar, [facility] [place] [facility] [address] [id number] [place] [address]- 3890 Mar, [facility] [place] [facility] [address] [id number] [place] [address]- 7458 Mar, [facility] [place] [facility] [address] [id number] [place] [address]- 0154 Mar, [facility] [place] [facility] [address] [id number] [place] [address]- 6066 Mar, [facility] [place] [facility] [address] [id number] [place] [address]- 0505 Mar, [facility] [place] [facility] [address] [id number] [place] [address]- 9694 Mar, [facility] [place] [facility] [address] [id number] [place] [address]- 7448 Feb, [facility] [place] [facility] [address] [id number] [place] [address]- 3731 Feb, [facility] [place] [facility] [address] [id number] [place] [address]- 5596 January, [facility] [place] [facility] [address] [id number] [place] [address]- 6271 January, [facility] [place] [facility] [address] [id number] [place] 7500 January, [facility] [place] [facility] [address] [id number] [place] [address]- 6137 January, [facility] [place] [facility] [address] [id number] [place] [address]- 3727 Dec, [facility] [place] [facility] [address] [id number] [place] [address]- 9686 Dec, [facility] [place] [facility] [address] [id number] [place] [address]- 4114 Dec, [facility] [place] [facility] [address] [id number] [place] [address]- 1259 Dec, [facility] [place] [facility] [address] [id number] [place] [address]- 4789 Nov, [facility] [place] [facility] [address] [id number] [place] [address]- 6709 Nov, [facility] [place] [facility] [address] [id number] [place] [address]- 1875 Sep, [facility] [place] [facility] [address] [id number] [place] [address]- 0079 Sep, [facility] [place] [facility] [address] [id number] [place] [address]- 0522 Sep, [facility] [place] [facility] [address] [id number] [place] [address]- 2107 Sep, [facility] [place] [facility] [address] [id number] [place] [address]- 4632 Sep, [facility] [place] [facility] [address] [id number] [place] [address]- 1386 Sep, [facility] [address] [id number] [place] [address]- 2636 Aug, [facility] [address] [id number] [place] [address]- 2666 Aug, [facility] [address] [id number] [place] [address]- 6497 Aug, [facility] [address] [id number] [place] [address]- 5846 Aug, [facility] [address] [id number] [place] [address]- 4613 Jul, [facility] [address] [id number] [place] [address]- 2388 Jul, [facility] [address] [id number] [place] [address]- 3987 Jun, [facility] [address] [id number] [place] [address]- 4974 Jun, [facility] [address] [id number] [place] [address] Mar, [facility] [address] [id number] [place] [address] January, [facility] [address] [id number] [place] [address] Dec, [facility] [address] [id number] [place] [address] Dec, [facility] [place] [facility] [address] [id number] [place] [address] Nov, [facility] [place] [facility] [address] [id number] [place] [address] Nov, [facility] [address] [id number] [place] [address] Oct, [facility] [address] [facility] [id number] [place] [address] January, [facility] [address] [facility] [id number] [address] Dec, [facility] [address] [facility] [id number] [place] [address] Sep, IMMUNIZATIONS No Known Immunizations SOCIAL HISTORY Never Assessed REASON FOR VISIT Diazepam 10/06 PLAN OF CARE VITAL SIGNS MEDICATIONS Medication [...]
--- OUTSIDE RECORDS SUMMARY | 2018-08-12 07:23 | XMS REPORT ---
Author Author JOHANNY KINNEY Organization [facility] [place] Address [address] [place] [address] Care Team Providers Care Manager Oracle Name Role Phone JOHANNY KINNEY Unavailable PROBLEMS Type Condition ICD9-CM Code [id number] Code Onset Dates Condition Status SNOMED Code Problem Other chronic pain G89.29 Active 49396383 Problem Cervical disc disease M50.90 Active 143432901 Problem Neck pain M54.2 Active 39753972 Problem Right maxillary sinusitis J32.0 Active 03676701 Problem Sinusitis chronic, frontal J32.1 Active 27134154 Problem Anxiety disorder, unspecified F41.9 Active 252835610 Problem Gastroesophageal reflux disease, esophagitis presence not specified K21.9 Active 076941188 Problem Prediabetes R73.03 Active 742797505 Problem Mixed hyperlipidemia E78.2 Active 486926136 Problem Sciatica M54.30 Active 12396665 Problem PVCs (premature ventricular contractions) I49.3 Active 21702755 Problem Reactive depression F32.9 Active 90666245 Problem Hypertension I10 Active 38305467 Problem Lumbago with sciatica, right side M54.41 Active 427905085 ALLERGIES No Information ENCOUNTERS Encounter Location Date Diagnosis [place] [id number] [place] [address] 77423- 3545 January, Sinusitis chronic, frontal J32.1 [facility] [place] [id number] [place] [address] 75639- 8598 January, Lumbago with sciatica, right side M54.41 ; Cervical disc disease M50.90 ; Hypertension I10 and Gastroesophageal reflux disease, esophagitis presence not specified K21.9 [place] [address] [place] [id number] [address] 5921 Dec, Low back pain M54.5 [place] [address] [place] [id number] [place] [address] 19238- 4449 Dec, Low back pain M54.5 [facility] [place] [address] 17114- 8656 Nov, [facility] [address] [place] [id number] [place] [address] 56045 -0912 Nov, Right maxillary sinusitis J32.0 [facility] [place] [address] 77554- 6079 Nov, Low back pain M54.5 [facility] [address] 41589 -7675 Oct, Sinusitis chronic, frontal J32.1 [place] [address] 38555- 4926 Oct, Neck pain M54.2 [place] [address] 39430- 6829 Sep, Low back pain M54.5 [place] [address] 32092- 0164 Sep, Neck pain M54.2 [place] [address] [place] [id number] [place] [address] 59653- 2354 Sep, Lumbago with sciatica, right side M54.41 ; Hypertension I10 ; Bronchitis J40 and Anxiety disorder, unspecified F41.9 [facility] [place] [address] [place] [id number] [place] [address] 15979- 1919 Aug, Neck pain M54.2 and Low back pain M54.5 [facility] [place] [address] 69261- 9677 Jul, Neck pain M54.2 and Low back pain M54.5 [facility] [place] [address] [place] [id number] [place] [address] 47134- 7994 Jul, Neck pain M54.2 [place] [address] [place] [id number] [place] [address] 67910- 2799 Jun, Low back pain M54.5 and Neck pain M54.2 [facility] [place] [address] 01447- 4657 May, Low back pain M54.5 and Neck pain M54.2 [facility] [place] [address] 89889- 9715 May, [facility] [address] 26251 -7263 14 May, 2017 Bronchitis J40 [place] [address] 37355- 1894 11 Apr, 2017 Hyperglycemia R73.9 [place] [address] 08719- 1627 08 Apr, 2017 Hyperglycemia R73.9 [place] [address] 80619- 9954 Apr, Gastroesophageal reflux disease, esophagitis presence not specified K21.9 ; Mixed hyperlipidemia E78.2 ; Neck pain M54.2 and PVCs ( premature ventricular contractions) I49.3 [place] [address] 42737- 0440 Mar, Low back pain M54.5 [place] [address] 98244- 6870 Feb, Low back pain M54.5 and Gastroesophageal reflux disease, esophagitis presence not specified K21.9 [place] [address] 15399- 2608 January, Dyspnea on exertion R06.09 [place] [address] 63103- 2877 January, Hypertension I10 [place] [address] 80923- 7067 January, [facility] [place] [address] [place] [id number] [place] [address] 89662- 8140 January, Low back pain M54.5 [facility] [place] [address] [place] [id number] [place] [address] 98554- 0924 January, Low back pain M54.5 [facility] [place] [address] [place] [id number] [place] [address] 02851- 9635 January, Gastroesophageal reflux disease, esophagitis presence not specified K21.9 ; Lumbago with sciatica, right side M54.41 and Dyspnea on exertion R06.09 [place] [address] 05434- 9282 Nov, [facility] [place] [address] 02274- 0856 Nov, [facility] [place] [address] 77752- 3468 Nov, Gastroesophageal reflux disease, esophagitis presence not specified K21.9 and Bronchitis J40 [facility] [place] [address] [place] [id number] [place] [address] 38028- 3276 15 Oct, 2016 Low back pain M54.5 and Anxiety disorder, unspecified F41.9 [facility] [place] [address] [place] [id number] [place] [address] 65521- 1766 10 Oct, 2016 Bronchitis J40 ; Hypertension I10 ; Sciatica M54.30 and Paresthesias R20.2 [facility] [address] [place] [id number] [place] [address] [id number] Sep, Dental examination Z01.20 [facility] [address] [place] [id number] [place] [address] [id number] Sep, Dental examination Z01.20 and Dental caries K02.9 [facility] [place] [address] [place] [id number] [place] [address] 59694- 2454 Aug, [facility] [place] [address] 41094- 2354 Jul, Low back pain M54.5 and Anxiety disorder, unspecified F41.9 [facility] [place] [address] [place] [id number] [place] [address] 26891- 0312 Jul, [facility] [place] [address] [place] [id number] [place] [address], [place] [address]- 0365 Jun, Lumbago with sciatica, right side M54.41 ; Cervical disc disease M50.90 and Gastroesophageal reflux disease, esophagitis presence not specified K21.9 [facility] [place] [address] [facility] [id number] [place] [address], [place] [address]- 3704 Jun, [facility] [place] [address] [place] [id number] [place] [address], [place] [address]- 9997 Jun, [facility] [place] [address] [place] [id number] [place] [address] 22885- 9972 Jun, [facility] [place] [address] [place] [id number] [place] [address] 08142- 0525 Jun, [facility] [place] [address] [place] [id number] [place] [address] 01713- 4629 Jun, [facility] [place] [address] [place] [id number] [place] [address] 03962- 8585 May, [facility] [place] [address] [place] [id number] [address]- 1454 May, [facility] [place] [address] [place] [id number] [address]- 5815 May, [facility] [place] [address] [place] [id number] [address]- 9051 Apr, [facility] [place] [address] [place] [id number] [place] [address] 74052- 8666 Apr, [facility] [place] [address] [facility] [id number] [address]- 5979 Apr, [facility] [place] [address] [place] [id number] [place] [address] 46054- 1340 Apr, Cervical disc disease M50.90 [facility] [place] [address] [place] [id number] [place] [address] 92520- 4318 Apr, [facility] [place] [address] 12610- 6511 Apr, Neck pain M54.2 ; Hypertension I10 and Reactive depression F32.9 [facility] [place] [address] 44841- 6989 Mar, [facility] [place] [address] 15003- 4660 Mar, [facility] [place] [address] 70828- 7930 Mar, [place] [address] 74870- 7372 Feb, Sciatica M54.30 [place] [address] 72983- 9552 Feb, Paresthesias R20.2 ; Sciatica M54.30 and Reactive depression F32.9 [place] [address] [place] [id number] [place] [address] 02534- 9747 Feb, [place] [address] [place] [id number] [place] [address] 36767- 2104 January, [facility] [place] [address] [place] [id number] [place] [address] 28140- 7232 January, Hyperlipemia, mixed E78.2 ; Other abnormalities of heart beat R00.8 and Anxiety F41.9 [place] [address] 26364- 5056 January, [facility] [place] [address] 99707- 3403 January, Low back pain M54.5 [place] [address] 23616- 0086 January, Anxiety disorder, unspecified F41.9 [facility] [place] [address] [place] [id number] [place] [address] 68443- 5774 Dec, Ventricular bigeminy I49.9 [facility] [place] [address] 67578- 4661 Dec, [facility] [place] [address] 48564- 7989 Dec, Low back pain M54.5 [facility] [place] [address] 52600- 1472 Dec, Sciatica M54.30 [place] [address] 32858- 6320 Nov, Major depressive disorder, single episode, unspecified F32.9 [facility] [place] [address] 55920- 1854 Nov, Sciatica M54.30 [facility] [place] [address] [place] [id number] [place] [address] 99076- 8852 Nov, [facility] [place] [address] 37729- 8076 Nov, [facility] [place] [address] [place] [id number] [place] [address] 82217- 0496 Nov, Anxiety disorder, unspecified F41.9 [facility] [place] [address] [place] [id number] [place] [address] 51867- 9741 Nov, [facility] [place] [address] [place] [id number] [place] [address] 51807- 4944 Nov, Depressed F32.9 and Anxiety F41.9 [facility] [place] [address] [place] [id number] [place] [address] 34239- 7080 Nov, Lumbago 724.2 ; Sciatica M54.30 and PVCs (premature ventricular contractions) I49.3 [place] [address] [place] [address]- 9272 Oct, [facility] [place] [address] [place] [id number] [place] [address] 63697- 8032 Oct, [facility] [place] [address] [place] [id number] [place] [address] 44835- 8604 Oct, Sciatica M54.30 and Hypertension I10 [facility] [place] [address] [place] [id number] [place] [address] 77545- 7948 Oct, [facility] [place] [address] [place] [id number] [place] [address] 74357- 6756 Oct, [facility] [place] [address] [place] [id number] [place] [address] 77803- 3196 Oct, [facility] [place] [address] [place] [id number] [place] [address] 52406- 2500 Sep, [facility] [place] [address] [place] [id number] [place] [address] 10006- 4030 Sep, [facility] [place] [address] [place] [id number] [place] [address] 11027- 3743 Sep, [facility] [place] [address] [place] [id number] [place] [address] 30682- 7439 Sep, Ventricular arrhythmia I49.9 [facility] [place] [address] [place] [id number] [place] [address] 27707- 5097 Sep, Ventricular bigeminy I49.9 and Hypertension I10 [facility] [place] [id number] [place] [address] 47583- 6276 Sep, Lumbago M54.5 and Ventricular bigeminy I49.9 [facility] [place] [address] [place] [id number] [place] [address] 93947- 5215 Sep, [facility] [place] [id number] [place] [address] 82216- 1201 Aug, [facility] [place] [address] [place] [address] [id number] [address]- 0701 Aug, [facility] [place] [address] [facility] [id number] [address]- 2597 Aug, [facility] [place] [address] [place] [id number] [address]- 2432 Aug, [facility] [place] [address] [address]- 3902 Aug, [facility] [place] [address] [place] [id number] [address]- 7504 Jul, [facility] [place] [address] [address]- 3647 Jun, [facility] [place] [address]- 4500 May, [facility] [place] [address] [address]- 0783 May, [facility] [place] [address] [place] [address] [id number]- 5608 May, Lumbago 724.2 and Depressive disorder, not elsewhere classified 311 [facility] [place] [address] [place] [id number] [address]- 5808 Apr, UTI (urinary tract infection) 599.0 [facility] [place] [address] [place] [id number] [address]- 5998 Apr, UTI (urinary tract infection) 599.0 and Depression 311 [facility] [place] [address] [place] [id number] [address]- 2769 Mar, [facility] [place] [address] [id number] [address]- 0041 Mar, [facility] [place] [id number] [address]- 9387 Mar, [facility] [place] [address] [id number] [address]- 2924 Mar, Unspecified essential hypertension 401.9 ; Lumbago 724.2 and Anxiety 300.00 [facility] [place] [id number] [address]- 7763 Mar, [facility] [id number] [address]- 6952 Feb, [facility] [place] [address] [id number] [place] [address] 38546- 5685 Feb, [facility] [place] [address] [id number] [address]- 1059 January, [facility] [place] [address] [place] [id number] [place] [address], [place] [address]- 5847 Dec, [facility] [place] [address] [id number] [address]- 2820 Dec, [facility] [place] [id number] [place] [address], [place] [address]- 7259 Oct, [facility] [place] [address] [address]- 7336 Oct, [facility] [place] [address] [address]- 3138 Oct, [facility] [place] [address] [address]- 6884 Oct, [facility] [place] [address] [address]- 2109 Sep, [facility] [place] [id number] [address]- 1658 Sep, [facility] [place] [address] [address]- 4543 Sep, [facility] [place] [id number] [address]- 4886 Sep, [facility] [place] [address] [address]- 9531 Aug, [facility] [place] [facility] [address] [id number] [place] [address]- 2430 Aug, [facility] [place] [facility] [address] [id number] [place] [address]- 9338 Jul, [facility] [place] [facility] [address] [id number] [place] [address]- 1208 Jul, [facility] [place] [facility] [address] [id number] [place] [address]- 6202 Jun, [facility] [place] [facility] [address] [id number] [place] [address]- 5824 Jun, [facility] [place] [facility] [address] [id number] [place] [address]- 4258 Jun, [facility] [place] [facility] [address] [id number] [place] [address]- 0226 Jun, [facility] [place] [facility] [address] [id number] [place] [address]- 2795 Jun, [facility] [place] [facility] [address] [id number] [place] [address]- 2188 Jun, [facility] [place] [facility] [address] [id number] [place] [address]- 5343 May, [facility] [place] [facility] [address] [id number] [address]- 9142 May, [facility] [place] [facility] [address] [id number] [address]- 9595 Apr, [facility] [place] [facility] [address] [id number] [place] [address]- 4535 Apr, [facility] [place] [facility] [address] [id number] [place] [address]- 2672 Apr, [facility] [place] [facility] [address] [id number] [place] [address] Apr, [facility] [place] [facility] [address] [id number] [place] [address] Mar, [facility] [place] [facility] [address] [id number] [place] [address] Mar, [facility] [place] [facility] [address] [id number] [place] [address] Mar, [facility] [place] [facility] [address] [id number] [place] [address] Mar, [facility] [place] [facility] [address] [id number] [place] [address] Mar, [facility] [place] [facility] [address] [id number] [place] [address] Mar, [facility] [place] [facility] [address] [id number] [place] [address] Mar, [facility] [place] [facility] [address] [id number] [place] [address] Mar, [facility] [place] [facility] [address] [id number] [place] [address] Feb, [facility] [place] [facility] [address] [id number] [place] [address] Feb, [facility] [place] [facility] [address] [id number] [place] [address] January, [facility] [place] [facility] [address] [id number] [place] [address] January, [facility] [place] [facility] [address] [id number] [place] [address] January, [facility] [place] [facility] [address] [id number] [place] [address] January, [facility] [place] [facility] [address] [id number] [place] [address] Dec, [facility] [place] [facility] [address] [id number] [place] [address] Dec, [facility] [place] [facility] [address] [id number] [place] [address] 14 Dec, 2013 [facility] [address] [id number] [place] [address] 14 Dec, 2013 [facility] [address] [id number] [place] [address] 13 Nov, 2013 [facility] [place] [facility] [address] [id number] [place] [address] Nov, [facility] [address] [id number] [place] [address] Sep, [facility] [address] [id number] [place] [address] Sep, [facility] [address] [id number] [place] [address] Sep, [facility] [address] [id number] [place] [address] Sep, [facility] [address] [id number] [place] [address] Sep, [facility] [address] [id number] [place] [address] Sep, [facility] [address] [id number] [place] [address] Aug, [facility] [place] [facility] [address] [id number] [place] [address] Aug, [facility] [place] [facility] [address] [id number] [place] [address] Aug, [facility] [place] [facility] [address] [id number] [place] [address] Aug, [facility] [place] [facility] [address] [id number] [place] [address] Jul, [facility] [place] [facility] [address] [id number] [place] [address] Jul, [facility] [place] [id number] [address] Jun, [facility] [place] [id number] [address] Jun, [facility] [place] [id number] [address] Mar, [facility] [place] [id number] [address] January, [facility] [place] [id number] [address] Dec, [facility] [place] [id number] [address] Dec, [facility] [place] [id number] [address] Nov, [facility] [place] [id number] [address] Nov, [facility] [place] [id number] [address] Oct, [facility] [place] [id number] [id number] January, [facility] [place] [id number] [address] Dec, [facility] [place] [id number] [address] Sep, IMMUNIZATIONS No Known Immunizations SOCIAL HISTORY Never Assessed REASON FOR VISIT Tramadol tempory fill PLAN OF CARE VITAL SIGNS MEDICATIONS Medication Instructions Dosage Frequency Start Date End Date Duration Status Tramadol HCl 50MG Orally, each fill must last 30 days every 6 hours 1 tablet 6h 4 days Active RESULTS No Results PROCEDURES No [...]
--- OUTSIDE RECORDS SUMMARY | 2018-08-12 07:24 | XMS REPORT ---
Author Author LAITH Campos Organization [facility] Address Unknown Care Team Providers Care Platform Worker Name Role Phone lisalisaSLIME LAITH Unavailable PROBLEMS Type Condition ICD9-CM Code QRS43-NP Code Onset Dates Condition Status SNOMED Code Problem Reactive depression F32.9 Active 11883843 Problem Other chronic pain G89.29 Active 12696317 Problem Lumbago with sciatica, right side M54.41 Active 778296092 Problem Hypertension I10 Active 74704330 Problem Sciatica M54.30 Active 03202229 Problem PVCs (premature ventricular contractions) I49.3 Active 51099913 Problem Prediabetes R73.03 Active 836005771 Problem Mixed hyperlipidemia E78.2 Active 102856775 Problem Cervical disc disease M50.90 Active 608972480 Problem Neck pain M54.2 Active 04292719 Problem Anxiety disorder, unspecified F41.9 Active 006269017 Problem Gastroesophageal reflux disease, esophagitis presence not specified K21.9 Active 348891949 ALLERGIES Substance Reaction Event Type Date Status N.K.D.A. Unknown Non Drug Allergy Sep, Unknown SOCIAL HISTORY No smoking Hx information available PLAN OF CARE Activity Details Follow Up prn Reason:nehemias/hygiene VITAL SIGNS Height 62 in 2016-09-25 Blood pressure systolic 141 mmHg 2016-09-25 Blood pressure diastolic 103 mmHg 2016-09-25 MEDICATIONS Medication Instructions Dosage Frequency Start Date End Date Duration Status Zoloft 50 mg Orally Once a day 1 tablet 24h Sep, Active Metoprolol Succinate ER 50 MG Orally Once a day 1 tablet 24h Sep, Active Cyclobenzaprine HCl 10 mg Orally Three times a day 1 tablet 8h 10 Active Tramadol HCl 50MG Orally, each fill must last 30 days every 6 hours 1 tablet 6h Active Zoloft 50MG Orally Once a day 1 tablet 24h 30 Active Hydrocodone-Acetaminophen 5-325 MG Orally every 6 hrs 1 tablet as needed 6h Active Lipitor 10 MG Orally Once a day 1 tablet 24h Active Diazepam 5MG Orally, each fill must last 30 days Twice a day 1 tablet as needed 12h Active Gabapentin 600 MG Orally Three times a day 1 capsule 8h Oct, Active Omeprazole 20 mg Orally Once a day 1 24h Jun, Active RESULTS No Results PROCEDURES Procedure Date Ordered Related Diagnosis Body Site LTD ORAL EVALUATION - PROBLEM FOCUS Sep 25, 2016 INTRAORL-PERIAPICAL 1 FILM 87257 Sep 25, 2016 Billing Notes on claim Sep 25, 2016 EXTRAC ERUPTED TOOTH/EXPOSED ROOT Sep 25, 2016 IMMUNIZATIONS No Known Immunizations
--- OUTSIDE RECORDS SUMMARY | 2018-08-12 07:24 | XMS REPORT ---
Author Author CASI COLLDAO 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 Name Role Phone CASI COLLADO Unavailable PROBLEMS Type Condition ICD9-CM Code HTF54-AJ Code Onset Dates Condition Status SNOMED Code Problem Other chronic pain G89.29 Active 80442209 Problem Cervical disc disease M50.90 Active 056250217 Problem Neck pain M54.2 Active 33154830 Problem Right maxillary sinusitis J32.0 Active 68945433 Problem Sinusitis chronic, frontal J32.1 Active 32142797 Problem Anxiety disorder, unspecified F41.9 Active 846811195 Problem Gastroesophageal reflux disease, esophagitis presence not specified K21.9 Active 876471165 Problem Prediabetes R73.03 Active 252383487 Problem Mixed hyperlipidemia E78.2 Active 551500629 Problem Sciatica M54.30 Active 41791938 Problem PVCs (premature ventricular contractions) I49.3 Active 39861821 Problem Reactive depression F32.9 Active 10279836 Problem Hypertension I10 Active 51892268 Problem Lumbago with sciatica, right side M54.41 Active 659039730 ALLERGIES No Known Allergies ENCOUNTERS Encounter Location Date Diagnosis [facility] [id number] [place] [address]04- [address]286 January, Lumbago with sciatica, right side M54.41 ; Cervical disc disease M50.90 ; Hypertension I10 and Gastroesophageal reflux disease, esophagitis presence not specified K21.9 [facility] [id number] [address] Dec, Low back pain M54.5 [facility] [id number] [address] Dec, Low back pain M54.5 [facility] [id number] [place] [address] 25173- 0259 Nov, [facility] [address] [address] Nov, Right maxillary sinusitis J32.0 [facility] [address] [address]02[address] 8141 Nov, Low back pain M54.5 [facility] [address] [address] Oct, Sinusitis chronic, frontal J32.1 [place] [address] [address]- 6648 Oct, Neck pain M54.2 [place] [address] [address]38- 0315 Sep, Low back pain M54.5 [place] [address] 73512- 8405 Sep, Neck pain M54.2 [place] [address] 89709- 4884 Sep, Lumbago with sciatica, right side M54.41 ; Hypertension I10 ; Bronchitis J40 and Anxiety disorder, unspecified F41.9 [place] [id number] [place] [address] 81919- 4821 Aug, Neck pain M54.2 and Low back pain M54.5 [facility] [id number] [place] [address] 19946- 5568 Jul, Neck pain M54.2 and Low back pain M54.5 [place] [address] 08182- 8027 Jul, Neck pain M54.2 [facility] [id number] [place] [address] 02461- 7026 Jun, Low back pain M54.5 and Neck pain M54.2 [facility] [id number] [place] [address] 44707- 6982 22 May, 2017 Low back pain M54.5 and Neck pain M54.2 [facility] [id number] [place] [address] 80440- 7815 21 May, 2017 [facility] [address] [address] 14 May, 2017 Bronchitis J40 [facility] [address] 62967- 9398 11 Apr, 2017 Hyperglycemia R73.9 [place] [address] 20455- 9720 08 Apr, 2017 Hyperglycemia R73.9 [facility] [id number] [place] [address] 94134- 2347 07 Apr, 2017 Gastroesophageal reflux disease, esophagitis presence not specified K21.9 ; Mixed hyperlipidemia E78.2 ; Neck pain M54.2 and PVCs ( premature ventricular contractions) I49.3 [facility] [id number] [place] [address] 98587- 8943 Mar, Low back pain M54.5 [facility] [id number] [place] [address] 40584- 6502 Feb, Low back pain M54.5 and Gastroesophageal reflux disease, esophagitis presence not specified K21.9 [facility] [id number] [place] [address] 24694- 2327 January, Dyspnea on exertion R06.09 [facility] [address] 89503- 8315 January, Hypertension I10 [facility] [id number] [place] [address] 63439- 2330 January, [facility] [id number] [place] [address] 54232- 9835 January, Low back pain M54.5 [facility] [id number] [place] [address] 22665- 9954 January, Low back pain M54.5 [facility] [address] 17904- 5282 05 Jan, 2017 Gastroesophageal reflux disease, esophagitis presence not specified K21.9 ; Lumbago with sciatica, right side M54.41 and Dyspnea on exertion R06.09 [facility] [address] 38221- 2815 30 Nov, 2016 [facility] [address] 37179- 9181 Nov, [facility] [address] 45768- 3819 Nov, Gastroesophageal reflux disease, esophagitis presence not specified K21.9 and Bronchitis J40 [place] [address] 73946- 8819 15 Oct, 2016 Low back pain M54.5 and Anxiety disorder, unspecified F41.9 [place] [address] 56887- 2790 10 Oct, 2016 Bronchitis J40 ; Hypertension I10 ; Sciatica M54.30 and Paresthesias R20.2 [facility] [address] [id number] Sep, Dental examination Z01.20 [facility] [address] [id number] Sep, Dental examination Z01.20 and Dental caries K02.9 [place] [address] 69950- 1405 Aug, [facility] [address] 92350- 3990 Jul, Low back pain M54.5 and Anxiety disorder, unspecified F41.9 [place] [address] [place] [address]- 7929 Jul, [facility] [id number] [place] [address], [place] [address]- 1801 Jun, Lumbago with sciatica, right side M54.41 ; Cervical disc disease M50.90 and Gastroesophageal reflux disease, esophagitis presence not specified K21.9 [facility] [id number] [place] [address], [place] [address]- 3705 Jun, [facility] [address] [facility] [id number] [place] [address], [place] [address]- 5936 Jun, [facility] [id number] [place] [address], [place] [address]- 0552 Jun, [facility] [id number] [place] [address], [place] [address]- 5720 Jun, [facility] [id number] [place] [address], [place] [address]- 7327 Jun, [facility] [id number] [address]- 1747 May, [facility] [id number] [place] [address], [place] [address]- 6248 May, [facility] [id number] [address]- 4676 May, [facility] [id number] [place] [address]- 4726 Apr, [facility] [id number] [address]- 2548 Apr, [facility] [id number] [place] [address], [place] [address]- 8150 Apr, [facility] [id number], [place] [address]- 2545 Apr, Cervical disc disease M50.90 [facility] [id number] [address]- 1058 Apr, [facility] [id number] [place] [address] 12032- 8684 Apr, Neck pain M54.2 ; Hypertension I10 and Reactive depression F32.9 [facility] [id number] [place] [address] 05078- 6246 Mar, [facility] [id number] [place] [address] 65267- 0423 Mar, [facility] [id number] [place] [address] 11826- 3551 Mar, [facility] [address] 00035- 6935 Feb, Sciatica M54.30 [facility] [id number] [place] [address] 46652- 8600 Feb, Paresthesias R20.2 ; Sciatica M54.30 and Reactive depression F32.9 [facility] [id number] [place] [address] 95801- 8626 Feb, [facility] [id number] [place] [address] 09963- 4193 January, [facility] [id number] [place] [address] 38032- 3930 January, Hyperlipemia, mixed E78.2 ; Other abnormalities of heart beat R00.8 and Anxiety F41.9 [facility] [id number] [place] [address] 32623- 1565 January, [facility] [id number] [place] [address] 53153- 0672 January, Low back pain M54.5 [facility] [id number] [place] [address] 15508- 9439 January, Anxiety disorder, unspecified F41.9 [facility] [id number] [place] [address] 90964- 6410 Dec, Ventricular bigeminy I49.9 [facility] [id number] [place] [address] 41253- 7067 Dec, [facility] [address] 35121- 9372 Dec, Low back pain M54.5 [facility] [address] 74282- 1006 Dec, Sciatica M54.30 [facility] [address] 95996- 4260 Nov, Major depressive disorder, single episode, unspecified F32.9 [facility] [address] 76928- 9294 Nov, Sciatica M54.30 [place] [address] 57329- 4664 Nov, [facility] [id number] [place] [address] 39307- 3558 Nov, [facility] [address] 14982- 8904 Nov, Anxiety disorder, unspecified F41.9 [facility] [id number] [place] [address] 45926- 6188 Nov, [facility] [address] 21068- 9376 Nov, Depressed F32.9 and Anxiety F41.9 [facility] [id number] [place] [address] 99301- 4439 Nov, Lumbago 724.2 ; Sciatica M54.30 and PVCs (premature ventricular contractions) I49.3 [facility] [id number] [place] [address] 27037- 7979 Oct, [facility] [address] 16936- 3642 Oct, [facility] [id number] [place] [address] 51766- 4873 Oct, Sciatica M54.30 and Hypertension I10 [facility] [id number] [place] [address] 12395- 2946 Oct, [facility] [id number] [place] [address] 80625- 7758 Oct, [facility] [id number] [place] [address] 06753- 7661 Oct, [facility] [id number] [place] [address] 44664- 3390 Sep, [facility] [id number] [place] [address] 85577- 5407 Sep, [facility] [id number] [place] [address] 58886- 3605 Sep, [facility] [id number] [place] [address] 39288- 4431 Sep, Ventricular arrhythmia I49.9 [facility] [id number] [place] [address] 31653- 3574 Sep, Ventricular bigeminy I49.9 and Hypertension I10 [facility] [id number] [place] [address] 43208- 6696 Sep, Lumbago M54.5 and Ventricular bigeminy I49.9 [facility] [id number] [address]- 1699 Sep, [facility] [id number] [place] [address] 33410- 6452 Aug, [facility] [id number] [place] [address] 28499- 4116 Aug, [facility] [id number] [place] [address] 21569- 7236 Aug, [facility] [id number] 3825 Aug, [facility] [id number], [place] [address]- 0062 Aug, [facility] [id number], [place] [address]- 7493 Jul, [facility] [id number] 7032 Jun, [facility] [id number] 6340 May, [facility] [id number] 0900 May, [facility] [id number] 0233 May, Lumbago 724.2 and Depressive disorder, not elsewhere classified 311 [facility] [id number], [place] [address]- 0927 Apr, UTI (urinary tract infection) 599.0 [facility] [id number]- 9756 Apr, UTI (urinary tract infection) 599.0 and Depression 311 [facility] [id number], [place] [address]- 8956 Mar, [facility] [id number], [place] [address]- 4677 Mar, [facility] [id number], [place] [address]- 2762 Mar, [facility] [id number]- 1122 Mar, Unspecified essential hypertension 401.9 ; Lumbago 724.2 and Anxiety 300.00 [facility] [address] [place] [address]- 7890 Mar, [facility] [place] [facility] [address] [id number] [place] [address]- 5898 Feb, [facility] [place] [facility] [address] [id number] [place] [address]- 0892 Feb, [facility] [place] [facility] [address] [id number] [place] [address]- 4766 January, [facility] [place] [facility] [address] [id number] [place] [address]- 5603 Dec, [facility] [place] [facility] [address] [id number] [place] [address]- 9651 Dec, [facility] [place] [facility] [address] [id number] [place] [address]- 4160 Oct, [facility] [place] [facility] [address] [id number] [place] [address]- 4446 Oct, [facility] [place] [facility] [address] [id number] [place] [address]- 4306 Oct, [facility] [place] [facility] [address] [id number] [place] [address]- 5269 Oct, [facility] [place] [facility] [address] [facility] [id number] [place] [address]- 6843 Sep, [facility] [place] [facility] [address] [id number] [place] [address]- 0972 Sep, [facility] [place] [facility] [address] [id number] [place] [address]- 6594 Sep, [facility] [place] [facility] [address] [id number] [place] [address]- 1091 Sep, [facility] [place] [facility] [address] [id number] [place] [address]- 3734 Aug, [facility] [place] [facility] [address] [id number] [place] [address]- 7292 Aug, [facility] [place] [facility] [address] [id number] [place] [address]- 1242 Jul, [facility] [place] [facility] [address] [id number] [place] [address]- 5746 Jul, [facility] [place] [facility] [address] [id number] [place] [address]- 0006 Jun, [facility] [place] [facility] [address] [id number] [place] [address]- 9471 Jun, [facility] [place] [facility] [address] [id number] [place] [address]- 9392 Jun, [facility] [place] [facility] [address] [id number] [place] [address]- 1858 Jun, [facility] [place] [facility] [address] [id number] [place] [address]- 3761 Jun, [facility] [place] [facility] [address] [id number] [place] [address]- 4742 Jun, [facility] [place] [facility] [address] [id number] [place] [address]- 5507 May, [facility] [place] [facility] [address] [id number] [place] [address]- 4994 May, [facility] [place] [facility] [address] [id number] [place] [address]- 3811 Apr, [facility] [place] [facility] [address] [id number] [place] [address]- 1304 Apr, [facility] [place] [facility] [address] [id number] [place] [address]- 3491 Apr, [facility] [place] [facility] [address] [id number] [place] [address]- 6988 Apr, [facility] [place] [facility] [address] [id number] [place] [address]- 3537 Mar, [facility] [place] [facility] [address] [id number] [place] [address]- 3936 Mar, [facility] [place] [facility] [address] [id number] [place] [address]- 5132 Mar, [facility] [place] [facility] [address] [id number] [place] [address]- 9895 Mar, [facility] [place] [facility] [address] [id number] [place] [address]- 7604 Mar, [facility] [place] [facility] [address] [id number] [place] [address]- 0319 Mar, [facility] [place] [facility] [address] [id number] [place] [address]- 8166 Mar, [facility] [place] [facility] [address] [id number] [place] [address]- 5294 Mar, [facility] [place] [facility] [address] [id number] [place] [address]- 3176 Feb, [facility] [place] [facility] [address] [id number] [place] [address]- 7483 Feb, [facility] [place] [facility] [address] [id number] [place] [address]- 5170 January, [facility] [place] [facility] [address] [id number] [place] [address]- 9735 January, [facility] [place] [facility] [address] [id number] [place] [address]- 4002 January, [facility] [place] [facility] [address] [id number] [place] [address]- 1748 January, [facility] [place] [facility] [address] [id number] [place] [address]- 8784 Dec, [facility] [place] [facility] [address] [id number] [place] [address]- 2739 Dec, [facility] [place] [facility] [address] [id number] [place] [address]- 0573 Dec, [facility] [place] [facility] [address] [id number] [place] [address]- 2169 14 Dec, 2013 [facility] [place] [facility] [address] [id number] [place] [address]- 3866 13 Nov, 2013 [facility] [place] [facility] [address] [id number] [place] [address]- 4158 13 Nov, 2013 [facility] [place] [facility] [address] [id number] [place] [address]- 4954 Sep, [facility] [place] [facility] [address] [id number] [place] [address]- 3609 Sep, [facility] [place] [facility] [address] [id number] [place] [address]- 9070 Sep, [facility] [place] [facility] [address] [id number] [place] [address]- 1670 Sep, [facility] [place] [facility] [address] [id number] [place] [address]- 2268 Sep, [facility] [place] [facility] [address] [id number] [place] [address]- 9953 Sep, [facility] [place] [facility] [address] [id number] [place] [address]- 6757 Aug, [facility] [place] [facility] [address] [id number] [place] [address]- 8197 Aug, [facility] [place] [facility] [address] [id number] [place] [address]- 8305 Aug, [facility] [place] [facility] [address] [id number] [place] [address]- 3903 Aug, [facility] [place] [facility] [address] [id number] [place] [address]- 3829 Jul, [facility] [place] [facility] [address] [id number] [place] [address]- 7346 Jul, [facility] [place] [facility] [address] [id number] [place] [address]- 9656 Jun, [facility] [id number], [place] [address]- 5167 Jun, [facility] [id number], [place] [address]- 2546 Mar, [facility] [id number], [place] [address]- 2146 January, [facility] [id number] [address] Dec, [facility] [id number] [address] Dec, [facility] [id number] [place] [id number] Nov, [facility] [id number] [address] Nov, [facility] [id number] [address] Oct, [facility] [id number] [address] January, [facility] [id number], [place] [address] Dec, [facility] [id number], [place] [address] Sep, IMMUNIZATIONS No Known Immunizations SOCIAL HISTORY Never Assessed REASON FOR VISIT chest congestion, cough started Eloy Pratik PLAN OF CARE Activity Details Follow Up prn Reason: VITAL SIGNS Height 62 in 2017-05-22 Weight 163.6 lbs 2017-05-22 Temperature 97.9 degrees Fahrenheit 2017-05-22 Heart Rate 80 bpm 2017-05-22 Respiratory Rate 18 2017-05-22 BMI 29.92 kg/m2 2017-05-22 Blood pressure systolic 124 mmHg 2017-05-22 Blood pressure diastolic 80 mmHg 2017-05-22 MEDICATIONS Medication Instructions Dosage Frequency Start Date End Date Duration Status PredniSONE 20 MG Orally Once a day 2 tablet 24h May, May, 5 days Active Protonix 40 mg Orally twice a day 1 tablet 12h 30 Nov, 2016 30 day(s) Active ProAir HFA 108 (90 Base) MCG/ACT Inhalation every 4 hrs 2 puffs as needed 4h May, 5 days Active Cyclobenzaprine HCl 10 mg Orally Three times a day 1 tablet 8h 30 Active Tramadol HCl 50MG Orally, each fill must last 30 days every 6 hours 1 tablet 6h Active Zoloft 50 mg Orally Once a day 1 tablet 24h Sep, Active Metoprolol Succinate ER 50 MG Orally Once a day 1 tablet 24h Sep, Active Gabapentin 600MG TAKE ONE TABLET BY MOUTH THREE TIMES DAILY 30 Active Lipitor 10 MG Orally Once a [...]
--- OUTSIDE RECORDS SUMMARY | 2018-08-12 07:24 | XMS REPORT ---
Author Author JOHANNY KINNEY Organization [facility] Address [address] [place] [address] Care Team Providers Care Clinical Program Consultant Name Role Phone JOHANNY KINNEY Unavailable PROBLEMS Type Condition ICD9-CM Code ZMF45-WR Code Onset Dates Condition Status SNOMED Code Problem Neck pain M54.2 Active 07079713 Problem Gastroesophageal reflux disease, esophagitis presence not specified K21.9 Active 582001651 Problem Cervical disc disease M50.90 Active 989570896 Problem Chronic maxillary sinusitis J32.0 Active 96517006 Problem Right maxillary sinusitis J32.0 Active 71782005 Problem Mixed hyperlipidemia E78.2 Active 095154481 Problem Anxiety disorder, unspecified F41.9 Active 136988592 Problem Sinusitis chronic, frontal J32.1 Active 03889863 Problem Prediabetes R73.03 Active 775307873 Problem PVCs (premature ventricular contractions) I49.3 Active 91353945 Problem Reactive depression F32.9 Active 15373304 Problem Hypertension I10 Active 87946307 Problem Lumbago with sciatica, right side M54.41 Active 057989513 Problem Sciatica M54.30 Active 66266368 Problem Other chronic pain G89.29 Active [id number] ALLERGIES No Information ENCOUNTERS Encounter Location Date Diagnosis [facility] [id number] [address] Feb, Chronic maxillary sinusitis J32.0 [facility] [id number] [place] [address] 69236- 9361 14 Feb, 2018 Low back pain M54.5 [facility] [id number] [place] [address] 80704- 1254 06 Feb, 2018 Low back pain M54.5 [facility] [id number] [place] [address] 95875- 2194 Feb, Low back pain M54.5 [facility] [id number] [place] [address] 85143- 4995 January, [facility] [address] [address]17- 7565 January, Sinusitis chronic, frontal J32.1 [facility] [address] 8[address]30- [address] January, Lumbago with sciatica, right side M54.41 ; Cervical disc disease M50.90 ; Hypertension I10 and Gastroesophageal reflux disease, esophagitis presence not specified K21.9 [facility] [address] [address]38- 4597 Dec, Low back pain M54.5 [facility] [address] 87735- 7717 Dec, Low back pain M54.5 [facility] [address] 19876- 1289 Nov, [facility] [address] [address] Nov, Right maxillary sinusitis J32.0 [facility] [address] 49272- 0264 Nov, Low back pain M54.5 [facility] [id number] [place] [address] 26601 [address]4420 Oct, Sinusitis chronic, frontal J32.1 [facility] [id number] [place] [address] 24669- 1769 Oct, Neck pain M54.2 [facility] [address] 09452- 1902 Sep, Low back pain M54.5 [facility] [address] 04884- 3621 Sep, Neck pain M54.2 [facility] [address] 15654- 3699 Sep, Lumbago with sciatica, right side M54.41 ; Hypertension I10 ; Bronchitis J40 and Anxiety disorder, unspecified F41.9 [facility] [address] 37225- 3805 Aug, Neck pain M54.2 and Low back pain M54.5 [place] [place] [address] [address]20- 3559 Jul, Neck pain M54.2 and Low back pain M54.5 [place] [address] 13618- 2377 Jul, Neck pain M54.2 [place] [place] [address] 26910- 4136 Jun, Low back pain M54.5 and Neck pain M54.2 [place] [address] 85080- 9557 May, Low back pain M54.5 and Neck pain M54.2 [place] [address] 75481- 8094 May, [facility] [address] 16516 [address] 14 May, 2017 Bronchitis J40 [facility] [address] 70222- 9672 Apr, Hyperglycemia R73.9 [place] [address] 54579- 2912 Apr, Hyperglycemia R73.9 [facility] [address] 35241- 2363 Apr, Gastroesophageal reflux disease, esophagitis presence not specified K21.9 ; Mixed hyperlipidemia E78.2 ; Neck pain M54.2 and PVCs ( premature ventricular contractions) I49.3 [facility] [id number] [place] [address] 36335- 8780 Mar, Low back pain M54.5 [facility] [id number] [place] [address] 73761- 6549 Feb, Low back pain M54.5 and Gastroesophageal reflux disease, esophagitis presence not specified K21.9 [facility] [address] 08334- 1691 January, Dyspnea on exertion R06.09 [facility] [address] 53308- 1034 January, Hypertension I10 [facility] [address] 00388- 0126 January, [facility] [address] 64878- 2333 January, Low back pain M54.5 [facility] [id number] [place] [address] 88188- 6452 January, Low back pain M54.5 [facility] [id number] [place] [address] 08023- 8755 January, Gastroesophageal reflux disease, esophagitis presence not specified K21.9 ; Lumbago with sciatica, right side M54.41 and Dyspnea on exertion R06.09 [facility] [id number] [place] [address] 52613- 5983 Nov, [facility] [id number] [place] [address] 75899- 0703 Nov, [facility] [address] 24428- 1575 Nov, Gastroesophageal reflux disease, esophagitis presence not specified K21.9 and Bronchitis J40 [facility] [id number] [place] [address] 34574- 4274 Oct, Low back pain M54.5 and Anxiety disorder, unspecified F41.9 [facility] [id number] [place] [address] 05810- 8276 10 Oct, 2016 Bronchitis J40 ; Hypertension I10 ; Sciatica M54.30 and Paresthesias R20.2 [facility] [address] [place] [address] [phone] Sep, Dental examination Z01.20 [facility] [id number] [place] [address] [id number] Sep, Dental examination Z01.20 and Dental caries K02.9 [facility] [id number] [place] [address] 29732- 8669 Aug, [facility] [id number] [place] [address] 06124- 1189 Jul, Low back pain M54.5 and Anxiety disorder, unspecified F41.9 [facility] [id number] [place] [address] 12997- 3372 Jul, [facility] [id number] [place] [address] 51739- 3138 Jun, Lumbago with sciatica, right side M54.41 ; Cervical disc disease M50.90 and Gastroesophageal reflux disease, esophagitis presence not specified K21.9 [facility] [id number] [place] [address] 04557- 7274 Jun, [facility] [id number] [place] [address] 32318- 1435 Jun, [facility] [id number] [place] [address] 67538- 0283 Jun, [facility] [id number] [place] [address] 27883- 4105 Jun, [facility] [id number] [place] [address] 71322- 9211 Jun, [facility] [address] [place] [address] 1410 May, [facility] [id number] [place] [address] 95198- 4399 May, [facility] [address] [place] [address] 48194- 3146 May, [facility] [address] [place] [address] 12719- 7864 Apr, [facility] [id number] [place] [address] 70765- 6321 Apr, [facility] [id number] [place] [address] 56408- 7495 Apr, [facility] [id number] [place] [address] 74882- 9050 Apr, Cervical disc disease M50.90 [facility] [id number] [place] [address] 16687- 5755 Apr, [facility] [id number] [place] [address] 47720- 3229 Apr, Neck pain M54.2 ; Hypertension I10 and Reactive depression F32.9 [facility] [id number] [place] [address] 63697- 8349 Mar, [facility] [id number] [place] [address] 43628- 1623 Mar, [facility] [id number] [place] [address] 45737- 1973 Mar, [facility] [id number] [place] [address] 34236- 2668 Feb, Sciatica M54.30 [facility] [id number] [place] [address] 99756- 9371 Feb, Paresthesias R20.2 ; Sciatica M54.30 and Reactive depression F32.9 [facility] [id number] [place] [address] 83296- 9562 Feb, [facility] [id number] [place] [address] 07181- 9860 January, [facility] [address] 89091- 3934 January, Hyperlipemia, mixed E78.2 ; Other abnormalities of heart beat R00.8 and Anxiety F41.9 [facility] [address] 77180- 4668 January, [facility] [address] 97295- 6686 January, Low back pain M54.5 [facility] [id number] [place] [address] 57156- 2027 January, Anxiety disorder, unspecified F41.9 [facility] [address] 28947- 6881 18 Dec, 2015 Ventricular bigeminy I49.9 [facility] [id number] [place] [address] 38052- 4432 Dec, [facility] [id number] [place] [address] 96624- 5011 Dec, Low back pain M54.5 [facility] [id number] [place] [address] 84557- 7778 Dec, Sciatica M54.30 [facility] [id number] [place] [address] 85607- 2143 Nov, Major depressive disorder, single episode, unspecified F32.9 [facility] [address] 25892- 1154 Nov, Sciatica M54.30 [facility] [id number] [place] [address] 07553- 1951 Nov, [facility] [id number] [place] [address] 26016- 4601 Nov, [facility] [id number] [place] [address] 95560- 8146 Nov, Anxiety disorder, unspecified F41.9 [facility] [id number] [place] [address] 67914- 7600 Nov, [facility] [id number] [place] [address] 27087- 2245 Nov, Depressed F32.9 and Anxiety F41.9 [facility] [id number] [place] [address] 70863- 3862 Nov, Lumbago 724.2 ; Sciatica M54.30 and PVCs (premature ventricular contractions) I49.3 [facility] [id number] [place] [address] 97631- 2413 Oct, [facility] [id number] [place] [address] 63510- 9655 Oct, [facility] [id number] [place] [address] 77155- 8682 Oct, Sciatica M54.30 and Hypertension I10 [facility] [id number] [place] [address] 55112- 1795 Oct, [facility] [id number] [place] [address] 18544- 8215 Oct, [facility] [id number] [place] [address] 03599- 2168 Oct, [facility] [id number] [place] [address] 40911- 4299 Sep, [facility] [id number] [place] [address] 63103- 7625 Sep, [facility] [id number] [place] [address] 69014- 7211 Sep, [facility] [id number] [place] [address] 37466- 8882 Sep, Ventricular arrhythmia I49.9 [facility] [id number] [place] [address] 96689- 8916 Sep, Ventricular bigeminy I49.9 and Hypertension I10 [facility] [id number] [place] [address] 69566- 9169 Sep, Lumbago M54.5 and Ventricular bigeminy I49.9 [facility] [id number] [place] [address] 33189- 1284 Sep, [facility] [id number] [place] [address] 62775- 8972 Aug, [facility] [id number] [place] [address] 33933- 1477 Aug, [facility] [id number] [place] [address] 05088- 2106 Aug, [facility] [id number] [place] [address] 48349- 4816 Aug, [facility] [id number] [place] [address] 03139- 7984 Aug, [facility] [id number] [place] [address] 68575- 0672 Jul, [facility] [address] [place] [address] 06119- 2766 Jun, [facility] [id number] [place] [address] 07501- 3884 May, [facility] [id number] [place] [address] 23361- 3785 May, [facility] [address] [address]- 1157 May, Lumbago 724.2 and Depressive disorder, not elsewhere classified 311 [facility] [address] [address]- 9427 Apr, UTI (urinary tract infection) 599.0 [facility] [address] 7331 Apr, UTI (urinary tract infection) 599.0 and Depression 311 [facility] [address], [place] [address]- 4792 Mar, [facility] [address], [place] [address]- 7802 Mar, [facility] [address] [address]- 4250 Mar, [facility] [address], [place] [address]- 5859 Mar, Unspecified essential hypertension 401.9 ; Lumbago 724.2 and Anxiety 300.00 [facility] [address] [address]- 4101 Mar, [facility] [address] [address]- 1925 Feb, [facility] [address] [address]- 2753 Feb, [facility] [id number] [address]- 8220 January, [facility] [id number] [address]- 8914 Dec, [facility] [id number] [address]- 3263 Dec, [facility] [id number] 1839 Oct, [facility] [id number] 5853 Oct, [facility] [address] [place] [address]- 1773 Oct, 2014 [facility] [place] [facility] [address] [id number] [place] [address]- 0988 Oct, [facility] [place] [facility] [address] [id number] [place] [address]- 1275 Sep, [facility] [place] [facility] [address] [id number] [place] [address]- 7581 Sep, [facility] [place] [facility] [address] [id number] [place] [address]- 6015 Sep, [facility] [place] [facility] [address] [id number] [place] [address]- 6518 Sep, [facility] [place] [facility] [address] [id number] [place] [address]- 2865 Aug, [facility] [place] [facility] [address] [id number] [place] [address]- 9417 Aug, [facility] [place] [facility] [address] [id number] [place] [address]- 8018 Jul, [facility] [place] [facility] [address] [id number] [place] [address]- 9049 Jul, [facility] [place] [facility] [address] [facility] [id number] [place] [address]- 1179 Jun, [facility] [place] [facility] [address] [id number] [place] [address]- 3397 Jun, [facility] [place] [facility] [address] [id number] [place] [address]- 2941 Jun, [facility] [place] [facility] [address] [id number] [place] 5173 Jun, [facility] [place] [facility] [address] [id number] [place] [address]- 0201 Jun, [facility] [place] [facility] [address] [id number] [place] 0160 Jun, [facility] [place] [facility] [address] [id number] [place] [address]- 2274 May, [facility] [place] [facility] [address] [id number] [place] [address]- 1430 May, [facility] [place] [facility] [address] [id number] [place] [address]- 9997 Apr, [facility] [place] [facility] [address] [id number] [place] [address]- 0783 Apr, [facility] [place] [facility] [address] [id number] [place] [address]- 2780 Apr, [facility] [place] [facility] [address] [id number] [place] [address]- 7281 Apr, [facility] [place] [facility] [address] [id number] [place] [address]- 0849 Mar, [facility] [place] [facility] [address] [id number] [place] [address]- 8287 Mar, [facility] [place] [facility] [address] [id number] [place] [address]- 6279 Mar, [facility] [place] [facility] [address] [id number] [place] [address]- 9656 Mar, [facility] [place] [facility] [address] [id number] [place] [address]- 4761 Mar, [facility] [place] [facility] [address] [id number] [place] [address]- 8934 Mar, [facility] [place] [facility] [address] [id number] [place] [address]- 8717 Mar, [facility] [place] [facility] [address] [id number] [place] [address]- 3348 Mar, [facility] [place] [facility] [address] [id number] [place] [address]- 9189 Feb, [facility] [place] [facility] [address] [id number] [place] [address]- 7984 Feb, [facility] [place] [facility] [address] [id number] [place] [address]- 5941 January, [facility] [place] [facility] [address] [id number] [place] [address]- 1587 January, [facility] [place] [facility] [address] [id number] [place] 9181 January, [facility] [place] [facility] [address] [id number] [place] [address]- 2013 January, [facility] [place] [facility] [address] [id number] [place] [address]- 0443 Dec, [facility] [place] [facility] [address] [id number] [place] [address]- 6932 Dec, [facility] [place] [facility] [address] [id number] [place] [address]- 8268 Dec, [facility] [place] [facility] [address] [id number] [place] [address]- 6655 Dec, [facility] [place] [facility] [address] [id number] [place] [address]- 7523 Nov, [facility] [place] [facility] [address] [id number] [place] [address]- 3417 Nov, [facility] [place] [facility] [address] [id number] [place] [address]- 0000 Sep, [facility] [place] [facility] [address] [id number] [place] [address]- 7150 Sep, [facility] [place] [facility] [address] [id number] [place] [address]- 1886 Sep, [facility] [place] [facility] [address] [id number] [place] [address]- 5482 Sep, [facility] [place] [facility] [address] [id number] [place] [address]- 3362 Sep, [facility] [place] [facility] [address] [id number] [place] [address] Sep, [facility] [address] [id number] [place] [address] Aug, [facility] [address] [id number] [place] [address] Aug, [facility] [address] [id number] [place] [address] Aug, [facility] [address] [id number] [place] [address] Aug, [facility] [address] [id number] [place] [address] Jul, [facility] [address] [id number] [place] [address] Jul, [facility] [address] [id number] [place] [address] Jun, [facility] [address] [id number] [place] [address] Jun, [facility] [address] [id number] [place] [address] Mar, [facility] [address] [id number] [place] [address] January, [facility] [address] [id number] [place] [address] Dec, [facility] [address] [id number] [place] [address] Dec, [facility] [place] [facility] [address] [id number] [place] [address] Nov, [facility] [place] [facility] [address] [id number] [place] [address] Nov, [facility] [address] [id number] [place] [address] Oct, [facility] [address] [facility] [id number] [place] [address] January, [facility] [address] [facility] [id number] [address] Dec, [facility] [address] [facility] [id number] [place] [address] Sep, IMMUNIZATIONS No Known Immunizations SOCIAL HISTORY [...]
--- OUTSIDE RECORDS SUMMARY | 2018-08-12 07:25 | XMS REPORT ---
Author Author JOHANNY KINNEY Organization [facility] Address [address] [place] [address] Care Team Providers Care Oncology Account Specialist Name Role Phone JOHANNY KINNEY Unavailable PROBLEMS Type Condition ICD9-CM Code [id number] Code Onset Dates Condition Status SNOMED Code Problem Reactive depression F32.9 Active 05133991 Problem Other chronic pain G89.29 Active 48460592 Problem Lumbago with sciatica, right side M54.41 Active 055905629 Problem Hypertension I10 Active 13989673 Problem Sciatica M54.30 Active 96748069 Problem PVCs (premature ventricular contractions) I49.3 Active 94095924 Problem Prediabetes R73.03 Active 267214485 Problem Mixed hyperlipidemia E78.2 Active 333873080 Problem Cervical disc disease M50.90 Active 653906925 Problem Neck pain M54.2 Active 44767538 Problem Anxiety disorder, unspecified F41.9 Active 869991063 Problem Gastroesophageal reflux disease, esophagitis presence not specified K21.9 Active 241917528 ALLERGIES Unknown Allergies SOCIAL HISTORY No smoking Hx information available PLAN OF CARE VITAL SIGNS MEDICATIONS Medication Instructions Dosage Frequency Start Date End Date Duration Status Cyclobenzaprine HCl 10 mg Orally Three times a day 1 tablet 8h 10 Active RESULTS No Results PROCEDURES No Known procedures IMMUNIZATIONS No Known Immunizations
--- OUTSIDE RECORDS SUMMARY | 2018-08-12 07:28 | XMS REPORT | Continuity of Care Document ---
Author Author [facility] C[facility] of [facility] of [facility] Address Unknown Phone Unavailable Allergies Active Description Code Type Severity Reaction Onset Reported/Identified Relationship to Patient Clinical Status Yes No Allergy Information Available [id number] Drug Allergy Unknown N/A 2012 Yes No Known Drug Allergies [id number] Drug Allergy Unknown N/A 04/28/2018 Medications There is no data. Problems Date Dx Coded Attending Type Code Diagnosis Diagnosed By 08/07/1121 JOHANNY KINNEY MD, Ot M54.2 CERVICALGIA 09/21/2010 300.00 ANXIETY UNSPEC 09/21/2010 305.1 NONDEPENDENT TOBACCO USE DISORDER 09/21/2010 683 Acute Lymphadenitis 09/21/2010 780.4 Dizziness And Giddiness 09/21/2010 786.09 Respiratory Abnormality Other 09/21/2010 786.59 Other Chest Pain 09/21/2010 JOHANNY KINNEY MD 300.00 ANXIETY UNSPEC 09/21/2010 JOHANNY KINNEY MD 305.1 NONDEPENDENT TOBACCO USE DISORDER 09/21/2010 JOHANNY KINNEY MD Acute Lymphadenitis 09/21/2010 JOHANNY KINNEY MD 780.4 Dizziness And Giddiness 09/21/2010 JOHANNY KINNEY MD 786.09 Respiratory Abnormality Other 09/21/2010 JOHANNY KINNEY MD 786.59 Other Chest Pain 09/21/2010 JOHANNY KINNEY MD 300.00 ANXIETY UNSPEC 09/21/2010 JOHANNY KINNEY MD 305.1 NONDEPENDENT TOBACCO USE DISORDER 09/21/2010 JOHANNY KINNEY MD 68Felix Acute Lymphadenitis 09/21/2010 JOHANNY KINNEY MD 780.4 Dizziness And Giddiness 09/21/2010 JOHANNY KINNEY MD 786.09 Respiratory Abnormality Other 09/21/2010 JOHANNY KINNEY MD 786.59 Other Chest Pain 09/21/2010 JOHANNY KINNEY MD 300.00 ANXIETY UNSPEC 09/21/2010 JOHANNY KINNEY MD 305.1 NONDEPENDENT TOBACCO USE DISORDER 09/21/2010 JOHANNY KINNEY MD Acute Lymphadenitis 09/21/2010 JOHANNY KINNEY MD 780.4 Dizziness And Giddiness 09/21/2010 JOHANNY KINNEY MD 786.09 Respiratory Abnormality Other 09/21/2010 GREGORIA MEJIA, JOHANNY 786.59 Other Chest Pain 09/21/2010 JOHANNY KINNEY MD 300.00 ANXIETY UNSPEC 09/21/2010 GREGORIA MEJIA, JOHANNY 305.1 NONDEPENDENT TOBACCO USE DISORDER 09/21/2010 JOHANNY KINNEY MD Acute Lymphadenitis 09/21/2010 JOHANNY KINNEY MD 780.4 Dizziness And Giddiness 09/21/2010 JOHANNY KINNEY MD 786.09 Respiratory Abnormality Other 09/21/2010 JOHANNY KINNEY MD 786.59 Other Chest Pain 09/21/2010 JOHANNY KINNEY MD 300.00 ANXIETY UNSPEC 09/21/2010 JOHANNY KINNEY MD 305.1 NONDEPENDENT TOBACCO USE DISORDER 09/21/2010 JOHANNY KINNEY MD Acute Lymphadenitis 09/21/2010 JOHANNY KINNEY MD 780.4 Dizziness And Giddiness 09/21/2010 JOHANNY KINNEY MD 786.09 Respiratory Abnormality Other 09/21/2010 JOHANNY KINNEY MD 786.59 Other Chest Pain 09/21/2010 JOHANNY KINNEY MD 300.00 ANXIETY UNSPEC 09/21/2010 JOHANNY KINNEY MD 305.1 NONDEPENDENT TOBACCO USE DISORDER 09/21/2010 JOHANNY KINNEY MD Acute Lymphadenitis 09/21/2010 JOHANNY KINNEY MD 780.4 Dizziness And Giddiness 09/21/2010 JOHANNY KINNEY MD 786.09 Respiratory Abnormality Other 09/21/2010 JOHANNY KINNEY MD 786.59 Other Chest Pain 09/21/2010 JOHANNY KINNEY MD 300.00 ANXIETY UNSPEC 09/21/2010 JOHANNY KINNEY MD 305.1 NONDEPENDENT TOBACCO USE DISORDER 09/21/2010 JOHANNY KINNEY MD Acute Lymphadenitis 09/21/2010 JOHANNY KINNEY MD 780.4 Dizziness And Giddiness 09/21/2010 JOHANNY KINNEY MD 786.09 Respiratory Abnormality Other 09/21/2010 JOHANNY KINNEY MD 786.59 Other Chest Pain 10/16/2012 Ot 401.9 HYPERTENSION NOS 10/16/2012 Ot 786.50 CHEST PAIN NOS 10/16/2012 Ot V15.81 HX OF PAST NONCOMPLIANCE 10/27/2012 401.9 UNSPECIFIED ESSENTIAL HYPERTENSION 10/27/2012 GREGORIA MEJIA, JOHANNY 401.9 UNSPECIFIED ESSENTIAL HYPERTENSION 10/27/2012 GREGORIA MEJIA, JOHANNY 401.9 UNSPECIFIED ESSENTIAL HYPERTENSION 10/27/2012 GREGORIA MEJIA, JOHANNY 401.9 UNSPECIFIED ESSENTIAL HYPERTENSION 10/27/2012 GREGORIA MEJIA, JOHANNY 401.9 UNSPECIFIED ESSENTIAL HYPERTENSION 10/27/2012 GREGORIA MEJIA, JOHANNY 401.9 UNSPECIFIED ESSENTIAL HYPERTENSION 10/27/2012 GREGORIA MEJIA, JOHANNY 401.9 UNSPECIFIED ESSENTIAL HYPERTENSION 10/27/2012 GREGORIA MEJIA, JOHANNY 401.9 UNSPECIFIED ESSENTIAL HYPERTENSION 12/10/2012 GREGORIA MEJIA, JOHANNY 728.87 MUSCLE WEAKNESS (GENERALIZED) 12/10/2012 JOHANNY KINNEY MD 728.87 MUSCLE WEAKNESS (GENERALIZED) 12/10/2012 JOHANNY KINNEY MD 728.87 MUSCLE WEAKNESS (GENERALIZED) 12/10/2012 JOHANNY KINNEY MD 728.87 MUSCLE WEAKNESS (GENERALIZED) 12/10/2012 JOHANNY KINNEY MD 728.87 MUSCLE WEAKNESS (GENERALIZED) 12/10/2012 JOHANNY KINNEY MD 728.87 MUSCLE WEAKNESS (GENERALIZED) 08/30/2013 JOHANNY KINNEY MD 289.0 POLYCYTHEMIA SECONDARY 08/30/2013 JOHANNY KINNEY MD 724.2 LUMBAGO 08/30/2013 JOHANNY KINNEY MD 289.0 POLYCYTHEMIA SECONDARY 08/30/2013 JOHANNY KINNEY MD 724.2 LUMBAGO 08/30/2013 JOHANNY KINNEY MD 289.0 POLYCYTHEMIA SECONDARY 08/30/2013 JOHANNY KINNEY MD 724.2 LUMBAGO 08/30/2013 JOHANNY KINNEY MD 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.0 POLYCYTHEMIA SECONDARY 08/30/2013 JOHANNY KINNEY MD 724.2 LUMBAGO 09/29/2013 JOHANNY KINNEY MD 790.29 ABNORMAL GLUCOSE 09/29/2013 GREGORIA MEJIA, JOHANNY 790.29 ABNORMAL GLUCOSE 09/29/2013 JOHANNY KINNEY MD 790.29 ABNORMAL GLUCOSE 06/28/2014 JOHANNY KINNEY MD 716.90 UNSPECIFIED ARTHROPATHY SITE UNSPECIFIED 04/04/2015 MARY CARTAGENA MD Ot 305.1 TOBACCO USE DISORDER 04/04/2015 MARY CARTAGENA MD Ot 492.8 EMPHYSEMA NEC 04/04/2015 MARY CARTAGENA MD Ot 590.80 PYELONEPHRITIS NOS 04/04/2015 MARY CARTAGENA MD Ot 789.09 ABDOMINAL PAIN, OTHER SPECIFIED SITE 04/04/2015 MARY CARTAGENA MD Ot 790.99 BLOOD EXAM - OTH NONSPECIFIC FINDINGS 04/04/2015 MARY CARTAGENA MD Ot V58.69 OT MED,LT,CURRENT USE 04/04/2015 Ot 305.1 04/04/2015 Ot 683 04/04/2015 Ot 305.1 04/04/2015 Ot 683 09/29/2015 VIOLA AGARWAL MD Ot F17.210 NICOTINE DEPENDENCE, CIGARETTES, UNCOMPL 09/29/2015 VIOLA AGARWAL MD Ot I10 ESSENTIAL (PRIMARY) HYPERTENSION 09/29/2015 VIOLA AGARWAL MD Ot I95.1 ORTHOSTATIC HYPOTENSION 09/29/2015 VIOLA AGARWAL MD Ot M54.5 LOW BACK PAIN 09/29/2015 VIOLA AGARWAL MD Ot R00.2 PALPITATIONS 09/29/2015 VIOLA AGARWAL MD Ot R00.8 OTHER ABNORMALITIES OF HEART BEAT 09/29/2015 VIOLA AGARWAL MD Ot R06.00 DYSPNEA, UNSPECIFIED 09/29/2015 VIOLA AGARWAL MD Ot R07.2 PRECORDIAL PAIN 10/02/2015 VIOLA AGARWAL MD Ot I49.9 10/02/2015 VIOLA AGARWAL MD Ot R07.9 10/24/2015 TRISTAN BOOKER MD Ot F17.210 NICOTINE DEPENDENCE, CIGARETTES, UNCOMPL 10/24/2015 TRISTAN BOOKER MD Ot I10 ESSENTIAL (PRIMARY) HYPERTENSION 10/24/2015 TRISTAN BOOKER MD Ot R07.89 OTHER CHEST PAIN 10/24/2015 TRISTAN BOOKER MD Ot Z79.899 OTHER PRODUCT DEVELOPMENT DIRECTOR (CURRENT) DRUG THERAPY 10/26/2015 VIOLA AGARWAL MD Ot I49.9 10/26/2015 VIOLA AGARWAL MD Ot R07.9 11/25/2015 HARRY ALSTON MD Ot F17.210 NICOTINE DEPENDENCE, CIGARETTES, UNCOMPL 11/25/2015 HARRY ALSTON MD Ot R00.8 OTHER ABNORMALITIES OF HEART BEAT 11/28/2015 HARRY ALSTON MD Ot F17.210 11/28/2015 HARRY ALSTON MD Ot R00.8 12/27/2015 FARHAN WARREN Ot S90.01XA CONTUSION OF RIGHT ANKLE, INITIAL ENCOUN 12/27/2015 FARHAN WARREN Ot S90.31XA CONTUSION OF RIGHT FOOT, INITIAL ENCOUNT 12/27/2015 FARHAN WARREN Ot W31.89XA CONTACT WITH OTHER SPECIFIED MACHINERY, 12/27/2015 FARHAN WARREN Ot Y92.[address] [facility] NON-INSTITUT (PRIVATE 12/27/2015 FARHAN WARREN Ot Y99.8 OTHER EXTERNAL CAUSE STATUS 12/28/2015 VIOLA AGARWAL MD Ot I49.9 CARDIAC ARRHYTHMIA, UNSPECIFIED 12/28/2015 VIOLA AGARWAL MD Ot R07.9 CHEST PAIN, UNSPECIFIED 12/28/2015 FARHAN WARREN Ot S90.01XA CONTUSION OF RIGHT ANKLE, INITIAL ENCOUN 12/28/2015 FARHAN WARREN Ot S90.31XA CONTUSION OF RIGHT FOOT, INITIAL ENCOUNT 12/28/2015 FARHAN WARREN Ot W31.89XA CONTACT WITH OTHER SPECIFIED MACHINERY, 12/28/2015 FARHAN WARREN Ot Y92.[address] [facility] NON-INSTITUT (PRIVATE 12/28/2015 FARHAN WARREN Ot Y99.8 OTHER EXTERNAL CAUSE STATUS 12/29/2015 VIOLA AGARWAL MD Ot I49.9 CARDIAC ARRHYTHMIA, UNSPECIFIED 12/29/2015 VIOLA AGARWAL MD Ot R07.9 CHEST PAIN, UNSPECIFIED 02/12/2016 Ot 305.1 TOBACCO USE DISORDER 02/12/2016 Ot 683 ACUTE LYMPHADENITIS 02/12/2016 VIOLA AGARWAL MD Ot I49.9 CARDIAC ARRHYTHMIA, UNSPECIFIED 02/12/2016 VIOLA AGARWAL MD Ot R07.9 CHEST PAIN, UNSPECIFIED 04/23/2016 ANY MEJIA, VIOLA Argueta Ot I49.9 CARDIAC ARRHYTHMIA, UNSPECIFIED 04/23/2016 ANY MEJIA, VIOLA Argueta Ot R07.9 CHEST PAIN, UNSPECIFIED 04/26/2016 GREGORIA MEJIA, JOHANNY Fry Ot M54.2 CERVICALGIA 05/24/2016 JOHANNY KINNEY MD Ot M54.2 CERVICALGIA 05/30/2016 JOHANNY KINNEY MD Ot M54.2 CERVICALGIA 06/18/2016 DEL DUBOSE MD Ot E04.1 NONTOXIC SINGLE THYROID NODULE 06/18/2016 DEL DUBOSE MD Ot R22.1 LOCALIZED SWELLING, MASS AND LUMP, NECK 06/18/2016 DEL DUBOSE MD Ot R53.83 OTHER FATIGUE 06/26/2016 DEL DUBOSE MD Ot E04.1 NONTOXIC SINGLE THYROID NODULE 06/26/2016 DEL DUBOSE MD Ot R22.1 LOCALIZED SWELLING, MASS AND LUMP, NECK 06/26/2016 DEL DUBOSE MD Ot R53.83 OTHER FATIGUE 08/13/2016 ROBIN HOLLINS K Ot E78.2 MIXED HYPERLIPIDEMIA 08/13/2016 GILDA ZEPEDA ROBIN K Ot I10 ESSENTIAL (PRIMARY) HYPERTENSION 08/13/2016 ROBNI HOLLINS K Ot R00.2 PALPITATIONS 08/13/2016 CHINO HOLLINSDITH K Ot E78.2 MIXED HYPERLIPIDEMIA 08/13/2016 GILDA ZEPEDA ROBIN K Ot I10 ESSENTIAL (PRIMARY) HYPERTENSION 08/13/2016 TONE HOLLINSTH K Ot R00.2 PALPITATIONS 08/28/2016 CHINO HOLLINSDITH K Ot E78.2 MIXED HYPERLIPIDEMIA 08/28/2016 GILDA ZEPEDA, ROBIN K Ot I10 ESSENTIAL (PRIMARY) HYPERTENSION 08/28/2016 ROBIN HOLLINS K Ot R00.2 PALPITATIONS 09/04/2016 DEL DUBOSE MD Ot R22.1 LOCALIZED SWELLING, MASS AND LUMP, NECK 09/04/2016 DEL DUBOSE MD Ot Z01.811 ENCOUNTER FOR PREPROCEDURAL RESPIRATORY 09/04/2016 DEL DUBOSE MD Ot Z01.812 ENCOUNTER FOR PREPROCEDURAL LABORATORY E 09/04/2016 DEL DUBOSE MD Ot Z11.2 ENCOUNTER FOR SCREENING FOR OTHER BACTER 09/05/2016 DEL DUBOSE MD Ot R22.1 LOCALIZED SWELLING, MASS AND LUMP, NECK 09/05/2016 DEL DUBOSE MD Ot Z01.811 ENCOUNTER FOR PREPROCEDURAL RESPIRATORY 09/05/2016 DEL DUBOSE MD Ot Z01.812 ENCOUNTER FOR PREPROCEDURAL LABORATORY E 09/05/2016 DEL DUBOSE MD Ot Z11.2 ENCOUNTER FOR SCREENING FOR OTHER BACTER 09/06/2016 DEL DUBOSE MD Ot 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 09/06/2016 DEL DUBOSE MD Ot R22.1 LOCALIZED SWELLING, MASS AND LUMP, NECK 01/30/2017 EUFEMIA RAMOS DO Ot K21.9 GASTRO-ESOPHAGEAL REFLUX DISEASE WITHOUT 01/30/2017 EUFEMIA RAMOS DO Ot Z01.818 ENCOUNTER FOR OTHER PREPROCEDURAL EXAMIN 01/30/2017 EUFEMIA RAMOS DO Ot Z12.11 ENCOUNTER FOR SCREENING FOR MALIGNANT NE 02/04/2017 EUFEMIA RAMOS DO Ot F17.210 NICOTINE DEPENDENCE, CIGARETTES, UNCOMPL 02/04/2017 EUFEMIA RAMOS DO Ot F32.9 MAJOR DEPRESSIVE DISORDER, SINGLE EPISOD 02/04/2017 EUFEMIA RAMOS DO Ot F41.9 ANXIETY DISORDER, UNSPECIFIED 02/04/2017 EUFEMIA RAMOS DO Ot I08.1 RHEUMATIC DISORDERS OF BOTH MITRAL AND T 02/04/2017 EUFEMIA RAMOS DO Ot I10 ESSENTIAL (PRIMARY) HYPERTENSION 02/04/2017 EUFEMIA RAMOS DO Ot J43.9 EMPHYSEMA, UNSPECIFIED 02/04/2017 EUFEMIA RAMOS DO Ot K21.9 GASTRO-ESOPHAGEAL REFLUX DISEASE WITHOUT 02/04/2017 EUFEMIA RAMOS DO Ot K22.10 ULCER OF ESOPHAGUS WITHOUT BLEEDING 02/04/2017 EUFEMIA RAMOS DO Ot K44.9 DIAPHRAGMATIC HERNIA WITHOUT OBSTRUCTION 02/04/2017 EUFEMIA RAMOS DO Ot N28.9 DISORDER OF KIDNEY AND URETER, UNSPECIFI 02/04/2017 EUFEMIA RAMOS DO Ot Z12.11 ENCOUNTER FOR SCREENING FOR MALIGNANT NE 02/14/2017 Ot V58.69 OTH MED,LT, CURRENT USE 02/14/2017 Ot V58.83 ENCOUNTER FOR THERAPEUTIC DRUG MONITORIN 02/14/2017 Ot 401.9 HYPERTENSION NOS 02/14/2017 Ot 414.00 CORON ATHEROSCLER NOS TYPE VESSEL, NATIV 02/21/2017 Ot V58.69 OTH MED,LT, CURRENT USE 02/21/2017 Ot V58.83 ENCOUNTER FOR THERAPEUTIC DRUG MONITORIN 02/21/2017 Ot 401.9 HYPERTENSION NOS 02/21/2017 Ot 414.00 CORON ATHEROSCLER NOS TYPE VESSEL, NATIV 04/11/2017 VIOLA AGARWAL MD Ot G47.33 OBSTRUCTIVE SLEEP APNEA (ADULT) (PEDIATR 04/14/2017 VIOLA AGARWAL MD, Ot G47.33 OBSTRUCTIVE SLEEP APNEA (ADULT) (PEDIATR 05/15/2017 ABIEL SMITH Ot G47.33 OBSTRUCTIVE SLEEP APNEA (ADULT) (PEDIATR 05/15/2017 ABIEL SMITH Ot I10 ESSENTIAL (PRIMARY) HYPERTENSION 05/15/2017 ABIEL SMITH Ot R06.83 SNORING 11/07/2017 VIOLA AGARWAL MD Ot I49.9 CARDIAC ARRHYTHMIA, UNSPECIFIED 11/07/2017 VIOLA AGARWAL MD Ot R07.9 CHEST PAIN, UNSPECIFIED 11/07/2017 DEL DUBOSE MD Ot E04.1 NONTOXIC SINGLE THYROID NODULE 11/07/2017 DEL DUBOSE MD Ot R22.1 LOCALIZED SWELLING, MASS AND LUMP, NECK 11/07/2017 DEL DUBOSE MD Ot R53.83 OTHER FATIGUE 11/07/2017 ROBIN HOLLINS Ot E78.2 MIXED HYPERLIPIDEMIA 11/07/2017 ROBIN HOLLINS Ot I10 ESSENTIAL (PRIMARY) HYPERTENSION 11/07/2017 ROBIN HOLLINS Ot R00.2 PALPITATIONS 11/07/2017 VIOLA AGARWAL MD Ot I49.9 CARDIAC ARRHYTHMIA, UNSPECIFIED 11/07/2017 VIOLA AGARWAL MD Ot R07.9 CHEST PAIN, UNSPECIFIED 11/07/2017 DEL DUBOSE MD Ot E04.1 NONTOXIC SINGLE THYROID NODULE 11/07/2017 DEL DUBOSE MD Ot R22.1 LOCALIZED SWELLING, MASS AND LUMP, NECK 11/07/2017 DEL UDBOSE MD Ot R53.83 OTHER FATIGUE 11/07/2017 ROBIN HOLLINS Ot E78.2 MIXED HYPERLIPIDEMIA 11/07/2017 ROBIN HOLLINS Ot I10 ESSENTIAL (PRIMARY) HYPERTENSION 11/07/2017 ROBIN HOLLINS Ot R00.2 PALPITATIONS 11/13/2017 VIOLA AGARWAL MD Ot I49.9 CARDIAC ARRHYTHMIA, UNSPECIFIED 11/13/2017 VIOLA AGARWAL MD Ot R07.9 CHEST PAIN, UNSPECIFIED 11/13/2017 DEL DUBOSE MD Ot E04.1 NONTOXIC SINGLE THYROID NODULE 11/13/2017 DEL DUBOSE MD Ot R22.1 LOCALIZED SWELLING, MASS AND LUMP, NECK 11/13/2017 DEL DUBOSE MD Ot R53.83 OTHER FATIGUE 11/13/2017 ROBIN HOLLINS Ot E78.2 MIXED HYPERLIPIDEMIA 11/13/2017 ROBIN HOLLINS Ot I10 ESSENTIAL (PRIMARY) HYPERTENSION 11/13/2017 ROBIN HOLLINS Ot R00.2 PALPITATIONS 11/19/2017 VIOLA AGARWAL MD Ot I10 ESSENTIAL (PRIMARY) HYPERTENSION 11/19/2017 VIOLA AGARWAL MD Ot I34.0 NONRHEUMATIC MITRAL (VALVE) INSUFFICIENC 11/19/2017 VIOLA AGARWAL MD Ot R00.2 PALPITATIONS 11/19/2017 VIOLA AGARWAL MD Ot R07.9 CHEST PAIN, UNSPECIFIED 11/19/2017 VIOLA AGARWAL MD Ot Z72.0 TOBACCO USE 12/22/2017 VIOLA AGARWAL MD Ot I49.9 CARDIAC ARRHYTHMIA, UNSPECIFIED 12/22/2017 VIOLA AGARWAL MD Ot R07.9 CHEST PAIN, UNSPECIFIED 12/22/2017 DEL DUBOSE MD P Ot E04.1 NONTOXIC SINGLE THYROID NODULE 12/22/2017 DEL DUBOSE MD Ot R22.1 LOCALIZED SWELLING, MASS AND LUMP, NECK 12/22/2017 DEL DUBOSE MD P Ot R53.83 OTHER FATIGUE 12/22/2017 ROBIN HOLLINS Ot E78.2 MIXED HYPERLIPIDEMIA 12/22/2017 ROBIN HOLLINS Ot I10 ESSENTIAL (PRIMARY) HYPERTENSION 12/22/2017 ROBIN HOLLINS Ot R00.2 PALPITATIONS 12/22/2017 VIOLA AGARWAL MD Ot I10 ESSENTIAL (PRIMARY) HYPERTENSION 12/22/2017 VIOLA AGARWAL MD Ot I34.0 NONRHEUMATIC MITRAL (VALVE) INSUFFICIENC 12/22/2017 VIOLA AGARWAL MD Ot R00.2 PALPITATIONS 12/22/2017 VIOLA AGARWAL MD Ot R07.9 CHEST PAIN, UNSPECIFIED 12/22/2017 VIOLA AGARWAL MD Ot Z72.0 TOBACCO USE 03/02/2018 VIOLA AGARWAL MD Ot I10 ESSENTIAL (PRIMARY) HYPERTENSION 03/02/2018 VIOLA AGARWAL MD Ot I34.0 NONRHEUMATIC MITRAL (VALVE) INSUFFICIENC 03/02/2018 VIOLA AGARWAL MD Ot R00.2 PALPITATIONS 03/02/2018 VIOLA AGARWAL MD Ot R07.9 CHEST PAIN, UNSPECIFIED 03/02/2018 VIOLA AGARWAL MD Ot Z72.0 TOBACCO USE 03/02/2018 VIOLA AGARWAL MD Ot I10 ESSENTIAL (PRIMARY) HYPERTENSION 03/02/2018 VIOLA AGARWAL MD Ot I34.0 NONRHEUMATIC MITRAL (VALVE) INSUFFICIENC 03/02/2018 VIOLA AGARWAL MD Ot R00.2 PALPITATIONS 03/02/2018 VIOLA AGARWAL MD Ot R07.9 CHEST PAIN, UNSPECIFIED 03/02/2018 VIOLA AGARWAL MD Ot Z72.0 TOBACCO USE 04/07/2018 EUFEMIA RAMOS DO D Ot K76.0 FATTY (CHANGE OF) LIVER, NOT ELSEWHERE C 04/22/2018 Ot Z01.818 ENCOUNTER FOR OTHER PREPROCEDURAL EXAMIN 04/28/2018 VIOLA AGARWAL MD Ot I49.9 CARDIAC ARRHYTHMIA, UNSPECIFIED 04/28/2018 VIOLA AGARWAL MD Ot R07.9 CHEST PAIN, UNSPECIFIED 04/28/2018 DEL DUBOSE MD Ot E04.1 NONTOXIC SINGLE THYROID NODULE 04/28/2018 DEL DUBOSE MD Ot R22.1 LOCALIZED SWELLING, MASS AND LUMP, NECK 04/28/2018 DEL DUBOSE MD Ot R53.83 OTHER FATIGUE 04/28/2018 ROBIN HOLLINS Ot E78.2 MIXED HYPERLIPIDEMIA 04/28/2018 ROBIN HOLLINS Ot I10 ESSENTIAL (PRIMARY) HYPERTENSION 04/28/2018 ROBIN HOLLINS Ot R00.2 PALPITATIONS 04/28/2018 VIOLA AGARWAL MD, Ot I10 ESSENTIAL (PRIMARY) HYPERTENSION 04/28/2018 VIOLA AGARWAL MD Ot I34.0 NONRHEUMATIC MITRAL (VALVE) INSUFFICIENC 04/28/2018 VIOLA AGARWAL MD Ot R00.2 PALPITATIONS 04/28/2018 VIOLA AGARWAL MD Ot R07.9 CHEST PAIN, UNSPECIFIED 04/28/2018 VIOLA AGARWAL MD Ot Z72.0 TOBACCO USE 04/28/2018 EUFEMIA RAMOS DO Ot K76.0 FATTY (CHANGE OF) LIVER, NOT ELSEWHERE C 04/28/2018 Ot R10.13 EPIGASTRIC PAIN 04/28/2018 VIOLA AGARWAL MD Ot I49.9 CARDIAC ARRHYTHMIA, UNSPECIFIED 04/28/2018 VIOLA AGARWAL MD Ot R07.9 CHEST PAIN, UNSPECIFIED 04/28/2018 EUFEMIA RAMOS DO Ot F17.210 NICOTINE DEPENDENCE, CIGARETTES, UNCOMPL 04/28/2018 EUFEMIA RAMOS DO Ot G47.33 OBSTRUCTIVE SLEEP APNEA (ADULT) (PEDIATR 04/28/2018 EUFEMIA RAMOS DO Ot I10 ESSENTIAL (PRIMARY) HYPERTENSION 04/28/2018 EUFEMIA RAMOS DO Ot J44.9 CHRONIC OBSTRUCTIVE PULMONARY DISEASE, U 04/28/2018 EUFEMIA RAMOS DO Ot K21.9 GASTRO-ESOPHAGEAL REFLUX DISEASE WITHOUT 04/28/2018 EUFEMIA RAMOS DO Ot K29.70 GASTRITIS, UNSPECIFIED, WITHOUT BLEEDING 04/28/2018 EUFEMIA RAMOS DO Ot K31.89 OTHER DISEASES OF STOMACH AND DUODENUM 04/28/2018 EUFEMIA RAMOS DO Ot K44.9 DIAPHRAGMATIC HERNIA WITHOUT OBSTRUCTION 04/30/2018 EUFEMIA RAMOS DO Ot F17.210 NICOTINE DEPENDENCE, CIGARETTES, UNCOMPL 04/30/2018 EUFEMIA RAMOS DO Ot G47.33 OBSTRUCTIVE SLEEP APNEA (ADULT) (PEDIATR 04/30/2018 EUFEMIA RAMOS DO Ot I10 ESSENTIAL (PRIMARY) HYPERTENSION 04/30/2018 RAMOS GLEN PLASCENCIATT D Ot J44.9 CHRONIC OBSTRUCTIVE PULMONARY DISEASE, U 04/30/2018 RAMOSGLEN KENNEY DOTT D Ot K21.9 GASTRO-ESOPHAGEAL REFLUX DISEASE WITHOUT 04/30/2018 RAMOS DO, EUFEMIA D Ot K29.70 GASTRITIS, UNSPECIFIED, WITHOUT BLEEDING 04/30/2018 RAMOS DO EUFEMIA D Ot K31.89 OTHER DISEASES OF STOMACH AND DUODENUM 04/30/2018 GLEN RAMOS DOTT D Ot K44.9 DIAPHRAGMATIC HERNIA WITHOUT OBSTRUCTION 05/05/2018 RAMOS DO EUFEMIA D Ot F17.210 NICOTINE DEPENDENCE, CIGARETTES, UNCOMPL 05/05/2018 RAMOS DO EUFEMIA D Ot G47.33 OBSTRUCTIVE SLEEP APNEA (ADULT) (PEDIATR 05/05/2018 EUFEMIA RAMOS DO Ot I10 ESSENTIAL (PRIMARY) HYPERTENSION 05/05/2018 EUFEMIA RAMOS DO D Ot J44.9 CHRONIC OBSTRUCTIVE PULMONARY DISEASE, U 05/05/2018 EUFEMIA RAMOS DO D Ot K21.9 GASTRO-ESOPHAGEAL REFLUX DISEASE WITHOUT 05/05/2018 GLEN RAMOS DOTT D Ot K29.70 GASTRITIS, UNSPECIFIED, WITHOUT BLEEDING 05/05/2018 GLEN RAMOS DOTT D Ot K31.89 OTHER DISEASES OF STOMACH AND DUODENUM 05/05/2018 GLEN RAMOS DOTT D Ot K44.9 DIAPHRAGMATIC HERNIA WITHOUT OBSTRUCTION 05/26/2018 MELANIE ESCOBAR APRN Ot Z12.31 ENCNTR SCREEN MAMMOGRAM FOR MALIGNANT NE 06/17/2018 MELANIE ESCOBAR APRN Ot Z12.31 ENCNTR SCREEN MAMMOGRAM FOR MALIGNANT NE 06/29/2018 EUFEMIA RAMOS DO Ot K76.0 FATTY (CHANGE OF) LIVER, NOT ELSEWHERE C 06/29/2018 Ot R10.13 EPIGASTRIC PAIN 07/02/2018 SAMEER HLUL APRN Ot G47.33 OBSTRUCTIVE SLEEP APNEA (ADULT) (PEDIATR 07/02/2018 SAMEER HULL APRN Ot K21.0 GASTRO-ESOPHAGEAL REFLUX DISEASE WITH ES 07/02/2018 SAMEER HULL APRN Ot R00.2 PALPITATIONS 07/02/2018 SAMEER HULL APRN Ot R06.09 OTHER FORMS OF DYSPNEA 07/02/2018 SAMEER HULL APPLE SOLUTIONS CONSULTANT Ot Z72.0 TOBACCO USE 07/07/2018 KURTIS SAMEER E APPLE SOLUTIONS CONSULTANT Ot G47.33 OBSTRUCTIVE SLEEP APNEA (ADULT) (PEDIATR 07/07/2018 TONY HULLINE E APPLE SOLUTIONS CONSULTANT Ot K20.9 ESOPHAGITIS, UNSPECIFIED 07/07/2018 TONY HULLINE E APPLE SOLUTIONS CONSULTANT Ot K21.9 GASTRO-ESOPHAGEAL REFLUX DISEASE WITHOUT 07/07/2018 KURTISTONY BURROUGHSINE E APPLE SOLUTIONS CONSULTANT Ot R00.2 PALPITATIONS 07/07/2018 TONY HULLINE Jj APPLE SOLUTIONS CONSULTANT Ot R06.09 OTHER FORMS OF DYSPNEA 07/07/2018 KURTISTONY BURROUGHSINE Jj APPLE SOLUTIONS CONSULTANT Ot Z72.0 TOBACCO USE 07/28/2018 KURTISSAMEER BURROUGHS APPLE SOLUTIONS CONSULTANT Ot K21.9 GASTRO-ESOPHAGEAL REFLUX DISEASE WITHOUT 07/28/2018 KURTISTONY BURROUGHSINE E APPLE SOLUTIONS CONSULTANT Ot R00.2 PALPITATIONS 07/28/2018 SAMEER HULL APPLE SOLUTIONS CONSULTANT Ot R06.09 OTHER FORMS OF DYSPNEA 07/28/2018 KURTISSAMEER BURROUGHS APPLE SOLUTIONS CONSULTANT Ot R09.02 HYPOXEMIA 07/28/2018 TONY HULLINE Jj APPLE SOLUTIONS CONSULTANT Ot R94.2 ABNORMAL RESULTS OF PULMONARY FUNCTION S 07/28/2018 SAMEER HULL APPLE SOLUTIONS CONSULTANT Ot Z72.0 TOBACCO USE 08/05/2018 EUFEMIA RAMOS DO Ot K76.0 FATTY (CHANGE OF) LIVER, NOT ELSEWHERE C 08/05/2018 Ot R10.13 EPIGASTRIC PAIN 08/05/2018 SAMEER HULL APPLE SOLUTIONS CONSULTANT Ot K21.9 GASTRO-ESOPHAGEAL REFLUX DISEASE WITHOUT 08/05/2018 TONY HULLINE Jj APPLE SOLUTIONS CONSULTANT Ot R00.2 PALPITATIONS 08/05/2018 TONY HULLINE Jj APPLE SOLUTIONS CONSULTANT Ot R06.09 OTHER FORMS OF DYSPNEA 08/05/2018 KURTISTONY BURROUGHSINE Jj APPLE SOLUTIONS CONSULTANT Ot R09.02 HYPOXEMIA 08/05/2018 SAMEER HULL APPLE SOLUTIONS CONSULTANT Ot R94.2 ABNORMAL RESULTS OF PULMONARY FUNCTION S 08/05/2018 SAMEER HULL APPLE SOLUTIONS CONSULTANT Ot Z72.0 TOBACCO USE 08/06/2018 REX BERMAN DO Ot Z01.818 ENCOUNTER FOR OTHER PREPROCEDURAL EXAMIN 08/07/2018 ANY MEJIA, VIOLA Argueta Ot I49.9 CARDIAC ARRHYTHMIA, UNSPECIFIED 08/07/2018 VIOLA AGARWAL MD Ot R07.9 CHEST PAIN, UNSPECIFIED 08/07/2018 DEL DUBOSE MD Ot E04.1 NONTOXIC SINGLE THYROID NODULE 08/07/2018 DEL DUBOSE MD Ot R22.1 LOCALIZED SWELLING, MASS AND LUMP, NECK 08/07/2018 DEL DUBOSE MD Ot R53.83 OTHER FATIGUE 08/07/2018 ROBIN HOLLINS Ot E78.2 MIXED HYPERLIPIDEMIA 08/07/2018 ROBIN HOLLINS Ot I10 ESSENTIAL (PRIMARY) HYPERTENSION 08/07/2018 ROBIN HOLLINS Ot R00.2 PALPITATIONS 08/07/2018 VIOLA AGARWAL MD, Ot I10 ESSENTIAL (PRIMARY) HYPERTENSION 08/07/2018 VIOLA AGARWAL MD Ot I34.0 NONRHEUMATIC MITRAL (VALVE) INSUFFICIENC 08/07/2018 VIOLA AGARWAL MD Ot R00.2 PALPITATIONS 08/07/2018 VIOLA AGARWAL MD Ot R07.9 CHEST PAIN, UNSPECIFIED 08/07/2018 VIOLA AGARWAL MD Ot Z72.0 TOBACCO USE 08/07/2018 EUFEMIA RAMOS DO D Ot K76.0 FATTY (CHANGE OF) LIVER, NOT ELSEWHERE C 08/07/2018 Ot R10.13 EPIGASTRIC PAIN 08/07/2018 MELANIE ESCOBAR APRN Ot Z12.31 ENCNTR SCREEN MAMMOGRAM FOR MALIGNANT NE 08/07/2018 SAMEER HULL APPLE SOLUTIONS CONSULTANT Ot G47.33 OBSTRUCTIVE SLEEP APNEA (ADULT) (PEDIATR 08/07/2018 SAMEER HULL APPLE SOLUTIONS CONSULTANT Ot K20.9 ESOPHAGITIS, UNSPECIFIED 08/07/2018 SAMEER HULL APPLE SOLUTIONS CONSULTANT Ot K21.9 GASTRO-ESOPHAGEAL REFLUX DISEASE WITHOUT 08/07/2018 SAMEER HULL APPLE SOLUTIONS CONSULTANT Ot R00.2 PALPITATIONS 08/07/2018 SAMEER HULL APRN Ot R06.09 OTHER FORMS OF DYSPNEA 08/07/2018 SAMEER HULL APPLE SOLUTIONS CONSULTANT Ot Z72.0 TOBACCO USE 08/07/2018 SAMEER HULL APPLE SOLUTIONS CONSULTANT Ot G47.33 OBSTRUCTIVE SLEEP APNEA (ADULT) (PEDIATR 08/07/2018 SAMEER HULL APPLE SOLUTIONS CONSULTANT Ot K21.0 GASTRO-ESOPHAGEAL REFLUX DISEASE WITH ES 08/07/2018 KURTIS, SAMEER Gardner APPLE SOLUTIONS CONSULTANT Ot R00.2 PALPITATIONS 08/07/2018 KURTISSAMEER BURROUGHS APPLE SOLUTIONS CONSULTANT Ot R06.09 OTHER FORMS OF DYSPNEA 08/07/2018 KURTIS SAMEER Jj APPLE SOLUTIONS CONSULTANT Ot Z72.0 TOBACCO USE 08/07/2018 KURTISTONY BURROUGHSINE Jj APPLE SOLUTIONS CONSULTANT Ot K21.9 GASTRO-ESOPHAGEAL REFLUX DISEASE WITHOUT 08/07/2018 KURTIS SAMEER Gardner APPLE SOLUTIONS CONSULTANT Ot R00.2 PALPITATIONS 08/07/2018 KURTIS, SAMEER E APPLE SOLUTIONS CONSULTANT Ot R06.09 OTHER FORMS OF DYSPNEA 08/07/2018 KURTIS, SAMEER Gardner APPLE SOLUTIONS CONSULTANT Ot R09.02 HYPOXEMIA 08/07/2018 KURTISSAMEER APPLE SOLUTIONS CONSULTANT Ot R94.2 ABNORMAL RESULTS OF PULMONARY FUNCTION S 08/07/2018 SAMEER HULL APPLE SOLUTIONS CONSULTANT Ot Z72.0 TOBACCO USE 08/07/2018 VIOLA AGARWAL MD Ot I49.9 CARDIAC ARRHYTHMIA, UNSPECIFIED 08/07/2018 VIOLA AGARWAL MD Ot R07.9 CHEST PAIN, UNSPECIFIED 08/07/2018 DEL DUBOSE MD Ot E04.1 NONTOXIC SINGLE THYROID NODULE 08/07/2018 DEL DUBOSE MD Ot R22.1 LOCALIZED SWELLING, MASS AND LUMP, NECK 08/07/2018 DEL DUBOSE MD Ot R53.83 OTHER FATIGUE 08/07/2018 ROBIN HOLLINS Ot E78.2 MIXED HYPERLIPIDEMIA 08/07/2018 ROBIN HOLLINS Ot I10 ESSENTIAL (PRIMARY) HYPERTENSION 08/07/2018 ROBIN HOLLINS Ot R00.2 PALPITATIONS 08/07/2018 VIOLA AGARWAL MD, Ot I10 ESSENTIAL (PRIMARY) HYPERTENSION 08/07/2018 VIOLA AGARWAL MD Ot I34.0 NONRHEUMATIC MITRAL (VALVE) INSUFFICIENC 08/07/2018 VIOLA AGARWAL MD Ot R00.2 PALPITATIONS 08/07/2018 VIOLA AGARWAL MD Ot R07.9 CHEST PAIN, UNSPECIFIED 08/07/2018 VIOLA AGARWAL MD Ot Z72.0 TOBACCO USE 08/07/2018 EUFEMIA RAMOS DO Ot K76.0 FATTY (CHANGE OF) LIVER, NOT ELSEWHERE C 08/07/2018 Ot R10.13 EPIGASTRIC PAIN 08/07/2018 MELANIE ESCOBAR APRN Ot Z12.31 ENCNTR SCREEN MAMMOGRAM FOR MALIGNANT NE 08/07/2018 TONY HULLINE Jj APPLE SOLUTIONS CONSULTANT Ot G47.33 OBSTRUCTIVE SLEEP APNEA (ADULT) (PEDIATR 08/07/2018 KURTISTONY BURROUGHSINE E APPLE SOLUTIONS CONSULTANT Ot K20.9 ESOPHAGITIS, UNSPECIFIED 08/07/2018 KURTISTONY BURROUGHSINE E APPLE SOLUTIONS CONSULTANT Ot K21.9 GASTRO-ESOPHAGEAL REFLUX DISEASE WITHOUT 08/07/2018 KURTIS, SAMEER E APPLE SOLUTIONS CONSULTANT Ot R00.2 PALPITATIONS 08/07/2018 KURTISTONY BURROUGHSINE E APPLE SOLUTIONS CONSULTANT Ot R06.09 OTHER FORMS OF DYSPNEA 08/07/2018 KURTISTONYSAMEER E APPLE SOLUTIONS CONSULTANT Ot Z72.0 TOBACCO USE 08/07/2018 KURTISTONYSAMEER E APPLE SOLUTIONS CONSULTANT Ot G47.33 OBSTRUCTIVE SLEEP APNEA (ADULT) (PEDIATR 08/07/2018 KURTISTONY BURROUGHSINE E APPLE SOLUTIONS CONSULTANT Ot K21.0 GASTRO-ESOPHAGEAL REFLUX DISEASE WITH ES 08/07/2018 KURTISTONYSAMEER E APPLE SOLUTIONS CONSULTANT Ot R00.2 PALPITATIONS 08/07/2018 KURTIS, SAMEER E APPLE SOLUTIONS CONSULTANT Ot R06.09 OTHER FORMS OF DYSPNEA 08/07/2018 TONY HULLINE E APPLE SOLUTIONS CONSULTANT Ot Z72.0 TOBACCO USE 08/07/2018 TONY HULLINE E APPLE SOLUTIONS CONSULTANT Ot K21.9 GASTRO-ESOPHAGEAL REFLUX DISEASE WITHOUT 08/07/2018 TONY HULLINE E APPLE SOLUTIONS CONSULTANT Ot R00.2 PALPITATIONS 08/07/2018 TONY HULLINE E APPLE SOLUTIONS CONSULTANT Ot R06.09 OTHER FORMS OF DYSPNEA 08/07/2018 TONY HULLINE E APPLE SOLUTIONS CONSULTANT Ot R09.02 HYPOXEMIA 08/07/2018 TONY HULLINE Jj APPLE SOLUTIONS CONSULTANT Ot R94.2 ABNORMAL RESULTS OF PULMONARY FUNCTION S 08/07/2018 TONY HULLINE Jj APPLE SOLUTIONS CONSULTANT Ot Z72.0 TOBACCO USE 08/07/2018 REX BERMAN DO Ot Z01.818 ENCOUNTER FOR OTHER PREPROCEDURAL EXAMIN Procedures Code [place] [address] ROUTINE VENIPUNCTURE 11/12/2012 17147 LIPID PANEL 11/12/2012 81755 VITAMIN D 25-HYDROXY (D2,D3 , TOTAL) 11/12/2012 82403 ROUTINE VENIPUNCTURE 12/10/2012 10709 CMP 12/10/20122751610 GFR CALC (RESULT ONLY) 12/10/2012 64403 CBC 12/10/2012 07132 TSH 12/10/2012 69500 ROUTINE VENIPUNCTURE 08/30/2013 88961 CBC 08/30/20130111518 GFR CALC (RESULT ONLY) 08/30/2013 44978 CMP 08/30/2013 29280 A1C (IN-HOUSE) 09/29/2013 Results Test Result Range Automated blood complete blood count (hemogram) panel - 06/14/16 10:34 Blood leukocytes automated count (number/volume) 7.8 10*3/uL 4.3-11.0 Blood erythrocytes automated count (number/volume) 4.53 10*6/uL 4.35-5.85 Venous blood hemoglobin measurement (mass/volume) 14.6 g/dL 11.5-16.0 Blood hematocrit (volume fraction) 43 % 35-52 Automated erythrocyte mean corpuscular volume 94 [foz_us] 80-99 Automated erythrocyte mean corpuscular hemoglobin (mass per erythrocyte) 32 pg 25-34 Automated erythrocyte mean corpuscular hemoglobin concentration measurement ( mass/volume) 34 g/dL 32-36 Automated erythrocyte distribution width ratio 12.6 % 10.0-14.5 Automated blood platelet count (count/volume) 235 10*3/uL 130-400 Automated blood platelet mean volume measurement 9.2 [foz_us] 7.4-10.4 [id number] - 06/14/16 10:34 Serum or plasma urea nitrogen measurement (mass/volume) 9 mg/dL 7-18 Serum or plasma creatinine measurement (mass/volume) 0.80 mg/dL 0.60-1.30 Serum or plasma urea nitrogen/creatinine mass ratio 11 NRG Serum or plasma creatinine measurement with calculation of estimated glomerular filtration rate > NRG THYROID STIMULATING HORMONE - 06/14/16 10:34 THYROID STIMULATING HORMONE 3.19 u[iU]/mL 0.35-4.94 Thyroxine (T4) measurement - 06/14/16 10:34 T4 (thyroxine) 6.2 % 5.5-12.0 Comprehensive metabolic panel - 08/12/16 07:24 Serum or plasma sodium measurement (moles/volume) 140 mmol/L 135-145 Serum or plasma potassium measurement (moles/volume) 4.2 mmol/L 3.6-5.0 Serum or plasma chloride measurement (moles/volume) 104 mmol/L 98-107 Carbon dioxide 26 mmol/L 21-32 Serum or plasma anion gap determination (moles/volume) 10 mmol/L 5-14 Serum or plasma urea nitrogen measurement (mass/volume) 8 mg/dL 7-18 Serum or plasma creatinine measurement (mass/volume) 0.80 mg/dL 0.60-1.30 Serum or plasma urea nitrogen/creatinine mass ratio 10 NRG Serum or plasma creatinine measurement with calculation of estimated glomerular filtration rate > NRG Serum or plasma glucose measurement (mass/volume) 112 mg/dL 70-105 Serum or plasma calcium measurement (mass/volume) 9.2 mg/dL 8.5-10.1 Serum or plasma total bilirubin measurement (mass/volume) 0.5 mg/dL 0.1-1.0 Serum or plasma alkaline phosphatase measurement (enzymatic activity/volume) 90 U/L 40-136 Serum or plasma aspartate aminotransferase measurement (enzymatic activity/ volume) 27 U/L 5-34 Serum or plasma alanine aminotransferase measurement (enzymatic activity/volume ) 26 U/L 0-55 Serum or plasma protein measurement (mass/volume) 7.4 g/dL 6.4-8.2 Serum or plasma albumin measurement (mass/volume) 4.0 g/dL 3.2-4.5 Lipid 1996 panel - 08/12/16 07:24 Serum or plasma triglyceride measurement (mass/volume) 194 mg/dL <150 Serum or plasma cholesterol measurement (mass/volume) 186 mg/dL < 200 Serum or plasma cholesterol in HDL measurement (mass/volume) 36 mg/ dL 40-60 Cholesterol in LDL [mass/volume] in serum or plasma by direct assay 118 mg/dL 1-129 Serum or plasma cholesterol in VLDL measurement (mass/volume) 39 mg/ dL 5-40 Complete blood count (CBC) with automated white blood cell (WBC) differential - 09/04/16 11:30 Blood leukocytes automated count (number/volume) 7.5 10*3/uL 4.3-11.0 Blood erythrocytes automated count (number/volume) 4.54 10*6/uL 4.35-5.85 Venous blood hemoglobin measurement (mass/volume) 14.5 g/dL 11.5-16.0 Blood hematocrit (volume fraction) 42 % 35-52 Automated erythrocyte mean corpuscular volume 93 [foz_us] 80-99 Automated erythrocyte mean corpuscular hemoglobin (mass per erythrocyte) 32 pg 25-34 Automated erythrocyte mean corpuscular hemoglobin concentration measurement ( mass/volume) 34 g/dL 32-36 Automated erythrocyte distribution width ratio 12.2 % 10.0-14.5 Automated blood platelet count (count/volume) 248 10*3/uL 130-400 Automated blood platelet mean volume measurement 9.1 [foz_us] 7.4-10.4 Automated blood neutrophils/100 leukocytes 56 % 42-75 Automated blood lymphocytes/100 leukocytes 33 % 12-44 Blood monocytes/100 leukocytes 9 % 0-12 Automated blood eosinophils/100 leukocytes 2 % 0-10 Automated blood basophils/100 leukocytes 1 % 0-10 Blood neutrophils automated count (number/volume) 4.2 10*3 1.8-7.8 Blood lymphocytes automated count (number/volume) 2.5 10*3 1.0-4.0 Blood monocytes automated count (number/volume) 0.7 10*3 0.0-1.0 Automated eosinophil count 0.2 10*3/uL 0.0-0.3 Automated blood basophil count (count/volume) 0.0 10*3/uL 0.0-0.1 Whole blood basic metabolic panel - 09/04/16 11:30 Serum or plasma sodium measurement (moles/volume) 136 mmol/L 135-145 Serum or plasma potassium measurement (moles/volume) 4.0 mmol/L 3.6-5.0 Serum or plasma chloride measurement (moles/volume) 104 mmol/L 98-107 Carbon dioxide 21 mmol/L 21-32 Serum or plasma anion gap determination (moles/volume) 11 mmol/L 5-14 Serum or plasma urea nitrogen measurement (mass/volume) 8 mg/dL 7-18 Serum or plasma creatinine measurement (mass/volume) 0.78 mg/dL 0.60-1.30 Serum or plasma urea nitrogen/creatinine mass ratio 10 NRG Serum or plasma creatinine measurement with calculation of estimated glomerular filtration rate > NRG Serum or plasma glucose measurement (mass/volume) 96 mg/dL 70-105 Serum or plasma calcium measurement (mass/volume) 9.0 mg/dL 8.5-10.1 Methicillin resistant Staphylococcus aureus (MRSA) screening culture - 11:30 Methicillin resistant Staphylococcus aureus (MRSA) screening culture NEG NRG Comp. Metabolic Panel (14) - 04/14/17 10:21 Glucose, Serum 124 mg/dL 65-99 BUN 10 mg/dL 6-24 Creatinine, Serum 0.82 mg/dL 0.57-1.00 eGFR If NonAfricn Am 82 mL/min/1.73 >59 eGFR If Africn Am 94 mL/min/1.73 >59 BUN/Creatinine Ratio 12 9-23 Sodium, Serum 139 mmol/L 134-144 Potassium, Serum 4.5 mmol/L 3.5-5.2 Chloride, Serum 99 mmol/L 96-106 Carbon Dioxide, Total 24 mmol/L 18-29 Calcium, Serum 9.0 mg/dL 8.7-10.2 Protein, Total, Serum 7.1 g/dL 6.0-8.5 Albumin, Serum 3.9 g/dL 3.5-5.5 Globulin, Total 3.2 g/dL 1.5-4.5 A/G Ratio 1.2 1.2-2.2 Bilirubin, Total 0.2 mg/dL 0.0-1.2 Alkaline Phosphatase, S 105 IU/L 39-117 AST (SGOT) 25 IU/L 0-40 ALT (SGPT) 27 IU/L 0-32 Lipid Panel - 04/14/17 10:21 Cholesterol, Total 179 mg/dL 100-199 Triglycerides 185 mg/dL 0-149 HDL Cholesterol 40 mg/dL >39 VLDL Cholesterol Omid 37 mg/dL 5-40 LDL Cholesterol Calc 102 mg/dL 0-99 PDM - 09 PANEL (PROFILE 1) - 01/08/18 11:23 Prescribed Drug 1 Tramadol NRG Creatinine 49.1 mg/dL > or=20.0 pH 7.78 4.5 - 9.0 Oxidant NEGATIVE mcg/mL <200 Amphetamines NEGATIVE ng/mL <500 medMATCH Amphetamines CONSISTENT NRG Benzodiazepines POSITIVE ng/mL <100 Marijuana Metabolite NEGATIVE ng/mL <20 medMATCH Marijuana Metab CONSISTENT NRG Cocaine Metabolite NEGATIVE ng/mL <150 medMATCH Cocaine Metab CONSISTENT NRG Opiates POSITIVE ng/mL <100 Oxycodone NEGATIVE ng/mL <100 medMATCH Oxycodone CONSISTENT NRG COMMENT NRG Alphahydroxyalprazolam NEGATIVE ng/mL <25 medMATCH aOH alprazolam CONSISTENT NRG Alphahydroxymidazolam NEGATIVE ng/mL <50 medMATCH aOH midazolam CONSISTENT NRG Alphahydroxytriazolam NEGATIVE ng/mL <50 medMATCH aOH triazolam CONSISTENT NRG Aminoclonazepam NEGATIVE ng/mL <25 medMATCH Aminoclonazepam CONSISTENT NRG Hydroxyethylflurazepam NEGATIVE ng/mL <50 medMATCH OH,Et flurazepam CONSISTENT NRG Lorazepam NEGATIVE ng/mL <50 medMATCH Lorazepam CONSISTENT NRG Nordiazepam 217 ng/mL <50 medMATCH Nordiazepam CONSISTENT NRG Oxazepam 985 ng/mL <50 medMATCH Oxazepam CONSISTENT NRG Temazepam 820 ng/mL <50 medMATCH Temazepam CONSISTENT NRG Codeine NEGATIVE ng/mL <50 medMATCH Codeine CONSISTENT NRG Hydrocodone 505 ng/mL <50 medMATCH Hydrocodone INCONSISTENT NRG Hydromorphone NEGATIVE ng/mL <50 medMATCH Hydromorphone CONSISTENT NRG Morphine NEGATIVE ng/mL <50 medMATCH Morphine CONSISTENT NRG Norhydrocodone 1615 ng/mL <50 medMATCH Norhydrocodone INCONSISTENT NRG Prescribed Drug 2 Tramadol NRG Prescribed Drug 3 Diazepam NRG Prescribed Drug 4 Gabapentin NRG Barbiturates NEGATIVE ng/mL <300 medMATCH Barbiturates CONSISTENT NRG Methadone Metabolite NEGATIVE ng/mL <100 medMATCH Methadone Metab CONSISTENT NRG Phencyclidine NEGATIVE ng/mL <25 medMATCH Phencyclidine CONSISTENT NRG TSH - 05/19/18 09:14 TSH 3.75 mIU/L NRG Encounters ACCT No. Visit Date/Time Discharge Status Pt. Type Provider Facility Loc./Unit Complaint [id number] 06/28/2014 10:24:00 06/28/2014 23:59:59 KIM Outpatient JOHANNY KINNEY MD [id number] 03/15/2014 10:06:00 03/15/2014 23:59:59 CLS Outpatient JOHANNY KINNEY MD [id number] 09/29/2013 08:44:00 09/29/2013 23:59:59 CLS Outpatient JOHANNY KINNEY MD [id number] 08/30/2013 09:12:00 08/30/2013 23:59:59 CLS Outpatient JOHANNY KINNEY MD [id number] 01/19/2013 10:19:00 01/19/2013 23:59:59 CLS Outpatient JOHANNY KINNEY MD [id number] 12/10/2012 09:19:00 12/10/2012 23:59:59 CLS Outpatient JOHANNY KINNEY MD [id number] 11/12/2012 08:49:00 11/12/2012 23:59:59 CLS Outpatient JOHANNY KINNEY MD [id number] 10/27/2012 08:53:00 10/27/2012 23:59:59 CLS Outpatient [id number] 08/06/2018 05:32:00 08/06/2018 14:49:00 DIS Outpatient REX BERMAN DO [facility] PREOP EBUS [id number] 08/03/2018 10:30:00 08/03/2018 23:59:59 CLS Preadmit SAMEER HULL APPLE SOLUTIONS CONSULTANT [facility] RAD LYMPH NODES [id number] 07/27/2018 09:06:00 07/27/2018 23:59:59 CLS Outpatient SAMEER HULL APPLE SOLUTIONS CONSULTANT [facility] RAD DECREASED DIFFUSION CAPACITY OF LUNG [id number] 07/06/2018 12:18:00 07/06/2018 23:59:59 CLS Outpatient SAMEER HULL APPLE SOLUTIONS CONSULTANT [facility] RT DYSPNEA ON EXERTION [id number] 06/30/2018 08:14:00 06/30/2018 23:59:59 CLS Outpatient SAMEER HULL APPLE SOLUTIONS CONSULTANT [facility] RT R06.09,K21.0 [id number] 05/25/2018 09:10:00 05/25/2018 23:59:59 CLS Outpatient MELANIE ESCOBAR APPLE SOLUTIONS CONSULTANT [facility] RAD SCREENING [id number] 04/28/2018 10:21:00 04/28/2018 12:35:00 DIS Outpatient EUFEMIA RAMOS DO [facility] ENDO EPIGASTRIC ABD PAIN [id number] 04/06/2018 07:16:00 04/06/2018 23:59:59 CLS Outpatient EUFEMIA RAMOS DO [facility] RAD UPPER GASTRIC PAIN [id number] 11/14/2017 11:26:00 11/14/2017 23:59:59 CLS Outpatient VIOLA AGARWAL MD [facility] CARD R07.89 CHEST PAIN SYNDROME [id number] 05/14/2017 19:20:00 05/15/2017 05:27:00 DIS Outpatient ABIEL SMITH MANIPULATOR OPERATOR [facility] SLEEP OBSTRUCTIVE SLEEP APNEA [id number] 04/11/2017 10:00:00 04/11/2017 10:30:00 DIS Outpatient VIOLA AGARWAL MD [facility] SLEEP BERE,CHOKING [id number] 02/04/2017 09:01:00 02/04/2017 15:15:00 DIS Outpatient EUFEMIA RAMOS DO [facility] ENDO SCREENING/REFLUX [id number] 01/30/2017 05:38:00 01/30/2017 15:33:00 DIS Outpatient EUFEMIA RAMOS DO [facility] PREOP SCREENING/REFLUX [id number] 09/06/2016 09:50:00 09/06/2016 17:35:00 DIS Outpatient DEL DUBOSE MD [facility] SDC NECK MASS [id number] 09/04/2016 11:05:00 09/04/2016 11:45:00 DIS Outpatient DEL DUBOSE MD [facility] PREOP MIDLINE NECK MASS [id number] 08/12/2016 07:16:00 08/12/2016 23:59:59 CLS Outpatient ROBIN HOLLINS [facility] LAB HTN, PALPITATIONS,HLP [id number] 06/14/2016 10:20:00 06/14/2016 23:59:59 CLS Outpatient DEL DUBOSE MD [facility] RAD NECK MASS [id number] 05/30/2016 09:13:00 05/30/2016 11:22:00 DIS Outpatient JOHANNY KINNEY MD [facility] REHAB CERVICAL DISC DISEASE [id number] 12/29/2015 11:30:00 12/29/2015 23:59:59 CLS Preadmit VIOLA AGARWAL MD [facility] CARD CARDIAC ARRHYTHMIA, CHEST PAIN [id number] 09/29/2015 12:20:00 12/28/2015 00:01:00 DIS Outpatient VIOLA AGARWAL MD [facility] CARD CARDIAC ARRHYTHMIA, CHEST PAIN [id number] 12/27/2015 12:23:00 12/27/2015 14:50:00 DIS Emergency FARHAN WARREN [facility] ER FALL RIGHT FOOT/ANKLE PAIN [id number] 11/25/2015 08:52:00 11/25/2015 10:09:00 DIS Emergency ALECIA MEJIA, HARRY Adams [facility] ER ABNORMAL PULSE RATE,SOA [id number] 10/24/2015 11:13:00 10/24/2015 13:29:00 DIS Emergency JHONY MEJIA, TRISTAN Holland [facility] ER CHEST PAIN;SOA;HIGH BLOOD PRESSURE [id number] 04/04/2015 08:55:00 04/04/2015 12:35:00 DIS Emergency MITZI MEJIA, MARY Nguyen [facility] ER ABD/LOWER BACK PAIN UTI SYMPTOMS [id number] 08/12/2018 07:30:00 PEN Preadmit REX BERMAN DO [facility] ENDO BERE ON CPAP/PALPITATIONS/DYSPNEA ON EXCERTION/GERD [id number] 08/10/2018 08:15:00 PEN Preadmit SAMEER HULL APRN [facility] PULM DYSPNEA ON EXERTION [id number] 04/22/2018 10:00:00 Document Registration [id number] 04/10/2018 09:24:00 Document Registration [id number] 09/28/2015 14:24:00 Inpatient VIOLA AGARWAL MD [facility] CSD CHEST PAIN BIGEMINY [id number] 10/16/2012 12:48:00 Document Registration [id number] 04/17/2012 09:17:00 Document Registration [id number] 11/19/2011 08:56:00 Document Registration [id number] 09/24/2010 08:08:00 Document Registration [id number] 04/15/2017 08:06:00 Document Registration [id number] 02/25/2018 08:30:00 02/25/2018 23:59:59 [facility]REGOR[facility] [id number] 05/19/2018 08:20:00 Document Registration [id number] 01/08/2018 10:40:00 Document Registration
[2018-08-12] MEDS ORDERED: PROPOFOL INJECTION 50 ML IV ONE (07:33)
[2018-08-12] MEDS ORDERED: GLYCOPYRROLATE 0.2 MG/ML (ROBINUL) 2 ML VIAL ONE (07:53)
[2018-08-12] MEDS ORDERED: NEOSTIGMINE 1 MG/ML 5 ML SYRINGE ONE (07:54)
[2018-08-12] MEDS ORDERED: ONDANSETRON 4 MG/2 ML (SDV) Z0FRAN IVP PRN (08:30)
[2018-08-12] MEDS ORDERED: HYDROmorphone 2 MG/ML VIAL (DILAUDID) IV ONE (08:30)
--- NOTE | 2018-08-12 08:31 | Progress Note-Pre Operative ---
Pre-Operative Progress Note H&P Reviewed The H&P was reviewed, patient examined and no changes noted. Time Seen by Provider: 07:00 Date H&P Reviewed: Aug 12, 2018 Time H&P Reviewed: 07:00 Pre-Operative Diagnosis: MLA and lung infiltration REX BERMAN DO Aug 12, 2018 08:31
--- NOTE | 2018-08-12 08:36 | Pulmonary Procedures ---
Pulmonary Procedures Date of Procedure Date of Service: Aug 12, 2018 Bronch Bronchoscopy with fluoroscopy, RML washing, BAL, and transbronchial brushes for cytology and fungal. Percepta brush from levi. EBUS with bx of station 7 lymph nodes. Preop DX:mediastinal lymphadenopathy Post OP DX: same Complications: None Pt was sedated per anesthesia. Bronchoscopy was advanced through the ED tube and an anatomical undertaken down to the segmental bronchi bilaterally. No endobronchial lesions noted. fluoroscopy, RML washing, BAL, and transbronchial brushes for cytology and fungal. Percepta brush from levi. EBUS with bx of station 7 lymph nodes.bx under US guidance. Pt tolerated procedure well. No complications noted. REX BERMAN DO Aug 12, 2018 08:36
[2018-08-12 09:20] VITALS: BP 126/90
--- NOTE | 2018-08-12 09:28 | Diagnostic Imaging Report ---
PATIENT HISTORY: Post bronchoscopy. TECHNIQUE: Single frontal view of the chest. COMPARISON: CT from 07/27/2018. Chest X-ray from 09/04/2016 FINDINGS: There is airspace consolidation in the right lung base and mild airspace opacity in the left lung base. Lung volumes are mildly low. The cardiac silhouette is normal in size. There is aortic atherosclerosis. No pleural effusion or pneumothorax is seen. IMPRESSION: 1. Airspace opacities in the lung bases bilaterally, right greater than left. This may be due to atelectasis or infiltrate. Dictated by: Dictated on workstation # [id number]
[2018-08-12 09:50] VITALS: BP 135/90
[2018-08-12 10:00] VITALS: BP 135/90
--- NOTE | 2018-08-12 10:19 | Diagnostic Imaging Report ---
Indication: Fluoroscopy during bronchoscopy. Fluoroscopy was performed during bronchoscopy by Dr. Harp. 12 seconds of fluoroscopy was utilized. Impression: Fluoroscopy for bronchoscopy. Dictated by: Dictated on workstation # [id number]
--- NOTE | 2018-08-12 12:24 | Anesthesia-General Post-Op ---
General Patient Condition Mental Status/LOC: Same as Preop Cardiovascular: Satisfactory Nausea/Vomiting: Absent Respiratory: Satisfactory Pain: Controlled Complications: Absent Post Op Complications Complications None Follow Up Care/Instructions Patient Instructions None needed. Anesthesia/Patient Condition Patient Condition Patient is doing well, no complaints, stable vital signs, no apparent adverse anesthesia problems. No complications reported per nursing. ANASTASIYA CLARK CRNA Aug 12, 2018 12:23
[2018-08-12 13:26] LABS: BODY FLUID SOURCE BRONCHIAL LAVAGE
[2018-08-12 13:27] LABS: BF OTHER CELLS 82 %; BODY FLUID APPEARENCE SLT CLDY; BODY FLUID COLOR COLORLESS
[2018-08-12 13:28] LABS: LYMPHOCYTES,BODY FLUID 13 %
== END 2018-08-12 10:00 | disposition home or self-care (01) ==
LOC: ENDO 06:55
PROVIDERS: ATTEND Internal Medicine Critical Care Medicine
DX: R59.0 Localized enlarged lymph nodes (principal); J44.9 Chronic obstructive pulmonary disease, unspecified; G47.33 Obstructive sleep apnea (adult) (pediatric); I10 Essential (primary) hypertension; K21.9 Gastro-esophageal reflux disease without esophagitis; G62.9 Polyneuropathy, unspecified; F17.210 Nicotine dependence, cigarettes, uncomplicated; Z79.899 Other long term (current) drug therapy
CPT/HCPCS: 71045; 87015; 87070; 87101; 87116; 87205; 87206; 88112; 88305; 88312; 89051; 94640

== ENCOUNTER 2018-08-19 10:32 | Emergency (ER) | payer BC, OTHER ==
[~2018-08-19] VITALS: Ht 157.5 cm; Wt 77.1 kg
--- NOTE | 2018-08-19 12:35 | ED Lower Extremity ---
General Chief Complaint: Lower Extremity Stated Complaint: LEFT LEG SWELLING;SOB Nursing Triage Note: Pt reports swelling to L leg since Friday. pt reports pins and needles feeling to L leg. Pt also reports feeling SOA. Nursing Sepsis Screen: No Definite Risk Source: patient Exam Limitations: no limitations History of Present Illness Date Seen by Provider: Aug 19, 2018 Time Seen by Provider: 12:30 Initial Comments Patient is a 52-year-old female who presents to the emergency room with lower left leg swelling and pain that started 3 days ago. She reports feeling of heaviness and and the needles to the left calf area. She reports that she is also felt more short of breath for the past week she has a history of COPD and recently had a bronchoscope for enlarged lymph nodes in her lungs. She sees Dr. Harp for pulmonology and Dr. Estrada for PCP. She denies fevers, nausea, vomiting or injury to the leg. Onset: other (3 days ago) Pain/Injury Location: left other (calf swelling and pain) Method of Injury: unknown (no injury) Modifying Factors: Worse With Movement Allergies and Home Medications Allergies Coded Allergies: No Known Drug Allergies (Verified , 04/28/18) Home Medications Albuterol Sulfate 6.7 Gm Hfa.aer.ad, 2 PUFF INH Q4H PRN for SHORTNESS OF BREATH, (Reported) Atorvastatin Calcium 20 Mg Tablet, 20 MG PO DAILY, (Reported) Budesonide/Formoterol Fumarate 10.2 Gm Hfa.aer.ad, 2 PUFF IH BID, (Reported) Cyclobenzaprine HCl 10 Mg Tablet, 10 MG PO TID PRN for MUSCLE SPASMS, (Reported) Diazepam 5 Mg Tablet, 5 MG PO BID PRN for ANXIETY, (Reported) Fluticasone Propionate 9.9 Ml [employer].susp, 1 SPRAY NS DAILY, (Reported) 1 SPRAY EACH NARE DAILY Gabapentin 600 Mg Tablet, 600 MG PO BID, (Reported) Metoprolol Succinate 50 Mg Tab.er.24h, 50 MG PO DAILY, (Reported) Bosque-3S/Dha/Epa/Fish Oil 1 Each Capsule.dr, 1 EACH PO DAILY, (Reported) Pantoprazole Sodium 40 Mg Tablet.dr, 40 MG PO BID, (Reported) Sertraline HCl 50 Mg Tablet, 50 MG PO DAILY, (Reported) Patient Home Medication List Home Medication List Reviewed: Yes Review of Systems Constitutional: see HPI; No chills, No fever Respiratory: see HPI, short of breath Musculoskeletal: see HPI, muscle pain (left calf pain and swelling) All Other Systems Reviewed Negative Unless Noted: Yes Past Ertugia-Kubhwr-Wsssde Hx Past Med/Social Hx: Reviewed Nursing Past Med/Soc Hx Patient Social History Type Used: Cigarettes Recent Foreign Travel: No Contact w/Someone Who Travel: No Recent Infectious Disease Expo: No Recent Hopitalizations: No Immunizations Up To Date Tetanus Booster (TDap): Unknown Date of Influenza Vaccine: Jun 08, 2018 Seasonal Allergies Seasonal Allergies: Yes Past Medical History Appendectomy, Hysterectomy Sleep Apnea, COPD Currently Using CPAP: Yes Currently Using BIPAP: No Hypertension, Irregular Heartbeat 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 Disorders: No Female 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 0.0oz. [id number]; 32.4 BMI Method:Stated General Appearance: WD/WN, no apparent distress HEENT: PERRL/EOMI, normal ENT inspection, TMs normal, pharynx normal Cardiovascular: normal peripheral pulses, regular rate, rhythm, no edema, no gallop, no JVD, no murmur Respiratory: chest non-tender, lungs clear, normal breath sounds, no respiratory distress, no accessory muscle use Legs: left leg soft tissue tenderness (calf tenderness), left leg swelling ( left calf swelling) Neurologic/Tendon: normal sensation, normal motor functions, normal tendon functions, responds to pain, no evidence tendon injury Neurologic/Psychiatric: alert, normal mood/affect, oriented x 3 Skin: normal color, warm/dry Progress/Results/Core Measures Results/Orders Lab Results Laboratory Tests Test 08/19/18 11:35 Range/Units White Blood Count 7.4 4.3-11.0 10^3/uL Red Blood Count 4.73 4.35-5.85 10^6/uL Hemoglobin 14.8 11.5-16.0 G/DL Hematocrit 44 35-52 % Mean Corpuscular Volume 93 80-99 FL Mean Corpuscular Hemoglobin 31 25-34 PG Mean Corpuscular Hemoglobin Concent 34 32-36 G/DL Red Cell Distribution Width 12.9 10.0-14.5 % Platelet Count 231 130-400 10^3/uL Mean Platelet Volume 9.5 7.4-10.4 FL Neutrophils (%) (Auto) 57 42-75 % Lymphocytes (%) (Auto) 33 12-44 % Monocytes (%) (Auto) 8 0-12 % Eosinophils (%) (Auto) 1 0-10 % Basophils (%) (Auto) 0 0-10 % Neutrophils # (Auto) 4.3 1.8-7.8 X 10^3 Lymphocytes # (Auto) 2.4 1.0-4.0 X 10^3 Monocytes # (Auto) 0.6 0.0-1.0 X 10^3 Eosinophils # (Auto) 0.1 0.0-0.3 10^3/uL Basophils # (Auto) 0.0 0.0-0.1 10^3/uL Prothrombin Time 12.7 12.2-14.7 SEC INR Comment 1.0 0.8-1.4 Activated Partial Thromboplast Time 32 24-35 SEC D-Dimer 0.47 0.00-0.49 UG/ML Sodium Level 137 135-145 MMOL/L Potassium Level 4.3 3.6-5.0 MMOL/L Chloride Level 101 98-107 MMOL/L Carbon Dioxide Level 23 21-32 MMOL/L Anion Gap 13 5-14 MMOL/L Blood Urea Nitrogen 9 7-18 MG/DL Creatinine 0.85 0.60-1.30 MG/DL Estimat Glomerular Filtration Rate > 60 BUN/Creatinine Ratio 11 Glucose Level 97 70-105 MG/DL Calcium Level 9.6 8.5-10.1 MG/DL Corrected Calcium 9.2 8.5-10.1 MG/DL Total Bilirubin 0.6 0.1-1.0 MG/DL Aspartate Amino Transf (AST/SGOT) 29 5-34 U/L Alanine Aminotransferase (ALT/SGPT) 40 0-55 U/L Alkaline Phosphatase 108 40-136 U/L Total Protein 8.1 6.4-8.2 GM/DL Albumin 4.5 3.2-4.5 GM/DL My Orders Orders - NORMA PEREZ Comprehensive Metabolic Panel (08/19/18 12:28) Cbc With Automated Diff (08/19/18 12:28) Protime With Inr (08/19/18 12:28) Partial Thromboplastin Time (08/19/18 12:28) Fibrin Degradation Products (08/19/18 12:28) Chest Pa/Lat (2 View) (08/19/18 12:28) Us Venous Lower Ext Lt (08/19/18 12:28) Saline Lock/Iv-Start (08/19/18 12:28) Vital Signs/I&O 08/19/18 08/19/18 10:59 14:01 Temp 98.5 Pulse 86 75 Resp 18 20 B/P (MAP) 117/79 (92) 111/66 (81) Pulse Ox 99 98 O2 Delivery Room Air Room Air Blood Pressure Mean: 92 Progress Progress Note : Time: 13:40 Progress Note I have seen and evaluated the patient. I have informed her of laboratory and imaging studies. She agrees with plans for discharge. Return precautions were given. Departure Impression Primary Impression: Pain of left calf Disposition: HOME, SELF-CARE Condition: Stable/Unchanged Departure-Patient Inst. Decision time for Depature: 13:46 Referrals: JOHANNY KINNEY MD (PCP/Family) Primary Care Physician Patient Instructions: Lower Extremity Muscle Strain (DC) Add. Discharge Instructions: Continue with your home medications as previously prescribed. You may use Tylenol and ibuprofen as directed by the bottle for pain relief. Follow-up with Dr. Estrada at [facility] within 1 week for recheck. Return back to the emergency room for any worsening symptoms or concerns as needed. All discharge instructions reviewed with patient and/or family. Voiced understanding. NORMA PEREZ Aug 19, 2018 12:34
[2018-08-19 12:36] LABS: BASOPHILS % (AUTO) 0 % (0-10); EOSINOPHILS # (AUTO) 0.1 10^3/uL (0.0-0.3); EOSINOPHILS % (AUTO) 1 % (0-10); HEMATOCRIT 44 % (35-52); HEMOGLOBIN 14.8 G/DL (11.5-16.0); LYMPHOCYTES # (AUTO) 2.4 X 10^3 (1.0-4.0); LYMPHOCYTES % (AUTO) 33 % (12-44); MEAN CORPUSCULAR HEMOGLOBIN 31 PG (25-34); MEAN CORPUSCULAR HGB CONC 34 G/DL (32-36); MEAN CORPUSCULAR VOLUME 93 FL (80-99); MEAN PLATELET VOLUME 9.5 FL (7.4-10.4); MONOCYTES # (AUTO) 0.6 X 10^3 (0.0-1.0); MONOCYTES % (AUTO) 8 % (0-12); NEUTROPHILS # (AUTO) 4.3 X 10^3 (1.8-7.8); NEUTROPHILS % (AUTO) 57 % (42-75); PLATELET COUNT 231 10^3/uL (130-400); RED BLOOD COUNT 4.73 10^6/uL (4.35-5.85); RED CELL DISTRIBUTION WIDTH 12.9 % (10.0-14.5); WHITE BLOOD COUNT 7.4 10^3/uL (4.3-11.0)
[2018-08-19 12:46] LABS: FIBRIN DEGRADATION PRODUCTS 0.47 UG/ML (0.00-0.49); PROTHROMBIN TIME PATIENT 12.7 SEC (12.2-14.7)
[2018-08-19 12:51] LABS: ALANINE AMINOTRANSFERASE 40 U/L (0-55); ALBUMIN 4.5 GM/DL (3.2-4.5); ALKALINE PHOSPHATASE 108 U/L (40-136); BILIRUBIN,TOTAL 0.6 MG/DL (0.1-1.0); BUN/CREATININE RATIO 11; CALCIUM 9.6 MG/DL (8.5-10.1); CARBON DIOXIDE 23 MMOL/L (21-32); CHLORIDE 101 MMOL/L (98-107); CREATININE SERUM 0.85 MG/DL (0.60-1.30); GFR ESTIMATED > 60; GLUCOSE 97 MG/DL (70-105); POTASSIUM 4.3 MMOL/L (3.6-5.0); SODIUM 137 MMOL/L (135-145); TOTAL PROTEIN 8.1 GM/DL (6.4-8.2)
--- NOTE | 2018-08-19 13:37 | Diagnostic Imaging Report ---
PATIENT HISTORY: Shortness of air. TECHNIQUE: Single frontal view of the chest. COMPARISON: 08/12/2018. FINDINGS: Lung volumes are mildly low. There are airspace opacities in the lung bases which appear improved compared to the prior exam. There is mild central vascular congestion. No pleural effusion or pneumothorax is seen. The cardiac silhouette is stable in size. No acute osseous abnormality is seen. IMPRESSION: 1. Mild bibasilar airspace opacities, improved since the prior study. 2. Mild central vascular congestion, may be accentuated by low lung volumes. Dictated by: Dictated on workstation # [id number]
--- OUTSIDE RECORDS SUMMARY | 2018-08-19 13:58 | XMS REPORT | Continuity of Care Document ---
Author Author [facility] Address Unknown Phone Unavailable Allergies Active Description Code Type Severity Reaction Onset Reported/Identified Relationship to Patient Clinical Status Yes No Allergy Information Available [id number] Drug Allergy Unknown N/A 2012 Yes No Known Drug Allergies [id number] Drug Allergy Unknown N/A 04/28/2018 Medications There [...] MEJIA, JOHANNY 401.9 UNSPECIFIED ESSENTIAL HYPERTENSION 10/27/2012 GERGORIA MEJIA, JOHANNY 401.9 UNSPECIFIED ESSENTIAL HYPERTENSION 10/27/2012 [...] Ot I10 ESSENTIAL (PRIMARY) HYPERTENSION 10/24/2015 TRISTAN OBOKER MD Ot R07.89 OTHER CHEST PAIN 10/24/2015 TRISTAN BOOKER MD Ot Z79.899 OTHER BEAN VINER (CURRENT) DRUG THERAPY 10/26/2015 VIOLA AGARWAL MD [...] FARHAN WARREN Ot Y92.[address] IN [facility] NON-INSTITUT (PRIVATE 12/27/2015 FARHAN WARREN [...] FARHAN WARREN Ot Y92.[address] IN [facility] NON-INSTITUT (PRIVATE 12/28/2015 FARHAN WARREN [...] K Ot I10 ESSENTIAL (PRIMARY) HYPERTENSION 08/13/2016 ROBIN HOLLINS K Ot R00.2 PALPITATIONS 08/13/2016 CHINO [...] Ot I10 ESSENTIAL (PRIMARY) HYPERTENSION 04/28/2018 ROBIN HLOLINS Ot R00.2 PALPITATIONS 04/28/2018 VIOLA AGARWAL MD, [...] 06/29/2018 Ot R10.13 EPIGASTRIC PAIN 07/02/2018 SAMEER HULL APRN Ot G47.33 OBSTRUCTIVE SLEEP APNEA (ADULT) (PEDIATR 07/02/2018 SAMEER HULL APRN Ot K21.0 GASTRO-ESOPHAGEAL REFLUX DISEASE WITH ES 07/02/2018 SAMEER HULL APRN Ot R00.2 PALPITATIONS 07/02/2018 SAMEER HULL APRN Ot R06.09 OTHER FORMS OF DYSPNEA 07/02/2018 SAMEER HULL AIR QUALITY TECHNICIAN Ot Z72.0 TOBACCO USE 07/07/2018 KURTIS SAMEER E AIR QUALITY TECHNICIAN Ot G47.33 OBSTRUCTIVE SLEEP APNEA (ADULT) (PEDIATR 07/07/2018 TONY HULLINE E AIR QUALITY TECHNICIAN Ot K20.9 ESOPHAGITIS, UNSPECIFIED 07/07/2018 TONY HULLINE E AIR QUALITY TECHNICIAN Ot K21.9 GASTRO-ESOPHAGEAL REFLUX DISEASE WITHOUT 07/07/2018 KURTISTONY BURROUGHSINE E AIR QUALITY TECHNICIAN Ot R00.2 PALPITATIONS 07/07/2018 TONY HULLINE Jj AIR QUALITY TECHNICIAN Ot R06.09 OTHER FORMS OF DYSPNEA 07/07/2018 KURTISTONY BURROUGHSINE Jj AIR QUALITY TECHNICIAN Ot Z72.0 TOBACCO USE 07/28/2018 KURTISSAMEER BURROUGHS AIR QUALITY TECHNICIAN Ot K21.9 GASTRO-ESOPHAGEAL REFLUX DISEASE WITHOUT 07/28/2018 KURTISTONY BURROUGHSINE E AIR QUALITY TECHNICIAN Ot R00.2 PALPITATIONS 07/28/2018 SAMEER HULL AIR QUALITY TECHNICIAN Ot R06.09 OTHER FORMS OF DYSPNEA 07/28/2018 KURTISSAMEER BURROUGHS AIR QUALITY TECHNICIAN Ot R09.02 HYPOXEMIA 07/28/2018 TONY HULLINE Jj AIR QUALITY TECHNICIAN Ot R94.2 ABNORMAL RESULTS OF PULMONARY FUNCTION S 07/28/2018 SAMEER HULL AIR QUALITY TECHNICIAN Ot Z72.0 TOBACCO USE 08/05/2018 EUFEMIA RAMOS DO Ot K76.0 FATTY (CHANGE OF) LIVER, NOT ELSEWHERE C 08/05/2018 Ot R10.13 EPIGASTRIC PAIN 08/05/2018 SAMEER HULL AIR QUALITY TECHNICIAN Ot K21.9 GASTRO-ESOPHAGEAL REFLUX DISEASE WITHOUT 08/05/2018 TONY HULLINE Jj AIR QUALITY TECHNICIAN Ot R00.2 PALPITATIONS 08/05/2018 TONY HULLINE Jj AIR QUALITY TECHNICIAN Ot R06.09 OTHER FORMS OF DYSPNEA 08/05/2018 KURTISTONY BURROUGHSINE Jj AIR QUALITY TECHNICIAN Ot R09.02 HYPOXEMIA 08/05/2018 SAMEER HULL AIR QUALITY TECHNICIAN Ot R94.2 ABNORMAL RESULTS OF PULMONARY FUNCTION S 08/05/2018 SAMEER HULL AIR QUALITY TECHNICIAN Ot Z72.0 TOBACCO USE 08/06/2018 REX BERMAN [...] MAMMOGRAM FOR MALIGNANT NE 08/07/2018 SAMEER HULL AIR QUALITY TECHNICIAN Ot G47.33 OBSTRUCTIVE SLEEP APNEA (ADULT) (PEDIATR 08/07/2018 SAMEER HULL AIR QUALITY TECHNICIAN Ot K20.9 ESOPHAGITIS, UNSPECIFIED 08/07/2018 SAMEER HULL AIR QUALITY TECHNICIAN Ot K21.9 GASTRO-ESOPHAGEAL REFLUX DISEASE WITHOUT 08/07/2018 SAMEER HULL AIR QUALITY TECHNICIAN Ot R00.2 PALPITATIONS 08/07/2018 SAMEER HULL APRN Ot R06.09 OTHER FORMS OF DYSPNEA 08/07/2018 SAMEER HULL AIR QUALITY TECHNICIAN Ot Z72.0 TOBACCO USE 08/07/2018 SAMEER HULL AIR QUALITY TECHNICIAN Ot G47.33 OBSTRUCTIVE SLEEP APNEA (ADULT) (PEDIATR 08/07/2018 SAMEER HULL AIR QUALITY TECHNICIAN Ot K21.0 GASTRO-ESOPHAGEAL REFLUX DISEASE WITH ES 08/07/2018 KURTIS, SAMEER Gardner AIR QUALITY TECHNICIAN Ot R00.2 PALPITATIONS 08/07/2018 KURTISSAMEER BURROUGHS AIR QUALITY TECHNICIAN Ot R06.09 OTHER FORMS OF DYSPNEA 08/07/2018 KURTIS SAMEER Jj AIR QUALITY TECHNICIAN Ot Z72.0 TOBACCO USE 08/07/2018 KURTISTONY BURROUGHSINE Jj AIR QUALITY TECHNICIAN Ot K21.9 GASTRO-ESOPHAGEAL REFLUX DISEASE WITHOUT 08/07/2018 KURTIS SAMEER Gardner AIR QUALITY TECHNICIAN Ot R00.2 PALPITATIONS 08/07/2018 KURTIS, SAMEER E AIR QUALITY TECHNICIAN Ot R06.09 OTHER FORMS OF DYSPNEA 08/07/2018 KURTIS, SAMEER Gardner AIR QUALITY TECHNICIAN Ot R09.02 HYPOXEMIA 08/07/2018 KURTISSAMEER AIR QUALITY TECHNICIAN Ot R94.2 ABNORMAL RESULTS OF PULMONARY FUNCTION S 08/07/2018 SAMEER HULL AIR QUALITY TECHNICIAN Ot Z72.0 TOBACCO USE 08/07/2018 VIOLA AGARWAL [...] FOR MALIGNANT NE 08/07/2018 TONY HULLINE Jj AIR QUALITY TECHNICIAN Ot G47.33 OBSTRUCTIVE SLEEP APNEA (ADULT) (PEDIATR 08/07/2018 KURTISTONY BURROUGHSINE E AIR QUALITY TECHNICIAN Ot K20.9 ESOPHAGITIS, UNSPECIFIED 08/07/2018 KURTISTONY BURROUGHSINE E AIR QUALITY TECHNICIAN Ot K21.9 GASTRO-ESOPHAGEAL REFLUX DISEASE WITHOUT 08/07/2018 KURTIS, SAMEER E AIR QUALITY TECHNICIAN Ot R00.2 PALPITATIONS 08/07/2018 KURTISTONY BURROUGHSINE E AIR QUALITY TECHNICIAN Ot R06.09 OTHER FORMS OF DYSPNEA 08/07/2018 KURTISTONYSAMEER E AIR QUALITY TECHNICIAN Ot Z72.0 TOBACCO USE 08/07/2018 KURTISTONYSAMEER E AIR QUALITY TECHNICIAN Ot G47.33 OBSTRUCTIVE SLEEP APNEA (ADULT) (PEDIATR 08/07/2018 KURTISTONY BURROUGHSINE E AIR QUALITY TECHNICIAN Ot K21.0 GASTRO-ESOPHAGEAL REFLUX DISEASE WITH ES 08/07/2018 KURTISTONYSAMEER E AIR QUALITY TECHNICIAN Ot R00.2 PALPITATIONS 08/07/2018 KURTIS, SAMEER E AIR QUALITY TECHNICIAN Ot R06.09 OTHER FORMS OF DYSPNEA 08/07/2018 TONY HULLINE E AIR QUALITY TECHNICIAN Ot Z72.0 TOBACCO USE 08/07/2018 TONY HULLINE E AIR QUALITY TECHNICIAN Ot K21.9 GASTRO-ESOPHAGEAL REFLUX DISEASE WITHOUT 08/07/2018 TONY HULLINE E AIR QUALITY TECHNICIAN Ot R00.2 PALPITATIONS 08/07/2018 TONY HULLINE E AIR QUALITY TECHNICIAN Ot R06.09 OTHER FORMS OF DYSPNEA 08/07/2018 TONY HULLINE E AIR QUALITY TECHNICIAN Ot R09.02 HYPOXEMIA 08/07/2018 TONY HULLINE Jj AIR QUALITY TECHNICIAN Ot R94.2 ABNORMAL RESULTS OF PULMONARY FUNCTION S 08/07/2018 TONY HULLINE Jj AIR QUALITY TECHNICIAN Ot Z72.0 TOBACCO USE 08/07/2018 REX BERMAN DO Ot Z01.818 ENCOUNTER FOR OTHER PREPROCEDURAL EXAMIN Procedures Code [place] [address] ROUTINE VENIPUNCTURE 11/12/2012 49199 LIPID PANEL 11/12/2012 00604 VITAMIN D 25-HYDROXY (D2,D3 , TOTAL) 11/12/2012 35566 ROUTINE VENIPUNCTURE 12/10/2012 88586 CMP 12/10/20125936375 GFR CALC (RESULT ONLY) 12/10/2012 87092 CBC 12/10/2012 06634 TSH 12/10/2012 23408 ROUTINE VENIPUNCTURE 08/30/2013 39310 CBC 08/30/20134412581 GFR CALC (RESULT ONLY) 08/30/2013 71435 CMP 08/30/2013 25609 A1C (IN-HOUSE) 09/29/2013 Results Test Result Range [...] platelet mean volume measurement 9.2 [foz_us] 7.4-10.4 IUQ9583 - 06/14/16 10:34 Serum or plasma urea [...] - 05/19/18 09:14 TSH 3.75 mIU/L NRG Sputum Gram stain - 08/12/18 07:50 Sputum Gram stain No bacteria seen NRG Bacteria identification in bronchial specimen by aerobe culture - 08/12/18 07: 50 Bacteria identification in bronchial specimen by aerobe culture NG NRG C FUNGUS SPUTUM FLUID TISSUE - 08/12/18 07:50 QUANTITY OF GROWTH . NRG FTX;REPORTABLE RML SENT PRELIMINARY REPORT 08/14 14:05 NRG FUNGUS REPORT CURRENT REPORT:NEGATIVE NRG FUNGUS EXAM (FINAL REQUIRES 4 WEEKS) NRG C FUNGUS SPUTUM FLUID TISSUE PROGRESS NRG Sputum Gram stain - 08/12/18 07:51 Sputum Gram stain No bacteria seen NRG C FUNGUS SPUTUM FLUID TISSUE - 08/12/18 07:51 FTX;REPORTABLE RML SENT REPORT 08/14 14:05 NRG FUNGUS REPORT CURRENT REPORT:NEGATIVE NRG FUNGUS EXAM (FINAL REQUIRES 4 WEEKS) NRG C FUNGUS SPUTUM FLUID TISSUE - 08/12/18 07:51 QUANTITY OF GROWTH . NRG C FUNGUS SPUTUM FLUID TISSUE PROGRESS NRG C FUNGUS SPUTUM FLUID TISSUE - 08/12/18 07:52 FTX;REPORTABLE RML SENT PRELIMINARY REPORT 08/14 14:05 NRG FUNGUS REPORT CURRENT REPORT:NEGATIVE NRG FUNGUS EXAM FINAL REQUIRES 4 WEEKS NRG Mycobacterium species detection by organism specific culture - 08/12/18 07:53 BODY FLUID DIFFERENTIAL - 08/12/18 12:20 Specimen source identification of body fluid BR[place]IAL [place] NRG Evaluation of color of body fluid COLORLESS NRG Determination of appearance of body fluid SLT CLDY NRG Manual body fluid polymorphonuclear cells/100 leukocytes 4 % NRG Manual body fluid mononuclear cells/100 leukocytes 1 % NRG Manual body fluid lymphocytes/100 leukocytes 13 % NRG Other cells/100 leukocytes in body fluid by manual count 82 % NRG Encounters ACCT No. Visit Date/Time Discharge Status Pt. Type Provider Facility Loc./Unit Complaint [id number] 06/28/2014 10:24:00 06/28/2014 23:59:59 CLS Outpatient JOHANNY KINNEY MD [id number] 03/15/2014 10:06:00 03/15/2014 23:59:59 CLS Outpatient JOHANNY KINNEY MD [id number] 09/29/2013 08:44:00 09/29/2013 23:59:59 CLS Outpatient JOHANNY KINNEY MD [id number] 08/30/2013 09:12:00 08/30/2013 23:59:59 CLS Outpatient JOHANNY KINNEY MD [id number] 01/19/2013 10:19:00 01/19/2013 23:59:59 CLS Outpatient JOHANNY KINNEY MD [id number] 12/10/2012 09:19:00 12/10/2012 23:59:59 CLS Outpatient JOHANNY KINNEY MD [id number] 11/12/2012 08:49:00 11/12/2012 23:59:59 CLS Outpatient JOHANNY KINNEY MD [id number] 10/27/2012 08:53:00 10/27/2012 23:59:59 CLS Outpatient [id number] 08/12/2018 06:55:00 08/12/2018 10:00:00 DIS Outpatient REX BERMAN DO [facility] ENDO BERE ON CPAP/PALPITATIONS /DYSPNEA ON EXCERTION/GERD [id number] 08/10/2018 08:17:00 08/10/2018 23:59:59 CLS Outpatient SAMEER HULL AIR QUALITY TECHNICIAN [facility] PULM DYSPNEA ON EXERTION [id number] 08/06/2018 05:32:00 08/06/2018 14:49:00 DIS Outpatient REX BERMAN DO [facility] PREOP EBUS [id number] 08/03/2018 10:30:00 08/03/2018 23:59:59 CLS Preadmit SAMEER HULL APRN [facility] RAD LYMPH NODES [id number] 07/27/2018 09:06:00 07/27/2018 23:59:59 CLS Outpatient SAMEER HULL APRN [facility] RAD DECREASED DIFFUSION CAPACITY OF LUNG [id number] 07/06/2018 12:18:00 07/06/2018 23:59:59 CLS Outpatient SAMEER HULL AIR QUALITY TECHNICIAN [facility] RT DYSPNEA ON EXERTION [id number] 06/30/2018 08:14:00 06/30/2018 23:59:59 CLS Outpatient SAMEER HULL AIR QUALITY TECHNICIAN [facility] RT R06.09,K21.0 [id number] 05/25/2018 09:10:00 05/25/2018 23:59:59 CLS Outpatient MELANIE ESCOBAR AIR QUALITY TECHNICIAN [facility] RAD SCREENING [id number] 04/28/2018 10:21:00 04/28/2018 12:35:00 DIS Outpatient EUFEMIA RAMOS DO [facility] ENDO EPIGASTRIC ABD PAIN [id number] 04/06/2018 07:16:00 04/06/2018 23:59:59 CLS Outpatient EUFEMIA RAMOS DO [facility] RAD UPPER GASTRIC PAIN [id number] 11/14/2017 11:26:00 11/14/2017 23:59:59 CLS Outpatient VIOLA AGARWAL MD [facility] CARD R07.89 CHEST PAIN SYNDROME [id number] 05/14/2017 19:20:00 05/15/2017 05:27:00 DIS Outpatient ABIEL SMITH TREATING AND PUMPING SUPERVISOR [facility] SLEEP OBSTRUCTIVE SLEEP APNEA [id number] 04/11/2017 10:00:00 04/11/2017 10:30:00 DIS Outpatient VIOLA AGARWAL MD [facility] SLEEP BERE,CHOKING [id number] 02/04/2017 09:01:00 02/04/2017 15:15:00 DIS Outpatient RAMOS EUFEMIA PLASCENCIA [facility] ENDO SCREENING/REFLUX [id number] 01/30/2017 05:38:00 01/30/2017 15:33:00 DIS Outpatient EUFEMIA RAMOS DO [facility] PREOP SCREENING/REFLUX [id number] 09/06/2016 09:50:00 09/06/2016 17:35:00 DIS Outpatient DEL DUBOSE MD [facility] SDC NECK MASS [id number] 09/04/2016 11:05:00 09/04/2016 11:45:00 DIS Outpatient DEL DUBOSE MD [facility] PREOP MIDLINE NECK MASS [id number] 08/12/2016 07:16:00 08/12/2016 23:59:59 CLS Outpatient ROBIN HOLLINS [facility] LAB HTN, PALPITATIONS,HLP [id number] 06/14/2016 10:20:00 06/14/2016 23:59:59 CLS Outpatient DEL DUBOSE MD [facility] RAD NECK MASS [id number] 05/30/2016 09:13:00 05/30/2016 11:22:00 DIS Outpatient JOHANNY KINNEY MD [facility] REHAB CERVICAL DISC DISEASE [id number] 12/29/2015 11:30:00 12/29/2015 23:59:59 CLS Preadmit VIOLA AGARWAL MD [facility] CARD CARDIAC ARRHYTHMIA, CHEST PAIN [id number] 09/29/2015 12:20:00 12/28/2015 00:01:00 DIS Outpatient ANY MEJIA, VIOLA Argueta [facility] CARD CARDIAC ARRHYTHMIA, CHEST PAIN [id number] 12/27/2015 12:23:00 12/27/2015 14:50:00 DIS Emergency FARHAN WARREN [facility] ER FALL RIGHT FOOT/ANKLE PAIN [id number] 11/25/2015 08:52:00 11/25/2015 10:09:00 DIS Emergency HARRY ALSTON MD [facility] ER ABNORMAL PULSE RATE,SOA [id number] 10/24/2015 11:13:00 10/24/2015 13:29:00 DIS Emergency JHONY MEJIA, TRISTAN Holland [facility] ER CHEST PAIN;SOA;HIGH BLOOD PRESSURE [id number] 04/04/2015 08:55:00 04/04/2015 12:35:00 DIS Emergency MARY CARTAGENA MD [facility] ER ABD/LOWER BACK PAIN UTI SYMPTOMS [id number] 08/19/2018 10:33:00 ACT Emergency JHONY MEJIA, TRISTAN Holland [facility] ER LEFT LEG SWELLING;SOB [id number] 04/22/2018 10:00:00 Document Registration [id number] 04/10/2018 09:24:00 Document Registration [id number] 09/28/2015 14:24:00 Inpatient VIOLA AGARWAL MD [facility] CSD CHEST PAIN BIGEMINY [id number] 10/16/2012 12:48:00 Document Registration [id number] 04/17/2012 09:17:00 Document Registration [id number] 11/19/2011 08:56:00 Document Registration [id number] 09/24/2010 08:08:00 Document Registration [id number] 04/15/2017 08:06:00 Document Registration [id number] 02/25/2018 08:30:00 02/25/2018 23:59:59 [facility] Outpatient GREGORIA MEJIA, JOHANNY [facility] [id number] 05/19/2018 08:20:00 Document Registration [id number] 01/08/2018 10:40:00 Document Registration
[2018-08-19 14:01] VITALS: BP 111/66
--- NOTE | 2018-08-19 14:04 | Diagnostic Imaging Report ---
PROCEDURE: US left lower extremity venous. TECHNIQUE: Multiple real-time grayscale images were obtained over the left lower extremity in various projections. Additional duplex Doppler and color Doppler images were also obtained. Date: August 19, 2018. Indication: 52-year-old female, left lower extremity pain and swelling. Comparison: July 27, 2018. Findings: The left common femoral vein, left superficial femoral vein, and left popliteal vein are all compressible with normal flow and response to augmentation. The left posterior tibial and peroneal veins are patent. Impression: 1. Negative for left lower extremity deep venous thrombosis. Dictated by: Dictated on workstation # [id number]
== END 2018-08-19 14:01 | disposition home or self-care (01) ==
LOC: EDUNIT# 10:32 → ER 10:33
DX: M79.662 Pain in left lower leg (principal); J44.9 Chronic obstructive pulmonary disease, unspecified; G47.30 Sleep apnea, unspecified; I10 Essential (primary) hypertension; K21.9 Gastro-esophageal reflux disease without esophagitis; F41.9 Anxiety disorder, unspecified; F32.9 Major depressive disorder, single episode, unspecified; Z87.19 Personal history of other diseases of the digestive system; Z90.710 Acquired absence of both cervix and uterus; Z90.49 Acquired absence of other specified parts of digestive tract; Z79.51 Long term (current) use of inhaled steroids; Z82.49 Family history of ischemic heart disease and other diseases of the circulatory system
CPT/HCPCS: 36415; 71046; 80053; 85025; 85379; 85610; 85730

== ENCOUNTER → 2018-10-13 | Outpatient (CLI) | payer BC, OTHER ==
[~2018-10-13] MED LIST changes: -GABA600T2 PO; +GBPN600T PO; +IOHEXOL 350 MG/ML 100 ML (OMNIPAQUE 350) VIAL IV ONE; +NS 100 ML (IVPB) BAG IV ONE; +RECEIVED CONTRAST (Hold Metformin) IV SCH
[2018-10-13 08:29] LABS: BUN/CREATININE RATIO 17; CREATININE SERUM 0.78 MG/DL (0.60-1.30); GFR ESTIMATED > 60
--- NOTE | 2018-10-13 08:53 | Diagnostic Imaging Report ---
PROCEDURE: CT chest with contrast only. TECHNIQUE: Multiple contiguous axial images were obtained through the chest after administration of intravenous contrast. INDICATION: Followup on pulmonary nodules. COMPARISON: 07/27/2018. FINDINGS: Bilateral hilar lymph nodes have resolved. The lymph node in the aorticopulmonary window has decreased in size measuring 1.6 x 1.3 cm today previously 2.0 x 1.4 cm. No pathological appearing thoracic lymph nodes are found. Changes of COPD chronic with no dominant or suspicious lung mass. Trace atelectatic changes in the lingula. No evidence of pneumonia. Subcentimeter low density right lobe thyroid nodule stable and upper abdomen demonstrating fatty liver and small hiatal hernia chronic. IMPRESSION: No suspicious lung or rufina mass within the chest. Background COPD chronic. No acute or suspicious finding. Small hiatal hernia and fatty liver chronic. Dictated by: Dictated on workstation # [id number]
== END ==
LOC: RAD 07:59
PROVIDERS: ATTEND Nurse Practitioner Family
DX: J44.9 Chronic obstructive pulmonary disease, unspecified (principal); K44.9 Diaphragmatic hernia without obstruction or gangrene; K76.0 Fatty (change of) liver, not elsewhere classified; R91.8 Other nonspecific abnormal finding of lung field; R59.0 Localized enlarged lymph nodes; Z72.0 Tobacco use
CPT/HCPCS: 36415; 71260; 82565; 84520

== ENCOUNTER 2019-01-17 11:38 | Emergency (ER) | payer BC ==
[~2019-01-17] VITALS: Ht 157.5 cm; Wt 79.4 kg
[~2019-01-17 11:38] MED LIST changes: -IOHEXOL 350 MG/ML 100 ML (OMNIPAQUE 350) VIAL IV ONE; -NS 100 ML (IVPB) BAG IV ONE; -RECEIVED CONTRAST (Hold Metformin) IV SCH
[2019-01-17] MEDS ORDERED: CYCLOBENZAPRINE 10 MG (FLEXERIL) TAB PO SCH (12:15)
[2019-01-17] MEDS ORDERED: KETOROLAC 60 MG/2 ML VIAL IM ONE (12:15)
--- OUTSIDE RECORDS SUMMARY | 2019-01-17 12:18 | XMS REPORT ---
Author Author Migration, Doctor Organization [facility] Address Unknown Phone Unavailable Care Team Providers Care Rubber Down Name Role Phone Migration, Doctor Unavailable Unavailable PROBLEMS Type Condition ICD9-CM Code LBF77-CC Code Onset Dates Condition Status SNOMED Code Problem Hypertension I10 Active 59965902 Problem PVCs (premature ventricular contractions) I49.3 Active 74476941 Problem Sciatica M54.30 Active 21416703 Problem Lumbago with sciatica, right side M54.41 Active 211455916 Problem Reactive depression F32.9 Active 35218141 Problem Cervical disc disease M50.90 Active 821684566 Problem Gastroesophageal reflux disease, esophagitis presence not specified K21.9 Active 283213669 Problem Anxiety disorder, unspecified F41.9 Active 251411272 Problem Chronic maxillary sinusitis J32.0 Active 95856146 Problem Neck pain M54.2 Active 72666764 Problem Pulmonary emphysema, unspecified emphysema type J43.9 Active 77333652 Problem Other chronic pain G89.29 Active 88547468 Problem Mixed hyperlipidemia E78.2 Active 335086245 Problem Prediabetes R73.03 Active 956488594 Problem Sinusitis chronic, frontal J32.1 Active 44851445 Problem Right maxillary sinusitis J32.0 Active 05560749 ALLERGIES No Information ENCOUNTERS Encounter Location Date Diagnosis [facility] [address], [place] [address] Nov, Low back pain M54.5 [facility] [address], [place] [address] Nov, Low back pain M54.5 [facility] [address], [place] [address] Nov, [facility] [address] [address] Nov, [facility] [id number] [place] [address] 53737 -8182 Nov, Coughing R05 [facility] [address] [address]- [address] Oct, Low back pain M54.5 [facility] [id number] [place] [address] 56922 -9229 Oct, Fever R50.9 ; Acute non-recurrent maxillary sinusitis J01.00 and Acute bronchitis, unspecified organism J20.9 [facility] [id number] [place] [address] 39238- 2804 Oct, Low back pain M54.5 [facility] [id number] [place] [address] 92964- 7439 Sep, Low back pain M54.5 [facility] [id number] [place] [address] 31945- 2760 Sep, [facility] [id number] [place] [address] 21439- 6708 Sep, Low back pain M54.5 [facility] [id number] [place] [address] 39699- 0372 Sep, Bakers cyst M71.20 [facility] [id number] [place] [address] 65139- 1847 Sep, Bakers cyst M71.20 [facility] [id number] [place] [address] 73971 -2886 Sep, [facility] [id number] [place] [address] 37760- 8740 Aug, Low back pain M54.5 [facility] [id number] [place] [address] 50915- 2458 Aug, Low back pain M54.5 [facility] [id number] [place] [address] 58514 -5401 Aug, Other specified soft tissue disorders M79.89 and Pain in left lower leg M79.662 [facility] [id number] [place] [address] 40889- 0568 Aug, Low back pain M54.5 [facility] [id number] [place] [address] 27101- 9376 Jul, Low back pain M54.5 [facility] [id number] [place] [address] 46192- 3919 Jul, Low back pain M54.5 [facility] [id number] [place] [address] 88743- 1162 Jun, Low back pain M54.5 [facility] [id number] [place] [address] 41862- 6088 Jun, Low back pain M54.5 [facility] [id number] [place] [address] 31251- 9317 Jun, Low back pain M54.5 [facility] [id number] [place] [address] 19405- 5583 24 May, 2018 Elevated glucose R73.09 [facility] [id number] [place] [address] 89749- 1086 18 May, 2018 Elevated glucose R73.09 [facility] [id number] [place] [address] 98247- 4911 11 May, 2018 Screening for breast cancer Z12.31 ; Well woman exam Z01.419 and Hypertension I10 [facility] [id number] [place] [address] 61153- 8248 10 May, 2018 Low back pain M54.5 [facility] [id number] [place] [address] 52335- 6410 05 May, 2018 Low back pain M54.5 [facility] [id number] [place] [address] 10157- 5133 Apr, [facility] [id number] [place] [address] 21389- 6581 Apr, [facility] [address] 99983- 9050 Apr, Lumbago with sciatica, right side M54.41 ; Right maxillary sinusitis J32.0 ; Pulmonary emphysema, unspecified emphysema type J43.9 ; Hypertension I10 and Reactive depression F32.9 [facility] [address] 13986- 1091 Apr, [facility] [address] 93020- 8590 Apr, Low back pain M54.5 [facility] [address] 17426- 3798 Apr, Low back pain M54.5 [facility] [address] 64110- 3155 Mar, Gastroesophageal reflux disease, esophagitis presence not specified K21.9 and Low back pain M54.5 [facility] [address] 60471 -9507 Feb, Chronic maxillary sinusitis J32.0 [facility] [id number] [place] [address] 09840- 7327 Feb, Low back pain M54.5 [facility] [address] 31204- 0621 Feb, Low back pain M54.5 [facility] [id number] [place] [address] 57371- 8080 Feb, Low back pain M54.5 [facility] [address] 75330- 9770 January, [facility] [id number] [place] [address] 70717- 9140 January, Sinusitis chronic, frontal J32.1 [place] [id number] [place] [address] 40479- 4987 January, Lumbago with sciatica, right side M54.41 ; Cervical disc disease M50.90 ; Hypertension I10 and Gastroesophageal reflux disease, esophagitis presence not specified K21.9 [facility] [id number] [place] [address] 95397- 5648 Dec, Low back pain M54.5 [place] [address] 59440- 6501 Dec, Low back pain M54.5 [place] [address] 04167- 0857 Nov, [facility] [address] 12797 -5586 Nov, Right maxillary sinusitis J32.0 [place] [address] 95448- 9694 Nov, Low back pain M54.5 [facility] [id number] [place] [address] 60602 -7095 Oct, Sinusitis chronic, frontal J32.1 [place] [id number] [place] [address] 54431- 6915 Oct, Neck pain M54.2 [place] [id number] [place] [address] 38293- 4623 Sep, Low back pain M54.5 [place] [id number] [place] [address] 25318- 3862 Sep, Neck pain M54.2 [place] [address] 20170- 4589 Sep, Lumbago with sciatica, right side M54.41 ; Hypertension I10 ; Bronchitis J40 and Anxiety disorder, unspecified F41.9 [place] [address] 59896- 0946 Aug, Neck pain M54.2 and Low back pain M54.5 [facility] [address] 61631- 6422 16 Jul, 2017 Neck pain M54.2 and Low back pain M54.5 [facility] [address] 97982- 7958 Jul, Neck pain M54.2 [facility] [address] 01455- 8472 Jun, Low back pain M54.5 and Neck pain M54.2 [place] [address] 30140- 9307 22 May, 2017 Low back pain M54.5 and Neck pain M54.2 [place] [address] 57061- 8818 21 May, 2017 [facility] [address] 20745 -5890 14 May, 2017 Bronchitis J40 [place] [address] 47786- 5565 11 Apr, 2017 Hyperglycemia R73.9 [place] [address] 52754- 9737 08 Apr, 2017 Hyperglycemia R73.9 [place] [address] 40821- 7791 07 Apr, 2017 Gastroesophageal reflux disease, esophagitis presence not specified K21.9 ; Mixed hyperlipidemia E78.2 ; Neck pain M54.2 and PVCs ( premature ventricular contractions) I49.3 [facility] [address] 58166- 9313 Mar, Low back pain M54.5 [facility] [address] 84442- 3027 Feb, Low back pain M54.5 and Gastroesophageal reflux disease, esophagitis presence not specified K21.9 [facility] [address] 90730- 4296 January, Dyspnea on exertion R06.09 [facility] [address] 09860- 8446 January, Hypertension I10 [place] [address] 89270- 9768 January, [facility] [address] 96845- 5089 January, Low back pain M54.5 [place] [address] 66530- 3228 January, Low back pain M54.5 [place] [address] 93847- 6684 January, Gastroesophageal reflux disease, esophagitis presence not specified K21.9 ; Lumbago with sciatica, right side M54.41 and Dyspnea on exertion R06.09 [facility] [id number] [place] [address] 66570- 4335 Nov, [facility] [address] 42887- 0126 Nov, [place] [address] 59446- 5631 Nov, Gastroesophageal reflux disease, esophagitis presence not specified K21.9 and Bronchitis J40 [facility] [id number] [place] [address] 33585- 9983 15 Oct, 2016 Low back pain M54.5 and Anxiety disorder, unspecified F41.9 [place] [address] 71582- 8402 10 Oct, 2016 Bronchitis J40 ; Hypertension I10 ; Sciatica M54.30 and Paresthesias R20.2 [facility] [address] [id number] Sep, Dental examination Z01.20 [facility] [address] [id number] Sep, Dental examination Z01.20 and Dental caries K02.9 [facility] [id number] [place] [address] 603809- 4484 Aug, [facility] [id number] [place] [address] 669601- 7835 Jul, Low back pain M54.5 and Anxiety disorder, unspecified F41.9 [facility] [id number] [place] [address] 257564- 1625 Jul, [facility] [id number] [place] [address] 378494- 1457 Jun, Lumbago with sciatica, right side M54.41 ; Cervical disc disease M50.90 and Gastroesophageal reflux disease, esophagitis presence not specified K21.9 [facility] [id number], [place] [address]- 6053 Jun, [facility] [id number] [place] [address] 03131- 4719 Jun, [facility] [id number] [place] [address] 54889- 7070 Jun, [facility] [id number], [place] [address]- 1546 Jun, [facility] [id number], [place] [address]- 0950 Jun, [facility] [address] [facility] [id number] [address]- 1182 23 May, 2016 [facility] [id number] 4054 16 May, 2016 [facility] [id number] 5699 May, [facility] [id number] [address]- 3697 Apr, [facility] [id number] [place] [address] 03162- 6084 Apr, [facility] [id number] [place] [address] 52919- 4759 Apr, [facility] [id number] [place] [address] 55165- 6703 Apr, Cervical disc disease M50.90 [facility] [id number] [place] [address] 16758- 3111 Apr, [facility] [id number] [place] [address] 10490- 9774 Apr, Neck pain M54.2 ; Hypertension I10 and Reactive depression F32.9 [facility] [id number] [place] [address] 38548- 9145 Mar, [facility] [id number] [place] [address] 01846- 7504 Mar, [facility] [id number] [place] [address] 06471- 5379 Mar, [facility] [id number] [place] [address] 99032- 5812 Feb, Sciatica M54.30 [facility] [id number] [place] [address] 05896- 3990 Feb, Paresthesias R20.2 ; Sciatica M54.30 and Reactive depression F32.9 [facility] [id number] [place] [address] 05688- 7509 Feb, [facility] [id number] [place] [address] 91360- 5435 January, [facility] [id number] [place] [address] 84371- 7189 January, Hyperlipemia, mixed E78.2 ; Other abnormalities of heart beat R00.8 and Anxiety F41.9 [facility] [id number] [place] [address] 08280- 2439 January, [facility] [id number] [place] [address] 99044- 2170 January, Low back pain M54.5 [facility] [id number] [place] [address] 47859- 5438 January, Anxiety disorder, unspecified F41.9 [facility] [id number] [place] [address] 67951- 5602 Dec, Ventricular bigeminy I49.9 [facility] [id number] [place] [address] 46573- 1170 Dec, [facility] [id number] [place] [address] 66597- 7046 Dec, Low back pain M54.5 [facility] [id number] [place] [address] 91988- 6782 Dec, Sciatica M54.30 [facility] [id number] [place] [address] 74450- 1720 Nov, Major depressive disorder, single episode, unspecified F32.9 [facility] [id number] [place] [address] 61262- 0836 Nov, Sciatica M54.30 [facility] [id number] [place] [address] 59961- 9352 14 Nov, 2015 [facility] [id number] [place] [address] 80812- 8846 Nov, [facility] [id number] [place] [address] 53549- 3014 Nov, Anxiety disorder, unspecified F41.9 [facility] [id number] [place] [address] 75953- 1629 Nov, [place] [id number] [place] [address] 67820- 3247 Nov, Depressed F32.9 and Anxiety F41.9 [facility] [address] 20913- 3507 Nov, Lumbago 724.2 ; Sciatica M54.30 and PVCs (premature ventricular contractions) I49.3 [facility] [address] 72335- 3786 Oct, [facility] [address] 42239- 2182 Oct, [facility] [address] 33388- 4387 Oct, Sciatica M54.30 and Hypertension I10 [place] [address] 19072- 1891 Oct, [facility] [id number] [place] [address] 51188- 2227 Oct, [facility] [address] 21579- 4240 Oct, [facility] [id number] [place] [address] 08077- 4027 Sep, [facility] [address] 15693- 1268 Sep, [facility] [id number] [place] [address] 53835- 2690 Sep, [facility] [id number] [place] [address] 97250- 4704 Sep, Ventricular arrhythmia I49.9 [facility] [id number] [place] [address] 93955- 5697 Sep, Ventricular bigeminy I49.9 and Hypertension I10 [facility] [address] [place] [address]- 3876 Sep, Lumbago M54.5 and Ventricular bigeminy I49.9 [facility] [id number] [place] [address] 51326- 9300 Sep, [facility] [address], [place] [address]- 2512 Aug, [facility] [id number] [place] [address] 49566- 2856 Aug, [facility] [address], [place] [address]- 6034 Aug, [facility] [id number] [place] [address] 18400- 5349 Aug, [facility] [id number] [place] [address] 08925- 9932 Aug, [facility] [id number] [place] [address] 06366- 1559 Jul, [facility] [address], [place] [address]- 9776 Jun, [facility] [address], [place] [address]- 1881 May, [facility] [address], [place] [address]- 5290 May, [facility] [address], [place] [address]- 5993 May, Lumbago 724.2 and Depressive disorder, not elsewhere classified 311 [facility] [address], [place] [address]- 5228 Apr, UTI (urinary tract infection) 599.0 [facility] [id number] [address]- 0825 Apr, UTI (urinary tract infection) 599.0 and Depression 311 [facility] [address] [address]- 4883 Mar, [facility] [id number] [address]- 9175 Mar, [facility] [id number], [place] [address]- 6145 Mar, [facility] [address], [place] [address]- 7042 Mar, Unspecified essential hypertension 401.9 ; Lumbago 724.2 and Anxiety 300.00 [facility] [id number] [place] [address]- 6929 Mar, [facility] [address], [place] [address]- 3266 Feb, [facility] [address], [place] [address]- 2092 Feb, [facility] [address], [place] [address]- 0379 January, [facility] [id number] [address]- 3911 Dec, [facility] [id number] [address]- 9242 Dec, [facility] [address], [place] [address]- 1661 Oct, [facility] [place] [facility] [id number] [address]- 3516 Oct, [facility] [place] [facility] [id number]- 6435 Oct, [facility] [place] [facility] [id number]- 7147 Oct, [facility] [place] [facility] [id number]- 4076 Sep, [facility] [place] [facility] [address] [facility] [id number] [place] [address]- 1802 Sep, [facility] [place] [facility] [address] [id number] [place] [address]- 3822 Sep, [facility] [place] [facility] [address] [id number] [place] [address]- 5020 Sep, [facility] [place] [facility] [address] [id number] [place] [address]- 3494 Aug, [facility] [place] [facility] [address] [id number] [place] [address]- 4173 Aug, [facility] [place] [facility] [address] [id number] [place] 6081 Jul, [facility] [place] [facility] [address] [id number] [place] [address]- 4581 Jul, [facility] [place] [facility] [address] [id number] [place] [address]- 7390 Jun, [facility] [place] [facility] [address] [id number] [place] [address]- 0432 Jun, [facility] [place] [facility] [address] [id number] [place] [address]- 8093 Jun, [facility] [place] [facility] [address] [id number] [place] [address]- 7608 Jun, [facility] [place] [facility] [address] [id number] [place] [address]- 0856 Jun, [facility] [place] [facility] [address] [id number] [place] [address]- 7779 Jun, [facility] [place] [facility] [address] [id number] [place] [address]- 7725 May, [facility] [place] [facility] [address] [id number] [place] [address]- 9050 May, [facility] [place] [facility] [address] [id number] [place] [address] Apr, [facility] [place] [facility] [address] [id number] [place] [address] Apr, [facility] [place] [facility] [address] [id number] [place] [address] Apr, [facility] [place] [facility] [address] [id number] [place] [address] Apr, [facility] [place] [facility] [address] [id number] [place] [address] Mar, [facility] [place] [facility] [address] [id number] [place] [address] Mar, [facility] [place] [facility] [address] [id number] [place] [address] Mar, [facility] [place] [facility] [address] [id number] [place] [address] Mar, [facility] [place] [facility] [address] [id number] [place] [address] Mar, [facility] [place] [facility] [address] [id number] [place] [address] Mar, [facility] [place] [facility] [address] [id number] [place] [address] Mar, [facility] [place] [facility] [address] [id number] [place] [address] Mar, [facility] [place] [facility] [address] [id number] [place] [address] Feb, [facility] [place] [facility] [address] [id number] [place] [address] Feb, [facility] [place] [facility] [address] [id number] [place] [address] January, [facility] [place] [facility] [address] [id number] [place] [address] January, [facility] [place] [facility] [address] [id number] [place] [address] January, [facility] [address] [id number] [place] [address] January, [facility] [place] [facility] [address] [id number] [place] [address] Dec, [facility] [place] [facility] [address] [id number] [place] [address] Dec, [facility] [place] [facility] [address] [id number] [place] [address] Dec, [facility] [place] [facility] [address] [id number] [place] [address] Dec, [facility] [place] [facility] [address] [id number] [place] [address] Nov, [facility] [place] [facility] [address] [id number] [place] [address] Nov, [facility] [place] [facility] [address] [id number] [place] [address] Sep, [facility] [place] [facility] [address] [id number] [place] [address] Sep, [facility] [place] [facility] [address] [id number] [place] [address] Sep, [facility] [place] [facility] [address] [id number] [place] [address]- [address] Sep, [facility] [place] [facility] [address] [id number] [place] [address]- [address] Sep, [facility] [place] [facility] [address] [id number] [place] [address] Sep, [facility] [place] [facility] [address] [id number] [place] [address] Aug, [facility] [place] [facility] [address] [id number] [place] [address] Aug, [facility] [place] [facility] [address] [id number] [place] [address] Aug, [facility] [address] [id number] [place] [address] Aug, [facility] [place] [facility] [address] [id number] [place] [address] Jul, [facility] [place] [facility] [address] [id number] [place] [address] Jul, [facility] [place] [facility] [address] [id number] [place] [address] Jun, [facility] [place] [facility] [address] [id number] [place] [address] Jun, [facility] [address] [id number] [place] [address] Mar, [facility] [address] [id number] [place] [address] January, [facility] [address] [id number] [place] [address] Dec, [facility] [place] [facility] [address] [id number] [place] [address] Dec, [facility] [place] [facility] [address] [id number] [place] [address] Nov, [facility] [place] [facility] [address] [id number] [place] [address] Nov, [facility] [place] [facility] [address] [id number] [place] [address] Oct, [facility] [place] [facility] [address] [id number] [place] [address] January, [facility] [place] [facility] [address] [id number] [place] [address] Dec, [facility] [place] [facility] [address] [id number] [place] [address] Sep, IMMUNIZATIONS No Known Immunizations SOCIAL HISTORY Never Assessed REASON FOR VISIT EMR-[facility] [place] PLAN OF CARE VITAL SIGNS MEDICATIONS Medication Instructions Dosage Frequency Start Date End Date Duration Status Valium 5 mg 1 tablet by Oral route 1-2 times per day PRN anxiety-, need to make a follow up appt Oct, Active Mobic 7.5 mg take 1 Tablet by Oral route 1 time per day Jun, Active RESULTS No Results PROCEDURES No Known [...]
--- OUTSIDE RECORDS SUMMARY | 2019-01-17 12:19 | XMS REPORT ---
Author Author MIROSLAVA KENNEDY Organization [facility] Address [address] [place] [address] Care Team Providers Care Driving Instructor Name Role Phone MIROSLAVA KENNEDY Unavailable PROBLEMS Type Condition ICD9-CM Code QBI81-ZB Code Onset Dates Condition Status SNOMED Code Problem Cervical disc disease M50.90 Active 926861411 Problem Anxiety disorder, unspecified F41.9 Active 678948529 Problem Gastroesophageal reflux disease, esophagitis presence not specified K21.9 Active 555722462 Problem Pulmonary emphysema, unspecified emphysema type J43.9 Active 90554588 Problem Chronic maxillary sinusitis J32.0 Active 71223686 Problem Prediabetes R73.03 Active 427995016 Problem Mixed hyperlipidemia E78.2 Active 688470331 Problem Right maxillary sinusitis J32.0 Active 02045751 Problem Sinusitis chronic, frontal J32.1 Active 06945334 Problem Hypertension I10 Active 91681219 Problem Reactive depression F32.9 Active 07097287 Problem Lumbago with sciatica, right side M54.41 Active 221513576 Problem Sciatica M54.30 Active 11295418 Problem Other chronic pain G89.29 Active 13257712 Problem PVCs (premature ventricular contractions) I49.3 Active 59489242 Problem Neck pain M54.2 Active 45901551 ALLERGIES No Known Allergies ENCOUNTERS Encounter Location Date Diagnosis [facility] [address] [id number], [place] [address] Aug, Other specified soft tissue disorders M79.89 and Pain in left lower leg M79.662 [facility] [address], [place] [address] Aug, Low back pain M54.5 [facility] [id number], [place] [address] 8[address] Jul, Low back pain M54.5 [facility] [id number] [place] [address] 16035- 1015 Jul, Low back pain M54.5 [facility] [id number] [place] [address] 99783- 1517 Jun, Low back pain M54.5 [facility] [id number] [place] [address] 06041- 3096 Jun, Low back pain M54.5 [facility] [id number] [place] [address] 74941- 7174 Jun, Low back pain M54.5 [facility] [id number] [place] [address] 09277- 6154 24 May, [address] [facility] [id number] [place] [address] 50213- 1536 18 May, [address] [facility] [id number] [place] [address] 73987- 5326 11 May, 2018 Screening for breast cancer Z12.31 ; Well woman exam Z01.[address] [facility] [id number] [place] [address] 77029- 1651 10 May, 2018 Low back pain M54.5 [facility] [id number] [place] [address] 42577- 8134 05 May, 2018 Low back pain M54.5 [facility] [id number] [place] [address] 85052- 8962 Apr, [facility] [id number] [place] [address] 91849- 8538 Apr, [facility] [id number] [place] [address] 07935- 6339 Apr, Lumbago with sciatica, right side M54.41 ; Right maxillary sinusitis J32.0 ; Pulmonary emphysema, unspecified emphysema type J43.9 ; Hypertension I10 and Reactive depression F32.9 [facility] [address] 02525- 0190 Apr, [facility] [address] 55764- 4072 Apr, Low back pain M54.5 [facility] [address] 25564- 3471 Apr, Low back pain M54.5 [facility] [address] 14482- 9755 Mar, Gastroesophageal reflux disease, esophagitis presence not specified K21.9 and Low back pain M54.5 [facility] [id number] [place] [address] 35105 -8223 Feb, Chronic maxillary sinusitis J32.0 [facility] [address] 16235- 7608 Feb, Low back pain M54.5 [facility] [address] 35389- 5038 Feb, Low back pain M54.5 [facility] [address] 28892- 2105 Feb, Low back pain M54.5 [facility] [address] 50750- 8247 January, [facility] [address] 10193- 2973 January, Sinusitis chronic, frontal J32.1 [facility] [address] 11141- 6862 January, Lumbago with sciatica, right side M54.41 ; Cervical disc disease M50.90 ; Hypertension I10 and Gastroesophageal reflux disease, esophagitis presence not specified K21.9 [facility] [address] 68581- 2514 Dec, Low back pain M54.5 [facility] [id number] [place] [address] 69892- 5521 Dec, Low back pain M54.5 [facility] [id number] [place] [address] 92546- 4805 Nov, [facility] [address] 08050 -9341 Nov, Right maxillary sinusitis J32.0 [facility] [address] 62458- 8612 Nov, Low back pain M54.5 [facility] [address] 27267 -9021 Oct, Sinusitis chronic, frontal J32.1 [place] [address] 29491- 0160 Oct, Neck pain M54.2 [facility] [address] 79752- 5362 Sep, Low back pain M54.5 [facility] [address] 80132- 4186 Sep, Neck pain M54.2 [place] [id number] [place] [address] 74770- 9782 Sep, Lumbago with sciatica, right side M54.41 ; Hypertension I10 ; Bronchitis J40 and Anxiety disorder, unspecified F41.9 [facility] [id number] [place] [address] 87698- 8417 Aug, Neck pain M54.2 and Low back pain M54.5 [facility] [id number] [place] [address] 15963- 2959 Jul, Neck pain M54.2 and Low back pain M54.5 [facility] [address] 06898- 8289 Jul, Neck pain M54.2 [place] [address] 53321- 0878 Jun, Low back pain M54.5 and Neck pain M54.2 [facility] [address] 59274- 7403 May, Low back pain M54.5 and Neck pain M54.2 [facility] [address] 20381- 0921 21 May, 2017 [facility] [address] 41613 -8916 14 May, 2017 Bronchitis J40 [place] [address] 93982- 9473 11 Apr, 2017 Hyperglycemia R73.9 [place] [address] 27031- 1121 08 Apr, 2017 Hyperglycemia R73.9 [place] [address] 73640- 0176 Apr, Gastroesophageal reflux disease, esophagitis presence not specified K21.9 ; Mixed hyperlipidemia E78.2 ; Neck pain M54.2 and PVCs ( premature ventricular contractions) I49.3 [place] [id number] [place] [address] 97445- 0047 Mar, Low back pain M54.5 [place] [address] 46495- 4252 Feb, Low back pain M54.5 and Gastroesophageal reflux disease, esophagitis presence not specified K21.9 [place] [address] 62563- 8893 January, Dyspnea on exertion R06.09 [place] [id number] [place] [address] 26369- 0660 January, Hypertension I10 [place] [id number] [place] [address] 01756- 7279 January, [facility] [address] 44805- 1759 January, Low back pain M54.5 [facility] [id number] [place] [address] 68925- 1995 January, Low back pain M54.5 [facility] [address] 41926- 1050 January, Gastroesophageal reflux disease, esophagitis presence not specified K21.9 ; Lumbago with sciatica, right side M54.41 and Dyspnea on exertion R06.09 [place] [address] 64147- 0774 Nov, [place] [address] 81669- 5933 Nov, [place] [address] 66223- 6356 Nov, Gastroesophageal reflux disease, esophagitis presence not specified K21.9 and Bronchitis J40 [place] [id number] [place] [address] 87395- 7158 15 Oct, 2016 Low back pain M54.5 and Anxiety disorder, unspecified F41.9 [place] [id number] [place] [address] 61307- 4353 10 Oct, 2016 Bronchitis J40 ; Hypertension I10 ; Sciatica M54.30 and Paresthesias R20.2 [facility] [id number] [place] [address] [id number] Sep, Dental examination Z01.20 [facility] [id number] [place] [address] [id number] Sep, Dental examination Z01.20 and Dental caries K02.9 [place] [id number] [place] [address] 80225- 1944 Aug, [facility] [address], [place] [address]- 8209 Jul, Low back pain M54.5 and Anxiety disorder, unspecified F41.9 [facility] [id number] [place] [address]- 0685 Jul, [facility] [id number] [place] [address] 46974- 9735 Jun, Lumbago with sciatica, right side M54.41 ; Cervical disc disease M50.90 and Gastroesophageal reflux disease, esophagitis presence not specified K21.9 [facility] [id number] [place] [address], [place] [address]- 8616 Jun, [facility] [id number] [place] [address] 30604- 1459 Jun, [facility] [id number] [place] [address] 46380- [address] Jun, [facility] [id number] [place] [address] 40576- 9416 Jun, [facility] [id number] [place] [address], [place] [address]- 0558 Jun, [facility] [id number] [place] [address] 86059- [address] May, [facility] [id number] [place] [address] 96727- 9422 May, [facility] [id number] [place] [address] 13477- 7889 May, [facility] [id number] [place] [address], [place] [address]- [address]166 Apr, [facility] [id number], [place] [address]- 9880 Apr, [facility] [id number] [place] [address] 79769- 6634 Apr, [facility] [id number] [place] [address] 99537- 6021 Apr, Cervical disc disease M50.90 [facility] [id number] [place] [address] 04588- 0211 Apr, [facility] [id number] [place] [address] 06078- 7882 Apr, Neck pain M54.2 ; Hypertension I10 and Reactive depression F32.9 [facility] [id number] [place] [address] 30722- 9846 Mar, [facility] [address] 01688- 1879 Mar, [facility] [id number] [place] [address] 90637- 4558 Mar, [facility] [address] 16411- 4980 Feb, Sciatica M54.30 [facility] [id number] [place] [address] 69468- 6653 Feb, Paresthesias R20.2 ; Sciatica M54.30 and Reactive depression F32.9 [place] [id number] [place] [address] 34579- 1341 Feb, [facility] [id number] [place] [address] 65629- 4648 January, [facility] [id number] [place] [address] 02430- 7706 January, Hyperlipemia, mixed E78.2 ; Other abnormalities of heart beat R00.[address] [facility] [id number] [place] [address] 38155- 3155 January, [facility] [id number] [place] [address] 10694- 1133 January, Low back pain M54.5 [facility] [id number] [place] [address] 39430- 1864 January, Anxiety disorder, unspecified F41.9 [facility] [id number] [place] [address] 97147- 7436 Dec, Ventricular bigeminy I49.9 [facility] [id number] [place] [address] 01704- 2992 Dec, [facility] [id number] [place] [address] 74592- 7848 Dec, Low back pain M54.5 [facility] [id number] [place] [address] 06125- 5016 Dec, Sciatica M54.30 [facility] [id number] [place] [address] 33607- 0686 Nov, Major depressive disorder, single episode, unspecified F32.9 [facility] [id number] [place] [address] 72997- 9337 Nov, Sciatica M54.30 [facility] [id number] [place] [address] 38102- 7074 Nov, [facility] [id number] [place] [address] 69919- 2850 Nov, [facility] [id number] [place] [address] 07770- 1735 Nov, Anxiety disorder, unspecified F41.9 [facility] [id number] [place] [address] 69709- 6614 Nov, [facility] [id number] [place] [address] 09679- 4428 Nov, Depressed F32.[address] [facility] [id number] [place] [address] 10174- 4371 Nov, Lumbago 724.2 ; Sciatica M54.30 and PVCs (premature ventricular contractions) I49.3 [facility] [id number] [place] [address] 12860- 7069 Oct, [facility] [id number] [place] [address] 64230- 7496 Oct, [facility] [id number] [place] [address] 91686- 1186 Oct, Sciatica M54.[address] [facility] [id number] [place] [address] 03596- 1248 Oct, [facility] [address] 91562- 5910 Oct, [facility] [address] 09226- 3075 Oct, [facility] [address] 27077- 5758 Sep, [facility] [id number] [place] [address] 82805- 0170 Sep, [facility] [id number] [place] [address] 73222- 8922 Sep, [facility] [id number] [place] [address] 82245- 5934 Sep, Ventricular arrhythmia I49.9 [facility] [address] 84557- 1633 Sep, Ventricular bigeminy I49.[address] [facility] [id number] [place] [address] 62121- 8852 Sep, Lumbago M54.5 and Ventricular bigeminy I49.9 [facility] [id number] [place] [address] 60467- 6071 Sep, [facility] [id number] [place] [address] 27064- 1521 Aug, [facility] [address] [facility] [id number] [address]- 3078 Aug, [facility] [address] [facility] [id number], [place] [address]- 1394 Aug, [facility] [address] [facility] [id number], [place] [address]- 9475 Aug, [facility] [address] [facility] [id number], [place] [address]- 8492 Aug, [facility] [address] [facility] [id number], [place] [address]- [address] Jul, [facility] [id number], [place] [address]- 0714 Jun, [facility] [address], [place] [address]- 4384 May, [facility] [id number], [place] [address]- 4435 May, [facility] [id number] 1159 May, Lumbago 724.2 and Depressive disorder, not elsewhere classified [address] [facility] [id number], [place] [address]- 6242 Apr, UTI (urinary tract infection) 599.0 [facility] [id number], [place] [address]- 9596 Apr, UTI (urinary tract infection) 599.[address] [facility] [id number], [place] [address]- 7768 Mar, [facility] [id number], [place] [address]- 5[address] Mar, [facility] [id number], [place] [address]- 2770 Mar, [facility] [id number], [place] [address]- 7089 Mar, Unspecified essential hypertension 401.9 ; Lumbago 724.[address] [facility] [id number] [place] [place] [address]- 9094 Mar, [facility] [id number] [place] [address]- 2526 Feb, [facility] [address] [facility] [id number] [place] [address]- [address] Feb, [facility] [id number] [place] [address]- 4565 January, [facility] [id number] [place] [address]- 3167 Dec, [facility] [id number] [place] [address]- 9487 Dec, [facility] [id number] [place] [address]- 2338 Oct, [facility] [id number] [place] [address]- 5956 Oct, [facility] [id number] [place] [address]- 0475 Oct, [facility] [id number] [place] [address]- 6394 Oct, [facility] [id number] [place] [address]- 5073 Sep, [facility] [id number]- [address] Sep, [facility] [id number] [place] [address]- 1748 Sep, [facility] [id number] [place] [address]- 3226 Sep, [facility] [place] [facility] [address] [id number] [place] [address]- 6577 Aug, [facility] [place] [facility] [address] [id number] [place] [address]- 0498 Aug, [facility] [place] [facility] [address] [id number] [place] [address]- 2028 Jul, [facility] [place] [facility] [address] [id number] [place] [address]- 4641 Jul, [facility] [place] [facility] [address] [id number] [place] [address]- 3912 Jun, [facility] [place] [facility] [address] [id number] [place] [address]- 9924 Jun, [facility] [place] [facility] [address] [id number] [place] [address]- 6703 Jun, [facility] [place] [facility] [address] [id number] [place] [address]- 3045 Jun, [facility] [place] [facility] [address] [id number] [place] [address]- 1880 Jun, [facility] [place] [facility] [address] [id number] [place] [address]- 8421 Jun, [facility] [place] [facility] [address] [id number] [place] [address]- 9284 May, [facility] [place] [facility] [address] [id number], [place] [address]- 6193 May, [facility] [place] [facility] [address] [id number] [place] [address]- 5353 Apr, [facility] [place] [facility] [address] [id number] [place] [address]- 8027 Apr, [facility] [place] [facility] [address] [id number] [place] 1141 Apr, [facility] [place] [facility] [address] [id number] [place] [address]- 4847 Apr, [facility] [place] [facility] [address] [id number] [place] [address] Mar, [facility] [place] [facility] [address] [id number] [place] [address] Mar, [facility] [place] [facility] [address] [id number] [place] [address] Mar, [facility] [place] [facility] [address] [id number] [place] [address] Mar, [facility] [place] [facility] [address] [id number] [place] [address] Mar, [facility] [place] [facility] [address] [id number] [place] [address] Mar, [facility] [place] [facility] [address] [id number] [place] [address] Mar, [facility] [place] [facility] [address] [id number] [place] [address] Mar, [facility] [place] [facility] [address] [id number] [place] [address] Feb, [facility] [place] [facility] [address] [id number] [place] [address] Feb, [facility] [place] [facility] [address] [id number] [place] [address] January, [facility] [place] [facility] [address] [id number] [place] [address] January, [facility] [place] [facility] [address] [id number] [place] [address] January, [facility] [place] [facility] [address] [id number] [place] [address] January, [facility] [place] [facility] [address] [id number] [place] [address] Dec, [facility] [place] [facility] [address] [id number] [place] [address] 14 Dec, 2013 [facility] [address] [id number] [place] [address] 14 Dec, 2013 [facility] [place] [facility] [address] [id number] [place] [address] 14 Dec, 2013 [facility] [place] [facility] [address] [id number] [place] [address] 13 Nov, 2013 [facility] [place] [facility] [address] [id number] [place] [address] 13 Nov, 2013 [facility] [place] [facility] [address] [id number] [place] [address] Sep, [facility] [place] [facility] [address] [id number] [place] [address] Sep[facility] [place] [facility] [address] [id number] [place] [address] 16 Sep, 2013 [facility] [place] [facility] [address] [id number] [place] [address] 16 Sep, 2013 [facility] [place] [facility] [address] [id number] [place] [address] Sep, [facility] [place] [facility] [address] [id number] [place] [address] Sep, [facility] [place] [facility] [address] [id number] [place] [address] Aug, [facility] [place] [facility] [address] [id number] [place] [address] Aug, [facility] [place] [facility] [address] [id number] [place] [address] Aug, [facility] [place] [facility] [address] [id number] [place] [address] Aug, [facility] [place] [facility] [address] [id number] [place] [address] Jul, [facility] [address] [facility] [id number] [address] Jul, [facility] [address] [facility] [id number], [place] [address] Jun, [facility] [address] [facility] [facility] [id number], [place] [address] Jun, [facility] [address] [facility] [id number], [place] [address] Mar, [facility] [address] [facility] [id number], [place] [address] January, [facility] [address] [id number] [address] Dec, [facility] [id number] [address] Dec, [facility] [id number] [address] Nov, [facility] [address] [id number] [address] Nov, [facility] [address] [id number] [address] Oct, [facility] [id number] [address] January, [facility] [address] [id number], [place] [address] Dec, [facility] [address] [id number], [place] [address] Sep, IMMUNIZATIONS No Known Immunizations SOCIAL HISTORY Never Assessed REASON FOR VISIT went to via [facility] ER for left lower leg pain. did ultrasound et they ruled out DVT. now reports this am she has shooting pain in her left lower leg that radiated up to her back. does report pain in this extremity whith bending et ambulation-did ambulate without assistance into the [facility] this am. [email or web address] PLAN OF CARE Activity Details Follow Up prn Reason: VITAL SIGNS Height 62 in 2018-08-29 Weight 175.4 lbs 2018-08-29 Temperature 98.4 degrees Fahrenheit 2018-08-29 Heart Rate 88 bpm 2018-08-29 Respiratory Rate 20 2018-08-29 BMI 32.08 kg/m2 2018-08-29 Blood pressure systolic 130 mmHg 2018-08-29 Blood pressure diastolic 76 mmHg 2018-08-29 MEDICATIONS Medication Instructions Dosage Frequency Start Date End Date Duration Status Metoprolol Succinate ER 50MG TAKE ONE TABLET BY MOUTH ONCE DAILY 90 Active ProAir HFA 108 (90 Base) MCG/ACT Inhalation every 4 hrs 2 puffs as needed 4h 14 May, 2017 5 days Active C-PAP Machine Active Zoloft 50MG Orally Once a day 1 tablet 24h Active Lipitor 10 MG Orally Once a day 1 tablet 24h Active Protonix 40 mg Orally twice a day 1 tablet 12h 30 Nov, 2016 30 day(s) Active Diazepam 5MG Orally, each fill must last 30 days Twice a day 1 tablet as needed 12h 28 days Active Tramadol HCl 50MG Orally, each fill must last 30 days every 6 hours 1 tablet 6h 28 days Active Flonase 50 MCG/ACT Nasally twice a day 1 spray in each nostril 12h Oct, 30 days Active Cyclobenzaprine HCl 10MG Orally Three times a day 1 tablet 8h Active Gabapentin 600 mg Orally 2 times a day 1 tablet 12h Active RESULTS No Results PROCEDURES No [...]
--- OUTSIDE RECORDS SUMMARY | 2019-01-17 12:36 | XMS REPORT | Continuity of Care Document ---
Author Organization Unknown Address Unknown Allergies Active Description Code Type Severity Reaction Onset Reported/Identified Relationship to Patient Clinical Status Yes No Allergy Information Available [id number] Drug Allergy Unknown N/A 2012 Yes No Known Drug Allergies [id number] Drug Allergy Unknown N/A 04/28/2018 Medications There [...] KINNEY MD 780.4 Dizziness And Giddiness 09/21/2010 GREGORIA MEJIA, JOHANNY 786.09 Respiratory Abnormality Other 09/21/2010 GREGORIA MEJIA, [...] MEJIA, JOHANNY 401.9 UNSPECIFIED ESSENTIAL HYPERTENSION 12/10/2012 JOHANNY KINNEY MD 728.87 MUSCLE WEAKNESS [...] JOHANNY KINNEY MD 790.29 ABNORMAL GLUCOSE 09/29/2013 JOHANNY KINNEY MD 790.29 ABNORMAL GLUCOSE 09/29/2013 JOHANNY KINNEY MD [...] 10/24/2015 TRISTAN BOOKER MD Ot Z79.899 OTHER TOOLING INSPECTOR (CURRENT) DRUG THERAPY 10/26/2015 VIOLA AGARWAL MD Ot I49.9 10/26/2015 VIOLA AGARWAL MD Ot R07.9 11/25/2015 ALECIA MEJAI, HARRY Adams Ot F17.210 NICOTINE DEPENDENCE, CIGARETTES, UNCOMPL 11/25/2015 HARRY ALSTON MD Ot R00.8 OTHER ABNORMALITIES OF HEART BEAT 11/28/2015 HARRY ALSTON MD Ot F17.210 11/28/2015 HARRY ALSTON MD Ot R00.8 12/27/2015 FARHAN WARREN Ot S90.01XA CONTUSION OF RIGHT ANKLE, INITIAL ENCOUN 12/27/2015 OFELIA WARRENEN Christian Ot S90.31XA CONTUSION OF RIGHT FOOT, INITIAL ENCOUNT 12/27/2015 OFELIA WARRENEN Christian Ot W31.89XA CONTACT WITH OTHER SPECIFIED MACHINERY, 12/27/2015 FARHAN WARREN Ot Y92.[address] IN [facility] NON-INSTITUT (PRIVATE 12/27/2015 FARHAN WARREN Ot Y99.8 OTHER EXTERNAL CAUSE STATUS 12/28/2015 VIOLA AGARWAL MD Ot I49.9 CARDIAC ARRHYTHMIA, UNSPECIFIED 12/28/2015 VIOLA AGARWAL MD Ot R07.9 CHEST PAIN, UNSPECIFIED 12/28/2015 FARHAN WARREN Ot S90.01XA CONTUSION OF RIGHT ANKLE, INITIAL ENCOUN 12/28/2015 FARHAN WARREN Ot S90.31XA CONTUSION OF RIGHT FOOT, INITIAL ENCOUNT 12/28/2015 FARHAN WARREN Ot W31.89XA CONTACT WITH OTHER SPECIFIED MACHINERY, 12/28/2015 FARAHN WARREN Ot Y92.[address] IN [facility] NON-[facility] (PRIVATE 12/28/2015 FARHAN WARREN Ot Y99.8 OTHER EXTERNAL CAUSE STATUS 12/29/2015 VIOLA AGARWAL MD Ot I49.9 CARDIAC ARRHYTHMIA, UNSPECIFIED 12/29/2015 VIOLA AGARWAL MD Ot R07.9 CHEST PAIN, UNSPECIFIED 02/12/2016 Ot 305.1 TOBACCO USE DISORDER 02/12/2016 Ot 683 ACUTE LYMPHADENITIS 02/12/2016 VIOLA AGARWAL MD Ot I49.9 CARDIAC ARRHYTHMIA, UNSPECIFIED 02/12/2016 VIOLA AGARWAL MD Ot R07.9 CHEST PAIN, UNSPECIFIED 04/23/2016 VIOLA AGARWAL MD, Ot I49.9 CARDIAC ARRHYTHMIA, UNSPECIFIED 04/23/2016 ANY MEJIA, VIOLA Argueta Ot R07.9 CHEST PAIN, UNSPECIFIED 04/26/2016 JOHANNY KINNEY MD Ot M54.2 CERVICALGIA 05/24/2016 JOHANNY KINNEY MD [...] DUBOSE MD Ot R53.83 OTHER FATIGUE 08/13/2016 GILDA ZEPEDA, ROBIN K Ot E78.2 MIXED HYPERLIPIDEMIA 08/13/2016 GILDA ZEPEDA, ROBIN K Ot I10 ESSENTIAL (PRIMARY) HYPERTENSION 08/13/2016 CHINO HOLLINSDITH K Ot R00.2 PALPITATIONS 08/13/2016 GILDA ZEPEDA, ROBIN K Ot E78.2 MIXED HYPERLIPIDEMIA 08/13/2016 GILDA ZEPEDA, ROBIN K Ot I10 ESSENTIAL (PRIMARY) HYPERTENSION 08/13/2016 CHINO HOLLINSDITH K Ot R00.2 PALPITATIONS 08/28/2016 GILDA ZEPEDA, ROBIN K Ot E78.2 MIXED HYPERLIPIDEMIA 08/28/2016 GILDA [...] NOS TYPE VESSEL, NATIV 02/21/2017 Ot V58.69 OT MED,LT, CURRENT USE 02/21/2017 Ot V58.83 ENCOUNTER [...] CHEST PAIN, UNSPECIFIED 12/22/2017 DEL DUBOSE MD Ot E04.1 NONTOXIC SINGLE THYROID NODULE 12/22/2017 DEL DUBOSE MD Ot R22.1 LOCALIZED SWELLING, MASS AND LUMP, NECK 12/22/2017 DEL DUBOSE MD Ot R53.83 OTHER FATIGUE 12/22/2017 ROBIN HOLLINS Ot E78.2 MIXED HYPERLIPIDEMIA 12/22/2017 ROBIN HLOLINS Ot I10 ESSENTIAL (PRIMARY) HYPERTENSION 12/22/2017 ROBIN [...] HOLLINS Ot R00.2 PALPITATIONS 04/28/2018 VIOLA AGARWAL MD Ot I10 ESSENTIAL (PRIMARY) HYPERTENSION 04/28/2018 VIOLA [...] DO Ot I10 ESSENTIAL (PRIMARY) HYPERTENSION 04/30/2018 EUEFMIA RAMOS DO Ot J44.9 CHRONIC OBSTRUCTIVE PULMONARY DISEASE, U 04/30/2018 EUFEMIA RAMOS DO D Ot K21.9 GASTRO-ESOPHAGEAL REFLUX DISEASE WITHOUT 04/30/2018 RAMOSEUFEMIA KENNEY DO D Ot K29.70 GASTRITIS, UNSPECIFIED, WITHOUT BLEEDING 04/30/2018 RAMOS GLEN PLASCENCIATT D Ot K31.89 OTHER DISEASES OF STOMACH AND DUODENUM 04/30/2018 EUFEMIA RAMOS DO Ot K44.9 DIAPHRAGMATIC HERNIA WITHOUT OBSTRUCTION 05/05/2018 RAMOS EUFEMIA PLASCENCIA Ot F17.210 NICOTINE DEPENDENCE, CIGARETTES, UNCOMPL 05/05/2018 EUFEMIA RAMOS DO D Ot G47.33 OBSTRUCTIVE SLEEP APNEA (ADULT) (PEDIATR 05/05/2018 EUFEMIA RAMOS DO Ot I10 ESSENTIAL (PRIMARY) HYPERTENSION 05/05/2018 EUFEMIA RAMOS DO Ot J44.9 CHRONIC OBSTRUCTIVE PULMONARY DISEASE, U 05/05/2018 EUFEMIA RAMOS DO Ot K21.9 GASTRO-ESOPHAGEAL REFLUX DISEASE WITHOUT 05/05/2018 EUFEMIA RAMOS DO Ot K29.70 GASTRITIS, UNSPECIFIED, WITHOUT BLEEDING 05/05/2018 RAMOS EUFEMIA PLASCENCIA D Ot K31.89 OTHER DISEASES OF STOMACH AND DUODENUM 05/05/2018 EUFEMIA RAMOS DO Ot K44.9 DIAPHRAGMATIC HERNIA WITHOUT OBSTRUCTION 05/26/2018 [...] OTHER FORMS OF DYSPNEA 07/02/2018 SAMEER HULL APRN Ot Z72.0 TOBACCO USE 07/07/2018 SAMEER HULL PARQUETRY LAYER Ot G47.33 OBSTRUCTIVE SLEEP APNEA (ADULT) (PEDIATR 07/07/2018 TONY HULLINE E PARQUETRY LAYER Ot K20.9 ESOPHAGITIS, UNSPECIFIED 07/07/2018 TONY HULLINE E PARQUETRY LAYER Ot K21.9 GASTRO-ESOPHAGEAL REFLUX DISEASE WITHOUT 07/07/2018 TONY HULLINE E PARQUETRY LAYER Ot R00.2 PALPITATIONS 07/07/2018 TONY UHLLINE E PARQUETRY LAYER Ot R06.09 OTHER FORMS OF DYSPNEA 07/07/2018 KURTISTONY BURROUGHSINE Jj PARQUETRY LAYER Ot Z72.0 TOBACCO USE 07/28/2018 TONY HULLINE Jj PARQUETRY LAYER Ot K21.9 GASTRO-ESOPHAGEAL REFLUX DISEASE WITHOUT 07/28/2018 KURTISTONY BURROUGHSINE E PARQUETRY LAYER Ot R00.2 PALPITATIONS 07/28/2018 SAMEER HULL PARQUETRY LAYER Ot R06.09 OTHER FORMS OF DYSPNEA 07/28/2018 SAMEER HULL PARQUETRY LAYER Ot R09.02 HYPOXEMIA 07/28/2018 SAMEER HULL PARQUETRY LAYER Ot R94.2 ABNORMAL RESULTS OF PULMONARY FUNCTION S 07/28/2018 SAMEER HULL PARQUETRY LAYER Ot Z72.0 TOBACCO USE 08/05/2018 EUFEMIA RAMOS DO Ot K76.0 FATTY (CHANGE OF) LIVER, NOT ELSEWHERE C 08/05/2018 Ot R10.13 EPIGASTRIC PAIN 08/05/2018 SAMEER HULL PARQUETRY LAYER Ot K21.9 GASTRO-ESOPHAGEAL REFLUX DISEASE WITHOUT 08/05/2018 SAMEER HULL PARQUETRY LAYER Ot R00.2 PALPITATIONS 08/05/2018 SAMEER HULL PARQUETRY LAYER Ot R06.09 OTHER FORMS OF DYSPNEA 08/05/2018 SAMEER HULL PARQUETRY LAYER Ot R09.02 HYPOXEMIA 08/05/2018 TONY HULLINE Jj PARQUETRY LAYER Ot R94.2 ABNORMAL RESULTS OF PULMONARY FUNCTION S 08/05/2018 SAMEER HULL PARQUETRY LAYER Ot Z72.0 TOBACCO USE 08/06/2018 REX BERMAN DO Ot Z01.818 ENCOUNTER FOR OTHER PREPROCEDURAL EXAMIN 08/07/2018 VIOLA AGARWAL MD Ot I49.9 CARDIAC ARRHYTHMIA, UNSPECIFIED 08/07/2018 VIOLA AGARWAL MD Ot R07.9 CHEST PAIN, UNSPECIFIED 08/07/2018 SEDRICK MEJIA, DEL Abrams Ot E04.1 NONTOXIC SINGLE THYROID NODULE 08/07/2018 SEDRICK MEJIA, DEL Abrams Ot R22.1 LOCALIZED SWELLING, MASS AND LUMP, NECK 08/07/2018 SEDRICK MEJIA, DEL Abrams Ot R53.83 OTHER FATIGUE 08/07/2018 ROBIN HOLLINS [...] MAMMOGRAM FOR MALIGNANT NE 08/07/2018 SAMEER HULL APRN Ot G47.33 OBSTRUCTIVE SLEEP APNEA (ADULT) (PEDIATR 08/07/2018 SAMEER HULL PARQUETRY LAYER Ot K20.9 ESOPHAGITIS, UNSPECIFIED 08/07/2018 SAMEER HULL PARQUETRY LAYER Ot K21.9 GASTRO-ESOPHAGEAL REFLUX DISEASE WITHOUT 08/07/2018 SAMEER HULL PARQUETRY LAYER Ot R00.2 PALPITATIONS 08/07/2018 SAMEER HULL APRN Ot R06.09 OTHER FORMS OF DYSPNEA 08/07/2018 SAMEER HULL PARQUETRY LAYER Ot Z72.0 TOBACCO USE 08/07/2018 SAMEER HULL PARQUETRY LAYER Ot G47.33 OBSTRUCTIVE SLEEP APNEA (ADULT) (PEDIATR 08/07/2018 SAMEER HULL PARQUETRY LAYER Ot K21.0 GASTRO-ESOPHAGEAL REFLUX DISEASE WITH ES 08/07/2018 SAMEER HULL PARQUETRY LAYER Ot R00.2 PALPITATIONS 08/07/2018 SAMEER HULL PARQUETRY LAYER Ot R06.09 OTHER FORMS OF DYSPNEA 08/07/2018 SAMEER HULL PARQUETRY LAYER Ot Z72.0 TOBACCO USE 08/07/2018 SAMEER HULL PARQUETRY LAYER Ot K21.9 GASTRO-ESOPHAGEAL REFLUX DISEASE WITHOUT 08/07/2018 SAMEER HULL PARQUETRY LAYER Ot R00.2 PALPITATIONS 08/07/2018 SAMEER HULL PARQUETRY LAYER Ot R06.09 OTHER FORMS OF DYSPNEA 08/07/2018 SAMEER HULL APRN Ot R09.02 HYPOXEMIA 08/07/2018 SAMEER HULL APRN Ot R94.2 ABNORMAL RESULTS OF PULMONARY FUNCTION S 08/07/2018 SAMEER HULL APRN Ot Z72.0 TOBACCO USE 08/07/2018 VIOLA AGARWAL MD Ot I49.9 CARDIAC ARRHYTHMIA, UNSPECIFIED 08/07/2018 VIOLA AGARWAL MD, Ot R07.9 CHEST PAIN, UNSPECIFIED 08/07/2018 SEDRICK MEJIA, DEL Abrams Ot E04.1 NONTOXIC SINGLE THYROID NODULE 08/07/2018 DEL DUBOSE MD Ot R22.1 LOCALIZED SWELLING, MASS AND LUMP, NECK 08/07/2018 DEL UDBOSE MD Ot R53.83 OTHER FATIGUE 08/07/2018 ROBIN [...] Ot R10.13 EPIGASTRIC PAIN 08/07/2018 MELANIE ESCOBAR PARQUETRY LAYER Ot Z12.31 ENCNTR SCREEN MAMMOGRAM FOR MALIGNANT NE 08/07/2018 TONY HULLINE Jj PARQUETRY LAYER Ot G47.33 OBSTRUCTIVE SLEEP APNEA (ADULT) (PEDIATR 08/07/2018 TONY HULLINE jJ PARQUETRY LAYER Ot K20.9 ESOPHAGITIS, UNSPECIFIED 08/07/2018 TONY HULLINE E PARQUETRY LAYER Ot K21.9 GASTRO-ESOPHAGEAL REFLUX DISEASE WITHOUT 08/07/2018 KURTIS, SAMEER E PARQUETRY LAYER Ot R00.2 PALPITATIONS 08/07/2018 TONY HULLINE E PARQUETRY LAYER Ot R06.09 OTHER FORMS OF DYSPNEA 08/07/2018 TONY HULLINE E PARQUETRY LAYER Ot Z72.0 TOBACCO USE 08/07/2018 TONY HULLINE E PARQUETRY LAYER Ot G47.33 OBSTRUCTIVE SLEEP APNEA (ADULT) (PEDIATR 08/07/2018 TONY HULLINE E PARQUETRY LAYER Ot K21.0 GASTRO-ESOPHAGEAL REFLUX DISEASE WITH ES 08/07/2018 TONY HULLINE E PARQUETRY LAYER Ot R00.2 PALPITATIONS 08/07/2018 TONY HULLINE E PARQUETRY LAYER Ot R06.09 OTHER FORMS OF DYSPNEA 08/07/2018 TONY HULLINE Jj PARQUETRY LAYER Ot Z72.0 TOBACCO USE 08/07/2018 TONY HULLINE Jj PARQUETRY LAYER Ot K21.9 GASTRO-ESOPHAGEAL REFLUX DISEASE WITHOUT 08/07/2018 TONY HULLINE E PARQUETRY LAYER Ot R00.2 PALPITATIONS 08/07/2018 TONY HULLINE E PARQUETRY LAYER Ot R06.09 OTHER FORMS OF DYSPNEA 08/07/2018 TONY HULLINE Jj PARQUETRY LAYER Ot R09.02 HYPOXEMIA 08/07/2018 TONY HULLINE Jj PARQUETRY LAYER Ot R94.2 ABNORMAL RESULTS OF PULMONARY FUNCTION S 08/07/2018 SAMEER HULL PARQUETRY LAYER Ot Z72.0 TOBACCO USE 08/07/2018 REX EBRMAN DO Ot Z01.818 ENCOUNTER FOR OTHER PREPROCEDURAL EXAMIN 08/12/2018 REX BERMAN DO Ot F17.210 NICOTINE DEPENDENCE, CIGARETTES, UNCOMPL 08/12/2018 REX BERMAN DO Ot G47.33 OBSTRUCTIVE SLEEP APNEA (ADULT) (PEDIATR 08/12/2018 REX BERMAN DO Ot G62.9 POLYNEUROPATHY, UNSPECIFIED 08/12/2018 CULLEN DO REX Ballesteros Ot I10 ESSENTIAL (PRIMARY) HYPERTENSION 08/12/2018 CULLEN DO REX Ballesteros Ot J44.9 CHRONIC OBSTRUCTIVE PULMONARY DISEASE, U 08/12/2018 REX BERMAN DO Ot K21.9 GASTRO-ESOPHAGEAL REFLUX DISEASE WITHOUT 08/12/2018 CULLEN REX Ballesteros Ot R59.0 LOCALIZED ENLARGED LYMPH NODES 08/12/2018 CULLEN PLASCENCIA REX Ballesteros Ot Z79.899 OTHER TOOLING INSPECTOR (CURRENT) DRUG THERAPY 08/19/2018 BERNAZUCENA GODINEZIS Ot F32.9 MAJOR DEPRESSIVE DISORDER, SINGLE EPISOD 08/19/2018 BERNAZUCENA GODINEZIS Ot F41.9 ANXIETY DISORDER, UNSPECIFIED 08/19/2018 BERNAZUCENA GODINEZIS Ot G47.30 SLEEP APNEA, UNSPECIFIED 08/19/2018 BERNAZUCENA GODINEZIS Ot I10 ESSENTIAL (PRIMARY) HYPERTENSION 08/19/2018 NORMA PEREZ Ot J44.9 CHRONIC OBSTRUCTIVE PULMONARY DISEASE, U 08/19/2018 AZUCENA PEREZIS Ot K21.9 GASTRO-ESOPHAGEAL REFLUX DISEASE WITHOUT 08/19/2018 BERNAZUCENA GODINEZIS Ot M79.662 PAIN IN LEFT LOWER LEG 08/19/2018 BERNAZUCENA GODINEZIS Ot M79.89 OTHER SPECIFIED SOFT TISSUE DISORDERS 08/19/2018 BERNAZUCENA GODINEZIS Ot Z79.51 TOOLING INSPECTOR (CURRENT) USE OF INHALED STERO 08/19/2018 AZUCENA PEREZIS Ot Z82.49 FAMILY HX OF ISCHEM HEART DIS AND OTH DI 08/19/2018 AZUCENA PEREZIS Ot Z87.19 PERSONAL HISTORY OF OTHER DISEASES OF TH 08/19/2018 AZUCENA PEREZIS Ot Z90.49 ACQUIRED ABSENCE OF OTHER SPECIFIED PART 08/19/2018 BERNAZUCENA GODINEZIS Ot Z90.710 ACQUIRED ABSENCE OF BOTH CERVIX AND UTER 08/20/2018 SAMEER HULL PARQUETRY LAYER Ot K21.9 GASTRO-ESOPHAGEAL REFLUX DISEASE WITHOUT 08/20/2018 SAMEER HULL E PARQUETRY LAYER Ot R00.2 PALPITATIONS 08/20/2018 SAMEER HULL PARQUETRY LAYER Ot R06.09 OTHER FORMS OF DYSPNEA 08/20/2018 SAMEER HULL PARQUETRY LAYER Ot R09.02 HYPOXEMIA 08/20/2018 SAMEER HULL APRN Ot R94.2 ABNORMAL RESULTS OF PULMONARY FUNCTION S 08/20/2018 SAMEER HULL APRN Ot Z72.0 TOBACCO USE 08/21/2018 REX BERMAN DO Ot F17.210 NICOTINE DEPENDENCE, CIGARETTES, UNCOMPL 08/21/2018 REX BERMAN DO Ot G47.33 OBSTRUCTIVE SLEEP APNEA (ADULT) (PEDIATR 08/21/2018 REX BERMAN DO Ot G62.9 POLYNEUROPATHY, UNSPECIFIED 08/21/2018 REX BERMAN DO Ot I10 ESSENTIAL (PRIMARY) HYPERTENSION 08/21/2018 REX BERMAN DO Ot J44.9 CHRONIC OBSTRUCTIVE PULMONARY DISEASE, U 08/21/2018 REX BERMAN DO Ot K21.9 GASTRO-ESOPHAGEAL REFLUX DISEASE WITHOUT 08/21/2018 REX BERMAN DO Ot R59.0 LOCALIZED ENLARGED LYMPH NODES 08/21/2018 REX BERMAN DO Ot Z79.899 OTHER USP (CURRENT) DRUG THERAPY 08/25/2018 NORMA PEREZ Ot F32.9 MAJOR DEPRESSIVE DISORDER, SINGLE EPISOD 08/25/2018 NORMA PEREZ Ot F41.9 ANXIETY DISORDER, UNSPECIFIED 08/25/2018 NORMA PEREZ Ot G47.30 SLEEP APNEA, UNSPECIFIED 08/25/2018 NORMA PEREZ Ot I10 ESSENTIAL (PRIMARY) HYPERTENSION 08/25/2018 NORMA PEREZ Ot J44.9 CHRONIC OBSTRUCTIVE PULMONARY DISEASE, U 08/25/2018 NORMA PEREZ Ot K21.9 GASTRO-ESOPHAGEAL REFLUX DISEASE WITHOUT 08/25/2018 NORMA PEREZ Ot M79.662 PAIN IN LEFT LOWER LEG 08/25/2018 AZUCENA PEREZIS Ot M79.89 OTHER SPECIFIED SOFT TISSUE DISORDERS 08/25/2018 NORMA PEREZ Ot Z79.51 TOOLING INSPECTOR (CURRENT) USE OF INHALED STERO 08/25/2018 NORMA PEREZ Ot Z82.49 FAMILY HX OF ISCHEM HEART DIS AND OTH DI 08/25/2018 NORMA PEREZ Ot Z87.19 PERSONAL HISTORY OF OTHER DISEASES OF TH 08/25/2018 NORMA PEREZ Ot Z90.49 ACQUIRED ABSENCE OF OTHER SPECIFIED PART 08/25/2018 NORMA PEREZ Ot Z90.710 ACQUIRED ABSENCE OF BOTH CERVIX AND UTER 10/05/2018 VIOLA AGARWAL MD Ot I49.9 CARDIAC ARRHYTHMIA, UNSPECIFIED 10/05/2018 VIOLA AGARWAL MD Ot R07.9 CHEST PAIN, UNSPECIFIED 10/05/2018 DEL DUBOSE MD Ot E04.1 NONTOXIC SINGLE THYROID NODULE 10/05/2018 DEL DUBOSE MD Ot R22.1 LOCALIZED SWELLING, MASS AND LUMP, NECK 10/05/2018 DEL DUBOSE MD Ot R53.83 OTHER FATIGUE 10/05/2018 ROBIN HOLLINS Ot E78.2 MIXED HYPERLIPIDEMIA 10/05/2018 ROBIN HOLLINS Ot I10 ESSENTIAL (PRIMARY) HYPERTENSION 10/05/2018 ROBIN HOLLINS Ot R00.2 PALPITATIONS 10/05/2018 VIOLA AGARWAL MD, Ot I10 ESSENTIAL (PRIMARY) HYPERTENSION 10/05/2018 VIOLA AGARWAL MD Ot I34.0 NONRHEUMATIC MITRAL (VALVE) INSUFFICIENC 10/05/2018 VIOLA AGARWAL MD Ot R00.2 PALPITATIONS 10/05/2018 VIOLA AGARWAL MD Ot R07.9 CHEST PAIN, UNSPECIFIED 10/05/2018 VIOLA AGARWAL MD Ot Z72.0 TOBACCO USE 10/05/2018 EUFEMIA RAMOS DO Ot K76.0 FATTY (CHANGE OF) LIVER, NOT ELSEWHERE C 10/05/2018 Ot R10.13 EPIGASTRIC PAIN 10/05/2018 MELANIE ESCOBAR APRN Ot Z12.31 ENCNTR SCREEN MAMMOGRAM FOR MALIGNANT NE 10/05/2018 SAMEER HULL APRN Ot G47.33 OBSTRUCTIVE SLEEP APNEA (ADULT) (PEDIATR 10/05/2018 SAMEER HULL APRN Ot K20.9 ESOPHAGITIS, UNSPECIFIED 10/05/2018 SAMEER HULL APRN Ot K21.9 GASTRO-ESOPHAGEAL REFLUX DISEASE WITHOUT 10/05/2018 SAMEER HULL APRN Ot R00.2 PALPITATIONS 10/05/2018 SAMEER HULL APRN Ot R06.09 OTHER FORMS OF DYSPNEA 10/05/2018 SAMEER HULL APRN Ot Z72.0 TOBACCO USE 10/05/2018 KURTIS, SAMEER E PARQUETRY LAYER Ot G47.33 OBSTRUCTIVE SLEEP APNEA (ADULT) (PEDIATR 10/05/2018 SAMEER HULL PARQUETRY LAYER Ot K21.0 GASTRO-ESOPHAGEAL REFLUX DISEASE WITH ES 10/05/2018 SAMEER HULL PARQUETRY LAYER Ot R00.2 PALPITATIONS 10/05/2018 SAMEER HULL PARQUETRY LAYER Ot R06.09 OTHER FORMS OF DYSPNEA 10/05/2018 SAMEER HULL PARQUETRY LAYER Ot Z72.0 TOBACCO USE 10/05/2018 SAMEER HULL PARQUETRY LAYER Ot K21.9 GASTRO-ESOPHAGEAL REFLUX DISEASE WITHOUT 10/05/2018 SAMEER HULL PARQUETRY LAYER Ot R00.2 PALPITATIONS 10/05/2018 SAMEER HULL PARQUETRY LAYER Ot R06.09 OTHER FORMS OF DYSPNEA 10/05/2018 SAMEER HULL PARQUETRY LAYER Ot R09.02 HYPOXEMIA 10/05/2018 SAMEER HULL PARQUETRY LAYER Ot R94.2 ABNORMAL RESULTS OF PULMONARY FUNCTION S 10/05/2018 SAMEER HULL PARQUETRY LAYER Ot Z72.0 TOBACCO USE 10/05/2018 SAMEER HULL PARQUETRY LAYER Ot R06.09 OTHER FORMS OF DYSPNEA 10/05/2018 SAMEER HULL PARQUETRY LAYER Ot R94.2 ABNORMAL RESULTS OF PULMONARY FUNCTION S 10/05/2018 SAMEER HULL PARQUETRY LAYER Ot Z72.0 TOBACCO USE 10/30/2018 SAMEER HULL PARQUETRY LAYER Ot J44.9 CHRONIC OBSTRUCTIVE PULMONARY DISEASE, U 10/30/2018 SAMEER HULL PARQUETRY LAYER Ot K44.9 DIAPHRAGMATIC HERNIA WITHOUT OBSTRUCTION 10/30/2018 SAMEER HULL PARQUETRY LAYER Ot K76.0 FATTY (CHANGE OF) LIVER, NOT ELSEWHERE C 10/30/2018 SAMEER HULL PARQUETRY LAYER Ot R59.0 LOCALIZED ENLARGED LYMPH NODES 10/30/2018 SAMEER HULL PARQUETRY LAYER Ot R91.8 OTHER NONSPECIFIC ABNORMAL FINDING OF BREE 10/30/2018 SAMEER HULL PARQUETRY LAYER Ot Z72.0 TOBACCO USE 11/03/2018 ANY MEJIA, VIOLA Argueta Ot I49.9 CARDIAC ARRHYTHMIA, UNSPECIFIED 11/03/2018 ANY MEJIA, VIOLA Argueta Ot R07.9 CHEST PAIN, UNSPECIFIED 11/03/2018 SEDRICK MEJIA, DEL Abrams Ot E04.1 NONTOXIC SINGLE THYROID NODULE 11/03/2018 DEL DUBOSE MD Ot R22.1 LOCALIZED SWELLING, MASS AND LUMP, NECK 11/03/2018 DEL DUBOSE MD Ot R53.83 OTHER FATIGUE 11/03/2018 ROBIN HOLLINS Ot E78.2 MIXED HYPERLIPIDEMIA 11/03/2018 ROBIN HOLLINS Ot I10 ESSENTIAL (PRIMARY) HYPERTENSION 11/03/2018 ROBIN HOLLINS Ot R00.2 PALPITATIONS 11/03/2018 VIOLA AGARWAL MD Ot I10 ESSENTIAL (PRIMARY) HYPERTENSION 11/03/2018 VIOLA AGARWAL MD Ot I34.0 NONRHEUMATIC MITRAL (VALVE) INSUFFICIENC 11/03/2018 VIOLA AGARWAL MD Ot R00.2 PALPITATIONS 11/03/2018 VIOLA AGARWAL MD Ot R07.9 CHEST PAIN, UNSPECIFIED 11/03/2018 VIOLA AGARWAL MD Ot Z72.0 TOBACCO USE 11/03/2018 EUFEMIA RAMOS DO Ot K76.0 FATTY (CHANGE OF) LIVER, NOT ELSEWHERE C 11/03/2018 Ot R10.13 EPIGASTRIC PAIN 11/03/2018 MELANIE ESCOBAR APRN Ot Z12.31 ENCNTR SCREEN MAMMOGRAM FOR MALIGNANT NE 11/03/2018 SAMEER HULL APRN Ot G47.33 OBSTRUCTIVE SLEEP APNEA (ADULT) (PEDIATR 11/03/2018 SAMEER HULL PARQUETRY LAYER Ot K20.9 ESOPHAGITIS, UNSPECIFIED 11/03/2018 SAMEER HULL PARQUETRY LAYER Ot K21.9 GASTRO-ESOPHAGEAL REFLUX DISEASE WITHOUT 11/03/2018 SAMEER HULL PARQUETRY LAYER Ot R00.2 PALPITATIONS 11/03/2018 SAMEER HULL PARQUETRY LAYER Ot R06.09 OTHER FORMS OF DYSPNEA 11/03/2018 SAMEER HULL APRN Ot Z72.0 TOBACCO USE 11/03/2018 SAMEER HULL APRN Ot G47.33 OBSTRUCTIVE SLEEP APNEA (ADULT) (PEDIATR 11/03/2018 SAMEER HULL APRN Ot K21.0 GASTRO-ESOPHAGEAL REFLUX DISEASE WITH ES 11/03/2018 SAMEER HULL PARQUETRY LAYER Ot R00.2 PALPITATIONS 11/03/2018 KURTIS, SAMEER E PARQUETRY LAYER Ot R06.09 OTHER FORMS OF DYSPNEA 11/03/2018 SAMEER HULL PARQUETRY LAYER Ot Z72.0 TOBACCO USE 11/03/2018 SAMEER HULL PARQUETRY LAYER Ot K21.9 GASTRO-ESOPHAGEAL REFLUX DISEASE WITHOUT 11/03/2018 SAMEER HULL PARQUETRY LAYER Ot R00.2 PALPITATIONS 11/03/2018 SAMEER HULL PARQUETRY LAYER Ot R06.09 OTHER FORMS OF DYSPNEA 11/03/2018 SAMEER HULL PARQUETRY LAYER Ot R09.02 HYPOXEMIA 11/03/2018 SAMEER HULL PARQUETRY LAYER Ot R94.2 ABNORMAL RESULTS OF PULMONARY FUNCTION S 11/03/2018 SAMEER HULL PARQUETRY LAYER Ot Z72.0 TOBACCO USE 11/03/2018 SAMEER HULL PARQUETRY LAYER Ot R06.09 OTHER FORMS OF DYSPNEA 11/03/2018 SAMEER HULL PARQUETRY LAYER Ot R94.2 ABNORMAL RESULTS OF PULMONARY FUNCTION S 11/03/2018 SAMEER HULL PARQUETRY LAYER Ot Z72.0 TOBACCO USE 11/04/2018 SAMEER HULL PARQUETRY LAYER Ot J44.9 CHRONIC OBSTRUCTIVE PULMONARY DISEASE, U 11/04/2018 SAMEER HULL PARQUETRY LAYER Ot K44.9 DIAPHRAGMATIC HERNIA WITHOUT OBSTRUCTION 11/04/2018 SAMEER HULL PARQUETRY LAYER Ot K76.0 FATTY (CHANGE OF) LIVER, NOT ELSEWHERE C 11/04/2018 SAMEER HULL PARQUETRY LAYER Ot R59.0 LOCALIZED ENLARGED LYMPH NODES 11/04/2018 SAMEER HULL PARQUETRY LAYER Ot R91.8 OTHER NONSPECIFIC ABNORMAL FINDING OF BREE 11/04/2018 SAMEER HULL PARQUETRY LAYER Ot Z72.0 TOBACCO USE 11/08/2018 SAMEER HULL PARQUETRY LAYER Ot R06.09 OTHER FORMS OF DYSPNEA 11/08/2018 SAMEER HULL PARQUETRY LAYER Ot R94.2 ABNORMAL RESULTS OF PULMONARY FUNCTION S 11/08/2018 SAMEER HULL PARQUETRY LAYER Ot Z72.0 TOBACCO USE 11/09/2018 SAMEER HULL PARQUETRY LAYER Ot R06.09 OTHER FORMS OF DYSPNEA 11/09/2018 SAMEER HULL PARQUETRY LAYER Ot R94.2 ABNORMAL RESULTS OF PULMONARY FUNCTION S 11/09/2018 SAMEER HULL PARQUETRY LAYER Ot Z72.0 TOBACCO USE 01/13/2019 VIOLA AGARWAL MD Ot I49.9 CARDIAC ARRHYTHMIA, UNSPECIFIED 01/13/2019 VIOLA AGARWAL MD Ot R07.9 CHEST PAIN, UNSPECIFIED 01/13/2019 DEL DUBOSE MD Ot E04.1 NONTOXIC SINGLE THYROID NODULE 01/13/2019 DEL DUBOSE MD Ot R22.1 LOCALIZED SWELLING, MASS AND LUMP, NECK 01/13/2019 DEL DUBOSE MD Ot R53.83 OTHER FATIGUE 01/13/2019 ROBIN HOLLINS Ot E78.2 MIXED HYPERLIPIDEMIA 01/13/2019 ROBIN HOLLINS Ot I10 ESSENTIAL (PRIMARY) HYPERTENSION 01/13/2019 ROBIN HOLLINS Ot R00.2 PALPITATIONS 01/13/2019 VIOLA AGARWAL MD, Ot I10 ESSENTIAL (PRIMARY) HYPERTENSION 01/13/2019 VIOLA AGARWAL MD Ot I34.0 NONRHEUMATIC MITRAL (VALVE) INSUFFICIENC 01/13/2019 VIOLA AGARWAL MD Ot R00.2 PALPITATIONS 01/13/2019 VIOLA AGARWAL MD Ot R07.9 CHEST PAIN, UNSPECIFIED 01/13/2019 VIOLA AGARWAL MD Ot Z72.0 TOBACCO USE 01/13/2019 EUFEMIA RAMOS DO Ot K76.0 FATTY (CHANGE OF) LIVER, NOT ELSEWHERE C 01/13/2019 Ot R10.13 EPIGASTRIC PAIN 01/13/2019 MELANIE ESCOBAR APRN Ot Z12.31 ENCNTR SCREEN MAMMOGRAM FOR MALIGNANT NE 01/13/2019 SAMEER HULL APRN Ot G47.33 OBSTRUCTIVE SLEEP APNEA (ADULT) (PEDIATR 01/13/2019 SAMEER HULL APRN Ot K20.9 ESOPHAGITIS, UNSPECIFIED 01/13/2019 SAMEER HULL APRN Ot K21.9 GASTRO-ESOPHAGEAL REFLUX DISEASE WITHOUT 01/13/2019 SAMEER HULL APRN Ot R00.2 PALPITATIONS 01/13/2019 SAMEER HULL APRN Ot R06.09 OTHER FORMS OF DYSPNEA 01/13/2019 SAMEER HULL APRN Ot Z72.0 TOBACCO USE 01/13/2019 SAMEER HULL APRN Ot G47.33 OBSTRUCTIVE SLEEP APNEA (ADULT) (PEDIATR 01/13/2019 SAMEER HULL PARQUETRY LAYER Ot K21.0 GASTRO-ESOPHAGEAL REFLUX DISEASE WITH ES 01/13/2019 SAMEER HULL PARQUETRY LAYER Ot R00.2 PALPITATIONS 01/13/2019 SAMEER HULL PARQUETRY LAYER Ot R06.09 OTHER FORMS OF DYSPNEA 01/13/2019 SAMEER HULL PARQUETRY LAYER Ot Z72.0 TOBACCO USE 01/13/2019 SAMEER HULL PARQUETRY LAYER Ot K21.9 GASTRO-ESOPHAGEAL REFLUX DISEASE WITHOUT 01/13/2019 SAMEER HULL PARQUETRY LAYER Ot R00.2 PALPITATIONS 01/13/2019 SAMEER HULL PARQUETRY LAYER Ot R06.09 OTHER FORMS OF DYSPNEA 01/13/2019 SAMEER HULL PARQUETRY LAYER Ot R09.02 HYPOXEMIA 01/13/2019 SAMEER HULL PARQUETRY LAYER Ot R94.2 ABNORMAL RESULTS OF PULMONARY FUNCTION S 01/13/2019 SAMEER HULL PARQUETRY LAYER Ot Z72.0 TOBACCO USE Procedures Code Description [place] [address] ROUTINE VENIPUNCTURE 11/12/2012 50780 LIPID PANEL 11/12/2012 21929 VITAMIN D 25-HYDROXY (D2,D3 , TOTAL) 11/12/2012 76117 ROUTINE VENIPUNCTURE 12/10/2012 62617 CMP 12/10/2012 [id number] GFR CALC (RESULT ONLY) 12/10/2012 34886 CBC 12/10/2012 46010 TSH 12/10/2012 93536 ROUTINE VENIPUNCTURE 08/30/2013 94072 CBC 08/30/2013 [id number] GFR CALC (RESULT ONLY) 08/30/2013 79897 CMP 08/30/2013 33733 A1C (IN-HOUSE) 09/29/2013 Results Test Result Range [...] platelet mean volume measurement 9.2 [foz_us] 7.4-10.4 [id number] - 06/14/16 10:34 Serum or plasma urea [...] Staphylococcus aureus (MRSA) screening culture NEG NRG PDM - 09 PANEL (PROFILE 1) - [...] FUNGUS SPUTUM FLUID TISSUE - 08/12/18 07:50 FUNGUS REPORT NO FUNGUS GROWTH OBSERVED NRG Sputum Gram stain - 08/12/18 07:51 Sputum Gram stain No bacteria seen NRG Bacteria identification in bronchial specimen by aerobe culture - 08/12/18 07: 51 Bacteria identification in bronchial specimen by aerobe culture NG NRG C FUNGUS SPUTUM FLUID TISSUE - 08/12/18 07:51 FUNGUS REPORT NO FUNGUS GROWTH OBSERVED NRG C FUNGUS SPUTUM FLUID TISSUE - 08/12/18 07:52 FUNGUS REPORT NO FUNGUS GROWTH OBSERVED NRG Mycobacterium species detection by organism specific [...] fluid by manual count 82 % NRG Complete blood count (CBC) with automated white blood cell (WBC) differential - 08/19/18 11:35 Blood leukocytes automated count (number/volume) 7.4 10*3/uL 4.3-11.0 Blood erythrocytes automated count (number/volume) 4.73 10*6/uL 4.35-5.85 Venous blood hemoglobin measurement (mass/volume) 14.8 g/dL 11.5-16.0 Blood hematocrit (volume fraction) 44 % 35-52 Automated erythrocyte mean corpuscular volume 93 [foz_us] 80-99 Automated erythrocyte mean corpuscular hemoglobin (mass per erythrocyte) 31 pg 25-34 Automated erythrocyte mean corpuscular hemoglobin concentration measurement ( mass/volume) 34 g/dL 32-36 Automated erythrocyte distribution width ratio 12.9 % 10.0-14.5 Automated blood platelet count (count/volume) 231 10*3/uL 130-400 Automated blood platelet mean volume measurement 9.5 [foz_us] 7.4-10.4 Automated blood neutrophils/100 leukocytes 57 % 42-75 Automated blood lymphocytes/100 leukocytes 33 % 12-44 Blood monocytes/100 leukocytes 8 % 0-12 Automated blood eosinophils/100 leukocytes 1 % 0-10 Automated blood basophils/100 leukocytes 0 % 0-10 Blood neutrophils automated count (number/volume) 4.3 10*3 1.8-7.8 Blood lymphocytes automated count (number/volume) 2.4 10*3 1.0-4.0 Blood monocytes automated count (number/volume) 0.6 10*3 0.0-1.0 Automated eosinophil count 0.1 10*3/uL 0.0-0.3 Automated blood basophil count (count/volume) 0.0 10*3/uL 0.0-0.1 PT panel in platelet poor plasma by coagulation assay - 08/19/18 11:35 Prothrombin time (PT) in platelet poor plasma by coagulation assay 12.7 s 12.2-14.7 INR in platelet poor plasma or blood by coagulation assay 1.0 0.8-1.4 Activated partial thromboplastin time (aPTT) in platelet poor plasma bycoagulation assay - 08/19/18 11:35 Activated partial thromboplastin time (aPTT) in platelet poor plasma bycoagulation assay 32 s 24-35 Fibrin D-dimer FEU measurement in platelet poor plasma (mass/volume) - 11:35 Fibrin D-dimer FEU measurement in platelet poor plasma (mass/volume) 0.47 ug/mL 0.00-0.49 Comprehensive metabolic panel - 08/19/18 11:35 Serum or plasma sodium measurement (moles/volume) 137 mmol/L 135-145 Serum or plasma potassium measurement (moles/volume) 4.3 mmol/L 3.6-5.0 Serum or plasma chloride measurement (moles/volume) 101 mmol/L 98-107 Carbon dioxide 23 mmol/L 21-32 Serum or plasma anion gap determination (moles/volume) 13 mmol/L 5-14 Serum or plasma urea nitrogen measurement (mass/volume) 9 mg/dL 7-18 Serum or plasma creatinine measurement (mass/volume) 0.85 mg/dL 0.60-1.30 Serum or plasma urea nitrogen/creatinine mass ratio 11 NRG Serum or plasma creatinine measurement with calculation of estimated glomerular filtration rate > NRG Serum or plasma glucose measurement (mass/volume) 97 mg/dL 70-105 Serum or plasma calcium measurement (mass/volume) 9.6 mg/dL 8.5-10.1 Serum or plasma total bilirubin measurement (mass/volume) 0.6 mg/dL 0.1-1.0 Serum or plasma alkaline phosphatase measurement (enzymatic activity/volume) 108 U/L 40-136 Serum or plasma aspartate aminotransferase measurement (enzymatic activity/ volume) 29 U/L 5-34 Serum or plasma alanine aminotransferase measurement (enzymatic activity/volume ) 40 U/L 0-55 Serum or plasma protein measurement (mass/volume) 8.1 g/dL 6.4-8.2 Serum or plasma albumin measurement (mass/volume) 4.5 g/dL 3.2-4.5 CALCIUM CORRECTED 9.2 mg/dL 8.5-10.1 Encounters ACCT No. Visit Date/Time Discharge Status Pt. Type Provider Facility Loc./Unit Complaint [id number] 01/14/2019 16:40:00 ACT Out[facility]OR[id number] 05/19/2018 08:20:00 Document Registration [id number] 01/08/2018 10:40:00 Document Registration [id number] 11/09/2018 08:15:00 11/09/2018 23:59:59 CLS Preadmit SAMEER HULL APRN [facility] PULM DYSPNEA ON EXERTION [id number] 08/10/2018 08:17:00 11/08/2018 00:01:00 DIS Outpatient SAMEER HULL APRN [facility] PULM DYSPNEA ON EXERTION [id number] 10/27/2018 16:17:00 10/27/2018 23:59:59 CLS Preadmit REX BERMAN DO [facility] RAD SMOKING HISTORY [id number] 10/13/2018 07:59:00 10/13/2018 23:59:59 CLS Outpatient SAMEER HULL APRN [facility] RAD LYMPH NODES [id number] 08/19/2018 10:33:00 08/19/2018 14:01:00 DIS Emergency BERNOT, NORMA [facility] ER LEFT LEG SWELLING;SOB [id number] 08/12/2018 06:55:00 08/12/2018 10:00:00 DIS Outpatient REX BERMAN DO [facility] ENDO BERE ON CPAP/PALPITATIONS /DYSPNEA ON EXCERTION/GERD [id number] 08/06/2018 05:32:00 08/06/2018 14:49:00 DIS Outpatient REX BERMAN DO [facility] PREOP EBUS [id number] 07/27/2018 09:06:00 07/27/2018 23:59:59 CLS Outpatient SAMEER HULL APRN [facility] RAD DECREASED DIFFUSION CAPACITY OF LUNG [id number] 07/06/2018 12:18:00 07/06/2018 23:59:59 CLS Outpatient SAMEER HULL APRN [facility] RT DYSPNEA ON EXERTION [id number] 06/30/2018 08:14:00 06/30/2018 23:59:59 CLS Outpatient SAMEER HULL PARQUETRY LAYER [facility] RT R06.09,K21.0 [id number] 05/25/2018 09:10:00 05/25/2018 23:59:59 CLS Outpatient SHAWNMELANIE PARQUETRY LAYER [facility] RAD SCREENING [id number] 04/28/2018 10:21:00 04/28/2018 12:35:00 DIS Outpatient EUFEMIA RAMOS DO [facility] ENDO EPIGASTRIC ABD PAIN [id number] 04/06/2018 07:16:00 04/06/2018 23:59:59 CLS Outpatient EUFEMIA RAMOS DO [facility] RAD UPPER GASTRIC PAIN [id number] 11/14/2017 11:26:00 11/14/2017 23:59:59 CLS Outpatient VIOLA AGARWAL MD [facility] CARD R07.89 CHEST PAIN SYNDROME [id number] 05/14/2017 19:20:00 05/15/2017 05:27:00 DIS Outpatient ABIEL SMITH STEEP TENDER [facility] SLEEP OBSTRUCTIVE SLEEP APNEA [id number] 04/11/2017 10:00:00 04/11/2017 10:30:00 DIS Outpatient VIOLA AGARWAL MD [facility] SLEEP BERE,CHOKING [id number] 02/04/2017 09:01:00 02/04/2017 15:15:00 DIS Outpatient EUFEMIA RAMOS DO [facility] ENDO SCREENING/REFLUX [id number] 01/30/2017 05:38:00 01/30/2017 15:33:00 DIS Outpatient EUFEMIA RAMOS DO [facility] PREOP SCREENING/REFLUX [id number] 09/06/2016 09:50:00 09/06/2016 17:35:00 DIS Outpatient DEL DUBOSE MD [facility] SDC NECK MASS [id number] 09/04/2016 11:05:00 09/04/2016 11:45:00 DIS Outpatient DEL DUBOSE MD [facility] PREOP MIDLINE NECK MASS [id number] 08/12/2016 07:16:00 08/12/2016 23:59:59 CLS Outpatient ROBIN HOLLINS [facility] LAB HTN, PALPITATIONS,HLP [id number] 06/14/2016 10:20:00 06/14/2016 23:59:59 CLS Outpatient SEDRICK MEJIA, DEL Abrams [facility] RAD NECK MASS [id number] 05/30/2016 09:13:00 05/30/2016 11:22:00 DIS Outpatient GREGORIA MEJIA, JOHANNY Fry [facility] REHAB CERVICAL DISC DISEASE [id number] 12/29/2015 11:30:00 12/29/2015 23:59:59 CLS Preadmit VIOLA AGARWAL MD [facility] CARD CARDIAC ARRHYTHMIA, CHEST PAIN [id number] 09/29/2015 12:20:00 12/28/2015 00:01:00 DIS Outpatient VIOLA AGARWAL MD [facility] CARD CARDIAC ARRHYTHMIA, CHEST PAIN [id number] 12/27/2015 12:23:00 12/27/2015 14:50:00 DIS Emergency FARHAN WARREN [facility] ER FALL RIGHT FOOT/ANKLE PAIN [id number] 11/25/2015 08:52:00 11/25/2015 10:09:00 DIS Emergency HARRY ALSTON MD [facility] ER ABNORMAL PULSE RATE,SOA [id number] 10/24/2015 11:13:00 10/24/2015 13:29:00 DIS Emergency TRISTAN BOOKER MD [facility] ER CHEST PAIN;SOA;HIGH BLOOD PRESSURE [id number] 04/04/2015 08:55:00 04/04/2015 12:35:00 DIS Emergency MARY CARTAGENA MD [facility] ER ABD/LOWER BACK PAIN UTI SYMPTOMS [id number] 01/17/2019 11:39:00 ACT Emergency NORMA PEREZ [facility] ER BACK PAIN/R LEG PAIN [id number] 04/22/2018 10:00:00 Document Registration [id number] 04/10/2018 09:24:00 Document Registration [id number] 09/28/2015 14:24:00 Inpatient ANY MEJIA, VIOLA [facility] CSD CHEST PAIN BIGEMINY [id number] 10/16/2012 12:48:00 Document Registration [id number] 04/17/2012 09:17:00 Document Registration [id number] 11/19/2011 08:56:00 Document Registration [id number] 09/24/2010 08:08:00 Document Registration [id number] 06/28/2014 10:24:00 06/28/2014 23:59:59 CLS Outpatient JOHANNY KINNEY MD [id number] 03/15/2014 10:06:00 03/15/2014 23:59:59 CLS Outpatient JOHANNY KINNEY MD [id number] 09/29/2013 08:44:00 09/29/2013 23:59:59 CLS Outpatient JOHANNY KINNEY MD [id number] 08/30/2013 09:12:00 08/30/2013 23:59:59 CLS Outpatient JOHANNY KINNEY MD [id number] 01/19/2013 10:19:00 01/19/2013 23:59:59 CLS Outpatient JOHANNY KINNEY MD [id number] 12/10/2012 09:19:00 12/10/2012 23:59:59 CLS Outpatient JOHANNY KINNEY MD [id number] 11/12/2012 08:49:00 11/12/2012 23:59:59 CLS Outpatient JOHANNY KINNEY MD [id number] 10/27/2012 08:53:00 10/27/2012 23:59:59 CLS Outpatient
[2019-01-17] MEDS ORDERED: HYDROcodone/APAP 7.5 MG/325 MG (LORTAB, LORCET PLUS) TABLET PO ONE (13:15)
[2019-01-17] MEDS ORDERED: ACHD5005 PO (14:24)
--- NOTE | 2019-01-17 14:24 | ED Back Pain ---
General Chief Complaint: Back Problems Stated Complaint: BACK PAIN/R LEG PAIN Nursing Triage Note: AMB TO ED C/O BACK PAIN WAS SEEN AT [facility] ON FRIDAY GIVEN PREDISON. TOOK A ULTRAM WITH NO RELIEF. Nursing Sepsis Screen: No Definite Risk Source of Information: Patient Exam Limitations: No Limitations History of Present Illness Date Seen by Provider: January 17, 2019 Time Seen by Provider: 12:14 Allergies and Home Medications Allergies Coded Allergies: No Known Drug Allergies (Verified , 04/28/18) Home Medications Albuterol Sulfate 6.7 Gm Hfa.aer.ad, 2 PUFF INH Q4H PRN for SHORTNESS OF BREATH, (Reported) Atorvastatin Calcium 20 Mg Tablet, 20 MG PO DAILY, (Reported) Budesonide/Formoterol Fumarate 10.2 Gm Hfa.aer.ad, 2 PUFF IH BID, (Reported) Cyclobenzaprine HCl 10 Mg Tablet, 10 MG PO TID PRN for MUSCLE SPASMS, (Reported) Diazepam 5 Mg Tablet, 5 MG PO BID PRN for ANXIETY, (Reported) Fluticasone Propionate 9.9 Ml Clyde.susp, 1 SPRAY NS DAILY, (Reported) 1 SPRAY EACH NARE DAILY Gabapentin 600 Mg Tablet, 600 MG PO BID, (Reported) Metoprolol Succinate 50 Mg Tab.er.24h, 50 MG PO DAILY, (Reported) Vidalia-3S/Dha/Epa/Fish Oil 1 Each Capsule.dr, 1 EACH PO DAILY, (Reported) Pantoprazole Sodium 40 Mg Tablet.dr, 40 MG PO BID, (Reported) Sertraline HCl 50 Mg Tablet, 50 MG PO DAILY, (Reported) Past Fodegje-Cjpwmp-Dsovlc Hx Patient Social History Alcohol Use: Denies Use Recreational Drug Use: No Smoking Status: Current Everyday Smoker Type Used: Cigarettes Recent Foreign Travel: No Contact w/Someone Who Travel: No Recent Infectious Disease Expo: No Recent Hopitalizations: No Immunizations Up To Date Tetanus Booster (TDap): Unknown Date of Influenza Vaccine: Jun 08, 2018 Seasonal Allergies Seasonal Allergies: Yes Past Medical History Surgeries: Yes (NECK MASS, ) Appendectomy, Hysterectomy Respiratory: Yes Sleep Apnea, COPD Currently Using CPAP: Yes Currently Using BIPAP: No Cardiac: Yes Hypertension, Irregular Heartbeat Neurological: No 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 Disorders: No Female 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 Sexually Transmitted Disease: No HIV/AIDS: No Gastrointestinal: Yes Gastroesophageal Reflux, Irritable Bowel Musculoskeletal: Yes Arthritis, Chronic Back Pain Endocrine: No Loss of Vision: Denies Hearing Impairment: Denies, Hard of Hearing Cancer: No (dysplastic uterine tumors status post hysterectomy) Psychosocial: Yes Anxiety, Depression Integumentary: No Blood Disorders: No Adverse Reaction/Blood Tranf: No Family Medical History Heart Disease, Cancer Physical Exam Vital Signs Vital Signs - First Documented 01/17/19 12:00 Temp 98.0 Pulse 108 Resp 18 B/P (MAP) 157/102 (120) Pulse Ox 94 O2 Delivery Room Air Capillary Refill : Less Than 3 Seconds Height, Weight, BMI Height: 5'2.00" Weight: 175lbs. 0.0oz. 79.525826ri; 32.4 BMI Method:Stated Progress/Results/Core Measures Results/Orders My Orders Orders - NORMA PEREZ Ct Lumbar Spine Wo (01/17/19 12:13) Ketorolac Injection (Toradol Injection) (01/17/19 12:15) Cyclobenzaprine Tablet (Flexeril Tablet) (01/17/19 12:15) Hydrocodone/Apap 7.5/325 Tab (Lortab 7. (01/17/19 13:15) Medications Given in ED Current Medications Medications Dose Ordered Sig/Gaetano Route Start Time Stop Time Status Last Admin Dose Admin Acetaminophen/ Hydrocodone Bitart 1 ea ONCE ONCE PO 01/17/19 13:15 01/17/19 13:16 DC 01/17/19 13:18 1 EA Ketorolac Tromethamine 60 mg ONCE ONCE IM 01/17/19 12:15 01/17/19 12:16 DC 01/17/19 12:24 60 MG Vital Signs/I&O 01/17/19 12:00 Temp 98.0 Pulse 108 Resp 18 B/P (MAP) 157/102 (120) Pulse Ox 94 O2 Delivery Room Air Blood Pressure Mean: 120 Departure Impression Primary Impression: Back pain Disposition: 01 HOME, SELF-CARE Condition: Stable/Unchanged Departure-Patient Inst. Decision time for Depature: 14:23 Referrals: JOHANNY KINNEY MD (PCP/Family) Primary Care Physician Patient Instructions: Lumbar Muscle Strain (DC), Low Back Pain (DC) Add. Discharge Instructions: Take medication as directed. Continue your previously prescribed medications for pain. Return back to the emergency room for worsening symptoms or concerns as needed. Call Dr. Estrada's office tomorrow morning to schedule an appointment for follow-up. All discharge instructions reviewed with patient and/or family. Voiced understanding. Scripts Hydrocodone Bit/Acetaminophen (Hydrocodone/Acetaminophen 5/325mg Tablet) 1 Tab Tab 1 EACH PO Q4-6HR PRN for PAIN-MODERATE MDD 10 for 3 Days, #14 TAB Prov: NORMA PEREZ 01/17/19 NORMA PEREZ January 17, 2019 14:24
[2019-01-17 14:36] VITALS: BP 165/100
--- NOTE | 2019-01-17 14:36 | NUR ---
CT NOT DONE DUE TO PATIENT UNABLE TO LIE FLAT
== END 2019-01-17 14:45 | disposition home or self-care (01) ==
LOC: EDUNIT# 11:38 → ER 11:39
DX: M54.9 Dorsalgia, unspecified (principal); J44.9 Chronic obstructive pulmonary disease, unspecified; G47.30 Sleep apnea, unspecified; I10 Essential (primary) hypertension; K21.9 Gastro-esophageal reflux disease without esophagitis; F41.9 Anxiety disorder, unspecified; F32.9 Major depressive disorder, single episode, unspecified; K58.9 Irritable bowel syndrome, unspecified; F17.210 Nicotine dependence, cigarettes, uncomplicated; Z79.51 Long term (current) use of inhaled steroids; Z82.49 Family history of ischemic heart disease and other diseases of the circulatory system; Z90.49 Acquired absence of other specified parts of digestive tract; Z90.710 Acquired absence of both cervix and uterus
CPT/HCPCS: 99283

== ENCOUNTER → 2019-01-29 | Outpatient (CLI) | payer BC ==
[~2019-01-29] MED LIST changes: +ACHD5005 PO
--- NOTE | 2019-01-29 10:43 | Diagnostic Imaging Report ---
PROCEDURE: MRI lumbar spine. TECHNIQUE: Multiplanar, multisequence MRI of the lumbar spine was performed without contrast. INDICATION: Severe low back pain, right leg pain and numbness. COMPARISON: No prior studies are available for comparison. FINDINGS: The study is moderately compromised by patient motion. There is mild left convexity lumbar scoliotic curvature. Lordotic curvature is unremarkable. Vertebral body heights and marrow signal are unremarkable. No acute compression fracture is seen. There is degenerative disc disease with variable disc space narrowing and desiccation. Conus is unremarkable at approximately the L1 level. T12-L1: Central canal is widely patent. Neural foramina are widely patent. L1-2: Central canal and neuroforamina are widely patent. L2-3: Minimal broad-based disc/osteophyte complex is present but central canal remains widely patent. There is some thickening of the ligamentum flavum. Neural foramina are patent. L3-4: Hypertrophic facet changes and ligamentous thickening is seen with broad-based disc/osteophyte complex. This does result in mild central canal narrowing. Neural foramina are patent. L4-5: Hypertrophic facet changes, ligamentous thickening and broad-based disc/osteophyte complex does result in moderate trefoil stenosis of the central canal. There is also significant bilateral lateral recess stenosis. Mild to moderate right neural foraminal narrowing is seen. Left neural foramen is patent. L5-S1: Hypertrophic facet changes and ligamentous thickening are present. There is a prominent wide-based midline disc/osteophyte complex indenting the ventral thecal sac and producing moderate central canal stenosis. This likely impinges upon the S1 nerve root origins bilaterally, greater on the right. Lateral recesses are narrowed. No neural foraminal stenosis is seen. Paraspinous tissues are unremarkable. IMPRESSION: Lumbar spondylosis and scoliosis with multilevel central canal, lateral recess and neural foraminal stenosis described level by level above. No acute compression fracture is detected. Dictated by: Dictated on workstation # [id number]
== END ==
LOC: RAD 08:28
PROVIDERS: ATTEND Internal Medicine
DX: M51.16 Intervertebral disc disorders with radiculopathy, lumbar region (principal); M41.86 Other forms of scoliosis, lumbar region; M48.07 Spinal stenosis, lumbosacral region; M47.817 Spondylosis without myelopathy or radiculopathy, lumbosacral region
CPT/HCPCS: 72148

== ENCOUNTER 2019-03-09 08:30 | Emergency (ER) | payer BC ==
[~2019-03-09] VITALS: Ht 157.5 cm; Wt 79.4 kg
--- NOTE | 2019-03-09 09:38 | Diagnostic Imaging Report ---
PATIENT HISTORY: Pain and swelling at the lateral malleolus of the right ankle. Injury. TECHNIQUE: Three views of the right ankle. COMPARISON: 12/27/2015. FINDINGS: No acute fracture or dislocation is seen in the right ankle. Alignment appears normal. The ankle mortise is symmetric and the talar dome is intact. There is mild lateral soft tissue edema. No significant joint effusion is seen. There are enthesophytes at the calcaneus. IMPRESSION: No acute osseous abnormality is seen in the right ankle. There is mild lateral soft tissue edema. Dictated by: Dictated on workstation # [id number]
--- NOTE | 2019-03-09 09:40 | Diagnostic Imaging Report ---
PATIENT HISTORY: Right foot and ankle pain. Injury. TECHNIQUE: Three views of the right foot. COMPARISON: 12/27/2015. FINDINGS: No acute fracture is seen in the right foot. Alignment appears normal. There are minimal degenerative changes at the great toe metatarsophalangeal joint. No joint effusion is seen. There is a well-corticated ossification dorsal to the tarsometatarsal joints. There are small enthesophytes at the posterior and plantar calcaneus. IMPRESSION: No acute osseous abnormality is seen in the right foot. Dictated by: Dictated on workstation # [id number]
--- NOTE | 2019-03-09 11:04 | ED Lower Extremity ---
General Chief Complaint: Lower Extremity Stated Complaint: R ANKLE PAIN Nursing Triage Note: Pt ambulated to Rm 9 with complaints of right ankle pain. Pt states she was moving a metal lawnchair yesterday and it feel on her right ankle. Pt reports she can walk on it but it's painful and reports pain is a 8/10 with a burning sensation. Nursing Sepsis Screen: No Definite Risk Source: patient Exam Limitations: no limitations History of Present Illness Date Seen by Provider: Mar 09, 2019 Time Seen by Provider: 08:55 Initial Comments This 53-year-old woman presents to the emergency room with complaints of pain and swelling over the right lateral malleolus after striking her ankle with a heavy metal lawn chair yesterday. She has been using her prescribed pain medications, elevating, icing, and compressive wrapping. She still has significant pain and swelling and would like it evaluated. Any twisting or inversion of the ankle. She denies any fall or other injury. Allergies and Home Medications Allergies Coded Allergies: No Known Drug Allergies (Verified , 04/28/18) Home Medications Albuterol Sulfate 6.7 Gm Hfa.aer.ad, 2 PUFF INH Q4H PRN for SHORTNESS OF BREATH, (Reported) Atorvastatin Calcium 20 Mg Tablet, 20 MG PO DAILY, (Reported) Budesonide/Formoterol Fumarate 10.2 Gm Hfa.aer.ad, 2 PUFF IH BID, (Reported) Cyclobenzaprine HCl 10 Mg Tablet, 10 MG PO TID PRN for MUSCLE SPASMS, (Reported) Diazepam 5 Mg Tablet, 5 MG PO BID PRN for ANXIETY, (Reported) Fluticasone Propionate 9.9 Ml [place].susp, 1 SPRAY NS DAILY, (Reported) 1 SPRAY EACH NARE DAILY Gabapentin 600 Mg Tablet, 600 MG PO BID, (Reported) Hydrocodone Bit/Acetaminophen 1 Tab Tab, 1 EACH PO Q4-6HR PRN for PAIN-MODERATE Prescribed by: NORMA PEREZ on 01/17/19 1424 Metoprolol Succinate 50 Mg Tab.er.24h, 50 MG PO DAILY, (Reported) [place]-3S/Dha/Epa/Fish Oil 1 Each Capsule.dr, 1 EACH PO DAILY, (Reported) Pantoprazole Sodium 40 Mg Tablet.dr, 40 MG PO BID, (Reported) Sertraline HCl 50 Mg Tablet, 50 MG PO DAILY, (Reported) Patient Home Medication List Home Medication List Reviewed: Yes Review of Systems Constitutional: no symptoms reported Musculoskeletal: see HPI Skin: no symptoms reported Psychiatric/Neurological: No Symptoms Reported Past Esuaqfr-Gbkfpi-Gvoswx Hx Patient Social History Alcohol Use: Denies Use Recreational Drug Use: No Smoking Status: Current Everyday Smoker Type Used: Cigarettes Recent Foreign Travel: No Contact w/Someone Who Travel: No Recent Infectious Disease Expo: No Recent Hopitalizations: No Immunizations Up To Date Tetanus Booster (TDap): Unknown Date of Influenza Vaccine: Jun 08, 2018 Seasonal Allergies Seasonal Allergies: Yes Past Medical History Surgeries: Yes (NECK MASS, ) Appendectomy, Hysterectomy Respiratory: Yes Sleep Apnea, COPD Currently Using CPAP: Yes Currently Using BIPAP: No Cardiac: Yes Hypertension, Irregular Heartbeat Neurological: No 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 Disorders: No Female 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 Sexually Transmitted Disease: No HIV/AIDS: No Genitourinary: No Gastrointestinal: Yes Gastroesophageal Reflux, Irritable Bowel Musculoskeletal: Yes Arthritis, Chronic Back Pain Endocrine: No Loss of Vision: Denies Hearing Impairment: Denies, Hard of Hearing Cancer: No (dysplastic uterine tumors status post hysterectomy) Psychosocial: Yes Anxiety, Depression Integumentary: No Blood Disorders: No Adverse Reaction/Blood Tranf: No Family Medical History Heart Disease, Cancer Physical Exam Vital Signs Vital Signs - First Documented 03/09/19 03/09/19 08:52 11:09 Temp 98.2 Pulse 74 Resp 18 B/P (MAP) 166/107 (126) Pulse Ox 99 O2 Delivery Room Air Capillary Refill : Less Than 3 Seconds Height, Weight, BMI Height: 5'2.00" Weight: 175lbs. 0.0oz. 79.811665ar; 32.4 BMI Method:Stated General Appearance: WD/WN, no apparent distress HEENT: normal ENT inspection Respiratory: normal breath sounds, no respiratory distress Legs: right leg non-tender, right leg normal inspection, right leg normal range of motion, right leg no evidence of injury Ankles: right ankle normal range of motion, right ankle bone tenderness, right ankle pain, right ankle swelling, right ankle other (findings are over the lateral malleolus) Feet: right foot non-tender, right foot normal inspection, right foot normal range of motion, right foot no evidence of injury Neurologic/Tendon: normal sensation, normal motor functions, normal tendon functions 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 Foot was included because the pain and tenderness extended down inferior to the malleolus. X-rays were unremarkable. Patient was advised to continue wrapping, icing, and elevating. Diagnostic Imaging Diagonstic Imaging: Xray Plain Films/CT/US/NM/MRI: ankle Comments Right ankle x-ray viewed by me and report reviewed. See report below: NAME: ANDREW CEDILLO [facility] REC#: [id number] PT STATUS: DEP ER : 1965 PHYSICIAN: MARY CARTAGENA MD ADMIT DATE: 03/09/19/ER Signed Date of Exam: 03/09/19 ANKLE, RIGHT, 3 VIEWS PATIENT HISTORY: Pain and swelling at the lateral malleolus of the right ankle. Injury. TECHNIQUE: Three views of the right ankle. COMPARISON: 12/27/2015. FINDINGS: No acute fracture or dislocation is seen in the right ankle. Alignment appears normal. The ankle mortise is symmetric and the talar dome is intact. There is mild lateral soft tissue edema. No significant joint effusion is seen. There are enthesophytes at the calcaneus. IMPRESSION: No acute osseous abnormality is seen in the right ankle. There is mild lateral soft tissue edema. Dictated by: Dictated on workstation # [id number] Dict: 03/09/19 0936 Trans: 03/09/19 1207 Interpreted by: CHRISTIANO ROWAN MD Electronically signed by: CHRISTIANO ROWAN MD 03/09/19 1207 Diagonstic Imaging: Xray Plain Films/CT/US/NM/MRI: other (right foot) Comments Right foot x-ray viewed by me and report reviewed. See report below: NAME: ANDREW CEDILLO [facility] REC#: [id number] PT STATUS: DEP ER : 1965 PHYSICIAN: MARY CARTAGENA MD ADMIT DATE: 03/09/19/ER Signed Date of Exam: 03/09/19 FOOT, RIGHT, 3 VIEW PATIENT HISTORY: Right foot and ankle pain. Injury. TECHNIQUE: Three views of the right foot. COMPARISON: 12/27/2015. FINDINGS: No acute fracture is seen in the right foot. Alignment appears normal. There are minimal degenerative changes at the great toe metatarsophalangeal joint. No joint effusion is seen. There is a well-corticated ossification dorsal to the tarsometatarsal joints. There are small enthesophytes at the posterior and plantar calcaneus. IMPRESSION: No acute osseous abnormality is seen in the right foot. Dictated by: Dictated on workstation # [id number] Dict: 03/09/19 0937 Trans: 03/09/19 1207 Interpreted by: CHRISTIANO ROWAN MD Electronically signed by: CHRISTIANO ROWAN MD 03/09/19 1207 Departure Impression Primary Impression: Contusion of right ankle Qualified Codes: S90.01XA - Contusion of right ankle, initial encounter Disposition: 01 HOME, SELF-CARE Condition: Stable Departure-Patient Inst. Decision time for Depature: 11:02 Referrals: JOHANNY KINNEY MD (PCP) Primary Care Physician [facility] (Family) Primary Care Physician Patient Instructions: Contusion (DC) Add. Discharge Instructions: You may take your usual pain medications to help manage the pain. Elevation, icing in 20 minute intervals, and compressive wrapping with an Bryce wrap may be helpful. Return to care if symptoms are not improving as expected or worsening. All discharge instructions reviewed with patient and/or family. Voiced understanding. MARY CARTAGENA MD Mar 09, 2019 11:04
[2019-03-09 11:09] VITALS: BP 166/107
== END 2019-03-09 11:10 | disposition home or self-care (01) ==
LOC: EDUNIT# 08:30 → ER 08:31
DX: S90.01XA Contusion of right ankle, initial encounter (principal); I10 Essential (primary) hypertension; K21.9 Gastro-esophageal reflux disease without esophagitis; K58.9 Irritable bowel syndrome, unspecified; F32.9 Major depressive disorder, single episode, unspecified; F41.9 Anxiety disorder, unspecified; F17.210 Nicotine dependence, cigarettes, uncomplicated; Z90.49 Acquired absence of other specified parts of digestive tract; Z90.710 Acquired absence of both cervix and uterus; Z79.51 Long term (current) use of inhaled steroids; W22.8XXA Striking against or struck by other objects, initial encounter
CPT/HCPCS: 73610; 73630

== ENCOUNTER 2019-06-08 08:52 | Outpatient (RCR) | payer BC | END 2019-06-13 | disposition home or self-care (01) | PROVIDERS: ATTEND Internal Medicine | DX: M54.16 Radiculopathy, lumbar region (principal) ==

== ENCOUNTER → 2019-06-08 | Outpatient (CLI) | payer BC ==
[2019-06-08 08:27] LABS: ALANINE AMINOTRANSFERASE 48 U/L (0-55); ALBUMIN 4.4 GM/DL (3.2-4.5); ALKALINE PHOSPHATASE 114 U/L (40-136); BILIRUBIN,TOTAL 0.5 MG/DL (0.1-1.0); BUN/CREATININE RATIO 13; CALCIUM 9.2 MG/DL (8.5-10.1); CARBON DIOXIDE 26 MMOL/L (21-32); CHLORIDE 104 MMOL/L (98-107); CHOLESTEROL 174 MG/DL (< 200); CREATININE SERUM 0.95 MG/DL (0.60-1.30); GFR ESTIMATED > 60; GLUCOSE 113 MG/DL (70-105); HDL CHOLESTEROL 33 MG/DL (40-60); POTASSIUM 4.8 MMOL/L (3.6-5.0); SODIUM 138 MMOL/L (135-145); TOTAL PROTEIN 7.5 GM/DL (6.4-8.2); TRIGLYCERIDES 174 MG/DL (<150); VLDL CHOLESTEROL 35 MG/DL (5-40)
== END ==
LOC: LAB 07:52
PROVIDERS: ATTEND Internal Medicine Cardiovascular Disease
DX: I08.1 Rheumatic disorders of both mitral and tricuspid valves (principal); R00.2 Palpitations
CPT/HCPCS: 36415; 80053; 80061

== ENCOUNTER → 2019-06-16 | Outpatient (CLI) | payer BC, OTHER | LOC: CARD 12:45 | PROVIDERS: ATTEND Internal Medicine Cardiovascular Disease | DX: I08.1 Rheumatic disorders of both mitral and tricuspid valves (principal) | CPT/HCPCS: 93306 ==

== ENCOUNTER → 2019-10-18 | Outpatient (CLI) | payer BC, OTHER ==
[~2019-10-18] MED LIST changes: -DIAZ5TAB3 PO; +DIAZ5TAB49 PO; +RT-ALBUTEROL SULF 2.5 MG/3 ML PRE-MIX VIAL INH ONE; +TRM50T PO
--- NOTE | 2019-10-18 08:20 | Diagnostic Imaging Report ---
EXAMINATION: CT Chest without contrast (lung screening). TECHNIQUE: Multiple contiguous axial images were obtained through the chest without the use of intravenous contrast according to lung cancer screening protocol. All CT scans use one or more of the following dose optimizing techniques: automated exposure control, MA and/or KvP adjustment based on a patient size and exam type, or iterative reconstruction. HISTORY: 40 pack year history of smoking. COMPARISON: None available. FINDINGS: There is no edema or pneumonia. No pleural effusion. No pneumothorax. No suspicious nodules. The lungs are moderately emphysematous. Heart size is normal. No pericardial effusion. Aorta is normal in caliber. There is no axillary or supraclavicular lymphadenopathy. There is no mediastinal lymphadenopathy. Limited views of the upper abdomen are normal. There are no suspicious osseus lesions. IMPRESSION: 1. No suspicious pulmonary nodules. LUNG-RADS CATEGORY: 1 MODIFIER: None. OTHER SIGNIFICANT FINDINGS: None. Dictated by: Dictated on workstation # [id number]
== END ==
LOC: RAD 07:54
PROVIDERS: ATTEND Nurse Practitioner Family
DX: Z12.2 Encounter for screening for malignant neoplasm of respiratory organs (principal); R94.2 Abnormal results of pulmonary function studies; G47.33 Obstructive sleep apnea (adult) (pediatric); R06.09 Other forms of dyspnea; F17.210 Nicotine dependence, cigarettes, uncomplicated; Z99.81 Dependence on supplemental oxygen
CPT/HCPCS: 94060; 94726; 94729

== ENCOUNTER → 2020-01-12 | Outpatient (CLI) | payer SELFPAY ==
[~2020-01-12] VITALS: Ht 157 cm; Wt 74.0 kg
[~2020-01-12] MED LIST changes: +CATHETER FLUSH 10 ML SYR IV PRN; +REGADENOSON 0.4 MG/5 ML SYR (LEXISCAN) IV ONE; -RT-ALBUTEROL SULF 2.5 MG/3 ML PRE-MIX VIAL INH ONE
--- NOTE | 2020-01-12 12:25 | STRESS TEST ---
DATE OF SERVICE: 01/12/2020 LEXISCAN MYOVIEW STRESS TEST REFERRING PHYSICIAN: Dr. Jermaine Giles. Baseline heart rate is 71, baseline blood pressure 175/105. Baseline EKG is sinus rhythm with no ischemic changes. In summary, the patient was injected with 10.78 mCi of technetium-99 Myoview and the resting images were obtained. Then, the patient received 0.4 mg of Lexiscan followed by 30.1 mCi of technetium-99 Myoview. Throughout the test, there were no significant EKG changes. The resting and stress images were reviewed and compared in the short axis, horizontal long axis, and vertical long axis views. Review of the images showed good radiotracer uptake with no ischemia or infarction on SPECT images. SSS is 0. TID value 1.04. On the gated images, the left ventricle appeared to be normal size with normal contractility. Calculated ejection fraction is 71%. Job ID: [id number] DocumentID: [id number] Dictated Date: 01/12/2020 11:17:22 Md Senior Research Scientist Date: 01/12/2020 12:24:11 Dictated By: VIOLA AGARWAL MD
== END ==
LOC: CARD 07:05
PROVIDERS: ATTEND Internal Medicine Cardiovascular Disease
DX: R00.2 Palpitations (principal); G47.33 Obstructive sleep apnea (adult) (pediatric); I34.0 Nonrheumatic mitral (valve) insufficiency; R00.8 Other abnormalities of heart beat; Z72.0 Tobacco use
CPT/HCPCS: 78452; 93017

== ENCOUNTER → 2020-05-11 | Outpatient (CLI) | payer SELFPAY ==
[~2020-05-11] MED LIST changes: -CATHETER FLUSH 10 ML SYR IV PRN; -REGADENOSON 0.4 MG/5 ML SYR (LEXISCAN) IV ONE
[2020-05-11 11:44] LABS: ALANINE AMINOTRANSFERASE 17 U/L (0-55); ALBUMIN 4.3 GM/DL (3.2-4.5); ALKALINE PHOSPHATASE 92 U/L (40-136); BILIRUBIN,TOTAL 0.6 MG/DL (0.1-1.0); BUN/CREATININE RATIO 10; CALCIUM 9.4 MG/DL (8.5-10.1); CARBON DIOXIDE 26 MMOL/L (21-32); CHLORIDE 99 MMOL/L (98-107); CHOLESTEROL 155 MG/DL (< 200); CREATININE SERUM 0.84 MG/DL (0.60-1.30); GFR ESTIMATED > 60; GLUCOSE 92 MG/DL (70-105); HDL CHOLESTEROL 31 MG/DL (40-60); POTASSIUM 4.4 MMOL/L (3.6-5.0); SODIUM 134 MMOL/L (135-145); TOTAL PROTEIN 7.6 GM/DL (6.4-8.2); TRIGLYCERIDES 146 MG/DL (<150); VLDL CHOLESTEROL 29 MG/DL (5-40)
== END ==
LOC: LAB 10:48
PROVIDERS: ATTEND Physician Assistant
DX: I10 Essential (primary) hypertension (principal); E78.2 Mixed hyperlipidemia
CPT/HCPCS: 36415; 80053; 80061

== ENCOUNTER → 2020-11-06 | Outpatient (CLI) | payer OTHER ==
[~2020-11-06] MED LIST changes: +SERT-412 PO; +SERT-413 PO; -SERT25TA5 PO; -SERT50TA9 PO
--- NOTE | 2020-11-06 10:25 | Diagnostic Imaging Report ---
EXAMINATION: CT Chest without contrast (lung screening). TECHNIQUE: Multiple contiguous axial images were obtained through the chest without the use of intravenous contrast according to lung cancer screening protocol. All CT scans use one or more of the following dose optimizing techniques: automated exposure control, MA and/or KvP adjustment based on a patient size and exam type, or iterative reconstruction. HISTORY: 43 pack year history of smoking. COMPARISON: 10/18/2019 FINDINGS: There is no edema or pneumonia. No pleural effusion. No pneumothorax. The lungs are moderate severely emphysematous. There is a new vague area of groundglass in the right middle lobe measuring 20 x 13 mm. There is no axillary or supraclavicular lymphadenopathy. There is no mediastinal lymphadenopathy. Heart size is normal. There are no coronary artery calcifications. No pericardial effusion. Aorta is normal in caliber. Limited views of the upper abdomen are unremarkable. There are no suspicious osseus lesions. IMPRESSION: 1. No suspicious pulmonary nodules. LUNG-RADS CATEGORY: 2 MODIFIER: None. Dictated by: Dictated on workstation # [id number]
== END ==
LOC: RAD 10:15
PROVIDERS: ATTEND Nurse Practitioner Family
DX: Z12.2 Encounter for screening for malignant neoplasm of respiratory organs (principal); F17.210 Nicotine dependence, cigarettes, uncomplicated
CPT/HCPCS: 71271

== ENCOUNTER → 2020-11-16 | Outpatient (CLI) | payer OTHER ==
[~2020-11-16] MED LIST changes: +CATHETER FLUSH 10 ML SYR IV PRN; +HOLD METFORMIN - RECEIVED CONTRAST 20 ML VIAL IV SCH; +IOHEXOL 350 MG/ML 100 ML (OMNIPAQUE 350) VIAL IV ONE; +NS 100 ML (IVPB) BAG IV ONE
[2020-11-16 08:30] LABS: CREATININE SERUM 0.86 MG/DL (0.60-1.30); GFR ESTIMATED > 60
[2020-11-16 08:31] LABS: BUN/CREATININE RATIO 7
--- NOTE | 2020-11-16 12:36 | Diagnostic Imaging Report ---
EXAMINATION: CT Chest with intravenous contrast. TECHNIQUE: Multiple contiguous axial images were obtained through the chest after the uneventful administration of intravenous contrast. All CT scans use one or more of the following dose optimizing techniques: automated exposure control, MA and/or KvP adjustment based on a patient size and exam type, or iterative reconstruction. HISTORY: Abnormal finding in lung field. COMPARISON: 11/06/2020 FINDINGS: There is no edema or pneumonia. No pleural effusion. No pneumothorax. No suspicious nodules. The groundglass abnormality in the right middle lobe has resolved consistent with an inflammatory process. There is mild atelectasis in the lung bases. Lungs are moderately emphysematous. There is no axillary or supraclavicular lymphadenopathy. There is no mediastinal lymphadenopathy. Heart size is normal. There are no coronary artery calcifications. No pericardial effusion. Aorta is normal in caliber. Limited views of the upper abdomen are unremarkable. There are no suspicious osseous lesions. IMPRESSION: 1. Right middle lobe groundglass has resolved consistent with an inflammatory process. Dictated by: Dictated on workstation # [id number]
== END ==
LOC: RAD 09:45
PROVIDERS: ATTEND Nurse Practitioner Family
DX: R91.8 Other nonspecific abnormal finding of lung field (principal)
CPT/HCPCS: 36415; 71260; 82565; 84520

== ENCOUNTER → 2020-11-16 | Outpatient (CLI) | payer OTHER ==
[~2020-11-16] MED LIST changes: +BARIUM for suspension 96% w/w (Vanilla Silq Medium Density) PO ONE; +BARIUM for suspension 98% w/w (Vanilla Silq High Density) PO ONE; -CATHETER FLUSH 10 ML SYR IV PRN; -HOLD METFORMIN - RECEIVED CONTRAST 20 ML VIAL IV SCH; -IOHEXOL 350 MG/ML 100 ML (OMNIPAQUE 350) VIAL IV ONE; -NS 100 ML (IVPB) BAG IV ONE
--- NOTE | 2020-11-16 14:25 | Diagnostic Imaging Report ---
INDICATION: Dysphasia. Patient ingested effervescent crystals as well as thin and thick barium and a barium tablet and fluoroscopic evaluation of the esophagus was performed. Multiple spot films were obtained. Total of 1 minute and 26 seconds of fluoroscopic time was utilized. Preliminary radiograph of the chest is unremarkable. The esophagus has a smooth contour. No mass or stricture is seen. No hiatal hernia or gastroesophageal reflux was demonstrated. The barium tablet passed without difficulty to the stomach. IMPRESSION: Unremarkable esophagram. Dictated by: Dictated on workstation # [id number]
== END ==
LOC: RAD 07:45
PROVIDERS: ATTEND Internal Medicine
DX: R13.14 Dysphagia, pharyngoesophageal phase (principal)
CPT/HCPCS: 74220

== ENCOUNTER 2020-12-05 05:36 | Outpatient (CLI) | payer OTHER ==
[~2020-12-05] VITALS: Ht 157.5 cm; Wt 70.4 kg
[~2020-12-05 05:36] MED LIST changes: -BARIUM for suspension 96% w/w (Vanilla Silq Medium Density) PO ONE; -BARIUM for suspension 98% w/w (Vanilla Silq High Density) PO ONE
[2020-12-05] MEDS ORDERED: LISI20TA26 PO (16:05)
[2020-12-05] MEDS ORDERED: AMLO2.5T4 PO (16:05)
[2020-12-05] MEDS ORDERED: CLC600T PO (16:05)
[2020-12-05] MEDS ORDERED: MTP100TCR PO (16:05)
[2020-12-05] MEDS ORDERED: FLUT1DIS26 IH (16:05)
[2020-12-05] MEDS ORDERED: ATOR10TA66 PO (16:05)
[2020-12-05] MEDS ORDERED: ACHD5005 PO (16:05)
[2020-12-05] MEDS ORDERED: DICL75TA2 PO (16:05)
== END 2020-12-05 16:37 | disposition home or self-care (01) ==
LOC: PREOP 05:36
PROVIDERS: ATTEND Surgery
DX: Z01.818 Encounter for other preprocedural examination (principal)

== ENCOUNTER 2020-12-12 09:37 | Day surgery (SDC) | payer OTHER ==
[~2020-12-12] VITALS: Ht 157.5 cm; Wt 70.3 kg
[~2020-12-12 09:37] MED LIST changes: +AMLO2.5T4 PO; +ATOR10TA66 PO; +CLC600T PO; +DICL75TA2 PO; +FLUT1DIS26 IH; +LACTATED RINGERS 1,000 ML IV ONE; +LISI20TA26 PO; +MTP100TCR PO
[2020-12-12] MEDS ORDERED: LACTATED RINGERS 1,000 ML IV STA (09:46)
[2020-12-12 09:57] VITALS: BP 105/75
--- NOTE | 2020-12-12 10:47 | Progress Note-Pre Operative ---
Pre-Operative Progress Note H&P Reviewed The H&P was reviewed, patient examined and no changes noted. Date Seen by Provider: Dec 12, 2020 Time Seen by Provider: 10:46 Date H&P Reviewed: Dec 12, 2020 Time H&P Reviewed: 10:46 Pre-Operative Diagnosis: screening colonoscopy EUFEMIA RAMOS DO Dec 12, 2020 10:47
[2020-12-12] MEDS ORDERED: PROPOFOL INJECTION 50 ML IV ONE (10:52)
[2020-12-12] MEDS ORDERED: MIDAZOLAM 2 MG/2 ML (VERSED) VIAL ONE (10:53)
--- NOTE | 2020-12-12 11:21 | Anesthesia-General Post-Op ---
MAC Patient Condition Mental Status/LOC: Same as Preop Cardiovascular: Satisfactory Nausea/Vomiting: Absent Respiratory: Satisfactory Pain: Controlled Complications: Absent Post Op Complications Complications None Follow Up Care/Instructions Patient Instructions None needed. Anesthesiology Discharge Order Discharge Order Patient is doing well, no complaints, stable vital signs, no apparent adverse anesthesia problems. No complications reported per nursing. JAGUAR GARIBAY CRNA Dec 12, 2020 11:21
[2020-12-12] MEDS ORDERED: proPOfol 200 MG/20 ML (DIPRIVAN) VIAL IV ONE (11:44)
[2020-12-12 12:10] VITALS: BP 139/74
[2020-12-12 12:15] VITALS: BP 129/79
--- NOTE | 2020-12-12 12:19 | Progress Note-Post Operative ---
Post-Operative Progess Note Surgeon (s)/Conveyor Technician (s) Surgeon EUFEMIA RAMOS DO Conveyor Technician: na Pre-Operative Diagnosis screening colonoscopy Post-Operative Diagnosis colon polyp Procedure & Operative Findings Date of Procedure 12/12/20 Procedure Performed/Findings colonoscopy c hot bx polypectomy Anesthesia Type per auger mill operator Estimated Blood Loss Estimated blood loss (mL): none Specimens/Packing Specimens Removed cecum, sigmoid, rectum EUFEMIA RAMOS DO Dec 12, 2020 12:19
[2020-12-12 12:20] VITALS: BP 127/76
--- NOTE | 2020-12-12 12:22 | Discharge Inst-Simple/Standard ---
Discharge Inst-Standard Patient Instructions/Follow Up Plan of Care/Instructions/FU: 2 weeks Daniel Activity as Tolerated: Yes Discharge Diet: Regular Diet EUFEMIA RAMOS DO Dec 12, 2020 12:22
[2020-12-12 12:40] VITALS: BP 119/71
[2020-12-12 12:45] VITALS: BP 119/71
--- NOTE | 2020-12-12 15:34 | OPERATIVE REPORT ---
DATE OF SERVICE: 12/12/2020 PREOPERATIVE DIAGNOSIS: Screening colonoscopy. POSTOPERATIVE DIAGNOSIS: Colon polyps. PROCEDURE: Colonoscopy with hot biopsy polypectomy x3. SURGEON: Eufemia Sanchez DO ANESTHESIA: Per SPLICING MACHINE OPERATOR. ESTIMATED BLOOD LOSS: None. COMPLICATIONS: None. INDICATIONS: The patient is a 55-year-old female needing screening colonoscopy. She understands risks and benefits of procedure and wished to proceed. Consent was signed in the chart. DESCRIPTION OF PROCEDURE: The patient was taken to the endoscopy suite, placed in left lateral recumbent position. Timeout was performed. Digital rectal exam was performed. There were no palpable polyps, masses or ulcerations. Scope was inserted into the rectum and advanced all the way to cecum with minimal difficulty. Prep was adequate with irrigation and suction. In the cecum, a small polyp was present, which hot biopsy polypectomy was performed. Scope was then slowly retracted back. There were no polyps, masses or ulcerations within the ascending, transverse and descending colon. In the sigmoid, small polyp was present, which hot biopsy polypectomy was performed. Scope was then continuously retracted back in the rectum where another small polyp was present, which hot biopsy polypectomy was performed. Scope was retroflexed noting no other pathology. Scope was returned to its normal position, slowly withdrawn until completely removed, noting no other pathology. The patient tolerated procedure well without any complications. She was taken to recovery room in stable condition. RECOMMENDATIONS: The patient will need repeat colonoscopy in 5 years. Any issues before that be seen at that time. The patient will follow up in the office to discuss pathology results and answer any questions. Job ID: [id number] DocumentID: [id number] Dictated Date: 12/12/2020 12:24:44 Radiation Therapist Date: 12/12/2020 15:33:47 Dictated By: EUFEMIA SANCHEZ DO
== END 2020-12-12 12:45 | disposition home or self-care (01) ==
LOC: ENDO 09:37
PROVIDERS: ATTEND Surgery
DX: Z12.11 Encounter for screening for malignant neoplasm of colon (principal); D12.8 Benign neoplasm of rectum; G47.33 Obstructive sleep apnea (adult) (pediatric); I10 Essential (primary) hypertension; E11.40 Type 2 diabetes mellitus with diabetic neuropathy, unspecified; J44.9 Chronic obstructive pulmonary disease, unspecified; F32.9 Major depressive disorder, single episode, unspecified; F41.9 Anxiety disorder, unspecified; K44.9 Diaphragmatic hernia without obstruction or gangrene; E66.9 Obesity, unspecified; R00.2 Palpitations; G89.29 Other chronic pain; M54.9 Dorsalgia, unspecified; I07.1 Rheumatic tricuspid insufficiency; F17.210 Nicotine dependence, cigarettes, uncomplicated; Z68.28 Body mass index [BMI] 28.0-28.9, adult; Z99.81 Dependence on supplemental oxygen; Z79.891 Long term (current) use of opiate analgesic; Z79.51 Long term (current) use of inhaled steroids; Z79.899 Other long term (current) drug therapy; Z80.9 Family history of malignant neoplasm, unspecified; Z90.89 Acquired absence of other organs

== ENCOUNTER → 2020-12-21 | Outpatient (CLI) | payer OTHER ==
[~2020-12-21] MED LIST changes: -LACTATED RINGERS 1,000 ML IV ONE; +RT-ALBUTEROL SULF 2.5 MG/3 ML PRE-MIX VIAL INH ONE
== END ==
LOC: RT 10:00
PROVIDERS: ATTEND Internal Medicine Critical Care Medicine
DX: R06.00 Dyspnea, unspecified (principal)
CPT/HCPCS: 94060; 94726; 94729

== ENCOUNTER → 2021-01-19 | Outpatient (CLI) | payer OTHER ==
[~2021-01-19] MED LIST changes: +CALC600T91 PO; -CLC600T PO; -RT-ALBUTEROL SULF 2.5 MG/3 ML PRE-MIX VIAL INH ONE
== END ==
LOC: CARD 10:34
PROVIDERS: ATTEND Internal Medicine Cardiovascular Disease
DX: I10 Essential (primary) hypertension (principal)
CPT/HCPCS: 93306

== ENCOUNTER → 2021-06-27 | Outpatient (CLI) | payer OTHER ==
[~2021-06-27] MED LIST changes: +CATHETER FLUSH 10 ML SYR IV PRN; +HOLD METFORMIN - RECEIVED CONTRAST 20 ML VIAL IV SCH; +IOHEXOL 350 MG/ML 100 ML (OMNIPAQUE 350) VIAL IV ONE; +NS 100 ML (IVPB) BAG IV ONE
[2021-06-27 09:15] LABS: CREATININE SERUM 0.98 MG/DL (0.60-1.30)
--- NOTE | 2021-06-27 10:42 | Diagnostic Imaging Report ---
PROCEDURE: CT chest with contrast only. TECHNIQUE: Multiple contiguous axial images were obtained through the chest after administration of intravenous contrast. Auto Exposure Controls were utilized during the CT exam to meet ALARA standards for radiation dose reduction. DATE: June 27, 2021. COMPARISON: CT chest November 16, 2020. INDICATION: 55-year-old female, shortness of breath. FINDINGS: There are findings of upper lobe predominant centrilobular and paraseptal emphysema. There is no identified pulmonary nodule. There is no lung mass. There is no otherwise noted focal airspace consolidation. There is no pneumothorax. There is no pleural effusion. Central airways are patent. There is no identified pulmonary embolus. The main pulmonary artery diameter is within normal limits. The heart is not enlarged. There is no pericardial effusion. There are atherosclerotic calcifications. There is a left hilar lymph node on axial image 56 measuring 11 mm in short axis. There are additionally mildly prominent left and right hilar lymph nodes. An additional example right hilar lymph node measures 10 mm in short axis on axial image 61. There are subcentimeter short axis peritracheal lymph nodes. There is no abnormally enlarged axillary lymph node which meets CT size criteria for adenopathy. There is a 3 mm nonobstructing left renal stone on axial image 140. There is no identified acute bony abnormality. IMPRESSION: CT CHEST. 1. Upper lobe predominant findings of centrilobular and paraseptal emphysema. 2. No acute cardiopulmonary abnormality. 3. Prominent bilateral hilar lymph nodes measuring up to 12 mm in short axis. These are stable to mildly decreased in size since prior exam. There are additional subcentimeter short axis mediastinal lymph nodes which are less prominent compared to November 16, 2020. 4. 3 mm nonobstructing left renal stone. Dictated by: Dictated on workstation # [id number]
== END ==
LOC: RAD 09:45
PROVIDERS: ATTEND Nurse Practitioner Family
DX: J43.2 Centrilobular emphysema (principal); J43.8 Other emphysema; N20.0 Calculus of kidney
CPT/HCPCS: 36415; 71260; 82565; 84520

== ENCOUNTER → 2021-12-17 | Outpatient (CLI) | payer OTHER ==
[~2021-12-17] MED LIST changes: -CATHETER FLUSH 10 ML SYR IV PRN; +CYCL10TA25 PO; -CYCL10TA9 PO; -HOLD METFORMIN - RECEIVED CONTRAST 20 ML VIAL IV SCH; -IOHEXOL 350 MG/ML 100 ML (OMNIPAQUE 350) VIAL IV ONE; -NS 100 ML (IVPB) BAG IV ONE
[2021-12-17 08:36] LABS: ALBUMIN 4.1 GM/DL (3.2-4.5); BILIRUBIN,TOTAL 0.4 MG/DL (0.1-1.0); CALCIUM 9.3 MG/DL (8.5-10.1); CREATININE SERUM 0.91 MG/DL (0.60-1.30); POTASSIUM 4.6 MMOL/L (3.6-5.0); TOTAL PROTEIN 7.3 GM/DL (6.4-8.2)
== END ==
LOC: LAB 07:46
PROVIDERS: ATTEND Internal Medicine Cardiovascular Disease
DX: E78.2 Mixed hyperlipidemia (principal)
CPT/HCPCS: 36415; 80053; 80061

== ENCOUNTER → 2022-12-11 | Outpatient (CLI) | payer SELFPAY ==
[~2022-12-11] MED LIST changes: +OMEP20TA56 PO; -OMEP20TA7 PO; +RT-ALBUTEROL SULF 2.5 MG/3 ML PRE-MIX VIAL INH ONE
== END ==
LOC: RT 10:04
PROVIDERS: ATTEND Nurse Practitioner Family
DX: J44.9 Chronic obstructive pulmonary disease, unspecified (principal)
CPT/HCPCS: 94060; 94726; 94729

== ENCOUNTER → 2023-01-01 | Outpatient (CLI) | payer OTHER ==
[~2023-01-01] MED LIST changes: -RT-ALBUTEROL SULF 2.5 MG/3 ML PRE-MIX VIAL INH ONE
== END ==
LOC: CARD 10:37
PROVIDERS: ATTEND Nurse Practitioner Family
DX: J90 Pleural effusion, not elsewhere classified (principal); J43.9 Emphysema, unspecified; G47.33 Obstructive sleep apnea (adult) (pediatric)
CPT/HCPCS: 93306

== ENCOUNTER → 2023-04-30 | Outpatient (CLI) | payer OTHER ==
[~2023-04-30] MED LIST changes: +CATHETER FLUSH 10 ML SYR IVP PRN
[2023-04-30 09:30] VITALS: BP 140/94
[2023-04-30 09:39] VITALS: BP 134/104
[2023-04-30 09:47] VITALS: BP 134/104
[2023-04-30 09:48] VITALS: BP 147/93
--- NOTE | 2023-04-30 16:45 | Cardiology Stress Test Report ---
Stress Test Report Date of Procedure/Referring: Date of Procedure: Apr 30, 2023 PCP Ansley Laws Aprn Admitting Physician Admitting Physician: Attending Physician: Kiah Smith MD Baseline Heart Rate: 75 Baseline Blood Pressure: Blood Pressure Systolic: 147 Blood Pressure Diastolic: 93 Vital Signs Date Time Temp Pulse Resp B/P (MAP) Pulse Ox O2 Delivery O2 Flow Rate FiO2 04/30/23 09:30 84 17 140/94 (109) 99 Baseline Vital Signs Vital Signs Date Time Temp Pulse Resp B/P (MAP) Pulse Ox O2 Delivery O2 Flow Rate FiO2 04/30/23 09:30 84 17 140/94 (109) 99 Baseline EKG: Baseline EKG: NSR Summary: After explaining the procedure and details to the patient, she signed the consent and was brought to the stress nuclear laboratory. Patient exercised on standard Jesus protocol, EKG, heart rate and blood pressure were monitored continuously, resting and stress doses of radio tracer were injected, imaging was acquired and reviewed in the short axis, horizontal long axis and vertical long axis views Patient was able to exercise for a total of 8 minutes on Jesus protocol, METs 8.5 Maximum heart rate 151 Maximum blood pressure 147/99 Stress EKG, Minimal nondiagnostic changes Recovery EKG, Return to baseline TID: 1.04 SSS: 2 SDS: 2 EF: 84 Conclusion: Good exercise tolerance for a total of 8 minutes on standard Jesus protocol, 8.5 METS achieving 93% of maximal expected heart rate Appropriate heart rate and blood pressure response to exercise return to baseline during recovery No ischemia or infarction noted on SPECT images Normal left ventricular size, ejection fraction 84% Copy Copies To 1: [facility] [place] KIAH SMITH MD Apr 30, 2023 16:44
== END ==
LOC: CARD 07:37
PROVIDERS: ATTEND Internal Medicine Cardiovascular Disease
DX: R06.09 Other forms of dyspnea (principal)
CPT/HCPCS: 78452; 93017; A9502